=== PATIENT | male | born 1980 | race Caucasian/White ===

== ENCOUNTER 2020-12-12 20:19 | Emergency (ER) | payer OTHER, MEDICAID, SELFPAY ==
[2020-12-12 20:38] VITALS: BP 120/80; PULSE 68; RESP 16; TEMP 37.1; O2SAT 95; BMI 27.1
--- NOTE | 2020-12-13 00:17 | ED_ITS ---
HPI - Chest Pain General: Chief Complaint: Chest Pain Stated Complaint: chest burning, denies pain Time Seen by Provider: 12/13/20 00:17 History of Present Illness: HPI narrative: Mr. Rico is a 40-year-old gentleman with history of GERD requiring what was likely a Daisy procedure who presents emergency department due to worsening epigastric and abdominal pain. He had relief from his preliminary symptoms which were primarily difficulty swallowing after the procedure however over the past 3 months has had gradual onset of worsening of burning epigastric pain and generalized abdominal pain. He occasionally reports small-volume hematemesis. He denies associated lightheadedness, dizziness, shortness of breath. He denies infectious symptoms. Overall the course of symptoms has been worsening. No other specific exacerbating relieving factors. Review of Systems General: Reports: 10 or more systems reviewed and unremarkable except in HPI and below Narrative: CONSTITUTIONAL: denies fever, fatigue, weakness EYES - denies pain, denies loss of vision EARS - denies ear issues. NOSE - denies congestion or rhinorrhea. THROAT - denies sore throat or difficulty swallowing. CARDIOVASCULAR - denies chest pain and palpitations RESPIRATORY - denies shortness of breath and cough GASTROINTESTINAL -see HPI GENITOURINARY - denies dysuria or urinary frequency MUSCULOSKELETAL- denies deformity or pain SKIN - denies rashes or new changed skin lesions NEUROLOGIC - denies focal weakness or sensory changes HEMATOLOGIC/LYMPHATIC - denies easy bruising or lymphadenopathy. Physical Exam Narrative: EXAM NARRATIVE: GENERAL/CONSTITUTIONAL - well-appearing. Discomfort due to pain Eyes - PERRL, no conjunctival injection ENMT - Atraumatic external nose and ears. Moist mucous membranes NECK - supple. trachea midline CARDIOVASCULAR - regular rate and rhythm. Peripheral pulses 2+ and equal RESPIRATORY -clear to auscultation bilaterally. No retractions or accessory muscle use. ABDOMEN/GI -moderate tenderness to palpation in the epigastric region.Nondistended. No tenderness to percussion or evidence of peritonitis MSK - Extremities without obvious deformity or tenderness to palpation SKIN - Warm, Dry NEURO - alert and appropriately oriented. strength and sensation intact. Moves all extremities equally. PSYCH - Appropriate mood and affect Course ED course: - Patient was seen and evaluated by me at bedside - Patient placed on cardiac monitors, IV access obtained - Initial evaluation notable for exam as noted above - symptom treatment ordered - Labs notable for mild leukocytosis, no transaminitis or elevation in lipase -Given physical exam findings and complex surgical history imaging warranted. Imaging notable for no acute abnormality to explain patient's symptoms - Upon serial reexamination after treatment the patient was improved. He tolerated p.o. intake - Based on patient history, evaluation, labs, and imaging as interpreted the most likely cause of the patient's condition is unclear, given surgical history he likely requires EGD which can be performed in the outpatient setting given stable hemoglobin and CT findings. - The results of ED evaluation were discussed with the patient including prescriptions and/or symptomatic cares (if applicable) including appropriate and responsible use, followup plan, and return precautions. The patient verbalized understanding and felt safe for discharge. - Patient discharged in satisfactory condition. Vital Signs: Vital signs: Vital Signs Temperature 98.7 F 12/12/20 20:38 Pulse Rate 53 L 12/13/20 04:26 Respiratory Rate 18 12/13/20 04:26 Blood Pressure 125/94 12/13/20 04:26 Pulse Oximetry 97 12/13/20 04:26 MDM - Chest Pain Medical Records: Attestation: I reviewed the patient's medical records. Lab Data: Attestation: I reviewed the patient's lab results. Labs: Lab Results 12/13/20 12/13/20 Range/Units 00:25 00:25 WBC 11.6 H (4.0-10.0) 10^3/ uL RBC 4.84 (4.1-5.3) 10^6/u L Hgb 14.9 (11.7-16.6) g/dL Hct 45.1 (42.0-52.0) % MCV 93.2 (80-94) fl MCH 30.8 (28.0-34.0) pg MCHC 33.0 (30.0-36.0) g/dL RDW 13.3 (12.1-15.1) % Plt Count 294 (130-400) 10^3/c mm MPV 10.3 (7.4-10.4) fL Neut % (Auto) 54.4 % Lymph % (Auto) 34.0 % [place] % (Auto) 7.4 % Eos % (Auto) 3.1 % Baso % (Auto) 0.8 % Neut # (Auto) 6.31 (1.8-7.7) 10^3/u L Lymph # (Auto) 3.9 (0.8-4.8) 10^3/u L [place] # (Auto) 0.9 (0.2-0.9) 10^3/u L Eos # (Auto) 0.4 (0.0-0.8) 10^3/u L Baso # (Auto) 0.1 (0.0-0.1) 10^3/u L Nucleated RBC % (a uto) 0 % Nucleated RBCs # 0.0 /100WBC Sodium 141 (136-145) mmol/L Potassium 3.3 L (3.5-5.1) mmol/L Chloride 102 (98-107) mmol/L Carbon Dioxide 29 (22-29) mmol/L Anion Gap 13.3 (5-19) BUN 11 (6-20) mg/dL Creatinine 0.6 L (0.7-1.2) mg/dL GFR Calculation 150.0 H (90-130) mL/min Glucose 87 (65-115) mg/dL Calculated Osmolal ity 291 (285-295) mOsm/k g Calcium 8.9 (8.5-10.5) mg/dL Total Bilirubin 0.4 (0.15-1.2) mg/dL AST 17 (0-40) U/L ALT 25 (0-41) U/L Alkaline Phosphata se 112 (40-130) IU/L Total Protein 6.6 (6.6-8.7) g/dL Albumin 4.2 (3.5-5.2) g/dL Globulin 2.4 (1.3-4.6) g/dL Lipase 26 (13-60) U/L Discharge Plan Discharge Patient Disposition: Home Clinical Impression: Abdominal pain, Hematemesis Condition: Stable Prescriptions: New Zofran 4 mg tablet 4 mg PO TID PRN (Reason: nausea and vomiting) 5 Days Qty: 20 RF: 0 oxycodone 5 mg tablet 5 mg PO Q4H PRN (Reason: pain) Qty: 6 RF: 0 Discharge Orders: Discharge ED (Routine); Ordered 12/13/20 Ordered By: Harrison Cruz Discharge Diet: Usual diet Discharge Activity: Resume usual activity Patient Instructions: Abdominal Pain (ED), Opioid Safety Activity Restrictions/Additional Instructions: Thank you for visiting the emergency department. You were seen and evaluated for abdominal pain and hematemesis. The exact cause of your symptoms is somewhat unclear, your blood counts were stable. Given your complex history you likely need endoscopy. Please follow-up with your primary care provider. Please return to the emergency department for anything that you are concerned about and feel needs emergency department evaluation. Coding Level of Care Code ED Bacteriologist Food for Clair Mathew
[2020-12-13 00:28] VITALS: BP 130/85; PULSE 71; RESP 18; O2SAT 98
--- NOTE | 2020-12-13 00:38 | CTR_ITS ---
PROCEDURE INFORMATION: Exam: CT Chest With Contrast; Diagnostic Exam date and time: 12/13/2020 12:38 AM Age: 40 years old Clinical indication: Abdominal pain; Generalized; On breathing; Additional info: Hematemesis, history of lily, abd pain TECHNIQUE: Imaging protocol: Diagnostic computed tomography of the chest with contrast. Radiation optimization: All CT scans at this facility use at least one of these dose optimization techniques: automated exposure control; mA and/or kV adjustment per patient size (includes targeted exams where dose is matched to clinical indication); or iterative reconstruction. Contrast material: OMNI 300; Contrast volume: 95 ml; Contrast route: INTRAVENOUS (IV); COMPARISON: CT Abdomen/Pelvis Renal [id number] 08/07/2015 11:41 PM RADIATION DOSE METRICS: Total DLP (mGy-cm): 1933.03 FINDINGS: Lungs: Continued centrilobular bleb in the right lower lobe. Interval dependent atelectasis in both lower lobes. Minimal lingular stranding again evident. No ground-glass opacities or consolidation. Pleural spaces: No pneumothorax or pleural fluid. Heart: Interval inclusion of the area of the LAD calcifications. Continued slight cardiac prominence. No pericardial effusion. Aorta: No aortic aneurysm or dissection. Lymph nodes: No enlarged nodes. Bones/joints: Old compression fractures. No change in the degree of wedging of the lower thoracic compression fractures. Interval appearance of a thin linear sclerotic focus in the anterior aspect of the T12 compression fracture; no cortical buckling or discontinuity and no obvious fracture line in this area. Possible presence of a few old right rib fractures. Soft tissues: No acute soft tissue finding. IMPRESSION: 1. Interval dependent atelectasis. Chronic findings in the lower lungs detailed above. 2. LAD calcifications. Continued slight cardiac prominence. 3. Conceivable interval infraction of T12, age unknown. Other findings detailed above. PROCEDURE INFORMATION: Exam: CT Abdomen And Pelvis With Contrast Exam date and time: 12/13/2020 12:38 AM Age: 40 years old Clinical indication: Abdominal pain; Generalized; On breathing; Additional info: Hematemesis, history of lily, abd pain TECHNIQUE: Imaging protocol: Computed tomography of the abdomen and pelvis with contrast. Radiation optimization: All CT scans at this facility use at least one of these dose optimization techniques: automated exposure control; mA and/or kV adjustment per patient size (includes targeted exams where dose is matched to clinical indication); or iterative reconstruction. Contrast material: OMNI 300; Contrast volume: 95 ml; Contrast route: INTRAVENOUS (IV); COMPARISON: CT Abdomen/Pelvis Renal [id number] 08/07/2015 11:41 PM RADIATION DOSE METRICS: Total DLP (mGy-cm): 1933.03 FINDINGS: Liver: Continued slightly heterogeneous density in the liver, with parts of the liver having significantly lower density than in the spleen. No apparent enhancing liver mass. Gallbladder and bile ducts: Interval cholecystectomy. Still no biliary ductal dilatation. Pancreas: Pancreas still unremarkable. Spleen: Still no splenomegaly. Adrenal glands: Still no adrenal mass. Kidneys and ureters: Interval prominent enlargement of the irregular stone in the lower right kidney measuring 8.2 mm in oblique depth by 2.3 cm in oblique width. Still no hydronephrosis. Stomach and bowel: Interval Lily fundoplication. Still no obstruction. No apparent mucosal thickening. Appendix: Still no appendicitis. Intraperitoneal space: Still no free air. No change in the approximately 14 mm ovoid calcification in Morison's pouch. Vasculature: Continued atherosclerosis. Still no aortic aneurysm. Lymph nodes: No enlarged nodes. Urinary bladder: Unremarkable as visualized. Reproductive: Unremarkable as visualized. Bones/joints: Interval appearance of the horizontal thin sclerotic focus in the superior aspect of the mild L1 compression fracture, but no change in its wedging; still no cortical buckling in this body. No acute fracture elsewhere. Continued narrowing of the 2 lowest lumbar discs with annular bulging and/or a central focal disc protrusion at L4-L5. Soft tissues: Continued small left inguinal hernia containing fat. Small subcutaneous calcification in the lower lateral right hip possibly related to a prior injection; no inclusion of this area previously. CT/CT chest abd pel w con* IMPRESSION: 1. Possible interval infraction of L1, age unknown. 2. No apparent acute intra-abdominal findings. Interval cholecystectomy and Lily fundoplication. 3. Interval prominent enlargement of the irregular stone in the lower right kidney. Patchy fatty infiltration of the liver still conceivable. Other findings detailed above. Radiation Dose CTDIVOL = (mGy): DLP = 1933.03~1933.03 (mGy-cm)
[2020-12-13] MEDS: famotidine 20 mg/2 mL INJ 40 MG IVP (00:57)
[2020-12-13] MEDS: lidocaine 2% viscous 15 ML, aluminum-mag hydrox-simethicon 30 ML, sucralfate oral liq 1 GM PO (00:57)
[2020-12-13 00:58] VITALS: BP 130/85; PULSE 55; RESP 16; O2SAT 97
[2020-12-13] MEDS: sodium chloride 0.9% 1,000 ML 999 ML IV (01:00)
[2020-12-13] MEDS: iohexol 300 mg/mL 100 mL Btl IV (01:16)
[2020-12-13 02:14] LABS: Basophils # 0.1 10^3/uL (0.0-0.1); Basophils % 0.8 %; Eosinophils # 0.4 10^3/uL (0.0-0.8); Eosinophils % 3.1 %; Hematocrit 45.1 % (42.0-52.0); Hemoglobin 14.9 g/dL (11.7-16.6); Lymphocytes # 3.9 10^3/uL (0.8-4.8); Mean Corpuscular Hemoglobin 30.8 pg (28.0-34.0); Mean Corpuscular Volume 93.2 fl (80-94); Mean Platelet Volume 10.3 fL (7.4-10.4); Monocytes # 0.9 10^3/uL (0.2-0.9); Monocytes % 7.4 %; Neutrophils # 6.31 10^3/uL (1.8-7.7); Neutrophils % 54.4 %; Nucleated Red Blood Cells % 0 %; Platelet Count 294 10^3/cmm (130-400); Red Blood Count 4.84 10^6/uL (4.1-5.3); Red Cell Distribution Width 13.3 % (12.1-15.1); White Blood Count 11.6 10^3/uL (4.0-10.0)
[2020-12-13 02:23] LABS: Alanine Aminotransferase 25 U/L (0-41); Albumin Level 4.2 g/dL (3.5-5.2); Alkaline Phosphatase 112 IU/L (40-130); Anion Gap 13.3 (5-19); Aspartate Amino Transferase 17 U/L (0-40); Blood Urea Nitrogen 11 mg/dL (6-20); Calcium 8.9 mg/dL (8.5-10.5); Carbon Dioxide 29 mmol/L (22-29); Chloride 102 mmol/L (98-107); Globulin 2.4 g/dL (1.3-4.6); Glucose 87 mg/dL (65-115); Lipase 26 U/L (13-60); Osmolality Calculated 291 mOsm/kg (285-295); Potassium 3.3 mmol/L (3.5-5.1); Sodium 141 mmol/L (136-145); Total Bilirubin 0.4 mg/dL (0.15-1.2); Total Protein 6.6 g/dL (6.6-8.7)
[2020-12-13] MEDS: potassium chloride oral liq 20 mEq/15 mL UDC PO (03:34)
[2020-12-13 04:26] VITALS: BP 125/94; PULSE 53; RESP 18; O2SAT 97
--- NOTE | 2020-12-13 11:18 | DCPLANNER ---
manager speech had message to schedule an outpatient EGD for patient. manager speech sent patients information to Marlon Mcclellan at [facility] [place] General Surgery for a consult for an EGD. Patients information will be printed and reviewed. Clinic will call patient with appointment information.
--- NOTE | 2020-12-15 09:52 | DCPLANNER ---
Patient has a follow up appointment scheduled for , December 23, 2020 at 2:[address] Foreman at [facility] General Surgery. Clinic will call patient with appointment information.
--- NOTE | 2020-12-24 09:01 | DCPLANNER ---
Patient had a follow up appointment scheduled for 12.23.20 with general surgery - patient did attend appointment.
== END 2020-12-13 04:21 | disposition home or self-care (01) ==
PROVIDERS: Emergency Provider Emergency Medicine
DX: R10.9 Unspecified abdominal pain (principal); K92.0 Hematemesis
CPT/HCPCS: 71260; 74177; 80053; 83690; 85025; 96374; 99284; J3490; J7030; Q9967

== ENCOUNTER 2020-12-27 20:33 | Emergency (ER) | payer OTHER, SELFPAY ==
[2020-12-27 21:21] VITALS: BP 115/75; PULSE 99; RESP 20; TEMP 36.7; O2SAT 96
[2020-12-28] MEDS: lidocaine 2% viscous 15 ML, aluminum-mag hydrox-simethicon 30 ML, sucralfate oral liq 1 GM PO (01:25)
--- NOTE | 2020-12-28 01:30 | W.ED.ABDPA2 ---
HPI - Abdominal Pain General: Chief Complaint: Abdominal Pain Stated Complaint: chest burning/back burning, abdomen pain Time Seen by Provider: 12/28/20 01:30 History of Present Illness: HPI narrative: Patient comes in tonight with complaints of persistent vomiting and epigastric pain. Patient states that symptoms started this evening. Patient has a history of procedure for gastric esophageal reflux disorder. Patient recently been in the ER about 2 weeks ago for similar complaints and had been worked up thoroughly. Patient is also seeing Dr. Bertrand general surgeon for further evaluation. Associated Symptoms: Reports nausea and vomiting Review of Systems General: Reports: 10 or more systems reviewed and unremarkable except in HPI and below GI: Reports: abdominal pain, nausea and vomiting PFSH ED PFSH: Social History Smoking and tobacco status: never smoked Physical Exam Const: COMMON NORMALS: no acute distress and patient oriented x3 GENERAL APPEARANCE: cooperative HENMT: COMMON NORMALS: normocephalic, TM's normal bilaterally and Normal external nose present HEAD & SCALP: normal to inspection and normocephalic NOSE: Normal external nose present TYMPANIC MEMBRANE: TM's normal bilaterally MOUTH: Normal oral and palatal mucosa present THROAT: posterior oropharynx normal Eye: GENERAL EYE: appearance normal, both eyes and all related structures Neck/C-Spine: COMMON NORMALS: full ROM Lymph: LYMPHATIC: no lymphadenopathy noted Chest: COMMONS NORMALS: normal inspection of the chest Resp: COMMON NORMALS: normal respiratory effort EFFORT & INSPECTION: Yes able to speak in complete sentences Cardio: COMMON NORMALS: regular rate and regular rhythm RATE: regular rate RHYTHM: regular rhythm GI: COMMON NORMALS: Soft to palpation PALPATION: Yes Soft to palpation and Yes Tenderness to palpation present (GI) (Epigastric) : COMMON NORMALS: Yes no CVA tenderness BLADDER/KIDNEY EXAM: Yes no CVA tenderness Back/Pelvis: COMMON NORMALS: no CVA tenderness and thoracic and lumbar spine normal to inspection Extremity: COMMON NORMALS: normal to inspection Neuro: COMMON NORMALS: patient oriented x3 and moves all extremities Psych: COMMON NORMALS: mental status grossly normal and cooperative Skin: COMMON NORMALS: no rashes or lesions noted GENERAL SKIN EXAM: no rashes or lesions noted Course Vital Signs: Vital signs: Vital Signs Temperature 98.1 F 12/27/20 21:21 Pulse Rate 68 12/28/20 01:42 Respiratory Rate 19 H 12/28/20 01:42 Blood Pressure 123/77 12/28/20 01:42 Pulse Oximetry 96 12/28/20 01:42 MDM - Abdominal Pain MDM Narrative: Medical decision making narrative: Patient comes in for episodes of nausea and vomiting over the last 4 months. Patient has had a history of GERD with possible surgical repair. Patient been seen about 2 weeks ago and had a CT scan at that time which showed no significant abnormalities. Patient was referred to Dr. Doss and was evaluated with recommendations for a upper GI. Patient came in tonight when he had increased episodes of nausea and vomiting. On exam abdomen was soft with some epigastric tenderness. Skin was warm and dry. Vital signs were normal. Differential diagnosis includes dehydration, ruptured esophagus, GERD. Acute abdomen series noted normal gas bowel pattern without any signs of rupture. Laboratory values were unremarkable. Patient was given 1 L of IV fluids with 10 mg of Reglan and 40 mg of pantoprazole. We will start patient back on Reglan which he was supposed to be taking but he states that he has not picked up the prescription yet. We will also keep patient on some pantoprazole for further gastric relief. Patient was recommended to continue with treatment with primary care. Case management was requested to help patient with primary care to establish. Lab Data: Labs: Lab Results 12/28/20 12/28/20 12/28/20 00:24 00:24 00:24 WBC 11.6 10^3/uL H 10 ^3/uL (4.0-10.0) RBC 5.06 10^6/uL 10^6 /uL (4.1-5.3) Hgb 15.5 g/dL g/dL (11.7-16.6) Hct 48.4 % % (42.0-52.0) MCV 95.7 fl H fl (80-94) MCH 30.6 pg pg (28.0-34.0) MCHC 32.0 g/dL g/dL (30.0-36.0) RDW 13.7 % % (12.1-15.1) Plt Count 280 10^3/cmm 10^3 /cmm (130-400) MPV 9.8 fL fL (7.4-10.4) Neut % (Auto) 43.9 % % Lymph % (Auto) 40.0 % % [place] % (Auto) 9.2 % % Eos % (Auto) 5.5 % % Baso % (Auto) 1.1 % % Neut # (Auto) 5.08 10^3/uL 10^3 /uL (1.8-7.7) Lymph # (Auto) 4.6 10^3/uL 10^3/ uL (0.8-4.8) [place] # (Auto) 1.1 10^3/uL H 10^ 3/uL (0.2-0.9) Eos # (Auto) 0.6 10^3/uL 10^3/ uL (0.0-0.8) Baso # (Auto) 0.1 10^3/uL 10^3/ uL (0.0-0.1) Nucleated RBC % (a uto) 0 % % Nucleated RBCs # 0.0 /100WBC /100W BC Sodium 140 mmol/L mmol/L (136-145) Potassium 3.8 mmol/L mmol/L (3.5-5.1) Chloride 103 mmol/L mmol/L (98-107) Carbon Dioxide 23 mmol/L mmol/L (22-29) Anion Gap 17.8 (5-19) BUN 13 mg/dL mg/dL (6-20) Creatinine 0.6 mg/dL L mg/dL (0.7-1.2) GFR Calculation 150.0 mL/min H mL /min (90-130) Glucose 59 mg/dL L mg/dL (65-115) Calculated Osmolal ity 288 mOsm/kg mOsm/ kg (285-295) Calcium 9.3 mg/dL mg/dL (8.5-10.5) Total Bilirubin 0.2 mg/dL mg/dL (0.15-1.2) AST 12 U/L U/L (0-40) ALT 25 U/L U/L (0-41) Alkaline Phosphata se 116 IU/L IU/L (40-130) Troponin T Gen 5 n g/L 6 ng/L ng/L (0-15) Total Protein 7.2 g/dL g/dL (6.6-8.7) Albumin 4.3 g/dL g/dL (3.5-5.2) Globulin 2.9 g/dL g/dL (1.3-4.6) Lipase 42 U/L U/L (13-60) Urine Color Urine Appearance Urine pH Ur Specific Gravit y Urine Protein Urine Glucose (UA) Urine Ketones Urine Blood Urine Nitrate Urine Bilirubin Urine Urobilinogen Ur Leukocyte Aure ase SARS-CoV-2 Ag (Rap id) 12/28/20 12/28/20 01:55 02:40 WBC RBC Hgb Hct MCV MCH MCHC RDW Plt Count MPV Neut % (Auto) Lymph % (Auto) [place] % (Auto) Eos % (Auto) Baso % (Auto) Neut # (Auto) Lymph # (Auto) [place] # (Auto) Eos # (Auto) Baso # (Auto) Nucleated RBC % (a uto) Nucleated RBCs # Sodium Potassium Chloride Carbon Dioxide Anion Gap BUN Creatinine GFR Calculation Glucose Calculated Osmolal ity Calcium Total Bilirubin AST ALT Alkaline Phosphata se Troponin T Gen 5 n g/L Total Protein Albumin Globulin Lipase Urine Color Yellow (Yellow) Urine Appearance Clear (CLEAR) Urine pH 5 (5-7) Ur Specific Gravit y 1.030 (1.005-1.030) Urine Protein Neg (Negative) Urine Glucose (UA) Norm (Normal) Urine Ketones Negative (Negative) Urine Blood Neg (Negative) Urine Nitrate Negative (Negative) Urine Bilirubin Neg (Negative) Urine Urobilinogen 4 mg/dL H mg/dL (Negative) Ur Leukocyte Aure ase Negative (Negative) SARS-CoV-2 Ag (Rap id) Negative (Negative) Discharge Plan Discharge Patient Disposition: Home Clinical Impression: Gastritis Qualifiers: Gastritis type: unspecified gastritis Chronicity: chronic Gastritis bleeding: without bleeding Qualified Code(s): K29.50 - Unspecified chronic gastritis without bleeding Gastroesophageal reflux disease Qualifiers: Esophagitis presence: esophagitis presence not specified Qualified Code(s): K21.9 - Gastro-esophageal reflux disease without esophagitis Condition: Stable Prescriptions: New Reglan 10 mg tablet 10 mg PO QID 7 Days Qty: 28 RF: 0 pantoprazole 40 mg tablet,delayed release (DR/EC) 40 mg PO DAILY 28 Days Qty: 28 RF: 0 No Action varenicline [Chantix] 0.5 mg tablet 0.5 mg PO DAILY RF: 0 aspirin 81 mg tablet,delayed release (DR/EC) 81 mg PO DAILY RF: 0 nitroglycerin 0.4 mg tablet, sublingual 0.4 mg sublingual Q5M PRNRF: 0 oxycodone 5 mg tablet 5 mg PO Q4H PRN (Reason: pain) Qty: 6 RF: 0 Discharge Orders: Discharge ED (Routine); Ordered 12/28/20 Ordered By: Randell Longoria Discharge Diet: Advance as tolerated Discharge Activity: Increase activity as tolerated Patient Instructions: Opioid Safety Activity Restrictions/Additional Instructions: Continue with routine plan. Take Reglan 10 mg 4 times a day prior to each meal and bedtime. Use pantoprazole once daily 30 minutes before your first meal of the day. Avoid any carbonated beverages. Drink plenty of water. Follow-up with primary care for further instruction. Continue with routine care with Dr. Schmitz. Coding Level of Care Code ED Driller Brake Lining for Clair Fwd Exam Comprehensive
[2020-12-28 01:37] LABS: Basophils # 0.1 10^3/uL (0.0-0.1); Basophils % 1.1 %; Eosinophils # 0.6 10^3/uL (0.0-0.8); Eosinophils % 5.5 %; Hematocrit 48.4 % (42.0-52.0); Hemoglobin 15.5 g/dL (11.7-16.6); Lymphocytes # 4.6 10^3/uL (0.8-4.8); Mean Corpuscular Hemoglobin 30.6 pg (28.0-34.0); Mean Corpuscular Volume 95.7 fl (80-94); Mean Platelet Volume 9.8 fL (7.4-10.4); Monocytes # 1.1 10^3/uL (0.2-0.9); Monocytes % 9.2 %; Neutrophils # 5.08 10^3/uL (1.8-7.7); Neutrophils % 43.9 %; Nucleated Red Blood Cells % 0 %; Platelet Count 280 10^3/cmm (130-400); Red Blood Count 5.06 10^6/uL (4.1-5.3); Red Cell Distribution Width 13.7 % (12.1-15.1); White Blood Count 11.6 10^3/uL (4.0-10.0)
--- NOTE | 2020-12-28 01:41 | PC.NURSE ---
Unable to provide urine specimen. Will try again in a few minutes.
[2020-12-28 01:42] VITALS: BP 123/77; PULSE 68; RESP 19; O2SAT 96
[2020-12-28 01:57] LABS: Troponin T (5th) Once 6 ng/L (0-15)
--- NOTE | 2020-12-28 02:15 | XRR_ITS ---
PROCEDURE INFORMATION: Exam: XR Complete Acute Abdomen Series Including Chest Exam date and time: 12/28/2020 2:15 AM Age: 40 years old Clinical indication: Abdominal pain; Generalized; Additional info: Abd pain, TECHNIQUE: Imaging protocol: XR complete acute abdomen series, including 2 or more views of the abdomen and a single view chest. COMPARISON: CT chest abd pel w con* 12/13/2020 1:12 AM FINDINGS: Lungs: Continued slight stranding due to atelectasis or scar in the lateral left lung base. Minimal atelectasis in the right posterior sulcus still likely. No consolidation. Pleural spaces: No pneumothorax or apparent pleural fluid. Heart/Mediastinum: No cardiomegaly. Diaphragm: Continued mild elevation of the left hemidiaphragm. Gastrointestinal tract: Somewhat prominent gas throughout the small bowel and colon without significant dilatation. Intraperitoneal space: Still no pneumoperitoneum. Continued surgical clips bilaterally in the upper abdomen. Organs: Continued prominent stone or cluster of stones in the right lower kidney. Bones/joints: No suggestion of acute bony disease. Soft tissues: No acute finding. XR/XR acute abdomen series [id number] IMPRESSION: 1. No apparent bowel obstruction. No pneumoperitoneum. Gastroenteritis or developing ileus not excluded. 2. Slight atelectasis in the lung bases as before. 3. Continued prominent stone or cluster of stones in the right lower kidney. Other findings detailed above.
[2020-12-28 02:28] LABS: Alanine Aminotransferase 25 U/L (0-41); Albumin Level 4.3 g/dL (3.5-5.2); Alkaline Phosphatase 116 IU/L (40-130); Anion Gap 17.8 (5-19); Aspartate Amino Transferase 12 U/L (0-40); Blood Urea Nitrogen 13 mg/dL (6-20); Calcium 9.3 mg/dL (8.5-10.5); Carbon Dioxide 23 mmol/L (22-29); Chloride 103 mmol/L (98-107); Globulin 2.9 g/dL (1.3-4.6); Glucose 59 mg/dL (65-115); Lipase 42 U/L (13-60); Osmolality Calculated 288 mOsm/kg (285-295); Potassium 3.8 mmol/L (3.5-5.1); Sodium 140 mmol/L (136-145); Total Bilirubin 0.2 mg/dL (0.15-1.2); Total Protein 7.2 g/dL (6.6-8.7)
[2020-12-28 02:31] LABS: SARS Covid-2 Antigen Negative (Negative)
[2020-12-28] MEDS: sodium chloride 0.9% 1,000 ML 999 ML IV (02:43)
[2020-12-28] MEDS: pantoprazole 40 mg SDV IVP (02:43)
[2020-12-28] MEDS: metoclopramide 5 mg/mL SDV 2 mL 10 MG IVP (02:43)
[2020-12-28 02:45] LABS: Add Urine Microscopic? NO; Charge for UA Resulting for Rev
[2020-12-28 02:56] LABS: Blood Urine Neg (Negative); Glucose Urine UA Norm (Normal); Ketones Urine Negative (Negative); Nitrate Urine Negative (Negative); Protein Urine Neg (Negative); Urine Appearance Clear (CLEAR); Urine Color Yellow (Yellow); pH Urine 5 (5-7)
[2020-12-28 02:57] LABS: Bilirubin Urine Neg (Negative); Leukocyte Esterase Urine Negative (Negative); Urobilinogen Urine 4 mg/dL (Negative)
[2020-12-28 03:36] VITALS: BP 121/81; PULSE 70; RESP 19; O2SAT 97
--- NOTE | 2020-12-29 11:41 | DCPLANNER ---
Addendum entered by Hoda Cox 04/21/21 17:38: Patient had a follow up appointment scheduled at [facility] - patient did attend appointment. Addendum entered by Hoda Cox 12/29/20 14:00: Patient called case finisher stating that he would like to get established with a primary care physician. records management manager called [facility] clinic, a follow up appointment was scheduled for December at 1:[address] Roach. records management manager called patient and gave patient the appointment information. Original Note: Patient had message to speak with patient about getting a pcp. records management manager called phone number [phone], unable to speak with patient at this time, and unable to leave a voicemail.
== END 2020-12-28 03:38 | disposition home or self-care (01) ==
PROVIDERS: Emergency Medicine; Emergency Provider Nurse Practitioner Family
DX: K29.50 Unspecified chronic gastritis without bleeding (principal); K21.9 Gastro-esophageal reflux disease without esophagitis; Z79.82 Long term (current) use of aspirin; Z20.822 Contact with and (suspected) exposure to COVID-19
CPT/HCPCS: 74022; 80053; 81003; 83690; 84484; 85025; 87426; 96361; 96374; 96375; 99284; C9113; J2765; J7030

== ENCOUNTER 2021-01-07 22:41 | Emergency (ER) | payer OTHER, SELFPAY ==
[2021-01-07 22:45] VITALS: BP 137/76; PULSE 99; RESP 16; TEMP 36.8; O2SAT 96; BMI 25.7
--- NOTE | 2021-01-07 23:22 | W.ED.ABDPA2 ---
Documented by User: ELYSE Son 01/08/21 01:02 HPI - Abdominal Pain General: Chief Complaint: Nausea/Vomiting/Diarrhea Stated Complaint: V-Blood\ Chest Hurts\Back Pain Time Seen by Provider: 01/07/21 23:15 History of Present Illness: HPI narrative: Patient said he vomited x3 today and had some blood with the vomit. Patient says he has upper epigastric pain. Says he is scheduled for a upper GI scope with Dr. Glasgow here on the . Patient has he has chronic back pain. Denies chest pain shortness of breath diaphoresis. MD elicited complaint: abdominal pain Pertinent past history: gastritis and myocardial infarction Onset (ago): week(s) Pain Consistency: intermittent Location: Epigastric, LUQ and RUQ Severity: moderate Quality: cramping and aching Exacerbating factors: nothing Relieving factors: nothing Associated Symptoms: Reports hematemesis, nausea and vomiting; Denies chills, fever(s) and hematochezia Review of Systems Const: Denies: fever(s), chills or body aches Eyes: Denies: change in vision or blurry vision ENMT: Denies: throat pain or nasal congestion Card: Denies: chest pain or dyspnea on exertion Resp: Denies: dyspnea, productive cough or non-productive cough GI: Reports: abdominal pain, nausea, vomiting and hematemesis; Denies: hematochezia : Denies: difficulty urinating Musc: Reports: back pain (Chronic); Denies: extremity pain Skin/Breast: Denies: rash Neuro: Denies: headache(s) Psych: Denies: anxiety or depression Anjum/Lymph: Denies: easy bruising PFSH ED PFSH: Medical History (Updated 01/08/21 @ 01:00 by ELYSE Son) Aorta aneurysm COPD (chronic obstructive pulmonary disease) Depression Gastroesophageal reflux disease Surgical History (Updated 01/06/21 @ 14:07 by Anna Roach MD) History of cholecystectomy Social History (Updated 01/06/21 @ 13:58 by Emily Briones CMA) Smoking and tobacco status: current every day smoker cigarettes Packs smoked per day: 0.5 Years cigarettes smoked: 20 Physical Exam Const: COMMON NORMALS: no acute distress, average body habitus and patient oriented x3 HENMT: COMMON NORMALS: normocephalic HEAD & SCALP: normal to inspection and normocephalic FACE & SINUS: normal facial exam Eye: COMMON NORMALS: conjunctivae normal GENERAL EYE: appearance normal, both eyes and all related structures CONJUNCTIVA: Yes conjunctivae normal Neck/C-Spine: COMMON NORMALS: no JVD Chest: COMMONS NORMALS: normal inspection of the chest Resp: COMMON NORMALS: normal respiratory effort and clear to auscultation bilaterally AUSCULTATION: clear to auscultation bilaterally Cardio: COMMON NORMALS: no JVD, regular rate and regular rhythm RATE: regular rate RHYTHM: regular rhythm GI: COMMON NORMALS: Normal to inspection, nondistended, normoactive bowel sounds present PALPATION: Yes Tenderness to palpation present (GI) (Epigastric) Details: LUQ and RUQ Extremity: COMMON NORMALS: normal to inspection and full ROM Neuro: COMMON NORMALS: patient oriented x3 Course Vital Signs: Vital signs: Vital Signs Temperature 98.2 F 01/07/21 22:45 Pulse Rate 78 01/08/21 01:29 Respiratory Rate 18 01/08/21 01:29 Blood Pressure 102/64 01/08/21 01:29 Pulse Oximetry 94 01/08/21 01:29 MDM - Abdominal Pain MDM Narrative: Medical decision making narrative: Patient with gastritis type symptoms. Patient said he had some blood with vomiting today. Was has been consistent with his other past visits. Recently seen by Dr. Foreman and he has scope scheduled. Patient's labs were all normal consistent with previous labs. Patient responded well to medication pain-free patient encouraged to keep his appointments as scheduled have a bland diet follow-up primary care medical provider as well and see if medication prescription need to be continued. Lab Data: Labs: Lab Results 01/08/21 01/08/21 00:05 00:05 WBC 11.5 10^3/uL H 10 ^3/uL (4.0-10.0) RBC 4.65 10^6/uL 10^6 /uL (4.1-5.3) Hgb 14.5 g/dL g/dL (11.7-16.6) Hct 44.5 % % (42.0-52.0) MCV 95.7 fl H fl (80-94) MCH 31.2 pg pg (28.0-34.0) MCHC 32.6 g/dL g/dL (30.0-36.0) RDW 13.6 % % (12.1-15.1) Plt Count 253 10^3/cmm 10^3 /cmm (130-400) MPV 9.9 fL fL (7.4-10.4) Neut % (Auto) 51.3 % % Lymph % (Auto) 34.1 % % Pacific % (Auto) 9.0 % % Eos % (Auto) 4.3 % % Baso % (Auto) 1.0 % % Neut # (Auto) 5.90 10^3/uL 10^3 /uL (1.8-7.7) Lymph # (Auto) 3.9 10^3/uL 10^3/ uL (0.8-4.8) Pacific # (Auto) 1.0 10^3/uL H 10^ 3/uL (0.2-0.9) Eos # (Auto) 0.5 10^3/uL 10^3/ uL (0.0-0.8) Baso # (Auto) 0.1 10^3/uL 10^3/ uL (0.0-0.1) Nucleated RBC % (a uto) 0 % % Nucleated RBCs # 0.0 /100WBC /100W BC Sodium 139 mmol/L mmol/L (136-145) Potassium 3.9 mmol/L mmol/L (3.5-5.1) Chloride 104 mmol/L mmol/L (98-107) Carbon Dioxide 24 mmol/L mmol/L (22-29) Anion Gap 14.9 (5-19) BUN 13 mg/dL mg/dL (6-20) Creatinine 0.5 mg/dL L mg/dL (0.7-1.2) GFR Calculation 185.1 mL/min H mL /min (90-130) Glucose 74 mg/dL mg/dL (65-115) Calculated Osmolal ity 287 mOsm/kg mOsm/ kg (285-295) Calcium 8.6 mg/dL mg/dL (8.5-10.5) Discharge Plan Discharge Patient Disposition: Home Clinical Impression: Gastritis Qualifiers: Gastritis type: unspecified gastritis Chronicity: chronic Gastritis bleeding: with bleeding Qualified Code(s): K29.51 - Unspecified chronic gastritis with bleeding Condition: Stable Prescriptions: New Zofran 4 mg tablet 4 mg PO Q8H 3 Days Qty: 9 RF: 0 Nexium 40 mg capsule,delayed release(DR/EC) 40 mg PO Q24H 28 Days Qty: 28 RF: 0 No Action aspirin 81 mg tablet,delayed release (DR/EC) 81 mg PO DAILY RF: 0 nitroglycerin 0.4 mg tablet, sublingual 0.4 mg sublingual Q5M PRNRF: 0 atorvastatin 20 mg tablet 20 mg PO DAILY 30 Days Qty: 30 RF: 2 bupropion HCl [Wellbutrin XL] 150 mg tablet extended release 24 hr 150 mg PO QAM 30 Days Qty: 30 RF: 2 Discharge Orders: Discharge ED (Routine); Ordered 01/08/21 Ordered By: Eugenio Oneill Discharge Diet: Advance as tolerated Discharge Activity: Increase activity as tolerated Patient Instructions: Gastritis (ED) Activity Restrictions/Additional Instructions: Follow-up with medical provider as directed. Take medications as prescribed. Return to the ER or your medical provider if condition worsens. Please read and understand discharge instructions. If any questions ask please. Keep appointment with Dr. Foreman for your upper GI scope. Coding Level of Care Code ED Inbound Sales Representative for Chg Fwd Exam Comprehensive Documented by User: Earl Michael DO 01/08/21 03:43 HPI - Abdominal Pain General: Chief Complaint: Nausea/Vomiting/Diarrhea Stated Complaint: V-Blood\ Chest Hurts\Back Pain Time Seen by Provider: 01/07/21 23:15 [facility] ED PFSH: Medical History (Updated 01/08/21 @ 01:00 by ELYSE Son) Aorta aneurysm COPD (chronic obstructive pulmonary disease) Depression Gastroesophageal reflux disease Surgical History (Updated 01/06/21 @ 14:07 by Anna Roach MD) History of cholecystectomy Social History (Updated 01/06/21 @ 13:58 by Emily Briones CMA) Smoking and tobacco status: current every day smoker cigarettes Packs smoked per day: 0.5 Years cigarettes smoked: 20 Course Vital Signs: Vital signs: Vital Signs Temperature 98.2 F 01/07/21 22:45 Pulse Rate 78 01/08/21 01:29 Respiratory Rate 18 01/08/21 01:29 Blood Pressure 102/64 01/08/21 01:29 Pulse Oximetry 94 01/08/21 01:29 MDM - Abdominal Pain MDM Narrative: Medical decision making narrative: This patient was originally seen by ELYSE Merino. I agree with his history, evaluation, and treatment. Lab Data: Labs: Lab Results 01/08/21 01/08/21 00:05 00:05 WBC 11.5 10^3/uL H 10 ^3/uL (4.0-10.0) RBC 4.65 10^6/uL 10^6 /uL (4.1-5.3) Hgb 14.5 g/dL g/dL (11.7-16.6) Hct 44.5 % % (42.0-52.0) MCV 95.7 fl H fl (80-94) MCH 31.2 pg pg (28.0-34.0) MCHC 32.6 g/dL g/dL (30.0-36.0) RDW 13.6 % % (12.1-15.1) Plt Count 253 10^3/cmm 10^3 /cmm (130-400) MPV 9.9 fL fL (7.4-10.4) Neut % (Auto) 51.3 % % Lymph % (Auto) 34.1 % % Pacific % (Auto) 9.0 % % Eos % (Auto) 4.3 % % Baso % (Auto) 1.0 % % Neut # (Auto) 5.90 10^3/uL 10^3 /uL (1.8-7.7) Lymph # (Auto) 3.9 10^3/uL 10^3/ uL (0.8-4.8) Pacific # (Auto) 1.0 10^3/uL H 10^ 3/uL (0.2-0.9) Eos # (Auto) 0.5 10^3/uL 10^3/ uL (0.0-0.8) Baso # (Auto) 0.1 10^3/uL 10^3/ uL (0.0-0.1) Nucleated RBC % (a uto) 0 % % Nucleated RBCs # 0.0 /100WBC /100W BC Sodium 139 mmol/L mmol/L (136-145) Potassium 3.9 mmol/L mmol/L (3.5-5.1) Chloride 104 mmol/L mmol/L (98-107) Carbon Dioxide 24 mmol/L mmol/L (22-29) Anion Gap 14.9 (5-19) BUN 13 mg/dL mg/dL (6-20) Creatinine 0.5 mg/dL L mg/dL (0.7-1.2) GFR Calculation 185.1 mL/min H mL /min (90-130) Glucose 74 mg/dL mg/dL (65-115) Calculated Osmolal ity 287 mOsm/kg mOsm/ kg (285-295) Calcium 8.6 mg/dL mg/dL (8.5-10.5) Discharge Plan Discharge Patient Disposition: Home Clinical Impression: Gastritis Qualifiers: Gastritis type: unspecified gastritis Chronicity: chronic Gastritis bleeding: with bleeding Qualified Code(s): K29.51 - Unspecified chronic gastritis with bleeding Condition: Stable Prescriptions: New Zofran 4 mg tablet 4 mg PO Q8H 3 Days Qty: 9 RF: 0 Nexium 40 mg capsule,delayed release(DR/EC) 40 mg PO Q24H 28 Days Qty: 28 RF: 0 No Action aspirin 81 mg tablet,delayed release (DR/EC) 81 mg PO DAILY RF: 0 nitroglycerin 0.4 mg tablet, sublingual 0.4 mg sublingual Q5M PRNRF: 0 atorvastatin 20 mg tablet 20 mg PO DAILY 30 Days Qty: 30 RF: 2 bupropion HCl [Wellbutrin XL] 150 mg tablet extended release 24 hr 150 mg PO QAM 30 Days Qty: 30 RF: 2 Discharge Orders: Discharge ED (Routine); Ordered 01/08/21 Ordered By: Eugenio Oneill Discharge Diet: Advance as tolerated Discharge Activity: Increase activity as tolerated Patient Instructions: Gastritis (ED) Activity Restrictions/Additional Instructions: Follow-up with medical provider as directed. Take medications as prescribed. Return to the ER or your medical provider if condition worsens. Please read and understand discharge instructions. If any questions ask please. Keep appointment with Dr. Foreman for your upper GI scope. Coding Level of Care Code ED Inbound Sales Representative for Chg Fwd Exam Comprehensive
[2021-01-08 00:16] LABS: Basophils # 0.1 10^3/uL (0.0-0.1); Eosinophils # 0.5 10^3/uL (0.0-0.8); Eosinophils % 4.3 %; Hematocrit 44.5 % (42.0-52.0); Hemoglobin 14.5 g/dL (11.7-16.6); Lymphocytes # 3.9 10^3/uL (0.8-4.8); Lymphocytes % 34.1 %; Mean Corpuscular HGB Conc 32.6 g/dL (30.0-36.0); Mean Corpuscular Hemoglobin 31.2 pg (28.0-34.0); Mean Corpuscular Volume 95.7 fl (80-94); Mean Platelet Volume 9.9 fL (7.4-10.4); Neutrophils % 51.3 %; Nucleated Red Blood Cells % 0 %; Platelet Count 253 10^3/cmm (130-400); Red Blood Count 4.65 10^6/uL (4.1-5.3); Red Cell Distribution Width 13.6 % (12.1-15.1); White Blood Count 11.5 10^3/uL (4.0-10.0)
[2021-01-08] MEDS: lidocaine 2% viscous 15 ML, aluminum-mag hydrox-simethicon 30 ML, sucralfate oral liq 1 GM PO (00:39)
[2021-01-08] MEDS: metoclopramide 5 mg/mL SDV 2 mL 10 MG IVP (00:40)
[2021-01-08 00:49] LABS: Anion Gap 14.9 (5-19); Blood Urea Nitrogen 13 mg/dL (6-20); Calcium 8.6 mg/dL (8.5-10.5); Carbon Dioxide 24 mmol/L (22-29); Chloride 104 mmol/L (98-107); Glomerular Filtration Rate 185.1 mL/min (90-130); Glucose 74 mg/dL (65-115); Osmolality Calculated 287 mOsm/kg (285-295); Potassium 3.9 mmol/L (3.5-5.1); Sodium 139 mmol/L (136-145)
[2021-01-08 01:29] VITALS: BP 102/64; PULSE 78; RESP 18; O2SAT 94
== END 2021-01-08 01:30 | disposition home or self-care (01) ==
PROVIDERS: Emergency Provider Nurse Practitioner Family
DX: K29.51 Unspecified chronic gastritis with bleeding (principal); Z79.82 Long term (current) use of aspirin; J44.9 Chronic obstructive pulmonary disease, unspecified; F17.210 Nicotine dependence, cigarettes, uncomplicated
CPT/HCPCS: 80048; 85025; 96374; 99283; J2765

== ENCOUNTER 2021-01-10 12:21 | Emergency (ER) | payer OTHER, SELFPAY ==
[2021-01-10 12:29] VITALS: BP 121/82; PULSE 76; RESP 16; TEMP 36.8; O2SAT 98
--- NOTE | 2021-01-10 13:44 | W.ED.ABDPA2 ---
HPI - Abdominal Pain General: Chief Complaint: Abdominal Pain Stated Complaint: Abdominal Pain, lower Right Side Time Seen by Provider: 01/10/21 13:41 History of Present Illness: HPI narrative: Mr. Rico is a 40-year-old gentleman with complex past medical history including GERD, tobaccoism, CAD, COPD, prior history of surgical cholecystectomy who presents to the emergency department due to right lower quadrant abdominal pain. Symptom onset was approximately 1 week ago. No specific provoking event occurred. He endorses initially mild and intermittent symptoms however he now has sharp aching abdominal pain which is constant. Intensity is moderate to severe. Pain is worse with movement. There are some radiation of the back and towards the groin.he denies testicular pain or other genital concerns. Mild associated nausea but no vomiting. No changes in bowel movements. He has had subjective fevers or chills. He has not tried home medications. No other specific exacerbating relieving factors identified. Review of Systems General: Reports: 10 or more systems reviewed and unremarkable except in HPI and below PFSH ED PFSH: Medical History Aorta aneurysm COPD (chronic obstructive pulmonary disease) Depression Gastroesophageal reflux disease Surgical History History of cholecystectomy Social History Smoking and tobacco status: current every day smoker cigarettes Packs smoked per day: 0.5 Years cigarettes smoked: 20 Physical Exam Narrative: EXAM NARRATIVE: GENERAL/CONSTITUTIONAL -mildly ill-appearing. Attempting to lay still, uncomfortable due to pain Eyes - PERRL, no conjunctival injection ENMT - Atraumatic external nose and ears. Moist mucous membranes NECK - supple. trachea midline CARDIOVASCULAR - regular rate and rhythm. Peripheral pulses 2+ and equal RESPIRATORY - clear to auscultation bilaterally. ABDOMEN/GI - generalized tenderness to palpation worse in the right lower quadrant. Mild localized tenderness to percussion without evidence of remote peritonitis MSK - Extremities without obvious deformity or tenderness to palpation SKIN - Warm, Dry NEURO - alert and appropriately oriented. strength and sensation intact. Moves all extremities equally. PSYCH - Appropriate mood and affect Course ED course: - Patient was seen and evaluated by me at bedside - Patient placed on cardiac monitors, IV access obtained - Initial evaluation notable for uncomfortable appearance, no acute distress. Abdomen is nondistended and no evidence of peritonitis. -Symptom treatment ordered - Labs notable for no leukocytosis, no significant metabolic abnormality. Metabolic panel with 10-15 RBCs, no evidence of urinary tract infection. - Imaging notable for no acute finding to explain patient's symptoms. He continues to have this nonobstructing large renal stone, though there is no evidence I wonder if he he has smaller stones that he passes and causes hematuria - Upon serial reexamination after treatment the patient was minimally improved - Based on patient history, evaluation, labs, and imaging as interpreted the most likely cause of the patient's condition is unclear abdominal pain. He has had recurrent visits for abdominal pain and no acute finding has been identified. - The results of ED evaluation were discussed with the patient including prescriptions and/or symptomatic cares (if applicable) including appropriate and responsible use, followup plan, and return precautions. The patient verbalized understanding and expressed frustration and not having an answer however felt safe for discharge. - Patient discharged in satisfactory condition. Vital Signs: Vital signs: Vital Signs Temperature 98.2 F 01/10/21 12:29 Pulse Rate 56 L 01/10/21 15:53 Respiratory Rate 18 01/10/21 15:53 Blood Pressure 132/96 01/10/21 15:53 Pulse Oximetry 99 01/10/21 15:53 MDM - Abdominal Pain Medical Records: Attestation: I reviewed the patient's medical records. Lab Data: Attestation: I reviewed the patient's lab results. Labs: Lab Results 01/10/21 01/10/21 01/10/21 14:30 14:30 15:59 WBC 9.8 10^3/uL 10^3/ uL (4.0-10.0) RBC 5.41 10^6/uL H 10 ^6/uL (4.1-5.3) Hgb 16.5 g/dL g/dL (11.7-16.6) Hct 50.3 % % (42.0-52.0) MCV 93.0 fl fl (80-94) MCH 30.5 pg pg (28.0-34.0) MCHC 32.8 g/dL g/dL (30.0-36.0) RDW 13.4 % % (12.1-15.1) Plt Count 277 10^3/cmm 10^3 /cmm (130-400) MPV 10.0 fL fL (7.4-10.4) Neut % (Auto) 54.9 % % Lymph % (Auto) 34.1 % % Dickenson % (Auto) 7.3 % % Eos % (Auto) 2.4 % % Baso % (Auto) 0.9 % % Neut # (Auto) 5.39 10^3/uL 10^3 /uL (1.8-7.7) Lymph # (Auto) 3.4 10^3/uL 10^3/ uL (0.8-4.8) Dickenson # (Auto) 0.7 10^3/uL 10^3/ uL (0.2-0.9) Eos # (Auto) 0.2 10^3/uL 10^3/ uL (0.0-0.8) Baso # (Auto) 0.1 10^3/uL 10^3/ uL (0.0-0.1) Nucleated RBC % (a uto) 0 % % Nucleated RBCs # 0.0 /100WBC /100W BC Sodium 137 mmol/L mmol/L (136-145) Potassium 4.1 mmol/L mmol/L (3.5-5.1) Chloride 98 mmol/L mmol/L (98-107) Carbon Dioxide 26 mmol/L mmol/L (22-29) Anion Gap 17.1 (5-19) BUN 11 mg/dL mg/dL (6-20) Creatinine 0.7 mg/dL mg/dL (0.7-1.2) GFR Calculation 125.5 mL/min mL/m in (90-130) Glucose 80 mg/dL mg/dL (65-115) Calculated Osmolal ity 282 mOsm/kg L mOs m/kg (285-295) Calcium 10.0 mg/dL mg/dL (8.5-10.5) Total Bilirubin 0.4 mg/dL mg/dL (0.15-1.2) AST 15 U/L U/L (0-40) ALT 27 U/L U/L (0-41) Alkaline Phosphata se 134 IU/L H IU/L (40-130) Total Protein 7.8 g/dL g/dL (6.6-8.7) Albumin 4.8 g/dL g/dL (3.5-5.2) Globulin 3.0 g/dL g/dL (1.3-4.6) Lipase 27 U/L U/L (13-60) Urine Color Yellow (Yellow) Urine Appearance Hazy A (CLEAR) Urine pH 7 (5-7) Ur Specific Gravit y 1.005 (1.005-1.030) Urine Protein Neg (Negative) Urine Glucose (UA) Norm (Normal) Urine Ketones Negative (Negative) Urine Blood 2+ H (Negative) Urine Nitrate Negative (Negative) Urine Bilirubin Neg (Negative) Urine Urobilinogen 1 mg/dL H mg/dL (Negative) Ur Leukocyte Aure ase Negative (Negative) Urine RBC 10-15 /hpf H /hpf (0-2) Urine WBC None /hpf /hpf (0-5) Ur Squamous Epith Cells None /hpf /hpf (0-5) Amorphous Sediment Not Reportable Urine Bacteria None /hpf /hpf (NONE) Discharge Plan Discharge Patient Disposition: Home Clinical Impression: Abdominal pain Condition: Stable Prescriptions: No Action aspirin 81 mg tablet,delayed release (DR/EC) 81 mg PO QAM RF: 0 nitroglycerin 0.4 mg tablet, sublingual 0.4 mg sublingual Q5M PRN (Reason: Chest Pain) RF: 0 Creon 24,000-76,000 -120,000 unit capsule,delayed release(DR/EC) See Rx Instructions .ROUTE .COMPLEX RF: 0 atorvastatin 20 mg tablet 20 mg PO BEDTIME RF: 0 Zofran 4 mg tablet 4 mg PO Q8H PRN (Reason: Nausea And Vomiting) RF: 0 Discharge Orders: Discharge ED (Routine); Ordered 01/10/21 Ordered By: Harrison Cruz Discharge Diet: Advance as tolerated and Clear Liquid Discharge Activity: Increase activity as tolerated Patient Instructions: Abdominal Pain (ED), Opioid Safety Activity Restrictions/Additional Instructions: Thank you for visiting the emergency department. You were seen and evaluated for abdominal pain. The exact cause of your symptoms is unclear. CT imaging did not reveal a cause, laboratory evaluation also was reassuring. Please follow-up with your primary care provider. Please return to the emergency department for anything that you are concerned about and feel needs emergency department evaluation. Coding Level of Care Code ED [employer] Liaison Officer for Clair Mathew
--- NOTE | 2021-01-10 13:58 | CT_ITS ---
WS: [id number] CT ABDOMEN AND PELVIS WITH CONTRAST HISTORY: RLQ abd pain TECHNIQUE: Imaging performed of the abdomen and pelvis with IV contrast. Single phase imaging of the abdomen. Coronal and sagittal reformats are submitted. All CT scans at [facility] use at [address] one of these dose optimization techniques: automated exposure control; mA and/or kV adjustment per patient size (includes targeted exams where dose is matched to clinical indication); or iterative re construction. IV CONTRAST: Omnipaque 300; 95 mL IV. Oral contrast: No DLP: 1824.66 mGy.cm COMPARISON: 12/13/2020 Lower thorax: Mild dependent changes at the lung bases. Heart is normal size. Small hiatal hernia. Liver/biliary system: Mild diffuse hepatic steatosis. No bile duct dilatation. No metastatic lesion. Gallbladder: Status post cholecystectomy. Pancreas: Normal size pancreas and pancreatic duct. No adjacent inflammation. Spleen: Normal size spleen. No mass or infarct. Adrenal glands: Normal. Right kidney: Normal size kidney. No hydronephrosis. Nonobstructing large calcification in the lower pole measures 19 x 18 mm. Left kidney: Normal. Aorta: Mild atherosclerosis with no aneurysm. Lymphadenopathy: None. Free fluid: None. GI tract: Normal appendix. Mild fluid-filled small bowel and portions of the RIGHT colon. No obstruct isai pattern. There are a few scattered diverticula in the descending colon with no acute inflammation . Abdominal wall: Unremarkable abdominal wall. No hernia. Pelvis: Normally distended urinary bladder. No adenopathy. Bones: Unremarkable. CT/CT abdomen pelvis w con* [id number] IMPRESSION: 1. No acute abdominal or pelvic abnormalities. 2. Normal appendix. 3. Mild fluid distention of the small bowel and cecum. May be related to mild gastroenteritis. No obstruction. 4. Nonobstructing large calcification lower pole RIGHT kidney.
[2021-01-10] MEDS: lactated ringers 1,000 ML 999 ML IV (14:47)
[2021-01-10] MEDS: ondansetron 2 mg/ML SDV 2 mL 4 MG IVP (14:48)
[2021-01-10 14:49] VITALS: RESP 18; O2SAT 97
[2021-01-10] MEDS: morphine 4 mg/mL SDV 1 mL IVP (14:49)
[2021-01-10 14:52] LABS: Basophils # 0.1 10^3/uL (0.0-0.1); Basophils % 0.9 %; Eosinophils # 0.2 10^3/uL (0.0-0.8); Eosinophils % 2.4 %; Hematocrit 50.3 % (42.0-52.0); Hemoglobin 16.5 g/dL (11.7-16.6); Lymphocytes # 3.4 10^3/uL (0.8-4.8); Lymphocytes % 34.1 %; Mean Corpuscular HGB Conc 32.8 g/dL (30.0-36.0); Mean Corpuscular Hemoglobin 30.5 pg (28.0-34.0); Monocytes # 0.7 10^3/uL (0.2-0.9); Monocytes % 7.3 %; Neutrophils # 5.39 10^3/uL (1.8-7.7); Neutrophils % 54.9 %; Nucleated Red Blood Cells % 0 %; Platelet Count 277 10^3/cmm (130-400); Red Blood Count 5.41 10^6/uL (4.1-5.3); Red Cell Distribution Width 13.4 % (12.1-15.1); White Blood Count 9.8 10^3/uL (4.0-10.0)
[2021-01-10] MEDS: iohexol 300 mg/mL 100 mL Btl IV (15:01)
[2021-01-10 15:25] LABS: Alanine Aminotransferase 27 U/L (0-41); Albumin Level 4.8 g/dL (3.5-5.2); Alkaline Phosphatase 134 IU/L (40-130); Anion Gap 17.1 (5-19); Aspartate Amino Transferase 15 U/L (0-40); Blood Urea Nitrogen 11 mg/dL (6-20); Carbon Dioxide 26 mmol/L (22-29); Chloride 98 mmol/L (98-107); Glomerular Filtration Rate 125.5 mL/min (90-130); Glucose 80 mg/dL (65-115); Lipase 27 U/L (13-60); Osmolality Calculated 282 mOsm/kg (285-295); Potassium 4.1 mmol/L (3.5-5.1); Sodium 137 mmol/L (136-145); Total Bilirubin 0.4 mg/dL (0.15-1.2); Total Protein 7.8 g/dL (6.6-8.7)
--- NOTE | 2021-01-10 15:38 | PC.PHAR ---
pt states he takes care of his own medications-pt states he isnt going to fill the wellbutrin xl 150mg qam written on 01/06/21 pt states he has taken it before and it doesnt work-rx written on 01/08/21 for nexium 40mg daily pt states he isnt going to take states it doesnt work-pt states the medications entered are the only medications he takes
[2021-01-10 15:53] VITALS: BP 132/96; PULSE 56; RESP 18; O2SAT 99
[2021-01-10] MEDS: acetaminophen 500 mg Tablet 1000 MG PO (16:00)
[2021-01-10] MEDS: dicyclomine 10 mg Capsule PO (16:00)
[2021-01-10 16:27] LABS: Add Urine Microscopic? YES; Bilirubin Urine Neg (Negative); Blood Urine 2+ (Negative); Glucose Urine UA Norm (Normal); Ketones Urine Negative (Negative); Leukocyte Esterase Urine Negative (Negative); Nitrate Urine Negative (Negative); Protein Urine Neg (Negative); Specific Gravity, Urine 1.005 (1.005-1.030); Urine Appearance Hazy (CLEAR); Urine Color Yellow (Yellow); Urobilinogen Urine 1 mg/dL (Negative); pH Urine 7 (5-7)
[2021-01-10 16:37] LABS: Add Urine Culture? Yes
== END 2021-01-10 17:25 | disposition home or self-care (01) ==
PROVIDERS: Physician Assistant; Emergency Provider Emergency Medicine
DX: R10.9 Unspecified abdominal pain (principal); Z79.82 Long term (current) use of aspirin; J44.9 Chronic obstructive pulmonary disease, unspecified; F17.210 Nicotine dependence, cigarettes, uncomplicated
CPT/HCPCS: 74177; 80053; 81001; 83690; 85025; 87086; 96361; 96374; 96375; 99284; J2270; J2405; Q9967

== ENCOUNTER 2021-01-28 21:46 | Emergency (ER) | payer OTHER, SELFPAY ==
[2021-01-28 22:04] VITALS: BP 112/78; PULSE 92; RESP 18; TEMP 36.1; O2SAT 96; BMI 27.1
== END 2021-01-29 00:22 ==
LOC: ER 22:03
PROVIDERS: PCP Family Medicine
DX: Z53.21 Procedure and treatment not carried out due to patient leaving prior to being seen by health care provider (principal)
CPT/HCPCS: 99281

== ENCOUNTER 2021-03-28 02:42 | Emergency (ER) | payer OTHER, MEDICAID, SELFPAY ==
[2021-03-28 02:47] VITALS: BP 122/82; PULSE 92; RESP 16; TEMP 37.3; O2SAT 98; BMI 27.1
[2021-03-28] MEDS: sodium chloride 0.9% 1,000 ML 999 ML IV (03:28)
[2021-03-28 03:34] LABS: Basophils # 0.1 10^3/uL (0.0-0.1); Basophils % 0.8 %; Eosinophils # 0.5 10^3/uL (0.0-0.8); Eosinophils % 3.8 %; Hemoglobin 15.9 g/dL (11.7-16.6); Lymphocytes # 3.5 10^3/uL (0.8-4.8); Mean Corpuscular HGB Conc 33.8 g/dL (30.0-36.0); Mean Corpuscular Hemoglobin 31.3 pg (28.0-34.0); Mean Corpuscular Volume 92.5 fl (80-94); Mean Platelet Volume 9.6 fL (7.4-10.4); Monocytes # 1.1 10^3/uL (0.2-0.9); Monocytes % 8.8 %; Neutrophils # 7.22 10^3/uL (1.8-7.7); Neutrophils % 58.1 %; Nucleated Red Blood Cells % 0 %; Platelet Count 269 10^3/cmm (130-400); Red Blood Count 5.08 10^6/uL (4.1-5.3); Red Cell Distribution Width 13.3 % (12.1-15.1); White Blood Count 12.4 10^3/uL (4.0-10.0)
[2021-03-28 03:51] LABS: Alanine Aminotransferase 25 U/L (0-41); Albumin Level 4.2 g/dL (3.5-5.2); Alkaline Phosphatase 124 IU/L (40-130); Aspartate Amino Transferase 14 U/L (0-40); Blood Urea Nitrogen 11 mg/dL (6-20); C Reactive Protein 1.8 mg/L (0.0-4.9); Calcium 8.5 mg/dL (8.5-10.5); Carbon Dioxide 22 mmol/L (22-29); Chloride 107 mmol/L (98-107); Globulin 2.4 g/dL (1.3-4.6); Glomerular Filtration Rate 149.2 mL/min (90-130); Glucose 95 mg/dL (65-115); Lipase 27 U/L (13-60); Osmolality Calculated 295 mOsm/kg (285-295); Sodium 143 mmol/L (136-145); Total Bilirubin 0.2 mg/dL (0.15-1.2); Total Protein 6.6 g/dL (6.6-8.7)
--- NOTE | 2021-03-28 03:54 | CTR_ITS ---
PROCEDURE INFORMATION: Exam: CT Abdomen And Pelvis With Contrast Exam date and time: 03/28/2021 3:54 AM Age: 41 years old Clinical indication: Nausea and other: Diarrhea; Abdominal pain; Localized; Right lower quadrant (rlq); Prior surgery; Surgery date: 6+ months; Surgery type: Appy; Patient HX: Colonoscopy 3 days ago; Additional info: Rlq pain, colonoscopy 3d ago TECHNIQUE: Imaging protocol: Computed tomography of the abdomen and pelvis with contrast. Total images: 264 Radiation optimization: All CT scans at this facility use at least one of these dose optimization techniques: automated exposure control; mA and/or kV adjustment per patient size (includes targeted exams where dose is matched to clinical indication); or iterative reconstruction. Contrast material: OMNI 350; Contrast volume: 95 ml; Contrast route: INTRAVENOUS (IV); COMPARISON: CT abdomen pelvis w con* [id number] 01/10/2021 2:57 PM RADIATION DOSE METRICS: Total DLP (mGy-cm): 1915.54 FINDINGS: Lungs: Mild dependent atelectasis. Liver: Normal. No mass. Gallbladder and bile ducts: Prior cholecystectomy noted. Pancreas: Normal. No ductal dilation. Spleen: Normal. No splenomegaly. Adrenal glands: Normal. No mass. Kidneys and ureters: Developing staghorn calculus within the right kidney measuring 1.7 cm in diameter with no evidence of obstruction. No ureteral nor bladder calculi detected. Stomach and bowel: Mild stool burden. Appendix: No evidence of appendicitis. Intraperitoneal space: Unremarkable. No free air. No significant fluid collection. Vasculature: Mild atherosclerotic disease is evident. Incidental venous phlebolith noted. Lymph nodes: Unremarkable. No enlarged lymph nodes. Urinary bladder: See Kidneys and ureters finding. Reproductive: Unremarkable as visualized. Bones/joints: Mild scattered degenerative changes of the spine. L5-S1 Facet joint degenerative changes are present. Soft tissues: Unremarkable. CT/CT abdomen pelvis w con* [id number] IMPRESSION: 1. Developing staghorn calculus within the right kidney measuring 1.7 cm in diameter with no evidence of obstruction. No ureteral nor bladder calculi detected. 2. Mild stool burden. 3. No acute process identified.
[2021-03-28 04:02] VITALS: RESP 18
[2021-03-28] MEDS: HYDROmorphone 1 mg/mL INJ 1 mL IVP (04:02)
[2021-03-28] MEDS: ondansetron 2 mg/ML SDV 2 mL 4 MG IVP (04:02)
[2021-03-28] MEDS: iohexol 350 mg/mL 100 mL Btl IV (04:34)
[2021-03-28 04:57] VITALS: BP 140/92; PULSE 69; RESP 16; O2SAT 95
[2021-03-28 05:25] VITALS: BP 140/92; PULSE 69; RESP 15; O2SAT 95
[2021-03-28 05:25] LABS: Add Urine Microscopic? YES; Bilirubin Urine Neg (Negative); Blood Urine 2+ (Negative); Glucose Urine UA Norm (Normal); Ketones Urine 1+ (Negative); Leukocyte Esterase Urine Negative (Negative); Nitrate Urine Negative (Negative); Protein Urine Neg (Negative); Urine Appearance Clear (CLEAR); Urine Color Yellow (Yellow); Urobilinogen Urine 4 mg/dL (Negative); pH Urine 5 (5-7)
[2021-03-28 05:37] LABS: Add Urine Culture? No; Bacteria Urine TRACE /hpf; Mucus Urine 3+ /hpf; Squamous Epithelial Cell Urine 0-4 /hpf (0-5); WBC Urine 0-4 /hpf (0-5)
--- NOTE | 2021-03-29 22:52 | ED_ITS ---
HPI - Abdominal Pain General: Chief Complaint: Abdominal Pain Stated Complaint: ADB Pain Time Seen by Provider: 03/28/21 03:44 History of Present Illness: HPI narrative: 41yo male hx of CAD presenting with abdominal pain. Mainly RLQ pain. Notes low grade fever, + blood in stool. Nausea. No vomiting. Has presented with similar complaints prior. MD elicited complaint: abdominal pain Pertinent past history: none Associated Symptoms: Reports change in stool character, GI cramping, hematochezia and nausea; Denies coffee ground emesis, fever(s) and vomiting Review of Systems Const: Denies: fever(s) Card: Denies: chest pain or palpitations Resp: Denies: dyspnea, productive cough or non-productive cough GI: Reports: nausea, GI cramping, change in stool character and hematochezia; Denies: vomiting or coffee ground emesis PFSH ED PFSH: Medical History Aorta aneurysm COPD (chronic obstructive pulmonary disease) Depression Gastroesophageal reflux disease Surgical History History of cholecystectomy Social History Smoking and tobacco status: current every day smoker cigarettes Packs smoked per day: 0.5 Years cigarettes smoked: 20 Physical Exam Const: COMMON NORMALS: patient oriented x3 GENERAL APPEARANCE: cooperative and well developed; not comfortable HENMT: COMMON NORMALS: normocephalic HEAD & SCALP: normocephalic Chest: COMMONS NORMALS: normal inspection of the chest Resp: COMMON NORMALS: normal respiratory effort and clear to auscultation bilaterally EFFORT & INSPECTION: Yes respiratory distress AUSCULTATION: clear to auscultation bilaterally Cardio: COMMON NORMALS: regular rate and regular rhythm RATE: regular rate RHYTHM: regular rhythm GI: COMMON NORMALS: Normal to inspection, nondistended, normoactive bowel sounds present PALPATION: Yes Tenderness to palpation present (GI) Details: RLQ Neuro: COMMON NORMALS: patient oriented x3 Course Vital Signs: Vital signs: Vital Signs Temperature 99.2 F 03/28/21 02:47 Pulse Rate 69 03/28/21 05:25 Respiratory Rate 15 03/28/21 05:25 Blood Pressure 140/92 03/28/21 05:25 Pulse Oximetry 95 03/28/21 05:25 MDM - Abdominal Pain MDM Narrative: Medical decision making narrative: WBC 12. other labs not remarkable. He is more comfortable after medication. CT negative for acute process in the belly. will allow discharge with symptomatic treatment. Close outpt followup. Lab Data: Labs: Lab Results 03/28/21 03/28/21 03/28/21 03:30 03:30 05:05 WBC 12.4 10^3/uL H 10 ^3/uL (4.0-10.0) RBC 5.08 10^6/uL 10^6 /uL (4.1-5.3) Hgb 15.9 g/dL g/dL (11.7-16.6) Hct 47.0 % % (42.0-52.0) MCV 92.5 fl fl (80-94) MCH 31.3 pg pg (28.0-34.0) MCHC 33.8 g/dL g/dL (30.0-36.0) RDW 13.3 % % (12.1-15.1) Plt Count 269 10^3/cmm 10^3 /cmm (130-400) MPV 9.6 fL fL (7.4-10.4) Neut % (Auto) 58.1 % % Lymph % (Auto) 28.0 % % Menard % (Auto) 8.8 % % Eos % (Auto) 3.8 % % Baso % (Auto) 0.8 % % Neut # (Auto) 7.22 10^3/uL 10^3 /uL (1.8-7.7) Lymph # (Auto) 3.5 10^3/uL 10^3/ uL (0.8-4.8) Menard # (Auto) 1.1 10^3/uL H 10^ 3/uL (0.2-0.9) Eos # (Auto) 0.5 10^3/uL 10^3/ uL (0.0-0.8) Baso # (Auto) 0.1 10^3/uL 10^3/ uL (0.0-0.1) Nucleated RBC % (a uto) 0 % % Nucleated RBCs # 0.0 /100WBC /100W BC Sodium 143 mmol/L mmol/L (136-145) Potassium 4.0 mmol/L mmol/L (3.5-5.1) Chloride 107 mmol/L mmol/L (98-107) Carbon Dioxide 22 mmol/L mmol/L (22-29) Anion Gap 18.0 (5-19) BUN 11 mg/dL mg/dL (6-20) Creatinine 0.6 mg/dL L mg/dL (0.7-1.2) GFR Calculation 149.2 mL/min H mL /min (90-130) Glucose 95 mg/dL mg/dL (65-115) Calculated Osmolal ity 295 mOsm/kg mOsm/ kg (285-295) Calcium 8.5 mg/dL mg/dL (8.5-10.5) Total Bilirubin 0.2 mg/dL mg/dL (0.15-1.2) AST 14 U/L U/L (0-40) ALT 25 U/L U/L (0-41) Alkaline Phosphata se 124 IU/L IU/L (40-130) C-Reactive Protein 1.8 mg/L mg/L (0.0-4.9) Total Protein 6.6 g/dL g/dL (6.6-8.7) Albumin 4.2 g/dL g/dL (3.5-5.2) Globulin 2.4 g/dL g/dL (1.3-4.6) Lipase 27 U/L U/L (13-60) Urine Color Yellow (Yellow) Urine Appearance Clear (CLEAR) Urine pH 5 (5-7) Ur Specific Gravit y 1.030 (1.005-1.030) Urine Protein Neg (Negative) Urine Glucose (UA) Norm (Normal) Urine Ketones 1+ H (Negative) Urine Blood 2+ H (Negative) Urine Nitrate Negative (Negative) Urine Bilirubin Neg (Negative) Urine Urobilinogen 4 mg/dL H mg/dL (Negative) Ur Leukocyte Aure ase Negative (Negative) Urine RBC 5-10 /hpf H /hpf (0-2) Urine WBC 0-4 /hpf H /hpf (0-5) Ur Squamous Epith Cells 0-4 /hpf H /hpf (0-5) Amorphous Sediment Not Reportable Urine Bacteria Trace /hpf /hpf (NONE) Urine Mucus 3+ /hpf /hpf Discharge Plan Discharge Patient Disposition: Home Clinical Impression: Abdominal pain Qualifiers: Abdominal location: right lower quadrant Qualified Code(s): R10.31 - Right lower quadrant pain Condition: Stable Prescriptions: New hydrocodone-acetaminophen 5-325 mg tablet 1 tab PO Q8H PRN (Reason: pain) Qty: 7 RF: 0 Zofran 4 mg tablet 4 mg PO Q6H PRN (Reason: nausea and vomiting) Qty: 10 RF: 0 No Action aspirin 81 mg tablet,delayed release (DR/EC) 81 mg PO QAM RF: 0 nitroglycerin 0.4 mg tablet, sublingual 0.4 mg sublingual Q5M PRN (Reason: Chest Pain) RF: 0 Creon 24,000-76,000 -120,000 unit capsule,delayed release(DR/EC) See Rx Instructions .ROUTE .COMPLEX RF: 0 atorvastatin 20 mg tablet 20 mg PO BEDTIME RF: 0 Zofran 4 mg tablet 4 mg PO Q8H PRN (Reason: Nausea And Vomiting) RF: 0 Discharge Orders: Discharge ED (Routine); Ordered 03/28/21 Ordered By: Earl Michael Referrals: Anna Roach MD [Primary Care Provider] - 1-3 days Patient Instructions: Abdominal Pain (ED), Opioid Safety Activity Restrictions/Additional Instructions: Return for fever greater than 100, vomiting liquids or medications, worsening pain despite treatment, any other concerning symptoms. Coding Level of Care Code ED [employer]en[employer] Tile Setter for Clair Mathew
== END 2021-03-28 05:27 | disposition home or self-care (01) ==
PROVIDERS: Emergency Provider Emergency Medicine; PCP Family Medicine
DX: R10.31 Right lower quadrant pain (principal); Z79.82 Long term (current) use of aspirin; J44.9 Chronic obstructive pulmonary disease, unspecified; F17.210 Nicotine dependence, cigarettes, uncomplicated
CPT/HCPCS: 74177; 80053; 81001; 83690; 85025; 86140; 96361; 96374; 96375; 99283; J1170; J2405; J7030; Q9967

== ENCOUNTER → 2021-04-05 12:22 | Outpatient (BNVA) | payer OTHER, SELFPAY | PROVIDERS: PCP Family Medicine; Visit Provider Internal Medicine Cardiovascular Disease | DX: Z01.818 Encounter for other preprocedural examination (principal); I25.118 Atherosclerotic heart disease of native coronary artery with other forms of angina pectoris | CPT/HCPCS: 80048; 85025; 85610; 87635 ==

== ENCOUNTER → 2021-04-06 16:10 | Outpatient (BNVA) | payer OTHER, SELFPAY | PROVIDERS: PCP Family Medicine; Visit Provider Internal Medicine Cardiovascular Disease | DX: Z20.822 Contact with and (suspected) exposure to COVID-19 (principal) | CPT/HCPCS: 87635 ==

== ENCOUNTER 2021-04-11 07:08 | Outpatient (CLI) | payer OTHER, MEDICAID, SELFPAY ==
[2021-04-11] VITALS (41 sets, daily range): BP systolic 110–168; BP diastolic 74–101; PULSE 58–98; RESP 10–25; TEMP 36.6–36.8; O2SAT 89–96; BMI 29.2
--- NOTE | 2021-04-11 07:30 | XACV_ITS ---
Exam Room: [facility] Ht: 183 cm Wt: 98 kg BSA: 2.25 m2 Gender: Male : 1980 Any Known Allergies: No known allergies Exam Priority: Routine Indication(s): - Chest pain Procedure(s): Procedure Description: Diagnostic procedure Procedure Description: PCI procedure Procedure Description: Drug Eluting Coronary Stent Procedure Description: Miscellaneous Procedure Description: ACT Procedure Description: Coronary Angiography Procedure Description: Pressure Wire Salvador PAK; Diagnostic Cath Status: Elective Diagnostic Findings * Left Main has no disease. * Circumflex has no disease. * Right Coronary Artery has no disease. * Mid Left Anterior Descending: significant 80% stenosis, KELLEE: 3 flow. * Mid Left Anterior Descending: mild 40% stenosis, KELLEE: 3 flow. * Coronary angiography shows left dominance. PCI Status: Elective PCI Indication: New Onset Angina <= 2 months Interventional Findings * Mid Left Anterior Descendin% stenosis treated with a TREK 3.00X12 RX BALLOON, KARON Nicolas ALBER 3.5X15 JADA, and MDMarquis CAAL EUPHORA RX [id number] BALLOON. 0% residual stenosis, KELLEE: 3 flow. Conclusions 1. There is significant coronary artery disease with one vessel disease. 2. Mid Left Anterior Descending was treated with a Balloon, Drug Eluting Stent, and Balloon. 3. IFR: After equalizing the distal and proximal pressure of FFR wire proximal to the lesion, mid LAD lesion was crossed with IFR wire. Spot iFR was noted to be 0.87 which was significant. Pullback was performed which improved across the proximal lesion the gradient to 0.97 this mean the proximal lesion is not significant.. Recommendations * 1-Return to inpatient for close monitoring and routine cath care 2-Risk factor modification for secondary prevention 3-Statin and aspirin 81 mg life--long, if tolerated 4-Patient was pre-loaded with 600 mg of Plavix, continue Plavix 75mg p.o. daily for at least one year. We will assess at the end of one year again to continue if further or not 5-Continue optimal medical management 6-Follow up with Dr. Amaya in four weeks and your primary care in 10 days. Diagnostic RX Recommendation: PCI w/o planned CABG Pressures Phase:Rest AO : / ( 0 ) @ 7:29:00 AM 115 / 77 ( 96 ) @ 8:09:00 AM Clinical Evaluation EBL: 5mL-10mL Procedural Details Procedure Consent Obtained. Admit Source: Out Patient. Current Diagnosis : Chest Pain. Pre-Procedure Time Out. Identified patient by full name and date of as verbalized by the patient/guarantor. Does the consent match the physician's order: Yes. Accurate & Complete Informed Consent: Yes. Inpatient/Outpatient History & Physical on Chart: Yes. If H&P is completed, is and addenduem needed: No; If yes, is the addendum complete: N/A. Visualize and Verify Site with Patient/Guarantor: N/A. Relevant Radiology Images available: N/A. The risks, benefits, and alternatives of sedation and/or procedure were discussed by physician. The patient agrees to continue. Procedure started. [facility] Clinical Fraility Score: 3: Managing Well. Customer Acquisition Specialist Indications: Worsening Angina. Chest Pain Symptom Assessment: Typical Angina Symptoms. Cardiovascular Instability: No. Stable. Correct patient, site and procedure confirmed by cath team. Current diagnosis: Chest Pain. PERRLA. Strong, equal hand chain tender bilaterally. Lungs clear x 5 lobes. IV Site on Arrival: 18 gauge in the right anticubital. IV Fluids: 0.9% NaCl at KVO. 0 mL infused prior to laborer prestressed concrete. Pre Procedural Pulses: bilateral dorsalis pedis was Doppled. Pre Procedural Pulses: bilateral posterior tibial was Doppled. Pre Procedural Pulses: bilateral radial was 3+. Oxygen started at 3liters/min via nasal canula. Eugenio Fuentes is scrub assist. bilateral groins was prepped with chloroprep then draped in the usual sterile fashion. Baseline sample Acquired. HR: 52 BPM. Physician notified. Patient's family unavailable. Physician arrived. Physician scrubbed in. Immediate Pre-Procedure Time Out. Correct Patient: Yes; Correct Procedure: Yes; Correct Site: Yes; Correct Patient Position: Yes; Correct Supplies: Yes; Dried Flammable Prep: Yes; Blood Products Available: N/A;. Lidocaine 1% infiltrated to the right groin. Equipment: 5F - Femoral. Heparinized Saline (2 units/mL), 1000 mL bag. Kit, Micropuncture. Cardiac Cath Pack. ACIST Manifold Kit Model BT 2000. Equipment: 6F - Femoral. Arterial access obtained with micropuncture set. A CRD 5F JL4 Diagnostic Catheter was advanced over the wire and used for Left coronary angiography. Multiple views taken of left coronary artery. Catheter removed over the standard wire. A CRD 5F JR4 Diagnostic Catheter was advanced over the wire and used for Right coronary angiography. Multiple views taken of right coronary artery. Catheter removed over the standard wire. Inventory is CRD 6FR XB4 GUIDE. 6 chinese XB 4 guide catheter was inserted over the wire. Guide seated in LCS. Angiography preformed. Inventory is Endoflator. IFR wire inserted. IFR wire advanced across LAD lesion. IFR measurements obtained. IFR mid LAD lesion 0.87 and proximal LAD lesion 0.97. IFR wire removed. Runthrough guidewire was advanced through the guide catheter to lesion in the mid LAD. Inventory is TR 180cm Runthrough NS extra floppy 0.014 wire. Angiography preformed. Inflation number : 1 A AB TREK 3.00X12 RX BALLOON was prepped and advanced across the Mid LAD , then inflated to 12 RAMIRO for 0:14 seconds. Inflation number: 2 The AB TREK 3.00X12 RX BALLOON was reinflated across the Mid LAD, to 16 RAMIRO for 0:13 seconds. Angiography preformed. Balloon out. Inflation Number : 3 A KARON Nicolas ALBER 3.5X15 JADA -Lot Number#[id number] was prepped and advanced across the Mid LAD. The stent was deployed at 18 RAMIRO for 0:24 seconds. EXP 12/21/23. Angiography preformed. Stent balloon out over wire. Inflation number : 4 A MDT NC EUPHORA RX [id number] BALLOON was prepped and advanced across the Mid LAD , then inflated to 14 RAMIRO for 0:24 seconds. Inflation number: 5 The MDT NC EUPHORA RX [id number] BALLOON was reinflated across the Mid LAD, to 18 RAMIRO for 0:18 seconds. Angiography preformed. Balloon out. Angiography preformed. Wire out. Guide catheter out over the standard wire. ACT drawn. Results 219 seconds. Therapeutic limits - pre-heparin administration 90-150 seconds and monitoring heparin during a vascular procedure >250 seconds. A Right femoral angiogram was performed to determine safe placement of closure device. Perclose attempted but failed to deploy and achieve hemostasis. 6 chinese short sheath reinserted. A Suture was successful obtaining hemostatsis at the Right Femoral artery insertion site. Sheath(s) sutured into position with 2-0 silk and sterile 4x4's and Op-site applied over the site. No oozing or signs and symptoms of hematoma noted. Arterial sheath flushed and connected to tranducer and pressure bag with heparinized saline. Post Procedure: Pulses reassessed and unchanged. PERRLA. Strong, equal hand chain tender bilaterally. No VTE prophylaxis required. Medication's Wasted: Lidocaine 1% = 10 mL. Medication's Wasted: Heparin = 1000 units. Total IV fluids: 79.2. mL. Fluoro: 11:08. Contrast type used: Omnipaque 300 mgI/mL, 500 mL bottle. [id number]. Post-op diagnosis: LAD stenosis. Complications: None. Estimated blood loss: 5mL-10mL. Responsiveness - Normal response to verbal stimuli; alert and oriented, PERRLA. Airway - Unaffected, no intervention required; spontaneous ventilation. Circulation: W/N/L, pulses unchanged. Nausea/Vomiting: N/A. Procedure completed. Patient transferred by bed to 1st floor. Vital chart was stopped. Access Site Site: Right Femoral artery Sheath Size: 6 Fr Hemostasis Method: Suture Hemostasis Success: Successful Procedure Medications Start: 9:23 AM Stop: 9:23 AM Medication: Versed Amount: 1 mg Route: I.V. Start: 9:23 AM Stop: 9:23 AM Medication: Fentanyl Amount: 50 mcg Route: I.V. Start: 9:39 AM Stop: 9:39 AM Medication: Versed Amount: 1 mg Route: I.V. Start: 9:39 AM Stop: 9:39 AM Medication: Fentanyl Amount: 50 mcg Route: I.V. Start: 9:46 AM Stop: 9:46 AM Medication: Heparin Amount: 5000 units Route: I.V. Start: 9:46 AM Stop: 9:46 AM Medication: Versed Amount: 1 mg Route: I.V. Start: 9:58 AM Stop: 9:58 AM Medication: Heparin Amount: 4000 units Route: I.V. Start: 10:00 AM Stop: 10:00 AM Medication: Aggrastat 12.5 mg/250 mL Amount: 49 ml Route: I.V. bolus Start: 10:01 AM Stop: 10:01 AM Medication: Aggrastat 12.5 mg/250 mL Amount: 17.6 ml/hr Route: I.V. bolus Start: 10:07 AM Stop: 10:07 AM Medication: Heparin Amount: 2000 units Route: I.V. Start: 10:17 AM Stop: 10:17 AM Medication: Heparin Amount: 2000 units Route: I.V. Start: 10:23 AM Stop: 10:23 AM Medication: Versed Amount: 1 mg Route: I.V. I, the attending physician, have reviewed and verified all procedure medications. Yes, all medications given per verbal order History/Risk Factors Hypertension: No Dyslipidemia: No Peripheral Arterial Disease (PAD): No Myocardial Infarction (CT): No Obesity: No Renal Disease: No Tobacco Use: Current/Recent(w/in 1 year) Prior Interventions PCI: No CABG: No Valve Surgery: No Report Signatures Finalized by Jesus Franco MD on 04/24/2021 04:16 PM
[2021-04-11] MEDS: diphenhydrAMINE 50 mg Capsule PO (07:45)
--- NOTE | 2021-04-11 09:07 | P.HP_ITS ---
Same Day Surgery H&P Indication for Procedure/HPI DATE OF PROCEDURE: April 11, 2021 CHIEF COMPLAINT/INDICATIONFOR SURGICAL PROCEDURE: Chest pain shortness of breath PREOP DIAGNOSIS: Chest chest pain shortness of breath PLANNED PROCEDRUE: Operation Date: 04/11/21 08:30 Proposed Procedures p Cardiac Catheterization(Left) - Jesus Franco MD Patient is a 41-year-old male past medical history significant for hypertension hyperlipidemia history of nonobstructive coronary artery disease proven with FFR at an outside hospital 1 year ago when 50 to 60% mid LAD lesion was thought not to be significant moreover he has history of Eli esophagus but continues to feel worse with chest pain or shortness of breath. Dr. Mcfarland his mash filter cloth changer will adjust would like to proceed with left heart cath. Patient has been explained all risk benefit and already for the procedure he understands risk for major minor bleed urgent emergent bypass surgery stroke . Medications/Allergies* Home Medications Medication Instructions Recorded Confirmed Type nitroglycerin 0.4 mg sublingual 0.4 mg SUBLINGUAL Q5M PRN 12/23/20 04/11/21 History tablet gabapentin 600 mg PO BID 04/11/21 04/11/21 History Allergies/Adverse Reactions Allergy/AdvReac Type Severity Reaction Status Date / Time No Known Allergies Allergy Verified 02/01/21 10:22 Current Medications: Generic Name Dose Route Start Last Admin Trade Name Freq PRN Reason Stop Dose Admin Sodium Chloride 1,000 mls @ 50 mls/hr 04/11/21 07:30 04/11/21 08:13 Sodium Chloride 0.9% IV 04/12/21 03:29 Not Given .Q20H ONE Pertinent History/Comorbid Conditions* Medical History (Updated 04/05/21 @ 00:00 by ) Aorta aneurysm COPD (chronic obstructive pulmonary disease) Depression Gastroesophageal reflux disease Surgical History (Updated 01/06/21 @ 14:07 by Anna Roach MD) History of cholecystectomy Social History Smoking and tobacco status: current every day smoker cigarettes Packs smoked per day: 0.5 Years cigarettes smoked: 20 Pertinent Exam Findings alert, oriented x 3, clear to auscultation bilaterally and regular rate & rhythm Conscious Sedation Assessment PATIENT ASSESSED PRIOR TO SEDATION, WITH NO CHANGE NOTED: Yes AIRWAY EVAL/ANESTHESIA PLAN: ASA II and Risks, benefits & alternatives of sedation and/or procedure discussed ADDITIONAL INFORMATION: Patient has been explained all risk benefits and alter upper [place] for the procedure he understand risk for stroke major minor bleed urgent emergent bypass surgery. He would like to proceed with that with Recommendations Surgery/Procedure today Coding Level of Care Code Acute Case Management Rn for Clair Mathew
--- NOTE | 2021-04-11 11:10 | PC.NURSE ---
Received patient at 1040 from heart cath lab nurse. MANSI Thompson reported that patient is to have 600mg of plavix, and that aggrastat is to run 2.5 hours after the plavix is given. Telephoned Dr. Franco and received verbal orders for plavix and aggrastat.
[2021-04-11] MEDS: clopidogrel 300 mg Tablet 600 MG PO (11:44)
[2021-04-11 15:45] LABS: Partial Thromboplastin Time 39.3 SECONDS (23.9-36.7)
[2021-04-11] MEDS: HYDROcodone-acetaminophen 5-325 mg Tablet 1 TAB PO ×2 (17:21→20:55)
[2021-04-11] MEDS: aspirin 325 mg Tablet PO (17:22)
[2021-04-11] MEDS: metoprolol succinate ER (24 HR) 25 mg Tablet 12.5 MG PO (17:22)
[2021-04-11] MEDS: sodium chloride 0.9% 1,000 ML 100 ML IV ×2 (20:48→21:02)
[2021-04-11] MEDS: atorvastatin 40 mg Tablet 80 MG PO (20:50)
--- NOTE | 2021-04-11 22:41 | PC.NURSE ---
Patient alert and oriented. Report received from MANSI Devlin. Patient unable to get up and move until 2129. Patient states pain to right groin where sheath had been pulled. Site bandage c/d/i. Will continue to monitor.
--- NOTE | 2021-04-11 23:00 | PC.NURSE ---
Patient walked to nurses station and asked if he could go outside for fresh air. Educated to patient that he needed to stay on the this unit to be able to be monitored. Patient asked if he could have a soda and snack. Was taken to patient. Will continue to monitor.
[2021-04-12] MEDS: HYDROcodone-acetaminophen 5-325 mg Tablet 1 TAB PO (01:16)
--- NOTE | 2021-04-12 01:17 | ECG_ITS ---
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 Measurements Intervals [place] Rate: 83 P: 9 MN: 162 QRS: 28 QRSD: 106 T: 44 QT: 331 QTc: 390 Interpretive Statements SINUS RHYTHM MODERATE T-WAVE ABNORMALITY, CONSIDER ANTEROLATERAL ISCHEMIA [-0.1+ mV T-WAVE IN V3-V6] Compared to ECG 12/16/2015 05:51:39 No significant changes Electronically Signed On 04-13-2021 20:00:00 MEMBERSHIP ASSISTANT by Don Bradley M.D. [id number]
--- NOTE | 2021-04-12 01:18 | PC.NURSE ---
Patient hit call light asking for a pain pill. When getting to patient's room with PRN PO pain medication, nurse assessed pain. Patient stated that pain is his chest 9/10 and right groin site 9/10. Right groin site WNL. Patient does not appear to be in any distress. VSS. EKG ordered.
[2021-04-12 02:15] LABS: Add Urine Culture? Yes; Add Urine Microscopic? YES; Bacteria Urine 1+ /hpf; Bilirubin Urine Neg (Negative); Blood Urine 3+ (Negative); Glucose Urine UA Norm (Normal); Ketones Urine Negative (Negative); Leukocyte Esterase Urine Negative (Negative); Nitrate Urine Negative (Negative); Protein Urine Trace (Negative); RBC Urine >100 /hpf (0-2); Specific Gravity, Urine 1.015 (1.005-1.030); Squamous Epithelial Cell Urine RARE /hpf (0-5); Urine Appearance Cloudy (CLEAR); Urine Color Dark Yellow (Yellow); Urobilinogen Urine 1 mg/dL (Negative); pH Urine 5 (5-7)
[2021-04-12 03:32] LABS: Basophils # 0.1 10^3/uL (0.0-0.1); Basophils % 0.6 %; Eosinophils # 0.5 10^3/uL (0.0-0.8); Hematocrit 47.3 % (42.0-52.0); Hemoglobin 15.5 g/dL (11.7-16.6); Lymphocytes # 3.3 10^3/uL (0.8-4.8); Lymphocytes % 28.2 %; Mean Corpuscular HGB Conc 32.8 g/dL (30.0-36.0); Mean Corpuscular Hemoglobin 30.6 pg (28.0-34.0); Mean Corpuscular Volume 93.5 fl (80-94); Mean Platelet Volume 9.8 fL (7.4-10.4); Monocytes # 1.1 10^3/uL (0.2-0.9); Monocytes % 9.5 %; Neutrophils # 6.74 10^3/uL (1.8-7.7); Neutrophils % 57.3 %; Nucleated Red Blood Cells % 0 %; Platelet Count 267 10^3/cmm (130-400); Red Blood Count 5.06 10^6/uL (4.1-5.3); Red Cell Distribution Width 13.4 % (12.1-15.1); White Blood Count 11.8 10^3/uL (4.0-10.0)
[2021-04-12 03:57] LABS: Anion Gap 15.9 (5-19); Blood Urea Nitrogen 10 mg/dL (6-20); Calcium 8.6 mg/dL (8.5-10.5); Carbon Dioxide 24 mmol/L (22-29); Chloride 106 mmol/L (98-107); Glomerular Filtration Rate 149.2 mL/min (90-130); Glucose 109 mg/dL (65-115); Osmolality Calculated 294 mOsm/kg (285-295); Potassium 3.9 mmol/L (3.5-5.1); Sodium 142 mmol/L (136-145)
[2021-04-12 04:37] VITALS: PULSE 81
--- NOTE | 2021-04-12 06:04 | PC.NURSE ---
Patient alert and oriented. Independent. Patient still continuing to have pain in groin area and chest. Pain medications given per md order. Fluids still infusing. Patient urine has been sent to lab. Will continue to monitor.
[2021-04-12] MEDS: sodium chloride 0.9% 1,000 ML 100 ML IV (06:39)
--- NOTE | 2021-04-12 06:53 | PC.NURSE ---
Shift Note Frequent safety and comfort rounds continue. Orders and/or nursing care completed as indicated. Patient monitored for response to intervention and treatment(s). Education provided includes not leaving the unit as he needs to be monitored. Patient and/or business services sales representative verbalizes understanding. Will continue to monitor.
[2021-04-12 08:08] VITALS: BP 117/75; PULSE 68; RESP 14; O2SAT 91
[2021-04-12] MEDS: clopidogrel 75 mg Tablet PO (08:10)
[2021-04-12] MEDS: metoprolol succinate ER (24 HR) 25 mg Tablet 12.5 MG PO (08:10)
[2021-04-12] MEDS: aspirin 81 mg EC Tablet PO (08:10)
--- NOTE | 2021-04-12 09:14 | P.DS_ITS ---
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 Baker patient went coronary angiogram he was noted to have 2 tandem lesion in the mid LAD proximal 1 was 40 to 50% wide mid and distal lesion appeared to be significant 80% spot IFR was performed which was 0.87 and significant gradient was confirmed across the lesion by withdrawing wire in between 2 lesion which improved to 0.97. Therefore we decided to proceed with balloon angioplasty followed by stent placement in the significant lesion. Excellent angiographic result with KELLEE-3 flow was r estored. Post PCI course remains uncomplicated. Overall doing fine from a cardiovascular perspective this morning he is being discharged home with instruction to continue Plavix aspirin statin and rest of the medicine without interruption for at least 1 year after that we will revisit to continue Plavix or not Physical Exam Narrative: EXAM NARRATIVE: Vic GENERAL: Patient is alert, awake and oriented x3. NECK: No jugular vein distension. HEENT: No cyanosis. No icterus. No pallor. HEART: Regular S1 and S2. No murmur, rub or gallop. LUNGS: Clear to auscultate bilaterally. ABDOMEN: Soft, nontender and nondistended. Positive bowel sounds. No guarding, rebound or tenderness. CENTRAL NERVOUS SYSTEM: Grossly nonfocal. EXTREMITIES: Lower extremities without edema bilaterally. Discharge Data Data Completed and Pending: Pending at discharge Category Date Time Status MATERNITY NURSE request for service Routin e Exams 04/11/21 07:30 Taken Urine Culture [facility] 04/12/21 01:28 Received Labs from last 24 hours 04/12/21 04/12/21 04/12/21 03:14 03:14 01:28 WBC 11.8 H RBC 5.06 Hgb 15.5 Hct 47.3 MCV 93.5 MCH 30.6 MCHC 32.8 RDW 13.4 Plt Count 267 MPV 9.8 Neut % (Auto) 57.3 Lymph % (Auto) 28.2 [place] % (Auto) 9.5 Eos % (Auto) 4.0 Baso % (Auto) 0.6 Neut # (Auto) 6.74 Lymph # (Auto) 3.3 [place] # (Auto) 1.1 H Eos # (Auto) 0.5 Baso # (Auto) 0.1 Nucleated RBC % (a uto) 0 Nucleated RBCs # 0.0 APTT Sodium 142 Potassium 3.9 Chloride 106 Carbon Dioxide 24 Anion Gap 15.9 BUN 10 Creatinine 0.6 L GFR Calculation 149.2 H Glucose 109 Calculated Osmolal ity 294 Calcium 8.6 Urine Color Dark yellow Urine Appearance Cloudy Urine pH 5 Ur Specific Gravit y 1.015 Urine Protein Trace Urine Glucose (UA) Norm Urine Ketones Negative Urine Blood 3+ H Urine Nitrate Negative Urine Bilirubin Neg Urine Urobilinogen 1 H Ur Leukocyte Aure ase Negative Urine RBC >100 H Urine WBC 10-15 H Ur Squamous Epith Cells Rare Amorphous Sediment Not Reportable Urine Bacteria 1+ H 04/11/21 14:51 WBC RBC Hgb Hct MCV MCH MCHC RDW Plt Count MPV Neut % (Auto) Lymph % (Auto) [place] % (Auto) Eos % (Auto) Baso % (Auto) Neut # (Auto) Lymph # (Auto) [place] # (Auto) Eos # (Auto) Baso # (Auto) Nucleated RBC % (a uto) Nucleated RBCs # APTT 39.3 H Sodium Potassium Chloride Carbon Dioxide Anion Gap BUN Creatinine GFR Calculation Glucose Calculated Osmolal ity Calcium Urine Color Urine Appearance Urine pH Ur Specific Gravit y Urine Protein Urine Glucose (UA) Urine Ketones Urine Blood Urine Nitrate Urine Bilirubin Urine Urobilinogen Ur Leukocyte Aure ase Urine RBC Urine WBC Ur Squamous Epith Cells Amorphous Sediment Urine Bacteria Vitals: Last Vital Signs Temp 98.2 F 04/11/21 20:57 Pulse 68 04/12/21 08:08 Resp 14 04/12/21 08:08 BP 117/75 04/12/21 08:08 Pulse Ox 91 04/12/21 08:08 Discharge Plan Discharge Patient Disposition: Home Prescriptions: New atorvastatin 40 mg Tablet 80 mg PO BEDTIME Qty: 30 RF: 3 clopidogrel 75 mg Tablet 75 mg PO DAILY Qty: 90 RF: 4 aspirin 81 mg Tablet,Delayed Release (Dr/Ec) 81 mg PO DAILY Qty: 30 RF: 3 Continued nitroglycerin 0.4 mg tablet, sublingual 0.4 mg sublingual Q5M PRN (Reason: Chest Pain) RF: 0 gabapentin 600 mg Tablet 600 mg PO BID RF: 0 No Action cephalexin 500 mg capsule 500 mg PO TID 7 Days Qty: 21 RF: 0 Discharge Orders: Discharge Order (Routine); Ordered 04/12/21 Ordered By: Jesus Franco Referrals: Gurmeet Carpenter FNP [Nurse Practitioner] - (you have an appointment [facility] on[facility]ap[facility] at 830 am.if you have any questions,call [phone]) Missy Baker MD [Physician] - (you have an appointment with dr baker at [facility] on sunday,may 16 at 11:30.if you have any questions,call [phone]) Diet: Cardiac Patient Instructions: Aspirin (By mouth), Atorvastatin (By mouth) (Lipitor), Clopidogrel (By mouth) (Plavix), Post Angiogram Home Care Instructions Activity Restrictions/Additional Instructions: Follow-up with Dr. Baker in 4 weeks. Follow-up with Gurmeet Carpenter in 7 Discharge Date/Time: 04/12/21 10:19 Discharge Attestations Time Spent in Discharge Care*: less than 30 min Specific Discharge Activities: educating patient Quality Metrics Clinical Quality Measures During this hospital stay, did patient experience: None Coding Level of Care Code Established Pt Acute Chg FW DC note Patient Type Established History Detailed Exam Detailed Medical Decision Making Moderate Complexity
--- NOTE | 2021-04-12 10:16 | PC.NURSE ---
discharge instructions given and explained.pt verb understanding of instructions.discharged via w/c to exit.spouse to drive pt home
== END 2021-04-12 10:19 | disposition home or self-care (01) ==
LOC: CCL 07:11 → CSU 04-12 07:26
PROVIDERS: PCP Family Medicine; Visit Provider Internal Medicine Cardiovascular Disease
DX: I25.10 Atherosclerotic heart disease of native coronary artery without angina pectoris (principal); I10 Essential (primary) hypertension; E78.5 Hyperlipidemia, unspecified; J44.9 Chronic obstructive pulmonary disease, unspecified; F32.9 Major depressive disorder, single episode, unspecified; K21.9 Gastro-esophageal reflux disease without esophagitis
CPT/HCPCS: 36415; 80048; 81001; 85025; 85347; 85730; 87086; 93005; 93454; 93571; C1725; C1760; C1769; C1874; C1887; C1894; C9600; J1644; J2250; J3010; J3246; J3490; J7030; Q0163; Q9967

== ENCOUNTER 2021-04-19 01:39 | Emergency (ER) | payer OTHER, MEDICAID, SELFPAY ==
[2021-04-19 01:51] VITALS: BP 134/83; PULSE 97; RESP 18; TEMP 36.6; O2SAT 97; BMI 27.1
--- NOTE | 2021-04-19 01:57 | XRR_ITS ---
PROCEDURE INFORMATION: Exam: XR Chest Exam date and time: 04/19/2021 1:57 AM Age: 41 years old Clinical indication: Chest wall pain; Prior surgery; Surgery date: <1 month; Surgery type: Stent 8 days ago; Additional info: Cp TECHNIQUE: Imaging protocol: XR of the chest. Views: 1 view. COMPARISON: CR XR acute abdomen series [id number] 12/28/2020 2:20 AM FINDINGS: Lungs: Stable minimal linear density at left lung base. Pleural spaces: Unremarkable. No pleural effusion. No pneumothorax. Heart/Mediastinum: Unremarkable. No cardiomegaly. Bones/joints: No acute findings. XR/XR chest 1V portable [id number] IMPRESSION: No acute findings.
--- NOTE | 2021-04-19 01:57 | ECG_ITS ---
[facility] Test Date: 2021-04-19 Pat Name: Jovanny Rico Department: Room: Gender: Male Cable Braider: : 1980 Requested By: Oscar Mejia Order Number: [id number] Jody MD: Don Bradley M.D. Measurements Intervals [place] Rate: 84 P: 20 OR: 172 QRS: 21 QRSD: 99 T: 48 QT: 322 QTc: 381 Interpretive Statements SINUS RHYTHM MODERATE T-WAVE ABNORMALITY, CONSIDER ANTEROLATERAL ISCHEMIA [-0.1+ mV T-WAVE IN V3-V6] Compared to ECG 04/12/2021 01:42:34 No significant changes Electronically Signed On 04-20-2021 17:39:38 MANPOWER DEVELOPMENT ADVISOR by Don Bradley M.D. [id number]
--- NOTE | 2021-04-19 02:04 | USR_ITS ---
PROCEDURE INFORMATION: Exam: US Duplex Right Lower Extremity Arteries Or Arterial Bypass Grafts Exam date and time: 04/19/2021 2:04 AM Age: 41 years old Clinical indication: Pain; Leg, upper; Prior surgery; Surgery date: <1 month; Surgery type: Right groin cardiac catheterization 04/11/2021; Additional info: R/O pseudoaneurysm TECHNIQUE: Imaging protocol: Right Real-time duplex scan of the arteries or arterial bypass grafts of the right lower extremity with 2-D navas scale, color Doppler flow and spectral waveform analysis. Images documented and saved. COMPARISON: CT abdomen pelvis w con* [id number] 03/28/2021 4:33 AM FINDINGS: Evaluation of vasculature at proximal right thigh shows no evident pseudoaneurysm nor evidence for arteriovenous fistula. Common femoral, superficial femoral, and deep femoral arteries and veins are patent. At the site of palpable finding, there is a lymph node with typical morphology measuring 1.4 x 1.1 x 0.8 cm and is probably unchanged when correlated to previous CT evaluations. No appreciable hematoma. US/[place] [id number] IMPRESSION: No acute findings.
--- NOTE | 2021-04-19 02:05 | ED_ITS ---
HPI - Chest Pain General: Chief Complaint: Chest Pain Stated Complaint: Stent in Cant Pee\Knot in Groin Time Seen by Provider: 04/19/21 01:56 Source: patient Mode of arrival: ambulatory Limitations: no limitations History of Present Illness: HPI narrative: 41-year-old male who had a cath done on the and had a stent placed he states that since he had the stent placed he has been having constant chest pain that is mild in nature. States that sharp pain in the center of his chest currently 2 out of 10. He states the biggest thing is concerned about he had a knot in his right groin where they had access. He states he had warmness to touch and bruising as well and pain. States pain is a 3 out of 10 in his groin denies any worsening proving factors. He has follow-up with cardiology next week has not followed up since the stent. Associated symptoms: Deny abdominal pain, dyspnea, fever(s), nausea or vomiting Review of Systems Const: Denies: fever(s), chills, body aches or change in appetite Eyes: Denies: blurry vision or eye discomfort ENMT: Denies: throat pain or dental pain Card: Reports: chest pain Resp: Denies: dyspnea GI: Denies: abdominal pain, nausea, vomiting or diarrhea : Denies: dysuria Musc: Denies: neck pain or back pain Skin/Breast: Denies: rash Neuro: Denies: headache(s) Psych: Denies: depression Anjum/Lymph: Denies: easy bruising All/Imm: Denies: urticaria PFSH ED PFSH: Medical History Aorta aneurysm COPD (chronic obstructive pulmonary disease) Depression Gastroesophageal reflux disease Surgical History History of cholecystectomy Social History Smoking and tobacco status: current every day smoker cigarettes Packs smoked per day: 0.5 Years cigarettes smoked: 20 Physical Exam Const: COMMON NORMALS: no acute distress, patient oriented x3 and healthy appearing HENMT: COMMON NORMALS: normocephalic and atraumatic HEAD & SCALP: normocephalic and atraumatic Eye: COMMON NORMALS: Equal, round and reactive pupils present and EOMs intact bilaterally PUPIL: Yes Equal, round and reactive pupils present Neck/C-Spine: COMMON NORMALS: full ROM and supple Chest: COMMONS NORMALS: normal inspection of the chest and normal palpation of entire chest wall Resp: COMMON NORMALS: normal respiratory effort, No retractions, No use of accessory muscles and clear to auscultation bilaterally AUSCULTATION: clear to auscultation bilaterally Cardio: COMMON NORMALS: regular rate, regular rhythm and No murmurs present (Cardio) RATE: regular rate RHYTHM: regular rhythm GI: COMMON NORMALS: Normal to inspection, nondistended, normoactive bowel sounds present, Soft to palpation, non-tender and no masses PALPATION: Yes Soft to palpation Extremity: COMMON NORMALS: full ROM NARRATIVE EXTREMITY EXAM: Slight tenderness and bruising in right groin from cath site no palpable thrill no warmth to touch no bleeding Neuro: COMMON NORMALS: patient oriented x3, moves all extremities and no focal motor deficits Psych: COMMON NORMALS: mental status grossly normal, Normal thought process present and cooperative THOUGHT PROCESS: Normal thought process present Skin: COMMON NORMALS: no rashes or lesions noted and no wounds GENERAL SKIN EXAM: no rashes or lesions noted Course Vital Signs: Vital signs: Vital Signs Temperature 97.9 F 04/19/21 01:51 Pulse Rate 97 04/19/21 01:51 Respiratory Rate 18 04/19/21 02:19 Blood Pressure 134/83 04/19/21 01:51 Pulse Oximetry 98 04/19/21 02:19 MDM - Chest Pain MDM Narrative: Medical decision making narrative: Patient presents for chest pains atypical in nature initial repeat troponins are negative patient does have hematuria we will treat with antibiotics for possible UTI and getting follow-up with Dr. Gonzales ultrasound groin showed no pseudoaneurysm he has follow-up with cardiology and is to follow scheduled. Patient is return if worsening. Lab Data: Labs: Lab Results 04/19/21 04/19/21 04/19/21 02:07 02:07 02:07 WBC 13.7 10^3/uL H 10 ^3/uL (4.0-10.0) RBC 5.07 10^6/uL 10^6 /uL (4.1-5.3) Hgb 15.9 g/dL g/dL (11.7-16.6) Hct 47.0 % % (42.0-52.0) MCV 92.7 fl fl (80-94) MCH 31.4 pg pg (28.0-34.0) MCHC 33.8 g/dL g/dL (30.0-36.0) RDW 13.2 % % (12.1-15.1) Plt Count 280 10^3/cmm 10^3 /cmm (130-400) MPV 9.7 fL fL (7.4-10.4) Neut % (Auto) 61.9 % % Lymph % (Auto) 24.3 % % [place] % (Auto) 8.5 % % Eos % (Auto) 4.0 % % Baso % (Auto) 0.9 % % Neut # (Auto) 8.49 10^3/uL H 10 ^3/uL (1.8-7.7) Lymph # (Auto) 3.3 10^3/uL 10^3/ uL (0.8-4.8) [place] # (Auto) 1.2 10^3/uL H 10^ 3/uL (0.2-0.9) Eos # (Auto) 0.6 10^3/uL 10^3/ uL (0.0-0.8) Baso # (Auto) 0.1 10^3/uL 10^3/ uL (0.0-0.1) Nucleated RBC % (a uto) 0 % % Nucleated RBCs # 0.0 /100WBC /100W BC Sodium 142 mmol/L mmol/L (136-145) Potassium 3.8 mmol/L mmol/L (3.5-5.1) Chloride 103 mmol/L mmol/L (98-107) Carbon Dioxide 25 mmol/L mmol/L (22-29) Anion Gap 17.8 (5-19) BUN 18 mg/dL mg/dL (6-20) Creatinine 0.7 mg/dL mg/dL (0.7-1.2) GFR Calculation 124.9 mL/min mL/m in (90-130) Glucose 107 mg/dL mg/dL (65-115) Calculated Osmolal ity 296 mOsm/kg H mOs m/kg (285-295) Calcium 9.0 mg/dL mg/dL (8.5-10.5) Total Bilirubin 0.2 mg/dL mg/dL (0.15-1.2) AST 14 U/L U/L (0-40) ALT 27 U/L U/L (0-41) Alkaline Phosphata se 129 IU/L IU/L (40-130) Troponin T Baselin e 8 ng/L ng/L (0-15) Troponin T 120 Min [place] Troponin T Total Protein 7.0 g/dL g/dL (6.6-8.7) Albumin 4.7 g/dL g/dL (3.5-5.2) Globulin 2.3 g/dL g/dL (1.3-4.6) Urine Color Urine Appearance Urine pH Ur Specific Gravit y Urine Protein Urine Glucose (UA) Urine Ketones Urine Blood Urine Nitrate Urine Bilirubin Urine Urobilinogen Ur Leukocyte Aure ase Urine RBC Urine WBC Ur Squamous Epith Cells Amorphous Sediment Urine Bacteria Urine Mucus 04/19/21 04/19/21 04:10 04:42 WBC RBC Hgb Hct MCV MCH MCHC RDW Plt Count MPV Neut % (Auto) Lymph % (Auto) [place] % (Auto) Eos % (Auto) Baso % (Auto) Neut # (Auto) Lymph # (Auto) [place] # (Auto) Eos # (Auto) Baso # (Auto) Nucleated RBC % (a uto) Nucleated RBCs # Sodium Potassium Chloride Carbon Dioxide Anion Gap BUN Creatinine GFR Calculation Glucose Calculated Osmolal ity Calcium Total Bilirubin AST ALT Alkaline Phosphata se Troponin T Baselin e Troponin T 120 Min [place] 8.53 ng/L ng/L (0-15) [place] Troponin T 0.53 ABS# ABS# (0-10) Total Protein Albumin Globulin Urine Color Brown (Yellow) Urine Appearance Cloudy (CLEAR) Urine pH 5 (5-7) Ur Specific Gravit y 1.020 (1.005-1.030) Urine Protein 1+ H (Negative) Urine Glucose (UA) Norm (Normal) Urine Ketones Negative (Negative) Urine Blood 3+ H (Negative) Urine Nitrate Negative (Negative) Urine Bilirubin 1+ H (Negative) Urine Urobilinogen 1 mg/dL H mg/dL (Negative) Ur Leukocyte Aure ase Trace H (Negative) Urine RBC Too numerous to c nt /hpf H /hpf (0-2) Urine WBC 0-4 /hpf H /hpf (0-5) Ur Squamous Epith Cells 0-4 /hpf H /hpf (0-5) Amorphous Sediment Not Reportable Urine Bacteria Trace /hpf /hpf (NONE) Urine Mucus Trace /hpf /hpf EKG Data^: EKG 1: Attestation: I personally reviewed and interpreted this EKG as follows: EKG interpretation date: 04/19/21 EKG interpretation time: 02:07 Interpretation: nsr hr [address] or t wave abnormalities qrs 99 qtc 363 Discharge Plan Discharge Patient Disposition: Home Clinical Impression: Chest pain, Right groin pain, Hematuria Condition: Stable Prescriptions: New cephalexin 500 mg capsule 500 mg PO TID 7 Days Qty: 21 RF: 0 No Action nitroglycerin 0.4 mg tablet, sublingual 0.4 mg sublingual Q5M PRN (Reason: Chest Pain) RF: 0 gabapentin 600 mg Tablet 600 mg PO BID RF: 0 atorvastatin 40 mg Tablet 80 mg PO BEDTIME Qty: 30 RF: 3 clopidogrel 75 mg Tablet 75 mg PO DAILY Qty: 90 RF: 4 aspirin 81 mg Tablet,Delayed Release (Dr/Ec) 81 mg PO DAILY Qty: 30 RF: 3 Discharge Orders: Discharge ED (Routine); Ordered 04/19/21 Ordered By: Oscar Mejia Referrals: Anna Roach MD [Primary Care Provider] - Discharge Diet: Advance as tolerated Discharge Activity: Resume usual activity Patient Instructions: Chest Pain (ED) Coding Level of Care Code ED Fireworks Display Specialist for Chg Fwd Exam Comprehensive
[2021-04-19 02:10] LABS: Basophils # 0.1 10^3/uL (0.0-0.1); Basophils % 0.9 %; Eosinophils # 0.6 10^3/uL (0.0-0.8); Hemoglobin 15.9 g/dL (11.7-16.6); Lymphocytes # 3.3 10^3/uL (0.8-4.8); Lymphocytes % 24.3 %; Mean Corpuscular HGB Conc 33.8 g/dL (30.0-36.0); Mean Corpuscular Hemoglobin 31.4 pg (28.0-34.0); Mean Corpuscular Volume 92.7 fl (80-94); Mean Platelet Volume 9.7 fL (7.4-10.4); Monocytes # 1.2 10^3/uL (0.2-0.9); Monocytes % 8.5 %; Neutrophils # 8.49 10^3/uL (1.8-7.7); Neutrophils % 61.9 %; Nucleated Red Blood Cells % 0 %; Platelet Count 280 10^3/cmm (130-400); Red Blood Count 5.07 10^6/uL (4.1-5.3); Red Cell Distribution Width 13.2 % (12.1-15.1); White Blood Count 13.7 10^3/uL (4.0-10.0)
--- NOTE | 2021-04-19 02:15 | PC.NURSE ---
pt arrival with c/o right side groin swelling, bruising, and pain at access site for stent placement. reports intermittent chest pain for months. states stabbing pain. reports running out of NGT. speech clear, sentences complete. placed on tele. educated need for urine, states only urinating about every 6 hours and he went before leaving his house.
[2021-04-19 02:19] VITALS: RESP 18; O2SAT 98
[2021-04-19] MEDS: morphine 4 mg/mL SDV 1 mL IVP (02:19)
[2021-04-19] MEDS: ondansetron 2 mg/ML SDV 2 mL 4 MG IVP (02:20)
[2021-04-19 02:31] LABS: Alanine Aminotransferase 27 U/L (0-41); Albumin Level 4.7 g/dL (3.5-5.2); Alkaline Phosphatase 129 IU/L (40-130); Anion Gap 17.8 (5-19); Aspartate Amino Transferase 14 U/L (0-40); Blood Urea Nitrogen 18 mg/dL (6-20); Carbon Dioxide 25 mmol/L (22-29); Chloride 103 mmol/L (98-107); Globulin 2.3 g/dL (1.3-4.6); Glomerular Filtration Rate 124.9 mL/min (90-130); Glucose 107 mg/dL (65-115); Osmolality Calculated 296 mOsm/kg (285-295); Potassium 3.8 mmol/L (3.5-5.1); Sodium 142 mmol/L (136-145); Total Bilirubin 0.2 mg/dL (0.15-1.2)
[2021-04-19 02:32] LABS: Troponin(5th) Baseline 8 ng/L (0-15)
--- NOTE | 2021-04-19 03:57 | ECG_ITS ---
[facility] Test Date: 2021-04-19 Pat Name: Jovanny Rico Department: Room: Gender: Male Residential Sales Executive: : 1980 Requested By: Oscar Mejia Order Number: [id number] Jody MD: Missy Amaya M.D. Measurements Intervals [place] Rate: 75 P: 13 [place]: 155 QRS: 31 QRSD: 104 T: 28 QT: 355 QTc: 397 Interpretive Statements SINUS RHYTHM MODERATE T-WAVE ABNORMALITY, CONSIDER ANTEROLATERAL ISCHEMIA [-0.1+ mV T-WAVE IN V3-V6] Compared to ECG 04/19/2021 02:07:47 No significant changes Electronically Signed On 04-21-2021 19:32:25 HEAD NURSE by Missy Amaya M.D. [email or web address].[employer]/store/[id number]
[2021-04-19 04:41] LABS: Troponin 5 2HR 8.53 ng/L (0-15); Troponin 5 2HR Delta 0.53 ABS# (0-10)
[2021-04-19 04:56] LABS: Add Urine Microscopic? YES; Bilirubin Urine 1+ (Negative); Blood Urine 3+ (Negative); Glucose Urine UA Norm (Normal); Ketones Urine Negative (Negative); Leukocyte Esterase Urine Trace (Negative); Nitrate Urine Negative (Negative); Protein Urine 1+ (Negative); Urine Appearance Cloudy (CLEAR); Urine Color Brown (Yellow); Urobilinogen Urine 1 mg/dL (Negative); pH Urine 5 (5-7)
[2021-04-19 04:57] LABS: Add Urine Culture? Yes; Bacteria Urine TRACE /hpf; Mucus Urine TRACE /hpf; RBC Urine TOO NUMEROUS TO CNT /hpf (0-2); Squamous Epithelial Cell Urine 0-4 /hpf (0-5); WBC Urine 0-4 /hpf (0-5)
[2021-04-19 05:09] VITALS: BP 128/90; PULSE 89; RESP 15; TEMP 36.8; O2SAT 98
--- NOTE | 2021-04-19 11:30 | DCPLANNER ---
Addendum entered by Hoda Cox 04/29/21 11:50: Patient had a follow up appointment scheduled for 04.27.[address] Gonzales - patient did attend appointment. Original Note: wireless construction manager had message to schedule a follow up appointment for patient with Dr. Gonzales. wireless construction manager emailed patients information to Nate Avitia and Alessandra in the office of Dr. Gonzales. Patients information will be printed and reviewed. Clinic will call patient with appointment information.
== END 2021-04-19 05:09 | disposition home or self-care (01) ==
PROVIDERS: Emergency Provider Emergency Medicine; PCP Family Medicine
DX: R07.9 Chest pain, unspecified (principal); R31.9 Hematuria, unspecified; R10.31 Right lower quadrant pain; Z79.02 Long term (current) use of antithrombotics/antiplatelets; Z79.82 Long term (current) use of aspirin; J44.9 Chronic obstructive pulmonary disease, unspecified; F17.210 Nicotine dependence, cigarettes, uncomplicated
CPT/HCPCS: 36415; 71045; 80053; 81001; 84484; 85025; 87086; 93005; 93926; 96374; 96375; 99284; J2270; J2405

== ENCOUNTER → 2021-04-28 11:28 | Outpatient (BNVA) | payer OTHER, SELFPAY | PROVIDERS: PCP Family Medicine; Visit Provider Urology | DX: R31.0 Gross hematuria (principal) | CPT/HCPCS: 87086; 88112 ==

== ENCOUNTER 2021-04-30 22:14 | Emergency (ER) | payer OTHER, SELFPAY ==
[2021-04-30 22:24] VITALS: BP 134/84; PULSE 72; RESP 16; TEMP 36.5; O2SAT 97
--- NOTE | 2021-04-30 22:47 | ED_ITS ---
HPI - Chest Pain General: Chief Complaint: Chest Pain Stated Complaint: cp, abd pain PFSH ED PFSH: Medical History (Updated 04/28/21 @ 09:06 by ELYSE Rosario) Aorta aneurysm Atherosclerosis of coronary artery COPD (chronic obstructive pulmonary disease) Depression Gastroesophageal reflux disease Presence of stent in LAD coronary artery Surgical History History of cholecystectomy Family History Father Heart disease Alcoholic Lung disease Mother Healthy adult Social History Smoking and tobacco status: current every day smoker cigarettes Packs smoked per day: 0.5 Years cigarettes smoked: 20 Alcohol intake: current Alcohol intake frequency: holidays/special occasions only Marital status: Current occupational status: unemployed History of recent travel: No Course Vital Signs: Vital signs: Vital Signs Temperature 97.7 F 04/30/21 22:24 Pulse Rate 72 04/30/21 22:24 Respiratory Rate 16 04/30/21 22:24 Blood Pressure 134/84 04/30/21 22:24 Pulse Oximetry 97 04/30/21 22:24 Discharge Plan Discharge Condition: Stable Prescriptions: No Action nitroglycerin 0.4 mg tablet, sublingual 0.4 mg sublingual Q5M PRN (Reason: Chest Pain) 0RF Rx Instructions: do not exceed 3 doses per episode omeprazole 40 mg capsule,delayed release(DR/EC) 40 mg PO DAILY 0RF metoprolol tartrate 25 mg tablet 25 mg PO DAILY 0RF isosorbide mononitrate 30 mg tablet extended release 24 hr 30 mg PO DAILY Qty: 90 3RF gabapentin 600 mg Tablet 600 mg PO BID 0RF atorvastatin 40 mg Tablet 80 mg PO BEDTIME Qty: 30 3RF clopidogrel 75 mg Tablet 75 mg PO DAILY Qty: 90 4RF aspirin 81 mg Tablet,Delayed Release (Dr/Ec) 81 mg PO DAILY Qty: 30 3RF Referrals: Anna Roach MD [Primary Care Provider] - Coding Level of Care Code ED Senior Validation Engineer for Clair Mathew
--- NOTE | 2021-04-30 22:47 | ECG_ITS ---
[facility] Test Date: 2021-04-30 Pat Name: Jovanny Rico Department: Room: Gender: Male Research Director: : 1980 Requested By: Reuben Marte Order Number: [id number] Reading MD: CHALINO CHEN Measurements Intervals [place] Rate: 75 P: 19 [place]: 160 QRS: 52 QRSD: 103 T: 32 QT: 332 QTc: 371 Interpretive Statements SINUS RHYTHM MODERATE T-WAVE ABNORMALITY, CONSIDER ANTEROLATERAL ISCHEMIA [-0.1+ mV T-WAVE IN V3-V6] Compared to ECG 04/19/2021 04:08:50 No significant changes Electronically Signed On 05-01-2021 19:17:00 DIE CAST OPERATOR by CHALINO CHEN [id number] f
--- NOTE | 2021-04-30 22:47 | XRR_ITS ---
PROCEDURE INFORMATION: Exam: XR Chest Exam date and time: 04/30/2021 10:47 PM Age: 41 years old Clinical indication: Pain; Chest pressure; Prior surgery; Surgery date: <1 month; Surgery type: Stent; Additional info: Chest pain TECHNIQUE: Imaging protocol: XR of the chest. Views: 1 view. COMPARISON: CR (CHEST, ) 04/19/2021 2:19 AM FINDINGS: Lungs: Lungs are clear. Pleural spaces: There is no pleural effusion or pneumothorax. Heart/Mediastinum: Cardiomediastinal contours are unremarkable. Bones/joints: Bones are unremarkable. XR/XR chest 1V portable [id number] IMPRESSION: No acute findings.
[2021-04-30 23:56] LABS: Basophils # 0.1 10^3/uL (0.0-0.1); Basophils % 0.9 %; Eosinophils # 0.4 10^3/uL (0.0-0.8); Hematocrit 49.7 % (42.0-52.0); Hemoglobin 16.5 g/dL (11.7-16.6); Lymphocytes % 32.2 %; Mean Corpuscular HGB Conc 33.2 g/dL (30.0-36.0); Mean Corpuscular Hemoglobin 31.1 pg (28.0-34.0); Mean Corpuscular Volume 93.8 fl (80-94); Mean Platelet Volume 9.7 fL (7.4-10.4); Monocytes # 0.7 10^3/uL (0.2-0.9); Monocytes % 7.3 %; Neutrophils # 5.18 10^3/uL (1.8-7.7); Neutrophils % 55.1 %; Nucleated Red Blood Cells % 0 %; Platelet Count 267 10^3/cmm (130-400); Red Cell Distribution Width 12.9 % (12.1-15.1); White Blood Count 9.4 10^3/uL (4.0-10.0)
[2021-05-01 00:11] VITALS: BP 141/82; PULSE 73; RESP 15; TEMP 36.6; O2SAT 94
[2021-05-01 00:17] LABS: Troponin(5th) Baseline 8 ng/L (0-15)
--- NOTE | 2021-05-01 00:17 | PC.NURSE ---
patient received with c/o chest pain for months. states reent stent placement. reports N/V/D for months with 2 episodes today. states has kidney stone on the right and recently seen urology. reports lacey had a sharp pain doen left arm that brought him to ER. speech clear, sentences complete. tele in place.
[2021-05-01 00:18] LABS: Alanine Aminotransferase 32 U/L (0-41); Albumin Level 4.8 g/dL (3.5-5.2); Alkaline Phosphatase 126 IU/L (40-130); Anion Gap 18.4 (5-19); Aspartate Amino Transferase 17 U/L (0-40); Blood Urea Nitrogen 13 mg/dL (6-20); Calcium 10.4 mg/dL (8.5-10.5); Carbon Dioxide 24 mmol/L (22-29); Chloride 101 mmol/L (98-107); Globulin 2.4 g/dL (1.3-4.6); Glomerular Filtration Rate 149.2 mL/min (90-130); Glucose 77 mg/dL (65-115); Lipase 138 U/L (13-60); Osmolality Calculated 287 mOsm/kg (285-295); Potassium 4.4 mmol/L (3.5-5.1); Sodium 139 mmol/L (136-145); Total Bilirubin 0.2 mg/dL (0.15-1.2); Total Protein 7.2 g/dL (6.6-8.7)
--- NOTE | 2021-05-01 00:47 | ECG_ITS ---
[facility] Test Date: 2021-04-30 Pat Name: Jovanny Rico Department: Room: Gender: Male Roof Bolter: : 1980 Requested By: Reuben Marte Order Number: [id number] Reading MD: CHALINO CHEN Measurements Intervals [place] Rate: 75 P: 19 [place]: 160 QRS: 52 QRSD: 103 T: 32 QT: 332 QTc: 371 Interpretive Statements SINUS RHYTHM MODERATE T-WAVE ABNORMALITY, CONSIDER ANTEROLATERAL ISCHEMIA [-0.1+ mV T-WAVE IN V3-V6] Compared to ECG 04/19/2021 04:08:50 No significant changes Electronically Signed On 05-01-2021 19:19:50 INDUSTRIAL GAS PRODUCTION OPERATOR by CHALINO CHEN [id number]
--- NOTE | 2021-05-01 00:54 | ED_ITS ---
HPI - Chest Pain General: Chief Complaint: Chest Pain Stated Complaint: cp abd pain Time Seen by Provider: 05/01/21 00:12 Source: patient History of Present Illness: 41-year-old male with a history of coronary disease and recent stent placement to his LAD. He presents with chest discomfort, since that procedure. He says it happens on and off. Not neces sarily related to activity. He says the pain radiates to his left arm causing it to go numb. He also has chronic neck and back pain. He also complains of chronic right lower quadrant pain as well. He has a history of Eli's esophagus, and has thrown up 3 times in the last 24 hours or so. He notes mild shortness of breath, mild cough. No fever. 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 past history: coronary artery disease and other Onset (ago): week(s) (2) Timing of current episode: episodic Prior episodes: Yes Pain location: substernal and left chest Pain radiation: left arm Severity: moderate Quality: tightness, aching and sharp Relieving factors: nothing Exacerbating factors: nothing Context: recent surgery Associated symptoms: Reports abdominal pain (Right-sided), dyspnea, nausea, vomiting and other; Deny fever(s) or palpitations Review of Systems Const: Denies: fever(s) ENMT: Reports: throat pain Card: Denies: palpitations Resp: Reports: dyspnea and non-productive cough; Denies: productive cough GI: Reports: abdominal pain (Right-sided), nausea, vomiting and diarrhea Skin/Breast: Denies: rash PFSH ED PFSH: Medical History (Updated 05/01/21 @ 03:08 by Earl Michael DO) Aorta aneurysm Atherosclerosis of coronary artery COPD (chronic obstructive pulmonary disease) Depression Gastroesophageal reflux disease Presence of stent in LAD coronary artery Surgical History History of cholecystectomy Family History Father Heart disease Alcoholic Lung disease Mother Healthy adult Social History Smoking and tobacco status: current every day smoker cigarettes Packs smoked per day: 0.5 Years cigarettes smoked: 20 Alcohol intake: current Alcohol intake frequency: holidays/special occasions only Marital status: Current occupational status: unemployed History of recent travel: No Physical Exam Const: GENERAL APPEARANCE: cooperative HENMT: COMMON NORMALS: normocephalic, atraumatic and Normal external nose present HEAD & SCALP: normocephalic and atraumatic NOSE: Normal external nose present Eye: COMMON NORMALS: Equal, round and reactive pupils present and EOMs intact bilaterally PUPIL: Yes Equal, round and reactive pupils present Chest: COMMONS NORMALS: normal inspection of the chest Resp: COMMON NORMALS: normal respiratory effort, No use of accessory muscles and clear to auscultation bilaterally AUSCULTATION: clear to auscultation bilaterally Cardio: COMMON NORMALS: regular rate and regular rhythm RATE: regular rate RHYTHM: regular rhythm GI: COMMON NORMALS: Normal to inspection, nondistended, normoactive bowel sounds present PALPATION: Yes Tenderness to palpation present (GI) (Diffuse) and Yes Guarding due to palpation present (GI) Psych: COMMON NORMALS: cooperative Course Vital Signs: Vital signs: Vital Signs Temperature 98.1 F 05/01/21 03:18 Pulse Rate 72 05/01/21 03:18 Respiratory Rate 17 05/01/21 03:18 Blood Pressure 142/109 05/01/21 03:18 Pulse Oximetry 93 05/01/21 03:18 MDM - Chest Pain Medical Decision Making 41-year-old gentleman with multiple medical problems. These include coronary disease status post recent stent placement, Eli's esophagus, chronic belly pain, renal colic from a large intrarenal right-sided calculus. He presents with belly pain and vomiting as well as chest discomfort. His EKG showed no acute ST changes. His troponin remained normal at 2 hours for a nonsignificant delta. CT of the belly showed a 2 mm left-sided UVJ stone without significant hydronephrosis. It again shows a large calculus in the inferior pole of the right kidney no other acute findings. His rapid Covid is negative. He will be allowed home. He will be given treatment for breakthrough reflux with Carafate, etc. He knows to return for worsening symptoms. Lab Data : 04/30/21 23:41 04/30/21 23:41 Radiology Impressions Chest X-Ray 04/30/21 22:47 IMPRESSION: No acute findings. Abdomen/Pelvis CT 05/01/21 01:29 IMPRESSION: 1. 2 mm stone in the distal left ureter at the ureterovesical junction. No hydronephrosis. 2. Tiny nonobstructive stones in the left kidney. Large (20 mm) nonobstructive stone in the right kidney. 3. Incidental findings above. Laboratory Results WBC 9.4 10^3/uL (4.0-10.0) 04/30/21 23:41 RBC 5.30 10^6/uL (4.1-5.3) 04/30/21 23:41 Hgb 16.5 g/dL (11.7-16.6) 04/30/21 23:41 Hct 49.7 % (42.0-52.0) 04/30/21 23:41 MCV 93.8 fl (80-94) 04/30/21 23:41 MCH 31.1 pg (28.0-34.0) 04/30/21 23:41 MCHC 33.2 g/dL (30.0-36.0) 04/30/21 23:41 RDW 12.9 % (12.1-15.1) 04/30/21 23:41 Plt Count 267 10^3/cmm (130-400) 04/30/21 23:41 MPV 9.7 fL (7.4-10.4) 04/30/21 23:41 Neut % (Auto) 55.1 % 04/30/21 23:41 Lymph % (Auto) 32.2 % 04/30/21 23:41 [place] % (Auto) 7.3 % 04/30/21 23:41 Eos % (Auto) 4.0 % 04/30/21 23:41 Baso % (Auto) 0.9 % 04/30/21 23:41 Neut # (Auto) 5.18 10^3/uL (1.8-7.7) 04/30/21 23:41 Lymph # (Auto) 3.0 10^3/uL (0.8-4.8) 04/30/21 23:41 [place] # (Auto) 0.7 10^3/uL (0.2-0.9) 04/30/21 23:41 Eos # (Auto) 0.4 10^3/uL (0.0-0.8) 04/30/21 23:41 Baso # (Auto) 0.1 10^3/uL (0.0-0.1) 04/30/21 23:41 Nucleated RBC % (auto) 0 % 04/30/21 23:41 Nucleated RBCs # 0.0 /100WBC 04/30/21 23:41 Sodium 139 mmol/L (136-145) 04/30/21 23:41 Potassium 4.4 mmol/L (3.5-5.1) 04/30/21 23:41 Chloride 101 mmol/L (98-107) 04/30/21 23:41 Carbon Dioxide 24 mmol/L (22-29) 04/30/21 23:41 Anion Gap 18.4 (5-19) 04/30/21 23:41 BUN 13 mg/dL (6-20) 04/30/21 23:41 Creatinine 0.6 mg/dL (0.7-1.2) L 04/30/21 23:41 GFR Calculation 149.2 mL/min (90-130) H 04/30/21 23:41 Glucose 77 mg/dL (65-115) 04/30/21 23:41 Calculated Osmolality 287 mOsm/kg (285-295) 04/30/21 23:41 Calcium 10.4 mg/dL (8.5-10.5) 04/30/21 23:41 Total Bilirubin 0.2 mg/dL (0.15-1.2) 04/30/21 23:41 AST 17 U/L (0-40) 04/30/21 23:41 ALT 32 U/L (0-41) 04/30/21 23:41 Alkaline Phosphatase 126 IU/L (40-130) 04/30/21 23:41 Troponin T Baseline 8 ng/L (0-15) 04/30/21 23:41 Troponin T 120 Minute 7.10 ng/L (0-15) 05/01/21 01:51 Delta Troponin T Not Reportable 05/01/21 01:51 Total Protein 7.2 g/dL (6.6-8.7) 04/30/21 23:41 Albumin 4.8 g/dL (3.5-5.2) 04/30/21 23:41 Globulin 2.4 g/dL (1.3-4.6) 04/30/21 23:41 Lipase 138 U/L (13-60) H 04/30/21 23:41 SARS-CoV-2 Ag (Rapid) Negative (Negative) 05/01/21 01:51 Discharge Plan Discharge Patient Disposition: Home Clinical Impression: Chest pain, Ureterolithiasis, Eli's esophagus Condition: Stable Prescriptions: New Zofran 4 mg tablet 4 mg PO Q6H PRN (Reason: nausea and vomiting) Qty: 10 0RF Percocet 7.5-325 mg tablet 1 tab PO Q6H PRN (Reason: pain) Qty: 7 0RF Flomax 0.4 mg capsule 0.4 mg PO DAILY Qty: 7 0RF Carafate 1 gram tablet 1 g PO TID 28 Days Qty: 84 0RF No Action nitroglycerin 0.4 mg tablet, sublingual 0.4 mg sublingual Q5M PRN (Reason: Chest Pain) 0RF Rx Instructions: do not exceed 3 doses per episode omeprazole 40 mg capsule,delayed release(DR/EC) 40 mg PO DAILY 0RF metoprolol tartrate 25 mg tablet 25 mg PO DAILY 0RF isosorbide mononitrate 30 mg tablet extended release 24 hr 30 mg PO DAILY Qty: 90 3RF gabapentin 600 mg Tablet 600 mg PO BID 0RF atorvastatin 40 mg Tablet 80 mg PO BEDTIME Qty: 30 3RF clopidogrel 75 mg Tablet 75 mg PO DAILY Qty: 90 4RF aspirin 81 mg Tablet,Delayed Release (Dr/Ec) 81 mg PO DAILY Qty: 30 3RF Discharge Orders: Discharge ED (Routine); Ordered 05/01/21 Ordered By: Earl Michael Referrals: Missy Amaya MD [Physician] - 4-7 days Anna Roach MD [Primary Care Provider] - 4-7 days Patient Instructions: Opioid Safety Activity Restrictions/Additional Instructions: Return for worsening pain despite treatment, vomiting liquids or medications despite treatment, fever greater than 100, any other concerning symptoms. Call your doctors on Sunday morning, as they will likely want to see you this week. Medications as directed. Coding Level of Care Code ED Manufacturing Advisor for Clair Fwd Exam Comprehensive
--- NOTE | 2021-05-01 01:29 | CTR_ITS ---
PROCEDURE INFORMATION: Exam: CT Abdomen And Pelvis With Contrast Exam date and time: 05/01/2021 1:29 AM Age: 41 years old Clinical indication: Abdominal pain; Localized; Right lower quadrant (rlq); Prior surgery; Surgery date: 6+ months; Surgery type: Gb; Additional info: Rlq pain TECHNIQUE: Imaging protocol: Computed tomography of the abdomen and pelvis with contrast. Radiation optimization: All CT scans at this facility use at least one of these dose optimization techniques: automated exposure control; mA and/or kV adjustment per patient size (includes targeted exams where dose is matched to clinical indication); or iterative reconstruction. Contrast material: OMNI 300; Contrast volume: 95 ml; Contrast route: INTRAVENOUS (IV); COMPARISON: CT abdomen pelvis w con* [id number] 03/28/2021 4:33 AM RADIATION DOSE METRICS: Total DLP (mGy-cm): 1811.63 FINDINGS: Lungs: There is subsegmental atelectasis in the lung bases. Liver: There is diffuse low-attenuation of the liver relative to the spleen consistent with fatty infiltration. There is no focal liver abnormality. Gallbladder and bile ducts: The gallbladder is absent. There is no intrahepatic or extrahepatic bile duct dilation. Pancreas: The pancreas is unremarkable. Spleen: The spleen is unremarkable. Adrenal glands: The adrenal glands are unremarkable. Kidneys and ureters: 20 mm nonobstructive stone at the lower pole of the right kidney is unchanged. There is no hydronephrosis or ureteral dilation. The left kidney is morphologically normal. There is no hydronephrosis. There are tiny punctate (1-2 mm) stones at the lower pole of the left kidney. The left ureter is nondilated. There is a 2 mm stone at the left ureterovesical junction. Stomach and bowel: The stomach is decompressed, preventing meaningful evaluation of wall thickness. The small bowel is nondilated. The colon is unremarkable. Appendix: The appendix is normal. Intraperitoneal space: There is no free air or significant intraperitoneal free fluid. Vasculature: There is mild aortic atherosclerotic disease. The portal, splenic and superior mesenteric veins are patent. Lymph nodes: There is no lymphadenopathy in the retroperitoneum, mesentery, pelvis or inguinal regions. Urinary bladder: The urinary bladder is unremarkable. Reproductive: The prostate and seminal vesicles are unremarkable. Bones/joints: Nondisplaced right L5 pars defect. No spondylolisthesis. There is mild degenerative disease in the lumbar spine. The pelvis and proximal femora are intact. Soft tissues: The abdominal wall is intact. CT/CT abdomen pelvis w con* [id number] IMPRESSION: 1. 2 mm stone in the distal left ureter at the ureterovesical junction. No hydronephrosis. 2. Tiny nonobstructive stones in the left kidney. Large (20 mm) nonobstructive stone in the right kidney. 3. Incidental findings above.
[2021-05-01 01:52] VITALS: BP 160/94; PULSE 87; RESP 16; TEMP 36.8; O2SAT 95
[2021-05-01] MEDS: iohexol 300 mg/mL 100 mL Btl IV (01:56)
[2021-05-01 02:33] LABS: SARS Covid-2 Antigen Negative (Negative)
[2021-05-01 03:18] VITALS: BP 142/109; PULSE 72; RESP 17; TEMP 36.7; O2SAT 93
== END 2021-05-01 03:27 | disposition home or self-care (01) ==
PROVIDERS: Emergency Medicine; Emergency Provider Emergency Medicine; PCP Family Medicine
DX: R07.9 Chest pain, unspecified (principal); N20.1 Calculus of ureter; K22.70 Barrett's esophagus without dysplasia; Z79.02 Long term (current) use of antithrombotics/antiplatelets; Z79.82 Long term (current) use of aspirin; J44.9 Chronic obstructive pulmonary disease, unspecified; I25.10 Atherosclerotic heart disease of native coronary artery without angina pectoris; F17.210 Nicotine dependence, cigarettes, uncomplicated; Z20.822 Contact with and (suspected) exposure to COVID-19
CPT/HCPCS: 36415; 71045; 74177; 80053; 83690; 84484; 85025; 87426; 93005; 99284; Q9967

== ENCOUNTER 2021-05-07 20:33 | Emergency (ER) | payer OTHER, SELFPAY ==
[2021-05-07 21:08] VITALS: BP 119/83; PULSE 92; RESP 18; TEMP 36.9; O2SAT 96; BMI 27.1
--- NOTE | 2021-05-07 21:25 | XRR_ITS ---
PROCEDURE INFORMATION: Exam: XR Chest Exam date and time: 05/07/2021 9:25 PM Age: 41 years old Clinical indication: Pain; Chest pressure; Prior surgery; Surgery date: 6+ months; Surgery type: Stent; Additional info: Chest pain TECHNIQUE: Imaging protocol: XR of the chest. Views: 1 view. COMPARISON: CR XR chest 1V portable [id number] 05/01/2021 12:44 AM FINDINGS: Lungs: Left lower lobe atelectasis versus infiltrate. Pleural spaces: Unremarkable. No pleural effusion. No pneumothorax. Heart/Mediastinum: Unremarkable. No cardiomegaly. Bones/joints: Unremarkable. XR/XR chest 1V portable [id number] IMPRESSION: Left lower lobe atelectasis versus infiltrate.
--- NOTE | 2021-05-07 21:25 | ECG_ITS ---
[facility] Test Date: 2021-05-07 Pat Name: Jovanny Rico Department: Room: Gender: Male Sterile Technician: : 1980 Requested By: Randell Perez Order Number: [id number] Jody MD: Missy Amaya M.D. Measurements Intervals [place] Rate: 80 P: 17 GA: 141 QRS: 48 QRSD: 102 T: 32 QT: 328 QTc: 379 Interpretive Statements SINUS RHYTHM WITH MARKED SINUS ARRHYTHMIA MODERATE T-WAVE ABNORMALITY, CONSIDER ANTERIOR ISCHEMIA [-0.1+ mV T-WAVE IN V3/V4] Compared to ECG 04/30/2021 22:24:10 No significant changes Electronically Signed On 05-08-2021 16:59:21 SPRINKLER FITTER by Missy Amaay M.D. [id number]
[2021-05-07 23:05] LABS: Basophils # 0.1 10^3/uL (0.0-0.1); Basophils % 0.9 %; Eosinophils # 0.5 10^3/uL (0.0-0.8); Eosinophils % 5.3 %; Hematocrit 52.2 % (42.0-52.0); Lymphocytes # 3.5 10^3/uL (0.8-4.8); Mean Corpuscular HGB Conc 32.6 g/dL (30.0-36.0); Mean Corpuscular Hemoglobin 31.3 pg (28.0-34.0); Mean Platelet Volume 9.8 fL (7.4-10.4); Monocytes # 1.1 10^3/uL (0.2-0.9); Monocytes % 10.7 %; Neutrophils # 4.95 10^3/uL (1.8-7.7); Neutrophils % 48.7 %; Nucleated Red Blood Cells % 0 %; Platelet Count 276 10^3/cmm (130-400); Red Blood Count 5.44 10^6/uL (4.1-5.3); Red Cell Distribution Width 13.3 % (12.1-15.1); White Blood Count 10.2 10^3/uL (4.0-10.0)
--- NOTE | 2021-05-07 23:25 | ECG_ITS ---
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 Measurements Intervals [place] Rate: 92 P: 17 MD: 156 QRS: 47 QRSD: 91 T: 27 QT: 289 QTc: 358 Interpretive Statements SINUS RHYTHM WITH SINUS ARRHYTHMIA MODERATE T-WAVE ABNORMALITY, CONSIDER ANTERIOR ISCHEMIA [-0.1+ mV T-WAVE IN V3/V4] Compared to ECG 04/30/2021 22:24:10 No significant changes Electronically Signed On 05-08-2021 17:05:24 MEDICAL ASSEMBLY by Missy Amaya M.D. [id number]
[2021-05-07 23:28] LABS: Anion Gap 18.1 (5-19); Blood Urea Nitrogen 10 mg/dL (6-20); Calcium 9.7 mg/dL (8.5-10.5); Carbon Dioxide 22 mmol/L (22-29); Chloride 105 mmol/L (98-107); Glomerular Filtration Rate 149.2 mL/min (90-130); Glucose 94 mg/dL (65-115); Osmolality Calculated 291 mOsm/kg (285-295); Potassium 4.1 mmol/L (3.5-5.1); Sodium 141 mmol/L (136-145)
[2021-05-07 23:32] LABS: Troponin(5th) Baseline 8 ng/L (0-15)
== END 2021-05-08 01:34 ==
LOC: ER 20:36
PROVIDERS: Nurse Practitioner Family; Emergency Provider Family Medicine; PCP Family Medicine
DX: Z53.21 Procedure and treatment not carried out due to patient leaving prior to being seen by health care provider (principal)
CPT/HCPCS: 71045; 80048; 84484; 85025; 93005; 99283

== ENCOUNTER 2021-05-22 21:23 | Emergency (ER) | payer OTHER, SELFPAY ==
[2021-05-22 21:29] VITALS: BP 153/97; PULSE 98; RESP 18; TEMP 36.9; O2SAT 93; BMI 29.1
--- NOTE | 2021-05-22 21:40 | ECG_ITS ---
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 Measurements Intervals [place] Rate: 97 P: 53 CT: 180 QRS: 51 QRSD: 83 T: 42 QT: 314 QTc: 400 Interpretive Statements SINUS RHYTHM NONSPECIFIC T-WAVE ABNORMALITY Compared to ECG 05/07/2021 22:25:47 Sinus arrhythmia no longer present Possible ischemia no longer present T-wave abnormality still present Electronically Signed On 05-23-2021 12:12:55 BOAT DISPATCHER by Spenser Carrillo M.D. [id number] f
--- NOTE | 2021-05-22 21:40 | XRR_ITS ---
PROCEDURE INFORMATION: Exam: XR Chest Exam date and time: 05/22/2021 9:40 PM Age: 41 years old Clinical indication: Pain; Chest pressure; Prior surgery; Surgery date: 6+ months; Surgery type: Stent; Additional info: Chest pain TECHNIQUE: Imaging protocol: XR of the chest. Views: 1 view. COMPARISON: CR (CHEST, ) 05/07/2021 11:04 PM FINDINGS: Lungs: No CHF/pulmonary edema. Mild probable atelectasis or parenchymal scarring in the left lower lung, similar to the prior exam. Visible lungs otherwise appear essentially clear. Pleural spaces: No visible pneumothorax. No definite pleural fluid. Heart/Mediastinum: Heart size is within normal limits. Diaphragm: There is some elevation of the left hemidiaphragm, similar to the prior exam. Bones/joints: No significant acute finding. XR/XR chest 1V portable [id number] IMPRESSION: 1. Mild probable atelectasis or parenchymal scarring in the left lower lung, similar to the prior exam. 2. No definite CHF or pneumonia. 3. Other findings discussed above.
--- NOTE | 2021-05-22 21:41 | W.ED.CHESTPA ---
Documented by User: Andrew Mckeon DO 05/22/21 23:02 HPI - Chest Pain General: Chief Complaint: Chest Pain Stated Complaint: Chest Pain has Stent Time Seen by Provider: 05/22/21 21:34 Source: patient Mode of arrival: ambulatory Limitations: no limitations History of Present Illness: This patient presents to the emergency department because of chest pain. He states the chest pain is in his mid chest and is similar to that which she is experienced previously. He says that the pain began at rest while he was watching television approximately 3 hours prior to arrival. He states it seems to worsen with deep breaths and certain movements. He denies any cough fever chills etc. He had coronary angiogram on 11 April of this year and had stents placed in his LAD. He states that he has been taking his medications faithfully other than his long-acting nitroglycerin which she has been out of it for several months. He apparently had a prior previous history of angina prior to his stent placement. He is still smoking tobacco but states he is trying to quit. He occasionally drinks alcohol. He denies any other constitutional symptoms at this time. 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 Onset: during rest Pain location: substernal Pain radiation: none Quality: sharp Exacerbating factors: inspiration and palpation Associated symptoms: Deny abdominal pain, dyspnea, fever(s), nausea, syncope or vomiting Review of Systems Const: Denies: fever(s) or chills Eyes: Denies: change in vision or blurry vision ENMT: Denies: odynophagia or bleeding gums Card: Denies: swelling of feet/ankles, syncope or pre-syncope Resp: Denies: dyspnea, productive cough or non-productive cough GI: Denies: abdominal pain, nausea, vomiting or diarrhea : Denies: flank pain, difficulty urinating or dysuria Musc: Denies: neck pain, back pain, extremity pain or extremity swelling Skin/Breast: Denies: rash, pruritus or skin tenderness Neuro: Denies: headache(s), numbness in extremities or weakness in extremities Psych: Denies: anxiety, depression or mood swings Endo: Denies: polyuria or polydipsia Anjum/Lymph: Reports: easy bruising; Denies: easy bleeding PFSH ED PFSH: Medical History Aorta aneurysm Atherosclerosis of coronary artery COPD (chronic obstructive pulmonary disease) Depression Gastroesophageal reflux disease Gross hematuria Presence of stent in LAD coronary artery Surgical History History of cholecystectomy Family History Father Heart disease Alcoholic Lung disease Mother Healthy adult Social History Smoking and tobacco status: current every day smoker cigarettes Packs smoked per day: 0.5 Years cigarettes smoked: 20 Alcohol intake: current Alcohol intake frequency: holidays/special occasions only Marital status: Current occupational status: unemployed History of recent travel: No Physical Exam Narrative: EXAM NARRATIVE: Patient appears slightly anxious but is able to answer questions in a goal-directed fashion. Const: COMMON NORMALS: patient oriented x3 and healthy appearing GENERAL APPEARANCE: cooperative, comfortable and well kempt HENMT: COMMON NORMALS: normocephalic, atraumatic, Normal nasal mucous membranes and turbinates present, moist oral mucous membranes and oropharynx normal HEAD & SCALP: normocephalic and atraumatic NOSE: Normal nasal mucous membranes and turbinates present Eye: COMMON NORMALS: Equal, round and reactive pupils present, EOMs intact bilaterally and conjunctivae normal CONJUNCTIVA: Yes conjunctivae normal PUPIL: Yes Equal, round and reactive pupils present Neck/C-Spine: COMMON NORMALS: full ROM, no lymphadenopathy, no JVD and No carotid bruits Lymph: LYMPHATIC: no lymphadenopathy noted Chest: COMMONS NORMALS: normal inspection of the chest CHEST: Yes tenderness (Anterior chest costochondral region and the sternum bilaterally) Resp: COMMON NORMALS: normal respiratory effort, No retractions, No use of accessory muscles and clear to auscultation bilaterally EFFORT & INSPECTION: Yes abnormal respiratory pattern AUSCULTATION: clear to auscultation bilaterally Cardio: COMMON NORMALS: no JVD, regular rate, regular rhythm and No murmurs present (Cardio) RATE: regular rate RHYTHM: regular rhythm GI: COMMON NORMALS: Normal to inspection, nondistended, normoactive bowel sounds present, Soft to palpation, non-tender and no masses PALPATION: Yes Soft to palpation Back/Pelvis: COMMON NORMALS: thoracic and lumbar spine normal to inspection, no thoracic nor lumbar tenderness, thoraco-lumbar ROM normal and straight leg raise negative bilaterally Extremity: COMMON NORMALS: normal to inspection, full ROM, capillary refill normal, no clubbing, cyanosis or edema, no calf tenderness and no pedal edema Neuro: COMMON NORMALS: patient oriented x3, moves all extremities, no focal motor deficits, no sensory deficits noted and gait normal Psych: COMMON NORMALS: mental status grossly normal, Normal thought process present and speech normal APPEARANCE: Yes well kempt SPEECH: Yes normal speech THOUGHT PROCESS: Normal thought process present Skin: COMMON NORMALS: no rashes or lesions noted and turgor normal GENERAL SKIN EXAM: no rashes or lesions noted and turgor normal Course Reevaluation(s): Reevaluation #1: Patient symptoms have significantly improved after nitroglycerin. His initial troponin is reassuring. Chest x-ray does not reveal any acute changes. We will go ahead and repeat a second troponin to ensure that there is no delta. That remains normal I think the patient will be able to be discharged to outpatient cardiology follow-up. We will go ahead and ensure that he has his long-acting nitrate prior to discharge. Vital Signs: Vital signs: Vital Signs Temperature 98.5 F 05/22/21 21:29 Pulse Rate 89 05/22/21 23:15 Respiratory Rate 23 H 05/22/21 23:15 Blood Pressure 106/70 05/22/21 23:15 Pulse Oximetry 90 05/22/21 23:15 MDM - Chest Pain Medical Decision Making Patient with known history of coronary disease comes in with chest pain which is reproducible on a clinical examination. His initial troponin is unremarkable and he has a nonacute EKG. We will do serial biomarkers to ensure that there is no evidence of ACS. Pt turned over to Dr Mejia for disposition. Lab Data I reviewed the patient's lab results. : 05/22/21 21:32 05/22/21 21:32 Radiology Impressions Chest X-Ray 05/22/21 21:40 IMPRESSION: 1. Mild probable atelectasis or parenchymal scarring in the left lower lung, similar to the prior exam. 2. No definite CHF or pneumonia. 3. Other findings discussed above. Laboratory Results WBC 11.4 10^3/uL (4.0-10.0) H 05/22/21 21:32 RBC 5.30 10^6/uL (4.1-5.3) 05/22/21 21: Hgb 16.4 g/dL (11.7-16.6) 05/22/21: Hct 49.9 % (42.0-52.0) 05/22/21: MCV 94.2 fl (80-94) H 05/22/21: MCH 30.9 pg (28.0-34.0) 05/22/21: MCHC 32.9 g/dL (30.0-36.0) 05/22/21 21: RDW 13.2 % (12.1-15.1) 05/22/21: Plt Count 282 10^3/cmm (130-400) 05/22/21: MPV 9.7 fL (7.4-10.4) 05/22/21: Neut % (Auto) 54.5 % 05/22/21: Lymph % (Auto) 30.1 % 05/22/21: [place] % (Auto) 10.1 % 05/22/21: Eos % (Auto) 4.1 % 05/22/21: Baso % (Auto) 0.8 % 05/22/21: Neut # (Auto) 6.20 10^3/uL (1.8-7.7) 05/22/21: Lymph # (Auto) 3.4 10^3/uL (0.8-4.8) 05/22/21: [place] # (Auto) 1.2 10^3/uL (0.2-0.9) H 05/22/21: Eos # (Auto) 0.5 10^3/uL (0.0-0.8) 05/22/21: Baso # (Auto) 0.1 10^3/uL (0.0-0.1) 05/22/21: Nucleated RBC % (auto) 0 % 05/22/21: Nucleated RBCs # 0.0 /100WBC 05/22/21 21: Sodium 143 mmol/L (136-145) 05/22/21: Potassium 3.9 mmol/L (3.5-5.1) 05/22/21 21:32 Chloride 104 mmol/L (98-107) 05/22/21 21:32 Carbon Dioxide 23 mmol/L (22-29) 05/22/21 21:32 Anion Gap 19.9 (5-19) H 05/22/21 21:32 BUN 11 mg/dL (6-20) 05/22/21 21:32 Creatinine 0.8 mg/dL (0.7-1.2) 05/22/21 21:32 GFR Calculation 107.1 mL/min (90-130) 05/22/21 21:32 Glucose 106 mg/dL (65-115) 05/22/21 21:32 Calculated Osmolality 296 mOsm/kg (285-295) H 05/22/21 21:32 Calcium 9.6 mg/dL (8.5-10.5) 05/22/21 21:32 Troponin T Baseline 9 ng/L (0-15) 05/22/21 21:32 Troponin T 120 Minute 9.61 ng/L (0-15) 05/22/21 23:25 NT-Pro-B Natriuret Pep 48 pg/mL (0-125) 05/22/21 21:32 Imaging Data CXR: I personally reviewed and interpreted this imaging study as follows: My impression: NAD EKG Data EKG 1: I personally reviewed and interpreted this EKG as follows: EKG interpretation time: 21:39 Interpretation: Has ventricular rate of 97 bpm. He has normal [place] and QRS interval and duration. QTc is normal. His ventricular axis is normal. He has no evidence of acute ST-T wave changes at this time. Discharge Plan Discharge Patient Disposition: Home Clinical Impression: Chest pain Condition: Stable Prescriptions: No Action nitroglycerin 0.4 mg tablet, sublingual 0.4 mg sublingual Q5M PRN (Reason: Chest Pain) 0RF Rx Instructions: do not exceed 3 doses per episode omeprazole 40 mg capsule,delayed release(DR/EC) 40 mg PO DAILY 0RF metoprolol tartrate 25 mg tablet 25 mg PO DAILY 0RF isosorbide mononitrate 30 mg tablet extended release 24 hr 30 mg PO DAILY Qty: 90 3RF gabapentin 600 mg Tablet 600 mg PO BID 0RF atorvastatin 40 mg Tablet 80 mg PO BEDTIME Qty: 30 3RF clopidogrel 75 mg Tablet 75 mg PO DAILY Qty: 90 4RF aspirin 81 mg Tablet,Delayed Release (Dr/Ec) 81 mg PO DAILY Qty: 30 3RF Zofran 4 mg tablet 4 mg PO Q6H PRN (Reason: nausea and vomiting) Qty: 10 0RF Carafate 1 gram tablet 1 g PO TID 28 Days Qty: 84 0RF Discharge Orders: Discharge ED (Routine); Ordered 05/22/21 Ordered By: Oscar Mejia Referrals: Anna Roach MD [Primary Care Provider] - 1-3 days Discharge Diet: Advance as tolerated Discharge Activity: Resume usual activity Patient Instructions: Chest Pain (ED) Coding Level of Care Code ED Wellness Ambassador for Chg Fwd Exam Comprehensive Documented by User: Oscar Mejia MD 05/23/21 00:00 HPI - Chest Pain General: Chief Complaint: Chest Pain Stated Complaint: Chest Pain has Stent Time Seen by Provider: 05/22/21 21:34 PFSH ED PFSH: Medical History Aorta aneurysm Atherosclerosis of coronary artery COPD (chronic obstructive pulmonary disease) Depression Gastroesophageal reflux disease Gross hematuria Presence of stent in LAD coronary artery Surgical History History of cholecystectomy Family History Father Heart disease Alcoholic Lung disease Mother Healthy adult Social History Smoking and tobacco status: current every day smoker cigarettes Packs smoked per day: 0.5 Years cigarettes smoked: 20 Alcohol intake: current Alcohol intake frequency: holidays/special occasions only Marital status: Current occupational status: unemployed History of recent travel: No Course Vital Signs: Vital signs: Vital Signs Temperature 98.5 F 05/22/21 21:29 Pulse Rate 89 05/22/21 23:15 Respiratory Rate 23 H 05/22/21 23:15 Blood Pressure 106/70 05/22/21 23:15 Pulse Oximetry 90 05/22/21 23:15 MDM - Chest Pain Medical Decision Making Patient with known history of coronary disease comes in with chest pain which is reproducible on a clinical examination. His initial troponin is unremarkable and he has a nonacute EKG. We will do serial biomarkers to ensure that there is no evidence of ACS. Pt turned over to Dr Mejia for disposition. 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 Lab Data : 05/22/21 21:32 05/22/21 21:32 Radiology Impressions Chest X-Ray 05/22/21 21:40 IMPRESSION: 1. Mild probable atelectasis or parenchymal scarring in the left lower lung, similar to the prior exam. 2. No definite CHF or pneumonia. 3. Other findings discussed above. Laboratory Results WBC 11.4 10^3/uL (4.0-10.0) H 05/22/21 21:32 RBC 5.30 10^6/uL (4.1-5.3) 05/22/21 21:32 Hgb 16.4 g/dL (11.7-16.6) 05/22/21 21:32 Hct 49.9 % (42.0-52.0) 05/22/21 21: MCV 94.2 fl (80-94) H 05/22/21 21:32 MCH 30.9 pg (28.0-34.0) 05/22/21 21: MCHC 32.9 g/dL (30.0-36.0) 05/22/21 21: RDW 13.2 % (12.1-15.1) 05/22/21 21:32 Plt Count 282 10^3/cmm (130-400) 05/22/21 21: MPV 9.7 fL (7.4-10.4) 05/22/21 21:32 Neut % (Auto) 54.5 % 05/22/21 21: Lymph % (Auto) 30.1 % 05/22/21 21:32 [place] % (Auto) 10.1 % 05/22/21 21:32 Eos % (Auto) 4.1 % 05/22/21 21:32 Baso % (Auto) 0.8 % 05/22/21 21: Neut # (Auto) 6.20 10^3/uL (1.8-7.7) 05/22/21 21: Lymph # (Auto) 3.4 10^3/uL (0.8-4.8) 05/22/21 21:32 [place] # (Auto) 1.2 10^3/uL (0.2-0.9) H 05/22/21 21: Eos # (Auto) 0.5 10^3/uL (0.0-0.8) 05/22/21 21: Baso # (Auto) 0.1 10^3/uL (0.0-0.1) 05/22/21: Nucleated RBC % (auto) 0 % 05/22/21: Nucleated RBCs # 0.0 /100WBC 05/22/21 21:32 Sodium 143 mmol/L (136-145) 05/22/21 21: Potassium 3.9 mmol/L (3.5-5.1) 05/22/21 21: Chloride 104 mmol/L (98-107) 05/22/21 21: Carbon Dioxide 23 mmol/L (22-29) 05/22/21: Anion Gap 19.9 (5-19) H 05/22/21 21:32 BUN 11 mg/dL (6-20) 05/22/21 21: Creatinine 0.8 mg/dL (0.7-1.2) 05/22/21 21: GFR Calculation 107.1 mL/min (90-130) 05/22/21 21: Glucose 106 mg/dL (65-115) 05/22/21 21: Calculated Osmolality 296 mOsm/kg (285-295) H 05/22/21 21: Calcium 9.6 mg/dL (8.5-10.5) 05/22/21 21: Troponin T Baseline 9 ng/L (0-15) 05/22/21 21: Troponin T 120 Minute 9.61 ng/L (0-15) 05/22/21 23:25 NT-Pro-B Natriuret Pep 48 pg/mL (0-125) 05/22/21 21:32 Discharge Plan Discharge Patient Disposition: Home Clinical Impression: Chest pain Condition: Stable Prescriptions: No Action nitroglycerin 0.4 mg tablet, sublingual 0.4 mg sublingual Q5M PRN (Reason: Chest Pain) 0RF Rx Instructions: do not exceed 3 doses per episode omeprazole 40 mg capsule,delayed release(DR/EC) 40 mg PO DAILY 0RF metoprolol tartrate 25 mg tablet 25 mg PO DAILY 0RF isosorbide mononitrate 30 mg tablet extended release 24 hr 30 mg PO DAILY Qty: 90 3RF gabapentin 600 mg Tablet 600 mg PO BID 0RF atorvastatin 40 mg Tablet 80 mg PO BEDTIME Qty: 30 3RF clopidogrel 75 mg Tablet 75 mg PO DAILY Qty: 90 4RF aspirin 81 mg Tablet,Delayed Release (Dr/Ec) 81 mg PO DAILY Qty: 30 3RF Zofran 4 mg tablet 4 mg PO Q6H PRN (Reason: nausea and vomiting) Qty: 10 0RF Carafate 1 gram tablet 1 g PO TID 28 Days Qty: 84 0RF Discharge Orders: Discharge ED (Routine); Ordered 05/22/21 Ordered By: Oscar Mejia Referrals: Anna Roach MD [Primary Care Provider] - 1-3 days Discharge Diet: Advance as tolerated Discharge Activity: Resume usual activity Patient Instructions: Chest Pain (ED) Coding Level of Care Code ED Wellness Ambassador for Chg Fwd Exam Comprehensive
[2021-05-22 21:46] LABS: Basophils # 0.1 10^3/uL (0.0-0.1); Basophils % 0.8 %; Eosinophils # 0.5 10^3/uL (0.0-0.8); Eosinophils % 4.1 %; Hematocrit 49.9 % (42.0-52.0); Hemoglobin 16.4 g/dL (11.7-16.6); Lymphocytes # 3.4 10^3/uL (0.8-4.8); Lymphocytes % 30.1 %; Mean Corpuscular HGB Conc 32.9 g/dL (30.0-36.0); Mean Corpuscular Hemoglobin 30.9 pg (28.0-34.0); Mean Corpuscular Volume 94.2 fl (80-94); Mean Platelet Volume 9.7 fL (7.4-10.4); Monocytes # 1.2 10^3/uL (0.2-0.9); Monocytes % 10.1 %; Neutrophils % 54.5 %; Nucleated Red Blood Cells % 0 %; Platelet Count 282 10^3/cmm (130-400); Red Cell Distribution Width 13.2 % (12.1-15.1); White Blood Count 11.4 10^3/uL (4.0-10.0)
[2021-05-22] MEDS: nitroglycerin 0.4 mg sublingual Tablet SUBLINGUAL ×3 (21:57→22:08)
[2021-05-22 22:08] LABS: Troponin(5th) Baseline 9 ng/L (0-15)
[2021-05-22 22:15] LABS: Blood Urea Nitrogen 11 mg/dL (6-20); Calcium 9.6 mg/dL (8.5-10.5); Carbon Dioxide 23 mmol/L (22-29); Chloride 104 mmol/L (98-107); Creatinine Clr Calc Pharmacy 148.5569; Glomerular Filtration Rate 107.1 mL/min (90-130); Glucose 106 mg/dL (65-115); NT Pro B Type Natriuretic Pept 48 pg/mL (0-125); Osmolality Calculated 296 mOsm/kg (285-295); Sodium 143 mmol/L (136-145)
[2021-05-22 22:16] LABS: Anion Gap 19.9 (5-19); Potassium 3.9 mmol/L (3.5-5.1)
[2021-05-22 22:21] VITALS: BP 116/68; PULSE 112; RESP 23; O2SAT 91
--- NOTE | 2021-05-22 22:30 | PC.NURSE ---
Pt. states that the nitro helped his pain and it is gone.
[2021-05-22 22:41] VITALS: BP 111/78; PULSE 92; RESP 17; O2SAT 92
[2021-05-22 23:15] VITALS: BP 106/70; PULSE 89; RESP 23; O2SAT 90
--- NOTE | 2021-05-22 23:40 | ECG_ITS ---
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 Measurements Intervals [place] Rate: 78 P: 28 [place]: 170 QRS: 59 QRSD: 100 T: 51 QT: 350 QTc: 401 Interpretive Statements SINUS RHYTHM NONSPECIFIC T-WAVE ABNORMALITY Compared to ECG 05/07/2021 22:25:47 Sinus arrhythmia no longer present Possible ischemia no longer present T-wave abnormality still present Electronically Signed On 05-23-2021 12:17:02 ENVIRONMENTAL AIDE by Spenser Carrillo M.D. [id number]
[2021-05-22 23:51] LABS: Troponin 5 2HR 9.61 ng/L (0-15)
== END 2021-05-23 00:06 | disposition home or self-care (01) ==
PROVIDERS: Emergency Medicine; Emergency Provider Emergency Medicine; PCP Family Medicine
DX: R07.9 Chest pain, unspecified (principal); Z79.02 Long term (current) use of antithrombotics/antiplatelets; Z79.82 Long term (current) use of aspirin; I25.10 Atherosclerotic heart disease of native coronary artery without angina pectoris; J44.9 Chronic obstructive pulmonary disease, unspecified; F17.210 Nicotine dependence, cigarettes, uncomplicated
CPT/HCPCS: 71045; 80048; 83880; 84484; 85025; 93005; 96374; 99284

== ENCOUNTER → 2021-05-30 10:25 | Outpatient (BNVA) | payer OTHER, SELFPAY | PROVIDERS: PCP Family Medicine; Visit Provider Family Medicine | DX: M54.6 Pain in thoracic spine (principal); M54.12 Radiculopathy, cervical region | CPT/HCPCS: 72040; 72072 ==

== ENCOUNTER 2021-06-02 08:41 | Outpatient (CLI) | payer MEDICAID, SELFPAY ==
--- NOTE | 2021-06-02 09:00 | XR_ITS ---
WS: [id number] KUB, AP view, 06/02/2021 Clinical Data: LEFT URETERAL CALCULUS Comparison: Acute abdomen series, 12/28/2020. CT abdomen pelvis, 05/01/2021. Findings: There is a 1.6 cm stone in the inferior aspect of the right kidney unchanged. There are clips in the right upper quadrant from a cholecystectomy. There is a density superior to the cholecystectomy clips is not in the renal system but may be in the subcutaneous tissue. The left kidney is obscured by ove rlying bowel gas. No definite bladder or pelvic calculi are seen. There is no bowel dilatation or evidence for obstruction. XR/XR KUB [id number] Impression: Right renal calculus unchanged.
== END 2021-06-02 08:42 | disposition home or self-care (01) ==
PROVIDERS: PCP Family Medicine; Visit Provider Urology
DX: N20.1 Calculus of ureter (principal); N20.0 Calculus of kidney
CPT/HCPCS: 74018; 81003; 87635

== ENCOUNTER 2021-06-06 07:35 | Day surgery (SDC) | payer MEDICAID, SELFPAY ==
[2021-06-03 15:11] VITALS: BMI 29.1
[2021-06-06] VITALS (10 sets, daily range): BP systolic 98–134; BP diastolic 52–86; PULSE 65–83; RESP 16–20; TEMP 36.2–36.9; O2SAT 90–94
--- NOTE | 2021-06-06 | SCC_ITS ---
Procedure done: Cystoscopy, bilateral retrograde ureteropyelograms LEFT ureteroscopy, stone manipulation, stent RIGHT: Ureteroscopy, stent 64.8 seconds of fluoroscopic guidance, for a cumulative dose of 19.64 mGy, was provided to Dr. Gonzales by the radiology department. C-arm images of the abdomen were saved for the patient's permanent record. [facility]
--- NOTE | 2021-06-06 07:44 | SC_ITS ---
WS: [id number] INTRAOPERATIVE TECHNIQUE: 3 Spot fluoroscopic images for intraoperative purposes. FLUOROSCOPY TIME: 64.8 seconds CLINICAL INFORMATION: Bilateral urolithiasis COMPARISON: None. FINDINGS: RIGHT ureteral stent placement. Upper pole RIGHT renal parenchymal calculi appears unchanged. Fluoroscopy used for intraoperative purposes. SC/C-arm FL for Urology IMPRESSION: Images obtained for intraoperative purposes.
[2021-06-06] MEDS: sodium chloride 0.9% 1,000 ML 30 ML IV (08:27)
--- NOTE | 2021-06-06 08:49 | ANES.PREANE2 ---
Pre-Anesthetic Assessment Height/Weight: Height 1.83 m Weight 97.522 kg Temp Pulse Resp BP Pulse Ox 98.4 F 65 18 124/85 94 06/06/21 07:58 06/06/21 07:58 06/06/21 07:58 06/06/21 07:58 06/06/21 07:58 Preop Diagnosis: Left distal ureteral stone, right lower pole stone Operation Date: 06/06/21 09:40 Proposed Procedures p Cystoscopy [id number]/N20.0(Not Applicable) - Hussein Gonzales MD s Retrograde Pyelogram(Bilateral) - MD hernan De Anda Ureteroscopy(Bilateral) - MD hernan De Anda Laser Lithotripsy(Bilateral) - Hussein Gonzales MD s Ureteral Stent Placement(Bilateral) - Hussein Gonzales MD Familial anesthetic complications: None Was Beta Branden taken within 24 hours: Yes Was Clonidine taken within 24 hours: N/A Last intake: Intake Last Liquid Date 06/05/21 Last Liquid Time 21:00 Last Solid Date 06/05/21 Last Solid Time 21:00 Social Alcohol and Tobacco Exam alert, oriented x 3 and regular rate & rhythm Diminished lung sounds b/l, no wheezing detected Airway Submandibular: within normal limits Cervical ROM: within normal limits (Has pain/discomfort with normal ROM in extension/flexion) Mallampati: Class III Dentition: chipped and loose Comments: Comments: Missing upper front teeth, very poor dentition Pulmonary Chronic Obstructive Pulmonary Disease CV/HEM Coronary Artery Disease and Hypertension METS < 4 Does not exercise Has chest pain w/ exertion and at rest Aortic aneurysm unspecified hx per cardiology note LAD stent placed 04/11/2021 w/ hx of noncompliance with dual antiplatelet therapy 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 1. There is significant? coronary artery disease with one vessel disease. ? 2. Mid Left Anterior Descending was treated with a Balloon, Drug Eluting Stent, and Balloon. ? 3. IFR: After equalizing the distal and proximal pressure of FFR wire proximal to the lesion, mid LAD lesion was crossed with IFR wire.? Spot iFR was noted to be 0.87 which was significant.? Pullback was performed which improved across the proximal lesion the gradient to 0.97 this mean the proximal lesion is not significant.. Recommendations ? * 1-Return to inpatient for close monitoring and routine cath care ?2-Risk factor modification for secondary prevention 3-Statin and aspirin 81 mg life--long, if tolerated 4-Patient was pre-loaded with 600 mg of Plavix, continue Plavix 75mg p.o. daily for at least one year. We will assess at the end of one year again to continue if further or not 5-Continue optimal medical management 6-Follow up with Dr. Amaya in four weeks and your primary care in 10 days. Summary of outside reports by Doctor Amaya on 05/25/2021 Prior records from [facility] obtained and reviewed. #EKG with normal sinus rhythm and normal EKG #Cardiac catheterization 30 June 2020: Normal left main, mid LAD calcified 50 to 60% stenosis.? 30% narrowing at the origin of first diagonal branch.? No significant stenosis in circumflex and RCA.? iFR of LAD 0.92.? LVEF of 65%. #Echocardiogram 29 June 2020: Normal left atrial size.? Mild to moderate left ventricle hypertrophy.? Normal left ventricle systolic function with ejection fraction 65%.? No diagnostic regional wall motion normality.? Normal diastolic function.? Mildly dilated aortic root measured at 4.3 cm. ? Renal stones Hepatic None reported GI Gastroesophageal Reflux Disease Metabolic None reported Musc/skel None reported Neuropsych Depression Cervical radiuculopathy Anesthetic Plan ASA status: 3 (41 year old male with hx of recent LAD stent placement, GERD, and tobacco use disorder and staghorn calculus ) Anesthesia: Anesthesia Evaluation and General Other: We discussed risk and benefits of general anesthesia including PONV, sore throat (sometimes severe), corneal abrasion, positioning and peripheral nerve injuries, life threatening allergic reaction, post operative ICU admission requiring prolonged intubation, stroke, heart attack, , and rare incidences of recall. Patient consents to proceed with general anesthesia. Risk of > 500 ml blood loss (7ml/kg in children): No Medications/Allergies Home Medications Medication Instructions Recorded Confirmed Last Taken Type gabapentin 600 mg tablet 600 mg PO TID 04/11/21 06/06/21 06/05/21 History aspirin 81 mg tablet,delayed 81 mg PO DAILY #30 tab 04/12/21 06/06/21 06/03/21 Rx release clopidogrel 75 mg tablet 75 mg PO DAILY #90 tab 04/12/21 06/06/21 06/03/21 Rx omeprazole 40 mg capsule,delayed 40 mg PO DAILY 04/27/21 06/06/21 06/05/21 History release atorvastatin 80 mg tablet 80 mg PO BEDTIME #90 tab 05/25/21 06/06/21 06/05/21 Rx isosorbide mononitrate 60 mg 60 mg PO DAILY #90 tab 05/25/21 06/06/21 06/05/21 Rx tablet,extended release 24 hr metoprolol succinate 50 mg 50 mg PO DAILY #90 tab 05/25/21 06/06/21 06/05/21 Rx tablet,extended release 24 hr nitroglycerin 0.4 mg sublingual 0.4 mg SUBLINGUAL Q5M PRN #30 tab 05/25/21 06/06/21 Unknown Rx tablet baclofen 20 mg tablet 20 mg PO TID #90 tab 05/30/21 06/06/21 06/05/21 Rx cephalexin 500 mg capsule 500 mg PO TID 06/03/21 06/06/21 06/05/21 History duloxetine 60 mg capsule,delayed 60 mg PO DAILY 06/03/21 06/06/21 06/05/21 History release (Cymbalta) [id number] 1 cap PO BID 06/03/21 06/06/21 06/05/21 History 24,000-76,000-120,000 unit capsule,delayed rel (Creon) Allergies Allergy/AdvReac Type Severity Reaction Status Date / Time No Known Allergies Allergy Verified 06/06/21 07:57 Current Medications Generic Name Dose Route Start Last Admin Trade Name Freq PRN Reason Stop Dose Admin Sodium Chloride 1,000 mls @ 30 mls/hr 06/06/21 07:45 06/06/21 08:27 Sodium Chloride 0.9% IV 06/07/21 07:44 30 mls/hr .Q24H POP Administration PFSH Anesthesia Medical History Aorta aneurysm Atherosclerosis of coronary artery COPD (chronic obstructive pulmonary disease) Depression Dyslipidemia Gastroesophageal reflux disease Gross hematuria HTN (hypertension) Presence of stent in LAD coronary artery Surgical History H/O colonoscopy with polypectomy History of cholecystectomy Hx of heart artery stent Family History Father Heart disease Alcoholic Lung disease Mother Healthy adult Social History Smoking and tobacco status: current every day smoker cigarettes Packs smoked per day: 0.5 Years cigarettes smoked: 20 Alcohol intake: current Alcohol intake frequency: holidays/special occasions only Marital status: Current occupational status: unemployed History of recent travel: No Data Anesthesia Cardiac Studies: No Data to Display
--- NOTE | 2021-06-06 09:34 | P.OP_ITS ---
Operative Report Date of procedure: June 06, 2021 Pre-op diagnosis: Preop Diagnosis Left distal ureteral stone, right lower pole stone Post-op findings: Same Procedure done: Cystoscopy, bilateral retrograde ureteropyelograms LEFT ureteroscopy, stone manipulation, stent RIGHT: Ureteroscopy, stent Implants: Bilateral ureteral stents: 1. 6 Colombian by 30 left ureteral stent no string 2. 7 Colombian by 30 RIGHT ureteral stent with no string Specimens removed/disposition: Stone fragments left distal ureteral stone Pathology: Tiny stone fragments left distal ureteral stone Surgeon: Christian Anesthesia: General Estimated blood loss: Minimal Complications: None Findings: Left ureter: Small stone very spiculated in the left distal ureter. Fragmented with basket and fragments removed. Temporary left ureteral stent left indwelling for healing purposes. Right kidney: Stone seen on right retrograde ureteropyelogram. Could not easily bypass the ureter at the level of the right pelvic vessels utilizing the flexible ureteroscope. For that reason a stent was left indwelling for passive dilation purposes with plans for reattempt in a couple weeks. Brief History: Jovanny is a 41-year-old white male with a history of left distal ureteral stone previously on CT scan. Unaware of having passed it. Was still having some lower urinary tract symptoms suspicious possibly for a UVJ stone. He also complained of chronic right lower quadrant pain and was noted on previous imaging to have a right lower pole stone that had not obviously changed. It was not obviously causing obstruction either. Reviewed that the likelihood of the right lower pole stone causing his right lower quadrant pain was low but could n ot rule that out. Ultimately he elected to proceed with treatment of the right lower pole stone with flexible ureteroscopy laser lithotripsy (on chronic anticoagulation with recent coronary artery stenting) We also elected to proceed with left retrograde ureteropyelogram ureteroscopy to rule out residual left ureteral vesicle junction stone seen on previous CT scan that he was unaware of having passed Procedure: After routine preoperative evaluation examination and obtaining of informed consent he was taken to the operating suite on 06/06/2021 where general anesthesia was administered without difficulty after appropriate timeout was performed, SCDs confirmed to be functioning, preoperative antibiotics administered, beta- patrick protocol confirmed. Prepped and draped in usual sterile fashion in dorsolithotomy position paying careful attention to avoiding pressure points. 21 Colombian cystoscope with 30 degree lens was introduced into urethra meatus and advanced into the bladder videoscopy. Bladder systematically examined. No gross abnormality identified. No stones. An 8 Colombian cone-tip catheter was intubated into the left ureteral orifice for left retrograde ureteropyelogram: A filling defect in the distal ureter consistent with a stone seen previously on CT scan was identified. The ureter proximal to that point was minimally dilated. A flexible tip guidewire was easily advanced up the left ureter bypassing the stone curling in the area of the renal pelvis. The distal ureter was dilated with a 15 Colombian 4 cm balloon with no waist. Bladder was drained and the wire secured to the drapes as a safety wire. An offset semirigid ureteroscope was then advanced up the left ureter where the stone was encountered in its expected position. A basket was utilized to secure it which actually broke the stone into smaller pieces. These pieces were one by one basketed from the ureter. Final inspection showed no residual pieces. A 6 Colombian by 30 cm double-pigtail stent was advanced over the guidewire through the cystoscope into appropriate position as confirmed via fluoroscopy and cystoscopy. Attention was then directed to the RIGHT side. An 8 Colombian cone-tip catheter was intubated to the right ureteral orifice for right retrograde ureteropyelogram demonstrating normal course and caliber of the ureter. There did appear to be some mild intrinsic narrowing at the level of the pelvic vessels. No other gross abnormality. Stone was seen. Flexible tip guidewire was then advanced up the right ureter curling in the upper pole calyx. The distal ureter was then dilated with a 15 Colombian 4 cm balloon with no waist at 6 melba of pressure. A second guidewire was passed after the balloon was removed and the first wire was secured to the drapes as a safety wire. The flexible ureteroscope was then attempted to be passed up to the right ureter but was unsuccessful. There was an area of narrowing seen on the retrograde and demonstrated with ureteroscopy at the level of the right pelvic vessels. No pathology identified with a just could not easily manipulate the scope past that point. It was then decided to pass a stent for passive dilation for a safer reattempt at a later date. Cystoscope was then backloaded over the safety wire in the right kidney and a 7 Colombian by 30 cm double-pigtail stent was advanced over the guidewire through the cystoscope into appropriate position as confirmed via fluoroscopy and cystoscopy. Both stents were confirmed to be functioning. Bladder was drained. Some of the very tiny fragments of the stone were collected and sent for pathologic evaluation Tolerated procedure well without complications. Awakened in the operating room and returned recovery room. PLANS: 1. Plan tentatively for repeat right ureteroscopy in about 2 weeks. We will plan on taking out the left stent at the same time.
--- NOTE | 2021-06-06 09:34 | W.PM.OPSUD ---
Surgery/Procedure H&P Update DATE OF PROCEDURE: June 06, 2021 DATE H&P PERFORMED: 06/02/21 H&P UPDATE INFORMATION: I have reviewed H&P completed within last 30 days, I have examined patient prior to procedure, No changes to prior documentation and H&P is in [facility] [place] on date indicated PREOP DIAGNOSIS: Left distal ureteral stone, right lower pole stone PLANNED PROCEDURE: Operation Date: 06/06/21 09:40 Proposed Procedures p Cystoscopy [id number]/N20.0(Not Applicable) - Hussein Gonzales MD s Retrograde Pyelogram(Bilateral) - MD hernan De Anda Ureteroscopy(Bilateral) - MD hernan De Anda Laser Lithotripsy(Bilateral) - MD hernan De Anda Ureteral Stent Placement(Bilateral) - Hussein Gonzales MD
[2021-06-06] MEDS: levofloxacin-dextrose 5 % 500 MG/100 ML PREMIX 100 MG IV (09:55)
--- NOTE | 2021-06-06 10:20 | SUR.OPER ---
OMNIPAQUE 300MGI/ML 50ML ADDED TO STERILE FIELD.
--- NOTE | 2021-06-06 12:00 | PC.NURSE ---
Received telephone order from Dr Gonzales for one time order for Percocet 5 and AZO 200mg for pain and urgency.
--- NOTE | 2021-06-06 12:33 | PC.NURSE ---
Pt with dry heaving and c/o pain. Offered PRN zofran and pain meds. Patient refused. Stated he was going to attempt to eat crackers and drink some water so he can take the percocet and AZO. at bedside and attentive. Pt was able to use urinal with c/o urgency. 100cc blood tinged urine. Pt verified burning with urination. Nurse left room to provide patient privacy. Will let nurse know when ready for pain pill and AZO
[2021-06-06] MEDS: phenazopyridine 100 mg Tablet 200 MG PO (12:45)
[2021-06-06] MEDS: oxyCODONE-APAP 5-325 mg Tablet 1 TAB PO (12:45)
[2021-06-06] MEDS: ondansetron 2 mg/ML SDV 2 mL 4 MG IVP (12:59)
--- NOTE | 2021-06-06 12:59 | PC.NURSE ---
Patient now dry heaving again after eating crackers and drinking water. Pt took percocet and AZO about 5-10 mins ago. Patient agreed to get IVP Zofran. Pt sitting on toilet in restroom with trashcan in front of him. Will see if medicine helps.
--- NOTE | 2021-06-06 13:05 | ANE.PACU2 ---
Inpatient post-anesthesia follow up: Airway intact: Yes Vital signs: Temperature 97.2 F Pulse Rate 83 Respiratory Rate 20 Blood Pressure 134/86 Pulse Oximetry 90 Oxygen Delivery Me thod Room Air Oxygen Flow Rate 2 Fraction of Inspir ed Oxygen Hydration adequate: Yes Nausea and vomiting: No Pain level: 5 Mental status: Baseline
--- NOTE | 2021-06-06 13:45 | PC.NURSE ---
Pt voices feeling better after all meds given. Resulted home with with all personal belongings. Denies needs at this time.
[2021-06-10 19:47] LABS: Stone Source LEFT URETER
== END 2021-06-06 13:45 | disposition home or self-care (01) ==
PROVIDERS: PCP Family Medicine; Visit Provider Urology
PROC: 0TJB8ZZ Inspection of Bladder, Via Natural or Artificial Opening Endoscopic (ICD-10-PCS; CPT 52000; principal; 2021-06-06 09:30)
PROC: (CPT 74420; 2021-06-06 09:30)
PROC: 0TJ98ZZ Inspection of Ureter, Via Natural or Artificial Opening Endoscopic (ICD-10-PCS; CPT 52351; 2021-06-06 09:30)
PROC: (CPT 50605; 2021-06-06 09:30)
DX: N20.1 Calculus of ureter (principal); J44.9 Chronic obstructive pulmonary disease, unspecified; I25.10 Atherosclerotic heart disease of native coronary artery without angina pectoris; I10 Essential (primary) hypertension; K21.9 Gastro-esophageal reflux disease without esophagitis; F32.9 Major depressive disorder, single episode, unspecified; Z95.828 Presence of other vascular implants and grafts; Z12.11 Encounter for screening for malignant neoplasm of colon; Z79.82 Long term (current) use of aspirin; E78.5 Hyperlipidemia, unspecified; Z82.49 Family history of ischemic heart disease and other diseases of the circulatory system
CPT/HCPCS: 52332; 52352; 76000; 82365; 88300; C2625; J0330; J1956; J2250; J2405; J2704; J3010; J7030

== ENCOUNTER 2021-06-17 19:49 | Emergency (ER) | payer MEDICAID, SELFPAY ==
[2021-06-17 19:54] VITALS: BP 146/93; PULSE 97; RESP 18; TEMP 36.6; O2SAT 97; BMI 29.1
[2021-06-17 20:51] LABS: Basophils # 0.1 10^3/uL (0.0-0.1); Basophils % 0.7 %; Eosinophils # 0.4 10^3/uL (0.0-0.8); Eosinophils % 3.9 %; Hematocrit 49.2 % (42.0-52.0); Hemoglobin 16.1 g/dL (11.7-16.6); Lymphocytes # 3.2 10^3/uL (0.8-4.8); Lymphocytes % 29.2 %; Mean Corpuscular HGB Conc 32.7 g/dL (30.0-36.0); Mean Corpuscular Hemoglobin 30.6 pg (28.0-34.0); Mean Corpuscular Volume 93.5 fl (80-94); Mean Platelet Volume 9.8 fL (7.4-10.4); Monocytes # 1.1 10^3/uL (0.2-0.9); Monocytes % 10.3 %; Neutrophils # 6.03 10^3/uL (1.8-7.7); Neutrophils % 55.5 %; Nucleated Red Blood Cells % 0 %; Platelet Count 336 10^3/cmm (130-400); Red Blood Count 5.26 10^6/uL (4.1-5.3); Red Cell Distribution Width 13.2 % (12.1-15.1); White Blood Count 10.9 10^3/uL (4.0-10.0)
[2021-06-17 21:00] VITALS: BP 130/69; PULSE 68; RESP 20; O2SAT 98
[2021-06-17 21:01] LABS: Alanine Aminotransferase 31 U/L (0-41); Albumin Level 4.5 g/dL (3.5-5.2); Alkaline Phosphatase 127 IU/L (40-130); Anion Gap 16.9 (5-19); Aspartate Amino Transferase 16 U/L (0-40); Blood Urea Nitrogen 14 mg/dL (6-20); Calcium 9.3 mg/dL (8.5-10.5); Carbon Dioxide 22 mmol/L (22-29); Chloride 104 mmol/L (98-107); Creatinine Clr Calc Pharmacy 148.5569; Globulin 2.4 g/dL (1.3-4.6); Glomerular Filtration Rate 107.1 mL/min (90-130); Glucose 104 mg/dL (65-115); Lipase 34 U/L (13-60); Osmolality Calculated 289 mOsm/kg (285-295); Potassium 3.9 mmol/L (3.5-5.1); Sodium 139 mmol/L (136-145); Total Bilirubin 0.2 mg/dL (0.15-1.2); Total Protein 6.9 g/dL (6.6-8.7)
[2021-06-17 21:50] LABS: Urine Appearance Cloudy (CLEAR); Urine Color Red (Yellow)
[2021-06-17 21:51] LABS: Add Urine Culture? Yes; Add Urine Microscopic? YES; Bacteria Urine 1+ /hpf; Bilirubin Urine Neg (Negative); Blood Urine 4+ (Negative); Glucose Urine UA Norm (Normal); Ketones Urine Negative (Negative); Leukocyte Esterase Urine Negative (Negative); Nitrate Urine Negative (Negative); Protein Urine 3+ (Negative); RBC Urine TOO NUMEROUS TO CNT /hpf (0-2); Specific Gravity, Urine 1.025 (1.005-1.030); Squamous Epithelial Cell Urine 0-4 /hpf (0-5); Urobilinogen Urine Norm (Negative); pH Urine 5 (5-7)
--- NOTE | 2021-06-17 22:18 | CTR_ITS ---
PROCEDURE INFORMATION: Exam: CT Abdomen And Pelvis Without Contrast Exam date and time: 06/17/2021 10:30 PM Age: 41 years old Clinical indication: Abdominal pain; Right; Prior surgery; Surgery type: Ureteral stents. Gb. Coronary stent. ; Patient HX: C/O RT flank pain. ; Additional info: Right flank pain TECHNIQUE: Imaging protocol: Computed tomography of the abdomen and pelvis without contrast. Radiation optimization: All CT scans at this facility use at least one of these dose optimization techniques: automated exposure control; mA and/or kV adjustment per patient size (includes targeted exams where dose is matched to clinical indication); or iterative reconstruction. COMPARISON: CT abdomen pelvis w con* [id number] 05/01/2021 1:56 AM RADIATION DOSE METRICS: Total DLP (mGy-cm): 1688.32 FINDINGS: Liver: The liver is mildly enlarged and demonstrates mild fatty infiltration changes. No parenchymal lesion is visualized. Gallbladder and bile ducts: Normal. No calcified stones. No ductal dilation. Pancreas: Normal. No ductal dilation. Spleen: Normal. No splenomegaly. Adrenal glands: Normal. No mass. Kidneys and ureters: Renal stones are present in both kidneys. Mild right hydronephrosis is noted. No ureteral stone is seen. Bilateral ureteral stents are in place. Mild bilateral perinephric and periureteral fat stranding is appreciated. Stomach and bowel: Unremarkable. No obstruction. No mucosal thickening. Appendix: The appendix is normal. Intraperitoneal space: Unremarkable. No free air. No significant fluid collection. Vasculature: Unremarkable. No abdominal aortic aneurysm. Lymph nodes: Unremarkable. No enlarged lymph nodes. Urinary bladder: Unremarkable as visualized. Reproductive: Unremarkable as visualized. Bones/joints: Unremarkable. No acute fracture. Soft tissues: Unremarkable. CT/CT kidney stone [id number] IMPRESSION: 1. Nephrolithiasis of bilateral ureteral stents. No ureteral stone is seen. Mild right hydronephrosis is appreciated. Bilateral perinephric and periureteral fat stranding may be secondary to inflammatory or infectious changes. Correlate with urinalysis. 2. Mild hepatomegaly and hepatic steatosis.
--- NOTE | 2021-06-17 22:26 | ED_ITS ---
HPI - Abdominal Pain General: Chief Complaint: Abdominal Pain Stated Complaint: ABD Pain Time Seen by Provider: 06/17/21 22:17 History of Present Illness: Patient is a 41-year-old male who comes to the ED with right flank pain. Patient has been having this pain for the past 2 weeks. He has a history of kidney stones and he saw Dr. Gonzales approximately 2 weeks ago and stents were placed. Ever since then he has had some dysuria, hematuria and still having the right flank pain. He rates his pain currently an 8 out of 10. He has an appointment with Dr. Gonzales this coming Sunday for reevaluation and possible procedure. Associated Symptoms: Reports dysuria and hematuria; Denies chills, constipation, diarrhea, fever(s), hematochezia, nausea and vomiting Review of Systems Const: Denies: fever(s), chills or fatigue Eyes: Denies: change in vision or eye discomfort ENMT: Denies: throat pain, odynophagia, nasal discharge or nasal congestion Card: Denies: chest pain, palpitations, edema, swelling of feet/ankles, dyspnea on exertion or orthopnea Resp: Denies: dyspnea, productive cough or non-productive cough GI: Denies: abdominal pain, nausea, vomiting, diarrhea, constipation or hematochezia : Reports: flank pain (right flank), dysuria and hematuria; Denies: difficulty urinating Musc: Denies: neck pain, back pain or extremity swelling Skin/Breast: Denies: rash or new lesions Neuro: Denies: headache(s), numbness in extremities or weakness in extremities PFS ED PFSH: Medical History Aorta aneurysm Atherosclerosis of coronary artery COPD (chronic obstructive pulmonary disease) Depression Dyslipidemia Gastroesophageal reflux disease Gross hematuria HTN (hypertension) Presence of stent in LAD coronary artery Surgical History H/O colonoscopy with polypectomy History of cholecystectomy Hx of heart artery stent Family History Father Heart disease Alcoholic Lung disease Mother Healthy adult Social History Smoking and tobacco status: current every day smoker cigarettes Packs smoked per day: 0.5 Years cigarettes smoked: 20 Alcohol intake: current Alcohol intake frequency: holidays/special occasions only Marital status: Current occupational status: unemployed History of recent travel: No Physical Exam Const: COMMON NORMALS: no acute distress, patient oriented x3, healthy appearing and alert GENERAL APPEARANCE: cooperative and comfortable HENMT: COMMON NORMALS: normocephalic HEAD & SCALP: normocephalic MOUTH: Normal oral and palatal mucosa present THROAT: posterior oropharynx normal and uvula midline Eye: COMMON NORMALS: Equal, round and reactive pupils present and conjunctivae normal CONJUNCTIVA: Yes conjunctivae normal PUPIL: Yes Equal, round and reactive pupils present Neck/C-Spine: COMMON NORMALS: supple GENERAL: Yes normal visual inspection Resp: COMMON NORMALS: normal respiratory effort, No retractions, No use of accessory muscles and clear to auscultation bilaterally AUSCULTATION: clear to auscultation bilaterally Cardio: COMMON NORMALS: regular rate, regular rhythm, S1 normal heart sound present, S2 normal heart sound present, No gallops present (Cardio), No clicks present (Cardio), No murmurs present (Cardio) and Peripheral pulses 2+ throughout RATE: regular rate RHYTHM: regular rhythm HEART SOUNDS: S1 normal heart sound present and S2 normal heart sound present PERIPHERAL PULSES: Peripheral pulses 2+ throughout GI: COMMON NORMALS: Normal to inspection, nondistended, normoactive bowel sounds present, Soft to palpation and no masses PALPATION: Yes Soft to palpation and Yes Tenderness to palpation present (GI) (Right right side of abdomen/right flank tenderness.) : BLADDER/KIDNEY EXAM: Yes CVA tenderness on the right Back/Pelvis: GENERAL BACK: Yes CVA tenderness Extremity: COMMON NORMALS: normal to inspection Neuro: COMMON NORMALS: patient oriented x3 SENSORIUM/ORIENTATION: Yes alert GAIT: Yes Normal gait present Skin: GENERAL SKIN EXAM: dry skin Course Vital Signs: Vital signs: Vital Signs Temperature 97.8 F 06/17/21 19:54 Pulse Rate 96 06/18/21 00:30 Respiratory Rate 20 H 06/18/21 00:30 Blood Pressure 125/94 06/18/21 00:30 Pulse Oximetry 98 06/18/21 00:30 MDM - Abdominal Pain Medical Decision Making Patient is a 41-year-old male comes to the ED with right flank pain, dysuria and hematuria. Patient has been having the symptoms now for the past 2 weeks since he saw Dr. Gonzales and was diagnosed with kidney stones. He had bilateral ureteral stents placed [address] Gonzales. Vitals are stable. Patient appears nontoxic in no acute distress or pain. He has some right CVA tenderness. White blood cell count 10.9 the rest of CBC and CMP were unremarkable. UA shows a lot of blood but no signs of infection. CT abdomen showed bilateral ureteral stents but no stones seen. Patient's next appointment with Dr. Gonzales is on June 22. Patient diagnosed with renal colic and hematuria. He has pain medications at home he can use to help with any pain. He was told to follow-up with Dr. Gonzales at his next scheduled appo intment on June 22. Return to ED precautions given. Patient understood and agree with plan. Lab Data I reviewed the patient's lab results. : 06/17/21 20:25 06/17/21 20:25 Labs/Radiology: Radiology Impressions Abdomen/Pelvis CT 06/17/21 22:18 IMPRESSION: 1. Nephrolithiasis of bilateral ureteral stents. No ureteral stone is seen. Mild right hydronephrosis is appreciated. Bilateral perinephric and periureteral fat stranding may be secondary to inflammatory or infectious changes. Correlate with urinalysis. 2. Mild hepatomegaly and hepatic steatosis. Laboratory Results WBC 10.9 10^3/uL (4.0-10.0) H 06/17/21 20:25 RBC 5.26 10^6/uL (4.1-5.3) 06/17/21 20:25 Hgb 16.1 g/dL (11.7-16.6) 06/17/21 20:25 Hct 49.2 % (42.0-52.0) 06/17/21 20:25 MCV 93.5 fl (80-94) 06/17/21 20:25 MCH 30.6 pg (28.0-34.0) 06/17/21 20:25 MCHC 32.7 g/dL (30.0-36.0) 06/17/21 20:25 RDW 13.2 % (12.1-15.1) 06/17/21 20:25 Plt Count 336 10^3/cmm (130-400) 06/17/21 20:25 MPV 9.8 fL (7.4-10.4) 06/17/21 20:25 Neut % (Auto) 55.5 % 06/17/21 20:25 Lymph % (Auto) 29.2 % 06/17/21 20:25 [place]k % (Auto) 10.3 % 06/17/21 20:25 Eos % (Auto) 3.9 % 06/17/21 20:25 Baso % (Auto) 0.7 % 06/17/21: Neut # (Auto) 6.03 10^3/uL (1.8-7.7) 06/17/21 20: Lymph # (Auto) 3.2 10^3/uL (0.8-4.8) 06/17/21 20: [place]k # (Auto) 1.1 10^3/uL (0.2-0.9) H 06/17/21 20: Eos # (Auto) 0.4 10^3/uL (0.0-0.8) 06/17/21 20: Baso # (Auto) 0.1 10^3/uL (0.0-0.1) 06/17/21 20: Nucleated RBC % (auto) 0 % 06/17/21: Nucleated RBCs # 0.0 /100WBC 06/17/21 20:25 Sodium 139 mmol/L (136-145) 06/17/21 20:25 Potassium 3.9 mmol/L (3.5-5.1) 06/17/21 20:25 Chloride 104 mmol/L (98-107) 06/17/21 20: Carbon Dioxide 22 mmol/L (22-29) 06/17/21 20:25 Anion Gap 16.9 (5-19) 06/17/21 20:25 BUN 14 mg/dL (6-20) 06/17/21 20:25 Creatinine 0.8 mg/dL (0.7-1.2) 06/17/21 20:25 GFR Calculation 107.1 mL/min (90-130) 06/17/21 20:25 Glucose 104 mg/dL (65-115) 06/17/21 20:25 Calculated Osmolality 289 mOsm/kg (285-295) 06/17/21 20: Calcium 9.3 mg/dL (8.5-10.5) 06/17/21 20:25 Total Bilirubin 0.2 mg/dL (0.15-1.2) 06/17/21 20:25 AST 16 U/L (0-40) 06/17/21 20:25 ALT 31 U/L (0-41) 06/17/21 20:25 Alkaline Phosphatase 127 IU/L (40-130) 06/17/21: Total Protein 6.9 g/dL (6.6-8.7) 06/17/21: Albumin 4.5 g/dL (3.5-5.2) 06/17/21 20: Globulin 2.4 g/dL (1.3-4.6) 06/17/21: Lipase 34 U/L (13-60) 06/17/21 20: Urine Color Red (Yellow) 06/17/21 20: Urine Appearance Cloudy (CLEAR) 06/17/21: Urine pH 5 (5-7) 06/17/21: Ur Specific [place] 1.025 (1.005-1.030) 06/17/21: Urine Protein 3+ (Negative) H 06/17/21 20:25 Urine Glucose (UA) Norm (Normal) 06/17/21 20: Urine Ketones Negative (Negative) 06/17/21: Urine Blood 4+ (Negative) H 06/17/21 20:25 Urine Nitrate Negative (Negative) 06/17/21 20: Urine Bilirubin Neg (Negative) 06/17/21: Urine Urobilinogen Norm mg/dL (Negative) 06/17/21 20:25 Ur Leukocyte Esterase Negative (Negative) 06/17/21 20:25 Urine RBC Too numerous to cnt /hpf (0-2) H 06/17/21 20:25 Urine WBC 10-15 /hpf (0-5) H 06/17/21 20:25 Ur Squamous Epith Cells 0-4 /hpf (0-5) H 06/17/21 20:25 Calcium Oxalate Crystal 10-15 /hpf H 06/17/21 20:25 Amorphous Sediment Not Reportable 06/17/21: Urine Bacteria 1+ /hpf (NONE) H 06/17/21 20: Discharge Plan Discharge Patient Disposition: Home Clinical Impression: Renal colic on right side Hematuria Qualifiers: Hematuria type: unspecified type Qualified Code(s): R31.9 - Hematuria, unspecified Condition: Stable Prescriptions: No Action omeprazole 40 mg capsule,delayed release(DR/EC) 40 mg PO DAILY 0RF baclofen 20 mg tablet 20 mg PO TID Qty: 90 0RF isosorbide mononitrate 60 mg tablet extended release 24 hr 60 mg PO DAILY Qty: 90 2RF atorvastatin 80 mg tablet 80 mg PO BEDTIME Qty: 90 3RF metoprolol succinate 50 mg tablet extended release 24 hr 50 mg PO DAILY Qty: 90 2RF nitroglycerin 0.4 mg tablet, sublingual 0.4 mg sublingual Q5M PRN (Reason: Chest Pain) Qty: 30 6RF Rx Instructions: do not exceed 3 doses per episode gabapentin 600 mg Tablet 600 mg PO TID 0RF clopidogrel 75 mg Tablet 75 mg PO DAILY Qty: 90 4RF aspirin 81 mg Tablet,Delayed Release (Dr/Ec) 81 mg PO DAILY Qty: 30 3RF cephalexin 500 mg Capsule 500 mg PO TID 0RF duloxetine [Cymbalta] 60 mg Capsule,Delayed Release(Dr/Ec) 60 mg PO DAILY 0RF Creon 24,000-76,000 -120,000 unit Capsule,Delayed Release(Dr/Ec) 1 cap PO BID 0RF Rx Instructions: administer with meals and/or snacks Percocet 5-325 mg tablet 1 tab PO Q8H Qty: 12 0RF Discharge Orders: Discharge ED (Routine); Ordered 06/18/21 Ordered By: Pernell Olivares Referrals: Anna Roach MD [Primary Care Provider] - Discharge Diet: Regular Discharge Activity: Increase activity as tolerated Patient Instructions: Renal Colic (ED), Hematuria (ED) Activity Restrictions/Additional Instructions: Follow-up with Dr. Gonzales at your next scheduled appointment this coming June 22. Continue taking your previously prescribed pain meds as needed. Return to the ER or your medical provider if condition worsens. Please read and understand discharge instructions. Thank you for choosing [facility] for your healthcare needs today. Please realize this is an emergency room and that we are providing you with a medical screening exam and this may not be complete and all inclusive of all the testing and or work up that you may need to determine your ailment or severity of your illness. It is very important that you follow up as instructed or that you return to the Emergency Department should you have concerns or if your condi tion changes or worsens in any way. Coding Level of Care Code ED Zone Supervisor Firearms for Clair Mathew Exam Comprehensive
[2021-06-17 23:30] VITALS: BP 129/89; RESP 20; O2SAT 94
[2021-06-18 00:30] VITALS: BP 125/94; PULSE 96; RESP 20; O2SAT 98
== END 2021-06-18 00:32 | disposition home or self-care (01) ==
PROVIDERS: Emergency Medicine; Emergency Provider Physician Assistant; PCP Family Medicine
DX: N23 Unspecified renal colic (principal); R31.9 Hematuria, unspecified; Z79.82 Long term (current) use of aspirin; Z79.02 Long term (current) use of antithrombotics/antiplatelets; I25.10 Atherosclerotic heart disease of native coronary artery without angina pectoris; J44.9 Chronic obstructive pulmonary disease, unspecified; E78.5 Hyperlipidemia, unspecified; I10 Essential (primary) hypertension; F17.210 Nicotine dependence, cigarettes, uncomplicated
CPT/HCPCS: 74176; 80053; 81001; 83690; 85025; 87086; 99283

== ENCOUNTER → 2021-06-21 13:44 | Outpatient (BNVA) | payer MEDICAID, SELFPAY | PROVIDERS: PCP Family Medicine; Visit Provider Urology | DX: N23 Unspecified renal colic (principal); Z20.822 Contact with and (suspected) exposure to COVID-19 | CPT/HCPCS: 87635 ==

== ENCOUNTER 2021-06-22 06:01 | Day surgery (SDC) | payer MEDICAID, SELFPAY ==
--- NOTE | 2021-06-22 05:57 | XRR_ITS ---
PROCEDURE INFORMATION: Exam: XR Abdomen Exam date and time: 06/22/2021 6:07 AM Age: 41 years old Clinical indication: Screening exam; Other: Preop ureteroscopy; Prior surgery; Surgery type: Bilat kidney stents TECHNIQUE: Imaging protocol: XR of the abdomen. Views: Frontal supine view of the abdomen. 1 View. COMPARISON: CT kidney stone [id number] 06/17/2021 10:30 PM FINDINGS: Tubes, catheters and devices: There is calcific densities projecting over the kidney shadows bilaterally, consistent with known nonobstructing stones, the largest on the right measuring 1.7 cm. Bilateral double-J stents are in satisfactory position. Gastrointestinal tract: Normal. No bowel dilation. Organs: Cholecystectomy clips project over the right upper quadrant. Dropped gallstone is again seen projecting over the liver shadow. Bones/joints: Unremarkable. XR/XR KUB [id number] IMPRESSION: Bilateral nonobstructive kidney stones, right greater than left. Bilateral double-J stent in satisfactory position.
[2021-06-22 06:20] VITALS: BP 112/96; PULSE 91; RESP 18; TEMP 36.2; O2SAT 95
--- NOTE | 2021-06-22 07:05 | PM.MISC ---
Miscellaneous Note Purpose of Documentation: Event note Note: Patient revealed he has been off plavix for 3 weeks, because it made no sense to stop it then start it then stop it for a week. He states duarte's office as well as his bellows assembler told him it was ok to stop the plvaix for the procedure. he had a JADA placed to his LAD in apr. Chart review reveals the patient has been noncompliant in the past with this medication. Consult w/ bellows assembler electronics installer, Dr. Bradley recommends loading dose (600 mg plavix) and delay of procedure as patient is currently at very high risk of stent occlusion. Events were explained to patient.
--- NOTE | 2021-06-22 07:08 | P.MISC_ITS ---
Miscellaneous Note Purpose of Documentation: Change in surgical status Note: Patient is not on his anticoagulation medications and has not been on for at least a couple weeks despite our prior conversations about the concern for his stents. I spoke with Dr. Hernandez of Anesthesia Department who felt that the risk based on his recent stents (April 2021) was quite high for cardiac event. I believe the conversations with cardiology led to the recommendation of po stponing the case and restarting anticoagulation. The rescheduling of intervention is pending based on what is required to make his risk profile more safe. Obviously the patient is frustrated by this change of events but I emphasized to him that while he might pull it off having the surgery without cardiac complication given the face of the increased risk there would be a significant chance of cardiac morbidity that apparently can be reduced by appropriate preparation. We will look to Sunday afternoon (2 days from now) as the first option if we can develop a plan consistent with cardiology's concerns. If not we will shoot for next week on either Sunday or Sunday. The patient's or significant other was present during the conversation. All questions were answered. Today's surgery is postponed.
[2021-06-22] MEDS: clopidogrel 300 mg Tablet 600 MG PO (07:14)
--- NOTE | 2021-06-22 07:19 | PC.NURSE ---
Patients procedure canceled by anesthesia due to noncompliance of medication. IV removed and patient given oral dose of plavix. Patient then sent home.
== END 2021-06-22 07:56 | disposition home or self-care (01) ==
PROVIDERS: PCP Family Medicine; Visit Provider Urology
DX: N20.0 Calculus of kidney (principal); N23 Unspecified renal colic; Z53.8 Procedure and treatment not carried out for other reasons; Z91.14 Patient's other noncompliance with medication regimen
CPT/HCPCS: 74018

== ENCOUNTER 2021-06-24 12:40 | Day surgery (SDC) | payer MEDICAID, SELFPAY ==
[2021-06-23 16:07] VITALS: BMI 29.1
[2021-06-24] VITALS (14 sets, daily range): BP systolic 110–143; BP diastolic 55–98; PULSE 52–93; RESP 15–23; TEMP 36.6–37.1; O2SAT 92–98
--- NOTE | 2021-06-24 | SCC_ITS ---
Procedure done: 1. Cystoscopy removal of bilateral ureteral stent 2. Right: Retrograde, ureteroscopy, laser lithotripsy of right lower pole stone 3. Placement of right ureteral stent (4.7 Frisian by 30 cm double- pigtail without string) 72.6 seconds of fluoroscopic guidance, for a cumulative dose of 12.98 mGy, was provided to Dr. Gonzales by the radiology department. C-arm images of the abdomen were saved for the patient's permanent record. [facility]
--- NOTE | 2021-06-24 12:44 | SC_ITS ---
WS: [id number] Exam: C-arm FL for Urology Date/Time of Exam: 06/24/2021 12:44 PM Reason For Exam: Right renal calculus, bilateral stents A single AP limited C-arm image of the right abdomen is submitted for evaluation. A right ureteral pigtail catheter is in place. Several surgical clips in the right abdomen. The dista l end of the ureteral catheter is out of the [id number]. No other significant finding on this limi benny study.
[2021-06-24] MEDS: sodium chloride 0.9% 1,000 ML 30 ML IV (13:00)
--- NOTE | 2021-06-24 13:04 | P.ANESUD_ITS ---
Pre-Anesthetic Update Pre-Anesthetic Assessment: Date of Surgery/Procedure: 06/24/21 Preop Bailey gnosis: Bilateral ureteral stents, right renal stone Proposed Procedure: Operation Date: 06/24/21 14:15 Proposed Procedures p Cystoscopy 13930,17466,62762-07/n20.0(Not Applicable) - Hussein Gonzales MD s Laser Lithotripsy(Not Applicable) - MD hernan De Anda Retrograde Pyelogram(Not Applicable) - Hussein Gonzales MD s Ureteral Stent Placement(Not Applicable) - Hussein Gonzales MD s Ureteral Stent Removal(Not Applicable) - Hussein Gonzales MD Any changes to Pre-Anesthetic Assessment?: Yes Changes from Pre-Anesthetic Assessment: Case cancelled earlier this and loaded wit Plavix. Last Intake: Intake Last Liquid Date 06/24/21 Last Liquid Time 08:00 Last Solid Date 06/23/21 Last Solid Time 19:00 Vitals: Temperature 98.7 F 06/24/21 12:49 Temperature Source Temporal Artery S can 06/24/21 12:49 Pulse Rate 93 06/24/21 12:49 Pulse Rhythm 06/24/21 12:49 Pulse Strength 3+ Normal 06/24/21 12:49 Respiratory Rate 18 06/24/21 12:49 Blood Pressure 143/97 06/24/21 12:49 Blood Pressure Dianne n 112 06/24/21 12:49 Pulse Oximetry 96 06/24/21 12:49 Oxygen Delivery Me thod 06/24/21 12:49 Exam: Pre-Anes Outpt Exam: alert, oriented x 3, clear to auscultation bilaterally and regular rate & rhythm Cardiac Studies: No Data to Display
[2021-06-24] MEDS: HYDROmorphone 1 mg/mL INJ 1 mL 0.5 MG IVP (13:27)
--- NOTE | 2021-06-24 14:08 | P.HPUD_ITS ---
Surgery/Procedure H&P Update DATE OF PROCEDURE: June 24, 2021 DATE H&P PERFORMED: 06/02/21 H&P UPDATE INFORMATION: I have reviewed H&P completed within last 30 days, I have examined patient prior to procedure, No changes to prior documentation and H&P is in [facility] EMR on date indicated CHANGES TO PREVIOUS DOCUMENTATION: PreviousReviewed again the gnosis that led to prior stenting. Discussed the importance of passive dilation of the stent that was left in the right side. Hopefully the passive dilation has been enough to easily advance the scope up to the right ureter to access the stone in the right lower pole with flexible ureteroscopy. Procedure reviewed again. Benefits and risks discussed. He agreed to proceed as scheduled. PREOP DIAGNOSIS: Bilateral ureteral stents, right renal stone PLANNED PROCEDURE: Operation Date: 06/24/21 14:15 Proposed Procedures p Cystoscopy 58331,67526,20402-66/n20.0(Not Applicable) - Hussein Gonzales MD s Laser Lithotripsy(Not Applicable) - Hussein Gonzales MD s Retrograde Pyelogram(Not Applicable) - Hussein Gonzales MD s Ureteral Stent Placement(Not Applicable) - MD hernan De Anda Ureteral Stent Removal(Not Applicable) - Hussein Gonzales MD
--- NOTE | 2021-06-24 14:14 | P.OP_ITS ---
Operative Report Date of procedure: June 24, 2021 Pre-op diagnosis: Preop Diagnosis Bilateral ureteral stents, right renal stone Post-op diagnosis: Bilateral ureteral stents, right renal stone Procedure done: 1. Cystoscopy removal of bilateral ureteral stent 2. Right: Retrograde, ureteroscopy, laser lithotripsy of right lower pole stone 3. Placement of right ureteral stent (4.7 Moldovan by 30 cm double- pigtail without string) Pathology: Stone fragments Surgeon: Christian Anesthesia: General Urine output: Not measured Complications: None Brief History: Jovanny is a 41-year-old white male recently diagnosed with a left distal ureteral stone which was treated ureteroscopically. His primary complaint though was not left ureteral colic but rather right lower quadrant pain of unclear etiology. He was noted to have a right lower pole stone that was moderate to large in size. I could not see any evidence of obstructive phenomenon that would explain the right lower quadrant pain in relationship to the stone. Did review that there were some cases with atypical symptoms related to stones and some examples of past patients where treatment of the stone that should not be causing pain actually relieve their pain. I informed him that I did not think that there was a great chance that his pain would improve from the right lower quadrant perspective treating the stone but he wanted to proceed with that hope given the no other clear etiology had been defined. He had been postponed once because of inadequate preparation from cardiac stent perspective with anticoagulants. Procedure: After routine preoperative evaluation examination and obtaining of informed consent he was taken to the operating suite on 06/24/2021 where general anesthesia was administered without difficulty after appropriate timeout was performed, SCDs confirmed to be functioning, preoperative antibiotics administered, beta-patrick protocol confirmed. Prepped and draped in usual sterile fashion in dorsolithotomy position paying careful attention to avoiding pressure points. 21 Moldovan cystoscope with 30 degree lens was introduced into the urethra meatus and advanced into the bladder under videoscopy. Bladder was systematically examined. Stents in appropriate position. A flexible tip guidewire was advanced up the right ureter next to the stent without difficulty and the stent was seen to curl in the area of the upper pole calyx. The stent was then grasped with grasping forceps and was removed without difficulty. A second guidewire was then passed without difficulty. The first wire was secured to the drapes as a safety wire and the second wire was used as a working wire. The flexible ureteroscope was advanced over the working wire up into the kidney and the wire was removed. The calyces were carefully inspected and the stone was found in its expected position in the right lower pole. There was a large amount of old blood and clots that were flushed through the scope in order to improve visualization. The initial urine output from the bladder and from the collecting system was old blood. A 200 ?m thulium superpulse laser fiber was utilized to fragment the right lower pole stone with combination of dusting and fragmentation technique with good change. After about half the stone was fragmented the fiber was changed to 365 thulium fiber for some of the harder portion of the stone. The final fragments were treated with the 200 ?m fiber. At the completion I could no longer see any large fragments. Most of what was identified was very small sand-like material with some smaller chunks. All that it was visualized was felt to be likely passable. The scope was removed with visualization of the ureter which was showed to be intact. The cystoscope was backloaded over the safety wire and a 6 Moldovan by 28 cm double-pigtail stent was advanced over the guidewire through the cystoscope into appropriate position as confirmed via fluoroscopy and cystoscopy. There was still some old sediment and blood clots in the bladder which were flushed free. The left ureteral stent was grasped with grasping forceps and removed without difficulty paying careful attention to avoid catching the right ureteral stent. Final inspection showed no residual clot blood or fragments in the bladder. Bladder was drained and the procedure was completed. No Andre catheter. Tolerated procedure well without complications and was awakened in the operating room and returned to the recovery room in stable condition. PLANS: 1. Maintain ureteral stent on the right side. 2. Follow-up KUB in 2 weeks to determine if there are any residual fragments too large to pass that were not visualized endoscopically.
[2021-06-24] MEDS: levofloxacin-dextrose 5 % 500 MG/100 ML PREMIX 100 MG IV (14:25)
[2021-06-24] MEDS: iohexol 300 mg/mL 50 mL Btl (OR ONLY) XX (14:49)
[2021-06-24] MEDS: ondansetron 2 mg/ML SDV 2 mL 4 MG IVP ×2 (17:20→18:22)
[2021-06-24] MEDS: fentaNYL 50 mcg/mL INJ 2mL IVP ×2 (17:24→17:29)
--- NOTE | 2021-06-24 17:45 | ANE.PACU2 ---
Inpatient post-anesthesia follow up: Airway intact: Yes Vital signs: Temperature 97.9 F Pulse Rate 57 Respiratory Rate 22 Blood Pressure 134/87 Pulse Oximetry 93 Oxygen Delivery Me thod Room Air Oxygen Flow Rate 7 Fraction of Inspir ed Oxygen Hydration adequate: Yes Nausea and vomiting: No Pain level: 3 Mental status: Baseline
[2021-06-24] MEDS: diphenhydrAMINE 50 mg/mL SDV 1mL 12.5 MG IVP (18:06)
[2021-06-24] MEDS: HYDROcodone-acetaminophen 5-325 mg Tablet 1 TAB PO (18:22)
== END 2021-06-24 18:48 | disposition home or self-care (01) ==
PROVIDERS: PCP Family Medicine; Visit Provider Urology
PROC: 0TJB8ZZ Inspection of Bladder, Via Natural or Artificial Opening Endoscopic (ICD-10-PCS; CPT 52000; principal; 2021-06-24 14:05)
PROC: (CPT 52356; 2021-06-24 14:05)
PROC: (CPT 50605; 2021-06-24 14:05)
PROC: (CPT 52310; 2021-06-24 14:05)
PROC: 0TJ98ZZ Inspection of Ureter, Via Natural or Artificial Opening Endoscopic (ICD-10-PCS; CPT 52351; 2021-06-24 14:05)
DX: N20.2 Calculus of kidney with calculus of ureter (principal); Z79.82 Long term (current) use of aspirin; J44.9 Chronic obstructive pulmonary disease, unspecified; F32.9 Major depressive disorder, single episode, unspecified; E78.5 Hyperlipidemia, unspecified; Z95.5 Presence of coronary angioplasty implant and graft; F17.210 Nicotine dependence, cigarettes, uncomplicated
CPT/HCPCS: 52356; 76000; C2625; J0330; J1170; J1200; J1956; J2250; J2405; J2704; J2710; J3010; J3490; J7030

== ENCOUNTER 2021-07-08 07:32 | Outpatient (CLI) | payer MEDICAID, SELFPAY ==
--- NOTE | 2021-07-08 07:30 | XR_ITS ---
WS: [id number] XR KUB [id number] REASON FOR EXAM: stones FINDINGS: Right ureteral stent unchanged compared to 06/22/2021. Only a small remnant density is seen in the lower pole of the right kidney were the large calculus wa s previously demonstrated on 06/22/2021. Calculus fragments are seen along the right ureteral stent near the ureteral vesicle junction. The left ureteral stent has been removed. No calculi are identified overlying the left kidney. No calculi along the course of the left ureter identified. No other significant abnormality. XR/XR KUB [id number] IMPRESSION: Right ureteral stent with right renal and distal right ureteral calculus fragme nts.
== END 2021-07-08 07:33 | disposition home or self-care (01) ==
LOC: RAD 07:33
PROVIDERS: PCP Family Medicine; Visit Provider Urology
DX: N20.0 Calculus of kidney (principal); Z96.0 Presence of urogenital implants
CPT/HCPCS: 74018

== ENCOUNTER 2021-10-04 22:49 | Emergency (ER) | payer MEDICAID, SELFPAY ==
[2021-10-04 22:52] VITALS: BP 133/87; PULSE 79; RESP 18; TEMP 36.8; O2SAT 96; BMI 28.5
--- NOTE | 2021-10-04 22:52 | XRR_ITS ---
PROCEDURE INFORMATION: Exam: XR Chest Exam date and time: 10/04/2021 10:59 PM Age: 41 years old Clinical indication: Chest wall pain; Prior surgery; Surgery date: 6+ months; Surgery type: Esophagus, and cardiac stents; Patient HX: Esophageal and colon cancer; Additional info: Chest pain TECHNIQUE: Imaging protocol: Radiologic exam of the chest. Views: 1 view. COMPARISON: CR (CHEST, ) 05/22/2021 9:58 PM FINDINGS: Lungs: There is some focal scarring or subsegmental atelectasis at the left lung base. Pleural spaces: Unremarkable. No pleural effusion. No pneumothorax. Heart/Mediastinum: Heart is within normal limits of size. Bones/joints: There are mild degenerative changes in the thoracic spine. XR/XR chest 1V portable [id number] IMPRESSION: No acute infiltrate.
--- NOTE | 2021-10-04 22:52 | ECG_ITS ---
[facility] Test Date: 2021-10-04 Pat Name: Jovanny Rico Department: Room: Gender: Male Communications Advisor: : 1980 Requested By: Oscar Mejia Order Number: [id number] Jody MD: Spenser Carrillo M.D. Measurements Intervals [place] Rate: 83 P: 10 [place]: 152 QRS: 27 QRSD: 101 T: 30 QT: 357 QTc: 421 Interpretive Statements SINUS RHYTHM NONSPECIFIC T-WAVE ABNORMALITY Compared to ECG 05/22/2021 23:51:06 No significant changes Electronically Signed On 10-05-2021 17:56:32 CDT by Spenser Carrillo M.D. [id number] f
--- NOTE | 2021-10-04 23:34 | W.ED.CHESTPA ---
HPI - Chest Pain General: Chief Complaint: Chest Pain Stated Complaint: Chest Pain Time Seen by Provider: 10/04/21 22:52 Source: patient Mode of arrival: ambulatory Limitations: no limitations History of Present Illness: 41-year-old male has a history of coronary artery disease states that has been having chest pain over the last hour and a half. States that sharp pain in the center of his chest with some radiation to his arm denies any shortness of breath states pain a 5 out of 10 denies any vomiting or diaphoresis. Denies any worsening improving factors. Associated symptoms: Deny abdominal pain, dyspnea, fever(s), nausea or vomiting Review of Systems Const: Denies: fever(s), chills, body aches or change in appetite Eyes: Denies: blurry vision or eye discomfort ENMT: Denies: throat pain or dental pain Card: Reports: chest pain Resp: Denies: dyspnea GI: Denies: abdominal pain, nausea, vomiting or diarrhea : Denies: dysuria Musc: Denies: neck pain or back pain Skin/Breast: Denies: rash Neuro: Denies: headache(s) Psych: Denies: depression Anjum/Lymph: Denies: easy bruising All/Imm: Denies: urticaria PFSH ED PFSH: Medical History Aorta aneurysm Atherosclerosis of coronary artery COPD (chronic obstructive pulmonary disease) Depression Dyslipidemia Gastroesophageal reflux disease Gross hematuria HTN (hypertension) Presence of stent in LAD coronary artery Surgical History H/O colonoscopy with polypectomy History of cholecystectomy Hx of heart artery stent Family History Father Heart disease Alcoholic Lung disease Mother Healthy adult Social History Smoking and tobacco status: current every day smoker cigarettes Packs smoked per day: 0.5 Years cigarettes smoked: 20 Alcohol intake: current Alcohol intake frequency: holidays/special occasions only Marital status: Current occupational status: unemployed History of recent travel: No Physical Exam Const: COMMON NORMALS: no acute distress, patient oriented x3 and healthy appearing HENMT: COMMON NORMALS: normocephalic and atraumatic HEAD & SCALP: normocephalic and atraumatic Eye: COMMON NORMALS: Equal, round and reactive pupils present and EOMs intact bilaterally PUPIL: Yes Equal, round and reactive pupils present Neck/C-Spine: COMMON NORMALS: full ROM and supple Chest: COMMONS NORMALS: normal inspection of the chest and normal palpation of entire chest wall Resp: COMMON NORMALS: normal respiratory effort, No retractions, No use of accessory muscles and clear to auscultation bilaterally AUSCULTATION: clear to auscultation bilaterally Cardio: COMMON NORMALS: regular rate, regular rhythm and No murmurs present (Cardio) RATE: regular rate RHYTHM: regular rhythm GI: COMMON NORMALS: Normal to inspection, nondistended, normoactive bowel sounds present, Soft to palpation, non-tender and no masses PALPATION: Yes Soft to palpation Extremity: COMMON NORMALS: normal to inspection and full ROM Neuro: COMMON NORMALS: patient oriented x3, moves all extremities and no focal motor deficits Psych: COMMON NORMALS: mental status grossly normal, Normal thought process present and cooperative THOUGHT PROCESS: Normal thought process present Skin: COMMON NORMALS: no rashes or lesions noted and no wounds GENERAL SKIN EXAM: no rashes or lesions noted Course Vital Signs: Vital signs: Vital Signs Temperature 98.3 F 10/04/21 22:52 Pulse Rate 79 10/04/21 22:52 Respiratory Rate 18 10/05/21 00:01 Blood Pressure 133/87 10/04/21 22:52 Pulse Oximetry 99 10/05/21 00:01 MDM - Chest Pain Medical Decision Making Patient presents for chest pains atypical in nature his initial and repeat troponin here negative. 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 Lab Data : 10/05/21 00:05 10/05/21 00:05 Radiology Impressions Chest X-Ray 10/04/21 22:52 IMPRESSION: No acute infiltrate. Laboratory Results WBC 9.5 10^3/uL (4.0-10.0) 10/05/21 00:05 RBC 4.75 10^6/uL (4.1-5.3) 10/05/21 00:05 Hgb 14.7 g/dL (11.7-16.6) 10/05/21 00:05 Hct 42.8 % (42.0-52.0) 10/05/21 00:05 MCV 90.1 fl (80-94) 10/05/21 00:05 MCH 30.9 pg (28.0-34.0) 10/05/21 00:05 MCHC 34.3 g/dL (30.0-36.0) 10/05/21 00:05 RDW 13.2 % (12.1-15.1) 10/05/21 00:05 Plt Count 250 10^3/cmm (130-400) 10/05/21 00:05 MPV 10.1 fL (7.4-10.4) 10/05/21 00:05 Neut % (Auto) 54.1 % 10/05/21 00:05 Lymph % (Auto) 32.4 % 10/05/21 00:05 [place] % (Auto) 8.9 % 10/05/21 00:05 Eos % (Auto) 3.5 % 10/05/21 00:05 Baso % (Auto) 0.8 % 10/05/21 00:05 Neut # (Auto) 5.16 10^3/uL (1.8-7.7) 10/05/21 00:05 Lymph # (Auto) 3.1 10^3/uL (0.8-4.8) 10/05/21 00:05 [place] # (Auto) 0.9 10^3/uL (0.2-0.9) 10/05/21 00:05 Eos # (Auto) 0.3 10^3/uL (0.0-0.8) 10/05/21 00:05 Baso # (Auto) 0.1 10^3/uL (0.0-0.1) 10/05/21 00:05 Nucleated RBC % (auto) 0 % 10/05/21 00:05 Nucleated RBCs # 0.0 /100WBC 10/05/21 00:05 Sodium 142 mmol/L (136-145) 10/05/21 00:05 Potassium 4.0 mmol/L (3.5-5.1) 10/05/21 00:05 Chloride 105 mmol/L (98-107) 10/05/21 00:05 Carbon Dioxide 24 mmol/L (22-29) 10/05/21 00:05 Anion Gap 17.0 (5-19) 10/05/21 00:05 BUN 10 mg/dL (6-20) 10/05/21 00:05 Creatinine 0.6 mg/dL (0.7-1.2) L 10/05/21 00:05 GFR Calculation 149.2 mL/min (90-130) H 10/05/21 00:05 Glucose 94 mg/dL (65-115) 10/05/21 00:05 Calculated Osmolality 293 mOsm/kg (285-295) 10/05/21 00:05 Calcium 9.0 mg/dL (8.5-10.5) 10/05/21 00:05 Total Bilirubin 0.2 mg/dL (0.15-1.2) 10/05/21 00:05 AST 21 U/L (0-40) 10/05/21 00:05 ALT 38 U/L (0-41) 10/05/21 00:05 Alkaline Phosphatase 126 IU/L (40-130) 10/05/21 00:05 Troponin T Baseline 8 ng/L (0-15) 10/05/21 00:05 Troponin T 120 Minute 7.16 ng/L (0-15) 10/05/21 02:00 Total Protein 6.7 g/dL (6.6-8.7) 10/05/21 00:05 Albumin 4.2 g/dL (3.5-5.2) 10/05/21 00:05 Globulin 2.5 g/dL (1.3-4.6) 10/05/21 00:05 Lipase 29 U/L (13-60) 10/05/21 00:05 EKG Data EKG 1: I personally reviewed and interpreted this EKG as follows: EKG interpretation date: 10/04/21 EKG interpretation time: 22:57 Interpretation: nsr hr [address] or t wave abnormalities qrs 100 qtc 435 EKG 2: I personally reviewed and interpreted this EKG as follows: EKG interpretation date: 10/05/21 EKG interpretation time: 01:26 Interpretation: sinus zane hr 54 qrs 96 qtc 369 Discharge Plan Discharge Patient Disposition: Home Clinical Impression: Chest pain Qualifiers: Chest pain type: unspecified Qualified Code(s): R07.9 - Chest pain, unspecified Condition: Stable Prescriptions: No Action isosorbide mononitrate 60 mg tablet extended release 24 hr 60 mg PO DAILY Qty: 90 2RF atorvastatin 80 mg tablet 80 mg PO BEDTIME Qty: 90 3RF metoprolol succinate 50 mg tablet extended release 24 hr 50 mg PO DAILY Qty: 90 2RF nitroglycerin 0.4 mg tablet, sublingual 0.4 mg sublingual Q5M PRN (Reason: Chest Pain) Qty: 30 6RF Rx Instructions: do not exceed 3 doses per episode baclofen 20 mg tablet 20 mg PO TID Qty: 90 3RF gabapentin 600 mg tablet 600 mg PO TID 30 Days Qty: 90 2RF omeprazole 40 mg capsule,delayed release(DR/EC) 40 mg PO DAILY 90 Days Qty: 90 3RF duloxetine [Cymbalta] 60 mg capsule,delayed release(DR/EC) 60 mg PO DAILY 90 Days Qty: 90 1RF aspirin 81 mg tablet,delayed release (DR/EC) 81 mg PO DAILY 90 Days Qty: 90 3RF levofloxacin 500 mg tablet 500 mg PO DAILY 3 Days Qty: 3 0RF clopidogrel 75 mg Tablet 75 mg PO DAILY Qty: 90 4RF Discharge Orders: Discharge ED (Routine); Ordered 10/05/21 Ordered By: Oscar Mejia Referrals: Anna Roach MD [Primary Care Provider] - Discharge Diet: Advance as tolerated Discharge Activity: Resume usual activity Patient Instructions: Chest Pain (ED) Coding Level of Care Code ED Facilities Operations Technician for Clair Fwd Exam Comprehensive
[2021-10-05 00:01] VITALS: RESP 18; O2SAT 99
[2021-10-05] MEDS: morphine 4 mg/mL SDV 1 mL IVP (00:01)
[2021-10-05 00:11] LABS: Basophils # 0.1 10^3/uL (0.0-0.1); Basophils % 0.8 %; Eosinophils # 0.3 10^3/uL (0.0-0.8); Eosinophils % 3.5 %; Hematocrit 42.8 % (42.0-52.0); Hemoglobin 14.7 g/dL (11.7-16.6); Lymphocytes # 3.1 10^3/uL (0.8-4.8); Lymphocytes % 32.4 %; Mean Corpuscular HGB Conc 34.3 g/dL (30.0-36.0); Mean Corpuscular Hemoglobin 30.9 pg (28.0-34.0); Mean Corpuscular Volume 90.1 fl (80-94); Mean Platelet Volume 10.1 fL (7.4-10.4); Monocytes # 0.9 10^3/uL (0.2-0.9); Monocytes % 8.9 %; Neutrophils # 5.16 10^3/uL (1.8-7.7); Neutrophils % 54.1 %; Nucleated Red Blood Cells % 0 %; Platelet Count 250 10^3/cmm (130-400); Red Blood Count 4.75 10^6/uL (4.1-5.3); Red Cell Distribution Width 13.2 % (12.1-15.1); White Blood Count 9.5 10^3/uL (4.0-10.0)
[2021-10-05] MEDS: ondansetron 2 mg/ML SDV 2 mL 4 MG IVP (00:30)
[2021-10-05 00:31] LABS: Alanine Aminotransferase 38 U/L (0-41); Albumin Level 4.2 g/dL (3.5-5.2); Alkaline Phosphatase 126 IU/L (40-130); Aspartate Amino Transferase 21 U/L (0-40); Blood Urea Nitrogen 10 mg/dL (6-20); Carbon Dioxide 24 mmol/L (22-29); Chloride 105 mmol/L (98-107); Globulin 2.5 g/dL (1.3-4.6); Glomerular Filtration Rate 149.2 mL/min (90-130); Glucose 94 mg/dL (65-115); Lipase 29 U/L (13-60); Osmolality Calculated 293 mOsm/kg (285-295); Sodium 142 mmol/L (136-145); Total Bilirubin 0.2 mg/dL (0.15-1.2); Total Protein 6.7 g/dL (6.6-8.7)
[2021-10-05 00:32] LABS: Troponin(5th) Baseline 8 ng/L (0-15)
--- NOTE | 2021-10-05 00:52 | ECG_ITS ---
[facility] Test Date: 2021-10-05 Pat Name: Jovanny Rico Department: Room: Gender: Male End Finder Forming Department: : 1980 Requested By: Oscar Mejia Order Number: [id number] Jody MD: Spenser Carrillo M.D. Measurements Intervals [place] Rate: 54 P: 11 SD: 168 QRS: 36 QRSD: 96 T: 30 QT: 383 QTc: 364 Interpretive Statements SINUS BRADYCARDIA NONSPECIFIC T-WAVE ABNORMALITY Compared to ECG 05/22/2021 23:51:06 Sinus rhythm no longer present T-wave abnormality still present Electronically Signed On 10-05-2021 18:01:15 CDT by Spenser Carrillo M.D. [id number]
--- NOTE | 2021-10-05 01:29 | PC.NURSE ---
EKG done at 0125 and shown to ER doctor
[2021-10-05 02:31] LABS: Troponin 5 2HR 7.16 ng/L (0-15)
[2021-10-05 03:03] LABS: Troponin 5 2HR Delta -0.84 ABS# (0-10)
[2021-10-05 03:32] VITALS: BP 101/71; PULSE 71; RESP 18; TEMP 37.1; O2SAT 98
== END 2021-10-05 03:34 | disposition home or self-care (01) ==
PROVIDERS: Emergency Provider Emergency Medicine; PCP Family Medicine
DX: R07.9 Chest pain, unspecified (principal); I10 Essential (primary) hypertension; I25.10 Atherosclerotic heart disease of native coronary artery without angina pectoris; Z79.82 Long term (current) use of aspirin
CPT/HCPCS: 71045; 80053; 83690; 84484; 85025; 93005; 96374; 96375; 99285; J2270; J2405

== ENCOUNTER 2021-10-11 21:00 | Emergency (ER) | payer MEDICAID, SELFPAY ==
--- NOTE | 2021-10-11 21:02 | XRR_ITS ---
PROCEDURE INFORMATION: Exam: XR Chest Exam date and time: 10/11/2021 9:21 PM Age: 41 years old Clinical indication: Pain; Other: Mid; Prior surgery; Surgery type: Stents; Additional info: Cp TECHNIQUE: Imaging protocol: Radiologic exam of the chest. Views: 1 view. COMPARISON: CR (CHEST, ) 10/04/2021 10:59 PM FINDINGS: Lungs: Mild atelectasis in the left lung base. The right lung is clear. Pleural spaces: Unremarkable. No pleural effusion. No pneumothorax. Heart/Mediastinum: Unremarkable. No cardiomegaly. Diaphragm: Mild chronic elevation of the left diaphragm. Bones/joints: Unremarkable. XR/XR chest 1V portable [id number] IMPRESSION: No acute finding.
[2021-10-11 21:16] VITALS: BP 143/87; PULSE 96; RESP 16; TEMP 36.7; O2SAT 95
[2021-10-11 21:24] LABS: Basophils # 0.1 10^3/uL (0.0-0.1); Basophils % 0.7 %; Eosinophils # 0.3 10^3/uL (0.0-0.8); Eosinophils % 2.8 %; Hematocrit 46.2 % (42.0-52.0); Hemoglobin 15.4 g/dL (11.7-16.6); Lymphocytes # 3.4 10^3/uL (0.8-4.8); Lymphocytes % 36.7 %; Mean Corpuscular HGB Conc 33.3 g/dL (30.0-36.0); Mean Corpuscular Hemoglobin 30.6 pg (28.0-34.0); Mean Corpuscular Volume 91.8 fl (80-94); Monocytes # 0.9 10^3/uL (0.2-0.9); Monocytes % 9.5 %; Neutrophils # 4.67 10^3/uL (1.8-7.7); Neutrophils % 49.9 %; Nucleated Red Blood Cells % 0 %; Platelet Count 268 10^3/cmm (130-400); Red Blood Count 5.03 10^6/uL (4.1-5.3); Red Cell Distribution Width 13.4 % (12.1-15.1); White Blood Count 9.4 10^3/uL (4.0-10.0)
--- NOTE | 2021-10-11 21:25 | W.ED.CHESTPA ---
HPI - Chest Pain General: Chief Complaint: Chest Pain Stated Complaint: cp Time Seen by Provider: 10/11/21 21:02 History of Present Illness: Patient is a 41-year-old male comes to the ED with chest pain. Patient was seen here in the ED for same complaint back on October 04. patient says chest pain started at rest today approximately an hour before arrival to the ED. Patient took 2 nitros at home before coming to the ED. He states he has on and off chest pain daily for the past several weeks. His chest pain is located in the of the chest and he rates it currently a 9 out of 10. Denies any worsening or improving factors. Endorses some nausea. Denies any shortness of breath, abdominal pain, vomiting, bladder or bowel symptoms. Associated symptoms: Deny abdominal pain, dyspnea, fever(s), nausea, palpitations or vomiting Review of Systems Const: Denies: fever(s), chills or fatigue Eyes: Denies: change in vision or eye discomfort ENMT: Denies: throat pain, odynophagia, nasal discharge or nasal congestion Card: Reports: chest pain; Denies: palpitations, edema, swelling of feet/ankles, dyspnea on exertion or orthopnea Resp: Denies: dyspnea, productive cough or non-productive cough GI: Denies: abdominal pain, nausea, vomiting, diarrhea, constipation or hematochezia : Denies: flank pain, difficulty urinating, dysuria or hematuria Musc: Denies: neck pain, back pain or extremity swelling Skin/Breast: Denies: rash or new lesions Neuro: Denies: headache(s), numbness in extremities or weakness in extremities PFS ED PFSH: Medical History (Reviewed 10/13/21 @ 09: by Hussein Gonzales MD) Aorta aneurysm Atherosclerosis of coronary artery COPD (chronic obstructive pulmonary disease) Depression Dyslipidemia Gastroesophageal reflux disease Gross hematuria HTN (hypertension) Presence of stent in LAD coronary artery Urolithiasis Surgical History (Reviewed 10/13/21 @ 09: by Hussein Gonzales MD) H/O colonoscopy with polypectomy History of cholecystectomy Hx of heart artery stent S/P ureteral stent placement Status post laser lithotripsy of ureteral calculus Family History (Reviewed 10/13/21 @ 09: by Hussein Gonzales MD) Father Heart disease Alcoholic Lung disease Mother Healthy adult Social History Smoking and tobacco status: current every day smoker cigarettes Packs smoked per day: 0.5 Years cigarettes smoked: 20 Alcohol intake: current Alcohol intake frequency: holidays/special occasions only Marital status: Current occupational status: unemployed History of recent travel: No Physical Exam Const: COMMON NORMALS: no acute distress, patient oriented x3 and alert GENERAL APPEARANCE: cooperative and comfortable HENMT: COMMON NORMALS: normocephalic HEAD & SCALP: normocephalic MOUTH: Normal oral and palatal mucosa present THROAT: posterior oropharynx normal and uvula midline Neck/C-Spine: COMMON NORMALS: supple GENERAL: Yes normal visual inspection Resp: COMMON NORMALS: normal respiratory effort, No retractions, No use of accessory muscles and clear to auscultation bilaterally AUSCULTATION: clear to auscultation bilaterally Cardio: COMMON NORMALS: regular rate, regular rhythm, S1 normal heart sound present, S2 normal heart sound present, No gallops present (Cardio), No clicks present (Cardio), No murmurs present (Cardio) and Peripheral pulses 2+ throughout RATE: regular rate RHYTHM: regular rhythm HEART SOUNDS: S1 normal heart sound present and S2 normal heart sound present PERIPHERAL PULSES: Peripheral pulses 2+ throughout GI: COMMON NORMALS: Normal to inspection, nondistended, normoactive bowel sounds present, Soft to palpation, non-tender and no masses PALPATION: Yes Soft to palpation : COMMON NORMALS: Yes no CVA tenderness BLADDER/KIDNEY EXAM: Yes no CVA tenderness Back/Pelvis: COMMON NORMALS: no CVA tenderness Extremity: COMMON NORMALS: normal to inspection and no pedal edema Neuro: COMMON NORMALS: patient oriented x3 and moves all extremities SENSORIUM/ORIENTATION: Yes alert Skin: GENERAL SKIN EXAM: dry skin Course Vital Signs: Vital signs: Vital Signs Temperature 98.0 F 10/11/21 21:16 Pulse Rate 78 10/11/21 22:30 Respiratory Rate 18 10/11/21 22:30 Blood Pressure 130/68 10/11/21 22:30 Pulse Oximetry 90 10/11/21 22:30 MDM - Chest Pain Medical Decision Making Patient is a 41-year-old male comes to the ED with chest pain. Patient was seen here in the ED for same complaint back on October 04. patient says chest pain started at rest today approximately an hour before arrival to the ED. Patient took 2 nitros at home before coming to the ED. He states he has on and off chest pain daily for the past several weeks. His chest pain is located in the of the chest and he rates it currently a 9 out of 10. Vital signs stable. Exam is benign. Labs are unremarkable. Troponin negative. EKG showed no acute findings. Chest x-ray showed no acute findings. Patient's symptoms improved after morphine and Ativan here in the ED. Patient diagnosed with chest pain and was discharged home. Told to follow-up with PCP at next scheduled appointment. Return to ED precautions given. Patient understood and agreed with plan. Lab Data I reviewed the patient's lab results. : 10/11/21 21:20 10/11/21 21: Radiology Impressions Chest X-Ray 10/11/21 21:02 IMPRESSION: No acute finding. Laboratory Results WBC 9.4 10^3/uL (4.0-10.0) 10/11/21 21: RBC 5.03 10^6/uL (4.1-5.3) 10/11/21 21:20 Hgb 15.4 g/dL (11.7-16.6) 10/11/21 21: Hct 46.2 % (42.0-52.0) 10/11/21 21: MCV 91.8 fl (80-94) 10/11/21 21:20 MCH 30.6 pg (28.0-34.0) 10/11/21 21: MCHC 33.3 g/dL (30.0-36.0) 10/11/21: RDW 13.4 % (12.1-15.1) 10/11/21 21: Plt Count 268 10^3/cmm (130-400) 10/11/21 21: MPV 10.0 fL (7.4-10.4) 10/11/21: Neut % (Auto) 49.9 % 10/11/21 21:20 Lymph % (Auto) 36.7 % 10/11/21 21:20 [place] % (Auto) 9.5 % 10/11/21: Eos % (Auto) 2.8 % 10/11/21: Baso % (Auto) 0.7 % 07/12/22 21:20 Neut # (Auto) 4.67 10^3/uL (1.8-7.7) 10/11/21 21:20 Lymph # (Auto) 3.4 10^3/uL (0.8-4.8) 10/11/21 21:20 [place] # (Auto) 0.9 10^3/uL (0.2-0.9) 10/11/21 21:20 Eos # (Auto) 0.3 10^3/uL (0.0-0.8) 10/11/21 21:20 Baso # (Auto) 0.1 10^3/uL (0.0-0.1) 10/11/21 21:20 Nucleated RBC % (auto) 0 % 10/11/21 21:20 Nucleated RBCs # 0.0 /100WBC 10/11/21 21:20 Sodium 141 mmol/L (136-145) 10/11/21 21:20 Potassium 3.8 mmol/L (3.5-5.1) 10/11/21 21:20 Chloride 104 mmol/L (98-107) 10/11/21 21:20 Carbon Dioxide 23 mmol/L (22-29) 10/11/21 21:20 Anion Gap 17.8 (5-19) 10/11/21 21:20 BUN 12 mg/dL (6-20) 10/11/21 21:20 Creatinine 0.8 mg/dL (0.7-1.2) 10/11/21 21:20 GFR Calculation 107.1 mL/min (90-130) 10/11/21 21:20 Glucose 103 mg/dL (65-115) 10/11/21 21:20 Calculated Osmolality 292 mOsm/kg (285-295) 10/11/21 21:20 Calcium 9.4 mg/dL (8.5-10.5) 10/11/21 21:20 Total Bilirubin 0.2 mg/dL (0.15-1.2) 10/11/21 21:20 AST 16 U/L (0-40) 10/11/21 21:20 ALT 26 U/L (0-41) 10/11/21 21:20 Alkaline Phosphatase 132 IU/L (40-130) H 10/11/21 21:20 Troponin T Baseline 8 ng/L (0-15) 10/11/21 21:20 Total Protein 7.0 g/dL (6.6-8.7) 10/11/21 21:20 Albumin 4.5 g/dL (3.5-5.2) 10/11/21 21:20 Globulin 2.5 g/dL (1.3-4.6) 10/11/21 21:20 EKG Data EKG 1: EKG interpretation date: 10/11/21 Interpretation: Sinus rhythm, no ST segment elevation or depression seen. 89 bpm. Discharge Plan Discharge Patient Disposition: Home Clinical Impression: Chest pain Condition: Stable Prescriptions: No Action nitroglycerin 0.4 mg tablet, sublingual 0.4 mg sublingual Q5M PRN (Reason: Chest Pain) Qty: 30 6RF Rx Instructions: do not exceed 3 doses per episode omeprazole 40 mg capsule,delayed release(DR/EC) 40 mg PO DAILY 90 Days Qty: 90 3RF aspirin 81 mg tablet,delayed release (DR/EC) 81 mg PO DAILY 90 Days Qty: 90 3RF metoprolol succinate 50 mg tablet extended release 24 hr 50 mg PO DAILY Qty: 90 2RF isosorbide mononitrate 60 mg tablet extended release 24 hr 60 mg PO DAILY Qty: 90 2RF gabapentin 600 mg tablet 600 mg PO TID 30 Days Qty: 90 2RF duloxetine [Cymbalta] 60 mg capsule,delayed release(DR/EC) 60 mg PO DAILY 90 Days Qty: 90 1RF clopidogrel 75 mg tablet 75 mg PO DAILY Qty: 90 4RF atorvastatin 80 mg tablet 80 mg PO BEDTIME Qty: 90 3RF Discharge Orders: Discharge ED (Routine); Ordered 10/11/21 Ordered By: Pernell Olivares Referrals: Anna Roach MD [Primary Care Provider] - Discharge Diet: Regular Discharge Activity: Increase activity as tolerated Patient Instructions: Chest Pain (ED) Activity Restrictions/Additional Instructions: Follow-up with medical provider as directed. Continue taking all medications as previously prescribed. Return to the ER or your medical provider if condition worsens. Please read and understand discharge instructions. Thank you for choosing [facility] for your healthcare needs today. Please realize this is an emergency room and that we are providing you with a medical screening exam and this may not be complete and all inclusive of all the testing and or work up that you may need to determine your ailment or severity of your illness. It is very important that you follow up as instructed or that you return to the Emergency Department should you have concerns or if your condition changes or worsens in any way. Coding Level of Care Code ED Piano Refinisher for Clair Mathew Exam Comprehensive
[2021-10-11] MEDS: morphine 4 mg/mL SDV 1 mL IVP (21:27)
[2021-10-11] MEDS: ondansetron 2 mg/ML SDV 2 mL 4 MG IVP (21:27)
[2021-10-11 21:46] LABS: Alanine Aminotransferase 26 U/L (0-41); Albumin Level 4.5 g/dL (3.5-5.2); Alkaline Phosphatase 132 IU/L (40-130); Anion Gap 17.8 (5-19); Aspartate Amino Transferase 16 U/L (0-40); Blood Urea Nitrogen 12 mg/dL (6-20); Calcium 9.4 mg/dL (8.5-10.5); Carbon Dioxide 23 mmol/L (22-29); Chloride 104 mmol/L (98-107); Globulin 2.5 g/dL (1.3-4.6); Glomerular Filtration Rate 107.1 mL/min (90-130); Glucose 103 mg/dL (65-115); Osmolality Calculated 292 mOsm/kg (285-295); Potassium 3.8 mmol/L (3.5-5.1); Sodium 141 mmol/L (136-145); Total Bilirubin 0.2 mg/dL (0.15-1.2)
[2021-10-11] MEDS: aspirin 81 mg Chew Tablet 324 MG PO (21:46)
[2021-10-11 21:47] LABS: Troponin(5th) Baseline 8 ng/L (0-15)
[2021-10-11 22:19] VITALS: BP 143/87; PULSE 81; RESP 22; O2SAT 90
[2021-10-11] MEDS: LORazepam 1 mg Tablet PO (22:27)
[2021-10-11 22:30] VITALS: BP 130/68; PULSE 78; RESP 18; O2SAT 90
--- NOTE | 2021-10-11 23:02 | ECG_ITS ---
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 Measurements Intervals [place] Rate: 89 P: 34 MI: 159 QRS: 45 QRSD: 94 T: 51 QT: 327 QTc: 400 Interpretive Statements SINUS RHYTHM NONSPECIFIC T-WAVE ABNORMALITY Compared to ECG 10/05/2021 01:26:18 Sinus bradycardia no longer present T-wave abnormality still present Electronically Signed On 10-11-2021 21:57:26 CDT by Spenesr Carrillo M.D. [email or web address] [id number]
== END 2021-10-11 23:50 | disposition home or self-care (01) ==
PROVIDERS: Emergency Medicine; Emergency Provider Physician Assistant; PCP Family Medicine
DX: R07.9 Chest pain, unspecified (principal); Z79.82 Long term (current) use of aspirin; Z79.02 Long term (current) use of antithrombotics/antiplatelets; J44.9 Chronic obstructive pulmonary disease, unspecified; E78.5 Hyperlipidemia, unspecified; I10 Essential (primary) hypertension; F17.210 Nicotine dependence, cigarettes, uncomplicated
CPT/HCPCS: 71045; 80053; 84484; 85025; 93005; 96374; 96375; 99285; J2270; J2405

== ENCOUNTER 2021-10-13 08:41 | Outpatient (CLI) | payer MEDICAID, SELFPAY ==
--- NOTE | 2021-10-13 09:30 | XR_ITS ---
WS: [id number] KUB, AP view, 10/13/2021 Clinical Data: staghorn calculus Comparison: KUB, 07/08/2021. Findings: No abnormal intraabdominal masses are seen. There is no dilatated small bowel or evidence of obstruc tion. The right ureteral stent has been removed. There is a small calcification overlying the inferior pole of the right kidney. Both kidneys are obscured slightly by fecal material and gas. There are right u pper quadrant clips from earlier surgery. XR/XR KUB [id number] Impression: 1. Small right renal calcification. 2. Removal of right ureteral stent.
== END 2021-10-13 08:42 | disposition home or self-care (01) ==
LOC: RAD 08:42
PROVIDERS: PCP Family Medicine; Visit Provider Urology
DX: N20.0 Calculus of kidney (principal); Z96.0 Presence of urogenital implants
CPT/HCPCS: 74018; 81003; 99213

== ENCOUNTER 2021-10-17 20:11 | Emergency (ER) | payer MEDICAID, SELFPAY ==
[2021-10-17 20:17] VITALS: BP 122/72; PULSE 104; RESP 18; TEMP 36.9; O2SAT 96; BMI 28.5
--- NOTE | 2021-10-17 20:20 | ECG_ITS ---
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 Measurements Intervals [place] Rate: 110 P: 38 CA: 136 QRS: 35 QRSD: 85 T: 47 QT: 296 QTc: 400 Interpretive Statements SINUS TACHYCARDIA MODERATE ST DEPRESSION [0.05+ mV ST DEPRESSION] Compared to ECG 10/11/2021 21:11:32 ST (T wave) deviation now present Sinus rhythm no longer present T-wave abnormality no longer present Electronically Signed On 10-18-2021 20:48:50 CDT by Don Bradley M.D. [id number] ann marie
--- NOTE | 2021-10-17 20:20 | XRR_ITS ---
PROCEDURE INFORMATION: Exam: XR Chest Exam date and time: 10/17/2021 10:34 PM Age: 41 years old Clinical indication: Chest pressure; Prior surgery; Surgery type: Coronary stent. Esophageal surgery. Gb. Patient HX: C/O chest pain with SOB. ; Additional info: Cp TECHNIQUE: Imaging protocol: Radiologic exam of the chest. Views: 1 view. COMPARISON: CR (CHEST, ) 10/11/2021 9:21 PM FINDINGS: Lungs: Unremarkable. No consolidation. Pleural spaces: Unremarkable. No pleural effusion. No pneumothorax. Heart/Mediastinum: Unremarkable. No cardiomegaly. Bones/joints: Unremarkable. Soft tissues: Lordotic chest x-ray. XR/XR chest 1V portable [id number] IMPRESSION: No acute findings.
[2021-10-17 20:34] LABS: Basophils # 0.1 10^3/uL (0.0-0.1); Basophils % 0.7 %; Eosinophils # 0.2 10^3/uL (0.0-0.8); Eosinophils % 2.3 %; Hematocrit 48.4 % (42.0-52.0); Hemoglobin 16.3 g/dL (11.7-16.6); Lymphocytes # 2.7 10^3/uL (0.8-4.8); Lymphocytes % 25.6 %; Mean Corpuscular HGB Conc 33.7 g/dL (30.0-36.0); Mean Corpuscular Hemoglobin 30.8 pg (28.0-34.0); Mean Corpuscular Volume 91.3 fl (80-94); Monocytes # 0.9 10^3/uL (0.2-0.9); Monocytes % 8.2 %; Neutrophils # 6.51 10^3/uL (1.8-7.7); Neutrophils % 62.6 %; Nucleated Red Blood Cells % 0 %; Platelet Count 275 10^3/cmm (130-400); Red Cell Distribution Width 13.4 % (12.1-15.1); White Blood Count 10.4 10^3/uL (4.0-10.0)
[2021-10-17 20:54] LABS: D Dimer 0.38 ug/mIFEU (0-0.59)
[2021-10-17 20:57] LABS: Troponin(5th) Baseline 9 ng/L (0-15)
[2021-10-17 21:06] LABS: Alanine Aminotransferase 31 U/L (0-41); Albumin Level 4.6 g/dL (3.5-5.2); Alkaline Phosphatase 144 IU/L (40-130); Anion Gap 16.9 (5-19); Aspartate Amino Transferase 16 U/L (0-40); Blood Urea Nitrogen 13 mg/dL (6-20); Calcium 9.1 mg/dL (8.5-10.5); Carbon Dioxide 24 mmol/L (22-29); Chloride 101 mmol/L (98-107); Globulin 2.2 g/dL (1.3-4.6); Glomerular Filtration Rate 149.2 mL/min (90-130); Glucose 150 mg/dL (65-115); NT Pro B Type Natriuretic Pept 28 pg/mL (0-125); Osmolality Calculated 289 mOsm/kg (285-295); Potassium 3.9 mmol/L (3.5-5.1); Sodium 138 mmol/L (136-145); Total Bilirubin 0.3 mg/dL (0.15-1.2); Total Protein 6.8 g/dL (6.6-8.7)
--- NOTE | 2021-10-17 22:20 | ECG_ITS ---
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 Measurements Intervals [place] Rate: 97 P: 38 LA: 166 QRS: 47 QRSD: 94 T: 52 QT: 334 QTc: 425 Interpretive Statements SINUS RHYTHM POSSIBLE LEFT ATRIAL ENLARGEMENT [-0.1mV P-WAVE IN V1/V2] MODERATE T-WAVE ABNORMALITY, CONSIDER ANTEROLATERAL ISCHEMIA [-0.1+ mV T-WAVE IN V3-V6] Compared to ECG 10/17/2021 20:18:34 T-wave abnormality now present Possible ischemia now present Sinus tachycardia no longer present ST (T wave) deviation no longer present Electronically Signed On 10-18-2021 20:59:53 CDT by Don Bradley M.D. [id number]
--- NOTE | 2021-10-17 22:20 | W.ED.CHESTPA ---
HPI - Chest Pain General: Chief Complaint: Chest Pain Stated Complaint: Chest Pain Time Seen by Provider: 10/17/21 22:08 Source: patient Mode of arrival: ambulatory Limitations: no limitations History of Present Illness: 41-year-old male who is seen here multiple times for chest pain states he has been having ongoing chest pain off and on for roughly a month now. He states pain is a sharp pain in the center of his chest rates an 8 out of 10 currently denies any shortness of breath denies any cough or fever he denies any worsening or improving factors. He denies any vomiting. Associated symptoms: Deny abdominal pain, dyspnea, fever(s), nausea or vomiting Review of Systems Const: Denies: fever(s), chills, body aches or change in appetite Eyes: Denies: blurry vision or eye discomfort ENMT: Denies: throat pain or dental pain Card: Reports: chest pain Resp: Denies: dyspnea GI: Denies: abdominal pain, nausea, vomiting or diarrhea : Denies: dysuria Musc: Denies: neck pain or back pain Skin/Breast: Denies: rash Neuro: Denies: headache(s) Psych: Denies: depression Anjum/Lymph: Denies: easy bruising All/Imm: Denies: urticaria PFSH ED PFSH: Medical History Aorta aneurysm Atherosclerosis of coronary artery COPD (chronic obstructive pulmonary disease) Depression Dyslipidemia Gastroesophageal reflux disease Gross hematuria HTN (hypertension) Presence of stent in LAD coronary artery Urolithiasis Surgical History H/O colonoscopy with polypectomy History of cholecystectomy Hx of heart artery stent S/P ureteral stent placement Status post laser lithotripsy of ureteral calculus Family History Father Heart disease Alcoholic Lung disease Mother Healthy adult Social History Smoking and tobacco status: current every day smoker cigarettes Packs smoked per day: 0.5 Years cigarettes smoked: 20 Alcohol intake: current Alcohol intake frequency: holidays/special occasions only Marital status: Current occupational status: unemployed History of recent travel: No Physical Exam Const: COMMON NORMALS: no acute distress, patient oriented x3 and healthy appearing HENMT: COMMON NORMALS: normocephalic and atraumatic HEAD & SCALP: normocephalic and atraumatic Eye: COMMON NORMALS: Equal, round and reactive pupils present and EOMs intact bilaterally PUPIL: Yes Equal, round and reactive pupils present Neck/C-Spine: COMMON NORMALS: full ROM and supple Chest: COMMONS NORMALS: normal inspection of the chest and normal palpation of entire chest wall Resp: COMMON NORMALS: normal respiratory effort, No retractions, No use of accessory muscles and clear to auscultation bilaterally AUSCULTATION: clear to auscultation bilaterally Cardio: COMMON NORMALS: regular rate, regular rhythm and No murmurs present (Cardio) RATE: regular rate RHYTHM: regular rhythm GI: COMMON NORMALS: Normal to inspection, nondistended, normoactive bowel sounds present, Soft to palpation, non-tender and no masses PALPATION: Yes Soft to palpation Extremity: COMMON NORMALS: normal to inspection and full ROM Neuro: COMMON NORMALS: patient oriented x3, moves all extremities and no focal motor deficits Psych: COMMON NORMALS: mental status grossly normal, Normal thought process present and cooperative THOUGHT PROCESS: Normal thought process present Skin: COMMON NORMALS: no rashes or lesions noted and no wounds GENERAL SKIN EXAM: no rashes or lesions noted Course Vital Signs: Vital signs: Vital Signs Temperature 98.4 F 10/17/21 20:17 Pulse Rate 97 10/17/21 22:39 Respiratory Rate 13 10/17/21 22:39 Blood Pressure 108/81 10/17/21 22:39 Pulse Oximetry 92 10/17/21 22:39 MDM - Chest Pain Medical Decision Making Patient presents for chest pains atypical in nature initial repeat troponins here are normal his D-dimer is negative he has no signs of aortic dissection or pulmonary embolism or acute coronary syndrome he is stable for discharge is to follow-up with PCP and return if worsening. Lab Data : 10/17/21 20:24 10/17/21 20:24 Laboratory Results WBC 10.4 10^3/uL (4.0-10.0) H 10/17/21 20:24 RBC 5.30 10^6/uL (4.1-5.3) 10/17/21 20:24 Hgb 16.3 g/dL (11.7-16.6) 10/17/21 20: Hct 48.4 % (42.0-52.0) 10/17/21: MCV 91.3 fl (80-94) 10/17/21: MCH 30.8 pg (28.0-34.0) 10/17/21: MCHC 33.7 g/dL (30.0-36.0) 10/17/21: RDW 13.4 % (12.1-15.1) 10/17/21: Plt Count 275 10^3/cmm (130-400) 10/17/21: MPV 10.0 fL (7.4-10.4) 10/17/21: Neut % (Auto) 62.6 % 10/17/21: Lymph % (Auto) 25.6 % 10/17/21: [place] % (Auto) 8.2 % 10/17/21: Eos % (Auto) 2.3 % 10/17/21: Baso % (Auto) 0.7 % 10/17/21: Neut # (Auto) 6.51 10^3/uL (1.8-7.7) 10/17/21: Lymph # (Auto) 2.7 10^3/uL (0.8-4.8) 10/17/21: [place] # (Auto) 0.9 10^3/uL (0.2-0.9) 10/17/21: Eos # (Auto) 0.2 10^3/uL (0.0-0.8) 10/17/21: Baso # (Auto) 0.1 10^3/uL (0.0-0.1) 10/17/21: Nucleated RBC % (auto) 0 % 10/17/21 Nucleated RBCs # 0.0 /100WBC 10/17/21: D-Dimer 0.38 ug/mIFEU (0-0.59) 10/17/21 20: Sodium 138 mmol/L (136-145) 10/17/21: Potassium 3.9 mmol/L (3.5-5.1) 07/18/22 20:24 Chloride 101 mmol/L (98-107) 10/17/21 20:24 Carbon Dioxide 24 mmol/L (22-29) 10/17/21 20:24 Anion Gap 16.9 (5-19) 10/17/21 20:24 BUN 13 mg/dL (6-20) 10/17/21 20:24 Creatinine 0.6 mg/dL (0.7-1.2) L 10/17/21 20:24 GFR Calculation 149.2 mL/min (90-130) H 10/17/21 20:24 Glucose 150 mg/dL (65-115) H 10/17/21 20:24 Calculated Osmolality 289 mOsm/kg (285-295) 10/17/21 20:24 Calcium 9.1 mg/dL (8.5-10.5) 10/17/21 20:24 Total Bilirubin 0.3 mg/dL (0.15-1.2) 10/17/21 20:24 AST 16 U/L (0-40) 10/17/21 20:24 ALT 31 U/L (0-41) 10/17/21 20:24 Alkaline Phosphatase 144 IU/L (40-130) H 10/17/21 20:24 Troponin T Baseline 9 ng/L (0-15) 10/17/21 20:24 Troponin T 120 Minute 9.83 ng/L (0-15) 10/17/21 22:19 NT-Pro-B Natriuret Pep 28 pg/mL (0-125) 10/17/21 20:24 Total Protein 6.8 g/dL (6.6-8.7) 10/17/21 20:24 Albumin 4.6 g/dL (3.5-5.2) 10/17/21 20:24 Globulin 2.2 g/dL (1.3-4.6) 10/17/21 20:24 EKG Data EKG 1: I personally reviewed and interpreted this EKG as follows: EKG interpretation date: 10/17/21 EKG interpretation time: :18 Interpretation: sinus tach hr [address] or t wave abnormalities qrs 85 qtc 361 EKG 2: I personally reviewed and interpreted this EKG as follows: EKG interpretation date: 10/17/21 EKG interpretation time: :28 Interpretation: nsr hr [address] or t wave abnormalities qrs 94 [id number] Discharge Plan Discharge Patient Disposition: Home Clinical Impression: Chest pain Condition: Stable Prescriptions: No Action nitroglycerin 0.4 mg tablet, sublingual 0.4 mg sublingual Q5M PRN (Reason: Chest Pain) Qty: 30 6RF Rx Instructions: do not exceed 3 doses per episode omeprazole 40 mg capsule,delayed release(DR/EC) 40 mg PO DAILY 90 Days Qty: 90 3RF aspirin 81 mg tablet,delayed release (DR/EC) 81 mg PO DAILY 90 Days Qty: 90 3RF metoprolol succinate 50 mg tablet extended release 24 hr 50 mg PO DAILY Qty: 90 2RF isosorbide mononitrate 60 mg tablet extended release 24 hr 60 mg PO DAILY Qty: 90 2RF gabapentin 600 mg tablet 600 mg PO TID 30 Days Qty: 90 2RF duloxetine [Cymbalta] 60 mg capsule,delayed release(DR/EC) 60 mg PO DAILY 90 Days Qty: 90 1RF clopidogrel 75 mg tablet 75 mg PO DAILY Qty: 90 4RF atorvastatin 80 mg tablet 80 mg PO BEDTIME Qty: 90 3RF Discharge Orders: Discharge ED (Routine); Ordered 10/17/21 Ordered By: Oscar Mejia Referrals: Anna Roach MD [Primary Care Provider] - Discharge Diet: Advance as tolerated Discharge Activity: Resume usual activity Patient Instructions: Chest Pain (ED) Coding Level of Care Code ED Elevator Service Mechanic for Clair Fwd Exam Comprehensive
[2021-10-17 22:35] VITALS: RESP 16
[2021-10-17] MEDS: ondansetron 2 mg/ML SDV 2 mL 4 MG IVP (22:35)
[2021-10-17] MEDS: HYDROmorphone 1 mg/mL INJ 1 mL IVP (22:35)
[2021-10-17 22:39] VITALS: BP 108/81; PULSE 97; RESP 13; O2SAT 92
[2021-10-17 22:58] LABS: Troponin 5 2HR 9.83 ng/L (0-15)
[2021-10-17 23:14] LABS: Troponin 5 2HR Delta 0.83 ABS# (0-10)
[2021-10-17 23:37] VITALS: BP 105/85; PULSE 85; O2SAT 96
== END 2021-10-17 23:39 | disposition home or self-care (01) ==
PROVIDERS: Emergency Provider Emergency Medicine; PCP Family Medicine
DX: R07.9 Chest pain, unspecified (principal); Z79.82 Long term (current) use of aspirin; Z79.02 Long term (current) use of antithrombotics/antiplatelets; J44.9 Chronic obstructive pulmonary disease, unspecified; I25.10 Atherosclerotic heart disease of native coronary artery without angina pectoris; E78.5 Hyperlipidemia, unspecified; I10 Essential (primary) hypertension; F17.210 Nicotine dependence, cigarettes, uncomplicated
CPT/HCPCS: 71045; 80053; 83880; 84484; 85025; 85378; 93005; 96374; 96375; 99285; J1170; J2405

== ENCOUNTER 2021-11-03 13:19 | Outpatient (CLI) | payer MEDICAID, SELFPAY ==
--- NOTE | 2021-11-03 13:45 | USCV_ITS ---
Jovanny Rico Age: 41 Gender: M : 1980 Exam Date: 11/03/2021 14:05 Ordering Phys: Anna Roach MD Technologist: FRANNIE [place] [facility] [place]: THORAIC AORTIC ANEURYSM BP: 156 / 93 HR: 57 Rhythm: Sinus Technical Quality: Adequate MEASUREMENTS (Male / Female) Normal Values 2D ECHO LVOT Diameter 2.0 cm LV Ejection Fraction MOD 2C 67.1 % LV Ejection Fraction 2C AL 65.1 % LA Diameter 3.0 cm LA Width 3.4 cm LA Height 5.1 cm RA Width 4.0 cm RA Height 5.5 cm Aorta at Sinotubular Diameter 3.2 cm IVC Diameter 1.7 cm M-MODE Aortic Annulus Diameter 4.3 cm LA Ao Ratio MM 0.7 MV E Point Septal Separation 0.4 cm DOPPLER AV Peak Velocity 139.0 cm/s LVOT Peak Velocity 129.0 cm/s AV Area Cont Eq vti 3.2 cm squared AV Area Cont Eq pk 2.9 cm squared MV Peak Velocity 90.0 cm/s MV Area PHT 2.6 cm squared Mitral E to A Ratio 0.8 MV E' Velocity 34.0 cm/s Mitral E to MV E' Ratio 7.8 Mitral E to LV E' Lateral Ratio 7.7 Mitral E to LV E' Septal Ratio 7.9 TR Peak Velocity 147.3 cm/s TR Peak Gradient 8.7 mmHg TR Mean Velocity 122.6 cm/s TR Mean Gradient 6.2 mmHg TR Velocity Time Integral 35.8 cm TV Peak E Velocity 61.0 cm/s Right Atrial Pressure 3.0 mmHg Pulmonary Artery Systolic Pressu 11.7 mmHg PV Peak Velocity 101.0 cm/s RV Acceleration Time 0.1 s RV Ejection Time 0.3 s RV AcT/ET 0.3 FINDINGS Left Ventricle Normal left ventricular size, systolic function and wall thickness, with no regional wall motion abnormalities. Left ventricular ejection fraction is estimated at 70 %. Normal diastolic function. Right Ventricle Normal right ventricular size and systolic function, RVSP 11.7 mmHg. Right Atrium Normal right atrial size. Right atrial pressure estimated at 3 mmHg. Left Atrium Normal left atrial size. Mitral Valve Structurally normal mitral valve. No mitral valve stenosis. No mitral valve regurgitation. Aortic Valve Probably tricuspid aortic valve. No aortic valve stenosis. No aortic valve regurgitation. Tricuspid Valve Structurally normal tricuspid valve. No tricuspid valve stenosis. Trace tricuspid valve regurgitation. Pulmonic Valve Structurally normal pulmonic valve. No pulmonary valve stenosis. No pulmonary valve regurgitation. Pericardium No pericardial effusion. Aorta Moderately dilated aortic root measured anteroposteriorly at 45 mm ( 2 cm/m2). Ascending aorta not well visualized. IVC Normal IVC dimension with >50% respiratory change of the inferior vena cava. CONCLUSIONS 1. Normal left ventricular size, systolic function and wall thickness, with no regional wall motion abnormalities. Left ventricular ejection fraction is estimated at 70 %. Normal diastolic function. 2. Normal right ventricular size and systolic function. 3. Moderately dilated aortic root measured anteroposteriorly at 45 mm ( 2 cm/m2). 4. No prior similar studies to compare. Missy Amaya MD (Electronically Signed) Final Date: 03 November 2021 17:22 S
== END 2021-11-03 13:20 | disposition home or self-care (01) ==
LOC: RAD 13:19
PROVIDERS: PCP Family Medicine; Visit Provider Family Medicine
DX: E78.5 Hyperlipidemia, unspecified (principal); I25.10 Atherosclerotic heart disease of native coronary artery without angina pectoris; I71.2 Thoracic aortic aneurysm, without rupture
CPT/HCPCS: 93306

== ENCOUNTER 2021-11-25 23:47 | Observation (INO) | payer MEDICAID, SELFPAY ==
[2021-11-25 23:56] VITALS: BP 123/84; PULSE 83; RESP 18; TEMP 36.7; O2SAT 95; BMI 30.2
[2021-11-26] VITALS (10 sets, daily range): BP systolic 102–146; BP diastolic 52–76; PULSE 62–78; RESP 15–17; TEMP 36.7–36.9; O2SAT 90–96
--- NOTE | 2021-11-26 00:13 | ECG_ITS ---
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 Measurements Intervals [place] Rate: 81 P: 17 CA: 156 QRS: 35 QRSD: 96 T: 27 QT: 341 QTc: 397 Interpretive Statements SINUS RHYTHM WITH SINUS ARRHYTHMIA ST DEVIATION AND MODERATE T-WAVE ABNORMALITY, CONSIDER ANTEROLATERAL ISCHEMIA [-0.1+ mV T-WAVE IN V3-V6] Compared to ECG 10/17/2021 22:28:19 No significant changes Electronically Signed On 11-26-2021 9:24:58 CDT by Jurgen Maradiaga M.D. [id number]
--- NOTE | 2021-11-26 00:13 | XRR_ITS ---
PROCEDURE INFORMATION: Exam: XR Chest Exam date and time: 11/26/2021 12:28 AM Age: 41 years old Clinical indication: Chest pressure; Prior surgery; Surgery type: Esophagus. Gb. Coronary stent. Patient HX: C/O chest pain. History of esophageal cancer. ; Additional info: Cp TECHNIQUE: Imaging protocol: Radiologic exam of the chest. Views: 1 view. COMPARISON: CR (CHEST, ) 10/17/2021 10:34 PM FINDINGS: Lungs: Unremarkable. No consolidation. Pleural spaces: Unremarkable. No pleural effusion. No pneumothorax. Heart/Mediastinum: Unremarkable. No cardiomegaly. Diaphragm: Stable elevation of the left hemidiaphragm consistent with eventration. Bones/joints: Unremarkable. XR/XR chest 1V portable [id number] IMPRESSION: No acute findings.
[2021-11-26] MEDS: morphine 4 mg/mL SDV 1 mL IVP (00:55)
[2021-11-26] MEDS: ondansetron 2 mg/ML SDV 2 mL 4 MG IVP (00:55)
[2021-11-26] MEDS: aspirin 81 mg Chew Tablet 324 MG PO (00:57)
[2021-11-26] MEDS: nitroglycerin 1 gm/inch oint Pkt 1 INCH TOPICAL (00:57)
[2021-11-26 01:05] LABS: Basophils # 0.1 10^3/uL (0.0-0.1); Basophils % 0.6 %; Eosinophils # 0.3 10^3/uL (0.0-0.8); Eosinophils % 2.5 %; Hematocrit 46.8 % (42.0-52.0); Hemoglobin 15.1 g/dL (11.7-16.6); Lymphocytes # 3.7 10^3/uL (0.8-4.8); Lymphocytes % 36.6 %; Mean Corpuscular HGB Conc 32.3 g/dL (30.0-36.0); Mean Corpuscular Hemoglobin 30.5 pg (28.0-34.0); Mean Corpuscular Volume 94.5 fl (80-94); Mean Platelet Volume 9.8 fL (7.4-10.4); Monocytes # 0.9 10^3/uL (0.2-0.9); Monocytes % 8.6 %; Neutrophils # 5.22 10^3/uL (1.8-7.7); Neutrophils % 51.3 %; Nucleated Red Blood Cells % 0 %; Platelet Count 266 10^3/cmm (130-400); Red Blood Count 4.95 10^6/uL (4.1-5.3); Red Cell Distribution Width 13.9 % (12.1-15.1); White Blood Count 10.2 10^3/uL (4.0-10.0)
[2021-11-26 01:15] LABS: INR 0.94 (0.8-1.2)
[2021-11-26 01:16] LABS: Partial Thromboplastin Time 25.6 SECONDS (23.9-36.7)
[2021-11-26 01:26] LABS: Troponin(5th) Baseline 36 ng/L (0-15)
--- NOTE | 2021-11-26 01:32 | ED_ITS ---
HPI - Chest Pain General: Chief Complaint: Chest Pain Stated Complaint: chest pain Time Seen by Provider: 11/26/21 00:11 Source: patient History of Present Illness: 41-year-old male with chest discomfort, starting this evening at rest. It is nonradiating. He has shortness of breath with it. He describes it as an aching and burning pain. He has coronary artery disease, with a stent placed in April of this year. He has had some chest pain on and off since that time. He denies cough or fever. 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 past history: coronary artery disease Onset (ago): hour(s) Timing of current episode: constant Prior episodes: Yes Onset: during rest Pain location: substernal Pain radiation: none Quality: aching and burning Relieving factors: nothing Exacerbating factors: nothing Associated symptoms: Reports dyspnea and nausea; Deny abdominal pain, diaphoresis, fever(s), leg edema or vomiting Review of Systems Const: Denies: fever(s) or diaphoresis Eyes: Denies: change in vision ENMT: Denies: throat pain Card: Reports: chest pain Resp: Reports: dyspnea GI: Reports: nausea; Denies: abdominal pain or vomiting PFSH ED PFSH: Medical History Aorta aneurysm Atherosclerosis of coronary artery COPD (chronic obstructive pulmonary disease) Depression Dyslipidemia Gastroesophageal reflux disease Gross hematuria HTN (hypertension) Presence of stent in LAD coronary artery Urolithiasis Surgical History H/O colonoscopy with polypectomy History of cholecystectomy Hx of heart artery stent S/P ureteral stent placement Status post laser lithotripsy of ureteral calculus Family History Father Heart disease Alcoholic Lung disease Mother Healthy adult Social History Smoking and tobacco status: current every day smoker cigarettes Packs smoked per day: 0.5 Years cigarettes smoked: 20 Alcohol intake: current Alcohol intake frequency: holidays/special occasions only Marital status: Current occupational status: unemployed History of recent travel: No Physical Exam Const: GENERAL APPEARANCE: cooperative HENMT: COMMON NORMALS: normocephalic, atraumatic and Normal external nose present HEAD & SCALP: normocephalic and atraumatic FACE & SINUS: normal facial exam NOSE: Normal external nose present MOUTH: Normal oral and palatal mucosa present Eye: COMMON NORMALS: Equal, round and reactive pupils present and EOMs intact bilaterally PUPIL: Yes Equal, round and reactive pupils present Neck/C-Spine: COMMON NORMALS: full ROM Chest: CHEST: Yes Symmetrical chest wall rise Resp: COMMON NORMALS: normal respiratory effort, No retractions, No use of accessory muscles and clear to auscultation bilaterally AUSCULTATION: clear to auscultation bilaterally Cardio: COMMON NORMALS: regular rate and regular rhythm RATE: regular rate RHYTHM: regular rhythm GI: COMMON NORMALS: Normal to inspection, nondistended, normoactive bowel s ounds present and Soft to palpation PALPATION: Yes Soft to palpation and Yes Tenderness to palpation present (GI) (Epigastric) Extremity: COMMON NORMALS: normal to inspection Neuro: ZOE COMA SCALE: document GCS findings Zoe coma scale eye opening: Spontaneous Zoe coma scale verbal response: Orientated Zoe coma scale motor response: Obey commands [place] coma scale total score: 15 Course Vital Signs: Vital signs: Vital Signs Temperature 98.3 F 11/26/21 11:35 Pulse Rate 63 11/26/21 11:35 Respiratory Rate 15 11/26/21 11:35 Blood Pressure 104/63 11/26/21 11:35 Pulse Oximetry 91 11/26/21 11:35 Oxygen Delivery Me thod 11/26/21 11:35 MDM - Chest Pain Medical Decision Making 41-year-old male with chest discomfort. Initial EKG shows a sinus rhythm with a rate of 80. Normal axis and intervals. There is ST depression in V2 through V4 with T wave inversion, not present on his last EKG exam last month. He is given aspirin, nitroglycerin paste, morphine for discomfort. His first troponin is 36 which is well above his normal baseline. His chest x-ray is negative. He will be admitted for anginal chest pain and a coronary disease patient will elevated troponin/non-STEMI. Hospitalist will evaluate. Lab Data : 11/26/21 00:55 11/26/21 00:55 Radiology Impressions Chest X-Ray 11/26/21 00:13 IMPRESSION: No acute findings. Laboratory Results WBC 10.2 10^3/uL (4.0-10.0) H 11/26/21 00:55 RBC 4.95 10^6/uL (4.1-5.3) 11/26/21 00:55 Hgb 15.1 g/dL (11.7-16.6) 11/26/21 00:55 Hct 46.8 % (42.0-52.0) 11/26/21 00:55 MCV 94.5 fl (80-94) H 11/26/21 00:55 MCH 30.5 pg (28.0-34.0) 11/26/21 00:55 MCHC 32.3 g/dL (30.0-36.0) 11/26/21 00:55 RDW 13.9 % (12.1-15.1) 11/26/21 00:55 Plt Count 266 10^3/cmm (130-400) 11/26/21 00:55 MPV 9.8 fL (7.4-10.4) 11/26/21 00:55 Neut % (Auto) 51.3 % 11/26/21 00:55 Lymph % (Auto) 36.6 % 11/26/21 00:55 [place] % (Auto) 8.6 % 11/26/21 00:55 Eos % (Auto) 2.5 % 11/26/21 00:55 Baso % (Auto) 0.6 % 11/26/21 00:55 Neut # (Auto) 5.22 10^3/uL (1.8-7.7) 11/26/21 00:55 Lymph # (Auto) 3.7 10^3/uL (0.8-4.8) 11/26/21 00:55 Hernando # (Auto) 0.9 10^3/uL (0.2-0.9) 11/26/21 00:55 Eos # (Auto) 0.3 10^3/uL (0.0-0.8) 11/26/21 00:55 Baso # (Auto) 0.1 10^3/uL (0.0-0.1) 11/26/21 00:55 Nucleated RBC % (auto) 0 % 11/26/21 00:55 Nucleated RBCs # 0.0 /100WBC 11/26/21 00:55 PT 12.90 SECONDS (12.1-14.9) 11/26/21 00:55 INR 0.94 (0.8-1.2) 11/26/21 00:55 APTT 25.6 SECONDS (23.9-36.7) 11/26/21 00:55 Sodium 142 mmol/L (136-145) 11/26/21 00:55 Potassium 4.3 mmol/L (3.5-5.1) 11/26/21 00:55 Chloride 105 mmol/L (98-107) 11/26/21 00:55 Carbon Dioxide 25 mmol/L (22-29) 11/26/21 00:55 Anion Gap 16.3 (5-19) 11/26/21 00:55 BUN 15 mg/dL (6-20) 11/26/21 00:55 Creatinine 0.7 mg/dL (0.7-1.2) 11/26/21 00:55 GFR Calculation 124.9 mL/min (90-130) 11/26/21 00:55 Glucose 74 mg/dL (65-115) 11/26/21 00:55 Estimat Average Glucose 117 11/26/21 00:55 Hemoglobin A1c 5.7 % (4.0-6.0) 11/26/21 00:55 Calculated Osmolality 293 mOsm/kg (285-295) 11/26/21 00:55 Calcium 9.3 mg/dL (8.5-10.5) 11/26/21 00:55 Total Bilirubin 0.2 mg/dL (0.15-1.2) 11/26/21 00:55 AST 14 U/L (0-40) 11/26/21 00:55 ALT 24 U/L (0-41) 11/26/21 00:55 Alkaline Phosphatase 126 U/L (40-130) 11/26/21 00:55 Troponin T Baseline 36 ng/L (0-15) H 11/26/21 00:55 NT-Pro-B Natriuret Pep 82 pg/mL (0-125) 11/26/21 00:55 NT-Pro-B Natriuret Pep Cancelled 11/26/21 00:55 Total Protein 6.3 g/dL (6.6-8.7) L 11/26/21 00:55 Albumin 4.4 g/dL (3.5-5.2) 11/26/21 00:55 Globulin 1.9 g/dL (1.3-4.6) 11/26/21 00:55 Triglycerides 245 mg/dL (0-150) H 11/26/21 00:55 Cholesterol 198 mg/dL (0-200) 11/26/21 00:55 LDL Cholesterol, Calc 117 mg/dL (50-129) 11/26/21 00:55 HDL Cholesterol 32 mg/dL (60-100) L 11/26/21 00:55 LDL/HDL Ratio 3.66 RATIO (0.00-3.22) H 11/26/21 00:55 Cholesterol/HDL Ratio 6.19 mg/dL (1.0-5.00) H 11/26/21 00:55 TSH 1.19 uIU/mL (0.27-4.20) 11/26/21 00:55 Discharge Plan Discharge Patient Disposition: Admitted As Inpatient Admit Provider: Chucky Lomeli Clinical Impression: Chest pain, Non-STEMI (non-ST elevated myocardial infarction) Condition: Stable Coding Level of Care Code ED 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
[2021-11-26 01:34] LABS: Alanine Aminotransferase 24 U/L (0-41); Albumin Level 4.4 g/dL (3.5-5.2); Alkaline Phosphatase 126 U/L (40-130); Anion Gap 16.3 (5-19); Aspartate Amino Transferase 14 U/L (0-40); Blood Urea Nitrogen 15 mg/dL (6-20); Calcium 9.3 mg/dL (8.5-10.5); Carbon Dioxide 25 mmol/L (22-29); Chloride 105 mmol/L (98-107); Globulin 1.9 g/dL (1.3-4.6); Glomerular Filtration Rate 124.9 mL/min (90-130); Glucose 74 mg/dL (65-115); NT Pro B Type Natriuretic Pept 82 pg/mL (0-125); Osmolality Calculated 293 mOsm/kg (285-295); Potassium 4.3 mmol/L (3.5-5.1); Sodium 142 mmol/L (136-145); Total Bilirubin 0.2 mg/dL (0.15-1.2); Total Protein 6.3 g/dL (6.6-8.7)
--- NOTE | 2021-11-26 02:11 | P.HP_ITS ---
Providers/Chief Complaint Primary Care Provider: Anna Roach MD Chief Complaint: chest pain History of Present Illness Jovanny Rico is a 41 year old male with a past medical history of CAD status post stenting, aortic aneurysm, COPD, current smoking, hypertension, who presents to [facility] due to chest pain. Patient tells me that this evening he developed substernal chest pain, radiating down both arms, no shortness of breath, diaphoresis, no nausea, no vomiting. Denies any lightheadedness, dizziness, does report smoking, does report history of acid reflux Review of Systems Card: Reports: chest pain Resp: Denies: dyspnea Medications/Allergies Home Medications Medication Instructions Recorded Confirmed Last Taken Type aspirin 81 mg tablet,delayed 81 mg PO DAILY 90 days #90 tabs 07/11/21 11/24/21 Unknown Rx release omeprazole 40 mg capsule,delayed 40 mg PO DAILY 90 days #90 caps 07/11/21 11/24/21 Unknown Rx release duloxetine 60 mg capsule,delayed 60 mg PO DAILY 90 days #90 caps 10/10/21 11/24/21 Unknown Rx release (Cymbalta) gabapentin 600 mg tablet 600 mg PO TID 30 days #90 tabs 10/10/21 11/24/21 Unk nown Rx atorvastatin 80 mg tablet 80 mg PO BEDTIME #90 tabs 11/07/21 11/24/21 Unknown Rx clopidogrel 75 mg tablet 75 mg PO DAILY #90 tabs 11/07/21 11/24/21 Unknown Rx isosorbide mononitrate 30 mg 30 mg PO QAM #90 tabs 11/07/21 11/24/21 Unknown Rx tablet,extended release 24 hr isosorbide mononitrate 60 mg 60 mg PO DAILY #90 tabs 11/07/21 11/24/21 Unknown Rx tablet,extended release 24 hr metoprolol succinate 50 mg 50 mg PO DAILY #90 tabs 11/07/21 11/24/21 Unknown Rx tablet,extended release 24 hr nitroglycerin 0.4 mg sublingual 0.4 mg sublingual Q5M PRN Chest 11/07/21 11/24/21 Unknown Rx tablet Pain #30 tabs Allergies Allergy/AdvReac Type Severity Reaction Status Date / Time No Known Allergies Allergy Verified 11/24/21 07:58 PFSH Acute PFSH: Medical History Aorta aneurysm Atherosclerosis of coronary artery COPD (chronic obstructive pulmonary disease) Depression Dyslipidemia Gastroesophageal reflux disease Gross hematuria HTN (hypertension) Presence of stent in LAD coronary artery Urolithiasis Surgical History H/O colonoscopy with polypectomy History of cholecystectomy Hx of heart artery stent S/P ureteral stent placement Status post laser lithotripsy of ureteral calculus Family History Father Heart disease Alcoholic Lung disease Mother Healthy adult Social History Smoking and tobacco status: current every day smoker cigarettes Packs smoked per day: 0.5 Years cigarettes smoked: 20 Alcohol intake: current Alcohol intake frequency: holidays/special occasions only Marital status: Current occupational status: unemployed History of recent travel: No Vitals/I&O/Wt Last Vital Signs Temp 98.1 F 11/25/21 23:56 Pulse 83 11/25/21 23:56 Resp 16 11/26/21 00:55 BP 123/84 11/25/21 23:56 Pulse Ox 95 11/25/21 23:56 O2 Del Method 11/25/21 23:56 Weight last 48 hrs Weight 100.97 kg Physical Exam Const: COMMON NORMALS: no acute distress and patient oriented x3 HENMT: COMMON NORMALS: normocephalic HEAD & SCALP: normocephalic Neck/C-Spine: COMMON NORMALS: no JVD Resp: COMMON NORMALS: normal respiratory effort, No retractions, No use of accessory muscles and clear to auscultation bilaterally AUSCULTATION: clear to auscultation bilaterally Cardio: COMMON NORMALS: no JVD, regular rate, regular rhythm, S1 normal heart sound present and S2 normal heart sound present RATE: regular rate RHYTHM: regular rhythm HEART SOUNDS: S1 normal heart sound present and S2 normal heart sound present GI: COMMON NORMALS: Normal to inspection, nondistended, normoactive bowel sounds present, Soft to palpation, non-tender, No hepatosplenomegaly present, no masses and no bruits PALPATION: Yes Soft to palpation and Yes No hepatosplenomegaly present Extremity: COMMON NORMALS: capillary refill normal, no clubbing, cyanosis or edema, no calf tenderness and no pedal edema Neuro: COMMON NORMALS: patient oriented x3 Psych: COMMON NORMALS: mental status grossly normal Data : 11/26/21 00:55 11/26/21 00:55 A&P Assessment and plan (1) Chest pain: Status: Acute Plan Unstable angina -Baseline troponin 36, does have nonspecific ST-T wave changes lateral leads -Serial EKGs concerned troponins, telemetry monitoring -Continue aspirin, Plavix, beta-patrick -Nitro as needed for chest pain -Therapeutic Lovenox -Recent cardiac echocardiogram 1. Normal left ventricular size, systolic function and wall ?thickness, with no regional wall motion abnormalities. Left ?ventricular ejection fraction is estimated at 70 %. Normal ?diastolic function. ?2. Normal right ventricular size and systolic function. ?3. Moderately dilated aortic root measured anteroposteriorly at ?45 mm ( 2 cm/m2). ?4. No prior similar studies to compare. -Based upon troponin trend, and symptomatology further recommendations will be made, patient might require cardiology evaluation -Full code -Lovenox for DVT prophylaxis Hypertension continue home medications Attestations Medical Necessity Statement*: Patient requires hospitalization, outpatient with observation for chest pain Coding Level of Care Code Acute Dispatcher Refinery for [facility] Priyanka Diagnoses Chest pain R07.9
--- NOTE | 2021-11-26 02:13 | ECG_ITS ---
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 Measurements Intervals [place] Rate: 68 P: 29 IN: 170 QRS: 62 QRSD: 97 T: 29 QT: 380 QTc: 405 Interpretive Statements SINUS RHYTHM WITH OCCASIONAL SUPRAVENTRICULAR PREMATURE COMPLEXES ST DEVIATION AND MODERATE T-WAVE ABNORMALITY, CONSIDER ANTERIOR ISCHEMIA [-0.1+ mV T-WAVE IN V3/V4] Compared to ECG 11/26/2021 00:00:42 Sinus arrhythmia no longer present T-wave abnormality still present Possible ischemia still present Electronically Signed On 11-26-2021 9:29:42 CDT by Jurgen Maradiaga M.D. [id number]
[2021-11-26] MEDS: enoxaparin 100 mg/mL Syringe SUBCUT ×2 (02:31→14:28)
[2021-11-26] MEDS: pantoprazole 40 mg SDV IVP (04:01)
[2021-11-26 04:20] LABS: Troponin 5 2HR 39.38 ng/L (0-15)
[2021-11-26 04:22] LABS: Cholesterol 198 mg/dL (0-200); LDL Cholesterol Calculated 117 mg/dL (50-129)
[2021-11-26 04:24] LABS: Estmated Average Glucose 117; Hemoglobin A1C 5.7 % (4.0-6.0); Thyroid Stimulating Hormone 1.19 uIU/mL (0.27-4.20)
[2021-11-26 04:26] LABS: Troponin 5 2HR Delta 3.38 ABS# (0-10)
[2021-11-26 04:29] LABS: Chol HDL Ratio 6.19 mg/dL (1.0-5.00); HDL Cholesterol 32 mg/dL (60-100); LDL HDL Ratio 3.66 RATIO (0.00-3.22); Triglycerides 245 mg/dL (0-150)
--- NOTE | 2021-11-26 06:13 | ECG_ITS ---
[facility] Test Date: 2021-11-26 Pat Name: Jovanny Rico Department: Room: 276 Gender: Male Director Of Residence Life: : 1980 Requested By: Earl Gimenez Order Number: [id number] Reading MD: Jurgen Maradiaga M.D. Measurements Intervals [place] Rate: 64 P: 34 MA: 159 QRS: 61 QRSD: 99 T: -2 QT: 404 QTc: 418 Interpretive Statements SINUS RHYTHM ST DEVIATION AND MODERATE T-WAVE ABNORMALITY, CONSIDER ANTEROLATERAL ISCHEMIA [-0.1+ mV T-WAVE IN V3-V6] Compared to ECG 11/26/2021 03:54:11 No significant changes Electronically Signed On 11-26-2021 9:30:10 CDT by Jurgen Maradiaga M.D. [id number]
[2021-11-26 07:19] LABS: Troponin 5 6HR 40.57 ng/L (0-15)
[2021-11-26 07:21] LABS: Troponin 5 6HR Delta 4.57 ng/L (0-12)
[2021-11-26] MEDS: gabapentin 300 mg Capsule 600 MG PO ×3 (08:56→22:17)
[2021-11-26] MEDS: metoprolol succinate ER (24 HR) 50 mg Tablet PO (08:56)
[2021-11-26] MEDS: clopidogrel 75 mg Tablet PO (08:56)
[2021-11-26] MEDS: aspirin 81 mg EC Tablet PO (08:56)
[2021-11-26] MEDS: duloxetine 60 mg Capsule PO (08:56)
--- NOTE | 2021-11-26 13:22 | P.PN_ITS ---
Subjective Subjective: 41-year-old man with past medical history of coronary artery disease with?angiogram few years back,? unspecified aortic aneurysm, COPD, depression and GERD. He also has h/o Eli's esophagus history of noncompliance.? EKG showed sinus rhythm, normal axis . T wave inversion in anterior leads, consider anterior ischemia.? He also has h/o?hypertension, hyperlipidemia, history of nonobstructive disease 40 to 50% mid LAD tandem lesions which were not significant by FFR few years ago at an outside hospital. He went coronary angiogram that showed 2 tandem lesion in the mid LAD proximal one was 40 to 50% and mid and distal lesion appeared to be significant 80%. Spot IFR was performed which was 0.87 and significant gradient was confirmed across the lesion by withdrawing wire in between 2 lesion which improved to 0.97.? He underwent balloon angioplasty followed by stent placement in the significant lesion with excellent angiographic result with KELLEE-3 flow. This morning patient is sleeping, when I woke him up patient is stating that he still having some discomfort however he goes back to sleep right away, Hemodynamically stable currently has Nitropaste patch Vitals/I&O/Wt Last Vital Signs Temp 98.3 F 11/26/21 11:35 Pulse 63 11/26/21 11:35 Resp 15 11/26/21 11:35 BP 104/63 11/26/21 11:35 Pulse Ox 91 11/26/21 11:35 O2 Del Method 11/26/21 11:35 11/25/21 11/26/21 11/26/21 22:59 06:59 14:59 Intake Total 120 / 120 120 / 120 Balance 120 / 120 120 / 120 Weight last 48 hrs Weight 100.97 kg Physical Exam Narrative: Patient was in deep sleep when I woke him up, when he woke up he stated that he was in chest pain 9 out of 10 I did confront him and stated that would not have anyone able to sleep He did not reply He went back to sleep S1, S2 abdomen soft Currently on room air Nonfocal neuro exam Has a Nitropaste on his chest Data : 11/26/21 00:55 11/26/21 00:55 A&P Assessment and plan (1) Chest pain: Status: Acute (2) Depression: Status: Acute Qualifiers: Depression Type: major depressive disorder Major depression recurrence: recurrent Active/Remission status: currently active Major depression episode severity: severe Psychotic features: without psychotic features Qualified Code(s): F33.2 - Major depressive disorder, recurrent severe without psychotic features (3) Aorta aneurysm: Status: Acute Qualifiers: Aortic location: thoracic aorta Presence of rupture: without rupture Qualified Code(s): I71.2 - Thoracic aortic aneurysm, without rupture (4) COPD (chronic obstructive pulmonary disease): Status: Acute Qualifiers: COPD type: unspecified COPD Qualified Code(s): J44.9 - Chronic obstructive pulmonary disease, unspecified (5) CAD (coronary artery disease): Status: Acute Qualifiers: Coronary Disease-Associated Artery/Lesion type: [place] artery [place] vs. transplanted heart: big sandy heart Associated angina: with stable angina Qualified Code(s): I25.118 - Atherosclerotic heart disease of big [place] coronary artery with other forms of angina pectoris (6) Tobacco use: Status: Acute (7) Central apnea: Status: Acute Plan 41-year-old male well-known to Dr. Amaya, history of noncompliance, has had multiple visits to different hospitals, history of coronary disease, Eli's esophagus, active smoker, Unstable angina Patient stating that his pain is substernal radiating towards his left arm however this morning he is in deep sleep, when I woke him up he endorsed pain 9/10 and went back to sleep Pain is not reproducible I would like to monitor him for now I would probably continue Nitropaste because of his Eli's esophagus history, I would also add GI cocktail and Protonix to see if that would resolve his symptoms He is an active smoker, noncompliant I did review his EKG he has T wave inversion in anterior leads, from May these changes are present and are not considered new at all Will like to monitor him 1 more day Check D-dimer Check drug screen Hemodynamically stable Full code Cardiac diet Did not meet criteria for ACS Troponin trending down I would continue 48 hours on therapeutic Lovenox for now Attestations 2 Medical Necessity Statement*: Continue hospitalization for today Time Spent in Patient Care: 30 Coding Level of Care Code Acute Cardiac/Vascular Sonographer for [facility] Fwd Diagnoses Chest pain R07.9 Depression F33.2 Depression Type: major depressive disorder Major depression recurrence: recurrent Active/Remission status: currently active Major depression episode severity: severe Psychotic features: without psychotic features Aorta aneurysm I71.2 Aortic location: thoracic aorta Presence of rupture: without rupture COPD (chronic obstructive pulmonary disease) J44.9 COPD type: unspecified COPD CAD (coronary artery disease) I25.118 Coronary Disease-Associated Artery/Lesion type: [place] artery [place] vs. transplanted heart: big [place] heart Associated angina: with stable angina Tobacco use Z72.0 Central apnea R06.81
[2021-11-26] MEDS: lidocaine 2% viscous 15 ML, aluminum-mag hydrox-simethicon 30 ML, sucralfate oral liq 1 GM PO (14:24)
[2021-11-26 16:21] LABS: D Dimer <= 0.27 ug/mIFEU (0-0.59)
[2021-11-26] MEDS: atorvastatin 40 mg Tablet 80 MG PO (22:17)
[2021-11-27] VITALS (10 sets, daily range): BP systolic 106–128; BP diastolic 61–75; PULSE 53–79; RESP 16–26; TEMP 36.4–37.2; O2SAT 92–96
[2021-11-27] MEDS: pantoprazole 40 mg SDV IVP (02:53)
[2021-11-27] MEDS: enoxaparin 100 mg/mL Syringe SUBCUT ×2 (02:53→15:14)
[2021-11-27 03:28] LABS: Basophils # 0.1 10^3/uL (0.0-0.1); Basophils % 0.6 %; Eosinophils # 0.2 10^3/uL (0.0-0.8); Eosinophils % 2.8 %; Hematocrit 43.3 % (42.0-52.0); Hemoglobin 14.1 g/dL (11.7-16.6); Lymphocytes # 3.1 10^3/uL (0.8-4.8); Lymphocytes % 40.5 %; Mean Corpuscular HGB Conc 32.6 g/dL (30.0-36.0); Mean Corpuscular Hemoglobin 30.7 pg (28.0-34.0); Mean Corpuscular Volume 94.3 fl (80-94); Mean Platelet Volume 10.5 fL (7.4-10.4); Monocytes # 0.6 10^3/uL (0.2-0.9); Monocytes % 7.8 %; Neutrophils # 3.69 10^3/uL (1.8-7.7); Neutrophils % 47.9 %; Nucleated Red Blood Cells % 0 %; Platelet Count 231 10^3/cmm (130-400); Red Blood Count 4.59 10^6/uL (4.1-5.3); Red Cell Distribution Width 13.4 % (12.1-15.1); White Blood Count 7.7 10^3/uL (4.0-10.0)
[2021-11-27 03:45] LABS: Chol HDL Ratio 7.85 mg/dL (1.0-5.00); Cholesterol 204 mg/dL (0-200); HDL Cholesterol 26 mg/dL (60-100); Triglycerides 659 mg/dL (0-150)
[2021-11-27 03:54] LABS: Alanine Aminotransferase 53 U/L (0-41); Albumin Level 3.7 g/dL (3.5-5.2); Alkaline Phosphatase 129 U/L (40-130); Aspartate Amino Transferase 26 U/L (0-40); Blood Urea Nitrogen 18 mg/dL (6-20); Calcium 8.6 mg/dL (8.5-10.5); Carbon Dioxide 25 mmol/L (22-29); Chloride 104 mmol/L (98-107); Globulin 2.2 g/dL (1.3-4.6); Glomerular Filtration Rate 149.2 mL/min (90-130); Glucose 133 mg/dL (65-115); Osmolality Calculated 296 mOsm/kg (285-295); Phosphorus 3.2 mg/dL (2.5-4.5); Sodium 141 mmol/L (136-145); Thyroid Stimulating Hormone 0.52 uIU/mL (0.27-4.20); Total Bilirubin 0.2 mg/dL (0.15-1.2); Total Protein 5.9 g/dL (6.6-8.7)
[2021-11-27 03:56] LABS: Anion Gap 15.7 (5-19); Potassium 3.7 mmol/L (3.5-5.1)
[2021-11-27 03:58] LABS: Estmated Average Glucose 114; Hemoglobin A1C 5.6 % (4.0-6.0)
[2021-11-27 04:09] LABS: LDL Cholesterol Direct 98 mg/dL (0-100)
[2021-11-27] MEDS: gabapentin 300 mg Capsule 600 MG PO ×3 (08:04→21:04)
[2021-11-27] MEDS: metoprolol succinate ER (24 HR) 50 mg Tablet PO (08:05)
[2021-11-27] MEDS: duloxetine 60 mg Capsule PO (08:05)
[2021-11-27] MEDS: aspirin 81 mg EC Tablet PO (08:05)
[2021-11-27] MEDS: clopidogrel 75 mg Tablet PO (08:05)
--- NOTE | 2021-11-27 15:06 | PM.PN ---
Subjective Subjective: Patient is endorsing feeling better with GI cocktail Patient will be resting fine and sleeping however when I asked him about his chest pain he gives very vague answers and states that yes he does get chest pain which radiates towards his left side D-dimer unremarkable Vitals/I&O/Wt Last Vital Signs Temp 98.0 F 11/27/21 12:00 Pulse 77 11/27/21 12:00 Resp 16 11/27/21 12:00 BP 112/75 11/27/21 12:00 Pulse Ox 92 11/27/21 12:00 O2 Del Method 11/27/21 12:00 11/27/21 11/27/21 11/27/21 06:59 14:59 22:59 Intake Total 1380 / 1980 238 / 238 Output Total 900 / 1500 400 / 400 Balance 480 / 480 -162 / -162 Weight last 48 hrs Weight 100.97 kg Physical Exam Narrative: Patient is laying supine No active distress Was resting comfortably On room air Nonfocal neuro exam Abdomen is soft S1, S2 No murmur appreciated Euvolemic Seems to have flat affect Data : 11/27/21 02:27 11/27/21 02:27 A&P Assessment and plan (1) Chest pain: Status: Acute (2) Depression: Status: Acute Qualifiers: Depression Type: major depressive disorder Major depression recurrence: recurrent Active/Remission status: currently active Major depression episode severity: severe Psychotic features: without psychotic features Qualified Code(s): F33.2 - Major depressive disorder, recurrent severe without psychotic features (3) Aorta aneurysm: Status: Acute Qualifiers: Aortic location: thoracic aorta Presence of rupture: without rupture Qualified Code(s): I71.2 - Thoracic aortic aneurysm, without rupture (4) COPD (chronic obstructive pulmonary disease): Status: Acute Qualifiers: COPD type: unspecified COPD Qualified Code(s): J44.9 - Chronic obstructive pulmonary disease, unspecified (5) CAD (coronary artery disease): Status: Acute Qualifiers: Coronary Disease-Associated Artery/Lesion type: [place]er artery [place] vs. transplanted heart: teller heart Associated angina: with stable angina Qualified Code(s): I25.118 - Atherosclerotic heart disease of teller coronary artery with other forms of angina pectoris (6) Tobacco use: Status: Acute (7) Central apnea: Status: Acute (8) Atherosclerosis of coronary artery: Status: Acute Qualifiers: Coronary Disease-Associated Artery/Lesion type: [place]er artery [place] vs. transplanted heart: teller heart (9) Dyslipidemia: Status: Acute (10) HTN (hypertension): Status: Acute (11) Thoracic back pain: Status: Acute Qualifiers: Chronicity: acute Back pain laterality: left Qualified Code(s): M54.6 - Pain in thoracic spine (12) Cervical radiculopathy: Status: Acute (13) GERD (gastroesophageal reflux disease): Status: Acute Plan 41-year-old male who has history of noncompliance, well-known to Dr. Amaya, please read her note for further details, patient has been noncompliant with his medications, an active smoker, does complain awake symptoms, has had multiple admissions in different hospitals in the area, presented with chief complaint of chest pain Unstable angina Recent cardiac cath 04/11/[address] Romo at that time it showed one-vessel coronary disease mid left anterior descending which was treated with balloon angioplasty and drug-eluting stent No active complaint Blood pressure at goal heart rate below 80 His symptoms resolved to GI cocktail Troponin without significant delta His T wave inversion was noted in LAD distribution however this was present in May as well these are not considered new changes No active chest pain Considering his significant/established coronary disease and vague symptoms I have decided to do a stress test on Sunday Hemoglobin A1c 5.6 Significant dyslipidemia Active smoker Echo was done on 11/03 I have not repeated this imaging again, he has preserved ejection fraction With moderately dilated aortic root 45 mm Would recommend outpatient cardiothoracic follow-up Continue aspirin, atorvastatin Optimize antianginal at the time of discharge He does seem to have component of cervical radiculopathy with numbness of left arm, cervical spine CT was unremarkable that was done in May as well History of 2 mm stone left ureter however no active symptoms No history of peripheral vascular disease Patient is full code DVT prophylaxis on board Attestations Medical Necessity Statement*: He can be discharged on Sunday if stress test is negative Time Spent in Patient Care: 30 Coding Level of Care Code Acute Package Clerk for Clair Mathew Diagnoses Chest pain R07.9 Depression F33.2 Depression Type: major depressive disorder Major depression recurrence: recurrent Active/Remission status: currently active Major depression episode severity: severe Psychotic features: without psychotic features Aorta aneurysm I71.2 Aortic location: thoracic aorta Presence of rupture: without rupture COPD (chronic obstructive pulmonary disease) J44.9 COPD type: unspecified COPD CAD (coronary artery disease) I25.118 Coronary Disease-Associated Artery/Lesion type: [place]er artery [place] vs. transplanted heart: teller heart Associated angina: with stable angina Tobacco use Z72.0 Central apnea R06.81 Atherosclerosis of coronary artery I25.10 Coronary Disease-Associated Artery/Lesion type: teller artery [place] vs. transplanted heart: teller heart Dyslipidemia E78.5 HTN (hypertension) I10 Thoracic back pain M54.6 Chronicity: acute Back pain laterality: left Cervical radiculopathy M54.12 GERD (gastroesophageal reflux disease) K21.9
[2021-11-27] MEDS: TRAMadol 50 mg Tablet PO (15:43)
--- NOTE | 2021-11-27 18:51 | PC.NURSE ---
Verbal orders for morphine 2mg ONCE for chest pain
[2021-11-27] MEDS: atorvastatin 40 mg Tablet 80 MG PO (21:04)
--- NOTE | 2021-11-27 21:24 | PC.NURSE ---
TRANSFER OF CARE Care of pt assumed at this time from Wale Galindo RN. Pt watching TV and without c/o
[2021-11-28] VITALS (7 sets, daily range): BP systolic 117–131; BP diastolic 73–85; PULSE 52–77; RESP 15–20; TEMP 36.4–36.8; O2SAT 94–96
--- NOTE | 2021-11-28 | ECG_ITS ---
[facility] Test Date: 2021-11-28 Pat Name: Jovanny Rico Department: Room: 277 Gender: Male Yacht Hand: : 1980 Requested By: Jesus Rowland Order Number: [id number] Jody MD: Missy Amaya M.D. Interpretive Statements NAME OF STUDY: LEXISCAN SESTAMIBI STRESS TEST INDICATION: Unstable angina PROCEDURE: At the baseline, the blood pressure was 148/99 mmHg, oxygen saturation 93% with a heart rate of 52 bpm. The electrocardiogram showed normal sinus rhythm, normal axis. T wave inversion in lead III, aVF, V3 to V6. The Lexiscan was infused over a period of 20 seconds. A total of 0.4 milligrams of Lexiscan was infused. The stress phase was continued for a total of 5 minutes. Heart rate at the end of the stress phase was 82 bpm, oxygen saturation 93% with a blood pressure of 123/73 mmHg. The EKG at the peak infusion revealed no significant ST-T wave changes. Sestamibi was injected 20 seconds after the Lexiscan infusion. Blood pressure at the end of the recovery phase was 117/78 mmHg, oxygen saturation 92% with a heart rate of 78 beats per minute. CONCLUSION: 1. No significant EKG changes with the LexiScan infusion. 2. No LexiScan induced chest pain or cardiac arrhythmia. 3. Normal blood pressure and heart rate response. 4. Sestamibi/sestamibi perfusion scan pending; see separate report. Electronically Signed On 11-29-2021 13:14:43 CDT by Missy Amaya M.D. [email or web address]
[2021-11-28] MEDS: enoxaparin 100 mg/mL Syringe SUBCUT (02:38)
[2021-11-28 05:34] LABS: Basophils # 0.1 10^3/uL (0.0-0.1); Eosinophils # 0.3 10^3/uL (0.0-0.8); Eosinophils % 3.9 %; Hematocrit 43.8 % (42.0-52.0); Hemoglobin 13.9 g/dL (11.7-16.6); Lymphocytes # 3.5 10^3/uL (0.8-4.8); Lymphocytes % 40.5 %; Mean Corpuscular HGB Conc 31.7 g/dL (30.0-36.0); Mean Corpuscular Hemoglobin 30.4 pg (28.0-34.0); Mean Corpuscular Volume 95.8 fl (80-94); Mean Platelet Volume 10.2 fL (7.4-10.4); Neutrophils # 3.71 10^3/uL (1.8-7.7); Neutrophils % 43.1 %; Nucleated Red Blood Cells % 0 %; Platelet Count 216 10^3/cmm (130-400); Red Blood Count 4.57 10^6/uL (4.1-5.3); Red Cell Distribution Width 13.2 % (12.1-15.1); White Blood Count 8.6 10^3/uL (4.0-10.0)
[2021-11-28 05:58] LABS: Alanine Aminotransferase 40 U/L (0-41); Albumin Level 3.7 g/dL (3.5-5.2); Alkaline Phosphatase 115 U/L (40-130); Anion Gap 15.8 (5-19); Aspartate Amino Transferase 15 U/L (0-40); Blood Urea Nitrogen 12 mg/dL (6-20); Calcium 8.6 mg/dL (8.5-10.5); Carbon Dioxide 24 mmol/L (22-29); Chloride 106 mmol/L (98-107); Globulin 2.2 g/dL (1.3-4.6); Glomerular Filtration Rate 149.2 mL/min (90-130); Glucose 97 mg/dL (65-115); Osmolality Calculated 294 mOsm/kg (285-295); Phosphorus 4.2 mg/dL (2.5-4.5); Potassium 3.8 mmol/L (3.5-5.1); Sodium 142 mmol/L (136-145); Total Bilirubin 0.2 mg/dL (0.15-1.2); Total Protein 5.9 g/dL (6.6-8.7)
--- NOTE | 2021-11-28 06:46 | PC.NURSE ---
STRESS TEST Pt taken per wheelchair for start of Stress Test
[2021-11-28] MEDS: regadenoson 0.4 Mg/5 ml Syringe IVP (07:19)
[2021-11-28] MEDS: clopidogrel 75 mg Tablet PO (10:59)
[2021-11-28] MEDS: gabapentin 300 mg Capsule 600 MG PO ×2 (10:59→16:56)
[2021-11-28] MEDS: aspirin 81 mg EC Tablet PO (10:59)
[2021-11-28] MEDS: duloxetine 60 mg Capsule PO (11:00)
--- NOTE | 2021-11-28 15:14 | NMCV_ITS ---
NM ghazal perf SPECT r/s* [id number] Jovanny Rico Age: 41 Gender: M : 1980 Exam Date: 11/28/2021 06:42 Ordering Phys: Jesus Rowland MD Technologist: CARMITA Wilde Exam Location: [facility] Indications: CHEST PAIN STRESS TEST Please see separate stress test report in [facility] for full findings IMAGE PROTOCOL Rest/Stress 1 Lexiscan Day Radiopharmaceutical Dose (mCi) Administration Site Administered by Rest: Tc-99m 10.8 IV CARMITA Ruiz Sestamibi Stress:Tc-99m 32.7 IV CARMITA Ruiz Sestamibi Rest: 28-Nov-2021 60 Discovery 630 Stress: 28-Nov-2021 30 Discovery 630 0.4mg Lexiscan. Images obtained in supine and prone position. SPECT RESULTS Technical Quality: Excellent Raw Data Analysis: Normal Image Corrections: No attenuation or motion correction applied Summed Stress Score: 1 Summed Rest Score: 1 Summed Difference Score: 0 PERFUSION FINDINGS Small sized perfusion abnormality of mild severity of mid to apical inferior valverde on rest images with improved tracer uptake in stress images. This is suggestive of attenuation artifact. FUNCTIONAL RESULTS (calculated via Gated SPECT) Stress Image LV EF (%): 57 Stress EDV (mL):136 TID: 1.31 Stress ESV (mL):58 FUNCTIONAL FINDINGS: The left ventricle is normal in size. Transient Ischemia Dilatation of 1.3. The left ventricular ejection fraction is normal with a value of 57%. There is normal left ventricular wall thickening. IMPRESSIONS 1. Myocardial perfusion imaging is normal. Attenuation artifact in inferior wall. 2. Overall left ventricular systolic function is normal without regional wall motion abnormalities, LVEF=57%. 3. Transient Ischemia Dilatation mildly increased at 1.3. This may represent hypertensive response/subendocardial ischemia. 4. EKG portion of the study will be reported separately. Missy Amaya MD (Electronically Signed) Final Date: 28 November 2021 16:46 S
--- NOTE | 2021-11-28 17:59 | P.DS_ITS ---
Discharge Providers Date of Admission: 11/26/21 01:59 Date of Discharge: November 28, 2021 Attending Provider at Admission: Chucky Lomeli MD Attending Provider at Discharge: Sanjay Torrez Primary Care Provider: Anna Roach MD Diagnoses at Discharge Discharge Diagnosis (1) Chest pain: Status: Acute (2) Depression: Status: Acute Qualifiers: Depression Type: major depressive disorder Major depression recurrence: recurrent Active/Remission status: currently active Major depression episode severity: severe Psychotic features: without psychotic features Qualified Code(s): F33.2 - Major depressive disorder, recurrent severe without psychotic features (3) Aorta aneurysm: Status: Acute Qualifiers: Aortic location: thoracic aorta Presence of rupture: without rupture Qualified Code(s): I71.2 - Thoracic aortic aneurysm, without rupture (4) COPD (chronic obstructive pulmonary disease): Status: Acute Qualifiers: COPD type: unspecified COPD Qualified Code(s): J44.9 - Chronic obstructive pulmonary disease, unspecified (5) CAD (coronary artery disease): Status: Acute Qualifiers: Coronary Disease-Associated Artery/Lesion type: [place] artery [place] vs. transplanted heart: [place] heart Associated angina: with stable angina Qualified Code(s): I25.118 - Atherosclerotic heart disease of [place] coronary artery with other forms of angina pectoris (6) Tobacco use: Status: Acute (7) Central apnea: Status: Acute (8) Atherosclerosis of coronary artery: Status: Acute Qualifiers: Coronary Disease-Associated Artery/Lesion type: [place] artery [place] vs. transplanted heart: [place] heart (9) Dyslipidemia: Status: Acute (10) HTN (hypertension): Status: Acute (11) Thoracic back pain: Status: Acute Qualifiers: Chronicity: acute Back pain laterality: left Qualified Code(s): M54.6 - Pain in thoracic spine (12) Cervical radiculopathy: Status: Acute (13) GERD (gastroesophageal reflux disease): Status: Acute Reason for Visit Reason for Visit: chest pain Hospital Course Hospital Course 41-year-old gentleman with history of CAD, stenting, aortic aneurysm, COPD, HTN, has been cutting down on smoking, was hospitalized for assessment of chest pain. With noted T wave inversion in anterolateral leads on EKG, chronic changes. With mild troponin elevation. With normal D-dimer. Unremarkable chest x-ray. Chest pain at the most part abated, he has been feeling much better. Some tenderness on palpation of the left side chest. Was additionally assessed by nu clear perfusion stress test which was noted normal, attenuation artifact in inferior wall. Systolic function overall normal without regional wall motion normality. Discussed with him also regarding TAD mildly increased at 1.3. Possibly secondary to subendocardial ischemia, hypertensive response. He continues on beta-patrick. Heart rates noted intermittently down to low 50s. Continues on aspirin, Plavix, statin, Imdur. Nitroglycerin as needed. Discussed with him also regarding microvascular heart disease. He is encouraged to continue his efforts to quit smoking. He is currently down to about quarter pack. Please assist him to continue to optimize cardiovascular risk factors. He knows to return to the hospital in case of return of persistent/concerning chest discomfort or if not responding to nitroglycerin. He has an appointment scheduled for follow-up with cardiology on December 06. Physical Exam Const: COMMON NORMALS: patient oriented x3 and alert GENERAL APPEARANCE: cooperative ORIENTATION/CONSCIOUSNESS: Yes awake HENMT: COMMON NORMALS: oropharynx normal Neck/C-Spine: COMMON NORMALS: no JVD Resp: COMMON NORMALS: normal respiratory effort and clear to auscultation bilaterally AUSCULTATION: clear to auscultation bilaterally Cardio: COMMON NORMALS: no JVD, regular rhythm, S1 normal heart sound present, S2 normal heart sound present and No murmurs present (Cardio) RHYTHM: regular rhythm HEART SOUNDS: S1 normal heart sound present and S2 normal heart sound present GI: COMMON NORMALS: Normal to inspection, nondistended, normoactive bowel sounds present, Soft to palpation and non-tender PALPATION: Yes Soft to palpation Extremity: COMMON NORMALS: no joint enlargement and no pedal edema Neuro: COMMON NORMALS: patient oriented x3 and moves all extremities SENSORIUM/ORIENTATION: Yes alert Skin: COMMON NORMALS: no rashes or lesions noted GENERAL SKIN EXAM: no rashes or lesions noted Discharge Data Studies Completed and Pending Completed Studies During Hospitalization Category Date Time Status Sestamibi Stress Test Request Routine Exams 11/28/21 06:30 Draft XR chest 1V portable [id number] Stat Exams 11/26/21 00:13 Completed NM ghazal perf SPECT r/s* [id number] Routine Nuc Med 11/28/21 15:14 Completed Pending at discharge Category Date Time Status Sestamibi Stress Test Request Routine Exams 11/27/21 15:14 Stop Req Complete Blood Count w/Auto AM LABS Lab 11/29/21 04:00 Ordered Comprehensive Metabolic Panel AM LABS Lab 11/29/21 04:00 Ordered Magnesium AM LABS Lab 11/29/21 04:00 Ordered Phosphorus AM LABS Lab 11/29/21 04:00 Ordered Radiology Impressions Chest X-Ray 11/26/21 00:13 IMPRESSION: No acute findings. Laboratory Results WBC 8.6 10^3/uL (4.0-10.0) 11/28/21 05:21 RBC 4.57 10^6/uL (4.1-5.3) 11/28/21 05:21 Hgb 13.9 g/dL (11.7-16.6) 11/28/21 05:21 Hct 43.8 % (42.0-52.0) 11/28/21 05:21 MCV 95.8 fl (80-94) H 11/28/21 05:21 MCH 30.4 pg (28.0-34.0) 11/28/21 05:21 MCHC 31.7 g/dL (30.0-36.0) 11/28/21 05:21 RDW 13.2 % (12.1-15.1) 11/28/21 05:21 Plt Count 216 10^3/cmm (130-400) 11/28/21 05:21 MPV 10.2 fL (7.4-10.4) 11/28/21 05:21 Neut % (Auto) 43.1 % 11/28/21 05:21 Lymph % (Auto) 40.5 % 11/28/21 05:21 [place] % (Auto) 11.0 % 11/28/21 05:21 Eos % (Auto) 3.9 % 11/28/21 05:21 Baso % (Auto) 1.0 % 11/28/21 05:21 Neut # (Auto) 3.71 10^3/uL (1.8-7.7) 11/28/21 05:21 Lymph # (Auto) 3.5 10^3/uL (0.8-4.8) 11/28/21 05:21 [place] # (Auto) 1.0 10^3/uL (0.2-0.9) H 11/28/21 05:21 Eos # (Auto) 0.3 10^3/uL (0.0-0.8) 11/28/21 05:21 Baso # (Auto) 0.1 10^3/uL (0.0-0.1) 11/28/21 05:21 Nucleated RBC % (auto) 0 % 11/28/21 05:21 Nucleated RBCs # 0.0 /100WBC 11/28/21 05:21 PT 12.90 SECONDS (12.1-14.9) 11/26/21 00:55 INR 0.94 (0.8-1.2) 11/26/21 00:55 APTT 25.6 SECONDS (23.9-36.7) 11/26/21 00:55 D-Dimer <= 0.27 ug/mIFEU (0-0.59) 11/26/21 15:58 Sodium 142 mmol/L (136-145) 11/28/21 05:21 Potassium 3.8 mmol/L (3.5-5.1) 11/28/21 05:21 Chloride 106 mmol/L (98-107) 11/28/21 05:21 Carbon Dioxide 24 mmol/L (22-29) 11/28/21 05:21 Anion Gap 15.8 (5-19) 11/28/21 05:21 BUN 12 mg/dL (6-20) 11/28/21 05:21 Creatinine 0.6 mg/dL (0.7-1.2) L 11/28/21 05:21 GFR Calculation 149.2 mL/min (90-130) H 11/28/21 05:21 Glucose 97 mg/dL (65-115) 11/28/21 05:21 Estimat Average Glucose 114 11/27/21 02:27 Hemoglobin A1c 5.6 % (4.0-6.0) 11/27/21 02:27 Calculated Osmolality 294 mOsm/kg (285-295) 11/28/21 05:21 Calcium 8.6 mg/dL (8.5-10.5) 11/28/21 05:21 Phosphorus 4.2 mg/dL (2.5-4.5) 11/28/21 05:21 Magnesium 2.0 mg/dL (1.7-2.3) 11/28/21 05:21 Total Bilirubin 0.2 mg/dL (0.15-1.2) 11/28/21 05:21 AST 15 U/L (0-40) 11/28/21 05:21 ALT 40 U/L (0-41) 11/28/21 05:21 Alkaline Phosphatase 115 U/L (40-130) 11/28/21 05:21 Troponin T Baseline 36 ng/L (0-15) H 11/26/21 00:55 Troponin T 120 Minute 39.38 ng/L (0-15) H 11/26/21 03:37 Delta Troponin T 3.38 ABS# (0-10) 11/26/21 03:37 Troponin T Hi Sens 6Hr 40.57 ng/L (0-15) H 11/26/21 06:41 Troponin T Hi Sens 6Hr Delta 4.57 ng/L (0-12) 11/26/21 06:41 NT-Pro-B Natriuret Pep 82 pg/mL (0-125) 11/26/21 00:55 NT-Pro-B Natriuret Pep Cancelled 11/26/21 00:55 Total Protein 5.9 g/dL (6.6-8.7) L 11/28/21 05:21 Albumin 3.7 g/dL (3.5-5.2) 11/28/21 05:21 Globulin 2.2 g/dL (1.3-4.6) 11/28/21 05:21 Triglycerides 659 mg/dL (0-150) H 11/27/21 02:27 Cholesterol 204 mg/dL (0-200) H 11/27/21 02:27 LDL Cholesterol Direct 98 mg/dL (0-100) 11/27/21 02:27 LDL Cholesterol, Calc Not Reportable 11/27/21 02:27 HDL Cholesterol 26 mg/dL (60-100) L 11/27/21 02:27 LDL/HDL Ratio Not Reportable 11/27/21 02:27 Cholesterol/HDL Ratio 7.85 mg/dL (1.0-5.00) H 11/27/21 02:27 TSH 0.52 uIU/mL (0.27-4.20) 11/27/21 02:27 Vitals Last Vital Signs Temp 98.1 F 11/28/21 15:56 Pulse 60 11/28/21 15:56 Resp 15 11/28/21 15:56 BP 131/85 11/28/21 15:56 Pulse Ox 96 11/28/21 15:56 O2 Del Method 11/28/21 15:56 Discharge Plan Discharge Patient Disposition: Home Condition: Stable Prescriptions: Continued omeprazole 40 mg capsule,delayed release(DR/EC) 40 mg PO DAILY 90 Days Qty: 90 3RF aspirin 81 mg tablet,delayed release (DR/EC) 81 mg PO DAILY 90 Days Qty: 90 3RF gabapentin 600 mg tablet 600 mg PO TID 30 Days Qty: 90 2RF duloxetine [Cymbalta] 60 mg capsule,delayed release(DR/EC) 60 mg PO DAILY 90 Days Qty: 90 1RF atorvastatin 80 mg tablet 80 mg PO BEDTIME Qty: 90 1RF clopidogrel 75 mg tablet 75 mg PO DAILY Qty: 90 1RF isosorbide mononitrate 60 mg tablet extended release 24 hr 60 mg PO DAILY Qty: 90 1RF isosorbide mononitrate 30 mg tablet extended release 24 hr 30 mg PO QAM Qty: 90 1RF Rx Instructions: take with 60mg to equal 90mg daily metoprolol succinate 50 mg tablet extended release 24 hr 50 mg PO DAILY Qty: 90 1RF nitroglycerin 0.4 mg tablet, sublingual 0.4 mg sublingual Q5M PRN (Reason: Chest Pain) Qty: 30 6RF Rx Instructions: do not exceed 3 doses per episode Zenpep 40,000-126,000- 168,000 unit capsule,delayed release(DR/EC) 1 cap PO TIDWM Discharge Orders: Discharge Order (Routine); Ordered 11/28/21 Ordered By: Sanjay Torrez Referrals: Missy Amaya MD [Physician] - 12/06/21 (As per appointment) Anna Roach MD [Primary Care Provider] - 4-7 days Patient Instructions: How to Stop Smoking (GEN), Heart Healthy Diet (GEN), Cigarette Smoking and Your Health (GEN), Prevent Cardiovascular Disease (GEN), Opioid Safety Activity Restrictions/Additional Instructions: Please continue your efforts to stop smoking entirely. Continue to optimize risk factors of cardiovascular disease. Please follow-up with your primary doctor and heart doctor for reassessment of microvascular heart disease. Please measure blood pressure 3 times daily at home, record values. Target blood pressure 120/80 or less. Discharge Attestations Time Spent in Discharge Care*: greater than 30 min Quality Metrics Clinical Quality Measures [ No reported AMI, CVA or VTE this stay] Coding Level of Care Code Acute Chg FW DC note Diagnoses Chest pain R07.9 Depression F33.2 Depression Type: major depressive disorder Major depression recurrence: recurrent Active/Remission status: currently active Major depression episode severity: severe Psychotic features: without psychotic features Aorta aneurysm I71.2 Aortic location: thoracic aorta Presence of rupture: without rupture COPD (chronic obstructive pulmonary disease) J44.9 COPD type: unspecified COPD CAD (coronary artery disease) I25.118 Coronary Disease-Associated Artery/Lesion type: [place] artery [place] vs. transplanted heart: [place] heart Associated angina: with stable angina Tobacco use Z72.0 Central apnea R06.81 Atherosclerosis of coronary artery I25.10 Coronary Disease-Associated Artery/Lesion type: [place] artery [place] vs. transplanted heart: [place] heart Dyslipidemia E78.5 HTN (hypertension) I10 Thoracic back pain M54.6 Chronicity: acute Back pain laterality: left Cervical radiculopathy M54.12 GERD (gastroesophageal reflux disease) K21.9
--- NOTE | 2021-11-28 18:22 | PC.NURSE ---
dc'd pts iv. discharge instructions given. verbalized understanding, no further questions. pt left ambulatory to his private vehicle.
--- NOTE | 2021-11-28 18:28 | PC.NURSE ---
Dr. Ramos notified of patients bradycardia in the 40's. I held metoprolol am dose and notified him. Pt remained zane all day, non symptomatic, MD aware.
== END 2021-11-28 18:28 | disposition home or self-care (01) ==
LOC: ER 11-26 02:02 → MEDSURG 11-26 03:56
PROVIDERS: Internal Medicine; Admitting Provider Family Medicine; Emergency Provider Emergency Medicine; PCP Family Medicine; Visit Provider Internal Medicine
DX: R07.9 Chest pain, unspecified (principal); I25.118 Atherosclerotic heart disease of native coronary artery with other forms of angina pectoris; E78.5 Hyperlipidemia, unspecified; I10 Essential (primary) hypertension; J44.9 Chronic obstructive pulmonary disease, unspecified; K21.9 Gastro-esophageal reflux disease without esophagitis; K22.70 Barrett's esophagus without dysplasia; F33.2 Major depressive disorder, recurrent severe without psychotic features; I71.2 Thoracic aortic aneurysm, without rupture; M54.6 Pain in thoracic spine; M54.12 Radiculopathy, cervical region; R06.81 Apnea, not elsewhere classified; Z79.82 Long term (current) use of aspirin; F17.210 Nicotine dependence, cigarettes, uncomplicated; Z95.5 Presence of coronary angioplasty implant and graft; Z91.14 Patient's other noncompliance with medication regimen
CPT/HCPCS: 36415; 71045; 78452; 80053; 80061; 83036; 83721; 83735; 83880; 84100; 84443; 84484; 85025; 85378; 85610; 85730; 93005; 93017; 94664; 96372; 96374; 96375; 99285; A9500; C9113; G0378; J1650; J2270; J2405; J2785

== ENCOUNTER 2022-01-03 21:49 | Emergency (ER) | payer MEDICAID, SELFPAY ==
[2022-01-03 21:50] VITALS: BP 128/81; PULSE 67; RESP 16; TEMP 36.5; O2SAT 96
--- NOTE | 2022-01-03 21:59 | XRR_ITS ---
PROCEDURE INFORMATION: Exam: XR Abdomen Exam date and time: 01/03/2022 10:12 PM Age: 41 years old Clinical indication: Abdominal pain; Acute; Additional info: Abd pain TECHNIQUE: Imaging protocol: Radiologic exam of the abdomen. Views: Frontal supine view of the abdomen. 1 View. COMPARISON: CR XR KUB [id number] 10/13/2021 8:45 AM FINDINGS: Tubes, catheters and devices: Metallic clips are seen in the right hypochondrium. Gastrointestinal tract: Fecal matter and gas are seen within the colon. Bones/joints: Unremarkable. Other findings: Nonobstructive gaseous pattern. XR/XR KUB [id number] IMPRESSION: 1. Gaseous and fecal matter within the colon. 2. Nonobstructive gaseous pattern.
--- NOTE | 2022-01-03 22:01 | W.ED.ABDPA2 ---
HPI - Abdominal Pain General: Chief Complaint: Abdominal Pain Stated Complaint: abd pain Time Seen by Provider: 01/03/22 21:52 Source: patient Mode of arrival: ambulatory Limitations: no limitations History of Present Illness: 41-year-old male has a history of hiatal hernia states has been having abdominal pain for months. He states that that seemed to have worsened slightly over the last month had nausea denies any vomiting states his pain is currently a 5 out of 10 denies any fevers he has not been seeing anyone for this. Denies any chest pain. Patient is comfortable in the room. Associated Symptoms: Denies chills, dysuria and fever(s) Review of Systems Const: Denies: fever(s), chills, body aches or change in appetite Eyes: Denies: blurry vision or eye discomfort ENMT: Denies: throat pain or dental pain Card: Denies: chest pain Resp: Denies: dyspnea GI: Reports: abdominal pain : Denies: dysuria Musc: Denies: neck pain or back pain Skin/Breast: Denies: rash Neuro: Denies: headache(s) Psych: Denies: depression Anjum/Lymph: Denies: easy bruising All/Imm: Denies: urticaria PFSH ED PFSH: Medical History Aorta aneurysm Atherosclerosis of coronary artery COPD (chronic obstructive pulmonary disease) Depression Dyslipidemia Gastroesophageal reflux disease Gross hematuria HTN (hypertension) Presence of stent in LAD coronary artery Urolithiasis Surgical History H/O colonoscopy with polypectomy History of cholecystectomy Hx of heart artery stent S/P ureteral stent placement Status post laser lithotripsy of ureteral calculus Family History Father Heart disease Alcoholic Lung disease Mother Healthy adult Social History Smoking and tobacco status: current every day smoker cigarettes Packs smoked per day: 0.5 Years cigarettes smoked: 20 Alcohol intake: current Alcohol intake frequency: holidays/special occasions only Marital status: Current occupational status: unemployed History of recent travel: No Physical Exam Const: COMMON NORMALS: no acute distress, patient oriented x3 and healthy appearing HENMT: COMMON NORMALS: normocephalic and atraumatic HEAD & SCALP: normocephalic and atraumatic Eye: COMMON NORMALS: Equal, round and reactive pupils present and EOMs intact bilaterally PUPIL: Yes Equal, round and reactive pupils present Neck/C-Spine: COMMON NORMALS: full ROM and supple Chest: COMMONS NORMALS: normal inspection of the chest and normal palpation of entire chest wall Resp: COMMON NORMALS: normal respiratory effort, No retractions, No use of accessory muscles and clear to auscultation bilaterally AUSCULTATION: clear to auscultation bilaterally Cardio: COMMON NORMALS: regular rate, regular rhythm and No murmurs present (Cardio) RATE: regular rate RHYTHM: regular rhythm GI: COMMON NORMALS: Normal to inspection, nondistended, normoactive bowel sounds present, Soft to palpation, non-tender and no masses PALPATION: Yes Soft to palpation Extremity: COMMON NORMALS: normal to inspection and full ROM Neuro: COMMON NORMALS: patient oriented x3, moves all extremities and no focal motor deficits Psych: COMMON NORMALS: mental status grossly normal, Normal thought process present and cooperative THOUGHT PROCESS: Normal thought process present Skin: COMMON NORMALS: no rashes or lesions noted and no wounds GENERAL SKIN EXAM: no rashes or lesions noted Course Vital Signs: Vital signs: Vital Signs Temperature 97.7 F 01/03/22 21:50 Pulse Rate 71 01/03/22 23:16 Respiratory Rate 15 01/03/22 23:16 Blood Pressure 116/85 01/03/22 23:16 Pulse Oximetry 98 01/03/22 23:16 Oxygen Delivery Me thod 01/03/22 22:12 MDM - Abdominal Pain Medical Decision Making Patient presents here with abdominal pain has been chronic in nature. His exam here is benign blood work is normal we will get him follow-up with general surgery he is to return if worsening. Lab Data : 01/03/22 22:16 01/03/22 22:16 Labs/Radiology: Laboratory Results WBC 11.1 10^3/uL (4.0-10.0) H 01/03/22 22:16 RBC 4.70 10^6/uL (4.1-5.3) 01/03/22 22:16 Hgb 14.5 g/dL (11.7-16.6) 01/03/22 22:16 Hct 44.8 % (42.0-52.0) 01/03/22 22:16 MCV 95.3 fl (80-94) H 01/03/22 22:16 MCH 30.9 pg (28.0-34.0) 01/03/22 22:16 MCHC 32.4 g/dL (30.0-36.0) 01/03/22 22:16 RDW 14.2 % (12.1-15.1) 01/03/22 22:16 Plt Count 293 10^3/cmm (130-400) 01/03/22 22:16 MPV 9.9 fL (7.4-10.4) 01/03/22 22:16 Neut % (Auto) 60.5 % 01/03/22 22:16 Lymph % (Auto) 24.5 % 01/03/22 22:16 Norman % (Auto) 8.6 % 01/03/22 22:16 Eos % (Auto) 5.2 % 01/03/22 22:16 Baso % (Auto) 0.9 % 01/03/22 22:16 Neut # (Auto) 6.69 10^3/uL (1.8-7.7) 01/03/22 22:16 Lymph # (Auto) 2.7 10^3/uL (0.8-4.8) 01/03/22 22:16 Norman # (Auto) 1.0 10^3/uL (0.2-0.9) H 01/03/22 22:16 Eos # (Auto) 0.6 10^3/uL (0.0-0.8) 01/03/22 22:16 Baso # (Auto) 0.1 10^3/uL (0.0-0.1) 01/03/22 22:16 Nucleated RBC % (auto) 0 % 01/03/22 22:16 Nucleated RBCs # 0.0 /100WBC 01/03/22 22:16 Sodium 140 mmol/L (136-145) 01/03/22 22:16 Potassium 3.9 mmol/L (3.5-5.1) 01/03/22 22:16 Chloride 104 mmol/L (98-107) 01/03/22 22:16 Carbon Dioxide 23 mmol/L (22-29) 01/03/22 22:16 Anion Gap 16.9 (5-19) 01/03/22 22:16 BUN 14 mg/dL (6-20) 01/03/22 22:16 Creatinine 0.6 mg/dL (0.7-1.2) L 01/03/22 22:16 GFR Calculation 149.2 mL/min (90-130) H 01/03/22 22:16 Glucose 106 mg/dL (65-115) 01/03/22 22:16 Calculated Osmolality 291 mOsm/kg (285-295) 01/03/22 22:16 Calcium 9.3 mg/dL (8.5-10.5) 01/03/22 22:16 Total Bilirubin 0.3 mg/dL (0.15-1.2) 01/03/22 22:16 AST 25 U/L (0-40) 01/03/22 22:16 ALT 30 U/L (0-41) 01/03/22 22:16 Alkaline Phosphatase 127 U/L (40-130) 01/03/22 22:16 Total Protein 6.8 g/dL (6.6-8.7) 01/03/22 22:16 Albumin 4.2 g/dL (3.5-5.2) 01/03/22 22:16 Globulin 2.6 g/dL (1.3-4.6) 01/03/22 22:16 Lipase 29 U/L (13-60) 01/03/22 22:16 Discharge Plan Discharge Patient Disposition: Home Clinical Impression: Abdominal pain Condition: Stable Prescriptions: No Action omeprazole 40 mg capsule,delayed release(DR/EC) 40 mg PO DAILY 90 Days Qty: 90 3RF aspirin 81 mg tablet,delayed release (DR/EC) 81 mg PO DAILY 90 Days Qty: 90 3RF gabapentin 600 mg tablet 600 mg PO TID 30 Days Qty: 90 2RF duloxetine [Cymbalta] 60 mg capsule,delayed release(DR/EC) 60 mg PO DAILY 90 Days Qty: 90 1RF atorvastatin 80 mg tablet 80 mg PO BEDTIME Qty: 90 1RF isosorbide mononitrate 60 mg tablet extended release 24 hr 60 mg PO DAILY Qty: 90 1RF isosorbide mononitrate 30 mg tablet extended release 24 hr 30 mg PO QAM Qty: 90 1RF Rx Instructions: take with 60mg to equal 90mg daily nitroglycerin 0.4 mg tablet, sublingual 0.4 mg sublingual Q5M PRN (Reason: Chest Pain) Qty: 30 6RF Rx Instructions: do not exceed 3 doses per episode Zenpep 40,000-126,000- 168,000 unit capsule,delayed release(DR/EC) 1 cap PO TIDWM Discharge Orders: Discharge ED (Routine); Ordered 01/03/22 Ordered By: Oscar Mejia Referrals: Ravin Foreman MD [Physician] - 1-3 days Anna Roach MD [Primary Care Provider] - Discharge Diet: Advance as tolerated Discharge Activity: Resume usual activity Patient Instructions: Abdominal Pain (ED) Coding Level of Care Code ED Accounts Payable Clerk for Chg Fwd Exam Comprehensive
[2022-01-03] MEDS: ondansetron 2 mg/ML SDV 2 mL 4 MG IVP (22:07)
[2022-01-03 22:08] VITALS: RESP 16
[2022-01-03] MEDS: HYDROmorphone 1 mg/mL INJ 1 mL 0.5 MG IVP (22:08)
[2022-01-03 22:12] VITALS: BP 135/81; PULSE 70; RESP 16; O2SAT 94
[2022-01-03 22:24] LABS: Basophils # 0.1 10^3/uL (0.0-0.1); Basophils % 0.9 %; Eosinophils # 0.6 10^3/uL (0.0-0.8); Eosinophils % 5.2 %; Hematocrit 44.8 % (42.0-52.0); Hemoglobin 14.5 g/dL (11.7-16.6); Lymphocytes # 2.7 10^3/uL (0.8-4.8); Lymphocytes % 24.5 %; Mean Corpuscular HGB Conc 32.4 g/dL (30.0-36.0); Mean Corpuscular Hemoglobin 30.9 pg (28.0-34.0); Mean Corpuscular Volume 95.3 fl (80-94); Mean Platelet Volume 9.9 fL (7.4-10.4); Monocytes % 8.6 %; Neutrophils # 6.69 10^3/uL (1.8-7.7); Neutrophils % 60.5 %; Nucleated Red Blood Cells % 0 %; Platelet Count 293 10^3/cmm (130-400); Red Cell Distribution Width 14.2 % (12.1-15.1); White Blood Count 11.1 10^3/uL (4.0-10.0)
--- NOTE | 2022-01-03 22:47 | ECG_ITS ---
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 Measurements Intervals [place] Rate: 55 P: 2 TN: 143 QRS: 46 QRSD: 102 T: 1 QT: 410 QTc: 394 Interpretive Statements SINUS BRADYCARDIA MODERATE T-WAVE ABNORMALITY, CONSIDER ANTERIOR ISCHEMIA [-0.1+ mV T-WAVE IN V3/V4] Compared to ECG 11/26/2021 06:22:22 Sinus rhythm no longer present T-wave abnormality still present Possible ischemia still present Electronically Signed On 01-04-2022 20:53:45 CDT by Don Bradley M.D. [email or web address]/store/[id number]
[2022-01-03 22:50] LABS: Alanine Aminotransferase 30 U/L (0-41); Albumin Level 4.2 g/dL (3.5-5.2); Alkaline Phosphatase 127 U/L (40-130); Anion Gap 16.9 (5-19); Aspartate Amino Transferase 25 U/L (0-40); Blood Urea Nitrogen 14 mg/dL (6-20); Calcium 9.3 mg/dL (8.5-10.5); Carbon Dioxide 23 mmol/L (22-29); Chloride 104 mmol/L (98-107); Globulin 2.6 g/dL (1.3-4.6); Glomerular Filtration Rate 149.2 mL/min (90-130); Glucose 106 mg/dL (65-115); Lipase 29 U/L (13-60); Osmolality Calculated 291 mOsm/kg (285-295); Potassium 3.9 mmol/L (3.5-5.1); Sodium 140 mmol/L (136-145); Total Bilirubin 0.3 mg/dL (0.15-1.2); Total Protein 6.8 g/dL (6.6-8.7)
[2022-01-03 22:58] VITALS: BP 125/78; PULSE 55; RESP 16; O2SAT 95
[2022-01-03 23:16] VITALS: BP 116/85; PULSE 71; RESP 15; O2SAT 98
--- NOTE | 2022-01-04 13:17 | DCPLANNER ---
Addendum entered by Hoda Cox 01/19/22 14:17: Patient had a follow up appointment scheduled with general surgery - patient did attend appointment. Addendum entered by Hoda Cox 01/06/22 13:07: Patient has a follow up appointment scheduled for Sunday, January 09, 2022 at 8:[address] Foreman at general surgery. Clinic will call patient with appointment information. Original Note: api product manager had message to schedule a follow up appointment for patient with general surgery. api product manager sent patients information to the front office staff at general surgery. Patients information will be printed and reviewed. Clinic will call patient with appointment information.
== END 2022-01-03 23:18 | disposition home or self-care (01) ==
PROVIDERS: Emergency Provider Emergency Medicine; PCP Family Medicine
DX: R10.9 Unspecified abdominal pain (principal); J44.9 Chronic obstructive pulmonary disease, unspecified; E78.5 Hyperlipidemia, unspecified; I10 Essential (primary) hypertension; I25.10 Atherosclerotic heart disease of native coronary artery without angina pectoris; F17.210 Nicotine dependence, cigarettes, uncomplicated; Z79.82 Long term (current) use of aspirin; Z95.5 Presence of coronary angioplasty implant and graft
CPT/HCPCS: 74018; 80053; 83690; 85025; 93005; 96374; 96375; 99285; J1170; J2405

== ENCOUNTER 2022-01-08 00:39 | Emergency (ER) | payer MEDICAID, SELFPAY ==
[2022-01-08] VITALS (7 sets, daily range): BP systolic 115–146; BP diastolic 82–96; PULSE 53–98; RESP 13–18; TEMP 36.7; O2SAT 93–96; BMI 27.8
--- NOTE | 2022-01-08 00:52 | ECG_ITS ---
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 Measurements Intervals [place] Rate: 92 P: 22 MO: 162 QRS: 32 QRSD: 97 T: 21 QT: 338 QTc: 420 Interpretive Statements SINUS RHYTHM POSSIBLE LEFT ATRIAL ENLARGEMENT [-0.1mV P-WAVE IN V1/V2] ST DEVIATION AND MODERATE T-WAVE ABNORMALITY, CONSIDER ANTERIOR ISCHEMIA [-0.1+ mV T-WAVE IN V3/V4] Compared to ECG 01/03/2022 22:59:20 Sinus bradycardia no longer present T-wave abnormality still present Possible ischemia still present Electronically Signed On 01-08-2022 18:16:49 CDT by Don Bradley M.D. [id number] f
[2022-01-08 01:04] LABS: Basophils # 0.1 10^3/uL (0.0-0.1); Basophils % 0.9 %; Eosinophils # 0.9 10^3/uL (0.0-0.8); Eosinophils % 6.3 %; Hematocrit 45.9 % (42.0-52.0); Lymphocytes # 3.5 10^3/uL (0.8-4.8); Lymphocytes % 25.6 %; Mean Corpuscular HGB Conc 32.7 g/dL (30.0-36.0); Mean Corpuscular Volume 94.8 fl (80-94); Mean Platelet Volume 9.8 fL (7.4-10.4); Monocytes # 1.2 10^3/uL (0.2-0.9); Monocytes % 9.1 %; Neutrophils # 7.87 10^3/uL (1.8-7.7); Neutrophils % 57.8 %; Nucleated Red Blood Cells % 0 %; Platelet Count 313 10^3/cmm (130-400); Red Blood Count 4.84 10^6/uL (4.1-5.3); Red Cell Distribution Width 14.2 % (12.1-15.1); White Blood Count 13.6 10^3/uL (4.0-10.0)
--- NOTE | 2022-01-08 01:20 | XRR_ITS ---
PROCEDURE INFORMATION: Exam: XR Chest Exam date and time: 01/08/2022 1:32 AM Age: 41 years old Clinical indication: Chest pressure; Prior surgery; Surgery date: 6+ months; Surgery type: Heart stent - left coronary artery; Patient HX: Chest pain, n/v; Additional info: Cp TECHNIQUE: Imaging protocol: Radiologic exam of the chest. Views: 1 view. COMPARISON: CR (CHEST, ) 11/26/2021 12:28 AM FINDINGS: Lungs: Unremarkable. No consolidation. Pleural spaces: Unremarkable. No pleural effusion. No pneumothorax. Heart/Mediastinum: Unremarkable. No cardiomegaly. Diaphragm: Stable elevation of the left hemidiaphragm. Bones/joints: Unremarkable. XR/XR chest 1V portable [id number] IMPRESSION: No acute disease.
[2022-01-08 01:23] LABS: Albumin Level 4.4 g/dL (3.5-5.2); Alkaline Phosphatase 142 U/L (40-130); Anion Gap 16.2 (5-19); Blood Urea Nitrogen 13 mg/dL (6-20); Calcium 9.6 mg/dL (8.5-10.5); Carbon Dioxide 23 mmol/L (22-29); Chloride 106 mmol/L (98-107); Globulin 2.7 g/dL (1.3-4.6); Glomerular Filtration Rate 124.9 mL/min (90-130); Glucose 109 mg/dL (65-115); Osmolality Calculated 293 mOsm/kg (285-295); Potassium 4.2 mmol/L (3.5-5.1); Sodium 141 mmol/L (136-145); Total Bilirubin 0.2 mg/dL (0.15-1.2); Total Protein 7.1 g/dL (6.6-8.7)
[2022-01-08 01:28] LABS: Troponin(5th) Baseline 17 ng/L (0-15)
[2022-01-08] MEDS: ondansetron 2 mg/ML SDV 2 mL 4 MG IVP (01:44)
[2022-01-08] MEDS: lidocaine 2% viscous 15 ML, aluminum-mag hydrox-simethicon 30 ML, sucralfate oral liq 1 GM PO (01:44)
[2022-01-08] MEDS: morphine 4 mg/mL SDV 1 mL IVP (01:44)
[2022-01-08 02:09] LABS: Alanine Aminotransferase 25 U/L (0-41); Aspartate Amino Transferase 17 U/L (0-40)
--- NOTE | 2022-01-08 02:41 | ED_ITS ---
HPI - Chest Pain General: Chief Complaint: Chest Pain Stated Complaint: Chest Pains Time Seen by Provider: 01/08/22 00:47 Source: patient History of Present Illness: 41-year-old male well-known to the ER. He presents with chest discomfort. He was seen a few days ago for belly discomfort. He was admitted 2 months ago for chest discomfort, and ruled out f or coronary disease with stress testing. He notes his chest started hurting a couple hours prior to arrival. He was laying down to go to bed. He had episodes of vomiting and nausea with the pain he denies fever or cough. 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 past history: other Onset (ago): hour(s) Timing of current episode: constant Prior episodes: Yes (Many) Onset: during rest Quality: aching and sharp Relieving factors: nothing Exacerbating factors: nothing Context: other Associated symptoms: Reports abdominal pain, diaphoresis, dyspnea, fever(s), leg edema, nausea and vomiting; Deny palpitations Treatment prior to arrival: none Risk Factors: Coronary artery disease risk factors: smoking history Review of Systems Const: Reports: fever(s) and diaphoresis Eyes: Denies: change in vision Card: Denies: chest pain or palpitations Resp: Reports: dyspnea GI: Reports: abdominal pain, nausea and vomiting : Denies: flank pain Skin/Breast: Denies: rash Neuro: Denies: headache(s), weakness in extremities, dizziness or confusion PFSH ED PFSH: Medical History Aorta aneurysm Atherosclerosis of coronary artery COPD (chronic obstructive pulmonary disease) Depression Dyslipidemia Gastroesophageal reflux disease Gross hematuria HTN (hypertension) Presence of stent in LAD coronary artery Urolithiasis Surgical History H/O colonoscopy with polypectomy History of cholecystectomy Hx of heart artery stent S/P ureteral stent placement Status post laser lithotripsy of ureteral calculus Family History Father Heart disease Alcoholic Lung disease Mother Healthy adult Social History Smoking and tobacco status: current every day smoker cigarettes Packs smoked per day: 0.5 Years cigarettes smoked: 20 Alcohol intake: current Alcohol intake frequency: holidays/special occasions only Marital status: Current occupational status: unemployed History of recent travel: No Physical Exam Const: COMMON NORMALS: no acute distress GENERAL APPEARANCE: cooperative; not ill appearing and not frail appearing HENMT: COMMON NORMALS: normocephalic, atraumatic and Normal external nose pre sent HEAD & SCALP: normocephalic and atraumatic FACE & SINUS: normal facial exam and face symmetric NOSE: Normal external nose present Eye: COMMON NORMALS: Equal, round and reactive pupils present and EOMs intact bilaterally PUPIL: Yes Equal, round and reactive pupils present Neck/C-Spine: GENERAL: Yes trachea midline Chest: CHEST: Yes Symmetrical chest wall rise Resp: COMMON NORMALS: normal respiratory effort, No retractions, No use of accessory muscles and clear to auscultation bilaterally AUSCULTATION: clear to auscultation bilaterally Cardio: COMMON NORMALS: regular rate and regular rhythm RATE: regular rate RHYTHM: regular rhythm GI: COMMON NORMALS: Normal to inspection, nondistended, normoactive bowel sounds present Extremity: COMMON NORMALS: no pedal edema Neuro: SATHISH COMA SCALE: document GCS findings [place] coma scale eye opening: Spontaneous Sathish coma scale verbal response: Orientated [place] coma scale motor response: Obey commands [place] coma scale total score: 15 SENSORY EXAM: Yes extremities (intact) Psych: COMMON NORMALS: speech normal SPEECH: Yes normal speech Skin: COMMON NORMALS: no rashes or lesions noted GENERAL SKIN EXAM: no rashes or lesions noted Course Vital Signs: Vital signs: Vital Signs Temperature 98.1 F 01/08/22 00:45 Pulse Rate 53 L 01/08/22 03:00 Respiratory Rate 14 01/08/22 03:00 Blood Pressure 127/96 01/08/22 03:00 Pulse Oximetry 93 01/08/22 03:00 Oxygen Delivery Me thod 01/08/22 00:45 MDM - Chest Pain Medical Decision Making 5-year-old male with a frequent complaint of belly pain in the ER. He presents with similar complaints this evening. His hemoglobin is 15. White blood cell count is 13. BMP is normal. Alk phos is mildly elevated. His belly is nontender. His vitals are normal. His EKG shows a sinus rhythm with a normal axis. Intervals are normal. No ST elevation. Rate is 90. There is minimal depression in V3 through V6 consistent with his older EKGs first troponin is 17. We will await a second. GI cocktail did not seem to help his pain. Vitals blood pressure 127/96, heart rate 54, saturation 92% on room air respirations 15. 2-hour troponin is 9. EKG is not changed. He will be allowed home. Lab Data : 01/08/22 00:55 01/08/22 00:55 Radiology Impressions Chest X-Ray 01/08/22 01:20 IMPRESSION: No acute disease. Laboratory Results WBC 13.6 10^3/uL (4.0-10.0) H 01/08/22 00:55 RBC 4.84 10^6/uL (4.1-5.3) 01/08/22 00:55 Hgb 15.0 g/dL (11.7-16.6) 01/08/22 00:55 Hct 45.9 % (42.0-52.0) 01/08/22 00:55 MCV 94.8 fl (80-94) H 01/08/22 00:55 MCH 31.0 pg (28.0-34.0) 01/08/22 00:55 MCHC 32.7 g/dL (30.0-36.0) 01/08/22 00:55 RDW 14.2 % (12.1-15.1) 01/08/22 00:55 Plt Count 313 10^3/cmm (130-400) 01/08/22 00:55 MPV 9.8 fL (7.4-10.4) 01/08/22 00:55 Neut % (Auto) 57.8 % 01/08/22 00:55 Lymph % (Auto) 25.6 % 01/08/22 00:55 Owen % (Auto) 9.1 % 01/08/22 00:55 Eos % (Auto) 6.3 % 01/08/22 00:55 Baso % (Auto) 0.9 % 01/08/22 00:55 Neut # (Auto) 7.87 10^3/uL (1.8-7.7) H 01/08/22 00:55 Lymph # (Auto) 3.5 10^3/uL (0.8-4.8) 01/08/22 00:55 Owen # (Auto) 1.2 10^3/uL (0.2-0.9) H 01/08/22 00:55 Eos # (Auto) 0.9 10^3/uL (0.0-0.8) H 01/08/22 00:55 Baso # (Auto) 0.1 10^3/uL (0.0-0.1) 01/08/22 00:55 Nucleated RBC % (auto) 0 % 01/08/22 00:55 Nucleated RBCs # 0.0 /100WBC 01/08/22 00:55 Sodium 141 mmol/L (136-145) 01/08/22 00:55 Potassium 4.2 mmol/L (3.5-5.1) 01/08/22 00:55 Chloride 106 mmol/L (98-107) 01/08/22 00:55 Carbon Dioxide 23 mmol/L (22-29) 01/08/22 00:55 Anion Gap 16.2 (5-19) 01/08/22 00:55 BUN 13 mg/dL (6-20) 01/08/22 00:55 Creatinine 0.7 mg/dL (0.7-1.2) 01/08/22 00:55 GFR Calculation 124.9 mL/min (90-130) 01/08/22 00:55 Glucose 109 mg/dL (65-115) 01/08/22 00:55 Calculated Osmolality 293 mOsm/kg (285-295) 01/08/22 00:55 Calcium 9.6 mg/dL (8.5-10.5) 01/08/22 00:55 Total Bilirubin 0.2 mg/dL (0.15-1.2) 01/08/22 00:55 AST 17 U/L (0-40) 01/08/22 00:55 ALT 25 U/L (0-41) 01/08/22 00:55 Alkaline Phosphatase 142 U/L (40-130) H 01/08/22 00:55 Troponin T Baseline 17 ng/L (0-15) H 01/08/22 00:55 Troponin T 120 Minute 9.01 ng/L (0-15) 01/08/22 02:39 Delta Troponin T -7.99 ABS# (0-10) L 01/08/22 02:39 Total Protein 7.1 g/dL (6.6-8.7) 01/08/22 00:55 Albumin 4.4 g/dL (3.5-5.2) 01/08/22 00:55 Globulin 2.7 g/dL (1.3-4.6) 01/08/22 00:55 Discharge Plan Discharge Patient Disposition: Home Clinical Impression: Chest pain Condition: Stable Prescriptions: No Action omeprazole 40 mg capsule,delayed release(DR/EC) 40 mg PO DAILY 90 Days Qty: 90 3RF aspirin 81 mg tablet,delayed release (DR/EC) 81 mg PO DAILY 90 Days Qty: 90 3RF gabapentin 600 mg tablet 600 mg PO TID 30 Days Qty: 90 2RF duloxetine [Cymbalta] 60 mg capsule,delayed release(DR/EC) 60 mg PO DAILY 90 Days Qty: 90 1RF atorvastatin 80 mg tablet 80 mg PO BEDTIME Qty: 90 1RF isosorbide mononitrate 60 mg tablet extended release 24 hr 60 mg PO DAILY Qty: 90 1RF isosorbide mononitrate 30 mg tablet extended release 24 hr 30 mg PO QAM Qty: 90 1RF Rx Instructions: take with 60mg to equal 90mg daily nitroglycerin 0.4 mg tablet, sublingual 0.4 mg sublingual Q5M PRN (Reason: Chest Pain) Qty: 30 6RF Rx Instructions: do not exceed 3 doses per episode Zenpep 40,000-126,000- 168,000 unit capsule,delayed release(DR/EC) 1 cap PO TIDWM Discharge Orders: Discharge ED (Routine); Ordered 01/08/22 Ordered By: Earl Michael Referrals: Anna Roach MD [Primary Care Provider] - 1-3 days Coding Level of Care Code ED Broker Associate for Chg Fwd Exam Comprehensive
[2022-01-08] MEDS: HYDROmorphone 1 mg/mL INJ 1 mL IVP (02:46)
[2022-01-08] MEDS: ketorolac 30 mg/mL INJ IVP (02:46)
--- NOTE | 2022-01-08 02:52 | ECG_ITS ---
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 Measurements Intervals [place] Rate: 71 P: 34 TN: 165 QRS: 50 QRSD: 90 T: 47 QT: 343 QTc: 374 Interpretive Statements SINUS RHYTHM WITH SINUS ARRHYTHMIA MODERATE T-WAVE ABNORMALITY, CONSIDER ANTERIOR ISCHEMIA [-0.1+ mV T-WAVE IN V3/V4] Compared to ECG 01/03/2022 22:59:20 Sinus bradycardia no longer present T-wave abnormality still present Possible ischemia still present Electronically Signed On 01-08-2022 18:28:50 CDT by Don Bradley M.D. [id number]
[2022-01-08 03:02] LABS: Troponin 5 2HR 9.01 ng/L (0-15)
[2022-01-08 03:08] LABS: Troponin 5 2HR Delta -7.99 ABS# (0-10)
--- NOTE | 2022-01-08 04:21 | PC.NURSE ---
patient instructed of need to wait in room for approx 4 hours post Narcotic administration . patient becoming angry and states here take my keys. i just want to sit in my car and sleep. i wont leave til 630 then. patient instructed of need to wait in room . patietn states im just gonna go and sleep in my car. patient given discharge instructions and instrucgted no to drive and if seen leaving parking lot police will be called. patient angry upon leaving er. Patient removed own iv. iv site intact with no bleeding noted upon leaving am. patient ambulatory with no difficulties to vehicle. Pateint AOx4 upon discharge.
== END 2022-01-08 04:25 | disposition home or self-care (01) ==
PROVIDERS: Emergency Provider Emergency Medicine; PCP Family Medicine
DX: R07.9 Chest pain, unspecified (principal); I10 Essential (primary) hypertension; E78.5 Hyperlipidemia, unspecified; K21.9 Gastro-esophageal reflux disease without esophagitis; I25.10 Atherosclerotic heart disease of native coronary artery without angina pectoris; J44.9 Chronic obstructive pulmonary disease, unspecified; F17.210 Nicotine dependence, cigarettes, uncomplicated; Z79.82 Long term (current) use of aspirin
CPT/HCPCS: 71045; 80053; 84484; 85025; 93005; 96374; 96375; 99285; J1170; J1885; J2270; J2405

== ENCOUNTER 2022-01-12 19:50 | Emergency (ER) | payer MEDICAID, SELFPAY ==
[2022-01-12 19:56] VITALS: BP 108/72; PULSE 96; RESP 16; TEMP 36.7; O2SAT 96
--- NOTE | 2022-01-12 19:59 | ECG_ITS ---
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 Measurements Intervals [place] Rate: 91 P: 49 CA: 146 QRS: 54 QRSD: 98 T: 65 QT: 306 QTc: 377 Interpretive Statements SINUS RHYTHM WITH SINUS ARRHYTHMIA NONSPECIFIC T-WAVE ABNORMALITY Compared to ECG 01/08/2022 02:41:28 Possible ischemia no longer present T-wave abnormality still present Electronically Signed On 01-13-2022 6:32:57 CDT by Missy Amaya M.D. [email or web address] rehabilitation [email or web address] [email or web address] [email or web address]/store/NU/[id number] f
--- NOTE | 2022-01-12 21:23 | XRR_ITS ---
PROCEDURE INFORMATION: Exam: XR Chest Exam date and time: 01/12/2022 9:31 PM Age: 41 years old Clinical indication: Chest pressure and chest wall pain; Prior surgery; Surgery date: 6+ months; Additional info: Cp TECHNIQUE: Imaging protocol: Radiologic exam of the chest. Views: 1 view. COMPARISON: CR (CHEST, ) 01/08/2022 1:32 AM FINDINGS: Lungs: Unremarkable. No consolidation. Pleural spaces: Unremarkable. No pleural effusion. No pneumothorax. Heart/Mediastinum: Unremarkable. No cardiomegaly. Bones/joints: Unremarkable. XR/XR chest 1V portable [id number] IMPRESSION: No acute findings.
--- NOTE | 2022-01-12 21:27 | ED_ITS ---
HPI - Chest Pain General: Chief Complaint: Chest Pain Stated Complaint: Chest Pain Time Seen by Provider: 01/12/22 21:22 History of Present Illness: Mr. Rico is a 41-year-old gentleman with history of chest pain, aortic aneurysm, COPD, CAD, hypertension, obesity, GERD, hiatal hernia presenting to the emergency department for chest pain. He has a history of chest pain however it has been intermittent today. Severe left anterior chest isolated to a small area associated with generalized symptoms. Some radiation to the abdomen and neck as well as arm. Intensity symptoms has mary ntained. No other specific changes in health, exacerbating, or alleviating factors identified. Onset (ago): hour(s) Timing of current episode: episodic Prior episodes: Yes Onset: during rest Pain location: left chest Pain radiation: left arm, back, jaw/teeth and abdomen Severity: severe Quality: sharp Associated symptoms: Reports dyspnea and nausea Review of Systems General: Reports: 10 or more systems reviewed and unremarkable except in HPI and below Resp: Reports: dyspnea GI: Reports: nausea PFSH ED PFSH: Medical History Aorta aneurysm Atherosclerosis of coronary artery COPD (chronic obstructive pulmonary disease) Depression Dyslipidemia Gastroesophageal reflux disease Gross hematuria HTN (hypertension) Presence of stent in LAD coronary artery Urolithiasis Surgical History H/O colonoscopy with polypectomy History of cholecystectomy Hx of heart artery stent S/P ureteral stent placement Status post laser lithotripsy of ureteral calculus Family History Father Heart disease Alcoholic Lung disease Mother Healthy adult Social History Smoking and tobacco status: current every day smoker cigarettes Packs smoked per day: 0.5 Years cigarettes smoked: 20 Alcohol intake: current Alcohol intake frequency: holidays/special occasions only Marital status: Current occupational status: unemployed History of recent travel: No Physical Exam Const: COMMON NORMALS: alert GENERAL APPEARANCE: cooperative and well developed HENMT: COMMON NORMALS: normocephalic and atraumatic HEAD & SCALP: normocephalic and atraumatic THROAT: posterior oropharynx normal Eye: COMMON NORMALS: conjunctivae normal CONJUNCTIVA: Yes conjunctivae normal SCLERA: sclerae normal Neck/C-Spine: COMMON NORMALS: supple GENERAL: Yes trachea midline Resp: COMMON NORMALS: normal respiratory effort and clear to auscultation bilaterally EFFORT & INSPECTION: Yes able to speak in complete sentences AUSCULTATION: clear to auscultation bilaterally Cardio: COMMON NORMALS: regular rate and regular rhythm RATE: regular rate RHYTHM: regular rhythm GI: COMMON NORMALS: Soft to palpation PALPATION: Yes Soft to palpation and No Tenderness to palpation present (GI) Extremity: GENERAL: Yes normal exam except as noted and No edema Neuro: COMMON NORMALS: moves all extremities SENSORIUM/ORIENTATION: Yes alert and No Orientation impaired Psych: COMMON NORMALS: mental status grossly normal and Normal thought process present THOUGHT PROCESS: Normal thought process present Course Vital Signs: Vital signs: Vital Signs Temperature 98.0 F 01/12/22 19:56 Pulse Rate 65 01/13/22 01:03 Respiratory Rate 16 01/13/22 01:03 Blood Pressure 130/60 01/13/22 01:03 Pulse Oximetry 95 01/13/22 01:03 Oxygen Delivery Me thod 01/12/22 23:18 MDM - Chest Pain Medical Decision Making 41-year-old gentleman with complex history presenting to the emergency room due to chest pain. EKG with nonspecific ST segment abnormalities, no STEMI. No significant laboratory abnormality, D-dimer is negative and delta troponin is negative. Chest x-ray with no lobar consolidation or pneumothorax. Prior cardiology evaluation reviewed based on this in addition to the ED work-up I do not feel that inpatient management is appropriate at this time. Satisfactory for outpatient management. Medical Records I reviewed the patient's medical records. Lab Data I reviewed the patient's lab results. : 01/12/22 21:38 01/12/22 21:38 Radiology Impressions Chest X-Ray 01/12/22 21:23 IMPRESSION: No acute findings. Laboratory Results WBC 9.4 10^3/uL (4.0-10.0) 01/12/22 21:38 RBC 5.07 10^6/uL (4.1-5.3) 01/12/22 21:38 Hgb 15.6 g/dL (11.7-16.6) 01/12/22 21:38 Hct 47.5 % (42.0-52.0) 01/12/22 21:38 MCV 93.7 fl (80-94) 01/12/22 21:38 MCH 30.8 pg (28.0-34.0) 01/12/22 21:38 MCHC 32.8 g/dL (30.0-36.0) 01/12/22 21:38 RDW 13.8 % (12.1-15.1) 01/12/22 21:38 Plt Count 272 10^3/cmm (130-400) 01/12/22 21:38 MPV 9.7 fL (7.4-10.4) 01/12/22 21:38 Neut % (Auto) 50.6 % 01/12/22 21:38 Lymph % (Auto) 32.8 % 01/12/22 21:38 [place] % (Auto) 8.7 % 01/12/22 21:38 Eos % (Auto) 6.5 % 01/12/22 21:38 Baso % (Auto) 1.0 % 01/12/22 21:38 Neut # (Auto) 4.78 10^3/uL (1.8-7.7) 01/12/22 21:38 Lymph # (Auto) 3.1 10^3/uL (0.8-4.8) 01/12/22 21:38 [place] # (Auto) 0.8 10^3/uL (0.2-0.9) 01/12/22 21:38 Eos # (Auto) 0.6 10^3/uL (0.0-0.8) 01/12/22 21:38 Baso # (Auto) 0.1 10^3/uL (0.0-0.1) 01/12/22 21:38 Nucleated RBC % (auto) 0 % 01/12/22 21: Nucleated RBCs # 0.0 /100WBC 01/12/22 21:38 D-Dimer 0.32 ug/mIFEU (0-0.59) 01/12/22 21:30 Sodium 138 mmol/L (136-145) 01/12/22 21:38 Potassium 4.0 mmol/L (3.5-5.1) 01/12/22 21:38 Chloride 102 mmol/L (98-107) 01/12/22 21:38 Carbon Dioxide 23 mmol/L (22-29) 01/12/22 21:38 Anion Gap 17.0 (5-19) 01/12/22 21:38 BUN 13 mg/dL (6-20) 01/12/22 21:38 Creatinine 0.6 mg/dL (0.7-1.2) L 01/12/22 21:38 GFR Calculation 149.2 mL/min (90-130) H 01/12/22 21:38 Glucose 90 mg/dL (65-115) 01/12/22 21:38 Calculated Osmolality 286 mOsm/kg (285-295) 01/12/22 21:38 Calcium 9.5 mg/dL (8.5-10.5) 01/12/22 21:38 Total Bilirubin 0.3 mg/dL (0.15-1.2) 01/12/22 21:38 AST 17 U/L (0-40) 01/12/22 21:38 ALT 23 U/L (0-41) 01/12/22 21:38 Alkaline Phosphatase 149 U/L (40-130) H 01/12/22 21:38 Troponin T Baseline 8 ng/L (0-15) 01/12/22 21:38 Troponin T 120 Minute 11.50 ng/L (0-15) 01/12/22 23:40 Delta Troponin T 3.50 ABS# (0-10) 01/12/22 23:40 NT-Pro-B Natriuret Pep 53 pg/mL (0-125) 01/12/22 21:38 Total Protein 7.3 g/dL (6.6-8.7) 01/12/22 21:38 Albumin 4.5 g/dL (3.5-5.2) 01/12/22 21:38 Globulin 2.8 g/dL (1.3-4.6) 01/12/22 21:38 Lipase 29 U/L (13-60) 01/12/22 21:38 Discharge Plan Discharge Patient Disposition: Home Clinical Impression: Atypical chest pain Condition: Stable Prescriptions: New ondansetron 4 mg tablet,disintegrating 4 mg PO Q8H PRN (Reason: nausea and vomiting) Qty: 15 0RF No Action aspirin 81 mg tablet,delayed release (DR/EC) 81 mg PO DAILY 90 Days Qty: 90 3RF clopidogrel 75 mg tablet 75 mg PO DAILY 90 Days Qty: 90 1RF gabapentin 600 mg tablet 600 mg PO TID 30 Days Qty: 90 2RF duloxetine [Cymbalta] 60 mg capsule,delayed release(DR/EC) 60 mg PO DAILY 90 Days Qty: 90 1RF omeprazole 40 mg capsule,delayed release(DR/EC) 40 mg PO DAILY 90 Days Qty: 90 3RF atorvastatin 80 mg tablet 80 mg PO BEDTIME Qty: 90 1RF pantoprazole [Protonix] 40 mg tablet,delayed release (DR/EC) 40 mg PO BID 42 Days Qty: 84 0RF isosorbide mononitrate 60 mg tablet extended release 24 hr 60 mg PO DAILY Qty: 90 1RF isosorbide mononitrate 30 mg tablet extended release 24 hr 30 mg PO QAM Qty: 90 1RF Rx Instructions: take with 60mg to equal 90mg daily nitroglycerin 0.4 mg tablet, sublingual 0.4 mg sublingual Q5M PRN (Reason: Chest Pain) Qty: 30 6RF Rx Instructions: do not exceed 3 doses per episode Zenpep 40,000-126,000- 168,000 unit capsule,delayed release(DR/EC) 1 cap PO TIDWM Discharge Orders: Discharge ED (Routine); Ordered 01/13/22 Ordered By: Harrison Cruz Referrals: Anna Roach MD [Primary Care Provider] - Discharge Diet: Advance as tolerated and Clear Liquid Discharge Activity: Increase activity as tolerated Patient Instructions: Chest Pain (ED), Pain Management Activity Restrictions/Additional Instructions: Thank you for visiting the emergency department. You were seen evaluated for chest discomfort and associated symptoms. The exact cause of her symptoms is unclear though based on previous evaluation and ED evaluation at this point there is no indication for hospitalization. I recommend continued outpatient follow-up with cardiology and general surgery for consideration of endoscopy. Return to the emergency department for anything that you are concerned about a feel needs emergency department evaluation. Coding Level of Care Code ED Studio Set Up Worker for Lucreciag Fwd Exam Comprehensive
[2022-01-12 21:32] VITALS: BP 114/96; PULSE 75; PULSE 78; RESP 16; O2SAT 94
[2022-01-12 21:41] LABS: Basophils # 0.1 10^3/uL (0.0-0.1); Eosinophils # 0.6 10^3/uL (0.0-0.8); Eosinophils % 6.5 %; Hematocrit 47.5 % (42.0-52.0); Hemoglobin 15.6 g/dL (11.7-16.6); Lymphocytes # 3.1 10^3/uL (0.8-4.8); Lymphocytes % 32.8 %; Mean Corpuscular HGB Conc 32.8 g/dL (30.0-36.0); Mean Corpuscular Hemoglobin 30.8 pg (28.0-34.0); Mean Corpuscular Volume 93.7 fl (80-94); Mean Platelet Volume 9.7 fL (7.4-10.4); Monocytes # 0.8 10^3/uL (0.2-0.9); Monocytes % 8.7 %; Neutrophils # 4.78 10^3/uL (1.8-7.7); Neutrophils % 50.6 %; Nucleated Red Blood Cells % 0 %; Platelet Count 272 10^3/cmm (130-400); Red Blood Count 5.07 10^6/uL (4.1-5.3); Red Cell Distribution Width 13.8 % (12.1-15.1); White Blood Count 9.4 10^3/uL (4.0-10.0)
[2022-01-12] MEDS: aspirin 81 mg Chew Tablet 324 MG PO (21:44)
[2022-01-12] MEDS: nitroglycerin 0.4 mg sublingual Tablet SUBLINGUAL (21:44)
[2022-01-12 22:01] LABS: Troponin(5th) Baseline 8 ng/L (0-15)
[2022-01-12 22:08] LABS: Alanine Aminotransferase 23 U/L (0-41); Albumin Level 4.5 g/dL (3.5-5.2); Alkaline Phosphatase 149 U/L (40-130); Aspartate Amino Transferase 17 U/L (0-40); Blood Urea Nitrogen 13 mg/dL (6-20); Calcium 9.5 mg/dL (8.5-10.5); Carbon Dioxide 23 mmol/L (22-29); Chloride 102 mmol/L (98-107); Globulin 2.8 g/dL (1.3-4.6); Glomerular Filtration Rate 149.2 mL/min (90-130); Glucose 90 mg/dL (65-115); Lipase 29 U/L (13-60); NT Pro B Type Natriuretic Pept 53 pg/mL (0-125); Osmolality Calculated 286 mOsm/kg (285-295); Sodium 138 mmol/L (136-145); Total Bilirubin 0.3 mg/dL (0.15-1.2); Total Protein 7.3 g/dL (6.6-8.7)
[2022-01-12] MEDS: lidocaine 2% viscous 15 ML, aluminum-mag hydrox-simethicon 30 ML, sucralfate oral liq 1 GM PO (22:16)
[2022-01-12 22:19] VITALS: BP 118/65; PULSE 70; RESP 18; O2SAT 94
[2022-01-12 22:36] LABS: D Dimer 0.32 ug/mIFEU (0-0.59)
--- NOTE | 2022-01-12 23:02 | ECG_ITS ---
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 Measurements Intervals [place] Rate: 63 P: 32 [place]: 166 QRS: 56 QRSD: 97 T: 31 QT: 381 QTc: 391 Interpretive Statements SINUS RHYTHM MODERATE T-WAVE ABNORMALITY, CONSIDER ANTERIOR ISCHEMIA [-0.1+ mV T-WAVE IN V3/V4] Compared to ECG 01/12/2022 19:59:46 Possible ischemia now present Sinus arrhythmia no longer present T-wave abnormality still present Electronically Signed On 01-13-2022 16:36:12 CDT by Don Bradley M.D. [email or web address] medical [email or web address]/[id number]
[2022-01-12 23:18] VITALS: BP 126/86; PULSE 62; RESP 16; O2SAT 93
[2022-01-13] MEDS: ondansetron 2 mg/ML SDV 2 mL 4 MG IVP (00:30)
[2022-01-13 01:03] VITALS: BP 130/60; PULSE 65; RESP 16; O2SAT 95
== END 2022-01-13 01:04 | disposition home or self-care (01) ==
PROVIDERS: Emergency Provider Emergency Medicine; PCP Family Medicine
DX: R07.89 Other chest pain (principal); Z79.02 Long term (current) use of antithrombotics/antiplatelets; Z79.82 Long term (current) use of aspirin; I25.10 Atherosclerotic heart disease of native coronary artery without angina pectoris; J44.9 Chronic obstructive pulmonary disease, unspecified; E78.5 Hyperlipidemia, unspecified; I10 Essential (primary) hypertension; F17.210 Nicotine dependence, cigarettes, uncomplicated
CPT/HCPCS: 71045; 80053; 83690; 83880; 84484; 85025; 85378; 93005; 96374; 99285; J2405

== ENCOUNTER 2022-04-15 21:04 | Emergency (ER) | payer MEDICAID, SELFPAY ==
--- NOTE | 2022-04-15 21:05 | XRR_ITS ---
PROCEDURE INFORMATION: Exam: XR Chest Exam date and time: 04/15/2022 9:34 PM Age: 42 years old Clinical indication: Sternal or substernal pain; Additional info: Cp TECHNIQUE: Imaging protocol: Radiologic exam of the chest. Views: 1 view. COMPARISON: CR XR chest 1V portable [id number] 01/12/2022 9:31 PM FINDINGS: Lungs: 3 mm calcified granuloma right mid lung. No consolidative pulmonary infiltrates are noted. Pleural spaces: No pleural effusion. No pneumothorax. Heart/Mediastinum: No cardiomegaly. Diaphragm: Mild elevation of the left hemidiaphragm. Bones/joints: Degenerative spine changes are noted. XR/XR chest 1V portable [id number] IMPRESSION: 1. No acute abnormality demonstrated. 2. There is no interval change from the prior examination.
--- NOTE | 2022-04-15 21:06 | ECG_ITS ---
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 Measurements Intervals [place] Rate: 88 P: 26 VT: 146 QRS: 30 QRSD: 98 T: 55 QT: 314 QTc: 380 Interpretive Statements SINUS RHYTHM MODERATE T-WAVE ABNORMALITY, CONSIDER ANTEROLATERAL ISCHEMIA [-0.1+ mV T-WAVE IN V3-V6] Compared to ECG 01/12/2022 23:02:50 No significant changes Electronically Signed On 04-16-2022 10:06:24 METAL FENCE ERECTOR by Jurgen Maradiaga M.D. [id number]
[2022-04-15 21:07] VITALS: BP 134/91; PULSE 83; RESP 16; TEMP 36.1; O2SAT 99; BMI 27.8
--- NOTE | 2022-04-15 22:38 | W.ED.CHESTPA ---
HPI - Chest Pain General: Chief Complaint: Chest Pain Stated Complaint: CP,N/V Time Seen by Provider: 04/15/22 21:41 Source: patient Mode of arrival: ambulatory Limitations: no limitations History of Present Illness: 42-year-old male states he never chest pain throughout the day. He states is a sharp pain in his lower chest states it is worse with palpation and states his pain is currently a 6 out of 10 denies any shortness of breath denies any vomiting denies any diaphoresis. Associated symptoms: Deny abdominal pain, dyspnea, fever(s), nausea or vomiting Review of Systems Const: Denies: fever(s), chills, body aches or change in appetite Eyes: Denies: blurry vision or eye discomfort ENMT: Denies: throat pain or dental pain Card: Reports: chest pain Resp: Denies: dyspnea GI: Denies: abdominal pain, nausea, vomiting or diarrhea : Denies: dysuria Musc: Denies: neck pain or back pain Skin/Breast: Denies: rash Neuro: Denies: headache(s) Psych: Denies: depression Anjum/Lymph: Denies: easy bruising All/Imm: Denies: urticaria PFSH ED PFSH: Medical History Aorta aneurysm Atherosclerosis of coronary artery COPD (chronic obstructive pulmonary disease) Depression Dyslipidemia Gastroesophageal reflux disease Gross hematuria HTN (hypertension) Presence of stent in LAD coronary artery Urolithiasis Surgical History H/O colonoscopy with polypectomy History of cholecystectomy Hx of heart artery stent S/P ureteral stent placement Status post laser lithotripsy of ureteral calculus Family History Father Heart disease Alcoholic Lung disease Mother Healthy adult Social History Smoking and tobacco status: current every day smoker cigarettes Packs smoked per day: 0.5 Years cigarettes smoked: 20 Alcohol intake: current Alcohol intake frequency: holidays/special occasions only Marital status: Current occupational status: unemployed History of recent travel: No Physical Exam Const: COMMON NORMALS: no acute distress, patient oriented x3 and healthy appearing HENMT: COMMON NORMALS: normocephalic and atraumatic HEAD & SCALP: normocephalic and atraumatic Eye: COMMON NORMALS: Equal, round and reactive pupils present and EOMs intact bilaterally PUPIL: Yes Equal, round and reactive pupils present Neck/C-Spine: COMMON NORMALS: full ROM and supple Chest: COMMONS NORMALS: normal inspection of the chest OTHER: point tender to left chest Resp: COMMON NORMALS: normal respiratory effort, No retractions, No use of accessory muscles and clear to auscultation bilaterally AUSCULTATION: clear to auscultation bilaterally Cardio: COMMON NORMALS: regular rate, regular rhythm and No murmurs present (Cardio) RATE: regular rate RHYTHM: regular rhythm GI: COMMON NORMALS: Normal to inspection, nondistended, normoactive bowel sounds present, Soft to palpation, non-tender and no masses PALPATION: Yes Soft to palpation Extremity: COMMON NORMALS: normal to inspection and full ROM Neuro: COMMON NORMALS: patient oriented x3, moves all extremities and no focal motor deficits Psych: COMMON NORMALS: mental status grossly normal, Normal thought process present and cooperative THOUGHT PROCESS: Normal thought process present Skin: COMMON NORMALS: no rashes or lesions noted and no wounds GENERAL SKIN EXAM: no rashes or lesions noted Course Vital Signs: Vital signs: Vital Signs Temperature 97.0 F L 04/15/22 21:07 Pulse Rate 80 04/16/22 01:06 Respiratory Rate 16 04/16/22 01:06 Blood Pressure 141/88 04/16/22 01:06 Pulse Oximetry 96 04/16/22 01:06 Oxygen Delivery Me thod 04/16/22 01:06 MDM - Chest Pain Medical Decision Making Patient presents for chest pain atypical in nature he is point tender is likely chest wall pain his troponins here are negative he is stable for discharge she is to follow-up with PCP and return if worsening. Lab Data 04/15/22 22:43 04/15/22 22:43 Radiology Impressions Chest X-Ray 04/15/22 21:05 IMPRESSION: 1. No acute abnormality demonstrated. 2. There is no interval change from the prior examination. Laboratory Results WBC 12.8 10^3/uL (4.0-10.0) H 04/15/22 22:43 RBC 5.66 10^6/uL (4.1-5.3) H 04/15/22 22:43 Hgb 16.9 g/dL (11.7-16.6) H 04/15/22 22:43 Hct 52.0 % (42.0-52.0) 04/15/22 22:43 MCV 91.9 fl (80-94) 04/15/22 22:43 MCH 29.9 pg (28.0-34.0) 04/15/22 22:43 MCHC 32.5 g/dL (30.0-36.0) 04/15/22 22:43 RDW 13.9 % (12.1-15.1) 04/15/22 22:43 Plt Count 324 10^3/cmm (130-400) 04/15/22 22:43 MPV 9.3 fL (7.4-10.4) 04/15/22 22:43 Neut % (Auto) 62.4 % 04/15/22 22:43 Lymph % (Auto) 24.5 % 04/15/22 22:43 [place] % (Auto) 7.8 % 04/15/22 22:43 Eos % (Auto) 4.5 % 04/15/22 22:43 Baso % (Auto) 0.6 % 04/15/22 22:43 Neut # (Auto) 7.98 10^3/uL (1.8-7.7) H 04/15/22 22:43 Lymph # (Auto) 3.1 10^3/uL (0.8-4.8) 04/15/22 22:43 [place] # (Auto) 1.0 10^3/uL (0.2-0.9) H 04/15/22 22:43 Eos # (Auto) 0.6 10^3/uL (0.0-0.8) 04/15/22 22:43 Baso # (Auto) 0.1 10^3/uL (0.0-0.1) 04/15/22 22:43 Nucleated RBC % (auto) 0 % 04/15/22:43 Nucleated RBCs # 0.0 /100WBC 04/15/22 22:43 Sodium 138 mmol/L (136-145) 04/15/22 22:43 Potassium 4.1 mmol/L (3.5-5.1) 04/15/22 22:43 Chloride 97 mmol/L (98-107) L 04/15/22 22:43 Carbon Dioxide 26 mmol/L (22-29) 04/15/22 22:43 Anion Gap 19.1 (5-19) H 04/15/22 22:43 BUN 15 mg/dL (6-20) 04/15/22 22:43 Creatinine 0.8 mg/dL (0.7-1.2) 04/15/22 22:43 GFR Calculation 106.5 mL/min (90-130) 04/15/22 22:43 Glucose 95 mg/dL (65-115) 04/15/22 22:43 Calculated Osmolality 287 mOsm/kg (285-295) 04/15/22 22:43 Calcium 10.9 mg/dL (8.5-10.5) H 04/15/22 22:43 Total Bilirubin 0.8 mg/dL (0.15-1.2) 04/15/22 22:43 AST 19 U/L (0-40) 04/15/22 22:43 ALT 26 U/L (0-41) 04/15/22 22:43 Alkaline Phosphatase 142 U/L (40-130) H 04/15/22 22:43 Troponin T Baseline 10 ng/L (0-15) 04/15/22 22:43 Troponin T 120 Minute 10.51 ng/L (0-15) 04/16/22 00:28 Total Protein 8.2 g/dL (6.6-8.7) 04/15/22 22:43 Albumin 5.4 g/dL (3.5-5.2) H 04/15/22 22:43 Globulin 2.8 g/dL (1.3-4.6) 04/15/22 22:43 Lipase 22 U/L (13-60) 04/15/22 22:43 EKG Data EKG 1: I personally reviewed and interpreted this EKG as follows: EKG interpretation date: 04/15/22 EKG interpretation time: 21:14 Interpretation: nsr hr [address] or t wave abnormalities qrs 98 qtc 359 Discharge Plan Discharge Patient Disposition: Home Clinical Impression: Chest pain Condition: Stable Prescriptions: No Action aspirin 81 mg tablet,delayed release (DR/EC) 81 mg PO DAILY 90 Days Qty: 90 3RF clopidogrel 75 mg tablet 75 mg PO DAILY 90 Days Qty: 90 1RF Hold Instructions: Home Medication placed on hold at Doctor's office gabapentin 600 mg tablet 600 mg PO TID 30 Days Qty: 90 2RF duloxetine [Cymbalta] 60 mg capsule,delayed release(DR/EC) 60 mg PO DAILY 90 Days Qty: 90 1RF atorvastatin 80 mg tablet 80 mg PO BEDTIME Qty: 90 1RF Hold Instructions: Home Medication placed on hold at Doctor's office pantoprazole [Protonix] 40 mg tablet,delayed release (DR/EC) 40 mg PO BID 90 Days Qty: 180 1RF losartan 25 mg tablet 25 mg PO DAILY 90 Days Qty: 90 0RF hydralazine 10 mg tablet 10 mg PO TID PRN (Reason: hypertension) Qty: 60 1RF Rx Instructions: BP >160/>100 nitroglycerin 0.4 mg tablet, sublingual 0.4 mg sublingual Q5M PRN (Reason: Chest Pain) Qty: 30 6RF Rx Instructions: do not exceed 3 doses per episode isosorbide mononitrate 60 mg tablet extended release 24 hr 60 mg PO DAILY Qty: 90 1RF isosorbide mononitrate 30 mg tablet extended release 24 hr 30 mg PO QAM Qty: 90 1RF Rx Instructions: take with 60mg to equal 90mg daily ondansetron 4 mg tablet,disintegrating 4 mg PO Q8H PRN (Reason: nausea and vomiting) Qty: 15 0RF Zenpep 40,000-126,000- 168,000 unit capsule,delayed release(DR/EC) 1 cap PO TIDWM Discharge Orders: Discharge ED (Routine); Ordered 04/16/22 Ordered By: Oscar Mejia Referrals: Anna Roach MD [Primary Care Provider] - Discharge Diet: Advance as tolerated Discharge Activity: Resume usual activity Patient Instructions: Chest Pain (ED) Coding Level of Care Code ED Computerized Table Cutter for Clair Fwd Exam Comprehensive
[2022-04-15 22:41] VITALS: RESP 16; O2SAT 95
[2022-04-15] MEDS: aspirin 81 mg Chew Tablet 324 MG PO (22:41)
[2022-04-15] MEDS: morphine 4 mg/mL SDV 1 mL IVP (22:41)
[2022-04-15] MEDS: ondansetron 2 mg/ML SDV 2 mL 4 MG IVP (22:42)
[2022-04-15 22:49] LABS: Basophils # 0.1 10^3/uL (0.0-0.1); Basophils % 0.6 %; Eosinophils # 0.6 10^3/uL (0.0-0.8); Eosinophils % 4.5 %; Hemoglobin 16.9 g/dL (11.7-16.6); Lymphocytes # 3.1 10^3/uL (0.8-4.8); Lymphocytes % 24.5 %; Mean Corpuscular HGB Conc 32.5 g/dL (30.0-36.0); Mean Corpuscular Hemoglobin 29.9 pg (28.0-34.0); Mean Corpuscular Volume 91.9 fl (80-94); Mean Platelet Volume 9.3 fL (7.4-10.4); Monocytes % 7.8 %; Neutrophils # 7.98 10^3/uL (1.8-7.7); Neutrophils % 62.4 %; Nucleated Red Blood Cells % 0 %; Platelet Count 324 10^3/cmm (130-400); Red Blood Count 5.66 10^6/uL (4.1-5.3); Red Cell Distribution Width 13.9 % (12.1-15.1); White Blood Count 12.8 10^3/uL (4.0-10.0)
--- NOTE | 2022-04-15 22:56 | ECG_ITS ---
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 Measurements Intervals [place] Rate: 69 P: 21 [place]: 164 QRS: 31 QRSD: 102 T: 32 QT: 364 QTc: 392 Interpretive Statements SINUS RHYTHM MODERATE T-WAVE ABNORMALITY, CONSIDER ANTEROLATERAL ISCHEMIA [-0.1+ mV T-WAVE IN V3-V6] Compared to ECG 04/15/2022 21:14:33 No significant changes Electronically Signed On 04-16-2022 10:09:47 HEAD LOADER by Jurgen Maradiaga M.D. [id number]
[2022-04-15 23:07] LABS: Troponin(5th) Baseline 10 ng/L (0-15)
[2022-04-15 23:09] LABS: Alanine Aminotransferase 26 U/L (0-41); Albumin Level 5.4 g/dL (3.5-5.2); Alkaline Phosphatase 142 U/L (40-130); Anion Gap 19.1 (5-19); Aspartate Amino Transferase 19 U/L (0-40); Blood Urea Nitrogen 15 mg/dL (6-20); Calcium 10.9 mg/dL (8.5-10.5); Carbon Dioxide 26 mmol/L (22-29); Chloride 97 mmol/L (98-107); Globulin 2.8 g/dL (1.3-4.6); Glomerular Filtration Rate 106.5 mL/min (90-130); Glucose 95 mg/dL (65-115); Lipase 22 U/L (13-60); Osmolality Calculated 287 mOsm/kg (285-295); Potassium 4.1 mmol/L (3.5-5.1); Sodium 138 mmol/L (136-145); Total Bilirubin 0.8 mg/dL (0.15-1.2); Total Protein 8.2 g/dL (6.6-8.7)
[2022-04-15 23:10] VITALS: BP 119/86; PULSE 60; RESP 16; O2SAT 97
[2022-04-16 01:06] VITALS: BP 141/88; PULSE 80; RESP 16; O2SAT 96
[2022-04-16 01:12] LABS: Troponin 5 2HR 10.51 ng/L (0-15)
[2022-04-16 01:29] LABS: Troponin 5 2HR Delta 0.51 ABS# (0-10)
== END 2022-04-16 01:30 | disposition home or self-care (01) ==
PROVIDERS: Emergency Provider Emergency Medicine; PCP Family Medicine
DX: R07.9 Chest pain, unspecified (principal); Z79.82 Long term (current) use of aspirin; Z79.02 Long term (current) use of antithrombotics/antiplatelets; J44.9 Chronic obstructive pulmonary disease, unspecified; I25.10 Atherosclerotic heart disease of native coronary artery without angina pectoris; E78.5 Hyperlipidemia, unspecified; I10 Essential (primary) hypertension; F17.210 Nicotine dependence, cigarettes, uncomplicated
CPT/HCPCS: 71045; 80053; 83690; 84484; 85025; 93005; 96374; 96375; 99285; J2270; J2405

== ENCOUNTER 2022-04-18 18:39 | Emergency (ER) | payer MEDICAID, SELFPAY ==
[2022-04-18 18:41] VITALS: BP 135/84; PULSE 102; RESP 20; TEMP 36.2; O2SAT 98
--- NOTE | 2022-04-18 18:50 | ECG_ITS ---
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 Measurements Intervals [place] Rate: 95 P: 0 [place]: 0 QRS: 66 QRSD: 106 T: 66 QT: 381 QTc: 480 Interpretive Statements SINUS RHYTHM VOLTAGE CRITERIA FOR LVH NONSPECIFIC T-WAVE ABNORMALITY Compared to ECG 04/15/2022 22:56:30 Left ventricular hypertrophy now present Possible ischemia no longer present T-wave abnormality still present Electronically Signed On 04-19-2022 7:37:52 FOOD PROCESSING CHEMIST by Missy Amaya M.D. [id number] f
--- NOTE | 2022-04-18 18:53 | XRR_ITS ---
PROCEDURE INFORMATION: Exam: XR Chest Exam date and time: 04/18/2022 6:59 PM Age: 42 years old Clinical indication: Sternal or substernal pain; Additional info: Chest pain TECHNIQUE: Imaging protocol: Radiologic exam of the chest. Views: 1 view. COMPARISON: CR (CHEST, ) 04/15/2022 9:34 PM FINDINGS: Lungs: Minor left basilar scarring. No consolidation. Pleural spaces: Unremarkable. No pleural effusion. No pneumothorax. Heart/Mediastinum: Unremarkable. No cardiomegaly. Bones/joints: Unremarkable. XR/XR chest 1V portable [id number] IMPRESSION: No acute findings.
--- NOTE | 2022-04-18 19:08 | ED_ITS ---
HPI - Chest Pain General: Chief Complaint: Chest Pain Stated Complaint: cp Time Seen by Provider: 04/18/22 18:55 Source: patient Mode of arrival: ambulatory Limitations: no limitations History of Present Illness: This patient returns to our emergency department because of chest pain. He states the chest pain began approximately 1 hour prior to arrival and woke him from sleep. He states its in the middle of his chest and does not radiate. He states is similar to pain he is experienced before. He has known coronary disease and had a stent placed approximately 1 year ago. He apparently has been having similar chest pains over the past 3 weeks. He states he was seen at [facility] emergency department previously as well as at this facility previously. He denies any cough, fever, recent illness otherwise. He denies any chest trauma, heavy lifting injury etc. He is still a tobacco user. He states he takes his usual medications as prescribed other than the clopidogrel which he says caused him to have a GI bleed and he was told not to take it. 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 past history: coronary artery disease Onset: during rest Pain location: substernal Pain radiation: none Quality: aching Associated symptoms: Deny dyspnea, fever(s), nausea, palpitations, syncope or vomiting Risk Factors: Coronary artery disease risk factors: smoking history Review of Systems Const: Denies: fever(s) or chills Card: Reports: chest pain; Denies: palpitations, lightheadedness, syncope or pre-syncope Resp: Denies: dyspnea, productive cough or non-productive cough GI: Denies: nausea, vomiting or diarrhea : Denies: flank pain, difficulty urinating or dysuria Musc: Denies: back pain, extremity pain or extremity swelling Neuro: Denies: headache(s), numbness in extremities or weakness in extremities PFS ED PFSH: Medical History Aorta aneurysm Atherosclerosis of coronary artery COPD (chronic obstructive pulmonary disease) Depression Dyslipidemia Gastroesophageal reflux disease Gross hematuria HTN (hypertension) Presence of stent in LAD coronary artery Urolithiasis Surgical History H/O colonoscopy with polypectomy History of cholecystectomy Hx of heart artery stent S/P ureteral stent placement Status post laser lithotripsy of ureteral calculus Family History Father Heart disease Alcoholic Lung disease Mother Healthy adult Social History Smoking and tobacco status: current every day smoker cigarettes Packs smoked per day: 0.5 Years cigarettes smoked: 20 Alcohol intake: current Alcohol intake frequency: holidays/special occasions only Marital status: Current occupational status: unemployed History of recent travel: No Physical Exam Narrative: EXAM NARRATIVE: The patient is alert but appears to be somewhat uncomfortable. He answers questions and rather terse 1-2 word sentences. Const: COMMON NORMALS: average body habitus and patient oriented x3 GENERAL APPEARANCE: cooperative ORIENTATION/CONSCIOUSNESS: Yes awake HENMT: COMMON NORMALS: normocephalic, Normal nasal mucous membranes and turbinates present, moist oral mucous membranes and oropharynx normal HEAD & SCALP: normocephalic NOSE: Normal nasal mucous membranes and turbinates present Eye: COMMON NORMALS: Equal, round and reactive pupils present, EOMs intact bilaterally and conjunctivae normal CONJUNCTIVA: Yes conjunctivae normal PUPIL: Yes Equal, round and reactive pupils present Neck/C-Spine: COMMON NORMALS: full ROM, no lymphadenopathy and no JVD Chest: COMMONS NORMALS: normal inspection of the chest OTHER: Tender to palpation in the anterior chest. Some movement of the left arm also reproduces symptoms. No ecchymosis, skin rash, subcutaneous emphysema noted Resp: COMMON NORMALS: normal respiratory effort, No retractions and clear to auscultation bilaterally EFFORT & INSPECTION: Yes able to speak in complete sentences AUSCULTATION: clear to auscultation bilaterally Cardio: COMMON NORMALS: no JVD, regular rate, regular rhythm, No murmurs present (Cardio) and Peripheral pulses 2+ throughout RATE: regular rate RHYTHM: regular rhythm PERIPHERAL PULSES: Peripheral pulses 2+ throughout GI: COMMON NORMALS: Normal to inspection, nondistended, normoactive bowel sounds present, Soft to palpation and non-tender PALPATION: Yes Soft to palpation Back/Pelvis: COMMON NORMALS: thoracic and lumbar spine normal to inspection, no thoracic nor lumbar tenderness, thoraco-lumbar ROM normal and straight leg raise negative bilaterally Extremity: COMMON NORMALS: normal to inspection, full ROM, no calf tenderness and no pedal edema Neuro: COMMON NORMALS: patient oriented x3, moves all extremities, no focal motor deficits, no sensory deficits noted and gait normal SPEECH: speech normal Psych: COMMON NORMALS: mental status grossly normal Skin: COMMON NORMALS: no rashes or lesions noted and no wounds GENERAL SKIN EXAM: no rashes or lesions noted Course Reevaluation(s): Reevaluation #1: Patient's vital signs remained stable. No new or focal findings on repeat examination. Time: 20:35 Vital Signs: Vital signs: Vital Signs Temperature 97.2 F L 04/18/22 18:41 Pulse Rate 54 L 04/18/22 20:15 Respiratory Rate 15 04/18/22 20:15 Blood Pressure 113/75 04/18/22 20:15 Pulse Oximetry 94 04/18/22 20:15 Oxygen Delivery Me thod 04/18/22 20:15 MDM - Chest Pain Medical Decision Making This patient presented to our emergency department a history of chest pain of approximately an hour duration constant prior to arrival to the emergency department. Was substernal in nature not associated with any radiation, s hortness of breath, fever, chills or other symptoms. Patient has a history of coronary disease having had a stent placed in his LAD previously. He has had numerous emergency department visits at this facility for chest pain with negative work-ups ensuing after his presentation. His clinical examination suggested chest wall tenderness to palpation but without any other associated findings. Initial as well as serial EKGs were unremarkable for any acute changes. Serial biomarkers were negative for any troponin elevations and chest x-ray was also reassuring. Certainly ACS seems highly unlikely in this current scenario and is at low risk for thromboembolic events being PERC negative, no evidence of pneumonia etc. at this time. He has reproducible symptoms and also has a longstanding history of similar presentations. I reviewed his current findings and low likelihood of acute disease at this time. We also discussed smoking cessation which he states he is cut down but states also there is a reason for everything indicating or implying that he does not have any reason to to completely quit smoking. At this point no evidence of an ongoing emergency medical condition is suitable to be discharged with outpatient follow-up with return precautions as well. Medical Records I reviewed the patient's medical records. Prior LDL stent placed in April 2021. Lab Data 04/18/22 18:49 04/18/22 18:49 Radiology Impressions Chest X-Ray 04/18/22 18:53 IMPRESSION: No acute findings. Laboratory Results WBC 10.8 10^3/uL (4.0-10.0) H 04/18/22 18:49 RBC 5.45 10^6/uL (4.1-5.3) H 04/18/22 18:49 Hgb 16.8 g/dL (11.7-16.6) H 04/18/22 18:49 Hct 48.9 % (42.0-52.0) 04/18/22 18:49 MCV 89.7 fl (80-94) 04/18/22 18:49 MCH 30.8 pg (28.0-34.0) 04/18/22 18:49 MCHC 34.4 g/dL (30.0-36.0) 04/18/22 18:49 RDW 13.9 % (12.1-15.1) 04/18/22 18:49 Plt Count 334 10^3/cmm (130-400) 04/18/22 18:49 MPV 10.1 fL (7.4-10.4) 04/18/22 18:49 Neut % (Auto) 53.5 % 04/18/22 18:49 Lymph % (Auto) 27.3 % 04/18/22 18:49 [place] % (Auto) 9.1 % 04/18/22 18:49 Eos % (Auto) 8.8 % 04/18/22 18:49 Baso % (Auto) 1.0 % 04/18/22 18:49 Neut # (Auto) 5.75 10^3/uL (1.8-7.7) 04/18/22 18:49 Lymph # (Auto) 2.9 10^3/uL (0.8-4.8) 04/18/22 18:49 [place] # (Auto) 1.0 10^3/uL (0.2-0.9) H 04/18/22 18:49 Eos # (Auto) 1.0 10^3/uL (0.0-0.8) H 04/18/22 18:49 Baso # (Auto) 0.1 10^3/uL (0.0-0.1) 04/18/22 18:49 Nucleated RBC % (auto) 0 % 04/18/22 18:49 Nucleated RBCs # 0.0 /100WBC 04/18/22 18:49 PT 13.30 SECONDS (12.1-14.9) 04/18/22 18:49 INR 0.98 (0.8-1.2) 04/18/22 18:49 APTT 26.3 SECONDS (23.9-36.7) 04/18/22 18:49 Sodium 142 mmol/L (136-145) 04/18/22 18:49 Potassium 4.0 mmol/L (3.5-5.1) 04/18/22 18:49 Chloride 101 mmol/L (98-107) 04/18/22 18:49 Carbon Dioxide 28 mmol/L (22-29) 04/18/22 18:49 Anion Gap 17.0 (5-19) 04/18/22 18:49 BUN 16 mg/dL (6-20) 04/18/22 18:49 Creatinine 0.8 mg/dL (0.7-1.2) 04/18/22 18:49 GFR Calculation 106.5 mL/min (90-130) 04/18/22 18:49 Glucose 99 mg/dL (65-115) 04/18/22 18:49 Calculated Osmolality 295 mOsm/kg (285-295) 04/18/22 18:49 Calcium 10.5 mg/dL (8.5-10.5) 04/18/22 18:49 Total Bilirubin 0.7 mg/dL (0.15-1.2) 04/18/22 18:49 AST 18 U/L (0-40) 04/18/22 18:49 ALT 50 U/L (0-41) H 04/18/22 18:49 Alkaline Phosphatase 144 U/L (40-130) H 04/18/22 18:49 Troponin T Baseline 10 ng/L (0-15) 04/18/22 18:49 Troponin T 120 Minute 9.02 ng/L (0-15) 04/18/22 20:00 Total Protein 8.2 g/dL (6.6-8.7) 04/18/22 18:49 Albumin 4.9 g/dL (3.5-5.2) 04/18/22 18:49 Globulin 3.3 g/dL (1.3-4.6) 04/18/22 18:49 EKG Data EKG 1: I personally reviewed and interpreted this EKG as follows: Interpretation: Contemporaneous review of resting EKG reveals a indeterminate rhythm possible atrial fibrillation with voltage criteria for LVH using precordial leads. No acute ST-T wave changes noted. ST segments appear to be unchanged from prior tracings within the system. Discharge Plan Discharge Patient Disposition: Home Clinical Impression: Chest pain Condition: Stable Prescriptions: No Action aspirin 81 mg tablet,delayed release (DR/EC) 81 mg PO DAILY 90 Days Qty: 90 3RF clopidogrel 75 mg tablet 75 mg PO DAILY 90 Days Qty: 90 1RF Hold Instructions: Home Medication placed on hold at Doctor's office gabapentin 600 mg tablet 600 mg PO TID 30 Days Qty: 90 2RF duloxetine [Cymbalta] 60 mg capsule,delayed release(DR/EC) 60 mg PO DAILY 90 Days Qty: 90 1RF atorvastatin 80 mg tablet 80 mg PO BEDTIME Qty: 90 1RF Hold Instructions: Home Medication placed on hold at Doctor's office pantoprazole [Protonix] 40 mg tablet,delayed release (DR/EC) 40 mg PO BID 90 Days Qty: 180 1RF losartan 25 mg tablet 25 mg PO DAILY 90 Days Qty: 90 0RF hydralazine 10 mg tablet 10 mg PO TID PRN (Reason: hypertension) Qty: 60 1RF Rx Instructions: BP >160/>100 nitroglycerin 0.4 mg tablet, sublingual 0.4 mg sublingual Q5M PRN (Reason: Chest Pain) Qty: 30 6RF Rx Instructions: do not exceed 3 doses per episode isosorbide mononitrate 60 mg tablet extended release 24 hr 60 mg PO DAILY Qty: 90 1RF isosorbide mononitrate 30 mg tablet extended release 24 hr 30 mg PO QAM Qty: 90 1RF Rx Instructions: take with 60mg to equal 90mg daily ondansetron 4 mg tablet,disintegrating 4 mg PO Q8H PRN (Reason: nausea and vomiting) Qty: 15 0RF Zenpep 40,000-126,000- 168,000 unit capsule,delayed release(DR/EC) 1 cap PO TIDWM Discharge Orders: Discharge ED (Routine); Ordered 04/18/22 Ordered By: Andrew Mckeon Referrals: Anna Roach MD [Primary Care Provider] - Discharge Diet: Usual diet Discharge Activity: Increase activity as tolerated Patient Instructions: Opioid Safety, Pain Management Activity Restrictions/Additional Instructions: As we discussed while you are in the emergency department we did not find anything suggest a serious cause of your chest pain this evening. Continue all your usual prescribed medications. Do not smoke cigarettes as that will affect both your esophagus as well as your risk of heart attack. If you develop any new persistent or worsening or other concerning symptoms return to this or the nearest emergency department. Coding Level of Care Code ED Chronic Disease Manager for Clair Mathew Exam Comprehensive
[2022-04-18] MEDS: aspirin 81 mg Chew Tablet 324 MG PO (19:16)
[2022-04-18 19:17] LABS: Basophils # 0.1 10^3/uL (0.0-0.1); Eosinophils % 8.8 %; Hematocrit 48.9 % (42.0-52.0); Hemoglobin 16.8 g/dL (11.7-16.6); Lymphocytes # 2.9 10^3/uL (0.8-4.8); Lymphocytes % 27.3 %; Mean Corpuscular HGB Conc 34.4 g/dL (30.0-36.0); Mean Corpuscular Hemoglobin 30.8 pg (28.0-34.0); Mean Corpuscular Volume 89.7 fl (80-94); Mean Platelet Volume 10.1 fL (7.4-10.4); Monocytes % 9.1 %; Neutrophils # 5.75 10^3/uL (1.8-7.7); Neutrophils % 53.5 %; Nucleated Red Blood Cells % 0 %; Platelet Count 334 10^3/cmm (130-400); Red Blood Count 5.45 10^6/uL (4.1-5.3); Red Cell Distribution Width 13.9 % (12.1-15.1); White Blood Count 10.8 10^3/uL (4.0-10.0)
[2022-04-18 19:37] LABS: INR 0.98 (0.8-1.2)
[2022-04-18 19:38] LABS: Partial Thromboplastin Time 26.3 SECONDS (23.9-36.7)
[2022-04-18 19:40] VITALS: BP 125/70; PULSE 65; RESP 19; O2SAT 95
[2022-04-18 19:45] LABS: Troponin(5th) Baseline 10 ng/L (0-15)
[2022-04-18 19:48] LABS: Alanine Aminotransferase 50 U/L (0-41); Albumin Level 4.9 g/dL (3.5-5.2); Alkaline Phosphatase 144 U/L (40-130); Aspartate Amino Transferase 18 U/L (0-40); Blood Urea Nitrogen 16 mg/dL (6-20); Calcium 10.5 mg/dL (8.5-10.5); Carbon Dioxide 28 mmol/L (22-29); Chloride 101 mmol/L (98-107); Globulin 3.3 g/dL (1.3-4.6); Glomerular Filtration Rate 106.5 mL/min (90-130); Glucose 99 mg/dL (65-115); Osmolality Calculated 295 mOsm/kg (285-295); Sodium 142 mmol/L (136-145); Total Bilirubin 0.7 mg/dL (0.15-1.2); Total Protein 8.2 g/dL (6.6-8.7)
[2022-04-18 19:51] VITALS: RESP 17; O2SAT 95
[2022-04-18] MEDS: morphine 4 mg/mL SDV 1 mL IVP (19:51)
[2022-04-18 20:15] VITALS: BP 113/75; PULSE 54; RESP 15; O2SAT 94
[2022-04-18 20:27] LABS: Troponin 5 2HR 9.02 ng/L (0-15)
[2022-04-18 21:14] VITALS: BP 108/78; PULSE 88; RESP 14
[2022-04-18 21:54] LABS: Troponin 5 2HR Delta -0.98 ABS# (0-10)
== END 2022-04-18 20:43 | disposition home or self-care (01) ==
PROVIDERS: Nurse Practitioner Family; Emergency Provider Emergency Medicine; PCP Family Medicine
DX: R07.9 Chest pain, unspecified (principal); Z79.82 Long term (current) use of aspirin; Z79.02 Long term (current) use of antithrombotics/antiplatelets; I25.10 Atherosclerotic heart disease of native coronary artery without angina pectoris; J44.9 Chronic obstructive pulmonary disease, unspecified; E78.5 Hyperlipidemia, unspecified; I10 Essential (primary) hypertension; F17.210 Nicotine dependence, cigarettes, uncomplicated
CPT/HCPCS: 36415; 71045; 80053; 84484; 85025; 85610; 85730; 93005; 96374; 99285; J2270

== ENCOUNTER 2022-05-18 22:39 | Emergency (ER) | payer MEDICAID, SELFPAY ==
[2022-05-18 22:42] VITALS: BP 121/83; PULSE 86; RESP 20; TEMP 36.5; O2SAT 97; BMI 26.4
--- NOTE | 2022-05-18 22:45 | ECG_ITS ---
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 Measurements Intervals [place] Rate: 86 P: 33 IA: 148 QRS: 51 QRSD: 97 T: 48 QT: 318 QTc: 382 Interpretive Statements SINUS RHYTHM WITH SINUS ARRHYTHMIA NONSPECIFIC T-WAVE ABNORMALITY Compared to ECG 04/18/2022 18:50:39 Left ventricular hypertrophy no longer present T-wave abnormality still present Electronically Signed On 05-19-2022 16:48:34 TORCH SOLDERER by Missy Amaya M.D. [id number] f
--- NOTE | 2022-05-18 22:49 | XRR_ITS ---
PROCEDURE INFORMATION: Exam: XR Chest Exam date and time: 05/18/2022 10:53 PM Age: 42 years old Clinical indication: Pain; Chest pressure; Prior surgery; Additional info: Cp, n/v, today TECHNIQUE: Imaging protocol: Radiologic exam of the chest. Views: 1 view. COMPARISON: CR (CHEST, ) 04/18/2022 6:59 PM FINDINGS: Lungs: Unremarkable. No consolidation. Pleural spaces: Unremarkable. No pleural effusion. No pneumothorax. Heart/Mediastinum: Unremarkable. No cardiomegaly. Diaphragm: Elevation of the left diaphragm. Bones/joints: Unremarkable. XR/XR chest 1V portable [id number] IMPRESSION: No acute findings.
--- NOTE | 2022-05-18 22:51 | ED_ITS ---
HPI - Chest Pain General: Chief Complaint: Chest Pain Stated Complaint: cp,N/V Time Seen by Provider: 05/18/22 22:49 Source: patient Mode of arrival: ambulatory Limitations: no limitations History of Present Illness: 42-year-old male has been seen here multiple times for chest pain he states he started having chest pain is sharp in nature in his left chest 35 minutes ago. States the pain is currently a 7 out of 10 denies any worsening proving factors denies any shortness of breath denies any nausea vomiting. Associated symptoms: Deny abdominal pain, dyspnea, fever(s), nausea or vomiting Review of Systems Const: Denies: fever(s), chills, body aches or change in appetite Eyes: Denies: blurry vision or eye discomfort ENMT: Denies: throat pain or dental pain Card: Reports: chest pain Resp: Denies: dyspnea GI: Denies: abdominal pain, nausea, vomiting or diarrhea : Denies: dysuria Musc: Denies: neck pain or back pain Skin/Breast: Denies: rash Neuro: Denies: headache(s) Psych: Denies: depression Anjum/Lymph: Denies: easy bruising All/Imm: Denies: urticaria PFSH ED PFSH: Medical History Aorta aneurysm Atherosclerosis of coronary artery COPD (chronic obstructive pulmonary disease) Depression Dyslipidemia Gastroesophageal reflux disease Gross hematuria HTN (hypertension) Presence of stent in LAD coronary artery Urolithiasis Surgical History H/O colonoscopy with polypectomy History of cholecystectomy Hx of heart artery stent S/P ureteral stent placement Status post laser lithotripsy of ureteral calculus Family History Father Heart disease Alcoholic Lung disease Mother Healthy adult Social History Smoking and tobacco status: current every day smoker cigarettes Packs smoked per day: 0.5 Years cigarettes smoked: 20 Alcohol intake: current Alcohol intake frequency: holidays/special occasions only Marital status: Current occupational status: unemployed Physical Exam Const: COMMON NORMALS: no acute distress, patient oriented x3 and healthy appearing HENMT: COMMON NORMALS: normocephalic and atraumatic HEAD & SCALP: normocephalic and atraumatic Eye: COMMON NORMALS: Equal, round and reactive pupils present and EOMs intact bilaterally PUPIL: Yes Equal, round and reactive pupils present Neck/C-Spine: COMMON NORMALS: full ROM and supple Chest: COMMONS NORMALS: normal inspection of the chest and normal palpation of entire chest wall Resp: COMMON NORMALS: normal respiratory effort, No retractions, No use of accessory muscles and clear to auscultation bilaterally AUSCULTATION: clear to auscultation bilaterally Cardio: COMMON NORMALS: regular rate, regular rhythm and No murmurs present (Cardio) RATE: regular rate RHYTHM: regular rhythm GI: COMMON NORMALS: Normal to inspection, nondistended, normoactive bowel sounds present, Soft to palpation, non-tender and no masses PALPATION: Yes Soft to palpation Extremity: COMMON NORMALS: normal to inspection and full ROM Neuro: COMMON NORMALS: patient oriented x3, moves all extremities and no focal motor deficits Psych: COMMON NORMALS: mental status grossly normal, Normal thought process present and cooperative THOUGHT PROCESS: Normal thought process present Skin: COMMON NORMALS: no rashes or lesions noted and no wounds GENERAL SKIN EXAM: no rashes or lesions noted Course Vital Signs: Vital signs: Vital Signs Temperature 97.7 F 05/18/22 22:42 Pulse Rate 64 05/19/22 01:01 Respiratory Rate 12 05/19/22 01:01 Blood Pressure 92/71 05/19/22 01:01 Pulse Oximetry 96 05/19/22 01:01 Oxygen Delivery Me thod 05/18/22 22:42 MDM - Chest Pain Medical Decision Making Patient presents for chest pain he does have an elevated lipase probably mild pancreatitis his abdominal exam here is benign white count is normal he does not need a CT scan he is to do a liquid diet we will place him on pain meds he is to follow-up with PCP and return if worsening. Lab Data 05/18/22 22:59 05/18/22 22:59 Radiology Impressions Chest X-Ray 05/18/22 22:49 IMPRESSION: No acute findings. Laboratory Results WBC 9.2 10^3/uL (4.0-10.0) 05/18/22 22:59 RBC 5.07 10^6/uL (4.1-5.3) 05/18/22 22:59 Hgb 15.3 g/dL (11.7-16.6) 05/18/22 22:59 Hct 46.9 % (42.0-52.0) 05/18/22 22:59 MCV 92.5 fl (80-94) 05/18/22 22:59 MCH 30.2 pg (28.0-34.0) 05/18/22 22:59 MCHC 32.6 g/dL (30.0-36.0) 05/18/22 22:59 RDW 13.8 % (12.1-15.1) 05/18/22:59 Plt Count 281 10^3/cmm (130-400) 05/18/22:59 MPV 9.4 fL (7.4-10.4) 05/18/22 22:59 Neut % (Auto) 53.8 % 05/18/22:59 Lymph % (Auto) 31.9 % 05/18/22:59 [place] % (Auto) 10.3 % 05/18/22:59 Eos % (Auto) 3.2 % 05/18/22:59 Baso % (Auto) 0.7 % 05/18/22:59 Neut # (Auto) 4.93 10^3/uL (1.8-7.7) 05/18/22:59 Lymph # (Auto) 2.9 10^3/uL (0.8-4.8) 05/18/22 22:59 [place] # (Auto) 0.9 10^3/uL (0.2-0.9) 05/18/22:59 Eos # (Auto) 0.3 10^3/uL (0.0-0.8) 05/18/22:59 Baso # (Auto) 0.1 10^3/uL (0.0-0.1) 05/18/22:59 Nucleated RBC % (auto) 0 % 05/18/22:59 Nucleated RBCs # 0.0 /100WBC 05/18/22 22:59 Sodium 142 mmol/L (136-145) 05/18/22 22:59 Potassium 3.7 mmol/L (3.5-5.1) 05/18/22:59 Chloride 104 mmol/L (98-107) 05/18/22 22:59 Carbon Dioxide 24 mmol/L (22-29) 05/18/22 22:59 Anion Gap 17.7 (5-19) 05/18/22 22:59 BUN 18 mg/dL (6-20) 05/18/22 22:59 Creatinine 0.7 mg/dL (0.7-1.2) 05/18/22 22:59 GFR Calculation 124.3 mL/min (90-130) 05/18/22 22:59 Glucose 96 mg/dL (65-115) 05/18/22 22:59 Calculated Osmolality 296 mOsm/kg (285-295) H 05/18/22 22:59 Calcium 9.2 mg/dL (8.5-10.5) 05/18/22 22:59 Total Bilirubin 0.2 mg/dL (0.15-1.2) 05/18/22 22:59 AST 21 U/L (0-40) 05/18/22 22:59 ALT 31 U/L (0-41) 05/18/22 22:59 Alkaline Phosphatase 123 U/L (40-130) 05/18/22 22:59 Troponin T Baseline 8 ng/L (0-15) 05/18/22 22:59 Troponin T 120 Minute 8.73 ng/L (0-15) 05/19/22 00:25 Total Protein 6.9 g/dL (6.6-8.7) 05/18/22 22:59 Albumin 4.6 g/dL (3.5-5.2) 05/18/22 22:59 Globulin 2.3 g/dL (1.3-4.6) 05/18/22 22:59 Lipase 239 U/L (13-60) H 05/18/22 22:59 EKG Data EKG 1: I personally reviewed and interpreted this EKG as follows: EKG interpretation date: 05/18/22 EKG interpretation time: 22:45 Interpretation: nsr hr [address] or t wave abnormalities qrs 97 qtc 362 Discharge Plan Discharge Patient Disposition: Home Clinical Impression: Chest pain, Pancreatitis Condition: Stable Prescriptions: New hydrocodone-acetaminophen 5-325 mg tablet 1 tab PO Q6H PRN (Reason: pain) Qty: 14 0RF ondansetron 4 mg tablet,disintegrating 4 mg PO Q6H PRN (Reason: nausea and vomiting) Qty: 14 0RF No Action aspirin 81 mg tablet,delayed release (DR/EC) 81 mg PO DAILY 90 Days Qty: 90 3RF clopidogrel 75 mg tablet 75 mg PO DAILY 90 Days Qty: 90 1RF Hold Instructions: Home Medication placed on hold at Doctor's office gabapentin 600 mg tablet 600 mg PO TID 30 Days Qty: 90 2RF duloxetine [Cymbalta] 60 mg capsule,delayed release(DR/EC) 60 mg PO DAILY 90 Days Qty: 90 1RF atorvastatin 80 mg tablet 80 mg PO BEDTIME Qty: 90 1RF Hold Instructions: Home Medication placed on hold at Doctor's office pantoprazole [Protonix] 40 mg tablet,delayed release (DR/EC) 40 mg PO BID 90 Days Qty: 180 1RF losartan 25 mg tablet 25 mg PO DAILY 90 Days Qty: 90 0RF hydralazine 10 mg tablet 10 mg PO TID PRN (Reason: hypertension) Qty: 60 1RF Rx Instructions: BP >160/>100 nitroglycerin 0.4 mg tablet, sublingual 0.4 mg sublingual Q5M PRN (Reason: Chest Pain) Qty: 30 6RF Rx Instructions: do not exceed 3 doses per episode isosorbide mononitrate 60 mg tablet extended release 24 hr 60 mg PO DAILY Qty: 90 1RF isosorbide mononitrate 30 mg tablet extended release 24 hr 30 mg PO QAM Qty: 90 1RF Rx Instructions: take with 60mg to equal 90mg daily ondansetron 4 mg tablet,disintegrating 4 mg PO Q8H PRN (Reason: nausea and vomiting) Qty: 15 0RF Zenpep 40,000-126,000- 168,000 unit capsule,delayed release(DR/EC) 1 cap PO TIDWM Discharge Orders: Discharge ED (Routine); Ordered 05/19/22 Ordered By: Oscar Mejia Referrals: Anna Roach MD [Primary Care Provider] - 1-3 days Discharge Diet: Advance as tolerated Discharge Activity: Resume usual activity Patient Instructions: Chest Pain (ED), Pancreatitis (ED), Opioid Safety Coding Level of Care Code ED Solderer Dipper for Lucrecia Priyanka
[2022-05-18 23:02] VITALS: BP 120/91; PULSE 72; RESP 18; O2SAT 97
[2022-05-18 23:03] LABS: Basophils # 0.1 10^3/uL (0.0-0.1); Basophils % 0.7 %; Eosinophils # 0.3 10^3/uL (0.0-0.8); Eosinophils % 3.2 %; Hematocrit 46.9 % (42.0-52.0); Hemoglobin 15.3 g/dL (11.7-16.6); Lymphocytes # 2.9 10^3/uL (0.8-4.8); Lymphocytes % 31.9 %; Mean Corpuscular HGB Conc 32.6 g/dL (30.0-36.0); Mean Corpuscular Hemoglobin 30.2 pg (28.0-34.0); Mean Corpuscular Volume 92.5 fl (80-94); Mean Platelet Volume 9.4 fL (7.4-10.4); Monocytes # 0.9 10^3/uL (0.2-0.9); Monocytes % 10.3 %; Neutrophils # 4.93 10^3/uL (1.8-7.7); Neutrophils % 53.8 %; Nucleated Red Blood Cells % 0 %; Platelet Count 281 10^3/cmm (130-400); Red Blood Count 5.07 10^6/uL (4.1-5.3); Red Cell Distribution Width 13.8 % (12.1-15.1); White Blood Count 9.2 10^3/uL (4.0-10.0)
[2022-05-18] MEDS: aspirin 81 mg Chew Tablet 324 MG PO (23:07)
[2022-05-18 23:26] LABS: Alanine Aminotransferase 31 U/L (0-41); Albumin Level 4.6 g/dL (3.5-5.2); Alkaline Phosphatase 123 U/L (40-130); Anion Gap 17.7 (5-19); Aspartate Amino Transferase 21 U/L (0-40); Blood Urea Nitrogen 18 mg/dL (6-20); Calcium 9.2 mg/dL (8.5-10.5); Carbon Dioxide 24 mmol/L (22-29); Chloride 104 mmol/L (98-107); Globulin 2.3 g/dL (1.3-4.6); Glomerular Filtration Rate 124.3 mL/min (90-130); Glucose 96 mg/dL (65-115); Lipase 239 U/L (13-60); Osmolality Calculated 296 mOsm/kg (285-295); Potassium 3.7 mmol/L (3.5-5.1); Sodium 142 mmol/L (136-145); Total Bilirubin 0.2 mg/dL (0.15-1.2); Total Protein 6.9 g/dL (6.6-8.7)
[2022-05-18 23:27] LABS: Troponin(5th) Baseline 8 ng/L (0-15)
[2022-05-18] MEDS: sodium chloride 0.9% 1,000 ML 999 ML IV (23:37)
[2022-05-19] VITALS: BP 105/68; PULSE 74; RESP 12; O2SAT 95
[2022-05-19 00:31] VITALS: BP 108/74; PULSE 69; RESP 16; O2SAT 98
--- NOTE | 2022-05-19 00:49 | ECG_ITS ---
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 Measurements Intervals [place] Rate: 63 P: 33 MA: 168 QRS: 66 QRSD: 101 T: 51 QT: 387 QTc: 398 Interpretive Statements SINUS RHYTHM NONSPECIFIC T-WAVE ABNORMALITY Compared to ECG 05/18/2022 22:45:50 Sinus arrhythmia no longer present T-wave abnormality still present Electronically Signed On 05-19-2022 17:04:46 RESTAURANT AREA MANAGER by Missy Amaya M.D. [email or web address] [email or web address] general [id number]
[2022-05-19 01:01] VITALS: BP 92/71; PULSE 64; RESP 12; O2SAT 96
[2022-05-19 01:05] LABS: Troponin 5 2HR 8.73 ng/L (0-15)
[2022-05-19] MEDS: HYDROcodone-acetaminophen 5-325 mg Tablet 1 TAB PO (01:21)
[2022-05-19 01:28] LABS: Troponin 5 2HR Delta 0.73 ABS# (0-10)
== END 2022-05-19 01:25 | disposition home or self-care (01) ==
PROVIDERS: Emergency Provider Emergency Medicine; PCP Family Medicine
DX: R07.9 Chest pain, unspecified (principal); K85.90 Acute pancreatitis without necrosis or infection, unspecified; Z79.82 Long term (current) use of aspirin; Z79.02 Long term (current) use of antithrombotics/antiplatelets; I25.10 Atherosclerotic heart disease of native coronary artery without angina pectoris; J44.9 Chronic obstructive pulmonary disease, unspecified; E78.5 Hyperlipidemia, unspecified; I10 Essential (primary) hypertension; F17.210 Nicotine dependence, cigarettes, uncomplicated
CPT/HCPCS: 71045; 80053; 83690; 84484; 85025; 93005; 96360; 99285; J7030

== ENCOUNTER 2022-05-19 22:01 | Emergency (ER) | payer MEDICAID, SELFPAY ==
[2022-05-19 22:03] VITALS: BP 154/88; PULSE 94; RESP 16; TEMP 36.5; O2SAT 98
--- NOTE | 2022-05-19 22:03 | ECG_ITS ---
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 Measurements Intervals [place] Rate: 92 P: 49 NE: 166 QRS: 55 QRSD: 98 T: 30 QT: 335 QTc: 416 Interpretive Statements SINUS RHYTHM ST DEVIATION AND MODERATE T-WAVE ABNORMALITY, CONSIDER ANTERIOR ISCHEMIA [-0.1+ mV T-WAVE IN V3/V4] Compared to ECG 05/19/2022 00:43:33 Possible ischemia now present T-wave abnormality still present Electronically Signed On 05-19-2022 23:13:11 WALLPAPER HANGER by Missy Amaya M.D. [id number]
--- NOTE | 2022-05-19 22:03 | XRR_ITS ---
PROCEDURE INFORMATION: Exam: XR Chest Exam date and time: 05/19/2022 10:10 PM Age: 42 years old Clinical indication: Pain; Chest pressure; Prior surgery; Surgery date: 6+ months; Surgery type: Stent; Additional info: Cp TECHNIQUE: Imaging protocol: Radiologic exam of the chest. Views: 1 view. COMPARISON: CR (CHEST, ) 05/18/2022 10:53 PM FINDINGS: Lungs: Unremarkable. No consolidation. Pleural spaces: Unremarkable. No pleural effusion. No pneumothorax. Heart/Mediastinum: Unremarkable. No cardiomegaly. Bones/joints: Unremarkable. XR/XR chest 1V portable [id number] IMPRESSION: No acute findings.
--- NOTE | 2022-05-19 22:08 | W.ED.CHESTPA ---
HPI - Chest Pain General: Chief Complaint: Chest Pain Stated Complaint: chest pain Time Seen by Provider: 05/19/22 22:07 History of Present Illness: 42-year-old male patient comes in today for complaints of chest and abdominal pain that is persisted since last night. Patient reports that he was given medication this morning and discharged home with Raven. Patient had taken medicine and went to bed when he woke up at noon he still had discomfort and pain and had 4 episodes of vomiting. Patient appears nontoxic. Patient appears in mild to moderate pain at this time. Patient has a history of pancreatitis, angina, aortic aneurysm, COPD, coronary artery disease, renal calculi, GERD, and anxiety disorder. Associated symptoms: Reports abdominal pain; Deny dyspnea or fever(s) Review of Systems Const: Reports: chills; Denies: fever(s) ENMT: Denies: throat pain Card: Reports: chest pain Resp: Denies: dyspnea GI: Reports: abdominal pain : Denies: difficulty urinating Skin/Breast: Denies: rash PFSH ED PFSH: Medical History Aorta aneurysm Atherosclerosis of coronary artery COPD (chronic obstructive pulmonary disease) Depression Dyslipidemia Gastroesophageal reflux disease Gross hematuria HTN (hypertension) Presence of stent in LAD coronary artery Urolithiasis Surgical History H/O colonoscopy with polypectomy History of cholecystectomy Hx of heart artery stent S/P ureteral stent placement Status post laser lithotripsy of ureteral calculus Family History Father Heart disease Alcoholic Lung disease Mother Healthy adult Social History Smoking and tobacco status: current every day smoker cigarettes Packs smoked per day: 0.5 Years cigarettes smoked: 20 Alcohol intake: current Alcohol intake frequency: holidays/special occasions only Marital status: Current occupational status: unemployed Physical Exam Const: COMMON NORMALS: alert HENMT: COMMON NORMALS: normocephalic HEAD & SCALP: normocephalic Neck/C-Spine: COMMON NORMALS: full ROM Resp: COMMON NORMALS: normal respiratory effort and clear to auscultation bilaterally AUSCULTATION: clear to auscultation bilaterally Cardio: COMMON NORMALS: regular rate and regular rhythm RATE: regular rate RHYTHM: regular rhythm GI: COMMON NORMALS: Soft to palpation PALPATION: Yes Soft to palpation, Yes Tenderness to palpation present (GI) (Epigastric) and No Guarding due to palpation present (GI) Extremity: COMMON NORMALS: no pedal edema Neuro: SENSORIUM/ORIENTATION: Yes alert Skin: COMMON NORMALS: no rashes or lesions noted and turgor normal GENERAL SKIN EXAM: no rashes or lesions noted and turgor normal Course Vital Signs: Vital signs: Vital Signs Temperature 97.7 F 05/19/22 22:03 Pulse Rate 94 05/19/22 22:03 Respiratory Rate 16 05/19/22 22:03 Blood Pressure 154/88 05/19/22 22:03 Pulse Oximetry 98 05/19/22 22:03 Oxygen Delivery Me thod 05/19/22 22:03 MDM - Chest Pain Medical Decision Making 42-year-old male patient comes in today for increased pain in the epigastrium and chest. Patient was diagnosed with pancreatitis yesterday and felt that it may be getting worse. Patient was not able to get prescriptions for pain yesterday. Patient appears nontoxic. Patient appears in mild to moderate pain. Vital signs are normal. Differential diagnosis includes pancreatitis, ACS, malingering. Troponin was normal, EKG was unremarkable. CBC and CMP were improved from yesterday. Lipase had dropped from 260 to 23 today. Patient was treated with 1 L of IV fluids, 2 mg of Haldol, and 50 mcg of fentanyl. Patient had improvement in symptoms. Recommend patient continue with Raven and Zofran at home as needed and clear liquid diet until pain resolves. Patient reported understanding and agreed to plan. Lab Data 05/19/22 22:20 05/19/22 22:20 Radiology Impressions Chest X-Ray 05/19/22 22:03 IMPRESSION: No acute findings. Laboratory Results WBC 7.9 10^3/uL (4.0-10.0) 05/19/22 22:20 RBC 4.92 10^6/uL (4.1-5.3) 05/19/22 22:20 Hgb 15.4 g/dL (11.7-16.6) 05/19/22 22: Hct 46.0 % (42.0-52.0) 05/19/22 22:20 MCV 93.5 fl (80-94) 05/19/22 22:20 MCH 31.3 pg (28.0-34.0) 05/19/22 22:20 MCHC 33.5 g/dL (30.0-36.0) 05/19/22 22:20 RDW 13.6 % (12.1-15.1) 05/19/22 22:20 Plt Count 272 10^3/cmm (130-400) 05/19/22 22:20 MPV 9.8 fL (7.4-10.4) 05/19/22 22:20 Neut % (Auto) 54.3 % 05/19/22 22:20 Lymph % (Auto) 30.4 % 05/19/22 22:20 [place] % (Auto) 10.7 % 05/19/22 22:20 Eos % (Auto) 3.4 % 05/19/22 22:20 Baso % (Auto) 0.9 % 05/19/22 22:20 Neut # (Auto) 4.27 10^3/uL (1.8-7.7) 05/19/22 22:20 Lymph # (Auto) 2.4 10^3/uL (0.8-4.8) 05/19/22 22:20 [place] # (Auto) 0.8 10^3/uL (0.2-0.9) 05/19/22 22:20 Eos # (Auto) 0.3 10^3/uL (0.0-0.8) 05/19/22 22:20 Baso # (Auto) 0.1 10^3/uL (0.0-0.1) 05/19/22 22:20 Nucleated RBC % (auto) 0 % 05/19/22 22:20 Nucleated RBCs # 0.0 /100WBC 05/19/22 22:20 Sodium 137 mmol/L (136-145) 05/19/22 22:20 Potassium 3.6 mmol/L (3.5-5.1) 05/19/22 22:20 Chloride 101 mmol/L (98-107) 05/19/22 22:20 Carbon Dioxide 24 mmol/L (22-29) 05/19/22 22:20 Anion Gap 15.6 (5-19) 05/19/22 22:20 BUN 14 mg/dL (6-20) 05/19/22 22:20 Creatinine 0.6 mg/dL (0.7-1.2) L 05/19/22 22:20 GFR Calculation 148.5 mL/min (90-130) H 05/19/22 22:20 Glucose 106 mg/dL (65-115) 05/19/22 22:20 Calculated Osmolality 285 mOsm/kg (285-295) 05/19/22 22:20 Calcium 9.4 mg/dL (8.5-10.5) 05/19/22 22:20 Total Bilirubin 0.2 mg/dL (0.15-1.2) 05/19/22 22:20 AST 19 U/L (0-40) 05/19/22 22:20 ALT 29 U/L (0-41) 05/19/22 22:20 Alkaline Phosphatase 127 U/L (40-130) 05/19/22 22:20 Troponin T Baseline 8 ng/L (0-15) 05/19/22 22:20 Total Protein 6.4 g/dL (6.6-8.7) L 05/19/22 22:20 Albumin 4.4 g/dL (3.5-5.2) 05/19/22 22:20 Globulin 2.0 g/dL (1.3-4.6) 05/19/22 22:20 Lipase 24 U/L (13-60) 05/19/22 22:20 Discharge Plan Discharge Patient Disposition: Home Clinical Impression: Epigastric pain Chest pain Qualifiers: Chest pain type: unspecified Qualified Code(s): R07.9 - Chest pain, unspecified Condition: Stable Prescriptions: No Action aspirin 81 mg tablet,delayed release (DR/EC) 81 mg PO DAILY 90 Days Qty: 90 3RF clopidogrel 75 mg tablet 75 mg PO DAILY 90 Days Qty: 90 1RF Hold Instructions: Home Medication placed on hold at Doctor's office gabapentin 600 mg tablet 600 mg PO TID 30 Days Qty: 90 2RF duloxetine [Cymbalta] 60 mg capsule,delayed release(DR/EC) 60 mg PO DAILY 90 Days Qty: 90 1RF atorvastatin 80 mg tablet 80 mg PO BEDTIME Qty: 90 1RF Hold Instructions: Home Medication placed on hold at Doctor's office pantoprazole [Protonix] 40 mg tablet,delayed release (DR/EC) 40 mg PO BID 90 Days Qty: 180 1RF losartan 25 mg tablet 25 mg PO DAILY 90 Days Qty: 90 0RF hydralazine 10 mg tablet 10 mg PO TID PRN (Reason: hypertension) Qty: 60 1RF Rx Instructions: BP >160/>100 nitroglycerin 0.4 mg tablet, sublingual 0.4 mg sublingual Q5M PRN (Reason: Chest Pain) Qty: 30 6RF Rx Instructions: do not exceed 3 doses per episode isosorbide mononitrate 60 mg tablet extended release 24 hr 60 mg PO DAILY Qty: 90 1RF isosorbide mononitrate 30 mg tablet extended release 24 hr 30 mg PO QAM Qty: 90 1RF Rx Instructions: take with 60mg to equal 90mg daily ondansetron 4 mg tablet,disintegrating 4 mg PO Q8H PRN (Reason: nausea and vomiting) Qty: 15 0RF Zenpep 40,000-126,000- 168,000 unit capsule,delayed release(DR/EC) 1 cap PO TIDWM hydrocodone-acetaminophen 5-325 mg tablet 1 tab PO Q6H PRN (Reason: pain) Qty: 14 0RF ondansetron 4 mg tablet,disintegrating 4 mg PO Q6H PRN (Reason: nausea and vomiting) Qty: 14 0RF Discharge Orders: Discharge ED (Routine); Ordered 05/19/22 Ordered By: Randell Longoria Referrals: Anna Roach MD [Primary Care Provider] - Discharge Diet: Advance as tolerated Discharge Activity: Increase activity as tolerated Patient Instructions: Abdominal Pain (ED) Activity Restrictions/Additional Instructions: Continue clear liquid diet until abdominal pain resolves. Drink plenty of fluids. Use medications as prescribed. Follow-up with primary care in 2 to 3 days for recheck. Return to ED for new concerns. Coding Level of Care Code ED Trout Farmer for Clair Mathew
[2022-05-19 22:36] LABS: Basophils # 0.1 10^3/uL (0.0-0.1); Basophils % 0.9 %; Eosinophils # 0.3 10^3/uL (0.0-0.8); Eosinophils % 3.4 %; Hemoglobin 15.4 g/dL (11.7-16.6); Lymphocytes # 2.4 10^3/uL (0.8-4.8); Lymphocytes % 30.4 %; Mean Corpuscular HGB Conc 33.5 g/dL (30.0-36.0); Mean Corpuscular Hemoglobin 31.3 pg (28.0-34.0); Mean Corpuscular Volume 93.5 fl (80-94); Mean Platelet Volume 9.8 fL (7.4-10.4); Monocytes # 0.8 10^3/uL (0.2-0.9); Monocytes % 10.7 %; Neutrophils # 4.27 10^3/uL (1.8-7.7); Neutrophils % 54.3 %; Nucleated Red Blood Cells % 0 %; Platelet Count 272 10^3/cmm (130-400); Red Blood Count 4.92 10^6/uL (4.1-5.3); Red Cell Distribution Width 13.6 % (12.1-15.1); White Blood Count 7.9 10^3/uL (4.0-10.0)
[2022-05-19 22:56] LABS: Alanine Aminotransferase 29 U/L (0-41); Albumin Level 4.4 g/dL (3.5-5.2); Alkaline Phosphatase 127 U/L (40-130); Anion Gap 15.6 (5-19); Aspartate Amino Transferase 19 U/L (0-40); Blood Urea Nitrogen 14 mg/dL (6-20); Calcium 9.4 mg/dL (8.5-10.5); Carbon Dioxide 24 mmol/L (22-29); Chloride 101 mmol/L (98-107); Glomerular Filtration Rate 148.5 mL/min (90-130); Glucose 106 mg/dL (65-115); Lipase 24 U/L (13-60); Osmolality Calculated 285 mOsm/kg (285-295); Potassium 3.6 mmol/L (3.5-5.1); Sodium 137 mmol/L (136-145); Total Bilirubin 0.2 mg/dL (0.15-1.2); Total Protein 6.4 g/dL (6.6-8.7)
[2022-05-19] MEDS: sodium chloride 0.9% 1,000 ML 999 ML IV (22:56)
[2022-05-19 22:58] LABS: Troponin(5th) Baseline 8 ng/L (0-15)
[2022-05-19] MEDS: fentaNYL 50 mcg/mL INJ 2mL IVP (22:58)
[2022-05-19] MEDS: haloperidol inj 5 mg/mL INJ 1 mL 2 MG IVP (22:58)
== END 2022-05-20 00:02 | disposition home or self-care (01) ==
PROVIDERS: Emergency Medicine; Emergency Provider Nurse Practitioner Family; PCP Family Medicine
DX: R10.13 Epigastric pain (principal); R07.9 Chest pain, unspecified; Z79.82 Long term (current) use of aspirin; Z79.02 Long term (current) use of antithrombotics/antiplatelets; I25.10 Atherosclerotic heart disease of native coronary artery without angina pectoris; J44.9 Chronic obstructive pulmonary disease, unspecified; E78.5 Hyperlipidemia, unspecified; I10 Essential (primary) hypertension; F17.210 Nicotine dependence, cigarettes, uncomplicated
CPT/HCPCS: 71045; 80053; 83690; 84484; 85025; 93005; 96361; 96374; 96375; 99285; J1630; J3010; J7030

== ENCOUNTER 2022-05-29 21:23 | Emergency (ER) | payer MEDICAID, SELFPAY ==
--- NOTE | 2022-05-29 21:24 | XRR_ITS ---
PROCEDURE INFORMATION: Exam: XR Chest Exam date and time: 05/29/2022 9:33 PM Age: 42 years old Clinical indication: Chest wall pain; Prior surgery; Surgery date: 6+ months; Surgery type: Stent placement 04/23; Additional info: Cp TECHNIQUE: Imaging protocol: Radiologic exam of the chest. Views: 1 view. COMPARISON: CR (CHEST, ) 05/19/2022 10:10 PM FINDINGS: Lungs: Bibasilar right greater than left atelectasis versus infiltrate. Pleural spaces: Unremarkable. No pleural effusion. No pneumothorax. Heart/Mediastinum: Unremarkable. No cardiomegaly. Bones/joints: Unremarkable. XR/XR chest 1V portable [id number] IMPRESSION: Bibasilar right greater than left atelectasis versus infiltrate.
[2022-05-29 21:30] VITALS: BP 128/84; PULSE 84; RESP 16; O2SAT 95; BMI 27.1
--- NOTE | 2022-05-29 21:37 | ECG_ITS ---
[facility] Test Date: 2022-05-29 Pat Name: Jovanny Rico Department: Room: Gender: Male Manager Client Service: : 1980 Requested By: Oscar Mejia Order Number: [id number] Jody MD: Spenser Carrillo M.D. Measurements Intervals [place] Rate: 76 P: 25 HI: 157 QRS: 54 QRSD: 89 T: 47 QT: 336 QTc: 380 Interpretive Statements SINUS RHYTHM NONSPECIFIC T-WAVE ABNORMALITY Compared to ECG 05/19/2022 22:12:30 Possible ischemia no longer present T-wave abnormality still present Electronically Signed On 05-29-2022 23:41:43 ACOUSTIC INTELLIGENCE SPECIALIST by Spenser Carrillo M.D. [id number]
[2022-05-29 21:46] LABS: Basophils # 0.1 10^3/uL (0.0-0.1); Basophils % 0.6 %; Eosinophils # 0.3 10^3/uL (0.0-0.8); Eosinophils % 2.5 %; Hematocrit 43.1 % (42.0-52.0); Hemoglobin 14.1 g/dL (11.7-16.6); Lymphocytes # 2.8 10^3/uL (0.8-4.8); Lymphocytes % 20.1 %; Mean Corpuscular HGB Conc 32.7 g/dL (30.0-36.0); Mean Corpuscular Hemoglobin 30.5 pg (28.0-34.0); Mean Corpuscular Volume 93.3 fl (80-94); Mean Platelet Volume 9.5 fL (7.4-10.4); Monocytes # 1.2 10^3/uL (0.2-0.9); Monocytes % 9.1 %; Neutrophils # 9.24 10^3/uL (1.8-7.7); Neutrophils % 67.4 %; Nucleated Red Blood Cells % 0 %; Platelet Count 291 10^3/cmm (130-400); Red Blood Count 4.62 10^6/uL (4.1-5.3); White Blood Count 13.7 10^3/uL (4.0-10.0)
[2022-05-29] MEDS: aspirin 81 mg Chew Tablet 324 MG PO (21:51)
[2022-05-29] MEDS: nitroglycerin 0.4 mg sublingual Tablet SUBLINGUAL (21:52)
[2022-05-29 21:57] LABS: INR 0.98 (0.8-1.2)
--- NOTE | 2022-05-29 21:57 | W.ED.CHESTPA ---
HPI - Chest Pain General: Chief Complaint: Chest Pain Stated Complaint: CP Time Seen by Provider: 05/29/22 21:28 Source: patient Mode of arrival: ambulatory Limitations: no limitations History of Present Illness: 42-year-old male has been seen here multiple times in the past for chest pain that he states started having pain again 1 hour ago he states that sharp pain in the center of his chest he denies any vomiting or diarrhea denies any shortness of breath he denies any worsening improving factors patient is resting comfortably at this time. Associated symptoms: Deny abdominal pain, dyspnea, fever(s), nausea or vomiting Review of Systems Const: Denies: fever(s), chills, body aches or change in appetite Eyes: Denies: blurry vision or eye discomfort ENMT: Denies: throat pain or dental pain Card: Reports: chest pain Resp: Denies: dyspnea GI: Denies: abdominal pain, nausea, vomiting or diarrhea : Denies: dysuria Musc: Denies: neck pain or back pain Skin/Breast: Denies: rash Neuro: Denies: headache(s) Psych: Denies: depression Anjum/Lymph: Denies: easy bruising All/Imm: Denies: urticaria PFSH ED PFSH: Medical History Aorta aneurysm Atherosclerosis of coronary artery COPD (chronic obstructive pulmonary disease) Depression Dyslipidemia Gastroesophageal reflux disease Gross hematuria HTN (hypertension) Presence of stent in LAD coronary artery Urolithiasis Surgical History H/O colonoscopy with polypectomy History of cholecystectomy Hx of heart artery stent S/P ureteral stent placement Status post laser lithotripsy of ureteral calculus Family History Father Heart disease Alcoholic Lung disease Mother Healthy adult Social History Smoking and tobacco status: current every day smoker cigarettes Packs smoked per day: 0.5 Years cigarettes smoked: 20 Alcohol intake: current Alcohol intake frequency: holidays/special occasions only Marital status: Current occupational status: unemployed Physical Exam Const: COMMON NORMALS: no acute distress, patient oriented x3 and healthy appearing HENMT: COMMON NORMALS: normocephalic and atraumatic HEAD & SCALP: normocephalic and atraumatic Eye: COMMON NORMALS: Equal, round and reactive pupils present and EOMs intact bilaterally PUPIL: Yes Equal, round and reactive pupils present Neck/C-Spine: COMMON NORMALS: full ROM and supple Chest: COMMONS NORMALS: normal inspection of the chest and normal palpation of entire chest wall Resp: COMMON NORMALS: normal respiratory effort, No retractions, No use of accessory muscles and clear to auscultation bilaterally AUSCULTATION: clear to auscultation bilaterally Cardio: COMMON NORMALS: regular rate, regular rhythm and No murmurs present (Cardio) RATE: regular rate RHYTHM: regular rhythm GI: COMMON NORMALS: Normal to inspection, nondistended, normoactive bowel sounds present, Soft to palpation, non-tender and no masses PALPATION: Yes Soft to palpation Extremity: COMMON NORMALS: normal to inspection and full ROM Neuro: COMMON NORMALS: patient oriented x3, moves all extremities and no focal motor deficits Psych: COMMON NORMALS: mental status grossly normal, Normal thought process present and cooperative THOUGHT PROCESS: Normal thought process present Skin: COMMON NORMALS: no rashes or lesions noted and no wounds GENERAL SKIN EXAM: no rashes or lesions noted Course Vital Signs: Vital signs: Vital Signs Pulse Rate 74 05/29/22 23:03 Respiratory Rate 16 05/29/22 23:03 Blood Pressure 128/84 05/29/22 21:30 Pulse Oximetry 96 05/29/22 23:03 Oxygen Delivery Me thod 05/29/22 23:03 MDM - Chest Pain Medical Decision Making Patient presents for chest pains atypical in nature his troponin here is normal he does have a slight pneumonia could be causing his chest pain we will start him on doxycycline he has no signs of PE his pulse ox here is normal he is stable for discharge he is to follow-up PCP and return if worsening. He understands agrees to plan. Lab Data 05/29/22 21:40 05/29/22 21:40 Radiology Impressions Chest X-Ray 05/29/22 21:24 IMPRESSION: Bibasilar right greater than left atelectasis versus infiltrate. Laboratory Results WBC 13.7 10^3/uL (4.0-10.0) H 05/29/22 21:40 RBC 4.62 10^6/uL (4.1-5.3) 05/29/22 21:40 Hgb 14.1 g/dL (11.7-16.6) 05/29/22 21:40 Hct 43.1 % (42.0-52.0) 05/29/22 21:40 MCV 93.3 fl (80-94) 05/29/22 21:40 MCH 30.5 pg (28.0-34.0) 05/29/22 21:40 MCHC 32.7 g/dL (30.0-36.0) 05/29/22 21:40 RDW 14.0 % (12.1-15.1) 05/29/22 21:40 Plt Count 291 10^3/cmm (130-400) 05/29/22 21:40 MPV 9.5 fL (7.4-10.4) 05/29/22 21:40 Neut % (Auto) 67.4 % 05/29/22 21:40 Lymph % (Auto) 20.1 % 05/29/22 21:40 [place] % (Auto) 9.1 % 05/29/22 21:40 Eos % (Auto) 2.5 % 05/29/22 21:40 Baso % (Auto) 0.6 % 05/29/22 21:40 Neut # (Auto) 9.24 10^3/uL (1.8-7.7) H 05/29/22 21:40 Lymph # (Auto) 2.8 10^3/uL (0.8-4.8) 05/29/22 21:40 [place] # (Auto) 1.2 10^3/uL (0.2-0.9) H 05/29/22 21:40 Eos # (Auto) 0.3 10^3/uL (0.0-0.8) 05/29/22 21:40 Baso # (Auto) 0.1 10^3/uL (0.0-0.1) 05/29/22 21:40 Nucleated RBC % (auto) 0 % 05/29/22 21:40 Nucleated RBCs # 0.0 /100WBC 05/29/22 21:40 PT 13.20 SECONDS (12.1-14.9) 05/29/22 21:40 INR 0.98 (0.8-1.2) 05/29/22 21:40 Sodium 139 mmol/L (136-145) 05/29/22 21:40 Potassium 4.2 mmol/L (3.5-5.1) 05/29/22 21:40 Chloride 102 mmol/L (98-107) 05/29/22 21:40 Carbon Dioxide 25 mmol/L (22-29) 05/29/22 21:40 Anion Gap 16.2 (5-19) 05/29/22 21:40 BUN 15 mg/dL (6-20) 05/29/22 21:40 Creatinine 0.9 mg/dL (0.7-1.2) 05/29/22 21:40 GFR Calculation 93.0 mL/min (90-130) 05/29/22 21:40 Glucose 77 mg/dL (65-115) 05/29/22 21:40 Calculated Osmolality 288 mOsm/kg (285-295) 05/29/22 21:40 Calcium 9.6 mg/dL (8.5-10.5) 05/29/22 21:40 Total Bilirubin 0.3 mg/dL (0.15-1.2) 05/29/22 21:40 AST 20 U/L (0-40) 05/29/22 21:40 ALT 25 U/L (0-41) 05/29/22 21:40 Alkaline Phosphatase 129 U/L (40-130) 05/29/22 21:40 Troponin T Baseline 11 ng/L (0-15) 05/29/22 21:40 Total Protein 7.1 g/dL (6.6-8.7) 05/29/22 21:40 Albumin 4.4 g/dL (3.5-5.2) 05/29/22 21:40 Globulin 2.7 g/dL (1.3-4.6) 05/29/22 21:40 EKG Data EKG 1: I personally reviewed and interpreted this EKG as follows: EKG interpretation date: 05/29/22 EKG interpretation time: 21:37 Interpretation: nsr hr [address] or t wave abnormalities qrs 89 qtc 367 Discharge Plan Discharge Patient Disposition: Home Clinical Impression: Chest pain, Pneumonia Condition: Stable Prescriptions: New doxycycline hyclate 100 mg tablet 100 mg PO BID 7 Days Qty: 14 0RF Naprosyn 500 mg tablet 500 mg PO BID PRN (Reason: pain) Qty: 20 0RF No Action aspirin 81 mg tablet,delayed release (DR/EC) 81 mg PO DAILY 90 Days Qty: 90 3RF clopidogrel 75 mg tablet 75 mg PO DAILY 90 Days Qty: 90 1RF Hold Instructions: Home Medication placed on hold at Doctor's office gabapentin 600 mg tablet 600 mg PO TID 30 Days Qty: 90 2RF duloxetine [Cymbalta] 60 mg capsule,delayed release(DR/EC) 60 mg PO DAILY 90 Days Qty: 90 1RF atorvastatin 80 mg tablet 80 mg PO BEDTIME Qty: 90 1RF Hold Instructions: Home Medication placed on hold at Doctor's office pantoprazole [Protonix] 40 mg tablet,delayed release (DR/EC) 40 mg PO BID 90 Days Qty: 180 1RF losartan 25 mg tablet 25 mg PO DAILY 90 Days Qty: 90 0RF hydralazine 10 mg tablet 10 mg PO TID PRN (Reason: hypertension) Qty: 60 1RF Rx Instructions: BP >160/>100 nitroglycerin 0.4 mg tablet, sublingual 0.4 mg sublingual Q5M PRN (Reason: Chest Pain) Qty: 30 6RF Rx Instructions: do not exceed 3 doses per episode isosorbide mononitrate 60 mg tablet extended release 24 hr 60 mg PO DAILY Qty: 90 1RF isosorbide mononitrate 30 mg tablet extended release 24 hr 30 mg PO QAM Qty: 90 1RF Rx Instructions: take with 60mg to equal 90mg daily ondansetron 4 mg tablet,disintegrating 4 mg PO Q8H PRN (Reason: nausea and vomiting) Qty: 15 0RF Zenpep 40,000-126,000- 168,000 unit capsule,delayed release(DR/EC) 1 cap PO TIDWM hydrocodone-acetaminophen 5-325 mg tablet 1 tab PO Q6H PRN (Reason: pain) Qty: 14 0RF ondansetron 4 mg tablet,disintegrating 4 mg PO Q6H PRN (Reason: nausea and vomiting) Qty: 14 0RF Discharge Orders: Discharge ED (Routine); Ordered 05/29/22 Ordered By: Oscar Mejia Referrals: Anna Roach MD [Primary Care Provider] - 1-3 days Discharge Diet: Advance as tolerated Discharge Activity: Resume usual activity Patient Instructions: Chest Pain (ED), Pneumonia (ED) Coding Level of Care Code ED Manager Enrollment for Clair Mathew
[2022-05-29 22:03] VITALS: BP 117/57; PULSE 76; RESP 16; O2SAT 93
[2022-05-29 22:05] LABS: Alanine Aminotransferase 25 U/L (0-41); Albumin Level 4.4 g/dL (3.5-5.2); Alkaline Phosphatase 129 U/L (40-130); Anion Gap 16.2 (5-19); Aspartate Amino Transferase 20 U/L (0-40); Blood Urea Nitrogen 15 mg/dL (6-20); Calcium 9.6 mg/dL (8.5-10.5); Carbon Dioxide 25 mmol/L (22-29); Chloride 102 mmol/L (98-107); Creatinine Clr Calc Pharmacy 126.5721; Globulin 2.7 g/dL (1.3-4.6); Glucose 77 mg/dL (65-115); Osmolality Calculated 288 mOsm/kg (285-295); Potassium 4.2 mmol/L (3.5-5.1); Sodium 139 mmol/L (136-145); Total Bilirubin 0.3 mg/dL (0.15-1.2); Total Protein 7.1 g/dL (6.6-8.7)
[2022-05-29 22:08] LABS: Troponin(5th) Baseline 11 ng/L (0-15)
[2022-05-29 22:33] VITALS: BP 102/69; PULSE 74; RESP 18; O2SAT 94
[2022-05-29] MEDS: doxycycline 100 mg Tablet PO (22:49)
[2022-05-29] MEDS: albuterol 8 gm MDI 2 PUFF INHALATION (23:01)
[2022-05-29 23:03] VITALS: BP 106/83; PULSE 74; PULSE 77; RESP 16; RESP 20; O2SAT 94; O2SAT 96
== END 2022-05-29 23:22 | disposition home or self-care (01) ==
PROVIDERS: Emergency Provider Emergency Medicine; PCP Family Medicine
DX: J18.9 Pneumonia, unspecified organism (principal); R07.9 Chest pain, unspecified; F17.210 Nicotine dependence, cigarettes, uncomplicated; I10 Essential (primary) hypertension
CPT/HCPCS: 36415; 71045; 80053; 84484; 85025; 85610; 93005; 94640; 99285; J3535

== ENCOUNTER 2022-06-04 19:03 | Emergency (ER) | payer MEDICAID, SELFPAY ==
--- NOTE | 2022-06-04 19:06 | XRR_ITS ---
PROCEDURE INFORMATION: Exam: XR Chest Exam date and time: 06/04/2022 7:17 PM Age: 42 years old Clinical indication: Pain; Chest pressure; Prior surgery; Surgery type: Stents; Additional info: Cp TECHNIQUE: Imaging protocol: Radiologic exam of the chest. Views: 1 view. COMPARISON: CR (CHEST, ) 05/29/2022 9:33 PM FINDINGS: Lungs: Unremarkable. No consolidation. Resolved lung base atelectasis or airspace disease. Pleural spaces: Unremarkable. No pleural effusion. No pneumothorax. Heart/Mediastinum: Small hiatal hernia. Diaphragm: Mild left hemidiaphragm elevation. Bones/joints: Unremarkable. XR/XR chest 1V portable [id number] IMPRESSION: No acute findings.
--- NOTE | 2022-06-04 19:06 | ECG_ITS ---
[facility] Test Date: 2022-06-04 Pat Name: Jovanny Rico Department: Room: Gender: Male Bobbin Loose End Finder: : 1980 Requested By: Pernell Olivares Order Number: [id number] Jody MD: Spenser Carrillo M.D. Measurements Intervals [place] Rate: 70 P: 33 GA: 159 QRS: 52 QRSD: 98 T: 57 QT: 347 QTc: 376 Interpretive Statements SINUS RHYTHM WITH SINUS ARRHYTHMIA MODERATE T-WAVE ABNORMALITY, CONSIDER ANTERIOR ISCHEMIA [-0.1+ mV T-WAVE IN V3/V4] Compared to ECG 05/29/2022 21:37:13 Possible ischemia now present T-wave abnormality still present Electronically Signed On 06-04-2022 21:23:04 COMMUNITY HEALTH NURSE SUPERVISOR by Spenser Carrillo M.D. [id number]
[2022-06-04 19:19] VITALS: BP 102/69; PULSE 67; RESP 16; TEMP 36.7; O2SAT 97
[2022-06-04 20:01] LABS: Basophils # 0.1 10^3/uL (0.0-0.1); Basophils % 0.7 %; Eosinophils # 0.3 10^3/uL (0.0-0.8); Eosinophils % 3.4 %; Hematocrit 45.8 % (42.0-52.0); Hemoglobin 14.8 g/dL (11.7-16.6); Lymphocytes # 2.8 10^3/uL (0.8-4.8); Lymphocytes % 33.4 %; Mean Corpuscular HGB Conc 32.3 g/dL (30.0-36.0); Mean Corpuscular Hemoglobin 30.7 pg (28.0-34.0); Mean Platelet Volume 9.9 fL (7.4-10.4); Monocytes # 0.7 10^3/uL (0.2-0.9); Monocytes % 8.4 %; Neutrophils # 4.46 10^3/uL (1.8-7.7); Neutrophils % 53.7 %; Nucleated Red Blood Cells % 0 %; Platelet Count 279 10^3/cmm (130-400); Red Blood Count 4.82 10^6/uL (4.1-5.3); Red Cell Distribution Width 13.7 % (12.1-15.1); White Blood Count 8.3 10^3/uL (4.0-10.0)
--- NOTE | 2022-06-04 20:16 | CTR_ITS ---
PROCEDURE INFORMATION: Exam: CTA Chest With Contrast Exam date and time: 06/04/2022 8:37 PM Age: 42 years old Clinical indication: Pain; Chest pressure; Prior surgery; Surgery date: 6+ months; Surgery type: Heart stents, esopageal CA; Additional info: Chest pain TECHNIQUE: Imaging protocol: Computed tomographic angiography of the chest with contrast. 3D rendering (Not supervised by radiologist): MIP and/or 3D reconstructed images were created by the technologist. Radiation optimization: All CT scans at this facility use at least one of these dose optimization techniques: automated exposure control; mA and/or kV adjustment per patient size (includes targeted exams where dose is matched to clinical indication); or iterative reconstruction. Contrast material: OMNI 350; Contrast volume: 100 ml; Contrast route: INTRAVENOUS (IV); REPORTING DATA: Count of CT and Cardiac NM exams in prior 12 months: This patient has received 2 known CTs and 0 known cardiac nuclear medicine studies in the 12 months prior to the current study. COMPARISON: CT angio chest [id number] 12/16/2015 12:26 AM RADIATION DOSE METRICS: Total DLP (mGy-cm): 423.47 FINDINGS: Pulmonary arteries: No main, lobar, or segmental PE identified. Aorta: Unremarkable. No aortic aneurysm. No aortic dissection. Lungs: Minimal lung base atelectasis. No consolidation or dominant lung mass. Pleural spaces: No pneumothorax. No pleural effusion noted. Heart: The heart is not enlarged. No pericardial effusion is noted. Coronary arteries: Severe coronary atherosclerotic disease. Lymph nodes: No bulky hilar or mediastinal lymphadenopathy noted. Diaphragm: Moderate-sized hiatal hernia. Bones/joints: Skeletal structures are age appropriate. No acute fracture is seen. Soft tissues: Unremarkable. CT/CT angio chest PE protcl [id number] IMPRESSION: 1. No PE or acute process visualized. 2. Mild areas of lung base atelectasis likely. Vague pneumonitis possible. 3. Severe atherosclerotic disease. 4. Moderate-sized hiatal hernia.
--- NOTE | 2022-06-04 20:18 | ED_ITS ---
HPI - Chest Pain General: Chief Complaint: Chest Pain Stated Complaint: CP Time Seen by Provider: 06/04/22 20:10 Source: patient History of Present Illness: 42-year-old male who presents with chest pain. He states the pain started around 530. He has had pain he states for 1 hour but it is now 820 so therefore its actually been 3 hours. Pain is sharp and stabbing, worse with deep breaths. Is located in the left parasternal area. He was seen here 1 week ago, diagnosed with pneumonia. He has been treated with doxycycline which she states he does not feel is helping. He is continuing to cough up colored sputum. He denies ongoing fevers, chills or sweats. He does have a long and extensive history clued and coronary artery disease, a new aortic aneurysm, history of GI bleed related to Protonix and aspirin dual therapy so he is currently only on aspirin. He has a history of hypertension. Review of Systems Narrative: See HPI PFSH ED PFSH: Medical History Aorta aneurysm Atherosclerosis of coronary artery COPD (chronic obstructive pulmonary disease) Depression Dyslipidemia Gastroesophageal reflux disease Gross hematuria HTN (hypertension) Presence of stent in LAD coronary artery Urolithiasis Surgical History H/O colonoscopy with polypectomy History of cholecystectomy Hx of heart artery stent S/P ureteral stent placement Status post laser lithotripsy of ureteral calculus Family History Father Heart disease Alcoholic Lung disease Mother Healthy adult Social History Smoking and tobacco status: current every day smoker cigarettes Packs smoked per day: 0.5 Years cigarettes smoked: 20 Alcohol intake: current Alcohol intake frequency: holidays/special occasions only Marital status: Current occupational status: unemployed Physical Exam Const: COMMON NORMALS: no acute distress, patient oriented x3 and healthy appearing HENMT: COMMON NORMALS: normocephalic and atraumatic HEAD & SCALP: normocephalic and atraumatic Eye: COMMON NORMALS: Equal, round and reactive pupils present and EOMs intact bilaterally PUPIL: Yes Equal, round and reactive pupils present Neck/C-Spine: COMMON NORMALS: full ROM and supple Chest: COMMONS NORMALS: normal inspection of the chest OTHER: Chest wall tender in the left parasternal region. Pain is reproduced with palpation. Resp: COMMON NORMALS: normal respiratory effort, No retractions, No use of accessory muscles and clear to auscultation bilaterally AUSCULTATION: clear to auscultation bilaterally Cardio: COMMON NORMALS: regular rate, regular rhythm and No murmurs present (Cardio) RATE: regular rate RHYTHM: regular rhythm GI: COMMON NORMALS: Normal to inspection, nondistended, normoactive bowel sounds present, Soft to palpation, non-tender and no masses PALPATION: Yes Soft to palpation Extremity: COMMON NORMALS: normal to inspection and full ROM Neuro: COMMON NORMALS: patient oriented x3, moves all extremities and no focal motor deficits Psych: COMMON NORMALS: mental status grossly normal, Normal thought process present and cooperative THOUGHT PROCESS: Normal thought process present Skin: COMMON NORMALS: no rashes or lesions noted and no wounds GENERAL SKIN EXAM: no rashes or lesions noted Course Vital Signs: Vital signs: Vital Signs Temperature 98.1 F 06/04/22 19:19 Pulse Rate 53 L 06/04/22 21:35 Respiratory Rate 15 06/04/22 21:35 Blood Pressure 115/80 06/04/22 21:35 Pulse Oximetry 96 06/04/22 21:35 Oxygen Delivery Me thod 06/04/22 21:35 MDM - Chest Pain Medical Decision Making 42-year-old male with a history of coronary artery disease, hyperlipidemia, hypertension, aortic aneurysm previous peptic ulcer disease while on Plavix and aspirin who presents today with chest pain which started approximately 3 hours prior to arrival. He was he describes the pain as sharp, stabbing, worse with deep breaths. States that similar to the pain that he had a week ago when he was diagnosed with pneumonia. He states he still having his cough, still productive of yellow sputum despite 7 days of doxycycline. He is afebrile here. His initial EKG does show concerning ischemic changes with T wave inversion in V1 and V2 and biphasic T waves in V3 through V5 which are new changes in comparison to the EKG from 05/30/2022. We will give the patient 4 baby aspirin as well as sublingual nitroglycerin and morphine. His enzymes are pending at this time. Initial troponin is negative. I suspect that the patient's pain is chest wall. Repeat EKG does show resolution of biphasic T waves. No change after the nitro and the patient's pain. Patient's pain is better after morphine. Medical Records I reviewed the patient's medical records. Patient was seen here on May 30, diagnosed with pneumonia. He was treated with doxycycline. EKG at that time showed no acute ischemic changes. EKG today in comparison shows biphasic T waves which is a new change versus 22 May. Lab Data I reviewed the patient's lab results. Patient's white blood cell count is normal. His initial troponin is normal at 8. His 2-hour troponin is pending at this time. 06/04/22 19:45 06/04/22 19:45 Radiology Impressions Chest X-Ray 06/04/22 19:06 IMPRESSION: No acute findings. Chest CTA 06/04/22 20:16 IMPRESSION: 1. No PE or acute process visualized. 2. Mild areas of lung base atelectasis likely. Vague pneumonitis possible. 3. Severe atherosclerotic disease. 4. Moderate-sized hiatal hernia. Laboratory Results WBC 8.3 10^3/uL (4.0-10.0) 06/04/22 19:45 RBC 4.82 10^6/uL (4.1-5.3) 06/04/22 19:45 Hgb 14.8 g/dL (11.7-16.6) 06/04/22 19:45 Hct 45.8 % (42.0-52.0) 06/04/22 19:45 MCV 95.0 fl (80-94) H 06/04/22 19:45 MCH 30.7 pg (28.0-34.0) 06/04/22 19:45 MCHC 32.3 g/dL (30.0-36.0) 06/04/22 19:45 RDW 13.7 % (12.1-15.1) 06/04/22 19:45 Plt Count 279 10^3/cmm (130-400) 06/04/22 19:45 MPV 9.9 fL (7.4-10.4) 06/04/22 19:45 Neut % (Auto) 53.7 % 06/04/22 19:45 Lymph % (Auto) 33.4 % 06/04/22 19:45 [place] % (Auto) 8.4 % 06/04/22 19:45 Eos % (Auto) 3.4 % 06/04/22 19:45 Baso % (Auto) 0.7 % 06/04/22 19:45 Neut # (Auto) 4.46 10^3/uL (1.8-7.7) 06/04/22 19:45 Lymph # (Auto) 2.8 10^3/uL (0.8-4.8) 06/04/22 19:45 [place] # (Auto) 0.7 10^3/uL (0.2-0.9) 06/04/22 19:45 Eos # (Auto) 0.3 10^3/uL (0.0-0.8) 06/04/22 19:45 Baso # (Auto) 0.1 10^3/uL (0.0-0.1) 06/04/22 19:45 Nucleated RBC % (auto) 0 % 06/04/22 19:45 Nucleated RBCs # 0.0 /100WBC 06/04/22 19:45 Sodium 140 mmol/L (136-145) 06/04/22 19:45 Potassium 4.0 mmol/L (3.5-5.1) 06/04/22 19:45 Chloride 101 mmol/L (98-107) 06/04/22 19:45 Carbon Dioxide 28 mmol/L (22-29) 06/04/22 19:45 Anion Gap 15.0 (5-19) 06/04/22 19:45 BUN 20 mg/dL (6-20) 06/04/22 19:45 Creatinine 0.7 mg/dL (0.7-1.2) 06/04/22 19:45 GFR Calculation 124.3 mL/min (90-130) 06/04/22 19:45 Glucose 88 mg/dL (65-115) 06/04/22 19:45 Calculated Osmolality 292 mOsm/kg (285-295) 06/04/22 19:45 Calcium 9.6 mg/dL (8.5-10.5) 06/04/22 19:45 Total Bilirubin 0.4 mg/dL (0.15-1.2) 06/04/22 19:45 AST 20 U/L (0-40) 06/04/22 19:45 ALT 24 U/L (0-41) 06/04/22 19:45 Alkaline Phosphatase 132 U/L (40-130) H 06/04/22 19:45 Troponin T Baseline 8 ng/L (0-15) 06/04/22 19:45 Total Protein 7.0 g/dL (6.6-8.7) 06/04/22 19:45 Albumin 4.7 g/dL (3.5-5.2) 06/04/22 19:45 Globulin 2.3 g/dL (1.3-4.6) 06/04/22 19:45 EKG Data EKG 1: I personally reviewed and interpreted this EKG as follows: EKG interpretation date: 06/04/22 EKG interpretation time: 19:20 Ischemic changes: non-specific ST-T wave changes Interpretation: Normal sinus rhythm, no ST segment elevation. Biphasic T waves in V3, V4 and V5, inverted T waves in V1 and V2. These changes are new in comparison to 05/30/2022. But in looking back with prior EKGs, the patient does have this change intermittently in the past Discharge Plan Discharge Clinical Impression: Chest pain, Bronchitis Condition: Stable Prescriptions: No Action aspirin 81 mg tablet,delayed release (DR/EC) 81 mg PO DAILY 90 Days Qty: 90 3RF clopidogrel 75 mg tablet 75 mg PO DAILY 90 Days Qty: 90 1RF Hold Instructions: Home Medication placed on hold at Doctor's office gabapentin 600 mg tablet 600 mg PO TID 30 Days Qty: 90 2RF duloxetine [Cymbalta] 60 mg capsule,delayed release(DR/EC) 60 mg PO DAILY 90 Days Qty: 90 1RF atorvastatin 80 mg tablet 80 mg PO BEDTIME Qty: 90 1RF Hold Instructions: Home Medication placed on hold at Doctor's office pantoprazole [Protonix] 40 mg tablet,delayed release (DR/EC) 40 mg PO BID 90 Days Qty: 180 1RF losartan 25 mg tablet 25 mg PO DAILY 90 Days Qty: 90 0RF hydralazine 10 mg tablet 10 mg PO TID PRN (Reason: hypertension) Qty: 60 1RF Rx Instructions: BP >160/>100 nitroglycerin 0.4 mg tablet, sublingual 0.4 mg sublingual Q5M PRN (Reason: Chest Pain) Qty: 30 6RF Rx Instructions: do not exceed 3 doses per episode isosorbide mononitrate 60 mg tablet extended release 24 hr 60 mg PO DAILY Qty: 90 1RF isosorbide mononitrate 30 mg tablet extended release 24 hr 30 mg PO QAM Qty: 90 1RF Rx Instructions: take with 60mg to equal 90mg daily ondansetron 4 mg tablet,disintegrating 4 mg PO Q8H PRN (Reason: nausea and vomiting) Qty: 15 0RF Zenpep 40,000-126,000- 168,000 unit capsule,delayed release(DR/EC) 1 cap PO TIDWM hydrocodone-acetaminophen 5-325 mg tablet 1 tab PO Q6H PRN (Reason: pain) Qty: 14 0RF ondansetron 4 mg tablet,disintegrating 4 mg PO Q6H PRN (Reason: nausea and vomiting) Qty: 14 0RF doxycycline hyclate 100 mg tablet 100 mg PO BID 7 Days Qty: 14 0RF Naprosyn 500 mg tablet 500 mg PO BID PRN (Reason: pain) Qty: 20 0RF Referrals: Anna Roach MD [Primary Care Provider] - Coding Level of Care Code ED Shearing Machine Tender for Clair Mathew
[2022-06-04 20:23] LABS: Alanine Aminotransferase 24 U/L (0-41); Albumin Level 4.7 g/dL (3.5-5.2); Alkaline Phosphatase 132 U/L (40-130); Aspartate Amino Transferase 20 U/L (0-40); Blood Urea Nitrogen 20 mg/dL (6-20); Calcium 9.6 mg/dL (8.5-10.5); Carbon Dioxide 28 mmol/L (22-29); Chloride 101 mmol/L (98-107); Globulin 2.3 g/dL (1.3-4.6); Glomerular Filtration Rate 124.3 mL/min (90-130); Glucose 88 mg/dL (65-115); Osmolality Calculated 292 mOsm/kg (285-295); Sodium 140 mmol/L (136-145); Total Bilirubin 0.4 mg/dL (0.15-1.2)
[2022-06-04 20:25] LABS: Troponin(5th) Baseline 8 ng/L (0-15)
[2022-06-04] MEDS: iohexol 350 mg/mL 500 mL Btl (per mL) IV (20:42)
[2022-06-04] MEDS: aspirin 81 mg Chew Tablet 324 MG PO (20:53)
[2022-06-04] MEDS: morphine 4 mg/mL SDV 1 mL IVP (20:54)
[2022-06-04] MEDS: ondansetron 2 mg/ML SDV 2 mL 4 MG IVP (20:54)
[2022-06-04 20:56] VITALS: BP 108/71; PULSE 68; RESP 14; O2SAT 96
--- NOTE | 2022-06-04 21:17 | ECG_ITS ---
[facility] Test Date: 2022-06-04 Pat Name: Jovanny Rico Department: Room: Gender: Male Closing Agent: : 1980 Requested By: Pernell Olivares Order Number: [id number] Vera MD: Spenser Carrillo M.D. Measurements Intervals [place] Rate: 56 P: 20 [place]: 156 QRS: 59 QRSD: 98 T: 47 QT: 400 QTc: 387 Interpretive Statements SINUS BRADYCARDIA NONSPECIFIC T-WAVE ABNORMALITY Compared to ECG 06/04/2022 19:18:29 Sinus rhythm no longer present Sinus arrhythmia no longer present Possible ischemia no longer present T-wave abnormality still present Electronically Signed On 06-04-2022 21:23:46 CLIENT CARE REPRESENTATIVE by Spenser Carrillo M.D. [email or web address] - It's [email or web address] in [id number]
[2022-06-04 21:35] VITALS: BP 115/80; PULSE 53; RESP 15; O2SAT 96
--- NOTE | 2022-06-04 22:04 | ECG_ITS ---
[facility] Test Date: 2022-06-04 Pat Name: Jovanny Rico Department: Room: Gender: Male Assembly Line Supervisor: : 1980 Requested By: Emily Diallo Order Number: [id number] Jody MD: Spenser Carrillo M.D. Measurements Intervals [place] Rate: 93 P: 40 MT: 144 QRS: -2 QRSD: 101 T: 64 QT: 363 QTc: 452 Interpretive Statements SINUS RHYTHM INFERIOR MYOCARDIAL INFARCTION , OF INDETERMINATE AGE [40+ ms Q WAVE AND/OR ST/T ABNORMALITY IN II/aVF] Compared to ECG 06/04/2022 21:17:15 Myocardial infarct finding now present Sinus bradycardia no longer present T-wave abnormality no longer present Electronically Signed On 06-05-2022 11:21:58 MACHINE FINISHER by Spenser Carrillo M.D. [id number]
[2022-06-04 22:49] VITALS: BP 115/80; PULSE 57; O2SAT 96
[2022-06-04 23:00] LABS: Troponin 5 2HR 8.65 ng/L (0-15)
[2022-06-04 23:49] LABS: Troponin 5 2HR Delta 0.65 ABS# (0-10)
[2022-06-05 00:25] VITALS: BP 123/78; PULSE 52; RESP 16; O2SAT 93
== END 2022-06-05 00:26 | disposition home or self-care (01) ==
PROVIDERS: Physician Assistant; Emergency Provider Emergency Medicine; PCP Family Medicine
DX: R07.9 Chest pain, unspecified (principal); J40 Bronchitis, not specified as acute or chronic; Z79.82 Long term (current) use of aspirin; Z79.02 Long term (current) use of antithrombotics/antiplatelets; K44.9 Diaphragmatic hernia without obstruction or gangrene; J44.9 Chronic obstructive pulmonary disease, unspecified; I25.10 Atherosclerotic heart disease of native coronary artery without angina pectoris; E78.5 Hyperlipidemia, unspecified; I10 Essential (primary) hypertension; F17.210 Nicotine dependence, cigarettes, uncomplicated
CPT/HCPCS: 36415; 71045; 71275; 80053; 84484; 85025; 93005; 96374; 96375; 99285; J2270; J2405; Q9967

== ENCOUNTER 2022-07-11 08:12 | Outpatient (CLI) | payer MEDICAID, SELFPAY ==
--- NOTE | 2022-07-11 08:21 | XR_ITS ---
WS: [id number] EXAMINATION: XR KUB [id number] REASON FOR EXAM: [place] CALCULUS COMPARISON: 01/03/2022 ORDER DATE: 07/11/2022 8:21 AM FINDINGS: There is a nonspecific colonic gas pattern with scattered fecal content and gas. There is no sign of significant small bowel dilation. No pathologic abdominal calcification is seen. Scattered surgical clips noted from prior cholecystectomy. Dystrophic calcifications are noted near the upper and lower group of clips. XR/XR KUB [id number] IMPRESSION: There is no interval change compared with the previous study
== END 2022-07-11 08:13 | disposition home or self-care (01) ==
LOC: RAD 08:16
PROVIDERS: PCP Family Medicine; Visit Provider Urology
DX: N20.0 Calculus of kidney (principal)
CPT/HCPCS: 74018

== ENCOUNTER 2022-08-28 22:45 | Emergency (ER) | payer MEDICAID, SELFPAY ==
[2022-08-28 23:06] VITALS: BP 108/67; PULSE 67; RESP 16; TEMP 36.7; O2SAT 98; BMI 25.0
--- NOTE | 2022-08-28 23:09 | W.ED.CHESTPA ---
HPI - Chest Pain General: Chief Complaint: Chest Pain Stated Complaint: Chest Pain Time Seen by Provider: 08/28/22 23:02 History of Present Illness: Mr. Rico is a 42-year-old gentleman with history of CAD with history of PCI presenting to the emergency department for chest pain. He notes a history of chest pain however typically this resolves with rest and 1 nitro. Starting approximately 1 hour prior to arrival he started having left anterior and substernal sharp chest pain with aching and radiation to left shoulder and arm. Denies associated shortness of breath or nausea, no diaphoresis. He took 3 nitro without significant improvement. Currently endorses moderate to severe intensity discomfort. No other specific changes in health, exacerbating, or alleviating factors identified. Onset (ago): hour(s) Prior episodes: Yes Severity: moderate Quality: sharp Review of Systems General: Reports: 10 or more systems reviewed and unremarkable except in HPI and below PFSH ED PFSH: Medical History Aorta aneurysm Atherosclerosis of coronary artery COPD (chronic obstructive pulmonary disease) Depression Dyslipidemia Gastroesophageal reflux disease Gross hematuria HTN (hypertension) Presence of stent in LAD coronary artery Urolithiasis Surgical History H/O colonoscopy with polypectomy History of cholecystectomy Hx of heart artery stent S/P ureteral stent placement Status post laser lithotripsy of ureteral calculus Family History Father Heart disease Alcoholic Lung disease Mother Healthy adult Social History Smoking and tobacco status: current every day smoker cigarettes Packs smoked per day: 0.5 Years cigarettes smoked: 20 Alcohol intake: current Alcohol intake frequency: holidays/special occasions only Substance/Drug Use: never Marital status: Current occupational status: unemployed Physical Exam Const: COMMON NORMALS: alert GENERAL APPEARANCE: cooperative and well developed HENMT: COMMON NORMALS: normocephalic and atraumatic HEAD & SCALP: normocephalic and atraumatic THROAT: posterior oropharynx normal Eye: COMMON NORMALS: conjunctivae normal CONJUNCTIVA: Yes conjunctivae normal SCLERA: sclerae normal Neck/C-Spine: COMMON NORMALS: supple GENERAL: Yes trachea midline Resp: COMMON NORMALS: clear to auscultation bilaterally EFFORT & INSPECTION: Yes able to speak in complete sentences AUSCULTATION: clear to auscultation bilaterally Cardio: COMMON NORMALS: regular rate and regular rhythm RATE: regular rate RHYTHM: regular rhythm GI: COMMON NORMALS: Soft to palpation PALPATION: Yes Soft to palpation and No Tenderness to palpation present (GI) Extremity: GENERAL: Yes normal exam except as noted and No edema Neuro: COMMON NORMALS: moves all extremities SENSORIUM/ORIENTATION: Yes alert and No Orientation impaired Psych: COMMON NORMALS: mental status grossly normal and Normal thought process present THOUGHT PROCESS: Normal thought process present Course Vital Signs: Vital signs: Vital Signs Temperature 98.1 F 08/28/22 23:06 Pulse Rate 49 L 08/29/22 02:52 Respiratory Rate 16 08/29/22 02:52 Blood Pressure 106/78 08/29/22 02:52 Pulse Oximetry 94 08/29/22 02:52 Oxygen Delivery Me thod Room Air 08/29/22 02:25 MDM - Chest Pain Medical Decision Making 42-year-old gentleman presenting due to chest pain. Exam as above. Nontoxic EKG demonstrates sinus rhythm with normal axis and intervals, nonspecific ST segment abnormalities, no STEMI. Labs with unremarkable hematologic and metabolic panel. Negative range 2-hour delta troponin. Lipase is mildly elevated though patient is not specifically tender in the epigastric region. Chest x-ray with no lobar consolidation or pneumothorax. Patient had stress test on 11/28/2021 which was reviewed. During ED course patient administered aspirin and morphine and feels improved. Given cardiac testing within the past year and ED evaluation patient is satisfactory for outpatient follow-up. The results of ED evaluation were discussed with the patient including prescriptions and/or symptomatic cares (if applicable) including appropriate and responsible use, followup plan, and return precautions. The patient verbalized understanding and felt safe for discharge. Medical Records I reviewed the patient's medical records. Lab Data I reviewed the patient's lab results. 08/28/22 23:36 08/28/22 23:36 Radiology Impressions Chest X-Ray 08/28/22 23:19 IMPRESSION: No acute findings. Laboratory Results WBC 9.5 10^3/uL (4.0-10.0) 08/28/22 23:36 RBC 4.54 10^6/uL (4.1-5.3) 08/28/22 23: Hgb 13.7 g/dL (11.7-16.6) 08/28/22 23: Hct 42.3 % (42.0-52.0) 08/28/22 23: MCV 93.2 fl (80-94) 08/28/22 23: MCH 30.2 pg (28.0-34.0) 08/28/22 23: MCHC 32.4 g/dL (30.0-36.0) 08/28/22 23: RDW 13.9 % (12.1-15.1) 08/28/22: Plt Count 255 10^3/cmm (130-400) 08/28/22 23: MPV 9.8 fL (7.4-10.4) 08/28/22 23: Neut % (Auto) 50.1 % 08/28/22 23: Lymph % (Auto) 33.1 % 08/28/22 23: [place] % (Auto) 8.5 % 08/28/22 23: Eos % (Auto) 7.3 % 08/28/22 23: Baso % (Auto) 0.7 % 08/28/22: Neut # (Auto) 4.75 10^3/uL (1.8-7.7) 08/28/22 23: Lymph # (Auto) 3.1 10^3/uL (0.8-4.8) 08/28/22 23: [place] # (Auto) 0.8 10^3/uL (0.2-0.9) 08/28/22 23: Eos # (Auto) 0.7 10^3/uL (0.0-0.8) 08/28/22 23: Baso # (Auto) 0.1 10^3/uL (0.0-0.1) 08/28/22: Nucleated RBC % (auto) 0 % 08/28/22 23: Nucleated RBCs # 0.0 /100WBC 08/28/22 23: Sodium 137 mmol/L (136-145) 08/28/22 23: Potassium 4.3 mmol/L (3.5-5.1) 08/28/22 23:36 Chloride 101 mmol/L (98-107) 08/28/22 23:36 Carbon Dioxide 26 mmol/L (22-29) 08/28/22 23:36 Anion Gap 14.3 (5-19) 08/28/22 23:36 BUN 17 mg/dL (6-20) 08/28/22 23:36 Creatinine 0.7 mg/dL (0.7-1.2) 08/28/22 23:36 GFR Calculation 124.3 mL/min (90-130) 08/28/22 23:36 Glucose 93 mg/dL (65-115) 08/28/22 23:36 Calculated Osmolality 285 mOsm/kg (285-295) 08/28/22 23:36 Calcium 9.2 mg/dL (8.5-10.5) 08/28/22 23:36 Total Bilirubin 0.2 mg/dL (0.15-1.2) 08/28/22 23:36 AST 22 U/L (0-40) 08/28/22 23:36 ALT 20 U/L (0-41) 08/28/22 23:36 Alkaline Phosphatase 105 U/L (40-130) 08/28/22 23:36 Troponin T Baseline 7 ng/L (0-15) 08/28/22 23:36 Troponin T 120 Minute 7.12 ng/L (0-15) 08/29/22 02:02 Delta Troponin T 0.12 ABS# (0-10) 08/29/22 02:02 NT-Pro-B Natriuret Pep 36 pg/mL (0-125) 08/28/22 23:36 Total Protein 6.1 g/dL (6.6-8.7) L 08/28/22 23:36 Albumin 4.3 g/dL (3.5-5.2) 08/28/22 23:36 Globulin 1.8 g/dL (1.3-4.6) 08/28/22 23:36 Lipase 93 U/L (13-60) H 08/28/22 23:36 Discharge Plan Discharge Patient Disposition: Home Clinical Impression: Chest pain, Bradycardia, Elevated lipase Condition: Stable Prescriptions: New ondansetron 4 mg tablet,disintegrating 4 mg PO Q8H PRN (Reason: nausea and vomiting) Qty: 15 0RF oxycodone 5 mg tablet 5 mg PO Q4H PRN (Reason: pain) Qty: 10 0RF No Action hydralazine 10 mg tablet 10 mg PO TID PRN (Reason: hypertension) Qty: 60 1RF Rx Instructions: BP >160/>100 atorvastatin 80 mg tablet 80 mg PO BEDTIME Qty: 90 1RF Hold Instructions: Home Medication placed on hold at Doctor's office duloxetine [Cymbalta] 60 mg capsule,delayed release(DR/EC) 60 mg PO DAILY 90 Days Qty: 90 1RF aspirin 81 mg tablet,delayed release (DR/EC) 81 mg PO DAILY 90 Days Qty: 90 3RF gabapentin 600 mg tablet 600 mg PO TID 30 Days Qty: 90 2RF isosorbide mononitrate 60 mg tablet extended release 24 hr 60 mg PO DAILY Qty: 90 1RF isosorbide mononitrate 30 mg tablet extended release 24 hr 30 mg PO QAM Qty: 90 1RF Rx Instructions: take with 60mg to equal 90mg daily pantoprazole [Protonix] 40 mg tablet,delayed release (DR/EC) 40 mg PO BID 90 Days Qty: 180 1RF losartan 25 mg tablet 25 mg PO DAILY 90 Days Qty: 90 1RF clopidogrel 75 mg tablet 75 mg PO DAILY 90 Days Qty: 90 1RF Hold Instructions: Home Medication placed on hold at Doctor's office nitroglycerin 0.4 mg tablet, sublingual 0.4 mg sublingual Q5M PRN (Reason: Chest Pain) Qty: 25 6RF Rx Instructions: do not exceed 3 doses per episode Zenpep 40,000-126,000- 168,000 unit capsule,delayed release(DR/EC) 1 cap PO TIDWM azithromycin 250 mg tablet See Rx Instructions .ROUTE .COMPLEX Qty: 6 0RF Rx Instructions: For 250 mg dose pack: take 500 mg today (day 1), then 250 mg for 4 days (days 2-5) Discharge Orders: Discharge ED (Routine); Ordered 08/29/22 Ordered By: Harrison Cruz Referrals: Anan Roach MD [Primary Care Provider] - Discharge Diet: Clear Liquid Discharge Activity: Increase activity as tolerated Patient Instructions: Chest Pain (ED), Pancreatitis (ED), Opioid Safety Activity Restrictions/Additional Instructions: Thank you for visiting the emergency department. You were seen evaluated for chest pain. The exact cause of your symptoms is unclear however does not appear to need hospitalization at this time. You may have mild pancreatitis. I recommend clear liquid diet and slowly advancing as tolerated avoiding fatty foods and foods high in sugar. I will message case management for further cardiology follow-up. Given stress test within 1 year you do not require additional inpatient cardiology testing. Please follow-up with your primary care provider. Return to the emergency department for worsening or uncontrolled symptoms, inability tolerate medication, or anything else that you are concerned about and feel needs emergency department evaluation. Coding Level of Care Code ED Town Administrator for Clair Mathew
--- NOTE | 2022-08-28 23:19 | ECG_ITS ---
[facility] Test Date: 2022-08-28 Pat Name: Jovanny Rico Department: Room: Gender: Male Weatherization And Housing Inspector: : 1980 Requested By: Harrison Cruz Order Number: [id number] Vera MD: Msisy Amaya M.D. Measurements Intervals [place] Rate: 68 P: 47 DC: 161 QRS: 43 QRSD: 92 T: 48 QT: 357 QTc: 380 Interpretive Statements SINUS RHYTHM WITH SINUS ARRHYTHMIA VOLTAGE CRITERIA FOR LVH [MEETS CRITERIA IN ONE OF: R(aVL), S(V1), R(V5), R(V5/V6)+S(V1)] NONSPECIFIC T-WAVE ABNORMALITY Compared to ECG 06/04/2022 22:04:23 Left ventricular hypertrophy now present T-wave abnormality now present Myocardial infarct finding no longer present Electronically Signed On 08-29-2022 8:22:13 CDT by Missy Amaya M.D. [id number]
--- NOTE | 2022-08-28 23:19 | XRR_ITS ---
PROCEDURE INFORMATION: Exam: XR Chest Exam date and time: 08/28/2022 10:25 PM Age: 42 years old Clinical indication: Pain; Chest pressure; Prior surgery; Surgery date: 6+ months; Surgery type: Stents; Additional info: Cp TECHNIQUE: Imaging protocol: Radiologic exam of the chest. Views: 1 view. COMPARISON: CR (CHEST, ) 06/04/2022 7:17 PM FINDINGS: Lungs: Unremarkable. No consolidation. Pleural spaces: Unremarkable. No pleural effusion. No pneumothorax. Heart/Mediastinum: Unremarkable. No cardiomegaly. Bones/joints: Unremarkable. XR/XR chest 1V portable [id number] IMPRESSION: No acute findings.
[2022-08-28] MEDS: morphine 4 mg/mL SDV 1 mL IVP (23:33)
[2022-08-28] MEDS: aspirin 81 mg Chew Tablet 324 MG PO (23:33)
[2022-08-29 00:18] LABS: Basophils # 0.1 10^3/uL (0.0-0.1); Basophils % 0.7 %; Eosinophils # 0.7 10^3/uL (0.0-0.8); Eosinophils % 7.3 %; Hematocrit 42.3 % (42.0-52.0); Hemoglobin 13.7 g/dL (11.7-16.6); Lymphocytes # 3.1 10^3/uL (0.8-4.8); Lymphocytes % 33.1 %; Mean Corpuscular HGB Conc 32.4 g/dL (30.0-36.0); Mean Corpuscular Hemoglobin 30.2 pg (28.0-34.0); Mean Corpuscular Volume 93.2 fl (80-94); Mean Platelet Volume 9.8 fL (7.4-10.4); Monocytes # 0.8 10^3/uL (0.2-0.9); Monocytes % 8.5 %; Neutrophils # 4.75 10^3/uL (1.8-7.7); Neutrophils % 50.1 %; Nucleated Red Blood Cells % 0 %; Platelet Count 255 10^3/cmm (130-400); Red Blood Count 4.54 10^6/uL (4.1-5.3); Red Cell Distribution Width 13.9 % (12.1-15.1); White Blood Count 9.5 10^3/uL (4.0-10.0)
[2022-08-29 00:35] LABS: Troponin(5th) Baseline 7 ng/L (0-15)
--- NOTE | 2022-08-29 00:44 | PC.NURSE ---
1 ASPIRIN TAB DROPPED ON FLOOR. OVERRIDE ASA FROM PYXIS. 324MG GIVEN TOTAL
[2022-08-29 00:53] LABS: Alanine Aminotransferase 20 U/L (0-41); Albumin Level 4.3 g/dL (3.5-5.2); Alkaline Phosphatase 105 U/L (40-130); Anion Gap 14.3 (5-19); Aspartate Amino Transferase 22 U/L (0-40); Blood Urea Nitrogen 17 mg/dL (6-20); Calcium 9.2 mg/dL (8.5-10.5); Carbon Dioxide 26 mmol/L (22-29); Chloride 101 mmol/L (98-107); Globulin 1.8 g/dL (1.3-4.6); Glomerular Filtration Rate 124.3 mL/min (90-130); Glucose 93 mg/dL (65-115); Lipase 93 U/L (13-60); NT Pro B Type Natriuretic Pept 36 pg/mL (0-125); Osmolality Calculated 285 mOsm/kg (285-295); Potassium 4.3 mmol/L (3.5-5.1); Sodium 137 mmol/L (136-145); Total Bilirubin 0.2 mg/dL (0.15-1.2); Total Protein 6.1 g/dL (6.6-8.7)
--- NOTE | 2022-08-29 01:02 | ECG_ITS ---
[facility] Test Date: 2022-08-29 Pat Name: Jovanny Rico Department: Room: Gender: Male Magnetic Prospector: : 1980 Requested By: Harrison Cruz Order Number: [id number] Jody MD: Spenser Carrillo M.D. Measurements Intervals [place] Rate: 58 P: 17 [place]: 130 QRS: 61 QRSD: 98 T: 53 QT: 405 QTc: 399 Interpretive Statements SINUS BRADYCARDIA MODERATE T-WAVE ABNORMALITY, CONSIDER ANTERIOR ISCHEMIA [-0.1+ mV T-WAVE IN V3/V4] Compared to ECG 08/28/2022 23:09:03 Possible ischemia now present Sinus rhythm no longer present Sinus arrhythmia no longer present Left ventricular hypertrophy no longer present T-wave abnormality still present Electronically Signed On 08-29-2022 8:30:57 CDT by Spenser Carrillo M.D. [id number]
[2022-08-29 01:14] VITALS: BP 111/79; PULSE 48; RESP 15; O2SAT 95
[2022-08-29 02:25] VITALS: BP 107/75; PULSE 49; RESP 15; O2SAT 94
[2022-08-29 02:29] LABS: Troponin 5 2HR 7.12 ng/L (0-15)
[2022-08-29 02:39] LABS: Troponin 5 2HR Delta 0.12 ABS# (0-10)
[2022-08-29 02:52] VITALS: BP 106/78; PULSE 49; RESP 16; O2SAT 94
--- NOTE | 2022-08-29 08:21 | DCPLANNER ---
Addendum entered by Hoda Cox 09/13/22 12:51: This appointment was cancelled Addendum entered by Hoda Cox 09/05/22 10:26: Patient has a follow up appointment scheduled for Tuesday, September 13, 2022 at 10:45 with Alessandra Zelaya at [facility]. Original Note: construction site manager had message to schedule a follow up appointment for patient with cardiology. construction site manager sent patients information to the front office staff at [facility]. Patients information will be printed and reviewed. Clinic will call patient with appointment information.
== END 2022-08-29 02:52 | disposition home or self-care (01) ==
PROVIDERS: Emergency Provider Emergency Medicine; PCP Family Medicine
DX: R07.9 Chest pain, unspecified (principal); R00.1 Bradycardia, unspecified; R79.89 Other specified abnormal findings of blood chemistry; Z79.82 Long term (current) use of aspirin; Z79.02 Long term (current) use of antithrombotics/antiplatelets; J44.9 Chronic obstructive pulmonary disease, unspecified; I25.10 Atherosclerotic heart disease of native coronary artery without angina pectoris; E78.5 Hyperlipidemia, unspecified; I10 Essential (primary) hypertension; F17.210 Nicotine dependence, cigarettes, uncomplicated
CPT/HCPCS: 71045; 80053; 83690; 83880; 84484; 85025; 93005; 96374; 96375; 99285; J2270

== ENCOUNTER 2022-10-08 22:34 | Emergency (ER) | payer MEDICAID, SELFPAY ==
[2022-10-08 22:35] VITALS: BP 171/73; PULSE 85; RESP 20; TEMP 36.7; O2SAT 97; BMI 24.4
--- NOTE | 2022-10-08 22:37 | ECG_ITS ---
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 Measurements Intervals [place] Rate: 55 P: 12 CT: 118 QRS: 58 QRSD: 99 T: 64 QT: 408 QTc: 391 Interpretive Statements SINUS BRADYCARDIA WITH SHORT CT INTERVAL Compared to ECG 08/29/2022 01:02:[address] interval now present T-wave abnormality no longer present Possible ischemia no longer present Electronically Signed On 10-09-2022 8:11:59 CDT by Jurgen Mardaiaga M.D. [id number]
--- NOTE | 2022-10-08 22:37 | XRR_ITS ---
PROCEDURE INFORMATION: Exam: XR Chest Exam date and time: 10/08/2022 10:45 PM Age: 42 years old Clinical indication: Pain; Chest pressure; Additional info: Chest pain TECHNIQUE: Imaging protocol: Radiologic exam of the chest. Views: 1 view. COMPARISON: CR (CHEST, ) 08/28/2022 10:25 PM FINDINGS: Lungs: Unremarkable. No consolidation. Pleural spaces: Unremarkable. No pleural effusion. No pneumothorax. Heart/Mediastinum: There is a small hiatal hernia. Heart is within normal limits of size. Bones/joints: Unremarkable. XR/XR chest 1V portable [id number] IMPRESSION: No acute findings.
[2022-10-08 23:23] LABS: Basophils # 0.1 10^3/uL (0.0-0.1); Basophils % 0.9 %; Eosinophils # 0.3 10^3/uL (0.0-0.8); Eosinophils % 3.4 %; Hematocrit 44.1 % (42.0-52.0); Hemoglobin 14.5 g/dL (11.7-16.6); Lymphocytes # 2.6 10^3/uL (0.8-4.8); Lymphocytes % 31.4 %; Mean Corpuscular HGB Conc 32.9 g/dL (30.0-36.0); Mean Corpuscular Hemoglobin 30.3 pg (28.0-34.0); Mean Corpuscular Volume 92.3 fl (80-94); Mean Platelet Volume 9.7 fL (7.4-10.4); Monocytes # 0.8 10^3/uL (0.2-0.9); Monocytes % 9.2 %; Nucleated Red Blood Cells % 0 %; Platelet Count 268 10^3/cmm (130-400); Red Blood Count 4.78 10^6/uL (4.1-5.3); Red Cell Distribution Width 15.2 % (12.1-15.1); White Blood Count 8.2 10^3/uL (4.0-10.0)
[2022-10-08 23:35] LABS: Troponin(5th) Baseline 7 ng/L (0-15)
[2022-10-08 23:37] LABS: Alanine Aminotransferase 18 U/L (0-41); Albumin Level 4.4 g/dL (3.5-5.2); Alkaline Phosphatase 118 U/L (40-130); Anion Gap 16.8 (5-19); Aspartate Amino Transferase 15 U/L (0-40); Blood Urea Nitrogen 14 mg/dL (6-20); Calcium 9.4 mg/dL (8.5-10.5); Carbon Dioxide 25 mmol/L (22-29); Chloride 104 mmol/L (98-107); Globulin 2.1 g/dL (1.3-4.6); Glomerular Filtration Rate 106.5 mL/min (90-130); Glucose 140 mg/dL (65-115); Osmolality Calculated 297 mOsm/kg (285-295); Potassium 3.8 mmol/L (3.5-5.1); Sodium 142 mmol/L (136-145); Total Bilirubin 0.4 mg/dL (0.15-1.2); Total Protein 6.5 g/dL (6.6-8.7)
--- NOTE | 2022-10-09 00:37 | ECG_ITS ---
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 Measurements Intervals [place] Rate: 86 P: 67 ND: 136 QRS: 60 QRSD: 98 T: 73 QT: 345 QTc: 414 Interpretive Statements SINUS RHYTHM MINIMAL VOLTAGE CRITERIA FOR LVH, CONSIDER NORMAL VARIANT [MEETS CRITERIA IN ONE OF: R(aVL), S(V1), R(V5), R(V5/V6)+S(V1)] NONSPECIFIC T-WAVE ABNORMALITY Compared to ECG 08/29/2022 01:02:28 Sinus bradycardia no longer present Possible ischemia no longer present T-wave abnormality still present Electronically Signed On 10-09-2022 8:16:12 CDT by Jurgen Maradiaga M.D. [id number]
[2022-10-09 01:42] VITALS: BP 115/77; PULSE 54; RESP 18
[2022-10-09 01:42] LABS: Troponin 5 2HR 6.79 ng/L (0-15)
[2022-10-09] MEDS: morphine 4 mg/mL SDV 1 mL IVP ×2 (01:42→02:53)
[2022-10-09] MEDS: nitroglycerin 1 gm/inch oint Pkt 1 INCH TOPICAL (01:42)
[2022-10-09] MEDS: ondansetron 2 mg/ML SDV 2 mL 4 MG IVP (01:42)
[2022-10-09] MEDS: aspirin 81 mg Chew Tablet 324 MG PO (01:42)
[2022-10-09 01:50] VITALS: BP 115/77; PULSE 58; RESP 13; O2SAT 96
[2022-10-09 02:21] LABS: Troponin 5 2HR Delta -0.21 ABS# (0-10)
[2022-10-09 02:53] VITALS: RESP 18
[2022-10-09] MEDS: ketorolac 30 mg/mL INJ 15 MG IVP (02:53)
[2022-10-09] MEDS: lidocaine 2% viscous 15 ML, aluminum-mag hydrox-simethicon 30 ML, sucralfate oral liq 1 GM PO (03:00)
[2022-10-09 03:05] VITALS: BP 115/77; PULSE 67; RESP 13; O2SAT 95
[2022-10-09 03:06] VITALS: BP 115/77; PULSE 57; RESP 14; O2SAT 95
--- NOTE | 2022-10-11 00:57 | ED_ITS ---
HPI - Chest Pain General: Chief Complaint: Chest Pain Stated Complaint: Cp Time Seen by Provider: 10/09/22 01:24 Source: patient History of Present Illness: 42 year old male with a history of coronary disease. He said coronary stenting last year. He presents with chest discomfort. Unrelieved by nitroglycerin at home. He has had some shortness of breath and nausea. No vomiting. Pain radiates to his neck. 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 past history: coronary artery disease Onset (ago): hour(s) Timing of current episode: constant Prior episodes: Yes Onset: during rest Pain location: substernal Pain radiation: neck and jaw/teeth Quality: aching Associated symptoms: Reports dyspnea and nausea; Deny abdominal pain, diaphoresis, fever(s) or vomiting Treatment prior to arrival: nitroglycerin Review of Systems Const: Denies: fever(s) or diaphoresis Resp: Reports: dyspnea GI: Reports: nausea; Denies: abdominal pain or vomiting PFSH ED PFSH: Medical History Aorta aneurysm Atherosclerosis of coronary artery COPD (chronic obstructive pulmonary disease) Depression Dyslipidemia Gastroesophageal reflux disease Gross hematuria HTN (hypertension) Presence of stent in LAD coronary artery Urolithiasis Surgical History H/O colonoscopy with polypectomy History of cholecystectomy Hx of heart artery stent S/P ureteral stent placement Status post laser lithotripsy of ureteral calculus Family History Father Heart disease Alcoholic Lung disease Mother Healthy adult Social History Smoking and tobacco status: current every day smoker cigarettes Packs smoked per day: 0.5 Years cigarettes smoked: 20 Alcohol intake: current Alcohol intake frequency: holidays/special occasions only Substance/Drug Use: never Marital status: Current occupational status: unemployed Physical Exam Const: COMMON NORMALS: no acute distress GENERAL APPEARANCE: cooperative; not ill appearing and not frail appearing HENMT: COMMON NORMALS: normocephalic, atraumatic and Normal external nose present HEAD & SCALP: normocephalic and atraumatic FACE & SINUS: normal facial exam and face symmetric NOSE: Normal external nose present Eye: COMMON NORMALS: Equal, round and reactive pupils present and EOMs intact bilaterally PUPIL: Yes Equal, round and reactive pupils present Neck/C-Spine: GENERAL: Yes trachea midline Chest: CHEST: Yes Symmetrical chest wall rise and Yes tenderness Resp: COMMON NORMALS: normal respiratory effort, No retractions, No use of accessory muscles and clear to auscultation bilaterally AUSCULTATION: clear to auscultation bilaterally Cardio: COMMON NORMALS: regular rate and regular rhythm RATE: regular rate RHYTHM: regular rhythm GI: COMMON NORMALS: Normal to inspection, nondistended, normoactive bowel sounds present Extremity: COMMON NORMALS: no pedal edema Neuro: SATHISH COMA SCALE: document GCS findings Sathish coma scale eye opening: Spontaneous [place] coma scale verbal response: Orientated [place] coma scale motor response: Obey commands [place] coma scale total score: 15 SENSORY EXAM: Yes extremities (intact) Psych: COMMON NORMALS: speech normal SPEECH: Yes normal speech Skin: COMMON NORMALS: no rashes or lesions noted GENERAL SKIN EXAM: no rashes or lesions noted Course Vital Signs: Vital signs: Vital Signs Temperature 98.1 F 10/08/22 22:35 Pulse Rate 57 L 10/09/22 03:06 Respiratory Rate 14 10/09/22 03:06 Blood Pressure 115/77 10/09/22 03:06 Pulse Oximetry 95 10/09/22 03:06 Oxygen Delivery Me thod Room Air 10/09/22 03:05 MDM - Chest Pain Medical Decision Making Pain not relieved by nitroglycerin. Somewhat improved with morphine. EKG shows no acute St. changes. Chest X-ray is negative. Troponins are negative. He'll be allowed discharge. close outpatient follow up. Lab Data 10/08/22 22:52 10/08/22 22:52 Radiology Impressions Chest X-Ray 10/08/22 22:37 IMPRESSION: No acute findings. Laboratory Results WBC 8.2 10^3/uL (4.0-10.0) 10/08/22 22:52 RBC 4.78 10^6/uL (4.1-5.3) 10/08/22 22:52 Hgb 14.5 g/dL (11.7-16.6) 10/08/22 22:52 Hct 44.1 % (42.0-52.0) 10/08/22 22:52 MCV 92.3 fl (80-94) 10/08/22 22:52 MCH 30.3 pg (28.0-34.0) 10/08/22 22:52 MCHC 32.9 g/dL (30.0-36.0) 10/08/22 22:52 RDW 15.2 % (12.1-15.1) H 10/08/22 22:52 Plt Count 268 10^3/cmm (130-400) 10/08/22 22:52 MPV 9.7 fL (7.4-10.4) 10/08/22 22:52 Neut % (Auto) 55.0 % 10/08/22 22:52 Lymph % (Auto) 31.4 % 10/08/22 22:52 [place] % (Auto) 9.2 % 10/08/22 22:52 Eos % (Auto) 3.4 % 10/08/22 22:52 Baso % (Auto) 0.9 % 10/08/22 22:52 Neut # (Auto) 4.50 10^3/uL (1.8-7.7) 10/08/22 22:52 Lymph # (Auto) 2.6 10^3/uL (0.8-4.8) 10/08/22 22:52 [place] # (Auto) 0.8 10^3/uL (0.2-0.9) 10/08/22 22:52 Eos # (Auto) 0.3 10^3/uL (0.0-0.8) 10/08/22 22:52 Baso # (Auto) 0.1 10^3/uL (0.0-0.1) 10/08/22 22:52 Nucleated RBC % (auto) 0 % 10/08/22 22:52 Nucleated RBCs # 0.0 /100WBC 10/08/22 22:52 Sodium 142 mmol/L (136-145) 10/08/22 22:52 Potassium 3.8 mmol/L (3.5-5.1) 10/08/22 22:52 Chloride 104 mmol/L (98-107) 10/08/22 22:52 Carbon Dioxide 25 mmol/L (22-29) 10/08/22 22:52 Anion Gap 16.8 (5-19) 10/08/22 22:52 BUN 14 mg/dL (6-20) 10/08/22 22:52 Creatinine 0.8 mg/dL (0.7-1.2) 10/08/22 22:52 GFR Calculation 106.5 mL/min (90-130) 10/08/22 22:52 Glucose 140 mg/dL (65-115) H 10/08/22 22:52 Calculated Osmolality 297 mOsm/kg (285-295) H 10/08/22 22:52 Calcium 9.4 mg/dL (8.5-10.5) 10/08/22 22:52 Total Bilirubin 0.4 mg/dL (0.15-1.2) 10/08/22 22:52 AST 15 U/L (0-40) 10/08/22 22:52 ALT 18 U/L (0-41) 10/08/22 22:52 Alkaline Phosphatase 118 U/L (40-130) 10/08/22 22:52 Troponin T Baseline 7 ng/L (0-15) 10/08/22 22:52 Troponin T 120 Minute 6.79 ng/L (0-15) 10/09/22 00:54 Delta Troponin T -0.21 ABS# (0-10) L 10/09/22 00:54 Total Protein 6.5 g/dL (6.6-8.7) L 10/08/22 22:52 Albumin 4.4 g/dL (3.5-5.2) 10/08/22 22:52 Globulin 2.1 g/dL (1.3-4.6) 10/08/22 22:52 Discharge Plan Discharge Patient Disposition: Home Clinical Impression: Chest pain Condition: Stable Prescriptions: No Action hydralazine 10 mg tablet 10 mg PO TID PRN (Reason: hypertension) Qty: 60 1RF Rx Instructions: BP >160/>100 atorvastatin 80 mg tablet 80 mg PO BEDTIME Qty: 90 1RF Hold Instructions: Home Medication placed on hold at Doctor's office duloxetine [Cymbalta] 60 mg capsule,delayed release(DR/EC) 60 mg PO DAILY 90 Days Qty: 90 1RF aspirin 81 mg tablet,delayed release (DR/EC) 81 mg PO DAILY 90 Days Qty: 90 3RF gabapentin 600 mg tablet 600 mg PO TID 30 Days Qty: 90 2RF isosorbide mononitrate 60 mg tablet extended release 24 hr 60 mg PO DAILY Qty: 90 1RF isosorbide mononitrate 30 mg tablet extended release 24 hr 30 mg PO QAM Qty: 90 1RF Rx Instructions: take with 60mg to equal 90mg daily pantoprazole [Protonix] 40 mg tablet,delayed release (DR/EC) 40 mg PO BID 90 Days Qty: 180 1RF losartan 25 mg tablet 25 mg PO DAILY 90 Days Qty: 90 1RF clopidogrel 75 mg tablet 75 mg PO DAILY 90 Days Qty: 90 1RF Hold Instructions: Home Medication placed on hold at Doctor's office nitroglycerin 0.4 mg tablet, sublingual 0.4 mg sublingual Q5M PRN (Reason: Chest Pain) Qty: 25 6RF Rx Instructions: do not exceed 3 doses per episode ondansetron 4 mg tablet,disintegrating 4 mg PO Q8H PRN (Reason: nausea and vomiting) Qty: 15 0RF oxycodone 5 mg tablet 5 mg PO Q4H PRN (Reason: pain) Qty: 10 0RF Zenpep 40,000-126,000- 168,000 unit capsule,delayed release(DR/EC) 1 cap PO TIDWM azithromycin 250 mg tablet See Rx Instructions .ROUTE .COMPLEX Qty: 6 0RF Rx Instructions: For 250 mg dose pack: take 500 mg today (day 1), then 250 mg for 4 days (days 2-5) Discharge Orders: Discharge ED (Routine); Ordered 10/09/22 Ordered By: Earl Michael Referrals: Missy Amaya MD [Physician] - 4-7 days Anna Roach MD [Primary Care Provider] - 1-3 days Patient Instructions: Chest Pain (ED), Opioid Safety, Pain Management Coding Level of Care Code ED Traffic I Manager for Clair Mathew
== END 2022-10-09 03:12 | disposition home or self-care (01) ==
PROVIDERS: Emergency Provider Emergency Medicine; PCP Family Medicine
DX: R07.9 Chest pain, unspecified (principal); I10 Essential (primary) hypertension; E78.5 Hyperlipidemia, unspecified; I25.10 Atherosclerotic heart disease of native coronary artery without angina pectoris; J44.9 Chronic obstructive pulmonary disease, unspecified; F17.210 Nicotine dependence, cigarettes, uncomplicated; Z79.82 Long term (current) use of aspirin; Z79.899 Other long term (current) drug therapy; Z95.5 Presence of coronary angioplasty implant and graft
CPT/HCPCS: 36415; 71045; 80053; 84484; 85025; 93005; 96374; 96375; 96376; 99285; J1885; J2270; J2405

== ENCOUNTER 2022-10-10 23:09 | Emergency (ER) | payer MEDICAID, SELFPAY ==
[2022-10-10 23:12] VITALS: BMI 23.7
--- NOTE | 2022-10-10 23:12 | XRR_ITS ---
PROCEDURE INFORMATION: Exam: XR Chest Exam date and time: 10/10/2022 11:33 PM Age: 42 years old Clinical indication: Pain; Chest pressure; Prior surgery; Surgery date: 6+ months; Surgery type: Heart stent, egd; Additional info: Chest pain TECHNIQUE: Imaging protocol: Radiologic exam of the chest. Views: 1 view. COMPARISON: CR (CHEST, ) 10/08/2022 10:45 PM FINDINGS: Lungs: Lungs are clear bilaterally. Pleural spaces: No pleural effusion. No pneumothorax. Heart/Mediastinum: Stable mild enlargement of the cardiac silhouette. Mediastinal contours are unremarkable. Bones/joints: Unremarkable for age. XR/XR chest 1V portable [id number] IMPRESSION: 1. No acute cardiopulmonary process. 2. Incidental/nonacute findings are listed in the report.
[2022-10-10 23:14] VITALS: BP 130/78; PULSE 72; RESP 16; TEMP 36.8; O2SAT 96
--- NOTE | 2022-10-10 23:16 | ECG_ITS ---
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 Measurements Intervals [place] Rate: 72 P: 47 NE: 165 QRS: 56 QRSD: 98 T: 55 QT: 359 QTc: 395 Interpretive Statements SINUS RHYTHM NONSPECIFIC T-WAVE ABNORMALITY Compared to ECG 10/09/2022 01:29:40 T-wave abnormality now present Sinus bradycardia no longer present Short NE interval no longer present Electronically Signed On 10-11-2022 16:51:12 CDT by Don Bradley M.D. [id number]
--- NOTE | 2022-10-10 23:18 | ED_ITS ---
HPI - Chest Pain General: Chief Complaint: Chest Pain Stated Complaint: chest pain Time Seen by Provider: 10/10/22 23:12 History of Present Illness: 42-year-old male patient comes in today with chest chest pain he rates 9 out of 10. Patient had taken 2 dose of nitro at home with minimal relief. Patient denies any fever, shortness of breath, or vomiting. Patient does report some nausea. Patient has a history of coronary artery disease, anxiety disorder, chronic pain disorder, stable angina, and GERD. 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 past history: coronary artery disease Onset (ago): hour(s) Timing of current episode: constant Onset: during rest Pain location: substernal Pain radiation: none Severity: moderate Pain scale (0-10): 9 Quality: heaviness Relieving factors: nothing Associated symptoms: Reports nausea; Deny dyspnea, fever(s) or vomiting Review of Systems General: Reports: 10 or more systems reviewed and unremarkable except in HPI and below Const: Denies: fever(s) ENMT: Denies: throat pain Card: Reports: chest pain Resp: Denies: dyspnea GI: Reports: nausea; Denies: vomiting, diarrhea or constipation : Denies: difficulty urinating Musc: Denies: neck pain Skin/Breast: Denies: rash Neuro: Denies: headache(s) PFSH ED PFSH: Medical History Aorta aneurysm Atherosclerosis of coronary artery COPD (chronic obstructive pulmonary disease) Depression Dyslipidemia Gastroesophageal reflux disease Gross hematuria HTN (hypertension) Presence of stent in LAD coronary artery Urolithiasis Surgical History H/O colonoscopy with polypectomy History of cholecystectomy Hx of heart artery stent S/P ureteral stent placement Status post laser lithotripsy of ureteral calculus Family History Father Heart disease Alcoholic Lung disease Mother Healthy adult Social History Smoking and tobacco status: current every day smoker cigarettes Packs smoked per day: 0.5 Years cigarettes smoked: 20 Alcohol intake: current Alcohol intake frequency: holidays/special occasions only Substance/Drug Use: never Marital status: Current occupational status: unemployed Physical Exam Const: COMMON NORMALS: alert HENMT: COMMON NORMALS: normocephalic HEAD & SCALP: normocephalic Neck/C-Spine: COMMON NORMALS: no meningeal signs Chest: CHEST: No tenderness Resp: COMMON NORMALS: normal respiratory effort and clear to auscultation bilaterally AUSCULTATION: clear to auscultation bilaterally Cardio: COMMON NORMALS: regular rate and regular rhythm RATE: regular rate RHYTHM: regular rhythm GI: COMMON NORMALS: Soft to palpation and non-tender PALPATION: Yes Soft to palpation Back/Pelvis: COMMON NORMALS: thoracic and lumbar spine normal to inspection Extremity: COMMON NORMALS: no pedal edema Neuro: SENSORIUM/ORIENTATION: Yes alert MENINGEAL SIGNS: Yes no meningeal signs Skin: COMMON NORMALS: turgor normal GENERAL SKIN EXAM: turgor normal Course ED course: 19, labs are unremarkable, we will wait the 2-hour troponin. Reassessment of patient notes some chest wall tenderness at this time, patient continues to complain of some chest discomfort after 80 mcg of fentanyl. Since tenderness is secondary to palpation suspect may be a costochondritis, however patient reports spasms.. Will give 10 mg of dexamethasone for inflammation and 60 mg orphenadrine due to spasms. Vital Signs: Vital signs: Vital Signs Temperature 98.2 F 10/10/22 23:14 Pulse Rate 60 10/11/22 00:54 Respiratory Rate 17 10/11/22 00:54 Blood Pressure 111/69 10/11/22 00:54 Pulse Oximetry 96 10/11/22 00:54 Oxygen Delivery Me thod Room Air 10/11/22 00:54 MDM - Chest Pain Medical Decision Making 42-year-old male patient comes in today for complaints of chest pain starting 1 hour prior to arrival. On exam patient appears nontoxic. Heart rates regular in the 70s. No edema is noted on extremity. Respirations are even lungs are clear to auscultation. Patient had taken 2 nitro prior to arrival to the ER. Patient had not used any aspirin. Differential diagnosis includes but not limited to angina, ACS, GERD, pleurisy, pancreatitis. Laboratory values noted no abnormalities. Repeat troponin at 2 hours showed no significant change. Patient was treated for pain with 80 mcg of fentanyl, 10 mg of dexamethasone, and 60 mg of orphenadrine. Recommended activity as tolerated continue routine medications and follow-up with primary care. Patient was stable and was released to home for follow-up. Patient reported understanding and agreed to plan. Lab Data 10/10/22 23:19 10/10/22 23:19 Radiology Impressions Chest X-Ray 10/10/22 23:12 IMPRESSION: 1. No acute cardiopulmonary process. 2. Incidental/nonacute findings are listed in the report. Laboratory Results WBC 9.1 10^3/uL (4.0-10.0) 10/10/22 23: RBC 4.32 10^6/uL (4.1-5.3) 10/10/22 23: Hgb 13.2 g/dL (11.7-16.6) 10/10/22 23: Hct 40.1 % (42.0-52.0) L 10/10/22 23: MCV 92.8 fl (80-94) 10/10/22 23: MCH 30.6 pg (28.0-34.0) 10/10/22: MCHC 32.9 g/dL (30.0-36.0) 10/10/22 23: RDW 15.4 % (12.1-15.1) H 10/10/22 23: Plt Count 227 10^3/cmm (130-400) 10/10/22 23: MPV 9.3 fL (7.4-10.4) 10/10/22 23: Neut % (Auto) 52.0 % 10/10/22 23: Lymph % (Auto) 33.9 % 10/10/22 23:19 [place] % (Auto) 9.4 % 10/10/22 23: Eos % (Auto) 3.6 % 10/10/22 23:19 Baso % (Auto) 0.9 % 10/10/22 23: Neut # (Auto) 4.72 10^3/uL (1.8-7.7) 10/10/22 23: Lymph # (Auto) 3.1 10^3/uL (0.8-4.8) 10/10/22 23:19 [place] # (Auto) 0.9 10^3/uL (0.2-0.9) 10/10/22 23: Eos # (Auto) 0.3 10^3/uL (0.0-0.8) 10/10/22 23:19 Baso # (Auto) 0.1 10^3/uL (0.0-0.1) 10/10/22 23:19 Nucleated RBC % (auto) 0 % 10/10/22 23:19 Nucleated RBCs # 0.0 /100WBC 10/10/22 23:19 Sodium 141 mmol/L (136-145) 10/10/22 23:19 Potassium 4.0 mmol/L (3.5-5.1) 10/10/22 23:19 Chloride 106 mmol/L (98-107) 10/10/22 23:19 Carbon Dioxide 25 mmol/L (22-29) 10/10/22 23:19 Anion Gap 14.0 (5-19) 10/10/22 23:19 BUN 12 mg/dL (6-20) 10/10/22 23:19 Creatinine 0.7 mg/dL (0.7-1.2) 10/10/22 23:19 GFR Calculation 124.3 mL/min (90-130) 10/10/22 23:19 Glucose 96 mg/dL (65-115) 10/10/22 23:19 Calculated Osmolality 292 mOsm/kg (285-295) 10/10/22 23:19 Calcium 9.2 mg/dL (8.5-10.5) 10/10/22 23:19 Total Bilirubin 0.2 mg/dL (0.15-1.2) 10/10/22 23:19 AST 13 U/L (0-40) 10/10/22 23:19 ALT 21 U/L (0-41) 10/10/22 23:19 Alkaline Phosphatase 99 U/L (40-130) 10/10/22 23:19 Troponin T Baseline 6 ng/L (0-15) 10/10/22 23:19 Troponin T 120 Minute 10.66 ng/L (0-15) 10/11/22 00:53 Delta Troponin T 4.66 ABS# (0-10) 10/11/22 00:53 NT-Pro-B Natriuret Pep 59 pg/mL (0-125) 10/10/22 23:19 Total Protein 6.3 g/dL (6.6-8.7) L 10/10/22 23:19 Albumin 4.0 g/dL (3.5-5.2) 10/10/22 23:19 Globulin 2.3 g/dL (1.3-4.6) 10/10/22 23:19 Lipase 48 U/L (13-60) 10/10/22 23:19 EKG Data EKG 1: EKG interpretation date: 10/10/22 EKG interpretation time: 23:23 Interpretation: EKG shows a regular sinus rhythm with a rate of [address] elevation is noted. No ectopy is noted. [facility] Nonspecific T wave abnormalities are noted. EKG 2: EKG interpretation date: 10/11/22 EKG interpretation time: 01:00 Prior EKG tracings: available for review Interpretation: EKG shows a regular rhythm in the 70s with no ST elevation or ectopy. No changes from prior exam from 2 hours ago. Discharge Plan Discharge Patient Disposition: Home Clinical Impression: Anterior chest wall pain Condition: Stable Prescriptions: No Action hydralazine 10 mg tablet 10 mg PO TID PRN (Reason: hypertension) Qty: 60 1RF Rx Instructions: BP >160/>100 atorvastatin 80 mg tablet 80 mg PO BEDTIME Qty: 90 1RF Hold Instructions: Home Medication placed on hold at Doctor's office duloxetine [Cymbalta] 60 mg capsule,delayed release(DR/EC) 60 mg PO DAILY 90 Days Qty: 90 1RF aspirin 81 mg tablet,delayed release (DR/EC) 81 mg PO DAILY 90 Days Qty: 90 3RF gabapentin 600 mg tablet 600 mg PO TID 30 Days Qty: 90 2RF isosorbide mononitrate 60 mg tablet extended release 24 hr 60 mg PO DAILY Qty: 90 1RF isosorbide mononitrate 30 mg tablet extended release 24 hr 30 mg PO QAM Qty: 90 1RF Rx Instructions: take with 60mg to equal 90mg daily pantoprazole [Protonix] 40 mg tablet,delayed release (DR/EC) 40 mg PO BID 90 Days Qty: 180 1RF losartan 25 mg tablet 25 mg PO DAILY 90 Days Qty: 90 1RF clopidogrel 75 mg tablet 75 mg PO DAILY 90 Days Qty: 90 1RF Hold Instructions: Home Medication placed on hold at Doctor's office nitroglycerin 0.4 mg tablet, sublingual 0.4 mg sublingual Q5M PRN (Reason: Chest Pain) Qty: 25 6RF Rx Instructions: do not exceed 3 doses per episode ondansetron 4 mg tablet,disintegrating 4 mg PO Q8H PRN (Reason: nausea and vomiting) Qty: 15 0RF oxycodone 5 mg tablet 5 mg PO Q4H PRN (Reason: pain) Qty: 10 0RF Zenpep 40,000-126,000- 168,000 unit capsule,delayed release(DR/EC) 1 cap PO TIDWM azithromycin 250 mg tablet See Rx Instructions .ROUTE .COMPLEX Qty: 6 0RF Rx Instructions: For 250 mg dose pack: take 500 mg today (day 1), then 250 mg for 4 days (days 2-5) Discharge Orders: Discharge ED (Routine); Ordered 10/11/22 Ordered By: Randell Longoria Referrals: Anna Roach MD [Primary Care Provider] - Patient Instructions: Chest Wall Pain (ED) Activity Restrictions/Additional Instructions: Home and rest. Drink plenty of water and fluids. Continue routine medications as directed. Follow-up with primary care for further instructions. Return to E D for new concerns. Coding Level of Care Code ED Double End Production Grinder for Clair Mathew
[2022-10-10 23:26] LABS: Basophils # 0.1 10^3/uL (0.0-0.1); Basophils % 0.9 %; Eosinophils # 0.3 10^3/uL (0.0-0.8); Eosinophils % 3.6 %; Hematocrit 40.1 % (42.0-52.0); Hemoglobin 13.2 g/dL (11.7-16.6); Lymphocytes # 3.1 10^3/uL (0.8-4.8); Lymphocytes % 33.9 %; Mean Corpuscular HGB Conc 32.9 g/dL (30.0-36.0); Mean Corpuscular Hemoglobin 30.6 pg (28.0-34.0); Mean Corpuscular Volume 92.8 fl (80-94); Mean Platelet Volume 9.3 fL (7.4-10.4); Monocytes # 0.9 10^3/uL (0.2-0.9); Monocytes % 9.4 %; Neutrophils # 4.72 10^3/uL (1.8-7.7); Nucleated Red Blood Cells % 0 %; Platelet Count 227 10^3/cmm (130-400); Red Blood Count 4.32 10^6/uL (4.1-5.3); Red Cell Distribution Width 15.4 % (12.1-15.1); White Blood Count 9.1 10^3/uL (4.0-10.0)
[2022-10-10 23:36] VITALS: BP 130/78; PULSE 95
[2022-10-10] MEDS: fentaNYL 50 mcg/mL INJ 2mL 80 MCG IVP (23:36)
[2022-10-10] MEDS: aspirin 81 mg Chew Tablet 162 MG PO (23:36)
[2022-10-10] MEDS: nitroglycerin 1 gm/inch oint Pkt 1 INCH TOPICAL (23:36)
[2022-10-11 00:02] LABS: Troponin(5th) Baseline 6 ng/L (0-15)
[2022-10-11 00:09] LABS: Lipase 48 U/L (13-60)
[2022-10-11 00:11] LABS: Alanine Aminotransferase 21 U/L (0-41); Alkaline Phosphatase 99 U/L (40-130); Aspartate Amino Transferase 13 U/L (0-40); Blood Urea Nitrogen 12 mg/dL (6-20); Calcium 9.2 mg/dL (8.5-10.5); Carbon Dioxide 25 mmol/L (22-29); Chloride 106 mmol/L (98-107); Globulin 2.3 g/dL (1.3-4.6); Glomerular Filtration Rate 124.3 mL/min (90-130); Glucose 96 mg/dL (65-115); NT Pro B Type Natriuretic Pept 59 pg/mL (0-125); Osmolality Calculated 292 mOsm/kg (285-295); Sodium 141 mmol/L (136-145); Total Bilirubin 0.2 mg/dL (0.15-1.2); Total Protein 6.3 g/dL (6.6-8.7)
[2022-10-11] MEDS: orphenadrine 30 mg/mL Inj 2 mL 60 MG IVP (00:37)
[2022-10-11] MEDS: dexamethasone 10 mg/mL INJ IVP (00:37)
[2022-10-11 00:54] VITALS: BP 111/69; PULSE 60; RESP 17; O2SAT 96
--- NOTE | 2022-10-11 01:12 | ECG_ITS ---
[facility] Test Date: 2022-10-11 Pat Name: Jovanny Rico Department: Room: Gender: Male Rn Primary Care: : 1980 Requested By: Randell Perez Order Number: [id number] Jody MD: Don Bradley M.D. Measurements Intervals [place] Rate: 61 P: 47 [place]: 169 QRS: 60 QRSD: 86 T: 57 QT: 371 QTc: 376 Interpretive Statements SINUS RHYTHM WITH SINUS ARRHYTHMIA NONSPECIFIC T-WAVE ABNORMALITY Compared to ECG 10/10/2022 23:16:59 No significant changes Electronically Signed On 10-11-2022 17:01:49 CDT by Don Bradley M.D. [email or web address]/[id number]
[2022-10-11 01:27] LABS: Troponin 5 2HR 10.66 ng/L (0-15)
[2022-10-11 01:31] LABS: Troponin 5 2HR Delta 4.66 ABS# (0-10)
[2022-10-11 01:33] VITALS: BP 104/61; PULSE 56; RESP 18; O2SAT 95
== END 2022-10-11 01:37 | disposition home or self-care (01) ==
PROVIDERS: Emergency Provider Nurse Practitioner Family; PCP Family Medicine
DX: R07.89 Other chest pain (principal); I25.10 Atherosclerotic heart disease of native coronary artery without angina pectoris; I11.0 Hypertensive heart disease with heart failure; E78.5 Hyperlipidemia, unspecified; J44.9 Chronic obstructive pulmonary disease, unspecified; F17.210 Nicotine dependence, cigarettes, uncomplicated; Z79.82 Long term (current) use of aspirin; Z79.899 Other long term (current) drug therapy; Z95.5 Presence of coronary angioplasty implant and graft
CPT/HCPCS: 71045; 80053; 83690; 83880; 84484; 85025; 93005; 96374; 96375; 99285; J1100; J2360; J3010

== ENCOUNTER 2022-10-19 10:02 | Outpatient (CLI) | payer MEDICAID, SELFPAY ==
--- NOTE | 2022-10-19 10:09 | MM_ITS ---
WS: [id number] BILATERAL 3D TOMOSYNTHESIS DIGITAL DIAGNOSTIC MAMMOGRAPHY WITH CAD CLINICAL INFORMATION: LEFT BR LUMP HISTORY: Diagnostic mammogram. LEFT breast lump COMPARISON: None. TECHNIQUE: Bilateral CC, ML, and MLO views. FINDINGS: Scattered fibroglandular densities bilaterally. Palpable marker 12:00 position LEFT breast. No underl luis manuel mammographic normality. Ultrasound is pending. RIGHT breast is normal. ULTRASOUND BREAST LEFT TECHNIQUE: Ultrasound left breast focused area of concern. CLINICAL INFORMATION: LEFT BR LUMP FINDINGS: Ultrasound LEFT breast 11:00 position 3 cm from the nipple in the area of concern. Normal underlying subcutaneous soft tissues. No cystic or solid lesions in the area of concern. No fluid collections. N o suspicious findings to target for biopsy. No suspicious findings today. If reported lump increases in size, or persistent clinical or patient c oncern, recommend return for additional evaluation MM/[place] [id number] IMPRESSION: BI-RADS: 2-Benign FOLLOW UP: See Report
== END 2022-10-19 10:03 | disposition home or self-care (01) ==
PROVIDERS: PCP Family Medicine; Visit Provider Emergency Medicine
DX: N63.22 Unspecified lump in the left breast, upper inner quadrant (principal)
CPT/HCPCS: 76642; 77062; G0279

== ENCOUNTER 2022-10-25 20:02 | Emergency (ER) | payer MEDICAID, SELFPAY ==
[2022-10-25 20:08] VITALS: BMI 24.4
[2022-10-25 20:10] VITALS: BP 106/71; PULSE 93; RESP 17; TEMP 36.6; O2SAT 95
--- NOTE | 2022-10-25 20:16 | ECG_ITS ---
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 Measurements Intervals [place] Rate: 87 P: 43 TN: 161 QRS: 60 QRSD: 90 T: 58 QT: 340 QTc: 409 Interpretive Statements SINUS RHYTHM POSSIBLE LEFT ATRIAL ENLARGEMENT [-0.1mV P-WAVE IN V1/V2] NONSPECIFIC T-WAVE ABNORMALITY Compared to ECG 10/11/2022 00:52:53 Sinus arrhythmia no longer present T-wave abnormality still present Electronically Signed On 10-26-2022 14:00:06 CDT by Spenser Carrillo M.D. [id number]
--- NOTE | 2022-10-25 20:16 | XRR_ITS ---
PROCEDURE INFORMATION: Exam: XR Chest Exam date and time: 10/25/2022 8:21 PM Age: 42 years old Clinical indication: Pain; Chest pressure; Prior surgery; Surgery date: 6+ months; Surgery type: Stent; Additional info: Chest pain TECHNIQUE: Imaging protocol: Radiologic exam of the chest. Views: 1 view. COMPARISON: CR (CHEST, ) 10/10/2022 11:33 PM FINDINGS: Lungs: Unremarkable. No consolidation. Minimal basilar scarring. Pleural spaces: Unremarkable. No pleural effusion. No pneumothorax. Heart/Mediastinum: Small hiatal hernia, unchanged from prior exam. Cardiac size appears within normal limits with today's exam. Bones/joints: Slight thoracic scoliosis. XR/XR chest 1V portable [id number] IMPRESSION: No acute cardiopulmonary abnormality.
[2022-10-25 20:47] LABS: Basophils # 0.1 10^3/uL (0.0-0.1); Basophils % 0.7 %; Eosinophils # 0.3 10^3/uL (0.0-0.8); Eosinophils % 3.4 %; Hematocrit 43.7 % (42.0-52.0); Hemoglobin 14.3 g/dL (11.7-16.6); Lymphocytes # 2.7 10^3/uL (0.8-4.8); Lymphocytes % 26.1 %; Mean Corpuscular HGB Conc 32.7 g/dL (30.0-36.0); Mean Corpuscular Hemoglobin 30.2 pg (28.0-34.0); Mean Corpuscular Volume 92.2 fl (80-94); Mean Platelet Volume 9.5 fL (7.4-10.4); Monocytes % 9.7 %; Neutrophils # 6.06 10^3/uL (1.8-7.7); Neutrophils % 59.7 %; Nucleated Red Blood Cells % 0 %; Platelet Count 262 10^3/cmm (130-400); Red Blood Count 4.74 10^6/uL (4.1-5.3); Red Cell Distribution Width 15.5 % (12.1-15.1); White Blood Count 10.1 10^3/uL (4.0-10.0)
--- NOTE | 2022-10-25 20:52 | ED_ITS ---
HPI - Chest Pain General: Chief Complaint: Chest Pain Stated Complaint: chest pain Time Seen by Provider: 10/25/22 20:16 History of Present Illness: Presents to the ER with complaints of chest pain. Pain is in the patient's left chest rating up into his jaw left arm and back. Patient had this pain multiple times before it is worsened with exertion and eases up with rest. Patient has had 1 stent approximately a year ago. Patient is on Plavix daily. Last time patient was worked up for this chest pain is approximately 2 weeks ago and everything was negative and he was discharged home. Patient denies any nausea vomiting diaphoresis or shortness of breath at this time. Review of Systems General: Reports: 10 or more systems reviewed and unremarkable except in HPI and below PFSH ED PFSH: Medical History Aorta aneurysm Atherosclerosis of coronary artery COPD (chronic obstructive pulmonary disease) Depression Dyslipidemia Gastroesophageal reflux disease Gross hematuria HTN (hypertension) Presence of stent in LAD coronary artery Urolithiasis Surgical History H/O colonoscopy with polypectomy History of cholecystectomy Hx of heart artery stent S/P ureteral stent placement Status post laser lithotripsy of ureteral calculus Family History Father Heart disease Alcoholic Lung disease Mother Healthy adult Social History Smoking and tobacco status: current every day smoker cigarettes Packs smoked per day: 0.5 Years cigarettes smoked: 20 Alcohol intake: current Alcohol intake frequency: holidays/special occasions only Substance/Drug Use: never Marital status: Current occupational status: unemployed Physical Exam Const: COMMON NORMALS: no acute distress, average body habitus, patient oriented x3, no limitations, healthy appearing, alert and well nourished HENMT: COMMON NORMALS: normocephalic, atraumatic, hearing grossly normal bilaterally, external ears normal, Normal external nose present and moist oral mucous membranes HEAD & SCALP: normocephalic and atraumatic NOSE: Normal external nose present EXTERNAL EAR: Yes external ears normal Neck/C-Spine: COMMON NORMALS: full ROM, no lymphadenopathy, supple, no meningeal signs, no JVD and Thyroid normal THYROID: Thyroid normal Chest: COMMONS NORMALS: normal inspection of the chest and normal palpation of entire chest wall Resp: COMMON NORMALS: normal respiratory effort, No retractions, No use of accessory muscles and clear to auscultation bilaterally AUSCULTATION: clear to auscultation bilaterally Cardio: COMMON NORMALS: no JVD, regular rate, regular rhythm, S1 normal heart sound present, S2 normal heart sound present, No gallops present (Cardio), No clicks present (Cardio), No murmurs present (Cardio) and No rub (Cardio) RATE: regular rate RHYTHM: regular rhythm HEART SOUNDS: S1 normal heart sound present and S2 normal heart sound present GI: COMMON NORMALS: Normal to inspection, nondistended, normoactive bowel sounds present, Soft to palpation, non-tender, No hepatosplenomegaly present and no masses PALPATION: Yes Soft to palpation and Yes No hepatosplenomegaly present : COMMON NORMALS: Yes no CVA tenderness BLADDER/KIDNEY EXAM: Yes no CVA tenderness Back/Pelvis: COMMON NORMALS: no CVA tenderness Neuro: COMMON NORMALS: patient oriented x3 SENSORIUM/ORIENTATION: Yes alert MENINGEAL SIGNS: Yes no meningeal signs Course Vital Signs: Vital signs: Vital Signs Temperature 97.9 F 10/25/22 20:10 Pulse Rate 65 10/25/22 22:16 Respiratory Rate 20 H 10/25/22 22:16 Blood Pressure 142/94 10/25/22 22:16 Pulse Oximetry 96 10/25/22 22:16 Oxygen Delivery Me thod Nasal Cannula 10/25/22 21:56 Oxygen Flow Rate 1 10/25/22 21:56 MDM - Chest Pain Medical Decision Making Zentz to the ER with chest pain. Upon review of literature patient has presented with this chest pain multiple times is always found to be negative. Patient was evaluated by physical exam and the appropriate imaging x-ray and lab work scenario. All of which essentially came back benign. We are still waiting for the second troponin to come back but we anticipate will be negative. If so patient be discharged home to follow-up with his PCP on an outpatient basis for noncardiac chest pain. Differential Diagnosis Unlikely acute massive pulmonary embolism, acute respiratory failure, acute myocardial infarction, cardiac arrest or sudden cardiac Medical Records I reviewed the patient's medical records. Lab Data I reviewed the patient's lab results. 10/25/22 20:34 07/26/23 20:34 Radiology Impressions Chest X-Ray 10/25/22 20:16 IMPRESSION: No acute cardiopulmonary abnormality. Laboratory Results WBC 10.1 10^3/uL (4.0-10.0) H 10/25/22 20:34 RBC 4.74 10^6/uL (4.1-5.3) 10/25/22 20:34 Hgb 14.3 g/dL (11.7-16.6) 10/25/22 20:34 Hct 43.7 % (42.0-52.0) 10/25/22 20:34 MCV 92.2 fl (80-94) 10/25/22 20:34 MCH 30.2 pg (28.0-34.0) 10/25/22 20:34 MCHC 32.7 g/dL (30.0-36.0) 10/25/22 20:34 RDW 15.5 % (12.1-15.1) H 10/25/22 20:34 Plt Count 262 10^3/cmm (130-400) 10/25/22 20:34 MPV 9.5 fL (7.4-10.4) 10/25/22 20:34 Neut % (Auto) 59.7 % 10/25/22 20:34 Lymph % (Auto) 26.1 % 10/25/22 20:34 [place] % (Auto) 9.7 % 10/25/22 20:34 Eos % (Auto) 3.4 % 10/25/22 20:34 Baso % (Auto) 0.7 % 10/25/22 20:34 Neut # (Auto) 6.06 10^3/uL (1.8-7.7) 10/25/22 20:34 Lymph # (Auto) 2.7 10^3/uL (0.8-4.8) 10/25/22 20:34 [place] # (Auto) 1.0 10^3/uL (0.2-0.9) H 10/25/22 20:34 Eos # (Auto) 0.3 10^3/uL (0.0-0.8) 10/25/22 20:34 Baso # (Auto) 0.1 10^3/uL (0.0-0.1) 10/25/22 20:34 Nucleated RBC % (auto) 0 % 10/25/22 20:34 Nucleated RBCs # 0.0 /100WBC 10/25/22 20:34 Sodium 142 mmol/L (136-145) 10/25/22 20:34 Potassium 4.1 mmol/L (3.5-5.1) 10/25/22 20:34 Chloride 105 mmol/L (98-107) 10/25/22 20:34 Carbon Dioxide 26 mmol/L (22-29) 10/25/22 20:34 Anion Gap 15.1 (5-19) 10/25/22 20:34 BUN 12 mg/dL (6-20) 10/25/22 20:34 Creatinine 0.7 mg/dL (0.7-1.2) 10/25/22 20:34 GFR Calculation 124.3 mL/min (90-130) 10/25/22 20:34 Glucose 96 mg/dL (65-115) 10/25/22 20:34 Calculated Osmolality 294 mOsm/kg (285-295) 10/25/22 20:34 Calcium 9.2 mg/dL (8.5-10.5) 10/25/22 20:34 Total Bilirubin 0.2 mg/dL (0.15-1.2) 10/25/22 20:34 AST 14 U/L (0-40) 10/25/22 20:34 ALT 20 U/L (0-41) 10/25/22 20:34 Alkaline Phosphatase 96 U/L (40-130) 10/25/22 20:34 Troponin T Baseline 8 ng/L (0-15) 10/25/22 20:34 Total Protein 6.1 g/dL (6.6-8.7) L 10/25/22 20:34 Albumin 4.2 g/dL (3.5-5.2) 10/25/22 20:34 Globulin 1.9 g/dL (1.3-4.6) 10/25/22 20:34 EKG Data EKG 1: I personally reviewed and interpreted this EKG as follows: EKG interpretation date: 10/25/22 EKG interpretation time: 20:42 Prior EKG tracings: not available for review Interpretation: EKG showed normal sinus rhythm, ventricular rate 87 bpm, FL interval 161, QRS 90, QTc of 384, possible left atrial lodgment, nonspecific T wave abnormality. Discharge Plan Discharge Patient Disposition: Home Clinical Impression: Chest pain Qualifiers: Chest pain type: unspecified Qualified Code(s): R07.9 - Chest pain, unspecified Condition: Stable Prescriptions: No Action hydralazine 10 mg tablet 10 mg PO TID PRN (Reason: hypertension) Qty: 60 1RF Rx Instructions: BP >160/>100 atorvastatin 80 mg tablet 80 mg PO BEDTIME Qty: 90 1RF Hold Instructions: Home Medication placed on hold at Doctor's office duloxetine [Cymbalta] 60 mg capsule,delayed release(DR/EC) 60 mg PO DAILY 90 Days Qty: 90 1RF aspirin 81 mg tablet,delayed release (DR/EC) 81 mg PO DAILY 90 Days Qty: 90 3RF gabapentin 600 mg tablet 600 mg PO TID 30 Days Qty: 90 2RF isosorbide mononitrate 60 mg tablet extended release 24 hr 60 mg PO DAILY Qty: 90 1RF isosorbide mononitrate 30 mg tablet extended release 24 hr 30 mg PO QAM Qty: 90 1RF Rx Instructions: take with 60mg to equal 90mg daily pantoprazole [Protonix] 40 mg tablet,delayed release (DR/EC) 40 mg PO BID 90 Days Qty: 180 1RF losartan 25 mg tablet 25 mg PO DAILY 90 Days Qty: 90 1RF clopidogrel 75 mg tablet 75 mg PO DAILY 90 Days Qty: 90 1RF Hold Instructions: Home Medication placed on hold at Doctor's office nitroglycerin 0.4 mg tablet, sublingual 0.4 mg sublingual Q5M PRN (Reason: Chest Pain) Qty: 25 6RF Rx Instructions: do not exceed 3 doses per episode ondansetron 4 mg tablet,disintegrating 4 mg PO Q8H PRN (Reason: nausea and vomiting) Qty: 15 0RF oxycodone 5 mg tablet 5 mg PO Q4H PRN (Reason: pain) Qty: 10 0RF Zenpep 40,000-126,000- 168,000 unit capsule,delayed release(DR/EC) 1 cap PO TIDWM azithromycin 250 mg tablet See Rx Instructions .ROUTE .COMPLEX Qty: 6 0RF Rx Instructions: For 250 mg dose pack: take 500 mg today (day 1), then 250 mg for 4 days (days 2-5) Discharge Orders: Discharge ED (Routine); Ordered 10/25/22 Ordered By: Reji Irby Referrals: Anna Roach MD [Primary Care Provider] - 1 week Patient Instructions: Chest Pain (ED) Activity Restrictions/Additional Instructions: Chest pain work-up was essentially negative. His very low likelihood that this is cardiac in nature. Please follow-up with your family practice doctor next 1 week and/or your cryptography teacher for further evaluation testing. Coding Level of Care Code ED Bridge Mechanic for Clair Mathew
[2022-10-25 21:05] LABS: Alanine Aminotransferase 20 U/L (0-41); Albumin Level 4.2 g/dL (3.5-5.2); Alkaline Phosphatase 96 U/L (40-130); Anion Gap 15.1 (5-19); Aspartate Amino Transferase 14 U/L (0-40); Blood Urea Nitrogen 12 mg/dL (6-20); Calcium 9.2 mg/dL (8.5-10.5); Carbon Dioxide 26 mmol/L (22-29); Chloride 105 mmol/L (98-107); Globulin 1.9 g/dL (1.3-4.6); Glomerular Filtration Rate 124.3 mL/min (90-130); Glucose 96 mg/dL (65-115); Osmolality Calculated 294 mOsm/kg (285-295); Potassium 4.1 mmol/L (3.5-5.1); Sodium 142 mmol/L (136-145); Total Bilirubin 0.2 mg/dL (0.15-1.2); Total Protein 6.1 g/dL (6.6-8.7)
[2022-10-25 21:10] LABS: Troponin(5th) Baseline 8 ng/L (0-15)
[2022-10-25] MEDS: ketorolac 30 mg/mL INJ IVP (21:18)
[2022-10-25 21:56] VITALS: BP 111/67; PULSE 73; RESP 20; O2SAT 95
[2022-10-25 22:16] VITALS: BP 142/94; PULSE 65; RESP 20; O2SAT 96
[2022-10-25 22:54] LABS: Troponin 5 2HR 8.22 ng/L (0-15)
[2022-10-25 23:02] VITALS: BP 111/81; PULSE 73; RESP 20; O2SAT 98
[2022-10-25 23:05] LABS: Troponin 5 2HR Delta 0.22 ABS# (0-10)
== END 2022-10-25 23:03 | disposition home or self-care (01) ==
PROVIDERS: Emergency Provider Emergency Medicine; PCP Family Medicine
DX: R07.9 Chest pain, unspecified (principal); I25.10 Atherosclerotic heart disease of native coronary artery without angina pectoris; J44.9 Chronic obstructive pulmonary disease, unspecified; E78.5 Hyperlipidemia, unspecified; I10 Essential (primary) hypertension; F17.210 Nicotine dependence, cigarettes, uncomplicated; Z79.899 Other long term (current) drug therapy; Z79.82 Long term (current) use of aspirin; Z79.02 Long term (current) use of antithrombotics/antiplatelets; Z95.5 Presence of coronary angioplasty implant and graft
CPT/HCPCS: 36415; 71045; 80053; 84484; 85025; 93005; 96374; 99285; J1885

== ENCOUNTER 2022-10-28 16:50 | Inpatient (IN) | payer MEDICAID, SELFPAY ==
[2022-10-28] VITALS (27 sets, daily range): BP systolic 83–151; BP diastolic 50–95; PULSE 52–107; RESP 14–29; TEMP 36.5–37.1; O2SAT 90–98
--- NOTE | 2022-10-28 16:53 | W.ED.CHESTPA ---
HPI - Chest Pain General: Chief Complaint: Chest Pain Stated Complaint: chest pain Time Seen by Provider: 10/28/22 16:53 History of Present Illness: Mr. Rico is a 42-year-old gentleman presented to the emergency department for chest pain. He notes intermittent episodes over the past few days however has had worsening pain over the past hour. Onset at rest. Left anterior chest with radiation to the jaw and left arm associated with clamminess and mild nausea and shortness of breath. Moderate intensity. No other specific changes in health, exacerbating, or alleviating factors identified. Onset (ago): day(s) Severity: moderate Associated symptoms: Reports diaphoresis, dyspnea and nausea Review of Systems General: Reports: 10 or more systems reviewed and unremarkable except in HPI and below Const: Reports: diaphoresis Resp: Reports: dyspnea GI: Reports: nausea PFSH ED PFSH: Medical History (Updated 11/06/22 @ 13:57 by Anna Roach MD) Aorta aneurysm Atherosclerosis of coronary artery Eli esophagus Central apnea Cervical radiculopathy Chest pain Colon polyp COPD (chronic obstructive pulmonary disease) Depression Dilated aortic root Dyslipidemia LAURA (generalized anxiety disorder) Gastritis and duodenitis Gastroesophageal reflux disease GERD (gastroesophageal reflux disease) Gross hematuria HTN (hypertension) Presence of stent in LAD coronary artery Staghorn calculus Tobacco use Unstable angina Urolithiasis Surgical History H/O colonoscopy with polypectomy History of cholecystectomy Hx of heart artery stent S/P ureteral stent placement Status post laser lithotripsy of ureteral calculus Family History Father Heart disease Alcoholic Lung disease Mother Healthy adult Social History Smoking and tobacco status: current every day smoker cigarettes Packs smoked per day: 0.5 Years cigarettes smoked: 20 Alcohol intake: current Alcohol intake frequency: holidays/special occasions only Substance/Drug Use: never Marital status: Current occupational status: unemployed Physical Exam Const: COMMON NORMALS: alert GENERAL APPEARANCE: cooperative and well developed HENMT: COMMON NORMALS: normocephalic and atraumatic HEAD & SCALP: normocephalic and atraumatic THROAT: posterior oropharynx normal Eye: COMMON NORMALS: conjunctivae normal CONJUNCTIVA: Yes conjunctivae normal SCLERA: sclerae normal Neck/C-Spine: COMMON NORMALS: supple GENERAL: Yes trachea midline Resp: COMMON NORMALS: normal respiratory effort EFFORT & INSPECTION: Yes able to speak in complete sentences Cardio: COMMON NORMALS: regular rate and regular rhythm RATE: regular rate RHYTHM: regular rhythm GI: COMMON NORMALS: Soft to palpation PALPATION: Yes Soft to palpation and No Tenderness to palpation present (GI) PERCUSSION: normal to percussion Extremity: GENERAL: Yes normal exam except as noted and No edema Neuro: COMMON NORMALS: moves all extremities SENSORIUM/ORIENTATION: Yes alert and No Orientation impaired Psych: COMMON NORMALS: mental status grossly normal and Normal thought process present THOUGHT PROCESS: Normal thought process present Course Vital Signs: Vital signs: Vital Signs Temperature 98.7 F 10/30/22 12:00 Pulse Rate 90 10/30/22 14:28 Respiratory Rate 17 10/30/22 14:28 Blood Pressure 109/69 10/30/22 14:28 Pulse Oximetry 92 10/30/22 14:28 Oxygen Delivery Me thod Room Air 10/30/22 12:00 MDM - Chest Pain Medical Decision Making 42-year-old gentleman presented with worsening chest pain from baseline. Patient does have cardiac history. Exam as above. Nontoxic. EKG demonstrates sinus rhythm with nonspecific ST segment abnormalities, no STEMI. No significant hematologic or metabolic abnormality to explain symptoms. Negative range 2-hour delta troponin. Chest x-ray with no lobar consolidation or pneumothorax. Discussed case with cardiology who, given concern for unstable angina with known CAD agrees with admission. The results of ED evaluation were discussed with the patient including plan for admission due to requirement for level of care not available if discharged to prevent significant worsening/deterioration. Patient agreeable with plan. Discussed with hospitalist service who was agreeable to admit patient. Treated during ED course with analgesia, antiemetic, aspirin, Lovenox. Medical Records I reviewed the patient's medical records. Lab Data I reviewed the patient's lab results. 10/28/22 17:26 10/28/22 17:26 Radiology Impressions Chest X-Ray 10/28/22 17:09 IMPRESSION: No acute findings. Unchanged exam. Laboratory Results WBC 9.3 10^3/uL (4.0-10.0) 10/28/22 17:26 RBC 4.70 10^6/uL (4.1-5.3) 10/28/22 17: Hgb 14.0 g/dL (11.7-16.6) 10/28/22 17: Hct 43.3 % (42.0-52.0) 10/28/22 17: MCV 92.1 fl (80-94) 10/28/22 17: MCH 29.8 pg (28.0-34.0) 10/28/22 17: MCHC 32.3 g/dL (30.0-36.0) 10/28/22 17: RDW 15.4 % (12.1-15.1) H 10/28/22 17: Plt Count 261 10^3/cmm (130-400) 10/28/22 17: MPV 9.3 fL (7.4-10.4) 10/28/22 17: Neut % (Auto) 64.2 % 10/28/22 17: Lymph % (Auto) 22.5 % 10/28/22 17: [place] % (Auto) 9.9 % 10/28/22 17: Eos % (Auto) 2.3 % 10/28/22 17: Baso % (Auto) 0.8 % 10/28/22: Neut # (Auto) 5.97 10^3/uL (1.8-7.7) 10/28/22 17: Lymph # (Auto) 2.1 10^3/uL (0.8-4.8) 10/28/22 17: [place] # (Auto) 0.9 10^3/uL (0.2-0.9) 10/28/22 17: Eos # (Auto) 0.2 10^3/uL (0.0-0.8) 10/28/22: Baso # (Auto) 0.1 10^3/uL (0.0-0.1) 10/28/22 17: Nucleated RBC % (auto) 0 % 10/28/22: Nucleated RBCs # 0.0 /100WBC 10/28/22 17: Sodium 139 mmol/L (136-145) 10/28/22 17: Potassium 3.7 mmol/L (3.5-5.1) 10/28/22 17:26 Chloride 101 mmol/L (98-107) 10/28/22 17:26 Carbon Dioxide 24 mmol/L (22-29) 10/28/22 17:26 Anion Gap 17.7 (5-19) 10/28/22 17:26 BUN 14 mg/dL (6-20) 10/28/22 17:26 Creatinine 0.8 mg/dL (0.7-1.2) 10/28/22 17:26 GFR Calculation 106.5 mL/min (90-130) 10/28/22 17:26 Glucose 139 mg/dL (65-115) H 10/28/22 17:26 Calculated Osmolality 291 mOsm/kg (285-295) 10/28/22 17:26 Calcium 9.3 mg/dL (8.5-10.5) 10/28/22 17:26 Total Bilirubin 0.7 mg/dL (0.15-1.2) 10/28/22 17:26 AST 21 U/L (0-40) 10/28/22 17:26 ALT 22 U/L (0-41) 10/28/22 17:26 Alkaline Phosphatase 103 U/L (40-130) 10/28/22 17:26 Troponin T Baseline 11 ng/L (0-15) 10/28/22 17:26 Troponin T 120 Minute 8.04 ng/L (0-15) 10/28/22 19:21 Delta Troponin T -2.96 ABS# (0-10) L 10/28/22 19:21 Troponin T Hi Sens 6Hr 9.10 ng/L (0-15) 10/28/22 23:14 Troponin T Hi Sens 6Hr Delta -1.9 ng/L (0-12) L 10/28/22 23:14 NT-Pro-B Natriuret Pep 36 pg/mL (0-125) 10/28/22 17:26 Total Protein 6.4 g/dL (6.6-8.7) L 10/28/22 17:26 Albumin 4.3 g/dL (3.5-5.2) 10/28/22 17:26 Globulin 2.1 g/dL (1.3-4.6) 10/28/22 17:26 Lipase 20 U/L (13-60) 10/28/22 17:26 Discharge Plan Discharge Patient Disposition: Admitted As Inpatient Admit Provider: Pernell Rose Clinical Impression: Unstable angina Condition: Stable Discharge Diet: Cardiac Discharge Activity: Increase activity as tolerated Coding Level of Care Code ED Commercial Light Fixture Assembler for Clair Mathew
--- NOTE | 2022-10-28 17:09 | XRR_ITS ---
PROCEDURE INFORMATION: Exam: XR Chest Exam date and time: 10/28/2022 5:28 PM Age: 42 years old Clinical indication: Pain; Chest pressure; Additional info: Cp TECHNIQUE: Imaging protocol: Radiologic exam of the chest. Views: 1 view. COMPARISON: CR (CHEST, ) 10/25/2022 8:21 PM FINDINGS: Lungs: Unremarkable. No consolidation. Pleural spaces: Unremarkable. No pleural effusion. No pneumothorax. Heart/Mediastinum: Unremarkable. No cardiomegaly. Bones/joints: No acute abnormality. XR/XR chest 1V portable [id number] IMPRESSION: No acute findings. Unchanged exam.
--- NOTE | 2022-10-28 17:09 | ECG_ITS ---
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 Measurements Intervals [place] Rate: 83 P: 33 IN: 147 QRS: 53 QRSD: 97 T: 65 QT: 346 QTc: 407 Interpretive Statements SINUS RHYTHM MODERATE T-WAVE ABNORMALITY, CONSIDER ANTERIOR ISCHEMIA [-0.1+ mV T-WAVE IN V3/V4] Compared to ECG 10/25/2022 20:42:18 Possible ischemia now present T-wave abnormality still present Electronically Signed On 10-30-2022 8:33:40 CDT by Spenser Carrillo M.D. [id number]
[2022-10-28] MEDS: aspirin 81 mg Chew Tablet 324 MG PO (17:35)
[2022-10-28] MEDS: morphine 4 mg/mL SDV 1 mL IVP (17:35)
[2022-10-28] MEDS: ondansetron 2 mg/ML SDV 2 mL 4 MG IVP (17:38)
[2022-10-28 17:39] LABS: Basophils # 0.1 10^3/uL (0.0-0.1); Basophils % 0.8 %; Eosinophils # 0.2 10^3/uL (0.0-0.8); Eosinophils % 2.3 %; Hematocrit 43.3 % (42.0-52.0); Lymphocytes # 2.1 10^3/uL (0.8-4.8); Lymphocytes % 22.5 %; Mean Corpuscular HGB Conc 32.3 g/dL (30.0-36.0); Mean Corpuscular Hemoglobin 29.8 pg (28.0-34.0); Mean Corpuscular Volume 92.1 fl (80-94); Mean Platelet Volume 9.3 fL (7.4-10.4); Monocytes # 0.9 10^3/uL (0.2-0.9); Monocytes % 9.9 %; Neutrophils # 5.97 10^3/uL (1.8-7.7); Neutrophils % 64.2 %; Nucleated Red Blood Cells % 0 %; Platelet Count 261 10^3/cmm (130-400); Red Cell Distribution Width 15.4 % (12.1-15.1); White Blood Count 9.3 10^3/uL (4.0-10.0)
--- NOTE | 2022-10-28 17:45 | PC.NURSE ---
pt placed on continuous nibp, spo2, and cm
[2022-10-28 18:12] LABS: Troponin(5th) Baseline 11 ng/L (0-15)
[2022-10-28 18:22] LABS: Alanine Aminotransferase 22 U/L (0-41); Albumin Level 4.3 g/dL (3.5-5.2); Alkaline Phosphatase 103 U/L (40-130); Anion Gap 17.7 (5-19); Aspartate Amino Transferase 21 U/L (0-40); Blood Urea Nitrogen 14 mg/dL (6-20); Calcium 9.3 mg/dL (8.5-10.5); Carbon Dioxide 24 mmol/L (22-29); Chloride 101 mmol/L (98-107); Globulin 2.1 g/dL (1.3-4.6); Glomerular Filtration Rate 106.5 mL/min (90-130); Glucose 139 mg/dL (65-115); Lipase 20 U/L (13-60); NT Pro B Type Natriuretic Pept 36 pg/mL (0-125); Osmolality Calculated 291 mOsm/kg (285-295); Potassium 3.7 mmol/L (3.5-5.1); Sodium 139 mmol/L (136-145); Total Bilirubin 0.7 mg/dL (0.15-1.2); Total Protein 6.4 g/dL (6.6-8.7)
[2022-10-28 19:49] LABS: Troponin 5 2HR 8.04 ng/L (0-15)
[2022-10-28 19:54] LABS: Troponin 5 2HR Delta -2.96 ABS# (0-10)
--- NOTE | 2022-10-28 20:54 | PM.HP ---
Providers/Chief Complaint Admitting Physician: Pernell Rose MD Primary Care Provider: Anna Roach MD Chief Complaint: chest pain History of Present Illness Jovanny Rico is a 42 year old male with a past medical history significant for coronary artery disease with history of prior myocardial infarction, aortic aneurysm, COPD, hypertension, and tobacco use disorder who presents to the emergency department with chest pain. He describes the pain as left sided and substernal. He rates it 9 out of 10. Reports some mild radiation towards left axilla area. Reports he took nitroglycerin which sometimes helps but did not this time. Reports exertion worsens the pain. Reports multiple recent similar episodes which seem to be getting more frequent and severe. He reports pain may come on at rest or while exerting himself. Patient has a known history of coronary artery disease. His cardiac cath in 04/2021 showed: Diagnostic Findings ? * Left Main has no disease. ? * Circumflex has no disease. ? * Right Coronary Artery has no disease. ? * Mid Left Anterior Descending: significant? 80% stenosis, KELLEE: 3 flow. ? * Mid Left Anterior Descending: mild? 40% stenosis, KELLEE: 3 flow. ? * Coronary angiography shows left dominance. He received a stent to the mid LAD at that time. He endorses compliance with his medications. He had a stress test in October of 2021 as well as multiple ED visits for chest pain. Reports he continues to smoke cigarettes. He states he is smoking about 3 per day and is actively trying to quit smoking. Review of Systems Narrative: A complete review of systems was obtained and is negative except as stated in HPI. Medications/Allergies Home Medications Medication Instructions Recorded Confirmed Last Taken Type huogey-jaetgbvz-fbmkdty 1 cap PO TIDWM 11/26/21 10/28/22 11/25/21 History 40,000-126,000-168,000 unit capsule, delay rel (Zenpep) hydralazine 10 mg tablet 10 mg PO TID PRN hypertension #60 04/11/22 10/28/22 Unknown Rx tabs aspirin 81 mg tablet,delayed 81 mg PO DAILY 90 days #90 tabs 06/07/22 10/28/22 Unknown Rx release atorvastatin 80 mg tablet 80 mg PO BEDTIME #90 tabs 06/07/22 10/28/22 Unknown Rx clopidogrel 75 mg tablet 75 mg PO DAILY 90 days #90 tabs 06/07/22 10/28/22 Unknown Rx duloxetine 60 mg capsule,delayed 60 mg PO DAILY 90 days #90 caps 06/07/22 10/28/22 Unknown Rx release (Cymbalta) isosorbide mononitrate 30 mg 30 mg PO QAM #90 tabs 06/07/22 10/28/22 Unknown Rx tablet,extended release 24 hr isosorbide mononitrate 60 mg 60 mg PO DAILY #90 tabs 06/07/22 10/28/22 Unknown Rx tablet,extended release 24 hr losartan 25 mg tablet 25 mg PO DAILY 90 days #90 tabs 06/07/22 10/28/22 Unknown Rx nitroglycerin 0.4 mg sublingual 0.4 mg sublingual Q5M PRN Chest 06/07/22 10/28/22 Unknown Rx tablet Pain #25 tabs pantoprazole 40 mg tablet,delayed 40 mg PO BID 90 days #180 tabs 06/07/22 10/28/22 Unknown Rx release (Protonix) ondansetron 4 mg disintegrating 4 mg PO Q8H PRN nausea and 08/29/22 10/28/22 Unknown Rx tablet vomiting #15 tabs gabapentin 600 mg tablet 600 mg PO TID PRN Pain 10/28/22 10/28/22 Unknown History Allergies Allergy/AdvReac Type Severity Reaction Status Date / Time No Known Allergies Allergy Verified 10/28/22 17:05 PFSH Acute PFSH: Medical History (Updated 10/28/22 @ 23:06 by Pernell Rose MD) Aorta aneurysm Atherosclerosis of coronary artery Central apnea Cervical radiculopathy Colon polyp COPD (chronic obstructive pulmonary disease) Depression Dyslipidemia Gastritis and duodenitis Gastroesophageal reflux disease Gross hematuria HTN (hypertension) Presence of stent in LAD coronary artery Staghorn calculus Unstable angina Urolithiasis Surgical History H/O colonoscopy with polypectomy History of cholecystectomy Hx of heart artery stent S/P ureteral stent placement Status post laser lithotripsy of ureteral calculus Family History Father Heart disease Alcoholic Lung disease Mother Healthy adult Social History Smoking and tobacco status: current every day smoker cigarettes Packs smoked per day: 0.5 Years cigarettes smoked: 20 Alcohol intake: current Alcohol intake frequency: holidays/special occasions only Substance/Drug Use: never Marital status: Current occupational status: unemployed Vitals/I&O/Wt Last Vital Signs Temp 98.3 F 10/28/22 17:20 Pulse 65 10/28/22 20:22 Resp 16 10/28/22 20:22 BP 125/91 10/28/22 20:22 Pulse Ox 95 10/28/22 20:22 O2 Del Method Room Air 10/28/22 20:22 Weight last 48 hrs Weight 79.379 kg Physical Exam Narrative: General: Patient is awake. Lying in bed. Head:? Normocephalic. Atraumatic. EOM intact. Neck: No JVD. Cardiovascular: RRR. No gallops. No murmurs. No peripheral edema. Mild chest wall tenderness to palpation. Lungs: Clear to auscultation, no use of accessory muscles, no crackles or wheezes. Skin: No jaundice. No rashes. Abdomen: Normal bowel sounds, abdomen soft and nontender. Genito Urinary: Genital exam not performed since complaints not related. Rectal: Rectal exam not performed since no symptoms indicated blood loss. Extremities: No cyanosis or clubbing. Musculoskeletal: No swollen or erythematous joints. Neurological: Moves all 4 extremities. No myoclonus. Data 10/28/22 17:26 10/28/22 17:26 A&P Assessment and plan (1) Chest pain: With history of CAD s/p mid LAD stent EKG negative for acute ischemic changes Trend troponin Telemetry monitoring Continue DAPT with aspirin and Plavix Continue high intensity statin Continue Imdur Status post Lovenox in ED NPO after midnight Cardiology consulted by ED provider, appreciate recommendations Qualifiers: Chest pain type: unspecified Qualified Code(s): R07.9 - Chest pain, unspecified (2) COPD (chronic obstructive pulmonary disease): Not in acute exacerbation Continue to monitor Qualifiers: COPD type: unspecified COPD Qualified Code(s): J44.9 - Chronic obstructive pulmonary disease, unspecified (3) Tobacco use: Would benefit from cessation (4) Eli esophagus: Continue PPI Qualifiers: Eli's esophagus type: without dysplasia Qualified Code(s): K22.70 - Eli's esophagus without dysplasia (5) HTN (hypertension): Continue ARB Continue home hydralazine PRN Consider beta patrick Qualifiers: Hypertension type: primary hypertension Qualified Code(s): I10 - Essential (primary) hypertension (6) Dyslipidemia: Continue statin Plan DVT ppx: Lovenox Code: Full Code Attestations Medical Necessity Statement*: Patient presents with chest pain concerning for unstable angina with hospitalization not expected to cross two midnights. Coding Level of Care Code Acute Code for [facility] Diagnoses Chest pain R07.9 Chest pain type: unspecified COPD (chronic obstructive pulmonary disease) J44.9 COPD type: unspecified COPD Tobacco use Z72.0 Eli esophagus K22.70 Eli's esophagus type: without dysplasia HTN (hypertension) I10 Hypertension type: primary hypertension Dyslipidemia E78.5
[2022-10-28] MEDS: enoxaparin 80 mg/0.8 mL Syringe SUBCUT (22:21)
--- NOTE | 2022-10-28 23:34 | ECG_ITS ---
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 Measurements Intervals [place] Rate: 58 P: 22 MS: 158 QRS: 40 QRSD: 102 T: 44 QT: 410 QTc: 404 Interpretive Statements SINUS BRADYCARDIA MODERATE T-WAVE ABNORMALITY, CONSIDER ANTERIOR ISCHEMIA [-0.1+ mV T-WAVE IN V3/V4] Compared to ECG 10/28/2022 17:01:43 Sinus rhythm no longer present T-wave abnormality still present Possible ischemia still present Electronically Signed On 10-30-2022 8:37:04 CDT by Spenser Carrillo M.D. [id number]
--- NOTE | 2022-10-28 23:35 | ECG_ITS ---
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 Measurements Intervals [place] Rate: 58 P: 29 KS: 160 QRS: 39 QRSD: 101 T: 42 QT: 420 QTc: 413 Interpretive Statements SINUS BRADYCARDIA MODERATE T-WAVE ABNORMALITY, CONSIDER ANTERIOR ISCHEMIA [-0.1+ mV T-WAVE IN V3/V4] Compared to ECG 10/28/2022 23:34:27 No significant changes Electronically Signed On 10-30-2022 8:37:00 CDT by Spenser Carrillo M.D. [email or web address] [employer] Electricwhitfield medical surgical [email or web address] [email or web address]/store/[id number]
[2022-10-28 23:48] LABS: Troponin 5 6HR Delta -1.9 ng/L (0-12)
[2022-10-29] VITALS (56 sets, daily range): BP systolic 100–114; BP diastolic 51–79; PULSE 59–94; RESP 2–21; TEMP 36.4–37; O2SAT 90–96
[2022-10-29] MEDS: isosorbide mononitrate ER 30 mg Tablet PO (09:01)
[2022-10-29] MEDS: gabapentin 300 mg Capsule 600 MG PO ×3 (09:01→20:30)
[2022-10-29] MEDS: losartan 50 mg Tablet 25 MG PO (09:02)
[2022-10-29] MEDS: clopidogrel 75 mg Tablet PO (09:02)
[2022-10-29] MEDS: isosorbide mononitrate ER 60 mg Tablet PO (09:02)
[2022-10-29] MEDS: pantoprazole DR 40 mg Tablet PO ×2 (09:02→17:26)
[2022-10-29] MEDS: lipase-protease-amylase Capsule 1 EACH PO ×2 (09:07→17:26)
[2022-10-29] MEDS: aspirin 81 mg EC Tablet PO (09:08)
[2022-10-29] MEDS: duloxetine 60 mg Capsule PO (09:08)
--- NOTE | 2022-10-29 12:46 | ECG_ITS ---
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 Interpretive Statements NAME OF STUDY: LEXISCAN SESTAMIBI STRESS TEST INDICATION: UNSTABLE ANGINA; Chest Pain; UNSTABLE ANGINA; Chest Pain PROCEDURE: At the baseline, the blood pressure was 108/66 mmHg with a heart rate of 67 beats per min. The electrocardiogram showed sinus rhythm with limb lead reversal and nonspecific T wave changes. The Lexiscan was infused over a period of 20 seconds. A total of 0.4 milligrams of Lexiscan was infused. The stress phase was continued for a total of 5 minutes. Heart rate at the end of the stress phase was 89 bpm with a blood pressure of 88/48 mmHg. The EKG at the peak infusion revealed significant ST-T wave changes. Sestamibi was injected 20 seconds after the Lexiscan infusion. Blood pressure at the end of the recovery phase was 93/48 mmHg with a heart rate of 84 beats per minute. CONCLUSION: 1. No significant EKG changes with the LexiScan infusion 2. No LexiScan induced chest pain or cardiac arrhythmia. 3. Normal blood pressure and heart rate response. 4. Sestamibi/sestamibi perfusion scan pending; see separate report. Electronically Signed On 10-31-2022 12:39:30 CDT by Missy Amaya M.D. [id number]
--- NOTE | 2022-10-29 12:46 | PM.PN ---
Subjective Subjective: Patient has reproducible pain Dr. Romo evaluated him we will do stress test tomorrow Troponins flat EKG without significant ischemic or infarct changes Patient is stating that he has esophageal and colon cancer only seen Dr. Burger at [facility] he is not sure about his staging he has never received chemoradiotherapy other than surgical intervention in the past Vitals/I&O/Wt Last Vital Signs Temp 98.6 F 10/29/22 12:00 Pulse 80 10/29/22 12:00 Resp 14 10/29/22 12:00 BP 101/55 10/29/22 12:00 Pulse Ox 92 10/29/22 12:00 O2 Del Method Room Air 10/29/22 12:00 10/28/22 10/29/22 10/29/22 22:59 06:59 14:59 Intake Total 480 / 480 Output Total 590 / 590 Balance 480 / 480 -590 / -590 Weight last 48 hrs Weight 79.379 kg Physical Exam Narrative: Awake and alert Reproducible pain GCS 15 Looks dehydrated Hemogram: Nonfocal neuro exam S1, S2 Currently on room air Data 10/28/22 17:26 10/28/22 17:26 A&P Assessment and plan (1) Chest pain: Qualifiers: Chest pain type: unspecified Qualified Code(s): R07.9 - Chest pain, unspecified (2) Eli esophagus: Qualifiers: Eli's esophagus type: without dysplasia Qualified Code(s): K22.70 - Eli's esophagus without dysplasia (3) Depression: Qualifiers: Depression Type: major depressive disorder Major depression recurrence: recurrent Active/Remission status: currently active Major depression episode severity: severe Psychotic features: without psychotic features Qualified Code(s): F33.2 - Major depressive disorder, recurrent severe without psychotic features (4) Aorta aneurysm: Qualifiers: Aortic location: thoracic aorta Presence of rupture: without rupture Qualified Code(s): I71.2 - Thoracic aortic aneurysm, without rupture (5) COPD (chronic obstructive pulmonary disease): Qualifiers: COPD type: unspecified COPD Qualified Code(s): J44.9 - Chronic obstructive pulmonary disease, unspecified (6) Tobacco use: (7) GERD (gastroesophageal reflux disease): Qualifiers: Esophagitis presence: with esophagitis Esophagitis bleeding: without hemorrhage Qualified Code(s): K21.00 - Gastro-esophageal reflux disease with esophagitis, without bleeding (8) LAURA (generalized anxiety disorder): Plan Unstable angina History of coronary disease, he is being continued on aspirin and Plavix I will give him DVT prophylaxis Lovenox Check drug screen Let him eat today Stress test tomorrow and n.p.o. after midnight Full code Continue antihypertensive regimen History of smoking and noncompliance Attestations Medical Necessity Statement*: Stress test tomorrow Diagnoses Chest pain R07.9 Chest pain type: unspecified Eli esophagus K22.70 Eli's esophagus type: without dysplasia Depression F33.2 Depression Type: major depressive disorder Major depression recurrence: recurrent Active/Remission status: currently active Major depression episode severity: severe Psychotic features: without psychotic features Aorta aneurysm I71.2 Aortic location: thoracic aorta Presence of rupture: without rupture COPD (chronic obstructive pulmonary disease) J44.9 COPD type: unspecified COPD Tobacco use Z72.0 GERD (gastroesophageal reflux disease) K21.00 Esophagitis presence: with esophagitis Esophagitis bleeding: without hemorrhage LAURA (generalized anxiety disorder) F41.1
[2022-10-29] MEDS: aluminum-mag hydrox-simethicon 30 ML, sucralfate oral liq 1 GM PO (13:10)
[2022-10-29] MEDS: enoxaparin 40 mg/0.4 mL Syringe SUBCUT (13:11)
--- NOTE | 2022-10-29 15:39 | P.CONIM_ITS ---
Providers/Reason For Consult Consulting Physician/Specialty*: Jesus Franco MD Reason for Consult*: chest pain Requesting Physician: Dr Rowland Attending Physician: Jesus Rowland MD Primary Care Provider: Anna Roach MD History of Present Illness History of Present Illness Jovanny Rico is a 42 year old male past medical history significant for questionable compliance history of coronary artery disease history of stent to mid LAD for 80% stenosis in 2021, recent history of possible Eli esophagus this is as per patient no record available to me patient is following up with [facility] for it. He presented with atypical chest pain reproducible upon pressing down sternum. He has been ruled out with acute coronary syndrome. Twelve-lead EKG consistent with sinus bradycardia left ventricle hypertrophy wi th anterior T wave inversion could be repolarization abnormality when compared to the prior EKG from 09 October there is no significant change. Medications/Allergies Home Medications Medication Instructions Recorded Confirmed Last Taken Type yfkkqi-pybnempn-bqklmmu 1 cap PO TIDWM 11/26/21 10/28/22 11/25/21 History 40,000-126,000-168,000 unit capsule, delay rel (Zenpep) hydralazine 10 mg tablet 10 mg PO TID PRN hypertension #60 04/11/22 10/28/22 Unknown Rx tabs aspirin 81 mg tablet,delayed 81 mg PO DAILY 90 days #90 tabs 06/07/22 10/28/22 Unknown Rx release atorvastatin 80 mg tablet 80 mg PO BEDTIME #90 tabs 06/07/22 10/28/22 Unknown Rx clopidogrel 75 mg tablet 75 mg PO DAILY 90 days #90 tabs 06/07/22 10/28/22 Unknown Rx duloxetine 60 mg capsule,delayed 60 mg PO DAILY 90 days #90 caps 06/07/22 10/28/22 Unknown Rx release (Cymbalta) isosorbide mononitrate 30 mg 30 mg PO QAM #90 tabs 06/07/22 10/28/22 Unknown Rx tablet,extended release 24 hr isosorbide mononitrate 60 mg 60 mg PO DAILY #90 tabs 06/07/22 10/28/22 Unknown Rx tablet,extended release 24 hr losartan 25 mg tablet 25 mg PO DAILY 90 days #90 tabs 06/07/22 10/28/22 Unknown Rx nitroglycerin 0.4 mg sublingual 0.4 mg sublingual Q5M PRN Chest 06/07/22 10/28/22 Unknown Rx tablet Pain #25 tabs pantoprazole 40 mg tablet,delayed 40 mg PO BID 90 days #180 tabs 06/07/22 10/28/22 Unknown Rx release (Protonix) ondansetron 4 mg disintegrating 4 mg PO Q8H PRN nausea and 08/29/22 10/28/22 Unknown Rx tablet vomiting #15 tabs gabapentin 600 mg tablet 600 mg PO TID PRN Pain 10/28/22 10/28/22 Unknown History Allergies Allergy/AdvReac Type Severity Reaction Status Date / Time No Known Allergies Allergy Verified 10/28/22 17:05 Current Medications Generic Name Dose Route Start Last Admin Trade Name Freq PRN Reason Stop Dose Admin Lipase/Protease/Amylase 1 each 10/29/22 08:00 10/29/22 12:14 Qpeecz-Deyorpkt-Mieytzx Capsule PO Not Given TIDWM POP Aspirin 81 mg 10/29/22 09:00 10/29/22 09:08 Aspirin 81 Mg Ec Tablet PO 81 mg DAILY POP Administration Clopidogrel Bisulfate 75 mg 10/29/22 09:00 10/29/22 09:02 Clopidogrel 75 Mg Tablet PO 75 mg DAILY POP Administration Duloxetine HCl 60 mg 10/29/22 09:00 10/29/22 09:08 Duloxetine 60 Mg Capsule PO 60 mg DAILY POP Administration Enoxaparin Sodium 40 mg 10/29/22 13:00 10/29/22 13:11 Enoxaparin 40 Mg/0.4 Ml Syringe SUBCUT 40 mg Q24H POP Administration Gabapentin 600 mg 10/29/22 09:00 10/29/22 14:41 Gabapentin 300 Mg Capsule PO 600 mg TID POP Administration Isosorbide Mononitrate 30 mg 10/29/22 09:00 10/29/22 09:01 Isosorbide Mononitrate Er 30 Mg Tablet PO 30 mg DAILY POP Administration Isosorbide Mononitrate 60 mg 10/29/22 09:00 10/29/22 09:02 Isosorbide Mononitrate Er 60 Mg Tablet PO 60 mg DAILY POP Administration Losartan Potassium 25 mg 10/29/22 09:00 10/29/22 09:02 Losartan 50 Mg Tablet PO 25 mg DAILY POP Administration Pantoprazole Sodium 40 mg 10/29/22 09:00 10/29/22 09:[address] 40 Mg Tablet PO 40 mg BID POP Administration PFSH Acute PFSH: Medical History Aorta aneurysm Atherosclerosis of coronary artery Central apnea Cervical radiculopathy Colon polyp COPD (chronic obstructive pulmonary disease) Depression Dyslipidemia Gastritis and duodenitis Gastroesophageal reflux disease Gross hematuria HTN (hypertension) Presence of stent in LAD coronary artery Staghorn calculus Unstable angina Urolithiasis Surgical History H/O colonoscopy with polypectomy History of cholecystectomy Hx of heart artery stent S/P ureteral stent placement Status post laser lithotripsy of ureteral calculus Family History Father Heart disease Alcoholic Lung disease Mother Healthy adult Social History Smoking and tobacco status: current every day smoker cigarettes Packs smoked per day: 0.5 Years cigarettes smoked: 20 Alcohol intake: current Alcohol intake frequency: holidays/special occasions only Substance/Drug Use: never Marital status: Current occupational status: unemployed Vitals/I&O/Wt Last Vital Signs Temp 98.6 F 10/29/22 12:00 Pulse 92 10/29/22 14:10 Resp 14 10/29/22 12:00 BP 101/55 10/29/22 12:00 Pulse Ox 92 10/29/22 12:00 O2 Del Method Room Air 10/29/22 12:00 10/29/22 10/29/22 10/29/22 06:59 14:59 22:59 Output Total 590 / 590 Balance -590 / -590 Weight last 48 hrs Weight 175 lb Physical Exam Narrative: Alert awake and alert not in distress Lungs decreased breath sound clear to auscultate, upon pressing left upper chest tenderness Heart regular S1-S2 no murmur rub or gallop 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 Since patient has history of coronary artery disease recent esophagitis/Eli's esophagus as per patient and because it is reproducible would like to rule out cardiac etiology by stress test. Will ask for treadmill nuclear stress test tomorrow, continue aspirin statin isosorbide mononitrate clopidogrel hold beta-patrick for stress test tomorrow. Qualifiers: Chest pain type: unspecified Qualified Code(s): R07.9 - Chest pain, unspecified (2) Eli esophagus: Increase Protonix to twice daily for Qualifiers: Eli's esophagus type: without dysplasia Qualified Code(s): K22.70 - Eli's esophagus without dysplasia (3) Dilated aortic root: No aneurysm noted as per CTA in May of 2022 (4) Dyslipidemia: Continue high-intensity statin (5) HTN (hypertension): Well-controlled Qualifiers: Hypertension type: primary hypertension Qualified Code(s): I10 - Essential (primary) hypertension Coding Level of Care Code Acute Code for [facility] Diagnoses Chest pain R07.9 Chest pain type: unspecified Eli esophagus K22.70 Eli's esophagus type: without dysplasia Dilated aortic root I77.810 Dyslipidemia E78.5 HTN (hypertension) I10 Hypertension type: primary hypertension
[2022-10-29] MEDS: morphine IR 15 mg Tablet PO ×2 (17:51→20:31)
[2022-10-29 18:36] LABS: Cocaine Screen Urine Negative (Negative); Opiate Screen Urine Positive (Negative); PCP Screen Urine Negative (Negative); THC Screen Urine Negative (Negative)
[2022-10-29 19:05] LABS: Amphetamines Screen Urine Negative (Negative); Barbiturates Screen Urine Negative (Negative); Benzodiazepines Screen Urine Negative (Negative)
[2022-10-29] MEDS: atorvastatin 40 mg Tablet 80 MG PO (20:30)
[2022-10-30] VITALS (8 sets, daily range): BP systolic 93–109; BP diastolic 48–69; PULSE 68–94; RESP 15–18; TEMP 36.6–37.3; O2SAT 92–94
[2022-10-30] MEDS: regadenoson 0.4 Mg/5 ml Syringe IVP (07:05)
[2022-10-30] MEDS: duloxetine 60 mg Capsule PO (09:23)
[2022-10-30] MEDS: losartan 50 mg Tablet 25 MG PO (09:23)
[2022-10-30] MEDS: isosorbide mononitrate ER 30 mg Tablet PO (09:23)
[2022-10-30] MEDS: lipase-protease-amylase Capsule 1 EACH PO ×2 (09:23→12:14)
[2022-10-30] MEDS: gabapentin 300 mg Capsule 600 MG PO (09:24)
[2022-10-30] MEDS: aspirin 81 mg EC Tablet PO (09:25)
[2022-10-30] MEDS: isosorbide mononitrate ER 60 mg Tablet PO (09:26)
[2022-10-30] MEDS: pantoprazole DR 40 mg Tablet PO (09:26)
[2022-10-30] MEDS: clopidogrel 75 mg Tablet PO (09:26)
--- NOTE | 2022-10-30 10:00 | NMCV_ITS ---
NM ghazal perf SPECT r/s* [id number] Jovanny Rico Age: 42 Gender: M : 1980 Exam Date: 10/30/2022 10:00 Ordering Phys: Jesus Franco MD ([email or web address]) Technologist: CARMITA Wilde Exam Location: [facility] Indications: CHEST PAIN STRESS TEST Please see separate stress test report in [facility] for full findings IMAGE PROTOCOL Rest/Stress 1 Lexiscan Day Radiopharmaceutical Dose (mCi) Administration Site Administered by Rest: Tc-99m 10.5 IV CARMITA Ruiz Sestamibi Stress:Tc-99m 32.2 IV CARMITA Ruiz Sestamibi Rest: 30-Oct-2022 60 Discovery 630 Stress: 30-Oct-2022 30 Discovery 630 0.4mg Lexiscan. Images obtained in supine and prone position. SPECT RESULTS Technical Quality: Excellent Raw Data Analysis: Normal Image Corrections: No attenuation or motion correction applied Summed Stress Score: 5 Summed Rest Score: 7 Summed Difference Score: 1 PERFUSION FINDINGS FUNCTIONAL RESULTS (calculated via Gated SPECT) Stress Image LV EF (%): 71 Stress EDV (mL):119 TID: 1.03 Stress ESV (mL):35 FUNCTIONAL FINDINGS: Small sized perfusion abnormality of mild severity of basal to mid inferior and basal to mid inferolateral valverde on rest images with subtle reversibility in mid inferolateral wall on supine stress images and improved tracer uptake on prone stress images. IMPRESSIONS 1. Small sized perfusion abnormality of mild severity of basal to mid inferior and basal to mid inferolateral valverde with subtle reversibility in mid inferolateral wall. 2. This may represent very small area of ischemia in circumflex/LAD artery territory. However with improved tracer uptake on prone stress images the reliability of this finding is questionable. 3. Overall left ventricular systolic function is normal without regional wall motion abnormalities, LVEF=71%. 4. EKG portion of the study will be reported separately. Missy Amaya MD (Electronically Signed) Final Date: 30 October 2022 12:58 S
--- NOTE | 2022-10-30 10:55 | P.DS_ITS ---
Discharge Providers Date of Admission: 10/29/22 14:27 Date of Discharge: October 30, 2022 Attending Provider at Admission: Pernell Rose MD Attending Provider at Discharge: Jesus Rowland MD Primary Care Provider: Anna Roach MD Diagnoses at Discharge Discharge Diagnosis (1) Chest pain: Status: Inactive Qualifiers: Chest pain type: unspecified Qualified Code(s): R07.9 - Chest pain, unspecified (2) Eli esophagus: Status: Inactive Qualifiers: Eli's esophagus type: without dysplasia Qualified Code(s): K22.70 - Eli's esophagus without dysplasia (3) Dilated aortic root: Status: Inactive (4) Dyslipidemia: Status: Inactive (5) HTN (hypertension): Status: Inactive Qualifiers: Hypertension type: primary hypertension Qualified Code(s): I10 - Essential (primary) hypertension Reason for Visit Reason for Visit: chest pain Hospital Course Hospital Course 42-year-old male active smoker noncompliant came in for left-sided chest pain radiating towards his left arm troponins without significant delta EKG without any infarctive or ischemic changes, cardiology was consulted who recommended cardiac stress test, patient has reproducible left-sided chest pain, drug screen positive for opioids, he remained hemodynamically stable Stress test showed reversible ischemia however such changes were not noted during proning, patient was advised to continue medical management with use of antianginal medications, will be discharged home with stable hemodynamics with follow-up with his PCP Physical Exam Narrative: Chest pain S1, S2 Currently on room air GCS 15 Nonfocal neuro exam Pleasant and cooperative Discharge Data Studies Completed and Pending Completed Studies During Hospitalization Category Date Time Status Sestamibi Stress Test Request Routine Exams 10/29/22 12:46 Draft XR chest 1V portable [id number] Stat Exams 10/28/22 17:09 Completed Pending at discharge Category Date Time Status Sestamibi Stress Test Request Routine Exams 10/29/22 16:15 Ordered NM ghazal perf SPECT r/s* [id number] Routine Nuc Med 10/30/22 10:00 Taken Radiology Impressions Chest X-Ray 10/28/22 17:09 IMPRESSION: No acute findings. Unchanged exam. Laboratory Results WBC 9.3 10^3/uL (4.0-10.0) 10/28/22 17:26 RBC 4.70 10^6/uL (4.1-5.3) 10/28/22 17:26 Hgb 14.0 g/dL (11.7-16.6) 10/28/22 17: Hct 43.3 % (42.0-52.0) 10/28/22 17: MCV 92.1 fl (80-94) 10/28/22 17: MCH 29.8 pg (28.0-34.0) 10/28/22 17: MCHC 32.3 g/dL (30.0-36.0) 10/28/22 17: RDW 15.4 % (12.1-15.1) H 10/28/22 17: Plt Count 261 10^3/cmm (130-400) 10/28/22 17: MPV 9.3 fL (7.4-10.4) 10/28/22 17: Neut % (Auto) 64.2 % 10/28/22 17: Lymph % (Auto) 22.5 % 10/28/22 17: [place] % (Auto) 9.9 % 10/28/22 17: Eos % (Auto) 2.3 % 10/28/22 17: Baso % (Auto) 0.8 % 10/28/22 17: Neut # (Auto) 5.97 10^3/uL (1.8-7.7) 10/28/22 17: Lymph # (Auto) 2.1 10^3/uL (0.8-4.8) 10/28/22 17: [place] # (Auto) 0.9 10^3/uL (0.2-0.9) 10/28/22: Eos # (Auto) 0.2 10^3/uL (0.0-0.8) 10/28/22 17: Baso # (Auto) 0.1 10^3/uL (0.0-0.1) 10/28/22: Nucleated RBC % (auto) 0 % 10/28/22: Nucleated RBCs # 0.0 /100WBC 10/28/22 17: Sodium 139 mmol/L (136-145) 10/28/22 17: Potassium 3.7 mmol/L (3.5-5.1) 10/28/22 17:26 Chloride 101 mmol/L (98-107) 10/28/22 17:26 Carbon Dioxide 24 mmol/L (22-29) 10/28/22 17:26 Anion Gap 17.7 (5-19) 10/28/22 17:26 BUN 14 mg/dL (6-20) 10/28/22 17:26 Creatinine 0.8 mg/dL (0.7-1.2) 10/28/22 17:26 GFR Calculation 106.5 mL/min (90-130) 10/28/22 17:26 Glucose 139 mg/dL (65-115) H 10/28/22 17:26 Calculated Osmolality 291 mOsm/kg (285-295) 10/28/22 17:26 Calcium 9.3 mg/dL (8.5-10.5) 10/28/22 17:26 Total Bilirubin 0.7 mg/dL (0.15-1.2) 10/28/22 17:26 AST 21 U/L (0-40) 10/28/22 17:26 ALT 22 U/L (0-41) 10/28/22 17:26 Alkaline Phosphatase 103 U/L (40-130) 10/28/22 17:26 Troponin T Baseline 11 ng/L (0-15) 10/28/22 17:26 Troponin T 120 Minute 8.04 ng/L (0-15) 10/28/22 19:21 Delta Troponin T -2.96 ABS# (0-10) L 10/28/22 19:21 Troponin T Hi Sens 6Hr 9.10 ng/L (0-15) 10/28/22 23:14 Troponin T Hi Sens 6Hr Delta -1.9 ng/L (0-12) L 10/28/22 23:14 NT-Pro-B Natriuret Pep 36 pg/mL (0-125) 10/28/22 17:26 Total Protein 6.4 g/dL (6.6-8.7) L 10/28/22 17:26 Albumin 4.3 g/dL (3.5-5.2) 10/28/22 17:26 Globulin 2.1 g/dL (1.3-4.6) 10/28/22 17:26 Lipase 20 U/L (13-60) 10/28/22 17:26 Urine Opiates Screen Positive ng/mL (Negative) H 10/29/22 18:00 Ur Barbiturates Screen Negative ng/mL (Negative) 10/29/22 18:00 Ur Phencyclidine Scrn Negative ng/mL (Negative) 10/29/22 18:00 Ur Amphetamines Screen Negative ng/mL (Negative) 10/29/22 18:00 U Benzodiazepines Scrn Negative ng/mL (Negative) 10/29/22 18:00 Urine Cocaine Screen Negative ng/mL (Negative) 10/29/22 18:00 U Marijuana (THC) Screen Negative ng/mL (Negative) 10/29/22 18:00 Vitals Last Vital Signs Temp 97.9 F 10/30/22 08:00 Pulse 79 10/30/22 08:00 Resp 16 10/30/22 08:00 BP 107/62 10/30/22 08:00 Pulse Ox 94 10/30/22 08:00 O2 Del Method Room Air 10/30/22 08:00 Discharge Plan Discharge Patient Disposition: Home Condition: Stable Prescriptions: Continued atorvastatin 80 mg tablet 80 mg PO BEDTIME Qty: 90 1RF Hold Instructions: Home Medication placed on hold at Doctor's office duloxetine [Cymbalta] 60 mg capsule,delayed release(DR/EC) 60 mg PO DAILY 90 Days Qty: 90 1RF isosorbide mononitrate 60 mg tablet extended release 24 hr 60 mg PO DAILY Qty: 90 1RF isosorbide mononitrate 30 mg tablet extended release 24 hr 30 mg PO QAM Qty: 90 1RF Rx Instructions: take with 60mg to equal 90mg daily pantoprazole [Protonix] 40 mg tablet,delayed release (DR/EC) 40 mg PO BID 90 Days Qty: 180 1RF losartan 25 mg tablet 25 mg PO DAILY 90 Days Qty: 90 1RF nitroglycerin 0.4 mg tablet, sublingual 0.4 mg sublingual Q5M PRN (Reason: Chest Pain) Qty: 25 6RF Rx Instructions: do not exceed 3 doses per episode ondansetron 4 mg tablet,disintegrating 4 mg PO Q8H PRN (Reason: nausea and vomiting) Qty: 15 0RF gabapentin 600 mg tablet 600 mg PO TID PRN (Reason: Pain) clopidogrel 75 mg tablet 75 mg PO DAILY 90 Days Qty: 60 1RF aspirin 81 mg tablet,delayed release (DR/EC) 81 mg PO DAILY 90 Days Qty: 60 3RF Zenpep 40,000-126,000- 168,000 unit capsule,delayed release(DR/EC) 1 cap PO TIDWM Discontinued hydralazine 10 mg tablet 10 mg PO TID PRN (Reason: hypertension) Qty: 60 1RF Rx Instructions: BP >160/>100 Discharge Orders: Discharge Order (Routine); Ordered 10/30/22 Ordered By: Jesus Rowland Referrals: Alessandra Zelaya FNP [Nurse Practitioner] - 11/13/22 9:00 am Anna Roach MD [Primary Care Provider] - 11/02/22 10:30 am () Discharge Diet: Cardiac Discharge Activity: Increase activity as tolerated Patient Instructions: GERD (Gastroesophageal Reflux Disease) (DC), Hypertension (DC), COPD Stoplight, Chest Pain Stoplight, Opioid Safety Discharge Attestations Time Spent in Discharge Care*: greater than 30 min Quality Metrics Clinical Quality Measures [ No reported AMI, CVA or VTE this stay] Coding Level of Care Code Acute Code for Chg Fwd Diagnoses Chest pain R07.9 Chest pain type: unspecified Eli esophagus K22.70 Eli's esophagus type: without dysplasia Dilated aortic root I77.810 Dyslipidemia E78.5 HTN (hypertension) I10 Hypertension type: primary hypertension
--- NOTE | 2022-10-30 10:56 | USCV_ITS ---
Jovanny Rico Age: 42 Gender: M : 1980 Exam Date: 10/30/2022 13:55 Ordering Phys: Jesus Rowland MD Technologist: Bright Mcclure Exam Location: [facility] [place] Indication: UA BP: 107 / 62 HR: 65 Rhythm: Sinus Technical Quality: Adequate MEASUREMENTS (Male / Female) Normal Values 2D ECHO LVOT Diameter 2.3 cm LV Ejection Fraction MOD 2C 73.5 % LV Ejection Fraction 2C AL 75.1 % LA Diameter 3.9 cm LA Width 3.2 cm LA Height 5.5 cm RA Width 3.6 cm RA Height 5.0 cm Aorta at Sinotubular Diameter 3.7 cm IVC Diameter 1.8 cm M-MODE Aortic Annulus Diameter 3.8 cm LA Ao Ratio MM 1.0 MV E Point Septal Separation 0.7 cm DOPPLER AV Peak Velocity 163.0 cm/s LVOT Peak Velocity 141.0 cm/s AV Area Cont Eq vti 4.0 cm squared AV Area Cont Eq pk 3.7 cm squared MV Peak Velocity 78.0 cm/s MV Area PHT 3.6 cm squared Mitral E to A Ratio 1.0 MV E' Velocity 42.5 cm/s Mitral E to MV E' Ratio 6.1 Mitral E to LV E' Lateral Ratio 5.1 Mitral E to LV E' Septal Ratio 7.5 TR Peak Velocity 329.1 cm/s TR Peak Gradient 43.3 mmHg TR Mean Velocity 258.3 cm/s TR Mean Gradient 29.9 mmHg TR Velocity Time Integral 79.5 cm Right Atrial Pressure 3.0 mmHg Pulmonary Artery Systolic Pressu 46.3 mmHg PV Peak Velocity 135.0 cm/s RV Acceleration Time 0.1 s RV Ejection Time 0.2 s RV AcT/ET 0.5 FINDINGS Left Ventricle Normal left ventricular size and systolic function, EF 73 %. Mild left ventricular hypertrophy. No regional wall motion abnormalities. Right Ventricle The right ventricle is normal in size and function. Right Atrium The right atrium is normal in size. Left Atrium The left atrium is normal in size. Mitral Valve No gross abnormalities noted Aortic Valve No gross abnormalities noted Tricuspid Valve No gross abnormalities noted Pulmonic Valve No gross abnormalities noted Pericardium Normal pericardium without effusion. Aorta Dilated ascending aorta measuring 4.3 cm IVC The inferior vena cava appears normal. CONCLUSIONS Normal left ventricular size and systolic function, EF 73 %. Mild left ventricular hypertrophy. No regional wall motion abnormalities. There are no intracardiac masses. There is no pericardial effusion. Dilated aortic root measuring 4.3 cm in diameter, possibly unchanged from 11/03/2021 No similar previous studies are available for comparison Dr Don Bradley MD [facility] (Electronically Signed) Final Date: 30 October 2022 20:04 S
--- NOTE | 2022-10-30 11:20 | PM.PN ---
Subjective Subjective: Patient is chest pain free. Stress test is showing possible very small area of ischemia in left circumflex artery/LAD territory. However attenuation artifact cannot be ruled out. Vitals/I&O/Wt Last Vital Signs Temp 97.9 F 10/30/22 08:00 Pulse 79 10/30/22 08:00 Resp 16 10/30/22 08:00 BP 107/62 10/30/22 08:00 Pulse Ox 94 10/30/22 08:00 O2 Del Method Room Air 10/30/22 08:00 10/29/22 10/30/22 10/30/22 22:59 06:59 14:59 Intake Total 240 / 240 Output Total 450 / 1040 500 / 1540 Balance -210 / -800 -500 / -1300 Weight last 48 hrs Weight 175 lb Physical Exam Narrative: GENERAL: Patient is alert, awake and oriented x3. [] NECK: No jugular vein distension. [] HEENT: No cyanosis. No icterus. No pallor. [] HEART: Regular S1 and S2. No murmur, rub or gallop. [] LUNGS: Clear to auscultate bilaterally. [] CENTRAL NERVOUS SYSTEM: Grossly nonfocal. [] EXTREMITIES: Lower extremities with no edema Data 10/28/22 17:26 10/28/22 17:26 A&P Assessment and plan (1) Chest pain: Qualifiers: Chest pain type: unspecified Qualified Code(s): R07.9 - Chest pain, unspecified (2) Eli esophagus: Qualifiers: Eli's esophagus type: without dysplasia Qualified Code(s): K22.70 - Eli's esophagus without dysplasia (3) Dilated aortic root: (4) Dyslipidemia: (5) HTN (hypertension): Qualifiers: Hypertension type: primary hypertension Qualified Code(s): I10 - Essential (primary) hypertension Plan Stress test is showing very small area of abnormality versus attenuation artifact. Will recommend medical therapy Thank you for involving us with care of this patient. Please call with questions. Attestations Medical Necessity Statement*: Care expected to cross 2 midnights. Coding Level of Care Code Acute Code for [facility] Diagnoses Chest pain R07.9 Chest pain type: unspecified Eli esophagus K22.70 Eli's esophagus type: without dysplasia Dilated aortic root I77.810 Dyslipidemia E78.5 HTN (hypertension) I10 Hypertension type: primary hypertension
[2022-10-30] MEDS: enoxaparin 40 mg/0.4 mL Syringe SUBCUT (12:14)
== END 2022-10-30 14:45 | disposition home or self-care (01) | DRG 313 ==
LOC: ER 20:13 → CSU 10-29 06:16
PROVIDERS: Admitting Provider Internal Medicine; Emergency Provider Emergency Medicine; PCP Family Medicine; Visit Provider Internal Medicine
DX: R07.9 Chest pain, unspecified (principal); K22.70 Barrett's esophagus without dysplasia; I77.819 Aortic ectasia, unspecified site; I10 Essential (primary) hypertension; F17.210 Nicotine dependence, cigarettes, uncomplicated; Z79.891 Long term (current) use of opiate analgesic; Z79.02 Long term (current) use of antithrombotics/antiplatelets; Z79.82 Long term (current) use of aspirin; I25.10 Atherosclerotic heart disease of native coronary artery without angina pectoris; Z95.5 Presence of coronary angioplasty implant and graft; I25.2 Old myocardial infarction; J44.9 Chronic obstructive pulmonary disease, unspecified; Z91.148 Patient's other noncompliance with medication regimen for other reason; M54.12 Radiculopathy, cervical region; K21.9 Gastro-esophageal reflux disease without esophagitis; F41.1 Generalized anxiety disorder; Z87.442 Personal history of urinary calculi; Z96.0 Presence of urogenital implants
CPT/HCPCS: 36415; 71045; 78452; 80053; 80306; 83690; 83880; 84484; 85025; 93005; 93017; 93306; 96372; 96374; 96375; 96376; 99285; A9270; A9500; G0378; J1650; J2270; J2405; J2785

== ENCOUNTER 2022-10-31 19:53 | Emergency (ER) | payer MEDICAID, SELFPAY ==
--- NOTE | 2022-10-31 19:58 | XRR_ITS ---
PROCEDURE INFORMATION: Exam: XR Chest Exam date and time: 10/31/2022 8:04 PM Age: 42 years old Clinical indication: Pain; Chest pressure; Prior surgery; Surgery date: 6+ months; Surgery type: Stents; Additional info: Cp TECHNIQUE: Imaging protocol: Radiologic exam of the chest. Views: 1 view. COMPARISON: CR (CHEST, ) 10/28/2022 5:28 PM FINDINGS: Lungs: Unremarkable. No consolidation. Pleural spaces: Unremarkable. No pleural effusion. No pneumothorax. Heart/Mediastinum: Unremarkable. No cardiomegaly. Bones/joints: Unremarkable. XR/XR chest 1V portable [id number] IMPRESSION: No acute findings.
[2022-10-31 20:23] VITALS: BP 114/64; PULSE 77; RESP 16; TEMP 36.7; O2SAT 96; BMI 24.4
--- NOTE | 2022-10-31 20:25 | ECG_ITS ---
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 Measurements Intervals [place] Rate: 78 P: 48 PA: 160 QRS: 40 QRSD: 92 T: 55 QT: 351 QTc: 401 Interpretive Statements SINUS RHYTHM WITH SINUS ARRHYTHMIA VOLTAGE CRITERIA FOR LVH [MEETS CRITERIA IN ONE OF: R(aVL), S(V1), R(V5), R(V5/V6)+S(V1)] NONSPECIFIC T-WAVE ABNORMALITY Compared to ECG 10/28/2022 23:35:16 Left ventricular hypertrophy now present Sinus bradycardia no longer present Possible ischemia no longer present T-wave abnormality still present Electronically Signed On 11-01-2022 23:20:57 CDT by Don Bradley M.D. [id number]
[2022-10-31 20:31] LABS: Basophils # 0.1 10^3/uL (0.0-0.1); Basophils % 0.9 %; Eosinophils # 0.5 10^3/uL (0.0-0.8); Eosinophils % 6.2 %; Hematocrit 42.1 % (42.0-52.0); Hemoglobin 13.8 g/dL (11.7-16.6); Lymphocytes # 2.2 10^3/uL (0.8-4.8); Lymphocytes % 24.8 %; Mean Corpuscular HGB Conc 32.8 g/dL (30.0-36.0); Mean Corpuscular Hemoglobin 30.6 pg (28.0-34.0); Mean Corpuscular Volume 93.3 fl (80-94); Mean Platelet Volume 9.1 fL (7.4-10.4); Monocytes # 0.8 10^3/uL (0.2-0.9); Monocytes % 9.5 %; Neutrophils # 5.08 10^3/uL (1.8-7.7); Neutrophils % 58.3 %; Nucleated Red Blood Cells % 0 %; Platelet Count 219 10^3/cmm (130-400); Red Blood Count 4.51 10^6/uL (4.1-5.3); Red Cell Distribution Width 14.6 % (12.1-15.1); White Blood Count 8.7 10^3/uL (4.0-10.0)
[2022-10-31 20:49] LABS: Alanine Aminotransferase 19 U/L (0-41); Albumin Level 4.3 g/dL (3.5-5.2); Alkaline Phosphatase 103 U/L (40-130); Anion Gap 15.1 (5-19); Aspartate Amino Transferase 13 U/L (0-40); Blood Urea Nitrogen 19 mg/dL (6-20); Calcium 9.1 mg/dL (8.5-10.5); Carbon Dioxide 25 mmol/L (22-29); Chloride 102 mmol/L (98-107); Globulin 2.2 g/dL (1.3-4.6); Glomerular Filtration Rate 106.5 mL/min (90-130); Glucose 106 mg/dL (65-115); Lipase 34 U/L (13-60); Osmolality Calculated 289 mOsm/kg (285-295); Potassium 4.1 mmol/L (3.5-5.1); Sodium 138 mmol/L (136-145); Total Bilirubin 0.4 mg/dL (0.15-1.2); Total Protein 6.5 g/dL (6.6-8.7)
[2022-10-31 20:52] LABS: Troponin(5th) Baseline 7 ng/L (0-15)
== END 2022-10-31 20:51 | disposition left against medical advice (07) ==
LOC: ER 19:57
PROVIDERS: Emergency Medicine; Emergency Provider Family Medicine; PCP Family Medicine
DX: Z53.21 Procedure and treatment not carried out due to patient leaving prior to being seen by health care provider (principal)
CPT/HCPCS: 36415; 71045; 80053; 83690; 84484; 85025; 85610; 93005

== ENCOUNTER → 2022-11-20 11:50 | Outpatient (BNVA) | payer MEDICAID, SELFPAY | PROVIDERS: PCP Family Medicine; Referring Provider Internal Medicine Gastroenterology; Visit Provider Internal Medicine Gastroenterology | DX: A04.8 Other specified bacterial intestinal infections (principal) | CPT/HCPCS: 87338 ==

== ENCOUNTER 2023-06-13 17:46 | Emergency (ER) | payer MEDICAID, SELFPAY ==
[2023-06-13 17:58] VITALS: BP 128/75; PULSE 87; RESP 16; TEMP 36.7; O2SAT 95
--- NOTE | 2023-06-13 18:26 | W.ED.EXTPRO ---
HPI - Extremity Problem General: Chief complaint: Extremity Problem,Nontraumatic Stated complaint: left shoulder pain Time Seen by Provider: 06/13/23 18:24 History of Present Illness: Patient comes in today for complaints of left shoulder pain. Patient has a history of a rotator cuff injury. Patient reports last 2 weeks he has had increasing pain and discomfort. Patient appears nontoxic. Patient denies any new injury. Review of Systems General: Reports: 10 or more systems reviewed and unremarkable except in HPI and below Musc: Reports: joint pain (Left shoulder) PFSH ED PFSH: Medical History Unstable angina Chest pain Colon polyp Gastritis and duodenitis Eli esophagus Dilated aortic root Urolithiasis LAURA (generalized anxiety disorder) GERD (gastroesophageal reflux disease) Cervical radiculopathy HTN (hypertension) Dyslipidemia Gross hematuria Staghorn calculus Atherosclerosis of coronary artery Presence of stent in LAD coronary artery Central apnea Tobacco use Gastroesophageal reflux disease COPD (chronic obstructive pulmonary disease) Aorta aneurysm Depression Surgical History Status post laser lithotripsy of ureteral calculus S/P ureteral stent placement Hx of heart artery stent H/O colonoscopy with polypectomy History of cholecystectomy Family History Father Heart disease Alcoholic Lung disease Mother Healthy adult Social History Smoking and tobacco/nicotine status: current every day tobacco/nicotine user cigarettes Packs smoked per day: 0.5 Years cigarettes smoked: 20 Alcohol intake: current Alcohol intake frequency: holidays/special occasions only Substance/Drug Use: never Marital status: Current occupational status: unemployed Physical Exam Const: COMMON NORMALS: alert HENMT: COMMON NORMALS: normocephalic HEAD & SCALP: normocephalic Neck/C-Spine: COMMON NORMALS: full ROM Chest: COMMONS NORMALS: normal inspection of the chest Resp: COMMON NORMALS: normal respiratory effort and clear to auscultation bilaterally AUSCULTATION: clear to auscultation bilaterally Cardio: COMMON NORMALS: regular rate and regular rhythm RATE: regular rate RHYTHM: regular rhythm GI: COMMON NORMALS: non-tender Back/Pelvis: COMMON NORMALS: thoracic and lumbar spine normal to inspection Extremity: LEFT UPPER EXTREMITY: Yes shoulder joint (Anterior shoulder tenderness) Left shoulder joint: Yes ROM (Decreased range of motion due to pain) Neuro: SENSORIUM/ORIENTATION: Yes alert Skin: COMMON NORMALS: turgor normal GENERAL SKIN EXAM: turgor normal Course Vital Signs: Vital signs: Vital Signs Temperature 98.1 F 06/13/23 17:58 Pulse Rate 87 06/13/23 17:58 Respiratory Rate 16 06/13/23 17:58 Blood Pressure 128/75 06/13/23 17:58 Pulse Oximetry 95 06/13/23 17:58 Oxygen Delivery Me thod Room Air 06/13/23 17:58 MDM - Extremity (Nontraumatic) Medical Decision Making 43-year-old male patient comes in today with reproducible left shoulder pain. On exam patient has increased pain with range of motion of the shoulder. Distal pulses and sensation are intact. Palpable tenderness is noted to the anterior shoulder. No significant redness or inflammation is noted. Differential diagnosis includes not limited to cervical radiculopathy, bursitis, tendinitis, rotator cuff injury, malingering. No x-rays were done due to no recent injury. Reviewed exam with patient recommended treatment with steroids for inflammation and hydrocodone for pain. Patient reported understanding and agreed to plan. Case management was requested to have patient follow-up with orthopedics for further evaluation and treatment. No radiology studies performed this visit Discharge Plan Discharge Condition: Stable Prescriptions: No Action atorvastatin 80 mg tablet 80 mg PO BEDTIME Qty: 90 1RF Hold Instructions: Home Medication placed on hold at Doctor's office clopidogrel 75 mg tablet 75 mg PO DAILY 90 Days Qty: 90 1RF dicyclomine 20 mg tablet 20 mg PO TID PRN (Reason: esophageal spasm) Qty: 30 5RF duloxetine [Cymbalta] 60 mg capsule,delayed release(DR/EC) 60 mg PO DAILY 90 Days Qty: 90 1RF gabapentin 600 mg tablet 600 mg PO TID PRN (Reason: Pain) 90 Days Qty: 270 1RF isosorbide mononitrate 60 mg tablet extended release 24 hr 60 mg PO DAILY Qty: 90 1RF isosorbide mononitrate 30 mg tablet extended release 24 hr 30 mg PO QAM Qty: 90 1RF Rx Instructions: take with 60mg to equal 90mg daily losartan 25 mg tablet 25 mg PO DAILY 90 Days Qty: 90 1RF pantoprazole [Protonix] 40 mg tablet,delayed release (DR/EC) 40 mg PO BID 90 Days Qty: 180 1RF nitroglycerin 0.4 mg tablet, sublingual 0.4 mg sublingual Q5M PRN (Reason: Chest Pain) Qty: 25 6RF Rx Instructions: do not exceed 3 doses per episode ondansetron 4 mg tablet,disintegrating 4 mg PO BID PRN (Reason: nausea and vomiting) Qty: 30 0RF aspirin 81 mg tablet,delayed release (DR/EC) 81 mg PO DAILY 90 Days Qty: 60 3RF Referrals: Anna Roach MD [Primary Care Provider] - Coding Level of Care Code ED Cardroom Worker for Clair Mathew
[2023-06-13] MEDS: dexamethasone 10 mg/mL INJ IM (19:07)
[2023-06-13] MEDS: HYDROcodone-acetaminophen 7.5-325 mg Tablet 1 TAB PO (19:07)
[2023-06-13 19:11] VITALS: BP 128/75; PULSE 87; RESP 16; TEMP 36.7; O2SAT 95
--- NOTE | 2023-06-14 10:16 | DCPLANNER ---
A message was sent to ortho on 06/14/[address] [place] [address] to contact patient for appt.
== END 2023-06-13 19:12 | disposition home or self-care (01) ==
PROVIDERS: Emergency Provider Nurse Practitioner Family; PCP Family Medicine
DX: M25.512 Pain in left shoulder (principal); Z79.02 Long term (current) use of antithrombotics/antiplatelets; Z79.82 Long term (current) use of aspirin; F17.210 Nicotine dependence, cigarettes, uncomplicated; I10 Essential (primary) hypertension; E78.5 Hyperlipidemia, unspecified; I25.10 Atherosclerotic heart disease of native coronary artery without angina pectoris; J44.9 Chronic obstructive pulmonary disease, unspecified
CPT/HCPCS: 96372; 99284; J1100

== ENCOUNTER → 2023-07-11 14:15 | Outpatient (BNVA) | payer MEDICAID, SELFPAY | PROVIDERS: PCP Family Medicine; Referring Provider Nurse Practitioner Family; Visit Provider Specialist | DX: M25.512 Pain in left shoulder (principal); G89.29 Other chronic pain | CPT/HCPCS: 73030 ==

== ENCOUNTER → 2023-09-10 08:56 | Outpatient (BNVA) | payer MEDICAID, SELFPAY | PROVIDERS: PCP Family Medicine; Visit Provider Family Medicine | DX: I10 Essential (primary) hypertension (principal); E78.5 Hyperlipidemia, unspecified | CPT/HCPCS: 80053; 80061; 85025 ==

== ENCOUNTER 2024-01-18 12:18 | Observation (INO) | payer MEDICAID, SELFPAY ==
[2024-01-18] VITALS (33 sets, daily range): BP systolic 109–147; BP diastolic 73–98; PULSE 62–110; RESP 15–27; TEMP 36.7–37; O2SAT 88–100
--- OUTSIDE RECORDS SUMMARY | 2024-01-18 12:21 | XMS_ITS | Continuity of Care Document ---
Author Name Unknown Organization [facility] Address [address] [place] [address]- Care Team Providers Care Safe Technician Name Role Phone Anna Roach MD Primary Care Physician Anna Roach MD Primary Care Physician [phone] Encounter [facility] Financial Number [id number] Date(s): 11/27/23 - 11/28/23 [facility] [address] [place] [address]- Encounter Diagnosis Other chest pain(Discharge Diagnosis) - 11/28/23 PNA (pneumonia)(Discharge Diagnosis) - 11/28/23 History of aortic aneurysm(Discharge Diagnosis) - 11/28/23 Discharge Disposition: .Discharge to Home (Routine) Attending Physician: Hank Holley MD Allergies, Adverse Reactions, Alerts No Known Allergies Assessment and Plan Extracted from: Title:Chest pain Author:Hank Holley MD Date: Impression and Plan Plan Condition: Improved, Stable. Disposition: Discharged: The patient received an appropriate MSE including H&P exam as well as ancillary studies and procedures determined appropriate in the provider's judgement. The patient is medically and/or psychologically cleared for discharge. . Discharge: Diagnosis: Other chest pain (R07.89) PNA (pneumonia) (J18.9) History of aortic aneurysm (Z86.79) Rx: doxycycline hyclate 100 mg oral capsule 100 mg, = 1 cap, By mouth, BID, 10 Days, 20 cap, 0, 0, 12/08/23 2:33:00 CDT, Substitution Permitted, [facility], 71, Height (inches) (Clinical), 11/27/23 22:27:00 CDT, in, 105.9, Weight (kg) (Clinical), 11/27/23 22:27:00 CDT, kg Education: Community-Acquired Pneumonia, Adult, [id number] Orders: ( Completed ): Xtra Gold/Blue Set 11/27/2023 22:50 Xtra blue top 11/27/2023 22:50 Xtra Gold Top 11/27/2023 22:50 Obtain EKG (Obtain EKG) 11/27/2023 22:34 Lipase (Lipase) 11/27/2023 23:33 Troponin I - Series High-Sensitivity (Troponin I - Series High-Sensitivity) 11/27/2023 23:33 NT-proBNP (NT-proBNP) 11/27/2023 23:31 Magnesium Serum (Magnesium Serum) 11/27/2023 23:33 zTroponin I - HS 2 Hr (zTroponin I - HS 2 Hr) 11/28/2023 02:06 zCBC Automated Diff 11/27/2023 22:58 CMP (CMP) 11/27/2023 23:33 XR Chest 1 View (XR Chest 1 View) 11/28/2023 01:48 Height to Glucommander CBC-d (CBC-d) 11/27/2023 22:[address] Angio Chest (CT Angio for Thoracic Aorta) 11/28/2023 01:54 morphine (morphine INJ) 4 mg 11/28/2023 01:22 iopamidol (ISOVUE 370 IBP INJ 500 ML) 100 mL 11/28/2023 01:45 Xtra Urine 11/28/2023 01:11 Orders: ( Ordered ): Obtain EKG 12 Lead (Obtain EKG 12 Lead) doxycycline (doxycycline) 100 mg Follow Up: Anna Roach 5 to 7 days You have been seen in the Emergency Department today. Please ensure that any questions you have about your workup are answered before you leave. Based on your evaluation today, we feel that you may be discharged home. It's very important that patients that are seen in the Emergency Department follow up for outpatient evaluation within from 3-5 days for a recheck. The Emergency Department is intended to evaluate individuals that require emergent care to stabilize serious traumatic injuries or potentially life threatening illness. It is not intended to be global or definitive health care, therefore follow up is very important. Follow Up: Call the physician indicated on this discharge paperwork for a timely follow up appointment. If you have a Primary Care Doctor, call them right away as well to discuss your ED visit, any ongoing symptoms and to schedule a follow up appointment. If you DO have a Primary Care Provider, fady them right away to let them know about your ED Visits.. Please review your labs and imaging results with your PCP - to include any incidental findngs that might need further outpatient work up. We aren't always able to find a diagnosis in the Emergency Department as our ability to evaluate patients is limited in scope and sometimes it takes time for serious illness to evolve and it's important that you return to the Emergency Department for re-evaluation if you worsen or even if you have general concern. Take all medication as prescribed . Counseled: Patient, Family, Regarding diagnosis, Regarding diagnostic results, Regarding treatment plan, Patient indicated understanding of instructions. Future Appointments Appointment Date:01/02/2024 08:30:00 AM Scheduled Provider:Thao Blanco MD Location:[facility] Appointment Type:Established Patient Appointment Date:05/08/2024 11:45:00 AM Scheduled Provider:[facility] Patient Future Scheduled Tests Laboratory* Lipid Panel with calculated LDL 12/03/23 * ALT/SGPT 12/03/23 * AST/SGOT 12/03/23 Radiology* CT Angio Chest 07/11/24 * ECHO Adult Complete 09/17/23 Medications amLODIPine 5 mg oral tablet 5 mg = 1 tab, By mouth, Daily, # 90 tab, Refill(s) 3, Pharmacy: [facility], [id number], D/C AMLODIPINE 2.5MG, 1 tab By mouth Daily, 97.73, 07/06/23 13:17:00 CDT, kg, Weight (kg) (Clinical) Start Date: 07/12/23 Status: Ordered aspirin 81 mg oral tablet 81 mg = 1 tab, By mouth, Daily, PRN Pain, # 30 tab, Refill(s) 11, Pharmacy: [facility], [id number], TAB, 1 tab By mouth Daily,x30 Days,PRN:Pain Start Date: 11/20/16 Stop Date: 11/15/17 Status: Ordered atorvastatin 80 mg oral tablet TAKE 1 TABLET BY MOUTH AT BEDTIME Start Date: 12/23/21 Status: Ordered baclofen 20 mg oral tablet TAKE 1 TABLET BY MOUTH THREE TIMES DAILY Start Date: 12/23/21 Status: Ordered clopidogrel 75 mg oral tablet 75 mg = 1 tab, By mouth, Daily, TAKE 1 TABLET BY MOUTH ONCE DAILY, # 90 tab, Refill(s) 3, Pharmacy:[facility], [id number], TAB, 1 tab By mouth Daily,Instr:TAKE 1 TABLET BY MOUTH ONCE DAILY, 97.73, 07/06/23 13:17:00... Start Date: 07/12/23 Status: Ordered Coreg 3.125 mg oral tablet 3.125 mg = 1 tab, By mouth, BID, # 60 tab, Refill(s) 11, Pharmacy: [facility], [id number], 1 tab By mouth BID, 103.18, 09/17/23 14:47:00 CDT, kg, Weight (kg) (Clinical) Start Date: 09/17/23 Status: Ordered doxycycline hyclate 100 mg oral capsule 100 mg, = 1 cap, By mouth, BID, 10 Days, 20 cap, 0, 0, 12/08/23 2:33:00 CDT, Substitution Permitted, [facility], 71, Height (inches) (Clinical), 11/27/23 22:27:00 CDT, in, 105.9, Weight (kg)(Clinical), 11/27/23 22:27:00 CDT, kg Start Date: 11/28/23 Stop Date: 12/08/23 Status: Ordered gabapentin 600 mg oral tablet TAKE 1 TABLET BY MOUTH THREE TIMES DAILY Start Date: 12/23/21 Status: Ordered isosorbide mononitrate 30 mg oral tablet, extended release TAKE 1 TABLET BY MOUTH ONCE DAILY IN THE MORNING. TAKE WITH 60MG TO EQUAL 90MG DAILY Start Date: 12/23/21 Status: Ordered Lasix 20 mg oral tablet 20 mg = 1 tab, By mouth, Daily, # 30 tab, Refill(s) 11, Pharmacy: [facility], [id number], 1 tab By mouth Daily, 103.18, 09/17/23 14:47:00 CDT, kg, Weight (kg) (Clinical) Start Date: 09/17/23 Status: Ordered nitroglycerin 0.4 mg sublingual tablet DISSOLVE ONE TABLET UNDER THE TONGUE EVERY 5 MINUTES NEEDED FOR CHEST PAIN. 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, kg, Weight Start Date: 06/06/22 Status: Ordered Repatha SureClick 140 mg/mL subcutaneous solution 140 mg, SubQ, Q2Wk, # 6 EA, Refill(s) 3, Pharmacy: [facility], [id number], 140 mg SUBQ Q2Wk, 103.18, 09/17/23 14:47:00 CDT, kg, Weight (kg) (Clinical) Start Date: 10/03/23 Status: Ordered Zenpep 4,000 = mg, By mouth, Refill(s) 0 Start Date: 10/13/21 Status: Ordered Problem List Condition Confirmation Course Effective Dates Status H ealth Status Informant Scapular dyskinesis Confirmed Active Ascending aortic aneurysm 1, 2 Confirmed Active Abnormal stress test Confirmed Active Chronic chest pain, etiology unknown Confirmed Active Chondromalacia, left shoulder Confirmed Active Chronic vertigo Confirmed Active CAD (coronary artery disease) Confirmed Active CAD (coronary atherosclerotic disease) 3 Confirmed Active Edema Confirmed Active Hypertension, essential Confirmed Active GERD (gastroesophageal reflux disease) Confirmed Active Hyperlipidemia Confirmed Active CA skin, basal cell Confirmed Active Angina pectoris, unstable Confirmed Active Syncope and collapse Confirmed Active Tobacco use Confirmed Active 1Ascending aortic aneurysm 3.[address] and 4.[address] with normal aortic valve on 2022 ECHO. Normal abdominal aorta on 2018 CT 2CTA chest 10/2015, 4cm. 31.2021 - Patient reports stent in his LAD in [place], [place] Procedures Procedure Date Related Diagnosis Body Site Status CARDIAC Stent placed 2021 Comp leted Esophageal 2020 Completed Coronary angiogram 08/01/15 Comple benny Cholecystectomy 2014 Completed Results Laboratory List Name Date zTroponin I - HS 2 Hr (zTrop I HS 2Hr) CBC-d 11/27/23 CMP 11/27/23 Lipase 11/27/23 Magnesium Serum (Mg Serum) 11/27/23 NT-proBNP 11/27/23 Troponin I - Series High-Sensitivity (Tr op I SeriesHS) 11/27/23 zCBC Automated Diff 11/27/23 Most recent to oldest [Reference Range]: 1 2 iTroponin 0.00 ng/mL 1 (11/27/23 10:39 PM) Anion Gap [2-15 mEq/L] 9 mEq/L (11/27/23 10:40 PM) Troponin I HS Delta 0-2 hr [<=3 ng/L] 0 ng/L 2 (11/28/23 1:34 AM) Troponin I HS [<=15 ng/L] 4 ng/L (11/28/23 1:34 AM) 4 ng/L (11/27/23 10:40 PM) eGFR CKD-EPI [>=61 mL/min/1.73 m2] 118 m L/min/1.73 m2 (11/27/23 10:40 PM) BNP [<=99 pg/mL] 27 pg/mL (11/27/23 10:40 PM) Glucose, Serum/Plasma [70-100 mg/dL] 139 mg/dL *HI* (11/27/23 10:40 PM) WBC [4.8-10.8 Thous/mm3] 8.5 Thous/mm3 (11/27/23 10:40 PM) Hct [42.0-52.0 %] 44.7 % (11/27/23 10:40 PM) Hgb [14.0-18.0 g/dL] 14.8 g/dL (11/27/23 10:40 PM) RBC [4.60-6.20 Million/mm3] 4.79 Million /mm3 (11/27/23 10:40 PM) MCV [80.0-100.0 fl] 93.3 fl (11/27/23 10:40 PM) MCH [26.0-34.0 pg] 30.9 pg (11/27/23 10:40 PM) MCHC [31.0-36.5 g/dL] 33.1 g/dL (11/27/23 10:40 PM) RDW [10.4-14.4 %] 14.3 % (11/27/23 10:40 PM) Platelets [130-440 Thous/mm3] 258 Thous/ mm3 (11/27/23 10:40 PM) MPV [9.4-12.4 fl] 9.7 fl (11/27/23 10:40 PM) AutoNeutrophil [43.0-78.0 %] 53.1 % (11/27/23 10:40 PM) AutoLymphs [20.0-40.0 %] 34.2 % (11/27/23 10:40 PM) AutoMono [2.0-10.0 %] 8.4 % (11/27/23 10:40 PM) AutoEo [0.0-7.0 %] 3.3 % (11/27/23 10:40 PM) Sodium [136-145 mEq/L] 141 mEq/L (11/27/23 10:40 PM) Potassium [3.5-5.1 mEq/L] 4.0 mEq/L (11/27/23 10:40 PM) Chloride [98-107 mEq/L] 110 mEq/L *HI* (11/27/23 10:40 PM) AbsNeut [2.0-8.0 Thous/mm3] 4.5 Thous/mm 3 (11/27/23 10:40 PM) CO2 [20-31 mEq/L] 22 mEq/L (11/27/23 10:40 PM) BUN [7-18 mg/dL] 14 mg/dL (11/27/23 10:40 PM) Creatinine [0.73-1.18 mg/dL] 0.70 mg/dL *LOW* (11/27/23 10:40 PM) AbsLymph [1.0-4.0 Thous/mm3] 2.9 Thous/m m3 (11/27/23 10:40 PM) AbsMono [0.1-1.0 Thous/mm3] 0.7 Thous/mm 3 (11/27/23 10:40 PM) Bilirubin, Total [0.2-1.0 mg/dL] <0.2 mg /dL (11/27/23 10:40 PM) AbsEo [0.0-0.5 Thous/mm3] 0.3 Thous/mm3 (11/27/23 10:40 PM) AbsBaso [0.0-0.2 Thous/mm3] 0.0 Thous/mm 3 (11/27/23 10:40 PM) AutoBaso [0.0-2.5 %] 0.6 % (11/27/23 10:40 PM) Calcium [8.3-10.6 mg/dL] 9.5 mg/dL (11/27/23 10:40 PM) Protein Total [6.4-8.5 g/dL] 6.8 g/dL (11/27/23 10:40 PM) Albumin [3.4-5.0 g/dL] 3.9 g/dL (11/27/23 10:40 PM) AST [15-37 U/L] 35 U/L (11/27/23 10:40 PM) Alk Phos [45-117 U/L] 112 U/L (11/27/23 10:40 PM) Magnesium [1.8-2.4 mg/dL] 1.8 mg/dL (11/27/23 10:40 PM) ALT [10-49 U/L] 39 U/L (11/27/23 10:40 PM) Lipase, Serum/Plasma [12-53 U/L] 43 U/L (11/27/23 10:40 PM) Imm. Grans % [0-5 %] <5 % (11/27/23 10:40 PM) Imm. Grans # [0.0-0.5 Thous/mm3] <0.5 Th ous/mm3 (11/27/23 10:40 PM) ANC-AbsNeutCount 4.5 Thous/mm3 *NA* (11/27/23 10:40 PM) 1Result Comment: Performed at:[facility], [facility] [place], [address] Reference Ranges: <0.03 ng/mL Negative 0.03 ??? 0.59 ng/mL Equivocal >/= 0.60 ng/mL Critical This result may not be used for patient management. Please refer to main lab Troponin result. 2Result Comment: Calculated by rule: [id number] Radiology Reports * Exam Date Time Procedure Performing Provider Status 11/28/23 1:[address] Angio Chest Leydi LOPEZ, Hank Perez; Auth (Verified) Notes: (CT Angio Chest) Reason For Exam: chest pain, history of ascending aortic aneurysm REPORT CT Angio Chest PROCEDURE INFORMATION: Exam: CTA Chest With Contrast Exam date and time: 11/28/2023 1:45 AM Age: 43 years old Clinical indication: Chest pain, history of ascending aortic aneurysm TECHNIQUE: Imaging protocol: Computed tomographic angiography of the chest with contrast. Exam focused on the arteries. 3D rendering (Not supervised by radiologist): MIP and/or 3D reconstructed images were created by the technologist. Radiation optimization: All CT scans at this facility use at least one of these dose optimization techniques: automated exposure control; mA and/or kV adjustment per patient size (includes targeted exams where dose is matched to clinical indication); or iterative reconstruction. COMPARISON: CT Angio Chest 10/03/2021 10:53 AM FINDINGS: Pulmonary arteries: No pulmonary embolus or aortic dissection. Great vessels off aortic arch: Normal variant common origin of the left common carotid artery and innominate artery consistent with bovine arch. Aorta: Calcification of the abdominal aorta and/or iliac arteries consistent with atherosclerotic vessel disease. Lungs: Left basilar discoid atelectasis and/or scarring. Mild left posterior basilar pneumonia. Pleural spaces: Unremarkable. No pneumothorax. No pleural effusion. Heart: Unremarkable. No cardiomegaly. No pericardial effusion. Coronary arteries: Severe calcified coronary artery disease. Lymph nodes: Unremarkable. No enlarged lymph nodes. Diaphragm: Mild to moderate hiatal hernia. Gallbladder and biliary ducts: Stable cholecystectomy. Bones/joints: Unremarkable. No acute fracture. Soft tissues: Unremarkable. IMPRESSION: 1. Severe calcified coronary artery disease. 2. Mild to moderate hiatal hernia. 3. No pulmonary embolus or aortic dissection. 4. Mild left posterior basilar pneumonia. Electronically signed by: Sachin Tomlinson MD, [employer], 11/28/2023 1:54 Sachin Tomlinson MD Signed 08/28/24 01:54:37 (Electronic Signature) Technologist UDAY * Exam Date Time Procedure Performing Provider Status 11/28/23 1:01 AM XR Chest 1 View Cindy PAPPASAggie herson (Verified) Notes: (XR Chest 1 View) Reason For Exam: Chest Pain REPORT XR Chest 1 View PROCEDURE INFORMATION: Exam: XR Chest Exam date and time: 11/27/2023 10:29 PM Age: 43 years old Clinical indication: Chest pain TECHNIQUE: Imaging protocol: Radiologic exam of the chest. Views: 1 view. COMPARISON: CR XR Chest PA Lateral Left Routine 04/03/2022 7:05 PM FINDINGS: Lungs: Mild bibasilar pneumonia. Pleural spaces: Unremarkable. No pleural effusion. No pneumothorax. Heart/Mediastinum: Unremarkable. No cardiomegaly. Bones/joints: Unremarkable. IMPRESSION: Mild bibasilar pneumonia. Electronically signed by: Sachin Tomlinson MD, [employer], 11/28/2023 1:48 Sachin Tomlinson MD Signed 11/28/23 01:48:34 (Electronic Signature) Technologist JENNIFER Vital Signs Most recent to oldest [Reference Range]: 1 2 3 Blood Pressure 116/83 (11/28/23 1:15 AM) 136/87 (11/28/23 1:00 AM) 138/94 (11/28/23 12:45 AM) Height (inches) (Clinical) 71 in (11/27/23 10:27 PM) Weight (kg) (Clinical) 105.9 kg (11/27/23 10:27 PM) BMI (Clinical) 32.5 kg/m2 (11/27/23 10:27 PM) Social History Social History Type Response Smoking Status Current every day sm oker; Smokeless tobacco use: Never; Has the patient smoked in the last 365 days, even once? Yes; Tobacco use per day: 4 or less cigarettes(less than 1/4 pack)/day in last 30 days; Started at age: 18; entered on: 07/06/23 Sex Male Hospital Discharge Instructions Patient Education 11/28/2023 02:34:23 Community-Acquired Pneumonia, Adult, Pgbc-[facility] Community-Acquired Pneumonia, Adult Pneumonia is an infection of the lungs. It causes irritation and swelling in the airways of the lungs. Mucus and fluid may also build up inside the airways. This may cause coughing and trouble breathing. One type of pneumonia can happen while you are in a hospital. A different type can happen when you are not in a hospital (community-acquired pneumonia). What are the causes? This condition is caused by germs (viruses, bacteria, or fungi). Some types of germs can spread from person to person. Pneumonia is not thought to spread from person to person. What increases the risk? You have a long-term (chronic) disease, such as: ??? Disease of the lungs. This may be chronic obstructive pulmonary disease (COPD) or asthma. ??? Heart failure. ??? Cystic fibrosis. ??? Diabetes. ??? Kidney disease. ??? Sickle cell disease. ??? HIV. ??? You have other health problems, such as: ??? Your body's defense system (immune system) is weak. ??? A condition that may cause you to breathe in fluids from your mouth and nose. ??? You had your spleen taken out. ??? You do not take good care of your teeth and mouth (poor dental hygiene). ??? You use or have used tobacco products. ??? You go where the germs that cause this illness are common. ??? You are older than 65 years of age. What are the signs or symptoms? A cough. ??? A fever. ??? Sweating or chills. ??? Chest pain, often when you breathe deeply or cough. ??? Breathing problems, such as: ??? Fast breathing. ??? Trouble breathing. ??? Shortness of breath. ??? Feeling tired (fatigued). ??? Muscle aches. How is this treated? Treatment for this condition depends on many things, such as: ??? The cause of your illness. ??? Your medicines. ??? Your other health problems. Most adults can be treated at home. Sometimes, treatment must happen in a hospital. ??? Treatment may include medicines to kill germs. ??? Medicines may depend on which germ caused your illness. Very bad pneumonia is rare. If you get it, you may: ??? Have a machine to help you breathe. ??? Have fluid taken away from around your lungs. Follow these instructions at home: Medicines ??? Take wuoy-ple-pbkpgjr and prescription medicines only as told by your doctor. ??? Take cough medicine only if you are losing sleep. Cough medicine can keep your body from takingmucus away from your lungs. ??? If you were prescribed antibiotics, take them as told by your doctor. Do not stop taking them even if you start to feel better. Lifestyle ??? Do not smoke or use any products that contain nicotine or tobacco. If you need help quitting, ask your doctor. ??? Do not drink alcohol. ??? Eat a healthy diet. This includes a lot of vegetables, fruits, whole grains, low-fat dairy products, and low-fat (lean) protein. General instructions ??? Rest a lot. Sleep for at least 8 hours each night. ??? Sleep with your head and neck raised. Put a few pillows under your head or sleep in a recliningchair. ??? Return to your normal activities as told by your doctor. Ask your doctor what activities are safe for you. ??? Drink enough fluid to keep your pee (urine) pale yellow. ??? If your throat is sore, gargle with a mixture of salt and water 3???4 times a day or as needed.To make salt water, completely dissolve ?1 tsp (3???6 g) of salt in 1 cup (237 mL) of warm water. ??? Keep all follow-up visits. How is this prevented? Getting the pneumonia shot (vaccine). These shots have different types and schedules. Ask your doctor what works best for you. Think about getting this shot if: ??? You are older than 65 years of age. ??? You are 19???65 years of age and: ??? You are being treated for cancer. ??? You have long-term lung disease. ??? You have other problems that affect your body's defense system. Ask your doctor if you have oneof these. ??? Getting your flu shot every year. Ask your doctor which type of shot is best for you. ??? Going to the dentist as often as told. ??? Washing your hands often with soap and water for at least 20 seconds. If you cannot use soap and water, use hand sample maker original. Contact a doctor if: ??? You have a fever. ??? You lose sleep because your cough medicine does not help. Get help right away if: ??? You are short of breath and this gets worse. ??? You have more chest pain. ??? Your sickness gets worse. This is very serious if: ??? You are an older adult. ??? Your body's defense system is weak. ??? You cough up blood. These symptoms may be an emergency. Get help right away. Call 911. ??? Do not wait to see if the symptoms will go away. ??? Do not drive yourself to the hospital. Summary ??? Pneumonia is an infection of the lungs. ??? Community-acquired pneumonia affects people who have not been in the hospital. Certain germs can cause this infection. ??? This condition may be treated with medicines that kill germs. ??? For very bad pneumonia, you may need a hospital stay and treatment to help with breathing. This information is not intended to replace advice given to you by your health care provider. Make sure you discuss any questions you have with your health care provider. Document Revised: 05/17/2022 Document Reviewed: 05/17/2022 [employer] Patient Education ?? 2023 [employer]. Follow Up Care 11/27/2023 22:23:52 With:Anna Roach Address: [address] [address]- Business (1) When:5 to 7 days Comments:You have been seen in the Emergency Department today. Please ensure that any questions you have about your workup are answered before you leave. Based on your evaluation today, we feel that you may be discharged home. It's very important that patients that are seen in the Emergency Department follow up for outpatient evaluation within from 3-5 days for a recheck. The Emergency Department is intended to evaluate individuals that require emergent care to stabilize serious traumatic injuries or potentially life threatening illness. It is not intended to be global or definitive health care, therefore follow up is very important. Follow Up: Call the physician indicated on this discharge paperwork for a timely follow up appointment. If you have a Primary Care Doctor, call them right away as well to discuss your ED visit, any ongoing symptoms and to schedule a follow up appointment. If you DO have a Primary Care Provider, fady them right away to let them know about your ED Visits..Please review your labs and imaging results with your PCP - to include any incidental findngs that might need further outpatient work up. We aren't always able to find a diagnosis in the Emergency Department as our ability to evaluate patients is limited in scope and sometimes it takes time for serious illnessto evolve and it's important that you return to the Emergency Department for re-evaluation if you worsen or even if you have general concern. Take all medication as prescribed XR Chest Single view * Sachin Tomlinson MD: PERFORM, VERIFY, VERIFY Event Display: Report Authored Date: [id number] Note * Sachin Tomlinson MD: PERFORM, VERIFY, VERIFY Event Display: Powers[employer] Read Authored Date: [id number] PROCEDURE INFORMATION: Exam: CTA Chest With Contrast Exam date and time: 11/28/2023 1:45 AM Age: 43 years old Clinical indication: Chest pain, history of ascending aortic aneurysm TECHNIQUE: Imaging protocol: Computed tomographic angiography of the chest with contrast. Exam focused on the arteries. 3D rendering (Not supervised by radiologist): MIP and/or 3D reconstructed images were created by the technologist. Radiation optimization: All CT scans at this facility use at least one of these dose optimization techniques: automated exposure control; mA and/or kV adjustment per patient size (includes targeted exams where dose is matched to clinical indication); or iterative reconstruction. COMPARISON: CT Angio Chest 10/03/2021 10:53 AM FINDINGS: Pulmonary arteries: No pulmonary embolus or aortic dissection. Great vessels off aortic arch: Normal variant common origin of the left common carotid artery and innominate artery consistent with bovine arch. Aorta: Calcification of the abdominal aorta and/or iliac arteries consistent with atherosclerotic vessel disease. Lungs: Left basilar discoid atelectasis and/or scarring. Mild left posterior basilar pneumonia. Pleural spaces: Unremarkable. No pneumothorax. No pleural effusion. Heart: Unremarkable. No cardiomegaly. No pericardial effusion. Coronary arteries: Severe calcified coronary artery disease. Lymph nodes: Unremarkable. No enlarged lymph nodes. Diaphragm: Mild to moderate hiatal hernia. Gallbladder and biliary ducts: Stable cholecystectomy. Bones/joints: Unremarkable. No acute fracture. Soft tissues: Unremarkable. IMPRESSION: 1. Severe calcified coronary artery disease. 2. Mild to moderate hiatal hernia. 3. No pulmonary embolus or aortic dissection. 4. Mild left posterior basilar pneumonia. Electronically signed by: Sachin Tomlinson MD, [employer], 11/28/2023 1:54 Sachin Tomlinson MD Signed 11/28/23 01:54:37 (Electronic Signature) Technologist UDAY * Sachin Tomlinson MD: PERFORM, VERIFY, VERIFY Event Display: Powerscribe Read Authored Date: [id number] PROCEDURE INFORMATION: Exam: XR Chest Exam date and time: 11/27/2023 10:29 PM Age: 43 years old Clinical indication: Chest pain TECHNIQUE: Imaging protocol: Radiologic exam of the chest. Views: 1 view. COMPARISON: CR XR Chest PA Lateral Left Routine 04/03/2022 7:05 PM FINDINGS: Lungs: Mild bibasilar pneumonia. Pleural spaces: Unremarkable. No pleural effusion. No pneumothorax. Heart/Mediastinum: Unremarkable. No cardiomegaly. Bones/joints: Unremarkable. IMPRESSION: Mild bibasilar pneumonia. Electronically signed by: Sachin Tomlinson MD, [employer], 11/28/2023 1:48 Sachin Tomlinson MD Signed 11/28/23 01:48:34 (Electronic Signature) Technologist JN CTA Chest vessels * Sachin Tomlinson MD: PERFORM, VERIFY, VERIFY Event Display: Report Authored Date: [id number] Cardiology * Pavel Farias MD: SIGN, VERIFY Event Display: EKG 12-Lead Authored Date: [id number] Patient Care team information Care Team Related Persons Name: JOSE LUIS GUTIERREZ Name: MOODY WORKMAN Address: home [address] [place] [phone] [place] [address] Address: mailing [address] [place] [phone] [place] [address]
--- NOTE | 2024-01-18 12:34 | PC.NURSE ---
arrived from [facility] via EMS, AO x4 and cooperative
--- NOTE | 2024-01-18 12:35 | PC.NURSE ---
arrived with heparin drip at 20 mls/hr and nitro drip at 15 mcg/min both from [facility]
[2024-01-18] MEDS: ondansetron 2 mg/ML SDV 2 mL 4 MG IVP ×2 (12:45→19:53)
[2024-01-18] MEDS: nitroglycerin drip 50 MG/250 ML PREMIX IV (12:47)
--- NOTE | 2024-01-18 12:57 | USCV_ITS ---
Jovanny Rico Age: 43 Gender: M : 1980 Exam Date: 01/18/2024 16:43 Ordering Phys: Jt De La Torre MD Technologist: Bright Mcclure [place] [facility] [place]: chest pain BP: 136 / 89 HR: 72 Rhythm: Sinus Technical Quality: Adequate MEASUREMENTS (Male / Female) Normal Values 2D ECHO LV Diastolic Diameter PLAX 3.4 cm 4.2 - 5.9 / 3.9 - 5.3 cm IVS Diastolic Thickness 1.2 cm 0.6 - 1.0 / 0.6 - 0.9 cm IVS Systolic Thickness 1.6 cm LVPW Diastolic Thickness 1.5 cm 0.6 - 1.0 / 0.6 - 0.9 cm LVPW Systolic Thickness 2.3 cm LVOT Diameter 2.3 cm LV Ejection Fraction 2D Teich 61.4 % LV Ejection Fraction MOD 4C 80.8 % LV Ejection Fraction MOD 2C 77.7 % LV Ejection Fraction 2C AL 77.1 % LA Diameter 3.9 cm RA Systolic Volume 4C AL 32.1 ml RA Systolic Volume 4C MOD 32.2 ml LA Sys Volume AL 60.7 cm cubed LA Sys Volume Index AL 25.9 cm cubed/m squared Aorta at Sinotubular Diameter 3.4 cm M-MODE LA Ao Ratio MM 1.1 AV Cusp Separation MM 2.2 cm DOPPLER MV Peak Velocity 72.7 cm/s MV Area PHT 3.4 cm squared Mitral E to A Ratio 1.0 TV Peak Velocity 324.7 cm/s TR Peak Velocity 375.0 cm/s TR Peak Gradient 56.3 mmHg TR Mean Velocity 320.0 cm/s TR Mean Gradient 42.4 mmHg TR Velocity Time Integral 95.0 cm PV Peak Velocity 131.8 cm/s RV Ejection Time 0.3 s FINDINGS Left Ventricle Normal left ventricular size, systolic function and wall thickness, with no regional wall motion abnormalities. Left ventricular ejection fraction is estimated at 60 %. Normal diastolic function. Right Ventricle The right ventricle is normal in size and function. Right Atrium The right atrium is normal in size. Left Atrium The left atrium is normal in size. Mitral Valve Structurally normal mitral valve without significant stenosis or prolapse. There is no mitral regurgitation. Aortic Valve Structurally normal aortic valve without significant sclerosis or stenosis. There is no aortic regurgitation. Tricuspid Valve Structurally normal tricuspid valve without significant stenosis or regurgitation. Pulmonic Valve Structurally normal pulmonic valve without significant stenosis. There is no pulmonic regurgitation. Pericardium Normal pericardium without effusion. Aorta Normal ascending aorta dimension. IVC The inferior vena cava appears normal. CONCLUSIONS Normal left ventricular size, systolic function and wall thickness, with no regional wall motion abnormalities. Left ventricular ejection fraction is estimated at 60 %. Normal diastolic function. No significant valve abnormalities. There is no pericardial effusion. Right atrial pressure is around 5 mm of mercury. Jesus Franco MD (Electronically Signed) Final Date: 18 January 2024 19:04 S
--- NOTE | 2024-01-18 12:58 | ECG_ITS ---
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
--- NOTE | 2024-01-18 13:12 | PM.HP ---
Documented by User: Darling MauraGIGI turner [facility] 01/18/24 14:05 Providers/Chief Complaint Admitting Physician: Jt De La Torre MD Primary Care Provider: Anna Roach MD Chief Complaint: Unstable Angina History of Present Illness Jovanny Rico is a 43 year old male with PMH of GERD, Aortic aneurysm, HTN, COPD, hypercholesterolemia, back pain, history of colon cancer, CAD, anxiety/depression and urolithiasis, presents today with central chest pain that radiates up toward the left neck and left arm. Patient reports that he was woken up at 12:55pm last night with chest pain with palpitations and dyspnea that did not go away despite resting and taking nitroglycerin. Patient reports he has chest pain often up to 5 times a day secondary to his unstable angina and takes nitroglycerin up to 5x timeS in a week to combat his symptoms. Patient reports nausea and headache located in bilateral temples. Patient denies heartburn, numbness or tingling in legs, abdominal pain, black or tarry stool. Patient was transferred from [facility] and was recently treated in October for pneumonia. Patient does not appear to be in apparent distress with normal respiratory rate. Review of Systems General: Reports: 10 or more systems reviewed and unremarkable except in HPI and below Medications/Allergies Home Medications Medication Instructions Recorded Confirmed Last Taken Type hydralazine 10 mg tablet 10 mg PO TID PRN hypertension #30 07/16/23 12/10/23 Unknown Rx tabs nitroglycerin 0.4 mg sublingual 0.4 mg sublingual Q5M PRN Chest 07/16/23 12/10/23 Unknown Rx tablet Pain #25 tabs aspirin 81 mg tablet,delayed 81 mg PO DAILY 90 days #60 tabs 09/10/23 12/10/23 Unknown Rx release dicyclomine 20 mg tablet 20 mg PO TID PRN esophageal spasm 09/10/23 12/10/23 Unknown Rx #30 tabs duloxetine 60 mg capsule,delayed 60 mg PO DAILY 90 days #90 caps 09/10/23 12/10/23 Unknown Rx release (Cymbalta) ondansetron 4 mg disintegrating 4 mg PO BID PRN nausea and 09/10/23 12/10/23 Unknown Rx tablet vomiting #30 tabs amlodipine 5 mg tablet 5 mg PO DAILY 90 days #90 tabs 12/10/23 12/10/23 Unknown Rx atorvastatin 80 mg tablet 80 mg PO BEDTIME #90 tabs 12/10/23 12/10/23 Unknown Rx clopidogrel 75 mg tablet 75 mg PO DAILY 90 days #90 tabs 12/10/23 12/10/23 Unknown Rx gabapentin 600 mg tablet 600 mg PO TID PRN Pain 90 days 12/10/23 12/10/23 Unknown Rx #270 tabs isosorbide mononitrate 30 mg 30 mg PO QAM #90 tabs 12/10/23 12/10/23 Unknown Rx tablet,extended release 24 hr isosorbide mononitrate 60 mg 60 mg PO DAILY #90 tabs 12/10/23 12/10/23 Unknown Rx tablet,extended release 24 hr losartan 25 mg tablet 25 mg PO DAILY 90 days #90 tabs 12/10/23 12/10/23 Unknown Rx pantoprazole 40 mg tablet,delayed 40 mg PO BID 90 days #180 tabs 12/10/23 12/10/23 Unknown Rx release (Protonix) Allergies Allergy/AdvReac Type Severity Reaction Status Date / Time No Known Allergies Allergy Verified 12/10/23 08:26 PFSH Acute PFSH: Medical History Unstable angina Aorta aneurysm Chest pain Colon polyp Gastritis and duodenitis Eli esophagus Dilated aortic root Urolithiasis LAURA (generalized anxiety disorder) GERD (gastroesophageal reflux disease) Cervical radiculopathy HTN (hypertension) Dyslipidemia Gross hematuria Staghorn calculus Atherosclerosis of coronary artery Presence of stent in LAD coronary artery Central apnea Tobacco use Gastroesophageal reflux disease COPD (chronic obstructive pulmonary disease) Depression Surgical History Status post laser lithotripsy of ureteral calculus S/P ureteral stent placement Hx of heart artery stent H/O colonoscopy with polypectomy History of cholecystectomy Family History Father Heart disease Alcoholic Lung disease Mother Healthy adult Social History Smoking and tobacco/nicotine status: current every day tobacco/nicotine user cigarettes Packs smoked per day: 0.5 Years cigarettes smoked: 20 Alcohol intake: current Alcohol intake frequency: holidays/special occasions only Substance/Drug Use: never Marital status: Current occupational status: unemployed Vitals/I&O/Wt Last Vital Signs Pulse 63 01/18/24 13:09 BP 111/87 01/18/24 13:09 Pulse Ox 100 01/18/24 13:09 O2 Del Method Room Air 01/18/24 12:58 01/17/24 01/18/24 01/18/24 22:59 06:59 14:59 Intake Total 0.525 / 0.525 Balance 0.525 / 0.525 Physical Exam Narrative: Patient in a middle age white male, in no apparent distress HENMT: normocephalic, atraumatic Eye: PERRL, EOMs intact, anicteric sclera Neck: Supple without thyromegaly or lymphadenopathy Resp: Bilateral breath sounds, clear to auscultation, normal chest wall expansion Cardio: Normal rate and rhythm without murmurs, rubs, gallops GI: soft, nondistended, nontender, with normal bowel sounds : deferred Extremity: No edema or cyanosis Data 01/18/24 13:10 A&P Assessment and plan (1) Unstable angina: Patient presents with chest pain with palpitations and dyspnea that occur at rest and not improved by nitroglycerin Patient has history of unstable angina Patient was transferred from [facility] Ordered serial EKGs, ordered echo Ordered troponins and BNP Ordered CBC and BMP with Mg, platelets normal Cardiology consultation Continue NPO secondary for future need of possible procedure Give morphine 2mg q4 PRN, Tylenol PRN Titrate nitroglycerin drip 50mg Start on heparin drip O2 therapy PRN Zofran PRN for nausea Give lipitor Continue aspirin Plan Multiple other medical conditions as noted by history HTN: hold antihypertensives, continue to monitor blood pressure Full code Heparin for DVT PPX Protonix for GI PPX Coding Level of Care Code 24444 Diagnoses Unstable angina I20.0 Time Spent (min) 57 Documented by User: Jt De La Torre MD 01/18/24 14:07 Providers/Chief Complaint Chief Complaint: Unstable Angina History of Present Illness Jovanny Rico is a 43 year old male with PMH of GERD, Aortic aneurysm, HTN, COPD, hypercholesterolemia, back pain, history of colon cancer, CAD, anxiety/depression and urolithiasis, presents today with central chest pain that radiates up toward the left neck and left arm. Patient reports that he was woken up at 12:55pm last night with chest pain with palpitations and dyspnea that did not go away despite resting and taking nitroglycerin. Patient reports he has chest pain often up to 5 times a day secondary to his unstable angina and takes nitroglycerin up to 5x times in a week to combat his symptoms. Patient reports nausea and headache located in bilateral temples. Patient denies heartburn, numbness or tingling in legs, abdominal pain, black or tarry stool. Patient was transferred from [facility] and was recently treated in October for pneumonia. Patient does not appear to be in apparent distress with normal respiratory rate. He reports he continues to have chest discomfort and the nitroglycerin drip that he is on has not yet alleviated his discomfort. At [facility] he also was placed on a heparin drip. He received morphine for his pain. Medications/Allergies Home Medications Medication Instructions Recorded Confirmed Last Taken Type hydralazine 10 mg tablet 10 mg PO TID PRN hypertension #30 07/16/23 12/10/23 Unknown Rx tabs nitroglycerin 0.4 mg sublingual 0.4 mg sublingual Q5M PRN Chest 07/16/23 12/10/23 Unknown Rx tablet Pain #25 tabs aspirin 81 mg tablet,delayed 81 mg PO DAILY 90 days #60 tabs 09/10/23 12/10/23 Unknown Rx release dicyclomine 20 mg tablet 20 mg PO TID PRN esophageal spasm 09/10/23 12/10/23 Unknown Rx #30 tabs duloxetine 60 mg capsule,delayed 60 mg PO DAILY 90 days #90 caps 09/10/23 12/10/23 Unknown Rx release (Cymbalta) ondansetron 4 mg disintegrating 4 mg PO BID PRN nausea and 09/10/23 12/10/23 Unknown Rx tablet vomiting #30 tabs amlodipine 5 mg tablet 5 mg PO DAILY 90 days #90 tabs 12/10/23 12/10/23 Unknown Rx atorvastatin 80 mg tablet 80 mg PO BEDTIME #90 tabs 12/10/23 12/10/23 Unknown Rx clopidogrel 75 mg tablet 75 mg PO DAILY 90 days #90 tabs 12/10/23 12/10/23 Unknown Rx gabapentin 600 mg tablet 600 mg PO TID PRN Pain 90 days 12/10/23 12/10/23 Unknown Rx #270 tabs isosorbide mononitrate 30 mg 30 mg PO QAM #90 tabs 12/10/23 12/10/23 Unknown Rx tablet,extended release 24 hr isosorbide mononitrate 60 mg 60 mg PO DAILY #90 tabs 12/10/23 12/10/23 Unknown Rx tablet,extended release 24 hr losartan 25 mg tablet 25 mg PO DAILY 90 days #90 tabs 12/10/23 12/10/23 Unknown Rx pantoprazole 40 mg tablet,delayed 40 mg PO BID 90 days #180 tabs 12/10/23 12/10/23 Unknown Rx release (Protonix) Allergies Allergy/AdvReac Type Severity Reaction Status Date / Time No Known Allergies Allergy Verified 12/10/23 08:26 PFSH Acute PFSH: Medical History Unstable angina Aorta aneurysm Chest pain Colon polyp Gastritis and duodenitis Eli esophagus Dilated aortic root Urolithiasis LAURA (generalized anxiety disorder) GERD (gastroesophageal reflux disease) Cervical radiculopathy HTN (hypertension) Dyslipidemia Gross hematuria Staghorn calculus Atherosclerosis of coronary artery Presence of stent in LAD coronary artery Central apnea Tobacco use Gastroesophageal reflux disease COPD (chronic obstructive pulmonary disease) Depression Surgical History Status post laser lithotripsy of ureteral calculus S/P ureteral stent placement Hx of heart artery stent H/O colonoscopy with polypectomy History of cholecystectomy Family History Father Heart disease Alcoholic Lung disease Mother Healthy adult Social History Smoking and tobacco/nicotine status: current every day tobacco/nicotine user cigarettes Packs smoked per day: 0.5 Years cigarettes smoked: 20 Alcohol intake: current Alcohol intake frequency: holidays/special occasions only Substance/Drug Use: never Marital status: Current occupational status: unemployed Data 01/18/24 13:10 Other Labs: Labs from [facility] indicate a normal D-dimer, normal troponin, white blood count is 9.6, hemoglobin 16.3, platelet count of 292. BUN 13, creatinine 0.7, glucose 126, sodium 140, potassium 4.0, chloride 107, bicarb 27, calcium 9.3. Chest x-ray demonstrates subsegmental atelectasis left lung, otherwise normal EKG from outlying hospital which I reviewed demonstrates sinus rhythm, normal axis, nonspecific ST-T wave flattening. A&P Assessment and plan (1) Unstable angina: Patient presents with chest pain with palpitations and dyspnea that occur at rest and not improved by nitroglycerin Concern with continued chest discomfort representing unstable angina. However, patient also has a history of chronic chest discomfort requiring frequent nitroglycerin. Last angiogram was [address] Romo with balloon angioplasty followed by stent placement LAD. Patient was transferred from [facility] Ordered serial EKGs, ordered echo Ordered troponins reviewed outside lab Cardiology consultation Continue NPO secondary for future need of possible procedure Give morphine 2mg q4 PRN, Tylenol PRN Titrate nitroglycerin drip 50mg Continue heparin drip O2 therapy PRN Zofran PRN for nausea Continue statin, aspirin, Plavix, heparin. I do not see that he is on a beta-patrick. I am sure this has been tried in the past. He also has a history of dilated aortic root. This could be reconsidered if he is not significantly bradycardic. His heart rate is 63 on admission. Attestations Medical Necessity Statement*: Will need less than 2 midnight stay for evaluation and treatment of chest discomfort. Diagnoses Unstable angina I20.0 Time Spent (min) 57
[2024-01-18 13:19] LABS: Platelet Count 252 10^3/cmm (157-399)
[2024-01-18 13:45] LABS: Troponin(5th) Baseline 10 ng/L (0-15)
[2024-01-18] MEDS: heparin drip 25,000 UNIT/500 ML PREMIX 20 UNIT IV (14:11)
--- NOTE | 2024-01-18 14:58 | ECG_ITS ---
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
[2024-01-18 16:01] LABS: Troponin 5 2HR 9.16 ng/L (0-15)
[2024-01-18 16:02] LABS: Troponin 5 2HR Delta -0.84 ABS# (0-10)
--- NOTE | 2024-01-18 16:13 | P.CONIM_ITS ---
Providers/Reason For Consult 2 Consulting Physician/Specialty*: Dr. De La Torre Reason for Consult*: Chest pain Requesting Physician: Dr. De La Torre Attending Physician: Jt De La Torre MD Primary Care Provider: Anna Roach MD History of Present Illness History of Present Illness Jovanny Rico is a 43 year old male past medical history significant moderately dilated aorta on echocardiogram in 2021 history of Eli's esophagus and severe gastritis, depression hypertension hyperlipidemia coronary artery disease history of prior LAD stent has been complaining off-and-on chest pressure for the past 1 week, it appeared to be diffuse sometime as a heartburn other times he describes it as somebody sitting on the chest but not radiating to neck jaw, he was transferred from outside hospital to rule out for acute coronary syndrome. According the patient for the past few days he noticed worsening of shortness of breath along with chest pressure upon mild exertion and occasionally happens at rest. Today when pain began more frequent patient decided to go to outside hospital from where on the suspicion of unstable angina he was transferred to [facility], since admission patient troponin trends are negative: Twelve-lead EKG suggestive of sinus rhythm anterolateral T wave inversion cannot rule out ischemia however when compared to the prior EKG there is no interval change. Review of Systems 2 General: Reports: 10 or more systems reviewed and unremarkable except in HPI and below Musc: Denies: joint warmth Medications/Allergies Home Medications Medication Instructions Recorded Confirmed Last Taken Type hydralazine 10 mg tablet 10 mg PO TID PRN hypertension #30 07/16/23 01/18/24 Unknown Rx tabs nitroglycerin 0.4 mg sublingual 0.4 mg sublingual Q5M PRN Chest 07/16/23 01/18/24 Unknown Rx tablet Pain #25 tabs aspirin 81 mg tablet,delayed 81 mg PO DAILY 90 days #60 tabs 09/10/23 01/18/24 01/17/24 Rx release dicyclomine 20 mg tablet 20 mg PO TID PRN esophageal spasm 09/10/23 01/18/24 01/18/24 Rx #30 tabs duloxetine 60 mg capsule,delayed 60 mg PO DAILY 90 days #90 caps 09/10/23 01/18/24 01/18/24 Rx release (Cymbalta) ondansetron 4 mg disintegrating 4 mg PO BID PRN nausea and 09/10/23 01/18/24 Unknown Rx tablet vomiting #30 tabs amlodipine 5 mg tablet 5 mg PO DAILY 90 days #90 tabs 12/10/23 01/18/24 01/17/24 Rx atorvastatin 80 mg tablet 80 mg PO BEDTIME #90 tabs 12/10/23 01/18/24 01/17/24 Rx clopidogrel 75 mg tablet 75 mg PO DAILY 90 days #90 tabs 12/10/23 01/18/24 01/18/24 Rx gabapentin 600 mg tablet 600 mg PO TID PRN Pain 90 days 12/10/23 01/18/24 01/18/24 Rx #270 tabs isosorbide mononitrate 30 mg 30 mg PO QAM #90 tabs 12/10/23 01/18/24 01/17/24 Rx tablet,extended release 24 hr isosorbide mononitrate 60 mg 60 mg PO DAILY #90 tabs 12/10/23 01/18/24 01/17/24 Rx tablet,extended release 24 hr losartan 25 mg tablet 25 mg PO DAILY 90 days #90 tabs 12/10/23 01/18/24 01/17/24 Rx pantoprazole 40 mg tablet,delayed 40 mg PO BID 90 days #180 tabs 12/10/23 01/18/24 01/17/24 Rx release (Protonix) carvedilol 3.125 mg tablet 3.125 mg PO BID 01/18/24 01/18/24 Unknown History furosemide 20 mg tablet 20 mg PO DAILY 01/18/24 01/18/24 Unknown History mirtazapine 15 mg tablet 15 mg PO QPM 01/18/24 01/18/24 01/17/24 History Allergies Allergy/AdvReac Type Severity Reaction Status Date / Time No Known Allergies Allergy Verified 12/10/23 08:26 Current Medications Generic Name Dose Route Start Last Admin Trade Name Freq PRN Reason Stop Dose Admin Nitroglycerin/Dextrose 50 mg in 250 mls @ 0 mls/hr 01/18/24 12:45 01/18/24 14:06 Nitroglycerin Drip IV 30 mcg/min .Q0M POP 9 mls/hr Titration Protocol Per Protocol Heparin Sodium/Sodium Chloride 25,000 unit in 500 mls @ 0 mls/hr 01/18/24 12:45 01/18/24 14:11 Heparin Drip IV 9.5 unit/kg/hr CONT POP 20 mls/hr Administration Protocol Per Protocol Ondansetron HCl 4 mg 01/18/24 12:35 01/18/24 12:45 Ondansetron 2 Mg/Ml Sdv 2 Ml IVP 4 mg Q4H PRN Administration NAUSEA AND VOMITING PFSH Acute 2 PFSH: Medical History Unstable angina Aorta aneurysm Chest pain Colon polyp Gastritis and duodenitis Eli esophagus Dilated aortic root Urolithiasis LAURA (generalized anxiety disorder) GERD (gastroesophageal reflux disease) Cervical radiculopathy HTN (hypertension) Dyslipidemia Gross hematuria Staghorn calculus Atherosclerosis of coronary artery Presence of stent in LAD coronary artery Central apnea Tobacco use Gastroesophageal reflux disease COPD (chronic obstructive pulmonary disease) Depression Surgical History Status post laser lithotripsy of ureteral calculus S/P ureteral stent placement Hx of heart artery stent H/O colonoscopy with polypectomy History of cholecystectomy Family History Father Heart disease Alcoholic Lung disease Mother Healthy adult Social History Smoking and tobacco/nicotine status: current every day tobacco/nicotine user cigarettes Packs smoked per day: 0.5 Years cigarettes smoked: 20 Alcohol intake: current Alcohol intake frequency: holidays/special occasions only Substance/Drug Use: never Marital status: Current occupational status: unemployed Dietary Habits: Current diet type/program: regular Caffeine: Yes Caffeine intake frequency: carbonated beverages and coffee Exercise: Physical activity functional status: independent ambulation and normal ROM and activity Safety: Seatbelt use: always Home Safety: Working smoke detector in home: Yes Personal Safety: Do you feel safe at home: Yes Victim of physical abuse: No Victim of emotional abuse: No Victim of sexual abuse: No Would you like help information on resources?: No Vitals/I&O/Wt Last Vital Signs Pulse 68 01/18/24 16:08 Resp 17 01/18/24 16:00 BP 142/95 01/18/24 16:00 Pulse Ox 93 01/18/24 16:00 O2 Del Method Room Air 01/18/24 12:58 01/18/24 01/18/24 01/18/24 06:59 14:59 22:59 Intake Total 7.725 / 7.725 Balance 7.725 / 7.725 Weight last 48 hrs Weight 232 lb Physical Exam 2 Const: OTHER: GENERAL: Patient is alert, awake and oriented x3. HEART: Regular S1 and S2. No murmur, rub or gallop. LUNGS: Clear to auscultate bilaterally. ABDOMEN: Soft, nontender and nondistended. Positive bowel sounds. No guarding, rebound or tenderness. CENTRAL NERVOUS SYSTEM: Grossly nonfocal. EXTREMITIES: Lower extremities with out edema bilaterally. Data 01/18/24 13:10 A&P Assessment and plan (1) Unstable angina: Patient presentation is consistent with possible unstable angina since a chest pain-free and because there is no evidence of ongoing ischemia in the form of non-STEMI or STEMI therefore we will proceed with left heart catheterization tomorrow morning as he is chest pain-free, continue aspirin and statin beta- patrick heparin and nitroglycerin. If patient shows any signs symptoms of instability such ventriculostomy or hemodynamics we can adapt early invasive strategy. (2) HTN (hypertension): Well-controlled continue current management Qualifiers: Hypertension type: primary hypertension Qualified Code(s): I10 - Essential (primary) hypertension (3) Aorta aneurysm: History of aortic dilation root by echocardiogram will obtain echocardiogram currently corrected strips of pain is now heart suggestive of aortic dissection Qualifiers: Aortic location: thoracic aorta Presence of rupture: without rupture Qualified Code(s): I71.2 - Thoracic aortic aneurysm, without rupture (4) Gastritis: May benefit from PPI. Qualifiers: Chronicity: chronic Gastritis bleeding: without bleeding Gastritis type: unspecified gastritis Qualified Code(s): K29.50 - Unspecified chronic gastritis without bleeding Coding Level of Care Code Acute Code for [facility] Fwd Diagnoses Unstable angina I20.0 Primary hypertension I10 Hypertension type: primary hypertension Thoracic aortic aneurysm without rupture I71.2 Aortic location: thoracic aorta Presence of rupture: without rupture Gastritis K29.50 Chronicity: chronic Gastritis bleeding: without bleeding Gastritis type: unspecified gastritis
--- NOTE | 2024-01-18 18:58 | ECG_ITS ---
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
[2024-01-18 19:07] LABS: Partial Thromboplastin Time 36.5 SECONDS (23.9-36.7)
[2024-01-18 19:09] LABS: Troponin 5 6HR 9.48 ng/L (0-15); Troponin 5 6HR Delta -0.52 ng/L (0-12)
[2024-01-18] MEDS: heparin 5,000 unit/mL INJ 1 mL IVP (19:38)
[2024-01-18] MEDS: morphine 4 mg/mL SDV 1 mL 2 MG IVP (19:52)
[2024-01-19] VITALS (40 sets, daily range): BP systolic 102–160; BP diastolic 62–106; PULSE 61–96; RESP 12–24; TEMP 36.8–36.9; O2SAT 88–96
[2024-01-19 01:47] LABS: Basophils # 0.1 10^3/uL (0.0-0.1); Eosinophils # 0.6 10^3/uL (0.0-0.8); Eosinophils % 7.2 %; Hematocrit 45.2 % (37-53); Lymphocytes # 2.8 10^3/uL (0.8-4.8); Lymphocytes % 31.8 %; Mean Corpuscular HGB Conc 32.3 g/dL (30-55); Mean Corpuscular Hemoglobin 29.4 pg (27-33); Mean Corpuscular Volume 91.1 fl (82-101); Mean Platelet Volume 9.4 fL (7.4-10.4); Monocytes # 0.8 10^3/uL (0.2-0.9); Monocytes % 9.6 %; Neutrophils # 4.37 10^3/uL (1.8-7.7); Neutrophils % 50.1 %; Nucleated Red Blood Cells % 0 %; Platelet Count 249 10^3/cmm (157-399); Red Blood Count 4.96 10^6/uL (3.85-5.65); Red Cell Distribution Width 13.9 % (12.1-15.1); White Blood Count 8.74 10^3/uL (3.29-11.43)
[2024-01-19 02:00] LABS: Partial Thromboplastin Time 49.9 SECONDS (23.9-36.7)
[2024-01-19 02:10] LABS: Blood Urea Nitrogen 12 mg/dL (6-20); Calcium 8.2 mg/dL (8.5-10.5); Carbon Dioxide 27 mmol/L (22-29); Chloride 102 mmol/L (98-107); Creatinine Clr Calc Pharmacy 172.3812; Glomerular Filtration Rate 123.7 mL/min (90-130); Glucose 103 mg/dL (65-115); Magnesium 1.9 mg/dL (1.7-2.3); Osmolality Calculated 286 mOsm/kg (285-295); Sodium 138 mmol/L (136-145)
[2024-01-19] MEDS: heparin 5,000 unit/mL INJ 1 mL IVP (02:21)
[2024-01-19] MEDS: heparin drip 25,000 UNIT/500 ML PREMIX 26 UNIT IV (04:10)
--- NOTE | 2024-01-19 07:25 | XACV_ITS ---
Exam Room: [facility] Ht: 183 cm Wt: 105 kg BSA: 2.34 m2 Gender: Male : 1980 Any Known Allergies: No known allergies Exam Priority: Routine Procedure(s): Procedure Description: Diagnostic procedure Procedure Description: Coronary Angiography Procedure Description: Pressure Wire Salvador PAK; Diagnostic Cath Status: Urgent Conclusions 1. Left main: Large with luminal irregularity otherwise no significant stenosis LAD: Large-caliber ectatic aneurysmal vessel with patent previously placed mid LAD stent, before the stent there appeared to be 50% stenosis not significant by IFR Diagonal branch: Diffuse luminal irregularity with 20 to 40% stenosis no significant stenosis, it is a large-caliber vessel Left circumflex is a large-caliber aneurysmal vessel in the proximal segment without significant stenosis RCA: Moderate size and caliber vessel without significant stenosis IFR of mid LAD:: After equalizing the distal and proximal pressure of FFR wire proximal to the lesion in the aorta, mid LAD lesion was crossed with IFR wire. Spot IFR was performed which cannot be 1.0. It was normal. No significant ischemia noted.Left ventricular ejection fraction by ventriculogram was normal and 70% Left ventricle end-diastolic pressure was normal 7 mmHg. Recommendations * 1-Return to inpatient for close monitoring and routine cath care 2-Risk factor modification for secondary prevention 3-Statin and aspirin 81 mg life-long, if tolerated 4-Continue optimal medical management 5-Follow up with Dr. Franco in four weeks and your primary care in 10 days. Diagnostic RX Recommendation: medical therapy and/or counseling LV EDP: 7 mmHg Ventriculography Ejection Fraction: 70.0 % Left Ventriculography Findings: * Normal left ventricular and diastolic volume and ejection fraction. Pressures Phase:Rest AO : 100 / 84 ( 92 ) @ 9:24:00 AM 108 / 83 ( 95 ) @ 9:35:00 AM 119 / 75 ( 92 ) @ 9:54:00 AM 125 / 57 ( 83 ) @ 9:54:00 AM LV : 128 / -6 / 15 @ 9:53:00 AM 131 / -4 / 13 @ 9:54:00 AM 137 / -5 / 15 @ 9:54:00 AM Valves Phase:DefaultPhase AV : 17.0 @ 9:01:33 AM AV Mean Gradient: 10.0 @ 9:01:33 AM Clinical Evaluation EBL: 5mL-10mL Procedural Details Procedure Consent Obtained. Admit Source: In Patient. Pre-Procedure Time Out. Identified patient by full name and date of as verbalized by the patient/guarantor. Does the consent match the physician's order: Yes. Accurate & Complete Informed Consent: Yes. Inpatient/Outpatient History & Physical on Chart: Yes. If H&P is completed, is and addenduem needed: No; If yes, is the addendum complete: N/A. Visualize and Verify Site with Patient/Guarantor: N/A. Relevant Radiology Images available: N/A. Pre-op teaching completed and patient verbalized understanding. The risks, benefits, and alternatives of sedation and/or procedure were discussed by physician. The patient agrees to continue. Procedure started. [facility] Clinical Fraility Score: 3: Managing Well. [employer] Indications: Worsening Angina. Chest Pain Symptom Assessment: Typical Angina Symptoms. Cardiovascular Instability: Yes, if yes, Persistant Ischemic Symptoms. Correct patient, site and procedure confirmed by cath team. Current diagnosis: Chest Pain. PERRLA. 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 Lungs clear x 5 lobes. IV Site on Arrival: 20 gauge in the left anticubital. IV Fluids: 0.9% NaCl at KVO. 0 mL infused prior to cardiovascular lab director. Pre Procedural Pulses: right radial was 2+. Pre Procedural Pulses: bilateral dorsalis pedis was 2+. Oxygen started at 2liters/min via nasal canula. right groin was prepped with chloroprep then draped in the usual sterile fashion. right radial was prepped with chloroprep then draped in the usual sterile fashion. Physician notified. Baseline sample Acquired. HR: 76 BPM. Physician arrived. Physician scrubbed in. Immediate Pre-Procedure Time Out. Correct Patient: Yes; Correct Procedure: Yes; Correct Site: Yes; Correct Patient Position: Yes; Correct Supplies: Yes; Dried Flammable Prep: Yes; Blood Products Available: N/A;. Lidocaine 1% infiltrated to the right radial. Arterial access obtained. A 5 [place] Taco catheter in over wire. ACT drawn. Results 140 seconds. Therapeutic limits - pre-heparin administration 90-150 seconds and monitoring heparin during a vascular procedure >250 seconds. Multiple views taken of left coronary artery. Catheter redirected to the RCA. Multiple views taken of right coronary artery. Catheter out. 6 [place] XB 3.5 guide catheter was inserted over the wire. IFR guidewire was advanced through the guide catheter to lesion in the mid LAD. Fractional flow reserve measurements obtained. IFR Spot 1.0, IFR Pullback 1.0 - Mid LAD. Cine run performed of LCS. IFR Wire out. ACT drawn. Results 318 seconds. Therapeutic limits - pre-heparin administration 90-150 seconds and monitoring heparin during a vascular procedure >250 seconds. A 5 [place] Angled Pig catheter in over wire. EDP Sample taken: LV 128/-7,15; HR: 74 BPM; SpO2: 93%. LV gram performed in [place] @ 10 mL/second for a total of 30 mL. EDP Sample taken: LV 131/-5,13; HR: 79 BPM; SpO2: 95%. Pullback taken: LV 137/-6,15; AO 119/75(92); Mean: 10mmHg, Peak to Peak: 17mmHg, SEP: 18sec/min; HR: 75 BPM; SpO2: 94%. Catheter out. Catheter advanced across the LV. Physician scrubbed out. A TR Band was successful obtaining hemostatsis at the Right Radial artery insertion site. Post Procedure: Pulses reassessed and unchanged. PERRLA. 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 No VTE prophylaxis required. Medication's Wasted: Heparin = 1000 u. Medication's Wasted: Lidocaine 1% = 18 mL. Medication's Wasted: Nitro = 49.8 mg. Total IV fluids: 100 mL. Post-op diagnosis: Endothelial Dysfunction, Patent LAD stent. Complications: none. Estimated blood loss: 5mL-10mL. Responsiveness - Normal response to verbal stimuli; alert and oriented, PERRLA. Airway - Unaffected, no intervention required; spontaneous ventilation. Circulation: W/N/L, pulses unchanged. Nausea/Vomiting: No. Procedure completed. Patient transferred by bed to 1st floor. Vital chart was stopped. Access Site Site: Right Radial artery Sheath Size: 6 Fr Hemostasis Method: TR Band Hemostasis Success: Successful Procedure Medications Start: 8:10 AM Stop: 8:10 AM Medication: Benadryl Amount: 50 mg Route: I.V. Start: 8:10 AM Stop: 8:10 AM Medication: Versed Amount: 1 mg Route: I.V. Start: 8:10 AM Stop: 8:10 AM Medication: Fentanyl Amount: 50 mcg Route: I.V. Start: 8:16 AM Stop: 8:16 AM Medication: Versed Amount: 1 mg Route: I.V. Start: 8:16 AM Stop: 8:16 AM Medication: Fentanyl Amount: 25 mcg Route: I.V. Start: 8:19 AM Stop: 8:19 AM Medication: Nitrogylcerin Amount: 200 mcg Route: I.A. Start: 8:26 AM Stop: 8:26 AM Medication: Heparin Amount: 5000 units Route: I.V. Start: 8:32 AM Stop: 8:32 AM Medication: Heparin Amount: 5000 units Route: I.V. Start: 8:42 AM Stop: 8:42 AM Medication: Fentanyl Amount: 25 mcg Route: I.V. I, the attending physician, have reviewed and verified all procedure medications. Yes, all medications given per verbal order History/Risk Factors Hypertension: Yes Dyslipidemia: Yes Peripheral Arterial Disease (PAD): No Myocardial Infarction (SD): No Obesity: Yes Renal Disease: No Tobacco Use: Current/Recent(w/in 1 year) Prior Interventions PCI: Yes Valve Surgery: No Date of PCI: 04/11/2021 Report Signatures Finalized by Jesus Franco MD on 01/19/2024 03:04 PM
--- NOTE | 2024-01-19 08:10 | W.PM.OPSUD ---
Surgery/Procedure H&P Update DATE OF PROCEDURE: January 19, 2024 DATE H&P PERFORMED: 01/18/24 H&P UPDATE INFORMATION: I have reviewed H&P completed within last 30 days, I have examined patient prior to procedure and No changes to prior documentation PREOP DIAGNOSIS: Chest pain suggestive of unstable angina PRIMARY INDICATION FOR PROCEDURE: Chest pain suggestive of unstable angina History of coronary artery disease with prior stent Uncontrolled chest pain PHYSICAL EXAM: alert, oriented x 3, clear to auscultation bilaterally, regular rate & rhythm and operative site marked AIRWAY EVAL/ANESTHESIA PLAN: ASA II, Risks, benefits & alternatives of sedation and/or procedure discussed and Patient agrees to continue as planned ADDITIONAL INFORMATION: Mallampati 2
--- NOTE | 2024-01-19 09:28 | PC.NURSE ---
pt arrived back on floor from cardiac cath lab radiology technologist at 0911 with TR band with 16ml of air in place. No hematoma noted. Report taken from Jay Renee RN. Vital signs WNL. Dr. Franco told nurse patient could leave in 3 hours.
[2024-01-19] MEDS: clopidogrel 300 mg Tablet PO (10:45)
[2024-01-19] MEDS: pantoprazole DR 40 mg Tablet PO (10:46)
[2024-01-19 10:54] LABS: Partial Thromboplastin Time 223.9 SECONDS (23.9-36.7)
--- NOTE | 2024-01-19 11:01 | PM.PN ---
Subjective Subjective: Denies more chest pain status post left heart catheterization shows patent previously placed LAD stent there appeared to be moderate LAD proximal lesion before the stent which is 50% negative by IFR. Patient has ectatic aneurysmal dilation of the LAD and circumflex, ejection fraction was hyperdynamic 70%. Left ventricular end-diastolic pressure was within normal limit. Vitals/I&O/Wt Last Vital Signs Temp 98.2 F 01/19/24 07:38 Pulse 82 01/19/24 09:15 Resp 18 01/19/24 09:15 BP 104/83 01/19/24 09:15 Pulse Ox 88 L 01/19/24 09:15 O2 Del Method Room Air 01/19/24 07:38 01/18/24 01/19/24 01/19/24 22:59 06:59 14:59 Intake Total 171.817 / 179.542 656.333 / 835.875 Output Total 250 / 250 350 / 600 Balance -78.183 / -70.458 306.333 / 235.875 Weight last 48 hrs Weight 232 lb 12.93 oz Weight 232 lb Physical Exam Const: COMMON NORMALS: alert OTHER: GENERAL: Patient is alert, awake and oriented x3. HEART: Regular S1 and S2. No murmur, rub or gallop. LUNGS: Clear to auscultate bilaterally.. CENTRAL NERVOUS SYSTEM: Grossly nonfocal. EXTREMITIES: Lower extremities with out edema bilaterally. Resp: COMMON NORMALS: clear to auscultation bilaterally AUSCULTATION: clear to auscultation bilaterally Neuro: SENSORIUM/ORIENTATION: Yes alert Data 01/19/24 01:41 01/19/24 01:41 A&P Assessment and plan (1) Unstable angina: Status post left heart catheterization noted to have nonobstructive coronary artery disease with patent previously placed mid LAD stent, IFR was negative for ischemia of mid LAD, 50% proximal LAD lesion was also noted just before the stent. Patient has ectatic aneurysmal vessels, he has endothelial dysfunction with sluggish flow in the LAD. Advise quitting chewing tobacco aggressive cholesterol control. Continue dual antiplatelet therapy, continue isosorbide mononitrate 60 mg twice daily. Continue clopidogrel aspirin statin at the time of discharge. (2) HTN (hypertension): Continue medical management Qualifiers: Hypertension type: primary hypertension Qualified Code(s): I10 - Essential (primary) hypertension (3) Aorta aneurysm: No significant aortic root dilatation noted on echocardiogram. Continue aspirin and statin and good blood pressure control Qualifiers: Aortic location: thoracic aorta Presence of rupture: without rupture Qualified Code(s): I71.2 - Thoracic aortic aneurysm, without rupture (4) Gastritis: May benefit from PPI. Qualifiers: Chronicity: chronic Gastritis bleeding: without bleeding Gastritis type: unspecified gastritis Qualified Code(s): K29.50 - Unspecified chronic gastritis without bleeding Attestations Medical Necessity Statement*: From cardiovascular perspective patient can be discharged home, please Coding Level of Care Code Acute Code for [facility] Fwd Diagnoses Unstable angina I20.0 Primary hypertension I10 Hypertension type: primary hypertension Thoracic aortic aneurysm without rupture I71.2 Aortic location: thoracic aorta Presence of rupture: without rupture Gastritis K29.50 Chronicity: chronic Gastritis bleeding: without bleeding Gastritis type: unspecified gastritis
--- NOTE | 2024-01-19 15:24 | P.DS_ITS ---
Discharge Providers Date of Admission: 01/18/24 12:18 Date of Discharge: January 19, 2024 Attending Provider at Admission: Jt De La Torre MD Attending Provider at Discharge: Evie Hopkins MD Primary Care Provider: Anna Roach MD Diagnoses at Discharge Discharge Diagnosis (1) Unstable angina: Status: Resolved (2) HTN (hypertension): Status: Acute Qualifiers: Hypertension type: primary hypertension Qualified Code(s): I10 - Essential (primary) hypertension (3) Aorta aneurysm: Status: Acute Qualifiers: Aortic location: thoracic aorta Presence of rupture: without rupture Qualified Code(s): I71.2 - Thoracic aortic aneurysm, without rupture (4) Gastritis: Status: Inactive Qualifiers: Chronicity: chronic Gastritis bleeding: without bleeding Gastritis type: unspecified gastritis Qualified Code(s): K29.50 - Unspecified chronic gastritis without bleeding Reason for Visit Reason for Visit: Unstable Angina Discharge Data Studies Completed and Pending Completed Studies During Hospitalization Category Date Time Status ASSOCIATE PROFESSOR OF BIOSTATISTICS request for service Routine Exams 01/19/24 07:25 Completed CV. echo complete* [id number] Routine Ultrasound 01/18/24 12:57 Completed Laboratory Results WBC 8.74 10^3/uL (3.29-11.43) 01/19/24 01:41 RBC 4.96 10^6/uL (3.85-5.65) 01/19/24 01:41 Hgb 14.60 g/dL (11.27-16.99) 01/19/24 01:41 Hct 45.2 % (37-53) 01/19/24 01:41 MCV 91.1 fl (82-101) 01/19/24 01:41 MCH 29.4 pg (27-33) 01/19/24 01:41 MCHC 32.3 g/dL (30-55) 01/19/24 01:41 RDW 13.9 % (12.1-15.1) 01/19/24 01:41 Plt Count 249 10^3/cmm (157-399) 01/19/24 01:41 MPV 9.4 fL (7.4-10.4) 01/19/24 01:41 Neut % (Auto) 50.1 % 01/19/24 01:41 Lymph % (Auto) 31.8 % 01/19/24 01:41 [place] % (Auto) 9.6 % 01/19/24 01:41 Eos % (Auto) 7.2 % 01/19/24 01:41 Baso % (Auto) 1.0 % 01/19/24 01:41 Neut # (Auto) 4.37 10^3/uL (1.8-7.7) 01/19/24 01:41 Lymph # (Auto) 2.8 10^3/uL (0.8-4.8) 01/19/24 01:41 [place] # (Auto) 0.8 10^3/uL (0.2-0.9) 01/19/24 01:41 Eos # (Auto) 0.6 10^3/uL (0.0-0.8) 01/19/24 01:41 Baso # (Auto) 0.1 10^3/uL (0.0-0.1) 01/19/24 01:41 Nucleated RBC % (auto) 0 % 01/19/24 01:41 Nucleated RBCs # 0.0 /100WBC 01/19/24 01:41 APTT 223.9 SECONDS (23.9-36.7) H* D 01/19/24 10:00 Sodium 138 mmol/L (136-145) 01/19/24 01:41 Potassium 4.0 mmol/L (3.5-5.1) 01/19/24 01:41 Chloride 102 mmol/L (98-107) 01/19/24 01:41 Carbon Dioxide 27 mmol/L (22-29) 01/19/24 01:41 Anion Gap 13.0 (5-19) 01/19/24 01:41 BUN 12 mg/dL (6-20) 01/19/24 01:41 Creatinine 0.7 mg/dL (0.7-1.2) 01/19/24 01:41 GFR Calculation 123.7 mL/min (90-130) 01/19/24 01:41 Glucose 103 mg/dL (65-115) 01/19/24 01:41 Calculated Osmolality 286 mOsm/kg (285-295) 01/19/24 01:41 Calcium 8.2 mg/dL (8.5-10.5) L 01/19/24 01:41 Magnesium 1.9 mg/dL (1.7-2.3) 01/19/24 01:41 Troponin T Baseline 10 ng/L (0-15) 01/18/24 13:10 Troponin T 120 Minute 9.16 ng/L (0-15) 01/18/24 15:03 Delta Troponin T -0.84 ABS# (0-10) L 01/18/24 15:03 Troponin T Hi Sens 6Hr 9.48 ng/L (0-15) 01/18/24 18:45 Troponin T Hi Sens 6Hr Delta -0.52 ng/L (0-12) L 01/18/24 18:45 Vitals Last Vital Signs Temp 98.4 F 01/19/24 13:36 Pulse 79 01/19/24 13:36 Resp 12 01/19/24 13:36 BP 113/71 01/19/24 13:36 Pulse Ox 96 01/19/24 13:36 O2 Del Method Room Air 01/19/24 11:10 Discharge Plan Discharge Patient Disposition: Home Condition: Good Prescriptions: Continued ondansetron 4 mg tablet,disintegrating 4 mg PO BID PRN (Reason: nausea and vomiting) Qty: 30 0RF dicyclomine 20 mg tablet 20 mg PO TID PRN (Reason: esophageal spasm) Qty: 30 5RF pantoprazole [Protonix] 40 mg tablet,delayed release (DR/EC) 40 mg PO BID 90 Days Qty: 180 1RF gabapentin 600 mg tablet 600 mg PO TID PRN (Reason: Pain) 90 Days Qty: 270 1RF atorvastatin 80 mg tablet 80 mg PO BEDTIME Qty: 30 1RF hydralazine 10 mg tablet 10 mg PO TID PRN (Reason: hypertension) Qty: 30 2RF Rx Instructions: PRN high blood pressure (>160/>100) for 15 min isosorbide mononitrate 60 mg tablet extended release 24 hr 60 mg PO DAILY Qty: 30 0RF isosorbide mononitrate 30 mg tablet extended release 24 hr 30 mg PO QAM Qty: 30 0RF Rx Instructions: take with 60mg to equal 90mg daily clopidogrel 75 mg tablet 75 mg PO DAILY 30 Days Qty: 30 1RF aspirin 81 mg tablet,delayed release (DR/EC) 81 mg PO DAILY 30 Days Qty: 30 0RF carvedilol 3.125 mg tablet 3.125 mg PO BID Qty: 60 0RF losartan 25 mg tablet 25 mg PO DAILY 30 Days Qty: 30 0RF nitroglycerin 0.4 mg tablet, sublingual 0.4 mg sublingual Q5M PRN (Reason: Chest Pain) Qty: 25 0RF Rx Instructions: do not exceed 3 doses per episode furosemide 20 mg tablet 20 mg PO DAILY Qty: 30 0RF mirtazapine 15 mg tablet 15 mg PO QPM Qty: 30 0RF duloxetine [Cymbalta] 60 mg capsule,delayed release(DR/EC) 60 mg PO DAILY 30 Days Qty: 30 1RF Held amlodipine 5 mg tablet 5 mg PO DAILY 90 Days Qty: 90 1RF Hold Instructions: see cardiology Discharge Orders: Discharge Order (Routine); Ordered 01/19/24 Ordered By: Jesus Franco Referrals: Alessandra Zelaya FNP [Nurse Practitioner] - (We have notified your physician's clinic of the need for a follow-up appointment to be scheduled. If you have not heard from them within the next 2 business days, please call them directly. ) Discharge Diet: Cardiac Discharge Activity: Limit activity as instructed Patient Instructions: Heart Catheterization (DC), Angiogram (DC), Opioid Safety Discharge Attestations Time Spent in Discharge Care*: greater than 30 min Quality Metrics Clinical Quality Measures [ No reported AMI, CVA or VTE this stay] Coding Level of Care Code Acute Code for g Fwd Diagnoses Unstable angina I20.0 Primary hypertension I10 Hypertension type: primary hypertension Thoracic aortic aneurysm without rupture I71.2 Aortic location: thoracic aorta Presence of rupture: without rupture Gastritis K29.50 Chronicity: chronic Gastritis bleeding: without bleeding Gastritis type: unspecified gastritis
== END 2024-01-19 13:38 | disposition home or self-care (01) ==
PROVIDERS: Internal Medicine Cardiovascular Disease; Admitting Provider Internal Medicine; PCP Family Medicine; Visit Provider Internal Medicine
DX: I20.0 Unstable angina (principal); I10 Essential (primary) hypertension; I71.20 Thoracic aortic aneurysm, without rupture, unspecified; K29.50 Unspecified chronic gastritis without bleeding; K21.9 Gastro-esophageal reflux disease without esophagitis; J44.9 Chronic obstructive pulmonary disease, unspecified; E78.00 Pure hypercholesterolemia, unspecified; Z85.038 Personal history of other malignant neoplasm of large intestine; Z79.82 Long term (current) use of aspirin; Z95.5 Presence of coronary angioplasty implant and graft; F17.210 Nicotine dependence, cigarettes, uncomplicated; E78.5 Hyperlipidemia, unspecified; E66.9 Obesity, unspecified; Z68.31 Body mass index [BMI] 31.0-31.9, adult
CPT/HCPCS: 36415; 80048; 83735; 84484; 85025; 85049; 85347; 85730; 93005; 93306; 93454; 93571; 96374; 96375; 96376; 99152; 99153; C1769; C1887; C1894; G0378; G0379; J1200; J1644; J2250; J2270; J2405; J3010; J3490; J7030; Q9967

== ENCOUNTER 2024-05-25 14:32 | Emergency (ER) | payer MEDICAID, SELFPAY ==
[2024-05-25] VITALS (10 sets, daily range): BP systolic 114–180; BP diastolic 77–158; PULSE 70–94; RESP 13–20; TEMP 36.6; O2SAT 91–95; BMI 29.1
--- NOTE | 2024-05-25 14:36 | ECG_ITS ---
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
--- NOTE | 2024-05-25 14:36 | XRR_ITS ---
PROCEDURE INFORMATION: Exam: XR Chest Exam date and time: 05/25/2024 3:14 PM Age: 44 years old Clinical indication: Pain; Chest pressure; Additional info: Chest pain TECHNIQUE: Imaging protocol: Radiologic exam of the chest. Views: 1 view. COMPARISON: CR XR chest 1V portable [id number] 10/31/2022 8:04 PM FINDINGS: Lungs: No focal consolidation. Pleural spaces: No evidence of pneumothorax. No evidence of pleural effusion. Heart/Mediastinum: Cardiomediastinal silhouette is within normal limits. Bones/joints: No evidence of acute osseous abnormality. XR/XR chest 1V portable [id number] IMPRESSION: 1. No acute cardiopulmonary abnormality.
--- NOTE | 2024-05-25 14:38 | W.ED.CHESTPA ---
HPI - Chest Pain General: Chief Complaint: Chest Pain Stated Complaint: chest pain Time Seen by Provider: 05/25/24 14:35 Source: patient Mode of arrival: ambulatory Limitations: no limitations History of Present Illness: Patient is a 44-year-old male with a history of HTN, paroxysmal atrial fibrillation, diabetes, diastolic heart failure, aortic root aneurysm, coronary artery disease with previous cardiac stents here with complaints of chest pain. He states a few hours ago he began developing chest pain and feeling clammy. Patient states he took a nitro without any relief. He states his chest pain began radiating to his back. He took a total of 3 nitro without relief of his symptoms. He arrives here in no acute distress with stable vital signs. Patient states he is receiving surveillance on his aneurysm in [place]. 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 past history: coronary artery disease, prior ID and known aortic aneurysm Onset (ago): hour(s) Timing of current episode: constant Prior episodes: Yes Onset: during rest Pain location: substernal Pain radiation: back Severity: severe Pain scale (0-10): 9 Relieving factors: nothing Exacerbating factors: nothing Associated symptoms: Reports other (states he felt clammy earlier-resolved); Deny abdominal pain, dyspnea, fever(s), nausea, palpitations, syncope or vomiting Treatment prior to arrival: none Risk Factors: Coronary artery disease risk factors: diabetes, smoking history, hyperlipidemia and hypertension Thoracic aortic dissection risk factors: history of thoracic aortic aneurysm Related Data Home Medications ?Medication ?Instructions ?Recorded ?Confirmed ezetimibe 10 mg tablet 10 mg PO DAILY 05/25/24 05/25/24 Previous Rx's ?Medication ?Instructions ?Recorded aspirin 81 mg tablet,delayed 81 mg PO DAILY 30 days #30 tabs 01/19/24 release hydralazine 10 mg tablet 10 mg PO TID PRN hypertension #30 01/19/24 tabs nitroglycerin 0.4 mg sublingual 0.4 mg sublingual Q5M PRN Chest 01/19/24 tablet Pain #25 tabs carvedilol 12.5 mg tablet 12.5 mg PO BID #180 tabs 02/15/24 bupropion HCl 150 mg 24 hr tablet, 150 mg PO QAM 30 days #30 tabs 02/25/24 extended release (Wellbutrin XL) atorvastatin 80 mg tablet 80 mg PO BEDTIME #90 tabs 03/17/24 clopidogrel 75 mg tablet 75 mg PO DAILY 90 days #90 tabs 03/17/24 dicyclomine 20 mg tablet 20 mg PO TID PRN esophageal spasm 03/17/24 #30 tabs duloxetine 60 mg capsule,delayed 60 mg PO DAILY 90 days #90 caps 03/17/24 release (Cymbalta) furosemide 20 mg tablet 20 mg PO DAILY 90 days #90 tabs 03/17/24 gabapentin 600 mg tablet 600 mg PO QID PRN Pain 90 days 03/17/24 #360 tabs isosorbide mononitrate 30 mg 30 mg PO QAM 90 days #90 tabs 03/17/24 tablet,extended release 24 hr isosorbide mononitrate 60 mg 60 mg PO DAILY 90 days #90 tabs 03/17/24 tablet,extended release 24 hr mirtazapine 15 mg tablet 15 mg PO QPM 90 days #90 tabs 03/17/24 ondansetron 4 mg disintegrating 4 mg PO BID PRN nausea and 03/17/24 tablet vomiting #30 tabs pantoprazole 40 mg tablet,delayed 40 mg PO BID 90 days #180 tabs 03/17/24 release (Protonix) valsartan 160 mg tablet 160 mg PO DAILY #90 tabs 04/08/24 Allergies Allergy/AdvReac Type Severity Reaction Status Date / Time No Known Allergies Allergy Verified 04/08/24 15:40 Review of Systems Const: Denies: fever(s), chills, fatigue or malaise Card: Reports: chest pain; Denies: palpitations, irregular heart rhythm, edema, swelling of feet/ankles, lightheadedness, syncope, pre-syncope, dyspnea on exertion, orthopnea, leg pain with exertion or acrocyanosis Resp: Denies: dyspnea, productive cough, non-productive cough or hemoptysis GI: Denies: abdominal pain, nausea, vomiting or diarrhea : Denies: flank pain or dysuria Musc: Denies: neck pain, back pain, extremity pain, extremity swelling, joint pain, joint swelling or joint redness Skin/Breast: Denies: rash Neuro: Denies: headache(s), numbness in extremities, weakness in extremities, sensory changes or dizziness PFS ED PFSH: Medical History Unstable angina Aorta aneurysm Chest pain Colon polyp Gastritis and duodenitis Eli esophagus Dilated aortic root Urolithiasis LAURA (generalized anxiety disorder) GERD (gastroesophageal reflux disease) Cervical radiculopathy HTN (hypertension) Dyslipidemia Gross hematuria Staghorn calculus Atherosclerosis of coronary artery Presence of stent in LAD coronary artery Central apnea Tobacco use Gastroesophageal reflux disease COPD (chronic obstructive pulmonary disease) Depression Surgical History Status post laser lithotripsy of ureteral calculus S/P ureteral stent placement Hx of heart artery stent H/O colonoscopy with polypectomy History of cholecystectomy Family History Father Heart disease Alcoholic Lung disease Mother Healthy adult Social History Smoking and tobacco/nicotine status: current every day tobacco/nicotine user cigarettes Packs smoked per day: 0.5 Years cigarettes smoked: 20 Alcohol intake: current Alcohol intake frequency: holidays/special occasions only Substance/Drug Use: never Marital status: Current occupational status: unemployed Physical Exam Const: COMMON NORMALS: no acute distress, average body habitus, patient oriented x3, no limitations, healthy appearing, alert and well nourished GENERAL APPEARANCE: cooperative ORIENTATION/CONSCIOUSNESS: Yes awake, Yes oriented to person, Yes oriented to place and Yes oriented to time Chest: COMMONS NORMALS: normal inspection of the chest OTHER: somewhat tender to palpation of chest/back Resp: COMMON NORMALS: normal respiratory effort and clear to auscultation bilaterally AUSCULTATION: clear to auscultation bilaterally Cardio: COMMON NORMALS: regular rate and regular rhythm RATE: regular rate RHYTHM: regular rhythm GI: COMMON NORMALS: Normal to inspection, nondistended, normoactive bowel sounds present, Soft to palpation, non-tender, No hepatosplenomegaly present and no masses PALPATION: Yes Soft to palpation and Yes No hepatosplenomegaly present : COMMON NORMALS: Yes no CVA tenderness BLADDER/KIDNEY EXAM: Yes no CVA tenderness Back/Pelvis: COMMON NORMALS: no CVA tenderness, thoracic and lumbar spine normal to inspection, no thoracic nor lumbar tenderness, thoraco-lumbar ROM normal and straight leg raise negative bilaterally Extremity: GENERAL: Yes normal exam except as noted Neuro: SATHISH COMA SCALE: document GCS findings Sathish coma scale eye opening: Spontaneous Sathish coma scale verbal response: Orientated Ethel coma scale motor response: Obey commands Sathish coma scale total score: 15 COMMON NORMALS: patient oriented x3, moves all extremities, no focal motor deficits and no sensory deficits noted SENSORIUM/ORIENTATION: Yes alert, Yes oriented to person, Yes oriented to place and Yes oriented to time Skin: COMMON NORMALS: no rashes or lesions noted GENERAL SKIN EXAM: no rashes or lesions noted Course Vital Signs: Vital signs: Vital Signs Temperature 97.9 F 05/25/24 14:35 Pulse Rate 82 05/25/24 15:30 Respiratory Rate 16 05/25/24 15:15 Blood Pressure 114/84 05/25/24 16:38 Pulse Oximetry 93 05/25/24 15:30 Oxygen Delivery Me thod Room Air 05/25/24 14:35 MDM - Chest Pain Medical Decision Making Patient is a 44-year-old male here for complaints of chest pain. His chest pain has improved during his ED stay. His vital signs are stable. Blood work including baseline and repeat troponins and BNP were collected. Patient's baseline troponin was 12 with a negative delta. His EKGs are nonischemic and unchanged from compared to previous. His BNP is normal. CXR was unremarkable. Due to history of known aortic aneurysm and complaint of chest pain with radiation to the back, CTA imaging was obtained. Aneurysm measured at 4.5 cm. He states last time he followed up with vascular he believes this was roughly 4.9cm. Unlikely any significant change today. He will continue to follow-up with vascular in [place]. Patient will be allowed discharge. We have case management get him set up with follow-up with cardiology here. Return precautions discussed. Medical Records I reviewed the patient's medical records. Lab Data I reviewed the patient's lab results. 05/25/24 14:43 Radiology Impressions Chest X-Ray 05/25/24 14:36 IMPRESSION: 1. No acute cardiopulmonary abnormality. Chest CTA 05/25/24 14:50 IMPRESSION: 1. No evidence of PE or acute aortic abnormality. 2. Dilatation of the aortic root. Follow-up outpatient vascular evaluation is recommended. Laboratory Results WBC 11.76 10^3/uL (3.29-11.43) H 05/25/24 14:43 RBC 5.20 10^6/uL (3.85-5.65) 05/25/24 14:43 Hgb 15.50 g/dL (11.27-16.99) 05/25/24 14:43 Hct 47.4 % (37-53) 05/25/24 14:43 MCV 91.2 fl (82-101) 05/25/24 14:43 MCH 29.8 pg (27-33) 05/25/24 14:43 MCHC 32.7 g/dL (30-55) 05/25/24 14:43 RDW 13.8 % (12.1-15.1) 05/25/24 14:43 Plt Count 287 10^3/cmm (157-399) 05/25/24 14:43 MPV 9.4 fL (7.4-10.4) 05/25/24 14:43 Neut % (Auto) 65.2 % 05/25/24 14:43 Lymph % (Auto) 20.2 % 05/25/24 14:43 [place] % (Auto) 7.7 % 05/25/24 14:43 Eos % (Auto) 6.1 % 05/25/24 14:43 Baso % (Auto) 0.3 % 05/25/24 14:43 Neut # (Auto) 7.67 10^3/uL (1.8-7.7) 05/25/24 14:43 Lymph # (Auto) 2.4 10^3/uL (0.8-4.8) 05/25/24 14:43 [place] # (Auto) 0.9 10^3/uL (0.2-0.9) 05/25/24 14:43 Eos # (Auto) 0.7 10^3/uL (0.0-0.8) 05/25/24 14:43 Baso # (Auto) 0.0 10^3/uL (0.0-0.1) 05/25/24 14:43 Nucleated RBC % (auto) 0 % 05/25/24 14:43 Nucleated RBCs # 0.0 /100WBC 05/25/24 14:43 Troponin T Baseline 12 ng/L (0-15) 05/25/24 14:43 Troponin T 120 Minute 10.24 ng/L (0-15) 05/25/24 16:19 Delta Troponin T -1.76 ABS# (0-10) L 05/25/24 16:19 NT-Pro-B Natriuret Pep 37 pg/mL (0-125) 05/25/24 14:43 All radiology interpretation(s) finalized by discharge Discharge Plan Discharge Patient Disposition: Home Clinical Impression: Chest pain Qualifiers: Chest pain type: unspecified Qualified Code(s): R07.9 - Chest pain, unspecified Aorta aneurysm Qualifiers: Aortic location: thoracic aorta Presence of rupture: without rupture Qualified Code(s): I71.2 - Thoracic aortic aneurysm, without rupture Condition: Stable Prescriptions: No Action bupropion HCl [Wellbutrin XL] 150 mg tablet extended release 24 hr 150 mg PO QAM 30 Days Qty: 30 5RF atorvastatin 80 mg tablet 80 mg PO BEDTIME Qty: 90 2RF clopidogrel 75 mg tablet 75 mg PO DAILY 90 Days Qty: 90 2RF dicyclomine 20 mg tablet 20 mg PO TID PRN (Reason: esophageal spasm) Qty: 30 5RF duloxetine [Cymbalta] 60 mg capsule,delayed release(DR/EC) 60 mg PO DAILY 90 Days Qty: 90 2RF furosemide 20 mg tablet 20 mg PO DAILY 90 Days Qty: 90 2RF isosorbide mononitrate 60 mg tablet extended release 24 hr 60 mg PO DAILY 90 Days Qty: 90 1RF gabapentin 600 mg tablet 600 mg PO QID PRN (Reason: Pain) 90 Days Qty: 360 1RF isosorbide mononitrate 30 mg tablet extended release 24 hr 30 mg PO QAM 90 Days Qty: 90 1RF Rx Instructions: take with 60mg to equal 90mg daily mirtazapine 15 mg tablet 15 mg PO QPM 90 Days Qty: 90 1RF pantoprazole [Protonix] 40 mg tablet,delayed release (DR/EC) 40 mg PO BID 90 Days Qty: 180 1RF ondansetron 4 mg tablet,disintegrating 4 mg PO BID PRN (Reason: nausea and vomiting) Qty: 30 5RF valsartan 160 mg tablet 160 mg PO DAILY Qty: 90 3RF carvedilol 12.5 mg tablet 12.5 mg PO BID Qty: 180 1RF Rx Instructions: dose increase hydralazine 10 mg tablet 10 mg PO TID PRN (Reason: hypertension) Qty: 30 2RF Rx Instructions: PRN high blood pressure (>160/>100) for 15 min aspirin 81 mg tablet,delayed release (DR/EC) 81 mg PO DAILY 30 Days Qty: 30 0RF nitroglycerin 0.4 mg tablet, sublingual 0.4 mg sublingual Q5M PRN (Reason: Chest Pain) Qty: 25 0RF Rx Instructions: do not exceed 3 doses per episode ezetimibe 10 mg tablet 10 mg PO DAILY Discharge Orders: Discharge ED (Routine); Ordered 05/25/24 Ordered By: Hansa Arce Referrals: Anna Roach MD [Primary Care Provider] - Patient Instructions: Chest Pain (DC), Aortic Root Aneurysm (DC) Activity Restrictions/Additional Instructions: As we discussed, we have case management try to set you up with a follow-up appointment with cardiology. You need to return to the emergency department for worsening chest pain, shortness of breath, difficulty breathing, or any other concerns you may have. I hope you begin to feel better soon. Print Language: Samoan Coding Level of Care Code ED Regional Production Manager for Clair Mathew
--- NOTE | 2024-05-25 14:50 | CTR_ITS ---
PROCEDURE INFORMATION: Exam: CTA Chest With Contrast Exam date and time: 05/25/2024 3:18 PM Age: 44 years old Clinical indication: Pain; Chest pressure; Additional info: Known aortic aneurysm; Chest/back pain TECHNIQUE: Imaging protocol: Computed tomographic angiography of the chest with contrast. Exam focused on the arteries. 3D rendering (Not supervised by radiologist): MIP and/or 3D reconstructed images were created by the technologist. Radiation optimization: All CT scans at this facility use at least one of these dose optimization techniques: automated exposure control; mA and/or kV adjustment per patient size (includes targeted exams where dose is matched to clinical indication); or iterative reconstruction. Contrast material: OMNI 350; Contrast volume: 100 ml; Contrast route: INTRAVENOUS (IV); COMPARISON: CT angio chest PE protcl [id number] 06/04/2022 8:37 PM RADIATION DOSE METRICS: Total DLP (mGy-cm): 1162.5 FINDINGS: Pulmonary arteries: No evidence of pulmonary thromboembolism. Aorta: No evidence of dissection. There is dilatation of the aortic root to 4.5 cm. Ectasia of the ascending thoracic aorta to 3.9 cm. Thyroid: Grossly unremarkable. Lungs: No focal consolidation. No evidence of pneumonia. Pleural spaces: No evidence of pleural effusion. No pneumothorax. Heart: No cardiomegaly. No pericardial effusion. Mediastinal space: Moderate hiatal hernia with the GE junction and a portion of the gastric body above the diaphragm. Lymph nodes: No mediastinal or hilar adenopathy. Bones/joints: No evidence of acute fracture or aggressive osseous lesion. Soft tissues: No evidence of fluid collection or hematoma in the superficial soft tissues. Other findings: No evidence of acute abnormality in the upper abdomen. CT/CT angio chest [id number] IMPRESSION: 1. No evidence of PE or acute aortic abnormality. 2. Dilatation of the aortic root. Follow-up outpatient vascular evaluation is recommended.
[2024-05-25 14:53] LABS: Basophils % 0.3 %; Eosinophils # 0.7 10^3/uL (0.0-0.8); Eosinophils % 6.1 %; Hematocrit 47.4 % (37-53); Lymphocytes # 2.4 10^3/uL (0.8-4.8); Lymphocytes % 20.2 %; Mean Corpuscular HGB Conc 32.7 g/dL (30-55); Mean Corpuscular Hemoglobin 29.8 pg (27-33); Mean Corpuscular Volume 91.2 fl (82-101); Mean Platelet Volume 9.4 fL (7.4-10.4); Monocytes # 0.9 10^3/uL (0.2-0.9); Monocytes % 7.7 %; Neutrophils # 7.67 10^3/uL (1.8-7.7); Neutrophils % 65.2 %; Nucleated Red Blood Cells % 0 %; Platelet Count 287 10^3/cmm (157-399); Red Cell Distribution Width 13.8 % (12.1-15.1); White Blood Count 11.76 10^3/uL (3.29-11.43)
[2024-05-25] MEDS: ondansetron 2 mg/ML SDV 2 mL 4 MG IVP (15:03)
[2024-05-25] MEDS: morphine 4 mg/mL SDV 1 mL IVP (15:04)
[2024-05-25 15:11] LABS: Troponin(5th) Baseline 12 ng/L (0-15)
[2024-05-25 15:24] LABS: NT Pro B Type Natriuretic Pept 37 pg/mL (0-125)
[2024-05-25] MEDS: iohexol 350 mg/mL 500 mL Btl (per mL) IV (15:25)
[2024-05-25] MEDS: labetalol 5 mg/mL SDV 20mL 20 MG IVP (15:46)
--- NOTE | 2024-05-25 16:36 | ECG_ITS ---
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
[2024-05-25 17:03] LABS: Troponin 5 2HR 10.24 ng/L (0-15); Troponin 5 2HR Delta -1.76 ABS# (0-10)
== END 2024-05-25 18:15 | disposition home or self-care (01) ==
PROVIDERS: Emergency Provider Physician Assistant; PCP Family Medicine
DX: R07.9 Chest pain, unspecified (principal); I71.20 Thoracic aortic aneurysm, without rupture, unspecified; Z79.02 Long term (current) use of antithrombotics/antiplatelets; Z79.82 Long term (current) use of aspirin; F17.210 Nicotine dependence, cigarettes, uncomplicated; J44.9 Chronic obstructive pulmonary disease, unspecified; E78.5 Hyperlipidemia, unspecified; I10 Essential (primary) hypertension
CPT/HCPCS: 36415; 71045; 71275; 83880; 84484; 85025; 93005; 96374; 96375; 99285; J2270; J2405; J3490

== ENCOUNTER 2024-06-08 18:50 | Emergency (ER) | payer MEDICAID, SELFPAY ==
[2024-06-08 19:02] VITALS: BP 143/97; PULSE 73; RESP 18; TEMP 36.8; O2SAT 95; BMI 29.1
--- NOTE | 2024-06-08 19:02 | ECG_ITS ---
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
[2024-06-08 20:17] LABS: Basophils # 0.1 10^3/uL (0.0-0.1); Basophils % 1.3 %; Eosinophils % 21.1 %; Hematocrit 44.8 % (37-53); Lymphocytes # 2.7 10^3/uL (0.8-4.8); Mean Corpuscular HGB Conc 32.1 g/dL (30-55); Mean Corpuscular Hemoglobin 29.3 pg (27-33); Mean Corpuscular Volume 91.1 fl (82-101); Mean Platelet Volume 9.4 fL (7.4-10.4); Monocytes # 0.8 10^3/uL (0.2-0.9); Monocytes % 8.4 %; Neutrophils # 3.88 10^3/uL (1.8-7.7); Nucleated Red Blood Cells % 0 %; Platelet Count 272 10^3/cmm (157-399); Red Blood Count 4.92 10^6/uL (3.85-5.65); White Blood Count 9.47 10^3/uL (3.29-11.43)
[2024-06-08 20:34] LABS: Troponin(5th) Baseline 10 ng/L (0-15)
[2024-06-08 20:42] LABS: Alanine Aminotransferase 35 U/L (0-41); Albumin Level 4.3 g/dL (3.5-5.2); Alkaline Phosphatase 150 U/L (40-130); Anion Gap 16.9 (5-19); Aspartate Amino Transferase 21 U/L (0-40); Blood Urea Nitrogen 11 mg/dL (6-20); Calcium 9.6 mg/dL (8.5-10.5); Carbon Dioxide 26 mmol/L (22-29); Chloride 101 mmol/L (98-107); Creatinine Clr Calc Pharmacy 128.0891; Globulin 2.5 g/dL (1.3-4.6); Glomerular Filtration Rate 92.1 mL/min (90-130); Glucose 91 mg/dL (65-115); Osmolality Calculated 289 mOsm/kg (285-295); Potassium 3.9 mmol/L (3.5-5.1); Sodium 140 mmol/L (136-145); Total Bilirubin 0.4 mg/dL (0.15-1.2); Total Protein 6.8 g/dL (6.6-8.7)
[2024-06-08 21:36] VITALS: BP 132/99; PULSE 72; RESP 16; O2SAT 91
--- NOTE | 2024-06-08 21:50 | ECG_ITS ---
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
[2024-06-08 22:22] LABS: Troponin 5 2HR 8.64 ng/L (0-15)
[2024-06-08 22:23] LABS: Troponin 5 2HR Delta -1.36 ABS# (0-10)
[2024-06-08] MEDS: ketorolac 30 mg/mL INJ IVP (22:44)
[2024-06-08 22:58] VITALS: BP 157/101; PULSE 70; RESP 18; O2SAT 96
--- NOTE | 2024-06-08 22:58 | ED_ITS ---
HPI - Chest Pain 2 General: Chief Complaint: Chest Pain Stated Complaint: chest pain Time Seen by Provider: 06/08/24 21:17 History of Present Illness: This patient is a 44-year-old white male who presents to the emergency department complaining of left upper chest pain. He states it started at 5 PM tonight. He took 2 nitroglycerin tablets without any relief. Currently rates the pain a 7 on a scale of 1-10. He did take 81 mg of aspirin today as well. Patient does have a history of prior UT. He does have 1 stent. He states that was placed in 2021. Related Data Home Medications ?Medication ?Instructions ?Recorded ?Confirmed ezetimibe 10 mg tablet 10 mg PO DAILY 05/25/2405/04 Previous Rx's ?Medication ?Instructions ?Recorded aspirin 81 mg tablet,delayed 81 mg PO DAILY 30 days #3 0 tabs 01/19/24 release hydralazine 10 mg tablet 10 mg PO TID PRN hypertensio n #30 01/19/24 tabs nitroglycerin 0.4 mg sublingual 0.4 mg sublingual Q5M PRN Chest 01/19/24 tablet Pain #25 tabs carvedilol 12.5 mg tablet 12.5 mg PO BID #180 tabs bupropion HCl 150 mg 24 hr tablet, 150 mg PO QAM 30 da ys #30 tabs 02/25/24 extended release (Wellbutrin XL) atorvastatin 80 mg tablet 80 mg PO BEDTIME #90 tabs clopidogrel 75 mg tablet 75 mg PO DAILY 90 days #90 t abs 03/17/24 dicyclomine 20 mg tablet 20 mg PO TID PRN esophageal spasm 03/17/24 #30 tabs duloxetine 60 mg capsule,delayed 60 mg PO DAILY 90 day s #90 caps 03/17/24 release (Cymbalta) furosemide 20 mg tablet 20 mg PO DAILY 90 days #90 t abs 03/17/24 gabapentin 600 mg tablet 600 mg PO QID PRN Pain 90 da ys 03/17/24 #360 tabs isosorbide mononitrate 30 mg 30 mg PO QAM 90 days #90 tabs 03/17/24 tablet,extended release 24 hr isosorbide mononitrate 60 mg 60 mg PO DAILY 90 days #9 0 tabs 03/17/24 tablet,extended release 24 hr mirtazapine 15 mg tablet 15 mg PO QPM 90 days #90 tab s 03/17/24 ondansetron 4 mg disintegrating 4 mg PO BID PRN nausea and 03/17/24 tablet vomiting #30 tabs pantoprazole 40 mg tablet,delayed 40 mg PO BID 90 days #180 tabs 03/17/24 release (Protonix) valsartan 160 mg tablet 160 mg PO DAILY #90 tabs 10/24 Allergies Allergy/AdvReac Type Severity Reaction Status Date / Time No Known Allergies Allergy Verified 04/08/24 15:40 Review of Systems 2 General: Reports: 10 or more systems reviewed and unremarkable except in HPI and below Card: Reports: chest pain PFSH ED 2 PFSH: Medical History Unstable angina Aorta aneurysm Chest pain Colon polyp Gastritis and duodenitis Eli esophagus Dilated aortic root Urolithiasis LAURA (generalized anxiety disorder) GERD (gastroesophageal reflux disease) Cervical radiculopathy HTN (hypertension) Dyslipidemia Gross hematuria Staghorn calculus Atherosclerosis of coronary artery Presence of stent in LAD coronary artery Central apnea Tobacco use Gastroesophageal reflux disease COPD (chronic obstructive pulmonary disease) Depression Surgical History Status post laser lithotripsy of ureteral calculus S/P ureteral stent placement Hx of heart artery stent H/O colonoscopy with polypectomy History of cholecystectomy Family History Father Heart disease Alcoholic Lung disease Mother Healthy adult Social History Smoking and tobacco/nicotine status: current every day tobacco/nicotine user cigarettes Packs smoked per day: 0.5 Years cigarettes smoked: 20 Alcohol intake: current Alcohol intake frequency: holidays/special occasions only Substance/Drug Use: never Marital status: Current occupational status: unemployed Physical Exam 2 Const: COMMON NORMALS: no acute distress, patient oriented x3 and no limitations GENERAL APPEARANCE: cooperative and comfortable HENMT: COMMON NORMALS: normocephalic, atraumatic, Normal nasal mucous membranes and turbinates present, moist oral mucous membranes and oropharynx normal HEAD & SCALP: normal to inspection, normocephalic and atraumatic F ANGELY & SINUS: normal facial exam NOSE: Normal nasal mucous membranes and turbinates present Eye: COMMON NORMALS: Equal, round and reactive pupils present, EOMs intact bilaterally and conjunctivae normal GENERAL EYE: appearance normal, both eyes and all related structures CONJUNCTIVA: Yes conjunctivae normal PUPIL: Yes Equal, round and reactive pupils present Neck/C-Spine: COMMON NORMALS: supple and no JVD Chest: COMMONS NORMALS: normal inspection of the chest Resp: COMMON NORMALS: normal respiratory effort and clear to auscultation bilaterally AUSCULTATION: clear to auscultation bilaterally Cardio: COMMON NORMALS: no JVD, regular rate, regular rhythm, No gallops present (Cardio), No murmurs present (Cardio) and No rub (Cardio) RATE: r egular rate RHYTHM: regular rhythm GI: COMMON NORMALS: Normal to inspection, nondistended, normoactive bowel sounds present, Soft to palpation and non-tender AUSCULTATION: Yes normoactive bowel sounds PALPATION: Yes Soft to palpation : COMMON NORMALS: Yes no CVA tenderness BLADDER/KIDNEY EXAM: Yes no CVA tenderness Back/Pelvis: COMMON NORMALS: no CVA tenderness and thoracic and lumbar spine normal to inspection Extremity: COMMON NORMALS: normal to inspection Neuro: COMMON NORMALS: patient oriented x3 and CN's II-XII intact bilaterally Psych: COMMON NORMALS: mental status grossly normal, Normal thought process present and cooperative THOUGHT PROCESS: Normal thought process present Skin: COMMON NORMALS: no rashes or lesions noted, turgor normal and no jaundice GENERAL SKIN EXAM: no rashes or lesions noted and turgor normal Course 2 Vital Signs: Vital signs: Vital Signs Temperature 98.3 F 06/08/24 19:02 Pulse Rate 72 06/08/24 21:36 Respiratory Rate 16 06/08/24 21:36 Blood Pressure 132/99 06/08/24 21:36 Pulse Oximetry 91 06/08/24 21:36 Oxygen Delivery Me thod Room Air 06/08/24 21:36 MDM - Chest Pain Medical Decision Making EKG revealed normal sinus rhythm with no ST segment abnormalities. CBC and CMP were normal. Baseline troponin was 10 with a 2-hour level 8.6. Patient was given Toradol and morphine. He is feeling better. He was discharged in stable condition instructed to follow-up with his primary care physician soon as possible for recheck. Lab Data 06/08/24 20:11 06/08/24 20:11 Laboratory Results WBC 9.47 10^3/uL (3.29-11.43) 06/08/24 20:11 RBC 4.92 10^6/uL (3.85-5.65) 06/08/24 20:11 Hgb 14.40 g/dL (11.27-16.99) 06/08/24 20:11 Hct 44.8 % (37-53) 06/08/24 20:11 MCV 91.1 fl (82-101) 06/08/24 20:11 MCH 29.3 pg (27-33) 06/08/24 20:11 MCHC 32.1 g/dL (30-55) 06/08/24 20:11 RDW 14.0 % (12.1-15.1) 06/08/24 20:11 Plt Count 272 10^3/cmm (157-399) 06/08/24 20:11 MPV 9.4 fL (7.4-10.4) 06/08/24 20:11 Neut % (Auto) 41.0 % 06/08/24 20:11 Lymph % (Auto) 28.0 % 06/08/24 20:11 [place] % (Auto) 8.4 % 06/08/24 20:11 Eos % (Auto) 21.1 % 06/08/24 20:11 Baso % (Auto) 1.3 % 06/08/24 20:11 Neut # (Auto) 3.88 10^3/uL (1.8-7.7) 06/08/24 20:11 Lymph # (Auto) 2.7 10^3/uL (0.8-4.8) 06/08/24 20:11 [place] # (Auto) 0.8 10^3/uL (0.2-0.9) 06/08/24 20:11 Eos # (Auto) 2.0 10^3/uL (0.0-0.8) H 06/08/24 20:11 Baso # (Auto) 0.1 10^3/uL (0.0-0.1) 06/08/24 20:11 Nucleated RBC % (auto) 0 % 06/08/24 20:11 Nucleated RBCs # 0.0 /100WBC 06/08/24 20:11 Sodium 140 mmol/L (136-145) 06/08/24 20:11 Potassium 3.9 mmol/L (3.5-5.1) 06/08/24 20:11 Chloride 101 mmol/L (98-107) 06/08/24 20:11 Carbon Dioxide 26 mmol/L (22-29) 06/08/24 20:11 Anion Gap 16.9 (5-19) 06/08/24 20:11 BUN 11 mg/dL (6-20) 06/08/24 20:11 Creatinine 0.9 mg/dL (0.7-1.2) 06/08/24 20:11 GFR Calculation 92.1 mL/min (90-130) 06/08/24 20:11 Glucose 91 mg/dL (65-115) 06/08/24 20:11 Calculated Osmolality 289 mOsm/kg (285-295) 06/08/24 20:11 Calcium 9.6 mg/dL (8.5-10.5) 06/08/24 20:11 Total Bilirubin 0.4 mg/dL (0.15-1.2) 06/08/24 20:11 AST 21 U/L (0-40) 06/08/24 20:11 ALT 35 U/L (0-41) 06/08/24 20:11 Alkaline Phosphatase 150 U/L (40-130) H 06/08/24 20:11 Troponin T Baseline 10 ng/L (0-15) 06/08/24 20:11 Troponin T 120 Minute 8.64 ng/L (0-15) 06/08/24 21:48 Delta Troponin T -1.36 ABS# (0-10) L 06/08/24 21:48 Total Protein 6.8 g/dL (6.6-8.7) 06/08/24 20:11 Albumin 4.3 g/dL (3.5-5.2) 06/08/24 20:11 Globulin 2.5 g/dL (1.3-4.6) 06/08/24 20:11 No radiology studies performed this visit Discharge Plan Discharge Patient Disposition: Home Clinical Impression: Chest pain Qualifiers: Chest pain type: unspecified Qualified Code(s): R07.9 - Chest pain, unspecified Condition: Stable Prescriptions: No Action bupropion HCl [Wellbutrin XL] 150 mg tablet extended release 24 hr 150 mg PO QAM 30 Days Qty: 30 5RF atorvastatin 80 mg tablet 80 mg PO BEDTIME Qty: 90 2RF clopidogrel 75 mg tablet 75 mg PO DAILY 90 Days Qty: 90 2RF dicyclomine 20 mg tablet 20 mg PO TID PRN (Reason: esophageal spasm) Qty: 30 5RF duloxetine [Cymbalta] 60 mg capsule,delayed release(DR/EC) 60 mg PO DAILY 90 Days Qty: 90 2RF furosemide 20 mg tablet 20 mg PO DAILY 90 Days Qty: 90 2RF isosorbide mononitrate 60 mg tablet extended release 24 hr 60 mg PO DAILY 90 Days Qty: 90 1RF gabapentin 600 mg tablet 600 mg PO QID PRN (Reason: Pain) 90 Days Qty: 360 1RF isosorbide mononitrate 30 mg tablet extended release 24 hr 30 mg PO QAM 90 Days Qty: 90 1RF Rx Instructions: take with 60mg to equal 90mg daily mirtazapine 15 mg tablet 15 mg PO QPM 90 Days Qty: 90 1RF pantoprazole [Protonix] 40 mg tablet,delayed release (DR/EC) 40 mg PO BID 90 Days Qty: 180 1RF ondansetron 4 mg tablet,disintegrating 4 mg PO BID PRN (Reason: nausea and vomiting) Qty: 30 5RF valsartan 160 mg tablet 160 mg PO DAILY Qty: 90 3RF carvedilol 12.5 mg tablet 12.5 mg PO BID Qty: 180 1RF Rx Instructions: dose increase hydralazine 10 mg tablet 10 mg PO TID PRN (Reason: hypertension) Qty: 30 2RF Rx Instructions: PRN high blood pressure (>160/>100) for 15 min aspirin 81 mg tablet,delayed release (DR/EC) 81 mg PO DAILY 30 Days Qty: 30 0RF nitroglycerin 0.4 mg tablet, sublingual 0.4 mg sublingual Q5M PRN (Reason: Chest Pain) Qty: 25 0RF Rx Instructions: do not exceed 3 doses per episode ezetimibe 10 mg tablet 10 mg PO DAILY Discharge Orders: Discharge ED (Routine); Ordered 06/08/24 Ordered By: Harvey Joiner Referrals: Anna Roach MD [Primary Care Provider] - Patient Instructions: Chest Pain (DC) Activity Restrictions/Additional Instructions: Follow-up with your primary care provider soon as possible for recheck. Print Language: Spanish Coding Level of Care Code ED Letter Of Credit Document Examiner for Clair Mathew
[2024-06-08 23:00] VITALS: BP 167/101; PULSE 65; RESP 17; O2SAT 93
[2024-06-08 23:22] VITALS: BP 125/80; PULSE 63; RESP 14; O2SAT 92
== END 2024-06-08 23:23 | disposition home or self-care (01) ==
PROVIDERS: Emergency Medicine; Emergency Provider Emergency Medicine; PCP Family Medicine
DX: R07.9 Chest pain, unspecified (principal); Z79.02 Long term (current) use of antithrombotics/antiplatelets; Z79.82 Long term (current) use of aspirin; F17.210 Nicotine dependence, cigarettes, uncomplicated; J44.9 Chronic obstructive pulmonary disease, unspecified; I25.10 Atherosclerotic heart disease of native coronary artery without angina pectoris; E78.5 Hyperlipidemia, unspecified; I10 Essential (primary) hypertension
CPT/HCPCS: 36415; 80053; 84484; 85025; 93005; 96374; 99284; J1885

== ENCOUNTER → 2024-06-24 10:05 | Outpatient (BNVA) | payer MEDICAID, SELFPAY | PROVIDERS: PCP Family Medicine; Visit Provider Family Medicine | DX: Z12.5 Encounter for screening for malignant neoplasm of prostate (principal); I25.110 Atherosclerotic heart disease of native coronary artery with unstable angina pectoris | CPT/HCPCS: 80061; 84153 ==

== ENCOUNTER → 2024-08-12 09:15 | Outpatient (BNVA) | payer MEDICAID, SELFPAY | PROVIDERS: PCP Family Medicine; Visit Provider Family Medicine | DX: I10 Essential (primary) hypertension (principal); I25.110 Atherosclerotic heart disease of native coronary artery with unstable angina pectoris; E78.5 Hyperlipidemia, unspecified | CPT/HCPCS: 80048; 80061 ==

== ENCOUNTER 2024-08-25 21:54 | Inpatient (IN) | payer MEDICAID, SELFPAY ==
[2024-08-25] VITALS (7 sets, daily range): BP systolic 147–157; BP diastolic 100–110; PULSE 79–95; RESP 16–20; TEMP 36.4; O2SAT 93–95
--- NOTE | 2024-08-25 21:56 | ECG_ITS ---
[facility]24[facility]25 Pat Name: Jovanny Rico Department: Room: Gender: Male Alarm Signaler: : 1980 Requested By: Michelle Bloom Order Number: [id number] Reading MD: Measurements Intervals [place] Rate: 90 P: 5 CT: 125 QRS: 47 QRSD: 106 T: 24 QT: 318 QTc: 391 Interpretive Statements SINUS RHYTHM ST DEVIATION AND MODERATE T-WAVE ABNORMALITY, CONSIDER ANTEROLATERAL ISCHEMIA [-0.1+ mV T-WAVE IN V3-V6] No previous ECG available for comparison [email or web address]
--- NOTE | 2024-08-25 21:56 | XRR_ITS ---
PROCEDURE INFORMATION: Exam: XR Chest Exam date and time: 08/25/2024 10:33 PM Age: 44 years old Clinical indication: Pain; Chest pressure; Prior surgery; Surgery date: 6+ months; Surgery type: Coronary stent; Additional info: Chest pain TECHNIQUE: Imaging protocol: Radiologic exam of the chest. Views: 1 view. COMPARISON: CT angio chest [id number] 05/25/2024 3:18 PM FINDINGS: Lungs: Expiratory. Minimal chronic interstitial prominence. No consolidation. Pleural spaces: Unremarkable. No pleural effusion. No pneumothorax. Heart/Mediastinum: Unremarkable. No cardiomegaly. Bones/joints: Unremarkable. XR/XR chest 1V portable [id number] IMPRESSION: No acute findings.
--- NOTE | 2024-08-25 22:05 | ED_ITS ---
HPI - Chest Pain 2 General: Chief Complaint: Chest Pain Stated Complaint: Chest Pain Time Seen by Provider: 08/25/24 21:57 History of Present Illness: 44-year-old man with a history of [place] artery disease status post stents on Plavix, aortic aneurysm, hypertension hyperlipidemia and COPD who presents to the emergency room with chest pain. This started just about 2 hours ago. Left chest into his left arm. Nitro did not help. This is similar to previous presentations when he had coronary issues. He says nitro usually does not help. And this pain is similar to previous. No cough. No fevers. No altered mental status. No nausea or vomiting. Related Data Home Medications ?Medication ?Instructions ?Recorded ?Confirmed ezetimibe 10 mg tablet 10 mg PO DAILY 05/25/2407/31 evolocumab 140 mg/mL subcutaneous mg SUBCUT .every 2 w eeks 08/12/24 08/12/24 pen injector (Megan Hadley) Previous Rx's ?Medication ?Instructions ?Recorded aspirin 81 mg tablet,delayed 81 mg PO DAILY 30 days #3 0 tabs 01/19/24 release hydralazine 10 mg tablet 10 mg PO TID PRN hypertensio n #30 01/19/24 tabs nitroglycerin 0.4 mg sublingual 0.4 mg sublingual Q5M PRN Chest 01/19/24 tablet Pain #25 tabs bupropion HCl 150 mg 24 hr tablet, 150 mg PO QAM 30 da ys #30 tabs 06/24/24 extended release (Wellbutrin XL) valsartan 320 mg tablet 320 mg PO DAILY 90 days #90 tabs 06/24/24 carvedilol 12.5 mg tablet 12.5 mg PO BID #180 tabs clopidogrel 75 mg tablet 75 mg PO DAILY 90 days #90 t abs 08/12/24 dicyclomine 20 mg tablet 20 mg PO TID PRN esophageal spasm 08/12/24 #30 tabs duloxetine 60 mg capsule,delayed 60 mg PO DAILY 90 day s #90 caps 08/12/24 release (Cymbalta) furosemide 20 mg tablet 20 mg PO DAILY 90 days #90 t abs 08/12/24 gabapentin 600 mg tablet 600 mg PO QID PRN Pain 90 da ys 08/12/24 #360 tabs isosorbide mononitrate 30 mg 30 mg PO QAM 90 days #90 tabs 08/12/24 tablet,extended release 24 hr isosorbide mononitrate 60 mg 60 mg PO DAILY 90 days #9 0 tabs 08/12/24 tablet,extended release 24 hr loratadine 10 mg tablet (Allergy 10 mg PO DAILY PRN al lergy 08/12/24 Relief (loratadine)) symptoms #90 tabs mirtazapine 15 mg tablet 15 mg PO QPM 90 days #90 tab s 08/12/24 ondansetron 4 mg disintegrating 4 mg PO BID PRN nausea and 08/12/24 tablet vomiting #30 tabs pantoprazole 40 mg tablet,delayed 40 mg PO BID 90 days #180 tabs 08/12/24 release (Protonix) Allergies Allergy/AdvReac Type Severity Reaction Status Date / Time No Known Allergies Allergy Verified 08/25/24 22:07 Review of Systems 2 Narrative: Constitutional symptoms: Negative except as documented in HPI. Skin symptoms: Negative except as documented in HPI. Eye symptoms: Negative except as documented in HPI. ENMT symptoms: Negative except as documented in HPI. Respiratory symptoms: Negative except as documented in HPI. Cardiovascular symptoms: Negative except as documented in HPI. Gastrointestinal symptoms: Negative except as documented in HPI. Genitourinary symptoms: Negative except as documented in HPI. Musculoskeletal symptoms: Negative except as documented in HPI. Neurologic symptoms: Negative except as documented in HPI. Psychiatric symptoms: Negative except as documented in HPI. Endocrine symptoms: Negative except as documented in HPI. PFSH ED 2 PFSH: Medical History Unstable angina Aorta aneurysm Chest pain Colon polyp Gastritis and duodenitis Eli esophagus Dilated aortic root Urolithiasis LAURA (generalized anxiety disorder) GERD (gastroesophageal reflux disease) Cervical radiculopathy HTN (hypertension) Dyslipidemia Gross hematuria Staghorn calculus Atherosclerosis of coronary artery Presence of stent in LAD coronary artery Central apnea Tobacco use Gastroesophageal reflux disease COPD (chronic obstructive pulmonary disease) Depression Surgical History Status post laser lithotripsy of ureteral calculus S/P ureteral stent placement Hx of heart artery stent H/O colonoscopy with polypectomy History of cholecystectomy Family History Father Heart disease Alcoholic Lung disease Mother Healthy adult Social History Smoking and tobacco/nicotine status: current every day tobacco/nicotine user cigarettes Packs smoked per day: 0.5 Years cigarettes smoked: 20 Alcohol intake: current Alcohol intake frequency: holidays/special occasions only Substance/Drug Use: never Marital status: Current occupational status: unemployed Physical Exam 2 Narrative: EXAM NARRATIVE: General: Alert, no acute distress. Skin: Warm, dry. Head: Normocephalic, atraumatic. Neck: Supple, trachea midline. Eye: Extraocular movements are intact. Ears, nose, mouth and throat: mucosa moist. Cardiovascular: Regular, Normal peripheral perfusion. Respiratory: Lungs are clear to auscultation, respirations are non-labored, breath sounds are equal, Symmetrical chest wall expansion. Gastrointestinal: Soft, Nontender, Non distended Musculoskeletal: Normal ROM, no deformity. Neurological: Alert and oriented, No focal neurological deficit observed. Psychiatric: Cooperative, appropriate mood & affect. Course 2 Vital Signs: Vital signs: Vital Signs Temperature 97.5 F L 08/25/24 22:03 Pulse Rate 95 08/25/24 23:05 Respiratory Rate 18 08/25/24 23:05 Blood Pressure 153/102 08/25/24 23:05 Pulse Oximetry 95 08/25/24 23:05 Oxygen Delivery Me thod Nasal Cannula 08/25/24 23:05 Oxygen Flow Rate 3 08/25/24 23:05 MDM - Chest Pain Medical Decision Making Differential diagnosis for patient with chest pain includes but is not limited to and based on the above HPI, review of systems and physical exam: Pneumonia. unstable angina. angina. Acute coronary syndrome / NM. Pulmonary embolism. Costochondritis / musculoskeletal. Pleurisy. Pericarditis. Esophageal spasm. Pancreatis. Cholecystitis. Orders placed to evaluate differential diagnosis based on the above differential, HPI and physical exam EKG: Time 2156. Rate 90. Normal sinus rhythm, some fairly significant anterior lateral ST depression that was not present previously, no ectopy, normal VA & QRS intervals, This was reviewed and interpreted by myself the ER physician at 0. Consultation: Time 2207. I spoke with Dr. Franco after reviewing the EKG and previous EKGs. He is coming to see the patient. After he saw the patient he has decided to take him to the Physiotherapy Practice Manager for unstable angina tonight. Physiotherapy Practice Manager activated at 2235.'s after Dr. Franco evaluated the patient. Lab Review: Laboratory results were reviewed and interpreted by myself the emergency room physician. Mild leukocytosis. No anemia. No renal failure. Initial troponin is only 11. Liver enzymes are normal. Chest x-ray: No acute process. No infiltrate. No pneumothorax. This was reviewed and interpreted by myself the emergency room physician. I also reviewed the radiology report. I reviewed the patient's medical record. Reexamination: Patient remained stable. No increased work of breathing. No altered mental status. No focal motor deficits. Morphine helped pain some. Going to the Physiotherapy Practice Manager. Assessment and plan: Unstable angina Coronary artery disease ?Morphine in the emergency room with Vivek. Admitting to the Physiotherapy Practice Manager. Dr. Franco saw the patient here in the emergency room -I discussed the patient with the blown film extrusion operator on-call who was taking the patient to the Physiotherapy Practice Manager. - Discussed findings and plan with patient. Answered any questions. - All laboratory values were reviewed and interpreted personally by myself, the ER physician - All imaging was reviewed and interpreted personally by myself, the ER physician. - Evaluation and treatment of this problem were appropriate in the emergency setting Lab Data 08/25/24 22:30 08/25/24 22:30 Radiology Impressions Chest X-Ray 08/25/24 21:56 IMPRESSION: No acute findings. Laboratory Results WBC 11.21 10^3/uL (3.29-11.43) 08/25/24 22: RBC 4.90 10^6/uL (3.85-5.65) 08/25/24 22:30 Hgb 14.50 g/dL (11.27-16.99) 08/25/24 22: Hct 44.3 % (37-53) 08/25/24 22: MCV 90.4 fl (82-101) 08/25/24 22:30 MCH 29.6 pg (27-33) 08/25/24 22: MCHC 32.7 g/dL (30-55) 08/25/24 22: RDW 14.3 % (12.1-15.1) 08/25/24 22:30 Plt Count 304 10^3/cmm (157-399) 08/25/24 22: MPV 9.4 fL (7.4-10.4) 08/25/24 22: Neut % (Auto) 63.5 % 08/25/24 22: Lymph % (Auto) 24.3 % 08/25/24 22:30 [place] % (Auto) 6.7 % 08/25/24: Eos % (Auto) 4.3 % 08/25/24: Baso % (Auto) 0.6 % 08/25/24: Neut # (Auto) 7.12 10^3/uL (1.8-7.7) 08/25/24: Lymph # (Auto) 2.7 10^3/uL (0.8-4.8) 08/25/24: [place] # (Auto) 0.8 10^3/uL (0.2-0.9) 08/25/24: Eos # (Auto) 0.5 10^3/uL (0.0-0.8) 08/25/24: Baso # (Auto) 0.1 10^3/uL (0.0-0.1) 08/25/24: Nucleated RBC % (auto) 0 % 08/25/24: Nucleated RBCs # 0.0 /100WBC 08/25/24: Sodium 143 mmol/L (136-145) 08/25/24: Potassium 4.1 mmol/L (3.5-5.1) 08/25/24: Chloride 105 mmol/L (98-107) 08/25/24: Carbon Dioxide 25 mmol/L (22-29) 08/25/24: Anion Gap 17.1 (5-19) 08/25/24: BUN 14 mg/dL (6-20) 08/25/24: Creatinine 0.8 mg/dL (0.7-1.2) 08/25/24: GFR Calculation 105.5 mL/min (90-130) 08/25/24: Glucose 111 mg/dL (65-115) 08/25/24:30 Calculated Osmolality 297 mOsm/kg (285-295) H 08/25/24 22:30 Calcium 9.9 mg/dL (8.5-10.5) 08/25/24 22:30 Total Bilirubin 0.3 mg/dL (0.15-1.2) 08/25/24 22:30 AST 21 U/L (0-40) 08/25/24 22:30 ALT 37 U/L (0-41) 08/25/24 22: Alkaline Phosphatase 136 U/L (40-130) H 08/25/24 22:30 Troponin T Baseline 11 ng/L (0-15) 08/25/24 22:30 Total Protein 6.9 g/dL (6.6-8.7) 08/25/24 22: Albumin 4.3 g/dL (3.5-5.2) 08/25/24 22:30 Globulin 2.6 g/dL (1.3-4.6) 08/25/24 22:30 All radiology interpretation(s) finalized by discharge Discharge Plan Discharge Patient Disposition: Admitted As Inpatient Clinical Impression: Unstable angina, Coronary artery disease Condition: Stable Coding Level of Care Code ED Syrup Mixer Helper for Clair Mathew
[2024-08-25] MEDS: aspirin 81 mg Chew Tablet 324 MG PO (22:12)
[2024-08-25] MEDS: ondansetron 2 mg/ML SDV 2 mL 4 MG IVP (22:18)
[2024-08-25] MEDS: morphine 4 mg/mL SDV 1 mL IVP (22:19)
--- NOTE | 2024-08-25 22:27 | P.CONIM_ITS ---
Providers/Reason For Consult Primary Care Provider: Anna Roach MD History of Present Illness History of Present Illness Jovanny Rico is a 44 year old male Review of Systems [facility] [place]: Denies: joint warmth Medications/Allergies Home Medications ?Medication ?Instructions ?Recorded ?Confirmed ?Last Taken ?Type aspirin 81 mg tablet,delayed 81 mg PO DAILY 30 days #3 0 tabs 01/19/24 08/12/24 05/25/24 08:00 Rx release hydralazine 10 mg tablet 10 mg PO TID PRN hypertensio n #30 01/19/24 08/12/24 Unknown Rx tabs nitroglycerin 0.4 mg sublingual 0.4 mg sublingual Q5M PRN Chest 01/19/24 08/12/24 Unknown Rx tablet Pain #25 tabs ezetimibe 10 mg tablet 10 mg PO DAILY 05/25/24 0506/2405/25/24 History bupropion HCl 150 mg 24 hr tablet, 150 mg PO QAM 30 da ys #30 tabs 06/24/24 08/12/24 Unknown Rx extended release (Wellbutrin XL) valsartan 320 mg tablet 320 mg PO DAILY 90 days #90 tabs 06/24/24 08/12/24 Unknown Rx carvedilol 12.5 mg tablet 12.5 mg PO BID #180 tabs 08/12/24 Unknown Rx clopidogrel 75 mg tablet 75 mg PO DAILY 90 days #90 t abs 08/12/24 08/12/24 Unknown Rx dicyclomine 20 mg tablet 20 mg PO TID PRN esophageal spasm 08/12/24 08/12/24 Unknown Rx #30 tabs duloxetine 60 mg capsule,delayed 60 mg PO DAILY 90 day s #90 caps 08/12/24 08/12/24 Unknown Rx release (Cymbalta) evolocumab 140 mg/mL subcutaneous mg SUBCUT .every 2 w eeks 08/12/24 08/12/24 Unknown History pen injector (Repatha [employer]) furosemide 20 mg tablet 20 mg PO DAILY 90 days #90 t abs 08/12/24 08/12/24 Unknown Rx gabapentin 600 mg tablet 600 mg PO QID PRN Pain 90 da ys 08/12/24 08/12/24 Unknown Rx #360 tabs isosorbide mononitrate 30 mg 30 mg PO QAM 90 days #90 tabs 08/12/24 08/12/24 Unknown Rx tablet,extended release 24 hr isosorbide mononitrate 60 mg 60 mg PO DAILY 90 days #9 0 tabs 08/12/24 08/12/24 Unknown Rx tablet,extended release 24 hr loratadine 10 mg tablet (Allergy 10 mg PO DAILY PRN al lergy 08/12/24 08/12/24 Unknown Rx Relief (loratadine)) symptoms #90 tabs mirtazapine 15 mg tablet 15 mg PO QPM 90 days #90 tab s 08/12/24 08/12/24 Unknown Rx ondansetron 4 mg disintegrating 4 mg PO BID PRN nausea and 08/12/24 08/12/24 Unknown Rx tablet vomiting #30 tabs pantoprazole 40 mg tablet,delayed 40 mg PO BID 90 days #180 tabs 08/12/24 08/12/24 Unknown Rx release (Protonix) Allergies Allergy/AdvReac Type Severity Reaction Status Date / Time No Known Allergies Allergy Verified 08/25/24 22:07 PFSH Acute PFSH: Medical History Unstable angina Aorta aneurysm Chest pain Colon polyp Gastritis and duodenitis Eli esophagus Dilated aortic root Urolithiasis LAURA (generalized anxiety disorder) GERD (gastroesophageal reflux disease) Cervical radiculopathy HTN (hypertension) Dyslipidemia Gross hematuria Staghorn calculus Atherosclerosis of coronary artery Presence of stent in LAD coronary artery Central apnea Tobacco use Gastroesophageal reflux disease COPD (chronic obstructive pulmonary disease) Depression Surgical History Status post laser lithotripsy of ureteral calculus S/P ureteral stent placement Hx of heart artery stent H/O colonoscopy with polypectomy History of cholecystectomy Family History Father Heart disease Alcoholic Lung disease Mother Healthy adult Social History Smoking and tobacco/nicotine status: current every day tobacco/nicotine user cigarettes Packs smoked per day: 0.5 Years cigarettes smoked: 20 Alcohol intake: current Alcohol intake frequency: holidays/special occasions only Substance/Drug Use: never Marital status: Current occupational status: unemployed Dietary Habits: Current diet type/program: regular Caffeine: Yes Caffeine intake frequency: carbonated beverages and coffee Exercise: Physical activity functional status: independent ambulation and normal ROM and activity Safety: Seatbelt use: always Home Safety: Working smoke detector in home: Yes Personal Safety: Do you feel safe at home: Yes Victim of physical abuse: No Victim of emotional abuse: No Victim of sexual abuse: No Would you like help information on resources?: No Vitals/I&O/Wt Last Vital Signs Temp 97.5 F L 08/25/24 22:03 Pulse 79 08/25/24 22:20 Resp 16 08/25/24 22:20 BP 147/110 08/25/24 22:20 Pulse Ox 93 08/25/24 22:20 O2 Del Method Room Air 08/25/24 22:20 Weight last 48 hrs Weight 230 lb A&P PDMP PDMP Reviewed: Not Reviewed Coding Level of Care Code Acute Code for Clair Mathew
[2024-08-25 22:35] LABS: Basophils # 0.1 10^3/uL (0.0-0.1); Basophils % 0.6 %; Eosinophils # 0.5 10^3/uL (0.0-0.8); Eosinophils % 4.3 %; Hematocrit 44.3 % (37-53); Lymphocytes # 2.7 10^3/uL (0.8-4.8); Lymphocytes % 24.3 %; Mean Corpuscular HGB Conc 32.7 g/dL (30-55); Mean Corpuscular Hemoglobin 29.6 pg (27-33); Mean Corpuscular Volume 90.4 fl (82-101); Mean Platelet Volume 9.4 fL (7.4-10.4); Monocytes # 0.8 10^3/uL (0.2-0.9); Monocytes % 6.7 %; Neutrophils # 7.12 10^3/uL (1.8-7.7); Neutrophils % 63.5 %; Nucleated Red Blood Cells % 0 %; Platelet Count 304 10^3/cmm (157-399); Red Cell Distribution Width 14.3 % (12.1-15.1); White Blood Count 11.21 10^3/uL (3.29-11.43)
[2024-08-25] MEDS: heparin 5,000 unit/mL INJ 1 mL 5000 UNIT IVP (22:44)
[2024-08-25] MEDS: nitroglycerin 1 gm/inch oint Pkt 1 INCH TOPICAL (22:44)
[2024-08-25 22:53] LABS: Troponin(5th) Baseline 11 ng/L (0-15)
[2024-08-25 22:54] LABS: Alanine Aminotransferase 37 U/L (0-41); Albumin Level 4.3 g/dL (3.5-5.2); Alkaline Phosphatase 136 U/L (40-130); Aspartate Amino Transferase 21 U/L (0-40); Blood Urea Nitrogen 14 mg/dL (6-20); Calcium 9.9 mg/dL (8.5-10.5); Carbon Dioxide 25 mmol/L (22-29); Chloride 105 mmol/L (98-107); Creatinine Clr Calc Pharmacy 148.6835; Globulin 2.6 g/dL (1.3-4.6); Glomerular Filtration Rate 105.5 mL/min (90-130); Glucose 111 mg/dL (65-115); Osmolality Calculated 297 mOsm/kg (285-295); Sodium 143 mmol/L (136-145); Total Bilirubin 0.3 mg/dL (0.15-1.2); Total Protein 6.9 g/dL (6.6-8.7)
[2024-08-25 22:55] LABS: Anion Gap 17.1 (5-19); Potassium 4.1 mmol/L (3.5-5.1)
--- NOTE | 2024-08-25 22:58 | P.HP_ITS ---
Providers/Chief Complaint 2 Admitting Physician: Jesus Franco MD Primary Care Provider: Anna Roach MD Chief Complaint: Chest Pain History of Present Illness Jovanny Rico is a 44 year old male past medical history significant for hypertension hyperlipidemia coronary artery disease ectatic aneurysmal coronaries and ascending aortic aneurysm 4.5 cm at the annulus as per last CTA last year who continues to smoke presented with chest pain for the last 1 hour. According the patient he was watching TV all of a sudden started feeling chest pain he took shower but chest pain does not go away despite of taking nitroglycerin and he started having night sweats therefore decided to come to the ER. Twelve-lead EKG in the ER was showing new T wave inversion in the anterior lateral leads suggestive of possible ischemia when compared to the prior EKG. Since patient is high risk for acute coronary syndrome and because of the fact he has ectatic aneurysmal coronary artery disease with moderate mid LAD prior stenosis which was not significant by IFR in December of last year I have strong suspicion that patient is going through acute coronary syndrome with unstable non-ST elevation UT or angina therefore given dynamic EKG changes I will proceed with left heart cath now. I have detailed discussion with the patient and he agrees to it. Medications/Allergies Home Medications ?Medication ?Instructions ?Recorded ?Confirmed ?Last Taken ?Type aspirin 81 mg tablet,delayed 81 mg PO DAILY 30 days #3 0 tabs 01/19/24 08/12/24 05/25/24 08:00 Rx release hydralazine 10 mg tablet 10 mg PO TID PRN hypertensio n #30 01/19/24 08/12/24 Unknown Rx tabs nitroglycerin 0.4 mg sublingual 0.4 mg sublingual Q5M PRN Chest 01/19/24 08/12/24 Unknown Rx tablet Pain #25 tabs ezetimibe 10 mg tablet 10 mg PO DAILY 05/25/2407/3105/25/24 History bupropion HCl 150 mg 24 hr tablet, 150 mg PO QAM 30 da ys #30 tabs 06/24/24 08/12/24 Unknown Rx extended release (Wellbutrin XL) valsartan 320 mg tablet 320 mg PO DAILY 90 days #90 tabs 06/24/24 08/12/24 Unknown Rx carvedilol 12.5 mg tablet 12.5 mg PO BID #180 tabs 08/12/24 Unknown Rx clopidogrel 75 mg tablet 75 mg PO DAILY 90 days #90 t abs 08/12/24 08/12/24 Unknown Rx dicyclomine 20 mg tablet 20 mg PO TID PRN esophageal spasm 08/12/24 08/12/24 Unknown Rx #30 tabs duloxetine 60 mg capsule,delayed 60 mg PO DAILY 90 day s #90 caps 08/12/24 08/12/24 Unknown Rx release (Cymbalta) evolocumab 140 mg/mL subcutaneous mg SUBCUT .every 2 w eeks 08/12/24 08/12/24 Unknown History pen injector (Megan Hadley) furosemide 20 mg tablet 20 mg PO DAILY 90 days #90 t abs 08/12/24 08/12/24 Unknown Rx gabapentin 600 mg tablet 600 mg PO QID PRN Pain 90 da ys 08/12/24 08/12/24 Unknown Rx #360 tabs isosorbide mononitrate 30 mg 30 mg PO QAM 90 days #90 tabs 08/12/24 08/12/24 Unknown Rx tablet,extended release 24 hr isosorbide mononitrate 60 mg 60 mg PO DAILY 90 days #9 0 tabs 08/12/24 08/12/24 Unknown Rx tablet,extended release 24 hr loratadine 10 mg tablet (Allergy 10 mg PO DAILY PRN al lergy 08/12/24 08/12/24 Unknown Rx Relief (loratadine)) symptoms #90 tabs mirtazapine 15 mg tablet 15 mg PO QPM 90 days #90 tab s 08/12/24 08/12/24 Unknown Rx ondansetron 4 mg disintegrating 4 mg PO BID PRN nausea and 08/12/24 08/12/24 Unknown Rx tablet vomiting #30 tabs pantoprazole 40 mg tablet,delayed 40 mg PO BID 90 days #180 tabs 08/12/24 08/12/24 Unknown Rx release (Protonix) Allergies Allergy/AdvReac Type Severity Reaction Status Date / Time No Known Allergies Allergy Verified 08/25/24 22:07 PFSH Acute 2 PFSH: Medical History Unstable angina Aorta aneurysm Chest pain Colon polyp Gastritis and duodenitis Eli esophagus Dilated aortic root Urolithiasis LAURA (generalized anxiety disorder) GERD (gastroesophageal reflux disease) Cervical radiculopathy HTN (hypertension) Dyslipidemia Gross hematuria Staghorn calculus Atherosclerosis of coronary artery Presence of stent in LAD coronary artery Central apnea Tobacco use Gastroesophageal reflux disease COPD (chronic obstructive pulmonary disease) Depression Surgical History Status post laser lithotripsy of ureteral calculus S/P ureteral stent placement Hx of heart artery stent H/O colonoscopy with polypectomy History of cholecystectomy Family History Father Heart disease Alcoholic Lung disease Mother Healthy adult Social History Smoking and tobacco/nicotine status: current every day tobacco/nicotine user cigarettes Packs smoked per day: 0.5 Years cigarettes smoked: 20 Alcohol intake: current Alcohol intake frequency: holidays/special occasions only Substance/Drug Use: never Marital status: Current occupational status: unemployed Vitals/I&O/Wt Last Vital Signs Temp 97.5 F L 08/25/24 22:03 Pulse 86 08/25/24 22:25 Resp 16 08/25/24 22:25 BP 147/100 08/25/24 22:25 Pulse Ox 93 08/25/24 22:25 O2 Del Method Room Air 08/25/24 22:25 Weight last 48 hrs Weight 230 lb Physical Exam 2 Const: OTHER: GENERAL: Patient is alert, awake and oriented x3. In mild distress HEART: Regular S1 and S2. No murmur, rub or gallop. LUNGS: Clear to auscultate bilaterally. CENTRAL NERVOUS SYSTEM: Grossly nonfocal. EXTREMITIES: Lower extremities with out edema bilaterally. Data 08/25/24 22:30 08/25/24 22:30 A&P Assessment and plan (1) Unstable angina: (2) Coronary artery disease: (3) Aorta aneurysm: (4) HTN (hypertension): (5) Dyslipidemia: Plan Given patient condition with new EKG changes suggestive of ongoing ischemia along with persistent chest pain I will proceed with urgent left heart catheterization. Patient will be given IV heparin continue aspirin statin beta- patrick and Plavix. Nitropaste 1 inch for now. Patient has been explained all risk-benefit and alternative for the procedure he understand risk of stroke major bleed urgent emergent bypass surgery vascular injury contrast induced nephropathy pseudoaneurysm. He would like to proceed with it. PDMP PDMP Reviewed: Not Reviewed Attestations 2 Medical Necessity Statement*: I am expecting his stay to cross more than 2 midnights he will be admitting as inpatient for acute coronary syndrome Coding Level of Care Code Acute Code for Chg Fwd Diagnoses Unstable angina I20.0 Coronary artery disease I25.10 Thoracic aortic aneurysm without rupture I71.2 Aortic location: thoracic aorta Presence of rupture: without rupture Primary hypertension I10 Hypertension type: primary hypertension Dyslipidemia E78.5
--- NOTE | 2024-08-25 23:17 | W.PM.OPSUD ---
Surgery/Procedure H&P Update DATE OF PROCEDURE: August 25, 2024 DATE H&P PERFORMED: 08/25/24 H&P UPDATE INFORMATION: I have reviewed H&P completed within last 30 days, I have examined patient prior to procedure and No changes to prior documentation PREOP DIAGNOSIS: Acute coronary syndrome PRIMARY INDICATION FOR PROCEDURE: Unstable angina/non-STEMI/EKG change PHYSICAL EXAM: alert, oriented x 3, clear to auscultation bilaterally, regular rate & rhythm and operative site marked AIRWAY EVAL/ANESTHESIA PLAN: ASA II, Risks, benefits & alternatives of sedation and/or procedure discussed and Patient agrees to continue as planned ADDITIONAL INFORMATION: Patient has been explained all risk-benefit and alternative for the procedure. Patient understand 2% risk of stroke major bleed. Patient understand 5% risk of urgent emergent vascular or bypass surgery pseudoaneurysm hematoma major minor bleed transfusion contrast induced nephropathy. Patient would like to proceed with the after clearly understanding.
--- NOTE | 2024-08-25 23:56 | ECG_ITS ---
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
[2024-08-26] VITALS (18 sets, daily range): BP systolic 103–133; BP diastolic 70–100; PULSE 63–92; RESP 13–22; TEMP 36.9–37; O2SAT 87–94; BMI 31.1
--- NOTE | 2024-08-26 00:05 | PM.PROC ---
Procedure Note: Date of procedure: 08/26/24 Pre-procedure diagnosis: [id number] M Procedure: Left heart cath was performed Left main is large caliber vessel with luminal irregularity LAD is aneurysmal ectatic large vessel with patent previously placed stent in the mid to distal however in the proximal segment and before that proximal segment there is high-grade 80% hazy stenosis which is the culprit Diagonal branch is moderate-sized in caliber large vessel with mild to moderate stenosis not significant Left circumflex is large caliber aneurysmal vessel without significant stenosis RCA is medium size moderate vessel without significant stenosis Due to tortuosity of the subclavian LV gram was not performed PCI to mid LAD pre and postdilated with balloon angioplasty using 5.0 x 15 mm [place] drug-eluting stent postdilated with 5.0 x 8 mm noncompliant balloon at high RAMIRO of 20 mmHg excellent angiographic result with KELLEE-3 flow was noted at the end of the case. Plan: Reload patient with Plavix 300 mg, give patient 325 mg for aspirin patient is already on 81 mg of aspirin at home Give IV Lasix 40 mg once Patient is allergic to statin Continue Zetia Echocardiogram in the morning Full note to be dictated Coding Level of Care Code Acute Code for Chg Fwd
--- NOTE | 2024-08-26 01:11 | PC.NURSE ---
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 TR band in place on right wrist, no hematoma present. Educated patient on post cath restriction, s/s to report. Call light and bedside table within reach.
[2024-08-26] MEDS: clopidogrel 300 mg Tablet PO (01:39)
[2024-08-26] MEDS: FUROsemide 10 mg/mL SDV 4mL 40 MG IVP ×2 (02:15→09:37)
--- NOTE | 2024-08-26 03:30 | ECG_ITS ---
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
[2024-08-26 06:08] LABS: Glucose Point of Care 107 mg/dL (70-110)
[2024-08-26] MEDS: carvedilol 12.5 mg Tablet PO (09:37)
[2024-08-26] MEDS: ezetimibe 10 mg Tablet PO (09:37)
[2024-08-26] MEDS: clopidogrel 75 mg Tablet PO (09:37)
--- NOTE | 2024-08-26 10:28 | P.PN_ITS ---
Subjective 2 Subjective: No chest pain since coronary angiogram earlier this morning. Will discontinue IV fluids. He may discharge home later today if echocardiogram and labs are normal. Vitals/I&O/Wt Last Vital Signs Temp 98.4 F 08/26/24 08:15 Pulse 82 08/26/24 08:15 Resp 16 08/26/24 08:15 BP 126/89 08/26/24 08:15 Pulse Ox 94 08/26/24 08:15 O2 Del Method Nasal Cannula 08/26/24 09:55 O2 Flow Rate 3 08/26/24 08:15 08/25/24 08/26/24 08/26/24 22:59 06:59 14:59 Intake Total 240 / 240 Output Total 600 / 600 Balance -600 / -600 240 / 240 Weight last 48 hrs Weight 230 lb Weight 230 lb Physical Exam 2 Const: COMMON NORMALS: no acute distress and patient oriented x3 GENERAL APPEARANCE: cooperative ORIENTATION/CONSCIOUSNESS: Yes awake, Yes oriented to person, Yes oriented to place and Yes oriented to time Chest: COMMONS NORMALS: normal inspection of the chest and normal palpation of entire chest wall CHEST: Yes Symmetrical chest wall rise Resp: COMMON NORMALS: normal respiratory effort, No retractions, No use of accessory muscles and clear to auscultation bilaterally AUSCULTATION: clear to auscultation bilaterally Cardio: COMMON NORMALS: regular rate, regular rhythm, S1 normal heart sound present, S2 normal heart sound present, No gallops present (Cardio), No clicks present (Cardio), No murmurs present (Cardio) and No rub (Cardio) RATE: r egular rate RHYTHM: regular rhythm HEART SOUNDS: S1 normal heart sound present and S2 normal heart sound present PERIPHERAL PULSES: radial pulses present positive right 2+ and femoral pulses present positive right 2+ Neuro: COMMON NORMALS: patient oriented x3 and moves all extremities S ENSORIUM/ORIENTATION: Yes oriented to person, Yes oriented to place and Yes oriented to time Skin: WOUNDS: Yes surgical site (no hematoma palpable) Details: no odor Data 08/26/24 10:42 08/26/24 10:42 A&P Assessment and plan (1) Unstable angina: (2) Coronary artery disease: (3) Aorta aneurysm: (4) HTN (hypertension): (5) Dyslipidemia: Plan He is s/p PCI of the proximal LAD. Will check BMP, discontinue IV fluid. He has an allergy to statin. Will continue aspirin and Plavix today, resume his home medications if renal function is normal. Will await reading of echocardiogram. PDMP PDMP Reviewed: Not Reviewed Attestations 2 Medical Necessity Statement*: possible discharge later today Coding Level of Care Code Acute Code for Chg Fwd Diagnoses Unstable angina I20.0 Coronary artery disease I25.10 Thoracic aortic aneurysm without rupture I71.2 Aortic location: thoracic aorta Presence of rupture: without rupture Primary hypertension I10 Hypertension type: primary hypertension Dyslipidemia E78.5
[2024-08-26 10:58] LABS: Basophils # 0.1 10^3/uL (0.0-0.1); Basophils % 0.8 %; Eosinophils # 0.4 10^3/uL (0.0-0.8); Eosinophils % 4.4 %; Hematocrit 46.2 % (37-53); Lymphocytes # 1.7 10^3/uL (0.8-4.8); Lymphocytes % 18.1 %; Mean Corpuscular Hemoglobin 29.5 pg (27-33); Mean Corpuscular Volume 92.2 fl (82-101); Mean Platelet Volume 9.5 fL (7.4-10.4); Monocytes % 10.9 %; Neutrophils # 6.22 10^3/uL (1.8-7.7); Neutrophils % 65.5 %; Nucleated Red Blood Cells % 0 %; Platelet Count 279 10^3/cmm (157-399); Red Blood Count 5.01 10^6/uL (3.85-5.65); Red Cell Distribution Width 14.5 % (12.1-15.1); White Blood Count 9.51 10^3/uL (3.29-11.43)
[2024-08-26 11:18] LABS: Anion Gap 17.7 (5-19); Blood Urea Nitrogen 12 mg/dL (6-20); Calcium 9.6 mg/dL (8.5-10.5); Carbon Dioxide 26 mmol/L (22-29); Chloride 100 mmol/L (98-107); Creatinine Clr Calc Pharmacy 132.1631; Glomerular Filtration Rate 92.1 mL/min (90-130); Glucose 102 mg/dL (65-115); Osmolality Calculated 290 mOsm/kg (285-295); Potassium 3.7 mmol/L (3.5-5.1); Sodium 140 mmol/L (136-145)
--- NOTE | 2024-08-26 15:47 | PM.DCS ---
Discharge Providers Date of Admission: 08/25/2024 Date of Discharge: August 26, 2024 Attending Provider at Admission: Jesus Franco MD Attending Provider at Discharge: Jesus Franco MD Primary Care Provider: Anna Roach MD Diagnoses at Discharge Discharge Diagnosis (1) Unstable angina: Status: Acute (2) Coronary artery disease: Status: Acute (3) Aorta aneurysm: Status: Acute Qualifiers: Aortic location: thoracic aorta Presence of rupture: without rupture Qualified Code(s): I71.2 - Thoracic aortic aneurysm, without rupture (4) HTN (hypertension): Status: Acute Qualifiers: Hypertension type: primary hypertension Qualified Code(s): I10 - Essential (primary) hypertension (5) Dyslipidemia: Status: Acute Reason for Visit Reason for Visit: Chest Pain Brief History: Jovanny Rico is a 44 year old male past medical history significant for hypertension hyperlipidemia coronary artery disease ectatic aneurysmal coronaries and ascending aortic aneurysm 4.5 cm at the annulus as per last CTA last year who continues to smoke presented with chest pain for the last 1 hour. According the patient he was watching TV all of a sudden started feeling chest pain he took shower but chest pain does not go away despite of taking nitroglycerin and he started having night sweats therefore decided to come to the ER. Twelve-lead EKG in the ER was showing new T wave inversion in the anterior lateral leads suggestive of possible ischemia when compared to the prior EKG. Since patient is high risk for acute coronary syndrome and because of the fact he has ectatic aneurysmal coronary artery disease with moderate mid LAD prior stenosis which was not significant by IFR in December of last year I have strong suspicion that patient is going through acute coronary syndrome with unstable non-ST elevation NH or angina therefore given dynamic EKG changes I will proceed with left heart cath now. I have detailed discussion with the patient and he agrees to it. Hospital Course Hospital Course He underwent coronary angiogram earlier this morning finding previously placed stent in the mid to distal LAD which was patent however proximal to that stent significant stenosis present. Mild to moderate diagonal stenosis not significant, left circumflex and RCA without significant stenosis. The LAD lesion was treated with JADA x 1. He has done well over the course of the day, no recurrence of chest pain. Recheck of labs this morning showed normal renal function postprocedure. He is eager to go home this afternoon. He can continue his home medications including carvedilol, isosorbide, losartan, Lasix. He should take a 40 mg dose of Lasix for the next 2 days then resume 20 mg daily. Continue aspirin and Plavix. No complications with cath site. No lifting over 5 pounds for the next 4 days. He can follow-up with cardiology clinic in 7 to 10 days. Physical Exam Const: COMMON NORMALS: no acute distress and patient oriented x3 GENERAL APPEARANCE: cooperative ORIENTATION/CONSCIOUSNESS: Yes awake, Yes oriented to person, Yes oriented to place and Yes oriented to time Chest: COMMONS NORMALS: normal inspection of the chest and normal palpation of entire chest wall CHEST: Yes Symmetrical chest wall rise Resp: COMMON NORMALS: normal respiratory effort, No retractions, No use of accessory muscles and clear to auscultation bilaterally AUSCULTATION: clear to auscultation bilaterally Cardio: COMMON NORMALS: regular rate, regular rhythm, S1 normal heart sound present, S2 normal heart sound present, No gallops present (Cardio), No clicks present (Cardio), No murmurs present (Cardio) and No rub (Cardio) RATE: regular rate RHYTHM: regular rhythm HEART SOUNDS: S1 normal heart sound present and S2 normal heart sound present PERIPHERAL PULSES: radial pulses present positive right 2+ and femoral pulses present positive right 2+ Neuro: COMMON NORMALS: patient oriented x3 and moves all extremities SENSORIUM/ORIENTATION: Yes oriented to person, Yes oriented to place and Yes oriented to time Skin: WOUNDS: Yes surgical site (no hematoma palpable) Details: no odor Discharge Data Studies Completed and Pending Completed Studies During Hospitalization Category Date Time Status XR chest 1V portable [id number] Stat Exams 08/25/24 21:56 Completed Pending at discharge Category Date Time 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 Laboratory Results WBC 9.51 10^3/uL (3.29-11.43) 08/26/24 10:42 RBC 5.01 10^6/uL (3.85-5.65) 08/26/24 10:42 Hgb 14.80 g/dL (11.27-16.99) 08/26/24 10:42 Hct 46.2 % (37-53) 08/26/24 10:42 MCV 92.2 fl (82-101) 08/26/24 10:42 MCH 29.5 pg (27-33) 08/26/24 10:42 MCHC 32.0 g/dL (30-55) 08/26/24 10:42 RDW 14.5 % (12.1-15.1) 08/26/24 10:42 Plt Count 279 10^3/cmm (157-399) 08/26/24 10:42 MPV 9.5 fL (7.4-10.4) 08/26/24 10:42 Neut % (Auto) 65.5 % 08/26/24 10:42 Lymph % (Auto) 18.1 % 08/26/24 10:42 [place] % (Auto) 10.9 % 08/26/24 10:42 Eos % (Auto) 4.4 % 08/26/24 10:42 Baso % (Auto) 0.8 % 08/26/24 10:42 Neut # (Auto) 6.22 10^3/uL (1.8-7.7) 08/26/24 10:42 Lymph # (Auto) 1.7 10^3/uL (0.8-4.8) 08/26/24 10:42 [place] # (Auto) 1.0 10^3/uL (0.2-0.9) H 08/26/24 10:42 Eos # (Auto) 0.4 10^3/uL (0.0-0.8) 08/26/24 10:42 Baso # (Auto) 0.1 10^3/uL (0.0-0.1) 08/26/24 10:42 Nucleated RBC % (auto) 0 % 08/26/24 10:42 Nucleated RBCs # 0.0 /100WBC 08/26/24 10:42 Sodium 140 mmol/L (136-145) 08/26/24 10:42 Potassium 3.7 mmol/L (3.5-5.1) 08/26/24 10:42 Chloride 100 mmol/L (98-107) 08/26/24 10:42 Carbon Dioxide 26 mmol/L (22-29) 08/26/24 10:42 Anion Gap 17.7 (5-19) 08/26/24 10:42 BUN 12 mg/dL (6-20) 08/26/24 10:42 Creatinine 0.9 mg/dL (0.7-1.2) 08/26/24 10:42 GFR Calculation 92.1 mL/min (90-130) 08/26/24 10:42 Glucose 102 mg/dL (65-115) 08/26/24 10:42 POC Glucose 107 mg/dL (70-110) 08/26/24 06:05 Calculated Osmolality 290 mOsm/kg (285-295) 08/26/24 10:42 Calcium 9.6 mg/dL (8.5-10.5) 08/26/24 10:42 Total Bilirubin 0.3 mg/dL (0.15-1.2) 08/25/24 22:30 AST 21 U/L (0-40) 08/25/24 22:30 ALT 37 U/L (0-41) 08/25/24 22:30 Alkaline Phosphatase 136 U/L (40-130) H 08/25/24 22:30 Troponin T Baseline 11 ng/L (0-15) 08/25/24 22:30 Total Protein 6.9 g/dL (6.6-8.7) 08/25/24 22:30 Albumin 4.3 g/dL (3.5-5.2) 08/25/24 22:30 Globulin 2.6 g/dL (1.3-4.6) 08/25/24 22:30 Vitals Last Vital Signs Temp 98.6 F 08/26/24 12:00 Pulse 82 08/26/24 12:00 Resp 20 H 08/26/24 12:00 BP 113/70 08/26/24 12:00 Pulse Ox 93 08/26/24 12:00 O2 Del Method Nasal Cannula 08/26/24 12:00 O2 Flow Rate 2 08/26/24 12:00 Discharge Plan Discharge Patient Disposition: Home Condition: Stable Prescriptions: Continued valsartan 320 mg tablet 320 mg PO DAILY 90 Days Qty: 90 3RF bupropion HCl [Wellbutrin XL] 150 mg tablet extended release 24 hr 150 mg PO QAM 30 Days Qty: 30 5RF Repatha SureClick 140 mg/mL pen injector 140 mg SUBCUT .every 2 weeks loratadine [Allergy Relief (loratadine)] 10 mg tablet 10 mg PO DAILY PRN (Reason: allergy symptoms) Qty: 90 3RF carvedilol 12.5 mg tablet 12.5 mg PO BID Qty: 180 1RF Rx Instructions: dose increase clopidogrel 75 mg tablet 75 mg PO DAILY 90 Days Qty: 90 2RF dicyclomine 20 mg tablet 20 mg PO TID PRN (Reason: esophageal spasm) Qty: 30 5RF duloxetine [Cymbalta] 60 mg capsule,delayed release(DR/EC) 60 mg PO DAILY 90 Days Qty: 90 2RF furosemide 20 mg tablet 20 mg PO DAILY 90 Days Qty: 90 2RF gabapentin 600 mg tablet 600 mg PO QID PRN (Reason: Pain) 90 Days Qty: 360 1RF isosorbide mononitrate 60 mg tablet extended release 24 hr 60 mg PO DAILY 90 Days Qty: 90 1RF Rx Instructions: take with 30mg to equal 90mg daily isosorbide mononitrate 30 mg tablet extended release 24 hr 30 mg PO QAM 90 Days Qty: 90 1RF Rx Instructions: take with 60mg to equal 90mg daily mirtazapine 15 mg tablet 15 mg PO QPM 90 Days Qty: 90 1RF ondansetron 4 mg tablet,disintegrating 4 mg PO BID PRN (Reason: nausea and vomiting) Qty: 30 5RF pantoprazole [Protonix] 40 mg tablet,delayed release (DR/EC) 40 mg PO BID 90 Days Qty: 180 1RF atorvastatin 80 mg tablet 80 mg PO BEDTIME hydralazine 10 mg tablet 10 mg PO TID PRN (Reason: hypertension) Qty: 30 2RF Rx Instructions: PRN high blood pressure (>160/>100) for 15 min aspirin 81 mg tablet,delayed release (DR/EC) 81 mg PO DAILY 30 Days Qty: 30 0RF nitroglycerin 0.4 mg tablet, sublingual 0.4 mg sublingual Q5M PRN (Reason: Chest Pain) Qty: 25 0RF Rx Instructions: do not exceed 3 doses per episode ezetimibe 10 mg tablet 10 mg PO DAILY Discharge Orders: Discharge Order (Routine); Ordered 05/27/25 Ordered By: Alessandra Zelaya Referrals: Alessandra Zelaya FNP [Nurse Practitioner, Cardiology] - 09/02/24 8:30 am Anna Roach MD [Primary Care Provider, Family Practice] - 09/01/24 11:00 am Discharge Diet: Advance as tolerated Discharge Activity: Increase activity as tolerated Patient Instructions: Coronary Artery Disease (DC), Coronary Angioplasty (DC), Chest Pain Stoplight, Opioid Safety, Post Angiogram Home Care Instructions Activity Restrictions/Additional Instructions: No lifting over 5 pounds for 4 days Discharge Attestations Time Spent in Discharge Care*: less than 30 min Quality Metrics Clinical Quality Measures [ No reported AMI, CVA or VTE this stay] Coding Level of Care Code Acute Code for Chg Fwd Diagnoses Unstable angina I20.0 Coronary artery disease I25.10 Thoracic aortic aneurysm without rupture I71.2 Aortic location: thoracic aorta Presence of rupture: without rupture Primary hypertension I10 Hypertension type: primary hypertension Dyslipidemia E78.5
--- NOTE | 2024-08-26 16:10 | PC.NURSE ---
discharge instructions given and explained.pt verb understanding of instructions.discharged via w/c to exit at this time.pt's mother to drive pt home.
--- NOTE | 2024-08-26 23:05 | USCV_ITS ---
RicoJovanny horta Age: 44 Gender: M : 1980 Exam Date: 08/26/2024 08:16 Ordering Phys: Jesus Franco MD Technologist: Gera Trimble Exam Location: Indication: CP BP: / HR: Rhythm: Sinus Technical Quality: Adequate MEASUREMENTS (Male / Female) Normal Values FINDINGS Left Ventricle Left ventricle is normal in size. Moderate to severe left ventricular hypertrophy. LV systolic function is normal with EF of 60-65%. No regional wall motion abnormalities. Grade 1 diastolic dysfunction Right Ventricle Normal in size and function Right Atrium Normal in size Left Atrium Normal in size Mitral Valve Sturcturally normal mitral valve. Mild mitral regurgitation. Aortic Valve Grossly normal. No significant stenosis. Mild aortic regurgitation. Tricuspid Valve Insufficient TR jet to calculate RVSP Pulmonic Valve Not well visualized Pericardium Normal Aorta Ascending aorta is dilated with diameter of 4.17cm IVC Appears to be normal CONCLUSIONS Moderate to severe left ventricular hypertrophy. LV systolic function is normal with EF of 60-65%. Grade 1 diastolic dysfunction Mild mitral regurgitation Mild aortic regurgitation Ascending aorta is dilated with diameter of 4.17cm Spenser Carrillo MD (Electronically Signed) Final Date: 26 Aug 2024 22:58 S
== END 2024-08-26 16:14 | disposition home or self-care (01) | DRG 322 ==
LOC: ER 22:05 → CCL 22:38 → CSU 08-26 05:14
PROVIDERS: Admitting Provider Internal Medicine Cardiovascular Disease; Emergency Provider Emergency Medicine; PCP Family Medicine; Visit Provider Internal Medicine Cardiovascular Disease
PROC: 027034Z Dilation of Coronary Artery, One Artery with Drug-eluting Intraluminal Device, Percutaneous Approach (ICD-10-PCS; principal; 2024-08-25 23:00)
PROC: 027034Z Dilation of Coronary Artery, One Artery with Drug-eluting Intraluminal Device, Percutaneous Approach (ICD-10-PCS; 2024-08-25 23:00)
DX: I25.110 Atherosclerotic heart disease of native coronary artery with unstable angina pectoris (principal); I71.60 Thoracoabdominal aortic aneurysm, without rupture, unspecified; I10 Essential (primary) hypertension; E78.5 Hyperlipidemia, unspecified; K22.70 Barrett's esophagus without dysplasia; F41.1 Generalized anxiety disorder; K21.9 Gastro-esophageal reflux disease without esophagitis; R06.81 Apnea, not elsewhere classified; F32.A Depression, unspecified; F17.210 Nicotine dependence, cigarettes, uncomplicated; Z86.73 Personal history of transient ischemic attack (TIA), and cerebral infarction without residual deficits; Z79.02 Long term (current) use of antithrombotics/antiplatelets; Z79.82 Long term (current) use of aspirin
CPT/HCPCS: 36415; 36416; 71045; 80048; 80053; 82962; 84484; 85025; 85347; 93005; 93306; 93454; 96374; 99152; 99153; C1725; C1769; C1874; C1887; C1894; C9600; J1644; J1938; J2250; J2270; J2405; J3010; J3490; J9999; Q9967

== ENCOUNTER → 2024-09-02 09:52 | Outpatient (BNVA) | payer MEDICAID, SELFPAY | PROVIDERS: PCP Family Medicine; Visit Provider Nurse Practitioner Family | DX: I25.110 Atherosclerotic heart disease of native coronary artery with unstable angina pectoris (principal) | CPT/HCPCS: 36415; 80048 ==

== ENCOUNTER 2024-09-10 18:19 | Emergency (ER) | payer MEDICAID, SELFPAY ==
[2024-09-10] VITALS (10 sets, daily range): BP systolic 87–166; BP diastolic 58–89; PULSE 76–105; RESP 16–20; TEMP 36.7; O2SAT 93–97
--- NOTE | 2024-09-10 18:22 | ECG_ITS ---
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 Measurements Intervals [place] Rate: 102 P: 17 NM: 162 QRS: 29 QRSD: 98 T: 9 QT: 310 QTc: 404 Interpretive Statements SINUS TACHYCARDIA POSSIBLE LEFT ATRIAL ENLARGEMENT [-0.1mV P-WAVE IN V1/V2] MODERATE T-WAVE ABNORMALITY, CONSIDER ANTEROLATERAL ISCHEMIA [-0.1+ mV T-WAVE IN V3-V6] Compared to ECG 08/26/2024 03:30:05 Sinus rhythm no longer present T-wave abnormality still present Possible ischemia still present Electronically Signed On 09-10-2024 21:39:12 CDT by Don Bradley M.D. [id number]
--- NOTE | 2024-09-10 18:48 | XRR_ITS ---
PROCEDURE INFORMATION: Exam: XR Chest Exam date and time: 09/10/2024 6:50 PM Age: 44 years old Clinical indication: Pain; Chest pressure; Additional info: Chest pain TECHNIQUE: Imaging protocol: Radiologic exam of the chest. Views: 1 view. COMPARISON: CR (CHEST, ) 08/25/2024 10:33 PM FINDINGS: Lungs: Atelectasis in the left lung base. The right lung is clear. No consolidation. Pleural spaces: Unremarkable. No pleural effusion. No pneumothorax. Heart/Mediastinum: Unremarkable. No cardiomegaly. Diaphragm: Stable chronic elevation of the left diaphragm Bones/joints: Unremarkable. XR/XR chest 1V portable [id number] IMPRESSION: No acute findings.
[2024-09-10 18:53] LABS: Basophils # 0.1 10^3/uL (0.0-0.1); Basophils % 0.6 %; Eosinophils # 0.3 10^3/uL (0.0-0.8); Eosinophils % 2.4 %; Hematocrit 43.3 % (37-53); Lymphocytes # 2.2 10^3/uL (0.8-4.8); Lymphocytes % 17.7 %; Mean Corpuscular HGB Conc 32.3 g/dL (30-55); Mean Corpuscular Hemoglobin 28.7 pg (27-33); Mean Corpuscular Volume 88.7 fl (82-101); Mean Platelet Volume 9.4 fL (7.4-10.4); Monocytes # 0.9 10^3/uL (0.2-0.9); Monocytes % 6.9 %; Neutrophils # 9.06 10^3/uL (1.8-7.7); Nucleated Red Blood Cells % 0 %; Platelet Count 326 10^3/cmm (157-399); Red Blood Count 4.88 10^6/uL (3.85-5.65); Red Cell Distribution Width 14.6 % (12.1-15.1); White Blood Count 12.57 10^3/uL (3.29-11.43)
[2024-09-10 19:16] LABS: Troponin(5th) Baseline 12 ng/L (0-15)
[2024-09-10 19:19] LABS: Alanine Aminotransferase 40 U/L (0-41); Albumin Level 4.3 g/dL (3.5-5.2); Alkaline Phosphatase 131 U/L (40-130); Anion Gap 20.3 (5-19); Aspartate Amino Transferase 23 U/L (0-40); Blood Urea Nitrogen 20 mg/dL (6-20); Calcium 9.2 mg/dL (8.5-10.5); Carbon Dioxide 18 mmol/L (22-29); Chloride 107 mmol/L (98-107); Creatinine Clr Calc Pharmacy 118.9468; Globulin 2.6 g/dL (1.3-4.6); Glomerular Filtration Rate 81.6 mL/min (90-130); Glucose 126 mg/dL (65-115); Osmolality Calculated 296 mOsm/kg (285-295); Potassium 4.3 mmol/L (3.5-5.1); Sodium 141 mmol/L (136-145); Total Bilirubin 0.5 mg/dL (0.15-1.2); Total Protein 6.9 g/dL (6.6-8.7)
[2024-09-10] MEDS: morphine 4 mg/mL SDV 1 mL IVP ×3 (20:18→22:48)
--- NOTE | 2024-09-10 20:48 | ECG_ITS ---
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 Measurements Intervals [place] Rate: 77 P: 24 [place]: 162 QRS: 38 QRSD: 103 T: -19 QT: 353 QTc: 400 Interpretive Statements SINUS RHYTHM MODERATE T-WAVE ABNORMALITY, CONSIDER ANTEROLATERAL ISCHEMIA [-0.1+ mV T-WAVE IN V3-V6] Compared to ECG 09/10/2024 18:22:55 Sinus tachycardia no longer present T-wave abnormality still present Possible ischemia still present Electronically Signed On 09-10-2024 22:10:52 CDT by Don Bradley M.D. [id number]
[2024-09-10 21:33] LABS: Troponin 5 2HR 10.45 ng/L (0-15)
[2024-09-10 21:36] LABS: Troponin 5 2HR Delta -1.55 ABS# (0-10)
--- NOTE | 2024-09-11 00:48 | ECG_ITS ---
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 Measurements Intervals [place] Rate: 67 P: 18 MD: 182 QRS: 33 QRSD: 102 T: -4 QT: 386 QTc: 408 Interpretive Statements SINUS RHYTHM ST DEVIATION AND MODERATE T-WAVE ABNORMALITY, CONSIDER ANTEROLATERAL ISCHEMIA [-0.1+ mV T-WAVE IN V3-V6] Compared to ECG 09/10/2024 21:03:34 No significant changes Electronically Signed On 09-12-2024 15:11:29 CDT by Spenser Carrillo M.D. [id number]
[2024-09-11 00:56] VITALS: BP 113/65; PULSE 72; RESP 16; O2SAT 92
[2024-09-11 01:38] LABS: Troponin 5 6HR 9.12 ng/L (0-15)
[2024-09-11 01:41] LABS: Troponin 5 6HR Delta -2.88 ng/L (0-12)
[2024-09-11 02:14] VITALS: BP 102/77; PULSE 82; RESP 16; O2SAT 93
--- NOTE | 2024-09-11 03:31 | ED_ITS ---
HPI - Chest Pain 2 General: Chief Complaint: Chest Pain Stated Complaint: cp Time Seen by Provider: 09/10/24 18:37 History of Present Illness: Patient with a history of multiple cardiac issues, including prior stent placement, aortic aneurysm (noted to have increased in size from 3.7 to 4.9), and known blockages, presents with chest pressure that began today around 4:35 PM while sitting and watching TV. The pressure was severe, described as so bad and rated as a 10/10 at its worst. The patient reports the pain is constant and does not change with activity or rest. Nitroglycerin did not provide significant relief, only lowering the pain to a 9/10. The patient also reports a syncopal episode this morning while making coffee, with associated dizziness and bracing against the wall before falling backward. No luu or injuries occurred. The patient notes episodes of leg swelling associated with chest pain. The patient is unable to work due to symptoms and is considering disability. No children. Marital relationship is strained. No mention of fever, cough, or other associated symptoms. Related Data Home Medications ?Medication ?Instructions ?Recorded ?Confirmed ezetimibe 10 mg tablet 10 mg PO DAILY 05/25/2406/24 evolocumab 140 mg/mL subcutaneous 140 mg SUBCUT .every 2 weeks 08/12/24 09/02/24 pen injector (Megan Hadley) atorvastatin 80 mg tablet 80 mg PO BEDTIME 08/26/24 Previous Rx's ?Medication ?Instructions ?Recorded aspirin 81 mg tablet,delayed 81 mg PO DAILY 30 days #3 0 tabs 01/19/24 release nitroglycerin 0.4 mg sublingual 0.4 mg sublingual Q5M PRN Chest 01/19/24 tablet Pain #25 tabs bupropion HCl 150 mg 24 hr tablet, 150 mg PO QAM 30 da ys #30 tabs 06/24/24 extended release (Wellbutrin XL) valsartan 320 mg tablet 320 mg PO DAILY 90 days #90 tabs 06/24/24 carvedilol 12.5 mg tablet 12.5 mg PO BID #180 tabs clopidogrel 75 mg tablet 75 mg PO DAILY 90 days #90 t abs 08/12/24 dicyclomine 20 mg tablet 20 mg PO TID PRN esophageal spasm 08/12/24 #30 tabs duloxetine 60 mg capsule,delayed 60 mg PO DAILY 90 day s #90 caps 08/12/24 release (Cymbalta) furosemide 20 mg tablet 20 mg PO DAILY 90 days #90 t abs 08/12/24 gabapentin 600 mg tablet 600 mg PO QID PRN Pain 90 da ys 08/12/24 #360 tabs isosorbide mononitrate 30 mg 30 mg PO QAM 90 days #90 tabs 08/12/24 tablet,extended release 24 hr isosorbide mononitrate 60 mg 60 mg PO DAILY 90 days #9 0 tabs 08/12/24 tablet,extended release 24 hr loratadine 10 mg tablet (Allergy 10 mg PO DAILY PRN al lergy 08/12/24 Relief (loratadine)) symptoms #90 tabs mirtazapine 15 mg tablet 15 mg PO QPM 90 days #90 tab s 08/12/24 ondansetron 4 mg disintegrating 4 mg PO BID PRN nausea and 08/12/24 tablet vomiting #30 tabs pantoprazole 40 mg tablet,delayed 40 mg PO BID 90 days #180 tabs 08/12/24 release (Protonix) hydralazine 25 mg tablet 25 mg PO TID hypertension #1 20 tabs 09/02/24 Allergies Allergy/AdvReac Type Severity Reaction Status Date / Time No Known Allergies Allergy Verified 09/02/24 08:31 [facility] ED 2 PFSH: Medical History Unstable angina Aorta aneurysm Chest pain Colon polyp Gastritis and duodenitis Eli esophagus Dilated aortic root Urolithiasis LAURA (generalized anxiety disorder) GERD (gastroesophageal reflux disease) Cervical radiculopathy HTN (hypertension) Dyslipidemia Gross hematuria Staghorn calculus Atherosclerosis of coronary artery Presence of stent in LAD coronary artery Central apnea Tobacco use Gastroesophageal reflux disease COPD (chronic obstructive pulmonary disease) Depression Surgical History Status post laser lithotripsy of ureteral calculus S/P ureteral stent placement Hx of heart artery stent H/O colonoscopy with polypectomy History of cholecystectomy Family History Father Heart disease Alcoholic Lung disease Mother Healthy adult Social History Smoking and tobacco/nicotine status: current every day tobacco/nicotine user cigarettes Packs smoked per day: 0.5 Years cigarettes smoked: 20 Alcohol intake: current Alcohol intake frequency: holidays/special occasions only Substance/Drug Use: never Marital status: Current occupational status: unemployed Physical Exam 2 Const: COMMON NORMALS: no acute distress, patient oriented x3 and alert HENMT: COMMON NORMALS: normocephalic and atraumatic HEAD & SCALP: n ormocephalic and atraumatic Eye: COMMON NORMALS: Equal, round and reactive pupils present, EOMs intact bilaterally and no scleral icterus PUPIL: Yes Equal, round and reactive pupils present Chest: OTHER: Chest pain is not reproducible with palpation or deep inspiration. Resp: COMMON NORMALS: normal respiratory effort and No retractions Cardio: COMMON NORMALS: regular rate, regular rhythm and No murmurs present (Cardio) RATE: regular rate RHYTHM: regular rhythm GI: COMMON NORMALS: Normal to inspection, nondistended, normoactive bowel sounds present, Soft to palpation and non-tender PALPATION: Yes Soft to palpation Neuro: COMMON NORMALS: patient oriented x3 SENSORIUM/ORIENTATION: Yes alert Skin: COMMON NORMALS: no rashes or lesions noted GENERAL SKIN EXAM: no rashes or lesions noted Course 2 Vital Signs: Vital signs: Vital Signs Temperature 98.1 F 09/10/24 18:28 Pulse Rate 82 09/11/24 02:14 Respiratory Rate 16 09/11/24 02:14 Blood Pressure 102/77 09/11/24 02:14 Pulse Oximetry 93 09/11/24 02:14 Oxygen Delivery Me thod Room Air 09/11/24 00:56 Oxygen Flow Rate 2 09/10/24 21:30 [facility] - Chest Pain Medical Decision Making In summary, patient is a generally well-appearing 44-year-old male seen for chest pain. Symptoms are concerning given he describes them as pressure, lightheadedness, nausea, diaphoresis, lightheadedness in the setting of a 95% occlusion which was stented on the 2 weeks ago. Despite this, EKG shows nothing acute. Troponin is stable x 3. I spoke with on-call cardiology who recommends outpatient follow-up as they do not feel that he would benefit from admission and stress test. I also spoke with hospital service who agrees with cardiology. Patient knows that he is always welcome back in the emergency department if symptoms get worse, but otherwise will follow-up with primary care and cardiology. He will continue take his medications. Vital signs remained stable throughout ED course. Lab Data 09/10/24 18:48 09/10/24 18:48 Radiology Impressions Chest X-Ray 09/10/24 18:48 IMPRESSION: No acute findings. Laboratory Results WBC 12.57 10^3/uL (3.29-11.43) H 09/10/24 18:48 RBC 4.88 10^6/uL (3.85-5.65) 09/10/24 18:48 Hgb 14.00 g/dL (11.27-16.99) 09/10/24 18:48 Hct 43.3 % (37-53) 09/10/24 18:48 MCV 88.7 fl (82-101) 09/10/24 18:48 MCH 28.7 pg (27-33) 09/10/24 18:48 MCHC 32.3 g/dL (30-55) 09/10/24 18:48 RDW 14.6 % (12.1-15.1) 09/10/24 18:48 Plt Count 326 10^3/cmm (157-399) 09/10/24 18:48 MPV 9.4 fL (7.4-10.4) 09/10/24 18:48 Neut % (Auto) 72.0 % 09/10/24 18:48 Lymph % (Auto) 17.7 % 09/10/24 18:48 [place] % (Auto) 6.9 % 09/10/24 18:48 Eos % (Auto) 2.4 % 09/10/24 18:48 Baso % (Auto) 0.6 % 09/10/24 18:48 Neut # (Auto) 9.06 10^3/uL (1.8-7.7) H 09/10/24 18:48 Lymph # (Auto) 2.2 10^3/uL (0.8-4.8) 09/10/24 18:48 [place] # (Auto) 0.9 10^3/uL (0.2-0.9) 09/10/24 18:48 Eos # (Auto) 0.3 10^3/uL (0.0-0.8) 09/10/24 18:48 Baso # (Auto) 0.1 10^3/uL (0.0-0.1) 09/10/24 18:48 Nucleated RBC % (auto) 0 % 09/10/24 18:48 Nucleated RBCs # 0.0 /100WBC 09/10/24 18:48 Sodium 141 mmol/L (136-145) 09/10/24 18:48 Potassium 4.3 mmol/L (3.5-5.1) 09/10/24 18:48 Chloride 107 mmol/L (98-107) 09/10/24 18:48 Carbon Dioxide 18 mmol/L (22-29) L 09/10/24 18:48 Anion Gap 20.3 (5-19) H 09/10/24 18:48 BUN 20 mg/dL (6-20) 09/10/24 18:48 Creatinine 1.0 mg/dL (0.7-1.2) 09/10/24 18:48 GFR Calculation 81.6 mL/min (90-130) L 09/10/24 18:48 Glucose 126 mg/dL (65-115) H 09/10/24 18:48 Calculated Osmolality 296 mOsm/kg (285-295) H 09/10/24 18:48 Calcium 9.2 mg/dL (8.5-10.5) 09/10/24 18:48 Total Bilirubin 0.5 mg/dL (0.15-1.2) 09/10/24 18:48 AST 23 U/L (0-40) 09/10/24 18:48 ALT 40 U/L (0-41) 09/10/24 18:48 Alkaline Phosphatase 131 U/L (40-130) H 09/10/24 18:48 Troponin T Baseline 12 ng/L (0-15) 09/10/24 18:48 Troponin T 120 Minute 10.45 ng/L (0-15) 09/10/24 21:00 Delta Troponin T -1.55 ABS# (0-10) L 09/10/24 21:00 Troponin T Hi Sens 6Hr 9.12 ng/L (0-15) 09/11/24 01:14 Troponin T Hi Sens 6Hr Delta -2.88 ng/L (0-12) L 09/11/24 01:14 Total Protein 6.9 g/dL (6.6-8.7) 09/10/24 18:48 Albumin 4.3 g/dL (3.5-5.2) 09/10/24 18:48 Globulin 2.6 g/dL (1.3-4.6) 09/10/24 18:48 All radiology interpretation(s) finalized by discharge EKG Data EKG 1: Computer generated interpretation: Time?2102?normal sinus rhythm, rate of 77, no ST segment elevation or depression, T waves inverted in lateral leads, unchanged from prior studies. QTc = 384. Discharge Plan Discharge Patient Disposition: Home Clinical Impression: Chest pain Condition: Stable Prescriptions: No Action valsartan 320 mg tablet 320 mg PO DAILY 90 Days Qty: 90 3RF bupropion HCl [Wellbutrin XL] 150 mg tablet extended release 24 hr 150 mg PO QAM 30 Days Qty: 30 5RF Repatha SureClick 140 mg/mL pen injector 140 mg SUBCUT .every 2 weeks loratadine [Allergy Relief (loratadine)] 10 mg tablet 10 mg PO DAILY PRN (Reason: allergy symptoms) Qty: 90 3RF carvedilol 12.5 mg tablet 12.5 mg PO BID Qty: 180 1RF Rx Instructions: dose increase clopidogrel 75 mg tablet 75 mg PO DAILY 90 Days Qty: 90 2RF dicyclomine 20 mg tablet 20 mg PO TID PRN (Reason: esophageal spasm) Qty: 30 5RF duloxetine [Cymbalta] 60 mg capsule,delayed release(DR/EC) 60 mg PO DAILY 90 Days Qty: 90 2RF furosemide 20 mg tablet 20 mg PO DAILY 90 Days Qty: 90 2RF gabapentin 600 mg tablet 600 mg PO QID PRN (Reason: Pain) 90 Days Qty: 360 1RF isosorbide mononitrate 60 mg tablet extended release 24 hr 60 mg PO DAILY 90 Days Qty: 90 1RF Rx Instructions: take with 30mg to equal 90mg daily isosorbide mononitrate 30 mg tablet extended release 24 hr 30 mg PO QAM 90 Days Qty: 90 1RF Rx Instructions: take with 60mg to equal 90mg daily mirtazapine 15 mg tablet 15 mg PO QPM 90 Days Qty: 90 1RF ondansetron 4 mg tablet,disintegrating 4 mg PO BID PRN (Reason: nausea and vomiting) Qty: 30 5RF pantoprazole [Protonix] 40 mg tablet,delayed release (DR/EC) 40 mg PO BID 90 Days Qty: 180 1RF hydralazine 25 mg tablet 25 mg PO TID Qty: 120 2RF atorvastatin 80 mg tablet 80 mg PO BEDTIME aspirin 81 mg tablet,delayed release (DR/EC) 81 mg PO DAILY 30 Days Qty: 30 0RF nitroglycerin 0.4 mg tablet, sublingual 0.4 mg sublingual Q5M PRN (Reason: Chest Pain) Qty: 25 0RF Rx Instructions: do not exceed 3 doses per episode ezetimibe 10 mg tablet 10 mg PO DAILY Discharge Orders: Discharge ED (Routine); Ordered 09/11/24 Ordered By: Andre Hurtado Referrals: Anna Roach MD [Primary Care Provider, Family Practice] Discharge Diet: Usual diet Discharge Activity: Increase activity as tolerated Patient Instructions: Chest Pain (ED) Activity Restrictions/Additional Instructions: 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 You are always welcome back in the emergency department if things get worse before then. Print Language: Vietnamese Coding Level of Care Code ED Event Manager for Clair Mathew
== END 2024-09-11 02:20 | disposition home or self-care (01) ==
PROVIDERS: Emergency Provider Student in an Organized Health Care Education/Training Program; PCP Family Medicine
DX: R07.9 Chest pain, unspecified (principal); Z79.02 Long term (current) use of antithrombotics/antiplatelets; Z79.82 Long term (current) use of aspirin; F17.210 Nicotine dependence, cigarettes, uncomplicated; J44.9 Chronic obstructive pulmonary disease, unspecified; E78.5 Hyperlipidemia, unspecified; I10 Essential (primary) hypertension; I25.10 Atherosclerotic heart disease of native coronary artery without angina pectoris
CPT/HCPCS: 36415; 71045; 80053; 84484; 85025; 93005; 96374; 99285; J2270

== ENCOUNTER 2024-09-18 00:45 | Emergency (ER) | payer MEDICAID, SELFPAY ==
[2024-09-18] VITALS (8 sets, daily range): BP systolic 106–127; BP diastolic 50–88; PULSE 66–103; RESP 16–20; TEMP 36.6; O2SAT 92–95
--- NOTE | 2024-09-18 00:48 | XRR_ITS ---
PROCEDURE INFORMATION: Exam: XR Chest Exam date and time: 09/18/2024 12:49 AM Age: 44 years old Clinical indication: Pain; Chest pressure; Prior surgery; Surgery date: 6+ months; Current smoker, HX esophageal CA, colon CA, 2 heart stents; Additional info: Chest pain TECHNIQUE: Imaging protocol: Radiologic exam of the chest. Views: 1 view. COMPARISON: CR XR chest 1V portable [id number] 09/10/2024 6:50 PM FINDINGS: Lungs: Bandlike scarring again noted in the lung bases bilaterally with chronic elevation of the left hemidiaphragm. No new airspace consolidation or overt pulmonary edema. Pleural spaces: Unremarkable. No pleural effusion. No pneumothorax. Heart/Mediastinum: Stable cardiomediastinal contours. Bones/joints: No acute osseous findings. XR/XR chest 1V portable [id number] IMPRESSION: No acute cardiopulmonary findings.
--- NOTE | 2024-09-18 00:48 | ECG_ITS ---
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 Measurements Intervals [place] Rate: 103 P: 14 UT: 132 QRS: 30 QRSD: 101 T: 36 QT: 348 QTc: 457 Interpretive Statements SINUS TACHYCARDIA ABNORMAL RHYTHM ECG Compared to ECG 09/11/2024 00:38:22 Sinus rhythm no longer present T-wave abnormality no longer present Possible ischemia no longer present Electronically Signed On 09-18-2024 05:57:03 CDT by Don Bradley M.D. [id number] [id number]
--- NOTE | 2024-09-18 01:01 | W.ED.CHESTPA ---
HPI - Chest Pain General: Chief Complaint: Chest Pain Stated Complaint: CP SOB N/V Time Seen by Provider: 09/18/24 00:48 History of Present Illness: 44-year-old man with a history of hypertension, hyperlipidemia, coronary artery disease status post stents, COPD who presents to the emergency room with chest pain. He says this started about 2 hours ago. Sharp chest pain in the lateral left chest. He says this is similar to when he has had heart attacks in the past. He says he has sharp pain when it is happening. He also feels short of breath. Related Data Home Medications ?Medication ?Instructions ?Recorded ?Confirmed ezetimibe 10 mg tablet 10 mg PO DAILY 05/25/24 09/02/24 evolocumab 140 mg/mL subcutaneous 140 mg SUBCUT .every 2 weeks 08/12/24 09/02/24 pen injector (Megan Hadley) atorvastatin 80 mg tablet 80 mg PO BEDTIME 08/26/24 09/02/24 Previous Rx's ?Medication ?Instructions ?Recorded aspirin 81 mg tablet,delayed 81 mg PO DAILY 30 days #30 tabs 01/19/24 release nitroglycerin 0.4 mg sublingual 0.4 mg sublingual Q5M PRN Chest 01/19/24 tablet Pain #25 tabs bupropion HCl 150 mg 24 hr tablet, 150 mg PO QAM 30 days #30 tabs 06/24/24 extended release (Wellbutrin XL) valsartan 320 mg tablet 320 mg PO DAILY 90 days #90 tabs 06/24/24 carvedilol 12.5 mg tablet 12.5 mg PO BID #180 tabs 08/12/24 clopidogrel 75 mg tablet 75 mg PO DAILY 90 days #90 tabs 08/12/24 dicyclomine 20 mg tablet 20 mg PO TID PRN esophageal spasm 08/12/24 #30 tabs duloxetine 60 mg capsule,delayed 60 mg PO DAILY 90 days #90 caps 08/12/24 release (Cymbalta) furosemide 20 mg tablet 20 mg PO DAILY 90 days #90 tabs 08/12/24 gabapentin 600 mg tablet 600 mg PO QID PRN Pain 90 days 08/12/24 #360 tabs isosorbide mononitrate 30 mg 30 mg PO QAM 90 days #90 tabs 08/12/24 tablet,extended release 24 hr isosorbide mononitrate 60 mg 60 mg PO DAILY 90 days #90 tabs 08/12/24 tablet,extended release 24 hr loratadine 10 mg tablet (Allergy 10 mg PO DAILY PRN allergy 08/12/24 Relief (loratadine)) symptoms #90 tabs mirtazapine 15 mg tablet 15 mg PO QPM 90 days #90 tabs 08/12/24 ondansetron 4 mg disintegrating 4 mg PO BID PRN nausea and 08/12/24 tablet vomiting #30 tabs pantoprazole 40 mg tablet,delayed 40 mg PO BID 90 days #180 tabs 08/12/24 release (Protonix) hydralazine 25 mg tablet 25 mg PO TID hypertension #120 tabs 09/02/24 Allergies Allergy/AdvReac Type Severity Reaction Status Date / Time No Known Allergies Allergy Verified 09/18/24 00:54 Review of Systems Narrative: Constitutional symptoms: Negative except as documented in HPI. Skin symptoms: Negative except as documented in HPI. Eye symptoms: Negative except as documented in HPI. ENMT symptoms: Negative except as documented in HPI. Respiratory symptoms: Negative except as documented in HPI. Cardiovascular symptoms: Negative except as documented in HPI. Gastrointestinal symptoms: Negative except as documented in HPI. Genitourinary symptoms: Negative except as documented in HPI. Musculoskeletal symptoms: Negative except as documented in HPI. Neurologic symptoms: Negative except as documented in HPI. Psychiatric symptoms: Negative except as documented in HPI. Endocrine symptoms: Negative except as documented in HPI. PFSH ED PFSH: Medical History Unstable angina Aorta aneurysm Chest pain Colon polyp Gastritis and duodenitis Eli esophagus Dilated aortic root Urolithiasis LAURA (generalized anxiety disorder) GERD (gastroesophageal reflux disease) Cervical radiculopathy HTN (hypertension) Dyslipidemia Gross hematuria Staghorn calculus Atherosclerosis of coronary artery Presence of stent in LAD coronary artery Central apnea Tobacco use Gastroesophageal reflux disease COPD (chronic obstructive pulmonary disease) Depression Surgical History Status post laser lithotripsy of ureteral calculus S/P ureteral stent placement Hx of heart artery stent H/O colonoscopy with polypectomy History of cholecystectomy Family History Father Heart disease Alcoholic Lung disease Mother Healthy adult Social History (Reviewed 09/01/24 @ 10:49 by Marcie Yoo [facility]) Smoking and tobacco/nicotine status: current every day tobacco/nicotine user cigarettes Packs smoked per day: 0.5 Years cigarettes smoked: 20 Alcohol intake: current Alcohol intake frequency: holidays/special occasions only Substance/Drug Use: never Marital status: Current occupational status: unemployed Physical Exam Narrative: EXAM NARRATIVE: General: Alert, no acute distress. Skin: Warm, dry. Head: Normocephalic, atraumatic. Neck: Supple, trachea midline. Eye: Extraocular movements are intact. Ears, nose, mouth and throat: mucosa moist. Cardiovascular: Regular, Normal peripheral perfusion. Respiratory: Lungs are clear to auscultation, respirations are non-labored, breath sounds are equal, Symmetrical chest wall expansion. Gastrointestinal: Soft, Nontender, Non distended Musculoskeletal: Normal ROM, no deformity. Neurological: Alert and oriented, No focal neurological deficit observed. Psychiatric: Cooperative, appropriate mood & affect. Course Vital Signs: Vital signs: Vital Signs Temperature 97.9 F 09/18/24 00:48 Pulse Rate 66 09/18/24 03:30 Respiratory Rate 20 H 09/18/24 03:30 Blood Pressure 117/85 09/18/24 03:30 Pulse Oximetry 94 09/18/24 03:30 Oxygen Delivery Me thod Room Air 09/18/24 00:48 MDM - Chest Pain Medical Decision Making Differential diagnosis for patient with chest pain includes but is not limited to and based on the above HPI, review of systems and physical exam: Pneumonia. unstable angina. angina. Acute coronary syndrome / PA. Pulmonary embolism. Costochondritis / musculoskeletal. Pleurisy. Pericarditis. Esophageal spasm. Pancreatis. Cholecystitis. Orders placed to evaluate differential diagnosis based on the above differential, HPI and physical exam EKG: Time 12:50 AM. Rate 103. Sinus tachycardia, No ST-T changes, no ectopy, normal MA & QRS intervals, This was reviewed and interpreted by myself the ER physician at 12:55 AM Chest x-ray: No acute process. No infiltrate. No pneumothorax. This was reviewed and interpreted by myself the emergency room physician. I also reviewed the radiology report. Lab Review: Laboratory results were reviewed and interpreted by myself the emergency room physician. No leukocytosis. No anemia. No renal failure. Serial cardiac markers are negative. I reviewed the patient's medical record. Reexamination: Patient remained stable. No increased work of breathing. No altered mental status. No focal motor deficits. Assessment and plan: Noncardiac chest pain - Discharged home - Discussed findings and plan with patient. Answered any questions. - All laboratory values were reviewed and interpreted personally by myself, the ER physician - All imaging was reviewed and interpreted personally by myself, the ER physician. - Evaluation and treatment of this problem were appropriate in the emergency setting Lab Data 09/18/24 01:30 09/18/24 01:30 Radiology Impressions Chest X-Ray 09/18/24 00:48 IMPRESSION: No acute cardiopulmonary findings. Laboratory Results WBC 9.03 10^3/uL (3.29-11.43) 09/18/24 01:30 RBC 4.69 10^6/uL (3.85-5.65) 09/18/24 01:30 Hgb 13.70 g/dL (11.27-16.99) 09/18/24 01:30 Hct 41.0 % (37-53) 09/18/24 01:30 MCV 87.4 fl (82-101) 09/18/24 01:30 MCH 29.2 pg (27-33) 09/18/24 01:30 MCHC 33.4 g/dL (30-55) 09/18/24 01:30 RDW 14.5 % (12.1-15.1) 09/18/24 01:30 Plt Count 279 10^3/cmm (157-399) 09/18/24 01:30 MPV 9.3 fL (7.4-10.4) 09/18/24 01:30 Neut % (Auto) 48.2 % 09/18/24 01:30 Lymph % (Auto) 33.7 % 09/18/24 01:30 Clarke % (Auto) 9.7 % 09/18/24 01:30 Eos % (Auto) 6.9 % 09/18/24 01:30 Baso % (Auto) 1.1 % 09/18/24 01:30 Neut # (Auto) 4.35 10^3/uL (1.8-7.7) 09/18/24 01:30 Lymph # (Auto) 3.0 10^3/uL (0.8-4.8) 09/18/24 01:30 Clarke # (Auto) 0.9 10^3/uL (0.2-0.9) 09/18/24 01:30 Eos # (Auto) 0.6 10^3/uL (0.0-0.8) 09/18/24 01:30 Baso # (Auto) 0.1 10^3/uL (0.0-0.1) 09/18/24 01:30 Nucleated RBC % (auto) 0 % 09/18/24 01:30 Nucleated RBCs # 0.0 /100WBC 09/18/24 01:30 Sodium 142 mmol/L (136-145) 09/18/24 01:30 Potassium 3.9 mmol/L (3.5-5.1) 09/18/24 01:30 Chloride 105 mmol/L (98-107) 09/18/24 01:30 Carbon Dioxide 25 mmol/L (22-29) 09/18/24 01:30 Anion Gap 15.9 (5-19) 09/18/24 01:30 BUN 13 mg/dL (6-20) 09/18/24 01:30 Creatinine 0.7 mg/dL (0.7-1.2) 09/18/24 01:30 GFR Calculation 123.1 mL/min (90-130) 09/18/24 01:30 Glucose 121 mg/dL (65-115) H 09/18/24 01:30 Calculated Osmolality 295 mOsm/kg (285-295) 09/18/24 01:30 Calcium 9.4 mg/dL (8.5-10.5) 09/18/24 01:30 Total Bilirubin 0.2 mg/dL (0.15-1.2) 09/18/24 01:30 AST 20 U/L (0-40) 09/18/24 01:30 ALT 36 U/L (0-41) 09/18/24 01:30 Alkaline Phosphatase 137 U/L (40-130) H 09/18/24 01:30 Troponin T Baseline 11 ng/L (0-15) 09/18/24 01:30 Troponin T 120 Minute 9.79 ng/L (0-15) 09/18/24 03:08 Delta Troponin T -1.21 ABS# (0-10) L 09/18/24 03:08 NT-Pro-B Natriuret Pep 39 pg/mL (0-125) 09/18/24 01:30 Total Protein 6.5 g/dL (6.6-8.7) L 09/18/24 01:30 Albumin 4.2 g/dL (3.5-5.2) 09/18/24 01:30 Globulin 2.3 g/dL (1.3-4.6) 09/18/24 01:30 All radiology interpretation(s) finalized by discharge Discharge Plan Discharge Patient Disposition: Home Clinical Impression: Non-cardiac chest pain Condition: Stable Prescriptions: No Action valsartan 320 mg tablet 320 mg PO DAILY 90 Days Qty: 90 3RF bupropion HCl [Wellbutrin XL] 150 mg tablet extended release 24 hr 150 mg PO QAM 30 Days Qty: 30 5RF Repatha SureClick 140 mg/mL pen injector 140 mg SUBCUT .every 2 weeks loratadine [Allergy Relief (loratadine)] 10 mg tablet 10 mg PO DAILY PRN (Reason: allergy symptoms) Qty: 90 3RF carvedilol 12.5 mg tablet 12.5 mg PO BID Qty: 180 1RF Rx Instructions: dose increase clopidogrel 75 mg tablet 75 mg PO DAILY 90 Days Qty: 90 2RF dicyclomine 20 mg tablet 20 mg PO TID PRN (Reason: esophageal spasm) Qty: 30 5RF duloxetine [Cymbalta] 60 mg capsule,delayed release(DR/EC) 60 mg PO DAILY 90 Days Qty: 90 2RF furosemide 20 mg tablet 20 mg PO DAILY 90 Days Qty: 90 2RF gabapentin 600 mg tablet 600 mg PO QID PRN (Reason: Pain) 90 Days Qty: 360 1RF isosorbide mononitrate 60 mg tablet extended release 24 hr 60 mg PO DAILY 90 Days Qty: 90 1RF Rx Instructions: take with 30mg to equal 90mg daily isosorbide mononitrate 30 mg tablet extended release 24 hr 30 mg PO QAM 90 Days Qty: 90 1RF Rx Instructions: take with 60mg to equal 90mg daily mirtazapine 15 mg tablet 15 mg PO QPM 90 Days Qty: 90 1RF ondansetron 4 mg tablet,disintegrating 4 mg PO BID PRN (Reason: nausea and vomiting) Qty: 30 5RF pantoprazole [Protonix] 40 mg tablet,delayed release (DR/EC) 40 mg PO BID 90 Days Qty: 180 1RF hydralazine 25 mg tablet 25 mg PO TID Qty: 120 2RF atorvastatin 80 mg tablet 80 mg PO BEDTIME aspirin 81 mg tablet,delayed release (DR/EC) 81 mg PO DAILY 30 Days Qty: 30 0RF nitroglycerin 0.4 mg tablet, sublingual 0.4 mg sublingual Q5M PRN (Reason: Chest Pain) Qty: 25 0RF Rx Instructions: do not exceed 3 doses per episode ezetimibe 10 mg tablet 10 mg PO DAILY Discharge Orders: Discharge ED (Routine); Ordered 09/18/24 Ordered By: Michelle Hernandez Referrals: Anna Roach MD [Primary Care Provider, Family Practice] Discharge Diet: Usual diet Discharge Activity: Increase activity as tolerated Patient Instructions: Noncardiac Chest Pain (ED), Opioid Safety, Pain Management Activity Restrictions/Additional Instructions: Thank you for choosing [facility] for your healthcare needs today. You have been screened and evaluated and felt safe for discharge. Health conditions do change or evolve sometimes and as such it is important that you follow up with your Primary Doctor to be re checked, 3-5 days is a general good time frame for follow up. You are always welcome to return to the ED for re assessment if your symptoms are worsening or you have new concerns Print Language: Luxembourger Coding Level of Care Code ED Blade Changer for Clair Mathew
[2024-09-18] MEDS: aspirin 81 mg Chew Tablet 324 MG PO (01:25)
[2024-09-18] MEDS: nitroglycerin 0.4 mg sublingual Tablet SUBLINGUAL (01:26)
[2024-09-18 01:37] LABS: Basophils # 0.1 10^3/uL (0.0-0.1); Basophils % 1.1 %; Eosinophils # 0.6 10^3/uL (0.0-0.8); Eosinophils % 6.9 %; Lymphocytes % 33.7 %; Mean Corpuscular HGB Conc 33.4 g/dL (30-55); Mean Corpuscular Hemoglobin 29.2 pg (27-33); Mean Corpuscular Volume 87.4 fl (82-101); Mean Platelet Volume 9.3 fL (7.4-10.4); Monocytes # 0.9 10^3/uL (0.2-0.9); Monocytes % 9.7 %; Neutrophils # 4.35 10^3/uL (1.8-7.7); Neutrophils % 48.2 %; Nucleated Red Blood Cells % 0 %; Platelet Count 279 10^3/cmm (157-399); Red Blood Count 4.69 10^6/uL (3.85-5.65); Red Cell Distribution Width 14.5 % (12.1-15.1); White Blood Count 9.03 10^3/uL (3.29-11.43)
[2024-09-18 02:14] LABS: Troponin(5th) Baseline 11 ng/L (0-15)
[2024-09-18 02:24] LABS: Alanine Aminotransferase 36 U/L (0-41); Albumin Level 4.2 g/dL (3.5-5.2); Alkaline Phosphatase 137 U/L (40-130); Anion Gap 15.9 (5-19); Aspartate Amino Transferase 20 U/L (0-40); Blood Urea Nitrogen 13 mg/dL (6-20); Calcium 9.4 mg/dL (8.5-10.5); Carbon Dioxide 25 mmol/L (22-29); Chloride 105 mmol/L (98-107); Globulin 2.3 g/dL (1.3-4.6); Glomerular Filtration Rate 123.1 mL/min (90-130); Glucose 121 mg/dL (65-115); NT Pro B Type Natriuretic Pept 39 pg/mL (0-125); Osmolality Calculated 295 mOsm/kg (285-295); Potassium 3.9 mmol/L (3.5-5.1); Sodium 142 mmol/L (136-145); Total Bilirubin 0.2 mg/dL (0.15-1.2); Total Protein 6.5 g/dL (6.6-8.7)
--- NOTE | 2024-09-18 02:39 | ECG_ITS ---
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 Measurements Intervals [place] Rate: 70 P: 27 CT: 174 QRS: 42 QRSD: 102 T: 30 QT: 367 QTc: 398 Interpretive Statements SINUS RHYTHM MODERATE T-WAVE ABNORMALITY, CONSIDER ANTEROLATERAL ISCHEMIA [-0.1+ mV T-WAVE IN V3-V6] Compared to ECG 09/18/2024 00:50:03 T-wave abnormality now present Possible ischemia now present Sinus tachycardia no longer present Electronically Signed On 09-18-2024 06:23:03 CDT by Don Bradley M.D. [email or web address]
[2024-09-18 03:41] LABS: Troponin 5 2HR 9.79 ng/L (0-15)
[2024-09-18 03:47] LABS: Troponin 5 2HR Delta -1.21 ABS# (0-10)
== END 2024-09-18 04:21 | disposition home or self-care (01) ==
PROVIDERS: Emergency Provider Emergency Medicine; PCP Family Medicine
DX: R07.89 Other chest pain (principal); Z79.02 Long term (current) use of antithrombotics/antiplatelets; Z79.82 Long term (current) use of aspirin; F17.210 Nicotine dependence, cigarettes, uncomplicated; J44.9 Chronic obstructive pulmonary disease, unspecified; E78.5 Hyperlipidemia, unspecified; I25.10 Atherosclerotic heart disease of native coronary artery without angina pectoris; I10 Essential (primary) hypertension
CPT/HCPCS: 71045; 80053; 83880; 84484; 85025; 93005; 99285; J9999

== ENCOUNTER 2024-11-21 02:15 | Emergency (ER) | payer MEDICAID, SELFPAY ==
[2024-11-21] VITALS (7 sets, daily range): BP systolic 101–135; BP diastolic 66–93; PULSE 75–96; RESP 20–22; TEMP 36.6; O2SAT 92–95; BMI 27.1
--- OUTSIDE RECORDS SUMMARY | 2024-11-21 02:22 | XMS_ITS | Clinical Summary ---
Author Organization [facility] Address [address] [place] [address] Care Team Providers Care Dry Cell Assembly Machine Tender Name Role Phone Anna Roach MD Primary Care Provider [phone] Allergies No known active allergies Medications nitroglycerin (NITROSTAT) 0.4 mg Tablet, Sublingual DISSOLVE ONE TABLET UNDER THE TONGUE EVERY 5 MINUTES NEEDED FOR CHEST PAIN. DO NOT EXCEED A TOTAL OF 3 DOSES IN 15 MINUTES 2 Active isosorbide mononitrate (IMDUR) 60 mg Extended Release 24 hour tablet Take 60 mg by mouth daily. 2 Active gabapentin (NEURONTIN) 600 mg tablet Take 600 mg by mouth 3 times daily. Active DULoxetine (CYMBALTA) 60 mg Capsule, Delayed Release(E.C.) Take 60 mg by mouth daily. Active clopidogreL (PLAVIX) 75 mg Tablet Take 75 mg by mouth daily. Active atorvastatin (LIPITOR) 80 mg tablet Take 80 mg by mouth daily at bedtime. 2 Active famotidine (PEPCID) 40 mg tablet Take 40 mg by mouth 2 times daily. Active aspirin (ECOTRIN EC) 81 mg Tablet, Delayed Release (E.C.) Take 81 mg by mouth daily. Active omeprazole (PriLOSEC) 40 mg Capsule, Delayed Release(E.C.) Take 1 Capsule (40 mg) by mouth 2 times daily. 60 Capsule 3 4 Active Active Problems Problem Noted Date Diagnosed Date Prediabetes 07/24/2020 Crescendo angina 06/30/2020 Hypoxemia 06/30/2020 Nonobstructive atherosclerosis of coronary arter y 06/30/2020 Mild episode of recurrent major depressive disor madyson 06/18/2019 Primary hypertension 06/18/2019 Hiatal hernia 01/03/2016 Thoracic aortic aneurysm without rupture 016 COPD (chronic obstructive pulmonary disease) 06/2015 Gastroesophageal reflux disease with esophagitis 10/08/2015 Tobacco use 10/07/2015 Cervical pain 02/10/2010 Encounters Date Type Department Care Team Description 11/18/2024 External Device Data [facility] ABSTRACTION Provider, Abstract 11/05/2024 External Device Data [facility] ABSTRACTION Provider, Abstract 09/30/2024 External Device Data [facility]STRACTION Provider, Abstract 09/17/2024 External Device Data [facility] Provider, Abstract 08/21/2024 External Device Data [facility] Provider, Abstract from Last 3 Months Immunizations Immunization Administration Dates Next Due (SPIKEVAX) (12 YRS UP PRIMAR Y SERIES) COVID-19 VACCINE - MRNA-1273(PF) 100 MCG/0.5 ML IM SUSP 06/26/2020 (TDVAX)(7 YRS UP) TETANUS AN D DIPHTHERIA TOXOIDS, ADSORBED (2 LF OF TETANUS TOXOID AND 2 LF OF DIPHTHERIA TOXOID), 0.5ML (PF), IM 07/27/1995 INFLUENZA VACCINE QUADRIVALENT 6 MOS UP PF IM Family History Medical History Relation Name Comments Colon Cancer Father Diabetes Father Heart Disease Father Relation Name Status Comments Father Social History Tobacco Use Types Packs/Day Years Used Date Smoking Tobacco: Every Day Cigarettes Smokeless Tobacco: Former Chew Tobacco Cessation:Ready to Q uit: No; Counseling Given: No Comments:09/01/21- 0.25 ppd Alcohol Use Standard Drinks/Week Comments Yes 3.3 (1 standard drink = 0.6 oz p ure alcohol) occ Feeling Safe Answer Date Recorded Are you in a relationship wi th someone who hurts you emotionally and/or physically? No 09/04/2023 Sex and Gender Information Value Date Recorded Sex Assigned at Not on file Legal Sex Male 3:42 AM DITCH CLEANER Gender Identity Not on file Sexual Orientation Not on file Last Filed Vital Signs Vital Sign Reading Time Taken Comments Blood Pressure 115/88 09/04/2023 12:44 PM CDT Pulse 76 09/04/2023 12:44 PM CDT Temperature 36.3 C (97.4 F) 07/10/2023 8:39 AM CDT Respiratory Rate 18 09/04/2023 12:44 PM CDT Oxygen Saturation 96% 09/04/2023 12:44 PM CDT Inhaled Oxygen Concentration - - Weight 90.7 kg (200 lb) 09/03/2023 4:24 PM CDT Height 182.9 cm (6') 09/03/2023 4:24 PM CDT Body Mass Index 27.12 09/03/2023 4:24 PM CDT Plan of Treatment Health Maintenance Due Date Last Done Comments DTAP/TDAP/TD VACCINES (2 - Tdap) 07/28/1995 07/26/18 96 HPV VACCINES (1 - Male 3-dos e series) 02/27/1996 HEPATITIS B VACCINES (1 of 3 - 19+ 3-dose series) 02/27/2000 Pre-Diabetes and Diabetes Screening 06/11/2023 06/10/2020, 09/09/2019, 04/17/2019, Additional history exists COVID-19 Vaccine (2 - 2023-2 5 season) 2023 06/26/2020 INFLUENZA VACCINE (#1) 2024 , 04/17/2019, 03/18/2019, Additional history exists COLORECTAL SCREENING 09/03/2033 09/04/2023, 09/04/2023, 09/03/2023, Additional history exists Medical Devices Implanted Type Area Casino Accountant Device Identifier Shelf Expiration Date Model / Serial / Lot Capsule [employer] s-0635 - [id number] Implanted:Qty: 1 on 04/21/2020 by Jakob Suazo MD Other N/A: Esophagus [employer] COVIDIEN plush dresser. GIVEN 08/21/2021 FGS-0636 / / [id number] Description:Placed at 34 cm. ID # [id number] Capsule [employer] Test s-0635 - [id number] Implanted:Qty: 1 on 01/16/2022 by Andrew Horne DO at [facility] Other N/A: Esophagus [employer] COVIDIEN plush dresser. GIVEN 05/26/2023 FGS-0636 / / [id number] Description:PLACED AT 35CM Capsule Col[employer] Ph Testing [facility]-0635 - [id number] Implanted:Qty: 1 on 04/10/2023 by Andrew Horne DO at [facility] Other N/A: Esophagus [employer] COVIDIEN plush dresser. GIVEN 07/15/2024 S-0636 / / [id number] Description:implanted at cm in the esophagus Procedures Procedure Name Priority Date/Time Associated Diagnosis Comments COLONOSCOPY REPORT 09/04/2023 12 :34 PM CDT HEMOGLOBIN A1C Routine 06/10/2020 2:53 PM DITCH CLEANER from Last 3 Months or Most Recently Relevant to Health Maintenance Results * COLONOSCOPY REPORT (09/04/2023 12:34 PM CDT) Narrative Procedure Note Manolo Weller MD - 09/04/2023 12:34 PM CDT [facility] GI Patient Name: Jovanny Rico Procedure Date: 09/04/2023 Date of : 1980 Admit Type: Outpatient Age: 43 Attending MD: Manolo Weller , , Procedure: Colonoscopy Indications: High risk colon cancer surveillance: Personal history of non-advanced adenoma Providers: Manolo Weller Referring MD: Medicines: Monitored Anesthesia Care Complications: No immediate complications. Procedure: After I obtained informed consent, the scope was passed under direct vision. Throughout the procedure, the patient's blood pressure, pulse, and oxygen saturations were monitored continuously. The Colonoscope was introduced through the anus and advanced to the cecum, identified by appendiceal orifice and ileocecal valve. The colonoscopy was performed without difficulty. The patient tolerated the procedure well. The quality of the bowel preparation was evaluated using the BBPS ([place] Bowel Preparation Scale) with scores of: Right Colon = 2 (minor amount of residual staining, small fragments of stool and/or opaque liquid, but mucosa seen well), Transverse Colon = 3 (entire mucosa seen well with no residual staining, small fragments of stool or opaque liquid) and Left Colon = 2 (minor amount of residual staining, small fragments of stool and/or opaque liquid, but mucosa seen well). The total BBPS score equals 7. Estimated Blood Loss: Estimated blood loss: none. Findings: The entire examined colon appeared normal on direct and retroflexion views. Impression: - The entire examined colon is normal on direct and retroflexion views. - No specimens collected. Recommendation: - Repeat colonoscopy in 10 years for screening purposes. - Thank you for the referral. Manolo Weller, 09/04/2023 12:34:06 PM Number of Addenda: 0 Note Initiated On: 09/04/2023 11:58 AM Scope Withdrawal Time 0 hours 8 minutes 16 seconds Scope In: 12:12:55 PM Scope Out: 12:25:15 PM [address] [place], [place] Manolo Weller MD GI PROCEDURE ORDERABLES Final Result * (ABNORMAL) HEMOGLOBIN A1C (06/10/2020 2:53 PM DITCH CLEANER) HEMOGLOBIN A1C 5.9(H) <=5.6 % 06/11/2020 9:20 AM DITCH CLEANER [facility] Anhelo [facility] EST. AVG GLUCOSE, A1C 123 mg/dL 06/11/2020 9:20 AM DITCH CLEANER [facility] Anhelo [facility] Blood Venipuncture / Unknown 06/10/2020 2:53 PM DITCH CLEANER 06/10/2020 4:39 PM DITCH CLEANER Narrative [facility] - 06/11/2020 9:20 AM DITCH CLEANER HGB A1C INTERPRETATION NORMAL: <5.7% PRE-DIABETES: 5.7 - 6.4% DIABETES: 6.5% OR GREATER Vic Vuong MD CHEMISTRY ORDERABLES Final Resul t [facility] [address] [place] [address] [facility] CLIA# [id number] [address] [place] [address] from Last 3 Months or Most Recently Relevant to Health Maintenance Insurance MEDICAID [facility] [employer] MEDICAID Advance Directives For more information, please contact: [phone] * Full Code (Latest Code Status on File) Date Activated Date Inactivated Comments 09/04/2023 11:14 AM 09/04/2023 3:01 PM * Full Code Date Activated Date Inactivated Comments 09/03/2023 1:29 PM 09/03/2023 5:05 PM * Full Code Date Activated Date Inactivated Comments 06/05/2023 12:37 PM 06/05/2023 4:32 PM * Full Code Date Activated Date Inactivated Comments 04/10/2023 12:32 PM 04/12/2023 4:59 PM * Full Code Date Activated Date Inactivated Comments 01/16/2022 3:13 PM 01/16/2022 6:23 PM Care Teams Dry Cell Assembly Machine Tender Relationship Specialty Start Date End Date Anna Roach MD [address] [place] [address] PCP - General Family Practice 01/19/22
--- OUTSIDE RECORDS SUMMARY | 2024-11-21 02:22 | XMS_ITS | Encounter Summary ---
Author Organization [facility] Address [address] [place] [address] Care Team Providers Care Television Receiver Analyzer Name Role Phone Anna Roach MD Primary Care Provider [phone] Encounter Details Date Type Department Care Team (Late st Contact Info) Description 11/18/2024 External Device Data [facility] Provider, Abstract NO ADDRESS ON FILE Social History Tobacco Use Types Packs/Day Years Used Date Smoking Tobacco: Every Day Cigarettes Smokeless Tobacco: Former Chew Comments:09/01/21- 0.25 ppd Alcohol Use Standard Drinks/Week Comments Yes 3.3 (1 standard drink = 0.6 oz p ure alcohol) occ Feeling Safe Answer Date Recorded Are you in a relationship wi th someone who hurts you emotionally and/or physically? 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
--- NOTE | 2024-11-21 02:40 | XRR_ITS ---
PROCEDURE INFORMATION: Exam: XR Chest Exam date and time: 11/21/2024 2:46 AM Age: 44 years old Clinical indication: Pain; Right-sided; Prior surgery; Surgery date: 6+ months; Surgery type: Stents; Additional info: Chest pain TECHNIQUE: Imaging protocol: Radiologic exam of the chest. Views: 1 view. COMPARISON: CR XR chest 1V portable [id number] 09/18/2024 12:49 AM FINDINGS: Lungs: Linear platelike atelectasis features of the lung bases. Low lung volumes. Negative for consolidation. Pleural spaces: Unremarkable. No pleural effusion. No pneumothorax. Heart/Mediastinum: Unremarkable. No cardiomegaly. Diaphragm: Left diaphragm elevation redemonstrated. Bones/joints: Unremarkable. XR/XR chest 1V portable [id number] IMPRESSION: Negative for acute chest pathology.
[2024-11-21 03:18] LABS: Hematocrit 42.8 % (37-53); Hemoglobin 14.00 g/dL (11.27-16.99); Mean Corpuscular HGB Conc 32.7 g/dL (30-55); Mean Corpuscular Hemoglobin 28.7 pg (27-33); Mean Corpuscular Volume 87.7 fl (82-101); Nucleated Red Blood Cells % 0 %; Platelet Count 274 10^3/cmm (157-399); Red Blood Count 4.88 10^6/uL (3.85-5.65); White Blood Count 8.93 10^3/uL (3.29-11.43)
[2024-11-21 03:36] LABS: Troponin(5th) Baseline 9 ng/L (0-15)
[2024-11-21 04:00] LABS: Alanine Aminotransferase 33 U/L (0-41); Albumin Level 4.4 g/dL (3.5-5.2); Alkaline Phosphatase 139 U/L (40-130); Anion Gap 17.4 (5-19); Aspartate Amino Transferase 22 U/L (0-40); Blood Urea Nitrogen 11 mg/dL (6-20); Calcium 9.6 mg/dL (8.5-10.5); Carbon Dioxide 25 mmol/L (22-29); Chloride 105 mmol/L (98-107); Creatinine Clr Calc Pharmacy 159.4480; Globulin 2.2 g/dL (1.3-4.6); Glucose 136 mg/dL (65-115); Osmolality Calculated 297 mOsm/kg (285-295); Potassium 4.4 mmol/L (3.5-5.1); Sodium 143 mmol/L (136-145); Total Protein 6.6 g/dL (6.6-8.7)
--- NOTE | 2024-11-21 04:22 | ECG_ITS ---
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 Measurements Intervals [place] Rate: 97 P: 24 MD: 159 QRS: 18 QRSD: 96 T: 46 QT: 343 QTc: 438 Interpretive Statements SINUS RHYTHM WITH OCCASIONAL VENTRICULAR PREMATURE COMPLEXES Compared to ECG 09/18/2024 02:39:30 Ventricular premature complex(es) now present T-wave abnormality no longer present Possible ischemia no longer present Electronically Signed On 11-21-2024 14:06:41 CDT by Don Bradley M.D. [email or web address]
--- NOTE | 2024-11-21 04:29 | ED_ITS ---
HPI - Chest Pain 2 General: Chief Complaint: Chest Pain Stated Complaint: Chest Pain Time Seen by Provider: 11/21/24 03:34 History of Present Illness: 44-year-old male with history of CAD s/p LAD stent placement in July presents with sudden left-sided chest pain that awoke him at 00:30. Pain radiates down the left arm and into the back, rated 9/10, described as generally shitty, accompanied by clamminess and a sensation that his heart is racing. Three sublingual nitroglycerin tablets provided no relief. Pain worsens with deep inspiration and is reproducible with palpation. Denies recent cough or respiratory illness. No known family history of premature CAD. Takes cardiac medications as prescribed. Smokes ~2 cigarettes/day and uses nicotine lozenges. Related Data Home Medications ?Medication ?Instructions ?Recorded ?Confirmed ezetimibe 10 mg tablet 10 mg PO DAILY 05/25/2410/31 evolocumab 140 mg/mL subcutaneous 140 mg SUBCUT .every 2 weeks 08/12/24 11/11/24 pen injector (Megan Hadley) atorvastatin 80 mg tablet 80 mg PO BEDTIME 08/26/24 Previous Rx's ?Medication ?Instructions ?Recorded aspirin 81 mg tablet,delayed 81 mg PO DAILY 30 days #3 0 tabs 01/19/24 release clopidogrel 75 mg tablet 75 mg PO DAILY 90 days #90 t abs 08/12/24 loratadine 10 mg tablet (Allergy 10 mg PO DAILY PRN al lergy 08/12/24 Relief (loratadine)) symptoms #90 tabs hydralazine 25 mg tablet 25 mg PO TID hypertension #1 20 tabs 09/02/24 nitroglycerin 0.4 mg sublingual 0.4 mg sublingual Q5M PRN Chest 10/07/24 tablet Pain #25 tabs bupropion HCl 150 mg 24 hr tablet, 150 mg PO QAM 30 da ys #30 tabs 11/11/24 extended release (Wellbutrin XL) carvedilol 12.5 mg tablet 12.5 mg PO BID #180 tabs 03/26 dicyclomine 20 mg tablet 20 mg PO TID PRN esophageal spasm 11/11/24 #30 tabs duloxetine 60 mg capsule,delayed 60 mg PO DAILY 90 day s #90 caps 11/11/24 release furosemide 20 mg tablet 20 mg PO DAILY 90 days #90 t abs 11/11/24 gabapentin 600 mg tablet 600 mg PO QID PRN Pain 90 da ys 11/11/24 #360 tabs isosorbide mononitrate 30 mg 30 mg PO QAM 90 days #90 tabs 11/11/24 tablet,extended release 24 hr isosorbide mononitrate 60 mg 60 mg PO DAILY 90 days #9 0 tabs 11/11/24 tablet,extended release 24 hr mirtazapine 15 mg tablet 15 mg PO QPM 90 days #90 tab s 11/11/24 ondansetron 4 mg disintegrating 4 mg PO BID PRN nausea and 11/11/24 tablet vomiting #30 tabs pantoprazole 40 mg tablet,delayed See Rx Instructions .Route 11/11/24 release .COMPLEX #180 tabs valsartan 320 mg tablet 320 mg PO DAILY 90 days #90 tabs 11/11/24 Allergies Allergy/AdvReac Type Severity Reaction Status Date / Time No Known Allergies Allergy Verified 11/11/24 06:44 PFS ED 2 PFSH: Medical History (Updated 11/21/24 @ 05:48 by Andre Hurtado MD) Unstable angina Aorta aneurysm Chest pain Colon polyp Gastritis and duodenitis Eli esophagus Dilated aortic root Urolithiasis LAURA (generalized anxiety disorder) GERD (gastroesophageal reflux disease) Cervical radiculopathy HTN (hypertension) Dyslipidemia Gross hematuria Staghorn calculus Atherosclerosis of coronary artery Presence of stent in LAD coronary artery Central apnea Tobacco use Gastroesophageal reflux disease COPD (chronic obstructive pulmonary disease) Depression Surgical History Status post laser lithotripsy of ureteral calculus S/P ureteral stent placement Hx of heart artery stent H/O colonoscopy with polypectomy History of cholecystectomy Family History Father Heart disease Alcoholic Lung disease Mother Healthy adult Social History Smoking and tobacco/nicotine status: current every day tobacco/nicotine user (2 cigarettes per day ) cigarettes Packs smoked per day: 0.5 Years cigarettes smoked: 20 Alcohol intake: current Alcohol intake frequency: holidays/special occasions only Substance/Drug Use: never Marital status: Current occupational status: unemployed Physical Exam 2 Const: COMMON NORMALS: no acute distress, patient oriented x3 and alert HENMT: COMMON NORMALS: normocephalic and atraumatic HEAD & SCALP: n ormocephalic and atraumatic Eye: COMMON NORMALS: Equal, round and reactive pupils present, EOMs intact bilaterally and no scleral icterus PUPIL: Yes Equal, round and reactive pupils present Chest: OTHER: Chest pain is reproducible with deep inspiration and palpation of the chest wall anteriorly. Resp: COMMON NORMALS: normal respiratory effort and No retractions Cardio: COMMON NORMALS: regular rate, regular rhythm and No murmurs present (Cardio) RATE: regular rate RHYTHM: regular rhythm GI: COMMON NORMALS: Normal to inspection, nondistended, normoactive bowel sounds present, Soft to palpation and non-tender PALPATION: Yes Soft to palpation Neuro: COMMON NORMALS: patient oriented x3 SENSORIUM/ORIENTATION: Yes alert Psych: OTHER: Mildly anxious Skin: COMMON NORMALS: no rashes or lesions noted GENERAL SKIN EXAM: no rashes or lesions noted Course 2 Vital Signs: Vital signs: Vital Signs Temperature 98 F 11/21/24 02:27 Pulse Rate 76 11/21/24 05:00 Respiratory Rate 22 H 11/21/24 04:37 Blood Pressure 130/93 11/21/24 05:00 Pulse Oximetry 92 11/21/24 05:00 MDM - Chest Pain Medical Decision Making Patient remained hemodynamically stable throughout ED course. Initial troponin and EKG are reassuring. Both will be repeated given his history of recent stent placement in the LAD. He states he has been compliant with his home medications. Pain is better and troponin x 2 is negative. EKG shows nothing acute. He will be discharged in stable and improved condition. Lab Data 11/21/24 03:14 11/21/24 03:14 Radiology Impressions Chest X-Ray 11/21/24 02:40 IMPRESSION: Negative for acute chest pathology. Laboratory Results WBC 8.93 10^3/uL (3.29-11.43) 11/21/24 03:14 RBC 4.88 10^6/uL (3.85-5.65) 11/21/24 03:14 Hgb 14.00 g/dL (11.27-16.99) 11/21/24 03:14 Hct 42.8 % (37-53) 11/21/24 03:14 MCV 87.7 fl (82-101) 11/21/24 03:14 MCH 28.7 pg (27-33) 11/21/24 03:14 MCHC 32.7 g/dL (30-55) 11/21/24 03:14 RDW 14.7 % (12.1-15.1) 11/21/24 03:14 Plt Count 274 10^3/cmm (157-399) 11/21/24 03:14 MPV 9.6 fL (7.4-10.4) 11/21/24 03:14 Neut % (Auto) 47.4 % 11/21/24 03:14 Lymph % (Auto) 34.6 % 11/21/24 03:14 [place] % (Auto) 12.1 % 11/21/24 03:14 Eos % (Auto) 4.5 % 11/21/24 03:14 Baso % (Auto) 1.0 % 11/21/24 03:14 Neut # (Auto) 4.23 10^3/uL (1.8-7.7) 11/21/24 03:14 Lymph # (Auto) 3.1 10^3/uL (0.8-4.8) 11/21/24 03:14 [place] # (Auto) 1.1 10^3/uL (0.2-0.9) H 11/21/24 03:14 Eos # (Auto) 0.4 10^3/uL (0.0-0.8) 11/21/24 03:14 Baso # (Auto) 0.1 10^3/uL (0.0-0.1) 11/21/24 03:14 Nucleated RBC % (auto) 0 % 11/21/24 03:14 Nucleated RBCs # 0.0 /100WBC 11/21/24 03:14 Sodium 143 mmol/L (136-145) 11/21/24 03:14 Potassium 4.4 mmol/L (3.5-5.1) 11/21/24 03:14 Chloride 105 mmol/L (98-107) 11/21/24 03:14 Carbon Dioxide 25 mmol/L (22-29) 11/21/24 03:14 Anion Gap 17.4 (5-19) 11/21/24 03:14 BUN 11 mg/dL (6-20) 11/21/24 03:14 Creatinine 0.7 mg/dL (0.7-1.2) 11/21/24 03:14 GFR Calculation 123.1 mL/min (90-130) 11/21/24 03:14 Glucose 136 mg/dL (65-115) H 11/21/24 03:14 Calculated Osmolality 297 mOsm/kg (285-295) H 11/21/24 03:14 Calcium 9.6 mg/dL (8.5-10.5) 11/21/24 03:14 Total Bilirubin 0.2 mg/dL (0.15-1.2) 11/21/24 03:14 AST 22 U/L (0-40) 11/21/24 03:14 ALT 33 U/L (0-41) 11/21/24 03:14 Alkaline Phosphatase 139 U/L (40-130) H 11/21/24 03:14 Troponin T Baseline 9 ng/L (0-15) 11/21/24 03:14 Troponin T 120 Minute 10.36 ng/L (0-15) 11/21/24 04:48 Delta Troponin T 1.36 ABS# (0-10) 11/21/24 04:48 Total Protein 6.6 g/dL (6.6-8.7) 11/21/24 03:14 Albumin 4.4 g/dL (3.5-5.2) 11/21/24 03:14 Globulin 2.2 g/dL (1.3-4.6) 11/21/24 03:14 All radiology interpretation(s) finalized by discharge EKG Data EKG 1: Interpretation: Time?220?sinus rhythm with infrequent PVCs, rate of 97, no ST segment elevation or depression, no T wave inversions, QTc = 398 Discharge Plan Discharge Patient Disposition: Home Clinical Impression: Chest pain Condition: Stable Prescriptions: No Action Repatha SureClick 140 mg/mL pen injector 140 mg SUBCUT .every 2 weeks loratadine [Allergy Relief (loratadine)] 10 mg tablet 10 mg PO DAILY PRN (Reason: allergy symptoms) Qty: 90 3RF clopidogrel 75 mg tablet 75 mg PO DAILY 90 Days Qty: 90 2RF bupropion HCl [Wellbutrin XL] 150 mg tablet extended release 24 hr 150 mg PO QAM 30 Days Qty: 30 5RF carvedilol 12.5 mg tablet 12.5 mg PO BID Qty: 180 2RF valsartan 320 mg tablet 320 mg PO DAILY 90 Days Qty: 90 3RF dicyclomine 20 mg tablet 20 mg PO TID PRN (Reason: esophageal spasm) Qty: 30 5RF duloxetine 60 mg capsule,delayed release(DR/EC) 60 mg PO DAILY 90 Days Qty: 90 2RF furosemide 20 mg tablet 20 mg PO DAILY 90 Days Qty: 90 2RF gabapentin 600 mg tablet 600 mg PO QID PRN (Reason: Pain) 90 Days Qty: 360 2RF isosorbide mononitrate 30 mg tablet extended release 24 hr 30 mg PO QAM 90 Days Qty: 90 1RF Rx Instructions: take with 60mg to equal 90mg daily isosorbide mononitrate 60 mg tablet extended release 24 hr 60 mg PO DAILY 90 Days Qty: 90 1RF Rx Instructions: take with 30mg to equal 90mg daily mirtazapine 15 mg tablet 15 mg PO QPM 90 Days Qty: 90 2RF ondansetron 4 mg tablet,disintegrating 4 mg PO BID PRN (Reason: nausea and vomiting) Qty: 30 5RF pantoprazole 40 mg tablet,delayed release (DR/EC) See Rx Instructions .ROUTE .COMPLEX Qty: 180 2RF Dose Instruction: Take 1 tablet by mouth twice daily Rx Instructions: Take 1 tablet by mouth twice daily hydralazine 25 mg tablet 25 mg PO TID Qty: 120 2RF nitroglycerin 0.4 mg tablet, sublingual 0.4 mg sublingual Q5M PRN (Reason: Chest Pain) Qty: 25 0RF Rx Instructions: do not exceed 3 doses per episode atorvastatin 80 mg tablet 80 mg PO BEDTIME aspirin 81 mg tablet,delayed release (DR/EC) 81 mg PO DAILY 30 Days Qty: 30 0RF ezetimibe 10 mg tablet 10 mg PO DAILY Discharge Orders: Discharge ED (Routine); Ordered 11/21/24 Ordered By: Andre Hurtado Referrals: Anna Roach MD [Primary Care Provider, Family Practice] Discharge Diet: Usual diet Discharge Activity: Increase activity as tolerated Patient Instructions: Noncardiac Chest Pain (ED), Patient Portal & Candi Instructions Activity Restrictions/Additional Instructions: Your blood tests, chest x-ray, and EKG are all reassuring with no evidence of heart attack or other emergency requiring hospitalization. You do not need another stent. Pain should get better with time. Please follow-up with your primary care doctor. Print Language: Cymro Coding Level of Care Code ED Audit Clerk for Clair Mathew
[2024-11-21] MEDS: morphine 4 mg/mL SDV 1 mL 6 MG IVP (04:37)
[2024-11-21] MEDS: LORazepam 1 MG/0.5 ML injection 0.5 MG IVP (04:38)
[2024-11-21 05:21] LABS: Troponin 5 2HR 10.36 ng/L (0-15); Troponin 5 2HR Delta 1.36 ABS# (0-10)
== END 2024-11-21 06:02 | disposition home or self-care (01) ==
PROVIDERS: Emergency Provider Student in an Organized Health Care Education/Training Program; PCP Family Medicine
DX: R07.9 Chest pain, unspecified (principal); Z79.02 Long term (current) use of antithrombotics/antiplatelets; Z79.82 Long term (current) use of aspirin; F17.210 Nicotine dependence, cigarettes, uncomplicated; J44.9 Chronic obstructive pulmonary disease, unspecified; E78.5 Hyperlipidemia, unspecified; I10 Essential (primary) hypertension; I25.10 Atherosclerotic heart disease of native coronary artery without angina pectoris
CPT/HCPCS: 36415; 71045; 80053; 84484; 85025; 93005; 96374; 96375; 99285; J2060; J2270

== ENCOUNTER → 2025-03-09 08:34 | Outpatient (BNVA) | payer MEDICAID, SELFPAY | PROVIDERS: PCP Family Medicine; Visit Provider Family Medicine | DX: I10 Essential (primary) hypertension (principal); Z13.1 Encounter for screening for diabetes mellitus; R73.9 Hyperglycemia, unspecified | CPT/HCPCS: 80053; 83036; 85025 ==